=== PATIENT | female | born 1975 | race Caucasian/White ===

== ENCOUNTER → 2016-05-18 | Outpatient (CLI) | payer MEDICARE ==
--- NOTE | 2016-06-04 01:22 | ECWPNPC ---
PATIENT NAME: SAEED MCLEOD : 1975 GENDER: FEMALE VISIT DATE: 05/18/2016 DISCHARGE DATE: 05/18/16 1510 VISIT LOCKED DATE TIME: PHYSICIAN: SAWYER CASE RESOURCE: SAWYER CASE REASON FOR APPOINTMENT 1. BACK HISTORY OF PRESENT ILLNESS HISTORY OF PRESENT ILLNESS: PAIN THE PATIENT DESCRIBES THE PAIN... FALL RISK SCREENING: SCREENING :NO FALLS IN THE PAST YEAR NEW PATIENT CONSULT: WHEN DID YOUR PAIN FIRST START? . BRIEFLY DESCRIBE HOW YOUR PAIN STARTED? . HOW DOES YOUR PAIN CHANGE WITH TIME? . DOES YOUR PAIN AWAKEN YOU FROM SLEEP? . HOW MANY HOURS OF SLEEP DO YOU NORMALLY GET? . ANY DIAGNOSTIC TESTING? . FACILITY WHERE TESTS WERE DONE? ____. PAIN TREATMENT TREATMENT YES CANCER HAVE YOU EVER HAD ANY TYPE OF CANCER?NO NO. 41 Y/O FEMALE WITH LONG HX OF LOW BACK PAIN WITH INTERMITTENT BILATERAL LEG PAIN AND PARATHESIA.PAIN BEGAN AFTER FULL TERM VAGINAL DELIVERY IN 1995,HISTORY OF TWO LUMBAR SURGERIES AT AGE 21 AND 24.REPORTS NO IMPROVEMENT POST SURGERY.DENIES ANY INJURIES OR MVA IN PAST.STRONG FAMILY HX OF BACK PROBLEMS.HAS A 34 Y/O SISTER W HX OF 7 BACK SURGERIES AND FUSION.HAS A 35 Y/O BROTHER WITH HX OF TWO BACK SURGERIES AT A YOUNG AGE.CURRENTLY USING MSCONTIN 30MG BID AND MSIR 15MG 1/2 TAB UP TO 2 TAB PER DAY FOR SEVERE BTP.ALSO USES INVERSION TABLE PRN WHICH IS HELPFUL.OVER THE PAST 6MOS PAIN HAS GOTTEN WORSE AND SHE BEGAN TO EXPERIENCE NECK AND THORACIC BACK PAIN.PATIENT IS VERY WORRIED THAT HER ENTIRE BACK IS GIVING OUT.SHE SPENDS ALOT OF TIME IN BED PAST 6MOS BTP MEDICATION AND INVERSION TABLE HAVE NOT BEEN HELPFUL.HAS TRIALED LESI IN PAST APROXIMATLEY 5 YEARS AGO.SHE HAS BEEN OFFERED LUMBAR FUSION BUT STATES SHE WILL NEVER HAVE ANOTHER BACK SURGERY.PAIN IS AGGRVATED BY PROLONGED STANDING IE >10MIN.MOST PAIN IS LOCATED ACROSS LOW BACK WITH INTERMITTENT EPISODES OF BILATERAL RADICULAR SYMPTOMS.DENIES BOWEL OR BLADDER INCONTINENCE.DENIES RECENT FEVER ,ILLNESS OR WEIGHT LOSS.TODAY 05-18-16 PATIENT DOES REPORT IMPROVEMENT IN HER ABILITY TO TOLERATE PAIN BETTER WITH USE OF MS CONTIN 30MG AND MSIR 15MG PRN ORDERED AT INITIAL VISIT ONE MOS. AGO.DENIES SIDE EFFECTS.RATING PAIN VAS 6/10. CURRENT MEDICATIONS TAKING OMEPRAZOLE 40 MG CAPSULE DELAYED RELEASE 1 CAPSULE ORALLY ONCE A DAY TAKING NAPROXEN 500 MG TABLET 1 TABLET NEEDED ORALLY EVERY 12 HRS TAKING MULTI VITAMIN DAILY - TABLET 1 TABLET ORALLY ONCE A DAY TAKING MORPHINE SULFATE ER 30 MG TABLET EXTENDED RELEASE 1 TABLET ORALLY EVERY 12 HRS TAKING MORPHINE SULFATE 15 MG TABLET 1/2 TABLET ORALLY BID PRN BREAKTHROUGH PAIN NOT-TAKING LYRICA 50 MG CAPSULE 1 CAPSULE ORALLY BID NOT-TAKING BACTRIM 400-80 MG TABLET 2 TABLETS ORALLY ONCE A DAY MEDICATION LIST REVIEWED AND RECONCILED WITH THE PATIENT PAST MEDICAL HISTORY CHRONIC BACK PAIN EMG SHOWS MILD, CHRONIC L S1 AND POSSIBLY L5 RADICULOPATHY; MILD CHRONIC R L5 RADICULOPATHY (08/2015) ALLERGIES ASPIRIN: SWELLING : ALLERGY GABAPENTIN: "FELT YUCKY": SIDE EFFECTS SOCIAL HISTORY GENERAL: TOBACCO USE ARE YOU A:NONSMOKER LEARNING BARRIERS / SPECIAL NEEDS ORIENTED TO PLAN OF CARE: PATIENT, PAIN MANAGEMENT PATIENT, ORIENTED TO PLAN OF CARE: PATIENT, PAIN MANAGEMENT PATIENT. NEW PATIENT PAIN DIARY TODAY'S VISITNOTES FROM 0-10, WHAT LEVEL IS YOUR PAIN TODAY?0 PAIN CLINIC PFS, CLERGY, PUBLIC HEALTH REFERRALS PFS REFERRAL NEEDED?NO CLERGY REFERRAL NEEDED?NO PUBLIC HEALTH REFERRAL NEEDED?NO WAS THE PROVIDER NOTIFIED OF ANY PERTINENT INFO?NO PFS REFERRAL NEEDED?NO CLERGY REFERRAL NEEDED?NO PUBLIC HEALTH REFERRAL NEEDED?NO WAS THE PROVIDER NOTIFIED OF ANY PERTINENT INFO?NO REVIEW OF SYSTEMS CONSTITUTIONAL: ANY CHANGE IN YOUR MEDICAL CONDITION? NO . CHILLS NO . FEVER NO . INFECTION: DO YOU HAVE NEW INFECTIONS? NO . DO YOU HAVE HISTORY OF MRSA? NO . MUSCULOSKELETAL: ANY NEW PATTERNS OF PAIN OR NUMBNESS? NO . GASTROENTEROLOGY: ANY NEW CHANGE IN BOWEL CONTROL? NO . GENITOURINARY: ANY NEW CHANGE IN BLADDER CONTROL? NO . IS THERE A CHANCE YOU COULD BE ? NO . HEMATOLOGY/LYMPH: DO YOU TAKE ANY BLOOD THINNERS? (FOR EXAMPLE- COUMADIN, PLAVIX, AGGRENOX, PLATEL, PRADAXA, OR XARELTO) NO . WHEN WAS YOUR LAST DOSE? DATE: TIME: . NEUROLOGY: HAVE YOU FALLEN IN THE PAST 6 MONTHS? NO . ANY NEW EXTREMITY NUMBNESS OR WEAKNESS? NO . CARDIOLOGY: DO YOU HAVE A PACEMAKER OR DEFIBRILLATOR? NO . RESPIRATORY: HAVE YOU BEEN SICK IN THE PAST WEEK? NO . FEVER NO . FLU LIKE SYMPTOMS? NO . COUGH NO . INTEGUMENTARY: DO YOU HAVE ANY RASHES OR OPEN SORES? NO . ALLERGIC/IMMUNO: ARE YOU ALLERGIC TO SHELLFISH OR IV DYE? NO . ANY NEW ALLERGIES? NO . PSYCHIATRIC: DO YOU HAVE THOUGHTS OF HURTING YOURSELF OR SOMEONE ELSE? NO . ARE YOU ABUSED, NEGLECTED, OR IN AN UNSAFE ENVIRONMENT? NO . ENDOCRINOLOGY: ARE YOU DIABETIC? NO . OTHER: DO YOU NEED ANY PRESCRIPTIONS? YES-05/22/16 . IF YES, PLEASE LIST: MORPHINE SULFATE ER 30MG AND MORPHINE SULFATE IR 15 MG TABS . ANY NEW PROBLEMS WITH YOUR MEDICATIONS? NO . WHEN DID YOU LAST EAT? ____ . WHEN DID YOU LAST DRINK? ____ . WHAT DID YOU LAST DRINK? ____ . NAME OF PERSON DRIVING YOU HOME? ____ . DO YOU HAVE ANY OTHER QUESTIONS OR CONCERNS NO . REVIEWED BY: PROVIDER: SAWYER BARAJAS . VITAL SIGNS WT 107 LBS, HT 64 IN, BMI 18.36 INDEX, BP 144/75 MM HG, HR 86 /MIN, RR 16 /MIN, TEMP 98.8 F, OXYGEN SAT % 99, NA INITIALS TL 1426, REVIEWED BY: AM. EXAMINATION GENERAL EXAMINATION: HEENT:HEAD:, NORMOCEPHALIC, EYES:, EYES NORMAL, NOSE:, NOSE CLEAR, THROAT: NORMAL. LUNGS:LUNG SOUNDS ARE CLEAR. HEART:HEART RATE REGULAR. ABDOMEN:SOFT AND NOT TENDER, NON-DISTENDED. MUSCULOSKELETAL:*. LUMBAR SACRAL SPINEMUSCLE STRENGTH TESTING 5/5 BILATERAL, PALPATION: NEGATIVE FOR PAIN OVER L/S SPINE. TENDERNESS NOTED OVER LEFT LUMBAR PARASPINAL.. THORACIC SPINENEGATIVE FOR PAIN WITH PALPATION OF THORACIC SPINE. NEGATIVE FOR PAIN WITH PALPATION OF THORACIC PARASPINAL. CERVICALNEGATIVE FOR PAIN WITH PALPATION OF CERVICAL SPINE. NEGATIVE FOR PAIN WITH PALPATION OF CERVICAL PARASPINALS. NEGATIVE FOR PAIN WITH PALPATION OF TRAPEZIUS BILAT. SKIN:PINKISH RED LACE LIKE DISCOLORATION OVER LOW BACK.PATIENT STATES IT IS FROM HEATING PAD.. NEUROLOGIC EXAM:ALERT AND ORIENTED X 3, DTRS 1-2+ IN ALL 4 EXTREMITIES, DENIES UPPER EXTREMETIES SENSORY LOSS, DENIES LOWER EXTREMETIES SENSORY LOSS. DIAGNOSTIC:MRI L/S [id number]-DIFFUSE DISC BULGE L4-5 AND DIFFUSE DISC BULGE AND RETROLITHESIS AT THE L5-S1 LEVEL.THE DISC BULGE AT L5-S1 ABUTS THE S1 NERVES.NO SIGNIFICANT CHANGE FROM 02-06-08 MRI. NCS LOWER [id number]-MILD,CHRONIC OR OLD LEFT S1 AND POSSIBLY L5 RADICULOPATHY.MILD ,CHRONICOR OLD RIGHT L5 RADICULOPATHY.. ASSESSMENTS LUMBAR POST-LAMINECTOMY SYNDROME - M96.1 (PRIMARY) CERVICALGIA - M54.2 PAIN IN THORACIC SPINE - M54.6 CHRONIC PRESCRIPTION OPIATE USE - Z79.891 TREATMENT LUMBAR POST-LAMINECTOMY SYNDROME REFILL MORPHINE SULFATE ER TABLET EXTENDED RELEASE, 30 MG, 1 TABLET, ORALLY, EVERY 12 HRS, 30 DAY(S), 60, REFILLS 0 REFILL MORPHINE SULFATE TABLET, 15 MG, 1/2 TABLET, ORALLY, BID PRN BREAKTHROUGH PAIN, 30 DAY(S), 30, REFILLS 0 PROCEDURE CODES FA211 ESTABILISHED PATIENT [facility] CHARGE G8730 PAIN ASSESS POS TOOL F/U PLAN DOC G8427 DOC MEDS VERIFIED W/PT OR RE FOLLOW UP [address] LONGO TO DISCUSS DCS ELECTRONICALLY SIGNED BY KARL MONCADA ON 06/03/2016 AT 05:11 PM EST DISCLAIMER : THIS IS A VISIT SUMMARY EXTRACTED FROM THE [employer] CHART. IT IS NOT A COPY OF THE [employer] PROGRESS NOTE. TIMOTHY
== END ==
LOC: M PAIN 14:20
PROVIDERS: ATTEND Nurse Practitioner Family
DX: Z09 Encounter for follow-up examination after completed treatment for conditions other than malignant neoplasm (principal); G89.29 Other chronic pain; M96.1 Postlaminectomy syndrome, not elsewhere classified; M54.2 Cervicalgia; M54.6 Pain in thoracic spine; Z88.8 Allergy status to other drugs, medicaments and biological substances; Z79.891 Long term (current) use of opiate analgesic; Z79.899 Other long term (current) drug therapy
CPT/HCPCS: G0463 ×2

== ENCOUNTER → 2016-07-08 | Outpatient (CLI) | payer MEDICARE ==
--- NOTE | 2016-07-17 23:51 | ECWPNPC ---
PATIENT NAME: SAEED MCLEOD : 1975 GENDER: FEMALE VISIT DATE: 07/08/2016 DISCHARGE DATE: 07/08/16 1444 VISIT LOCKED DATE TIME: PHYSICIAN: TYLER LONGO RESOURCE: TYLER LONGO REASON FOR APPOINTMENT 1. DISCUSS POSSIBLE DCS HISTORY OF PRESENT ILLNESS HISTORY OF PRESENT ILLNESS: PAIN THE PATIENT DESCRIBES THE PAIN... 41 YEAR OLD FEMALE PATIENT WITH HISTORY OF CHRONIC THORACIC AND LUMBAR PAIN. PATIENT DESCRIBES THE PAIN . TENDER WITH A PAIN SCORE OF 3/10 ON TODAY'S VISIT. PATIENT REPORTS THAT WHEN SHE SITS FOR A LONG PERIOD OF TIME THE PAIN WORSENS AND BEGINS TO SPREAD. PATIENT STATES THAT SINCE SHE HAS ARRIVED THE PAIN IS RADIATING DOWN HER LEGS WITH THE LEG HURTING MORE THAN THE RIGHT. ALSO NOW HER PAIN IS GOING PASS HER NECK AREA AND RADIATING TO HER SHOULDERS ESPECIALLY HER RIGHT SHOULDER. PATIENT REPORTS THAT SHE HAS DIFFICULTIES SLEEPING AT NIGHT, BUT USUALLY ONCE SHE TAKES HER MEDICATION SHE CAN STAY ASLEEP. PATIENT STATES THAT SHE HAS HAD THIS PAIN SINCE SHE WAS 20 YEARS OLD. PATIENT REPORTS THAT SHE HAS HAD TWO SURGERIES IN HER BACK ONE WHEN SHE WAS 23 AND THE SECOND WHEN SHE WAS 24. PATIENT STATES THAT SHE HAS BEEN TAKING MORPHINE SINCE SEPTEMBER. PATIENT REPORTS THAT SINCE SHE HAS STARTED ON MORPHINE SHE HAS SEEN AN INCREASED IN HER QUALITY OF LIFE, BUT IT DOES NOT TAKE ALL THE PAIN AWAY, BUT IT HAS ALLOWED HER TO BE MORE MOBILE. PATIENT REPORTS THAT SHE IS SEEING ME TODAY TO DISCUSS THE POSSIBILITY OF A DCS. PATIENT REPORTS THAT SHE HAS TRIED INJECTIONS IN THE PAST AND THEY DID NOT WORK. PATIENT REPORTS THAT HER THORACIC AND LUMBAR BACK HURTS THE MOST. PATIENT DENIES UNEXPLAINABLE WEIGHT LOSS, FEVER, CHILLS, NEW CHANGES ON HIS/HER URINARY OR BOWEL CONTROL. FALL RISK SCREENING: SCREENING :NO FALLS IN THE PAST YEAR CURRENT MEDICATIONS TAKING OMEPRAZOLE 40 MG CAPSULE DELAYED RELEASE 1 CAPSULE ORALLY ONCE A DAY TAKING MULTI VITAMIN DAILY - TABLET 1 TABLET ORALLY ONCE A DAY TAKING MORPHINE SULFATE ER 30 MG TABLET EXTENDED RELEASE 1 TABLET ORALLY EVERY 12 HRS TAKING MORPHINE SULFATE 15 MG TABLET 1/2 TABLET ORALLY BID PRN BREAKTHROUGH PAIN TAKING NAPROXEN 500 MG TABLET 1 TABLET NEEDED ORALLY EVERY 12 HRS NOT-TAKING LYRICA 50 MG CAPSULE 1 CAPSULE ORALLY BID NOT-TAKING BACTRIM 400-80 MG TABLET 2 TABLETS ORALLY ONCE A DAY MEDICATION LIST REVIEWED AND RECONCILED WITH THE PATIENT PAST MEDICAL HISTORY CHRONIC BACK PAIN EMG SHOWS MILD, CHRONIC L S1 AND POSSIBLY L5 RADICULOPATHY; MILD CHRONIC R L5 RADICULOPATHY (08/2015) ALLERGIES ASPIRIN: SWELLING : ALLERGY GABAPENTIN: "FELT YUCKY": SIDE EFFECTS SURGICAL HISTORY LAMINECTOMY 1997 ACK SURGERY AGAIN 1998 FAMILY HISTORY NO FAMILY HISTORY DOCUMENTED. SOCIAL HISTORY GENERAL: TOBACCO USE ARE YOU A:NONSMOKER LEARNING BARRIERS / SPECIAL NEEDS ORIENTED TO PLAN OF CARE: PATIENT, PAIN MANAGEMENT PATIENT, ORIENTED TO PLAN OF CARE: PATIENT, PAIN MANAGEMENT PATIENT. NEW PATIENT PAIN DIARY TODAY'S VISITNOTES FROM 0-10, WHAT LEVEL IS YOUR PAIN TODAY?0 PAIN CLINIC PFS, CLERGY, PUBLIC HEALTH REFERRALS PFS REFERRAL NEEDED?NO CLERGY REFERRAL NEEDED?NO PUBLIC HEALTH REFERRAL NEEDED?NO WAS THE PROVIDER NOTIFIED OF ANY PERTINENT INFO?NO PFS REFERRAL NEEDED?NO CLERGY REFERRAL NEEDED?NO PUBLIC HEALTH REFERRAL NEEDED?NO WAS THE PROVIDER NOTIFIED OF ANY PERTINENT INFO?NO HOSPITALIZATION/MAJOR DIAGNOSTIC PROCEDURE NO HOSPITALIZATION HISTORY. REVIEW OF SYSTEMS CONSTITUTIONAL: ANY CHANGE IN YOUR MEDICAL CONDITION? NO . CHILLS NO . FEVER NO . INFECTION: DO YOU HAVE NEW INFECTIONS? NO . DO YOU HAVE HISTORY OF MRSA? NO . MUSCULOSKELETAL: ANY NEW PATTERNS OF PAIN OR NUMBNESS? NO . GASTROENTEROLOGY: ANY NEW CHANGE IN BOWEL CONTROL? NO . GENITOURINARY: ANY NEW CHANGE IN BLADDER CONTROL? NO . IS THERE A CHANCE YOU COULD BE ? NO . HEMATOLOGY/LYMPH: DO YOU TAKE ANY BLOOD THINNERS? (FOR EXAMPLE- COUMADIN, PLAVIX, AGGRENOX, PLATEL, PRADAXA, OR XARELTO) NO . WHEN WAS YOUR LAST DOSE? DATE: TIME: . NEUROLOGY: HAVE YOU FALLEN IN THE PAST 6 MONTHS? NO . ANY NEW EXTREMITY NUMBNESS OR WEAKNESS? NO . CARDIOLOGY: DO YOU HAVE A PACEMAKER OR DEFIBRILLATOR? NO . RESPIRATORY: HAVE YOU BEEN SICK IN THE PAST WEEK? NO . FEVER NO . FLU LIKE SYMPTOMS? NO . COUGH NO . INTEGUMENTARY: DO YOU HAVE ANY RASHES OR OPEN SORES? NO . ALLERGIC/IMMUNO: ARE YOU ALLERGIC TO SHELLFISH OR IV DYE? NO . ANY NEW ALLERGIES? NO . PSYCHIATRIC: DO YOU HAVE THOUGHTS OF HURTING YOURSELF OR SOMEONE ELSE? NO . ARE YOU ABUSED, NEGLECTED, OR IN AN UNSAFE ENVIRONMENT? NO . ENDOCRINOLOGY: ARE YOU DIABETIC? NO . OTHER: DO YOU NEED ANY PRESCRIPTIONS? NO . IF YES, PLEASE LIST: ____ . ANY NEW PROBLEMS WITH YOUR MEDICATIONS? NO . WHEN DID YOU LAST EAT? ____ . WHEN DID YOU LAST DRINK? ____ . WHAT DID YOU LAST DRINK? ____ . NAME OF PERSON DRIVING YOU HOME? ____ . DO YOU HAVE ANY OTHER QUESTIONS OR CONCERNS NO . REVIEWED BY: PROVIDER: TYLER LONGO MD . VITAL SIGNS WT 107 LBS, HT 64 IN, BMI 18.36 INDEX, BP 128/79 MM HG, HR 67 /MIN, RR 16 /MIN, TEMP 98.5 F, OXYGEN SAT % 98, SAFE IN ENV? (Y/N) YES, NA INITIALS TL 1325, REVIEWED BY: MOHINDER. EXAMINATION : PATIENT IS ALERT O X 3 AND COOPERATIVE. PATIENT HAS DIFFICULTIES STANDING UP FOR THE EXAMINATION. PATIENT AMBULATES WITH A LIMP ON THE LEFT LEG. PATIENT IS ABLE TO FLEX HER BACK TO 90 DEGREES AND EXTEND HER BACK TO 5 DEGREES. PATIENT HAS TENSION IN THE BACK AND LEFT LEG. PATIENT IS ABLE TO ABDUCT HER UPPER EXTREMITIES. THERE IS A LEFT SACROILIAC JOINT DYSFUNCTION. BOTH LEGS ARE RATHER WEAK. MRI OF THE LUMBAR SPINE DONE ON 09-03-2015 SHOWS DISC BULGES AND POST LAMINECTOMY CHANGES. MRI OF THE THORACIC SPINE DONE ON 04-19-2016 SHOWS DISC PROTRUSIONS AND DISC EXTRUSIONS. 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 MCLEOD'S PAIN MANAGEMENT CASE. I DISCUSSED IN DETAIL WITH THE PATIENT, THAT I BELIEVE SHE IS NOT NECESSARILY THE BEST CANDIDATE FOR A DCS DUE TO THE PAIN SHE IS EXPERIENCING IS MAINLY AXIAL PAIN IN HER THORACIC AND LUMBAR SPINE. I AM ALWAYS WILLING TO DO ATRIAL BUT ADVICE TO TRY OTHER PROCEDURES FIRST. I DISCUSSED WITH THE PATIENT THAT I AM CONCERN ABOUT HER MORPHINE INTAKE. PATIENT ACKNOWLEDGES MY CONCERNS AND STATES THAT SHE WOULD LIKE TO COME OFF MORPHINE IF THERE WAS AN ALTERNATIVE THAT WOULD HELP TO TAKE HER PAIN AWAY. I DISCUSSED WITH THE PATIENT AT THIS TIME IT WOULD BE BEST TO PROCEED WITH INJECTIONS TO SEE HOW THE INTERVENTIONS WILL AFFECT HER PAIN. PATIENT TO FOLLOW UP WITH SAWYER CASE IN 2 WEEKS. , INSTRUCTIONS WERE GIVEN, QUESTIONS WERE ANSWERED, PATIENT REPORTS UNDERSTANDING AND AGREES WITH THE PLAN. I, TIFFANY CLAYTON, DOCUMENTED THE ABOVE INFORMATION ACTING A SCRIBE FOR DR. LONGO. I HAVE REVIEWED THE ABOVE DOCUMENT, WRITTEN BY TIFFANY CLAYTON SCRIBE AND I VERIFY THAT IT IS ACCURATE. PROCEDURE CODES FA211 ESTABILISHED PATIENT [facility]AC[facility] CHARGE G8730 PAIN ASSESS POS TOOL F/U PLAN DOC G8427 DOC MEDS VERIFIED W/PT OR RE DISPOSITION & COMMUNICATION FOLLOW UP 2 WEEKS ELECTRONICALLY SIGNED BY TYLER LONGO MD ON 07/17/2016 AT 08:34 PM EDT DISCLAIMER : THIS IS A VISIT SUMMARY EXTRACTED FROM THE [employer] CHART. IT IS NOT A COPY OF THE [employer] PROGRESS NOTE. TIMOTHY
== END ==
LOC: M PAIN 13:20
PROVIDERS: ATTEND Anesthesiology
DX: M96.1 Postlaminectomy syndrome, not elsewhere classified (principal); M46.1 Sacroiliitis, not elsewhere classified; M51.17 Intervertebral disc disorders with radiculopathy, lumbosacral region; M51.16 Intervertebral disc disorders with radiculopathy, lumbar region; G89.29 Other chronic pain; Z79.899 Other long term (current) drug therapy; F17.200 Nicotine dependence, unspecified, uncomplicated; Z88.6 Allergy status to analgesic agent

== ENCOUNTER → 2016-07-22 | Outpatient (CLI) | payer MEDICARE ==
--- NOTE | 2016-07-28 00:02 | ECWPNPC ---
PATIENT NAME: SAEED MCLEOD : 1975 GENDER: FEMALE VISIT DATE: 07/22/2016 DISCHARGE DATE: 07/22/16 1553 VISIT LOCKED DATE TIME: PHYSICIAN: SAWYER CASE RESOURCE: SAWYER CASE REASON FOR APPOINTMENT 1. MEDS HISTORY OF PRESENT ILLNESS HISTORY OF PRESENT ILLNESS: HERE FOR F/U AFTER F/U APT. WITH DR. LONGO TO DISCUSS POSSIBILITY OF DCS .DR. LONGO IS ENCOURAGING HER TO CONSIDER INTERVENTIONAL TREATMENT PRIOR TO CONSIDERATION OF DCS.CONTINUES WITH CHRONIC LOW BACK AND THORACIC PAIN.RATING PAIN VAS 4/10.DESCRIBES PAIN CONSTANT AND TENDER.HISTORY OF POST LAMINECTOMY PAIN SYNDROME.DISCUSSED INTERVENTIONAL TREATMENT OPTIONS.POTENTIAL RISKS AND BENEFITS REVIEWED.PATIENT IS RELUCTAN BUT WANTS ALTERNATIVES TO MEDICATION.CURRENTLY ON CHRONIC OPIOD THERAPY THAT SHE FINDS MARGINALLY EFFECTIVE.DENIES SIDE EFFECTS. FALL RISK SCREENING: SCREENING :NO FALLS IN THE PAST YEAR CURRENT MEDICATIONS TAKING OMEPRAZOLE 40 MG CAPSULE DELAYED RELEASE 1 CAPSULE ORALLY ONCE A DAY TAKING MULTI VITAMIN DAILY - TABLET 1 TABLET ORALLY ONCE A DAY TAKING NAPROXEN 500 MG TABLET 1 TABLET NEEDED ORALLY EVERY 12 HRS TAKING MORPHINE SULFATE ER 30 MG TABLET EXTENDED RELEASE 1 TABLET ORALLY EVERY 12 HRS TAKING MORPHINE SULFATE 15 MG TABLET 1/2 TABLET ORALLY BID PRN BREAKTHROUGH PAIN NOT-TAKING LYRICA 50 MG CAPSULE 1 CAPSULE ORALLY BID NOT-TAKING BACTRIM 400-80 MG TABLET 2 TABLETS ORALLY ONCE A DAY MEDICATION LIST REVIEWED AND RECONCILED WITH THE PATIENT PAST MEDICAL HISTORY CHRONIC BACK PAIN EMG SHOWS MILD, CHRONIC L S1 AND POSSIBLY L5 RADICULOPATHY; MILD CHRONIC R L5 RADICULOPATHY (08/2015) ALLERGIES ASPIRIN: SWELLING : ALLERGY GABAPENTIN: "FELT YUCKY": SIDE EFFECTS LYRICA: FELT YUCKY": SIDE EFFECTS SOCIAL HISTORY GENERAL: TOBACCO USE ARE YOU A:CURRENT SMOKER HOW MANY CIGARETTES A DAY DO YOU SMOKE?5 OR LESS HOW SOON AFTER YOU WAKE UP DO YOU SMOKE YOUR FIRST CIGARETTE?AFTER 60 MIN HOW OFTEN DO YOU SMOKE CIGARETTES?EVERY DAY PATIENT COUNSELED ON THE DANGERS OF TOBACCO USE AND URGED TO QUIT:07/22/2016 ARE YOU INTERESTED IN QUITTING?THINKING ABOUT QUITTING PREVIOUS QUIT ATTEMPTS?YES, MORE THAN 6 MONTHS AGO. COUNSELED THE PATIENT ON SMOKING CESSATION, EDUCATION [id number] LEARNING BARRIERS / SPECIAL NEEDS ORIENTED TO PLAN OF CARE: PATIENT, PAIN MANAGEMENT PATIENT, ORIENTED TO PLAN OF CARE: PATIENT, PAIN MANAGEMENT PATIENT. NEW PATIENT PAIN DIARY TODAY'S VISITNOTES FROM 0-10, WHAT LEVEL IS YOUR PAIN TODAY?0 PAIN CLINIC PFS, CLERGY, PUBLIC HEALTH REFERRALS PFS REFERRAL NEEDED?NO CLERGY REFERRAL NEEDED?NO PUBLIC HEALTH REFERRAL NEEDED?NO WAS THE PROVIDER NOTIFIED OF ANY PERTINENT INFO?NO PFS REFERRAL NEEDED?NO CLERGY REFERRAL NEEDED?NO PUBLIC HEALTH REFERRAL NEEDED?NO WAS THE PROVIDER NOTIFIED OF ANY PERTINENT INFO?NO REVIEW OF SYSTEMS CONSTITUTIONAL: ANY CHANGE IN YOUR MEDICAL CONDITION? NO . CHILLS NO . FEVER NO . INFECTION: DO YOU HAVE NEW INFECTIONS? NO . DO YOU HAVE HISTORY OF MRSA? NO . MUSCULOSKELETAL: ANY NEW PATTERNS OF PAIN OR NUMBNESS? NO . GASTROENTEROLOGY: ANY NEW CHANGE IN BOWEL CONTROL? NO . GENITOURINARY: ANY NEW CHANGE IN BLADDER CONTROL? NO . IS THERE A CHANCE YOU COULD BE ? NO . HEMATOLOGY/LYMPH: DO YOU TAKE ANY BLOOD THINNERS? (FOR EXAMPLE- COUMADIN, PLAVIX, AGGRENOX, PLATEL, PRADAXA, OR XARELTO) NO . WHEN WAS YOUR LAST DOSE? DATE: TIME: . NEUROLOGY: HAVE YOU FALLEN IN THE PAST 6 MONTHS? NO . ANY NEW EXTREMITY NUMBNESS OR WEAKNESS? NO . CARDIOLOGY: DO YOU HAVE A PACEMAKER OR DEFIBRILLATOR? NO . RESPIRATORY: HAVE YOU BEEN SICK IN THE PAST WEEK? NO . FEVER NO . FLU LIKE SYMPTOMS? NO . COUGH NO . INTEGUMENTARY: DO YOU HAVE ANY RASHES OR OPEN SORES? NO . ALLERGIC/IMMUNO: ARE YOU ALLERGIC TO SHELLFISH OR IV DYE? NO . ANY NEW ALLERGIES? NO . PSYCHIATRIC: DO YOU HAVE THOUGHTS OF HURTING YOURSELF OR SOMEONE ELSE? NO . ARE YOU ABUSED, NEGLECTED, OR IN AN UNSAFE ENVIRONMENT? NO . ENDOCRINOLOGY: ARE YOU DIABETIC? NO . OTHER: DO YOU NEED ANY PRESCRIPTIONS? NO . IF YES, PLEASE LIST: ____ . ANY NEW PROBLEMS WITH YOUR MEDICATIONS? NO . WHEN DID YOU LAST EAT? ____ . WHEN DID YOU LAST DRINK? ____ . WHAT DID YOU LAST DRINK? ____ . NAME OF PERSON DRIVING YOU HOME? ____ . DO YOU HAVE ANY OTHER QUESTIONS OR CONCERNS NO . REVIEWED BY: PROVIDER: SAWYER BARAJAS . VITAL SIGNS WT 106.6 LBS, HT 64 IN, BMI 18.30 INDEX, BP 142/77 MM HG, HR 73 /MIN, RR 16 /MIN, TEMP 99.4 F, OXYGEN SAT % 96%, NA INITIALS SC14:40, REVIEWED BY: ABEL. EXAMINATION GENERAL EXAMINATION: HEENT:HEAD:, NORMOCEPHALIC, EYES:, EYES NORMAL, NOSE:, NOSE CLEAR, THROAT: NORMAL. LUNGS:LUNG SOUNDS ARE CLEAR. HEART:HEART RATE REGULAR. ABDOMEN:SOFT AND NOT TENDER, NON-DISTENDED. MUSCULOSKELETAL:*. LUMBAR SACRAL SPINEMUSCLE STRENGTH TESTING 5/5 BILATERAL, PALPATION: NEGATIVE FOR PAIN OVER L/S SPINE. TENDERNESS NOTED OVER LEFT LUMBAR PARASPINAL.. THORACIC SPINENEGATIVE FOR PAIN WITH PALPATION OF THORACIC SPINE. NEGATIVE FOR PAIN WITH PALPATION OF THORACIC PARASPINAL. CERVICALNEGATIVE FOR PAIN WITH PALPATION OF CERVICAL SPINE. NEGATIVE FOR PAIN WITH PALPATION OF CERVICAL PARASPINALS. NEGATIVE FOR PAIN WITH PALPATION OF TRAPEZIUS BILAT. SKIN:PINKISH RED LACE LIKE DISCOLORATION OVER LOW BACK.PATIENT STATES IT IS FROM HEATING PAD.. NEUROLOGIC EXAM:ALERT AND ORIENTED X 3, DTRS 1-2+ IN ALL 4 EXTREMITIES, DENIES UPPER EXTREMETIES SENSORY LOSS, DENIES LOWER EXTREMETIES SENSORY LOSS. DIAGNOSTIC:MRI L/S [id number]-DIFFUSE DISC BULGE L4-5 AND DIFFUSE DISC BULGE AND RETROLITHESIS AT THE L5-S1 LEVEL.THE DISC BULGE AT L5-S1 ABUTS THE S1 NERVES.NO SIGNIFICANT CHANGE FROM 02-06-08 MRI. NCS LOWER [id number],CHRONIC OR OLD LEFT S1 AND POSSIBLY L5 RADICULOPATHY.MILD ,CHRONICOR OLD RIGHT L5 RADICULOPATHY.. ASSESSMENTS LUMBAR POST-LAMINECTOMY SYNDROME - M96.1 (PRIMARY) CHRONIC LOW BACK PAIN WITH LEFT-SIDED SCIATICA - M54.42 CHRONIC PRESCRIPTION OPIATE USE - Z79.891 TREATMENT LUMBAR POST-LAMINECTOMY SYNDROME CONTINUE MORPHINE SULFATE ER TABLET EXTENDED RELEASE, 30 MG, 1 TABLET, ORALLY, EVERY 12 HRS CONTINUE MORPHINE SULFATE TABLET, 15 MG, 1/2 TABLET, ORALLY, BID PRN BREAKTHROUGH PAIN CAUDAL/LUMBAR EPIDURALSAWYER CASE 07/22/2016 3:33:58 PM > CAUDAL EPIDURAL NOTES: ISTOP REGISTRY REVIEWED AND DEMNOSTRATES COMPLLIANCE. BRINGS IN MEDICATIONS WHICH IS APPROPRIATE FOR WHAT WAS DISPENSED. RECENT URINE TOXICOLOGY REVIEWED. NO UNAUTHORIZED MEDICATIONS. NO ILLICIT SUBSTANCES AND PRESCRIBED MEDICATIONS WERE PRESENT. , RISKS AND BENEFITS OF NARCOTIC/OPIOD MEDICATIONS WERE REVIEWED WITH PATIENT - THIS INCLUDES BUT IS NOT LIMITED TO RISK OF DEPENDANCE/DEVELOPMENT OF ADDICTION, MOOD DISTURBANCE AND DEPRESSION, OSTEOPOROSIS, HORMONAL AND LABIDAL CHANGES, RESPIRATORY DEPRESSION AND . PATIENT IS ADVISED NOT TO DRIVE WHILE ON THESE MEDICATIONS. URINE TOX TODAY,LUMBAR EPIDURAL INJECTION: RECOVERY AT HOME MATERIAL WAS PRINTED,WHAT IS LUMBAR EPIDURAL INJECTION? MATERIAL WAS PRINTED,LUMBAR EPIDURAL INJECTION: YOUR PROCEDURE MATERIAL WAS PRINTED. CHRONIC LOW BACK PAIN WITH LEFT-SIDED SCIATICA CAUDAL/LUMBAR EPIDURALSAWYER CASE 07/22/2016 3:33:58 PM > CAUDAL EPIDURAL CHRONIC PRESCRIPTION OPIATE USE CAUDAL/LUMBAR EPIDURALSAWYER CASE 07/22/2016 3:33:58 PM > CAUDAL EPIDURAL PREVENTIVE MEDICINE PAIN CLINIC TEACHING: PROCEDURE TEACHING PRINTED INFORMATION ON LUMBAR EPIDURAL GIVEN TO AND EXPLAINED TO PATIENT AND SHE VERBALIZED UNDERSTANDING. PRE-PROCEDURE INSTRUCTIONS REVIEWED WITH PATIENT AND SHE VERBALIZED UNDERSTANDING.. PROCEDURE CODES FA211 ESTABILISHED PATIENT [facility] CHARGE G8730 PAIN ASSESS POS TOOL F/U PLAN DOC G8427 DOC MEDS VERIFIED W/PT OR RE DISPOSITION & COMMUNICATION FOLLOW UP 2WK POST (REASON: CAUDAL EPIDURAL) ELECTRONICALLY SIGNED BY KARL MONCADA ON 07/27/2016 AT 09:08 AM EDT DISCLAIMER : THIS IS A VISIT SUMMARY EXTRACTED FROM THE [employer] CHART. IT IS NOT A COPY OF THE [employer] PROGRESS NOTE. TIMOTHY
== END ==
LOC: M PAIN 14:00
PROVIDERS: ATTEND Nurse Practitioner Family
DX: Z09 Encounter for follow-up examination after completed treatment for conditions other than malignant neoplasm (principal); G89.29 Other chronic pain; M96.1 Postlaminectomy syndrome, not elsewhere classified; M54.42 Lumbago with sciatica, left side; F17.200 Nicotine dependence, unspecified, uncomplicated; Z88.6 Allergy status to analgesic agent; Z88.8 Allergy status to other drugs, medicaments and biological substances; Z79.891 Long term (current) use of opiate analgesic; Z79.899 Other long term (current) drug therapy

== ENCOUNTER → 2016-08-26 | Outpatient (CLI) | payer MEDICARE ==
[~2016-08-26] MED LIST: ISOVUE-M 300 61% 15ML VIAL (Q9967) As Ordered ONE; LIDOCAINE 1% SDV INJ 30 ML VIAL As Ordered ONE; methylPREDNISolone SUSP 40 MG/ML (DEPO-medrol) VIAL (J1030) As Ordered ONE
--- NOTE | 2016-08-26 17:52 | REP ---
FLUOROSCOPIC GUIDED SPINAL INJECTION: The films were reviewed with Dr. Branch. The patient has a history of low back pain. The portable C-Arm is provided in the OR for Dr. Talbot for fluoroscopic guidance. Two intraoperative fluoroscopic spot films were obtained for needle placement verification for caudal epidural injection. The films are on the PACs system and are available for review. 4 seconds of fluoroscopy time was utilized for this procedure. Reviewed by BALJIT Brown 08/29/2016 08:18 AEdited and Signed by Nate Branch MD 08/29/2016 05:37 P
--- NOTE | 2016-09-05 00:18 | ECWPNPC ---
PATIENT NAME: SAEED MCLEOD : 1975 GENDER: FEMALE VISIT DATE: 08/26/2016 DISCHARGE DATE: 08/26/16 1344 VISIT LOCKED DATE TIME: PHYSICIAN: TYLER LONGO RESOURCE: TYLER LONGO REASON FOR APPOINTMENT 1. CAUDAL HISTORY OF PRESENT ILLNESS HISTORY OF PRESENT ILLNESS: PAIN THE PATIENT DESCRIBES THE PAIN... FALL RISK SCREENING: SCREENING :NO FALLS IN THE PAST YEAR CURRENT MEDICATIONS TAKING OMEPRAZOLE 40 MG CAPSULE DELAYED RELEASE 1 CAPSULE ORALLY ONCE A DAY, NOTES: 2 DAYS TAKING MULTI VITAMIN DAILY - TABLET 1 TABLET ORALLY ONCE A DAY, NOTES: 0700 TODAY TAKING MORPHINE SULFATE ER 30 MG TABLET EXTENDED RELEASE 1 TABLET ORALLY EVERY 12 HRS MDD2, NOTES: 0700 TODAY 08/26/16 TAKING MORPHINE SULFATE 15 MG TABLET 1/2 TABLET ORALLY BID PRN MDD2, NOTES: YESTERDAY 4PM TAKING NAPROXEN 500 MG TABLET 1 TABLET NEEDED ORALLY EVERY 12 HRS, NOTES: LAST NIGHT NOT-TAKING LYRICA 50 MG CAPSULE 1 CAPSULE ORALLY BID NOT-TAKING BACTRIM 400-80 MG TABLET 2 TABLETS ORALLY ONCE A DAY MEDICATION LIST REVIEWED AND RECONCILED WITH THE PATIENT PAST MEDICAL HISTORY CHRONIC BACK PAIN EMG SHOWS MILD, CHRONIC L S1 AND POSSIBLY L5 RADICULOPATHY; MILD CHRONIC R L5 RADICULOPATHY (08/2015) ALLERGIES ASPIRIN: SWELLING : ALLERGY GABAPENTIN: "FELT YUCKY": SIDE EFFECTS LYRICA: FELT YUCKY": SIDE EFFECTS SURGICAL HISTORY LAMINECTOMY 1997 [facility] SURGERY AGAIN 1998 REVIEW OF SYSTEMS CONSTITUTIONAL: ANY CHANGE IN YOUR MEDICAL CONDITION? NO . CHILLS NO . FEVER NO . INFECTION: DO YOU HAVE NEW INFECTIONS? NO . DO YOU HAVE HISTORY OF MRSA? NO . MUSCULOSKELETAL: ANY NEW PATTERNS OF PAIN OR NUMBNESS? NO . GASTROENTEROLOGY: ANY NEW CHANGE IN BOWEL CONTROL? NO . GENITOURINARY: ANY NEW CHANGE IN BLADDER CONTROL? NO . IS THERE A CHANCE YOU COULD BE ? NO . HEMATOLOGY/LYMPH: DO YOU TAKE ANY BLOOD THINNERS? (FOR EXAMPLE- COUMADIN, PLAVIX, AGGRENOX, PLATEL, PRADAXA, OR XARELTO) NO . WHEN WAS YOUR LAST DOSE? DATE: TIME: . NEUROLOGY: HAVE YOU FALLEN IN THE PAST 6 MONTHS? NO . ANY NEW EXTREMITY NUMBNESS OR WEAKNESS? NO . CARDIOLOGY: DO YOU HAVE A PACEMAKER OR DEFIBRILLATOR? NO . RESPIRATORY: HAVE YOU BEEN SICK IN THE PAST WEEK? NO . FEVER NO . FLU LIKE SYMPTOMS? NO . COUGH NO . INTEGUMENTARY: DO YOU HAVE ANY RASHES OR OPEN SORES? NO . ALLERGIC/IMMUNO: ARE YOU ALLERGIC TO SHELLFISH OR IV DYE? NO . ANY NEW ALLERGIES? NO . PSYCHIATRIC: DO YOU HAVE THOUGHTS OF HURTING YOURSELF OR SOMEONE ELSE? NO . ARE YOU ABUSED, NEGLECTED, OR IN AN UNSAFE ENVIRONMENT? NO . ENDOCRINOLOGY: ARE YOU DIABETIC? NO . OTHER: DO YOU NEED ANY PRESCRIPTIONS? NO . IF YES, PLEASE LIST: ____ . ANY NEW PROBLEMS WITH YOUR MEDICATIONS? NO . WHEN DID YOU LAST EAT? LAST NIGHT . WHEN DID YOU LAST DRINK? 1030 TODAY . WHAT DID YOU LAST DRINK? DANIELLE HARRISON . NAME OF PERSON DRIVING YOU HOME? DANIELITO . DO YOU HAVE ANY OTHER QUESTIONS OR CONCERNS NO . REVIEWED BY: PROVIDER: . VITAL SIGNS WT 107.0 LBS, HT 64 IN, BMI 18.36 INDEX, BP 124/59 MM HG, HR 66 /MIN, RR 16 /MIN, TEMP 98.9 F, OXYGEN SAT % 100%, NA INITIALS TL 1104, REVIEWED BY: NL. ASSESSMENTS INTERVERTEBRAL DISC DISORDERS WITH RADICULOPATHY, LUMBOSACRAL REGION - M51.17 (PRIMARY) PROCEDURES PN CAUDAL EPIDURALS PRE PROCEDURE DIAGNOSIS LUMBAR POST LAMINECTOMY PAIN SYNDROME POST PROCEDURE DIAGNOSIS LUMBAR POST LAMINECTOMY PAIN SYNDROME PROCEDURE CAUDAL EPIDURAL STEROID INJECTION UNDER FLUOROSCOPIC GUIDANCE SURGEON DR. TYLER LONGO WEBMASTER NONE ANESTHESIA LOCAL PRE PROCEDURE NOTE THE PATIENT HAS HISTORY OF CHRONIC LOW BACK PAIN. I EVALUATE THE PATIENT AND REVIEWED THE CHART. I WENT OVER THE RISKS, ALTERNATIVES, AND BENEFITS ASSOCIATED WITH THIS PROCEDURE. THE PATIENT WOULD LIKE TO PROCEED AND GIVE CONSENT TO PERFORMED THE PROCEDURE. THE PATIENT DENIES UNEXPLAINABLE WEIGHT LOSS, FEVER, CHILLS, OR NEW CHANGES IN URINARY OR BOWEL CONTROL DESCRIPTION OF PROCEDURE THE PATIENT WAS BROUGHT TO THE PROCEDURE ROOM AND PLACED IN THE PRONE POSITION. THE LUMBOSACRAL AREA WAS CLEANED WITH BETADINE SOLUTION AND DRAPED ASEPTICALLY. THE PROCEDURE WAS DONE UNDER STERILE CONDITIONS. I CHECKED LATERALITY AND THE LEVEL WHERE THE PROCEDURE WAS GOING TO BE PERFORMED WITH THE PATIENT AND THE SUPPORTING STAFF AT THE MOMENT OF THE TIME OUT IN THE PROCEDURE ROOM. UNDER FLUOROSCOPIC GUIDANCE, THE TARGET POINT WAS SELECTED AT THE EPIDURAL SPACE BELOW THE SACROCOCCYGEAL LIGAMENT. LIDOCAINE 0.5% WAS USE TO NUMB THE SKIN AND THE SUBCUTANEOUS TISSUE BELOW IT. AN EPIDURAL TUOHY NEEDLE, 17-GAUGE, WAS ADVANCED UNDER FLUOROSCOPIC GUIDANCE AND FOLLOWING PATIENT FEEDBACK UNTIL THE EPIDURAL SPACE WAS REACHED 6 CM DEEP INTO THE SKIN BY THE LOSS OF RESISTANCE TECHNIQUE. ISOVUE M DYE 30%, 0.25 ML, WAS INJECTED SHOWING ADEQUATE SPREAD OF THE DYE. THEN, A SOLUTION OF 6 ML OF NORMAL SALINE WITH DEPO-MEDROL 60 MG WAS INJECTED SLOWLY FOLLOWING THE PATIENT FEEDBACK. THERE WAS NO EVIDENCE OF BLOOD, PARESTHESIA OR CEREBROSPINAL FLUID DURING THE PROCEDURE. THE PATIENT WAS SENT TO THE RECOVERY ROOM. THE PATIENT WAS MOVING THE EXTREMITIES AND DOING WELL. THERE WAS NO COMPLICATION DURING THE PROCEDURE. FLUOROSCOPY TIME WAS 4 SECONDS POST PROCEDURE NOTE THE PATIENT WILL BE SEEN IN A FOLLOW UP IN THE NEXT FEW WEEKS. INSTRUCTIONS WERE GIVEN, QUESTIONS WERE ANSWERED, AND THE PATIENT EXPRESSED UNDERSTANDING AND AGREES WITH THE PLAN. I, EVELIA HERNANDEZ, DOCUMENTED THE ABOVE INFORMATION ACTING A SCRIBE FOR DR. LONGO. I HAVE REVIEWED THE ABOVE DOCUMENT, WRITTEN BY EVELIA YOU AND I VERIFY THAT IT IS ACCURATE DIAGNOSTIC IMAGING [facility] FLUORO GUIDE SPINE INJECTION (PAIN)[id number] PROCEDURE CODES 07675 LUMBAR/SACRAL W/ IMAGING 6045F RADXPS IN END [id number] PXD DISPOSITION & COMMUNICATION FOLLOW UP 3 WEEKS ELECTRONICALLY SIGNED BY TYLER LONGO MD ON 09/04/2016 AT 05:49 PM EDT DISCLAIMER : THIS IS A VISIT SUMMARY EXTRACTED FROM THE [employer] CHART. IT IS NOT A COPY OF THE [employer] PROGRESS NOTE. MTDD
== END ==
LOC: M PAIN 11:00
PROVIDERS: ATTEND Anesthesiology
DX: G89.29 Other chronic pain (principal); M51.17 Intervertebral disc disorders with radiculopathy, lumbosacral region; F17.200 Nicotine dependence, unspecified, uncomplicated; Z88.6 Allergy status to analgesic agent; Z88.1 Allergy status to other antibiotic agents; Z88.8 Allergy status to other drugs, medicaments and biological substances; Z79.891 Long term (current) use of opiate analgesic; Z79.899 Other long term (current) drug therapy
CPT/HCPCS: 62323; J1030; Q9967

== ENCOUNTER → 2016-09-14 | Outpatient (CLI) | payer MEDICARE, MEDICAID ==
--- NOTE | 2016-09-29 00:19 | ECWPNPC ---
PATIENT NAME: SAEED MCLEOD : 1975 GENDER: FEMALE VISIT DATE: 09/14/2016 DISCHARGE DATE: 09/14/16 1202 VISIT LOCKED DATE TIME: PHYSICIAN: SAWYER CASE RESOURCE: SAWYER CASE REASON FOR APPOINTMENT 1. POST PROCEDURE HISTORY OF PRESENT ILLNESS HISTORY OF PRESENT ILLNESS: HERE FOR POST PROCEDURE F/U.HAD CAUDAL EPIDURAL ON 08-26-16.REPORTS >50 % IMPROVEMENT IN PAIN X5 DAYS THEN PAIN HAS RETURNED.ALSO COMPLAINING OF CRUSHING PAIN IN MID SPINE.DISCUSSED MEDICATION AND TREATMENT OPTIONS.RATING PAIN VAS 5/10.PAIN IS AGGREVATED BY PROLONGED SITTING OR WALKING.RELIEVED SOMEWHAT WITH HER CURRENT CHONIC PAIN MEDICATION. PAIN THE PATIENT DESCRIBES THE PAIN... FALL RISK SCREENING: SCREENING :NO FALLS IN THE PAST YEAR CURRENT MEDICATIONS TAKING OMEPRAZOLE 40 MG CAPSULE DELAYED RELEASE 1 CAPSULE ORALLY ONCE A DAY TAKING MULTI VITAMIN DAILY - TABLET 1 TABLET ORALLY ONCE A DAY TAKING MORPHINE SULFATE ER 30 MG TABLET EXTENDED RELEASE 1 TABLET ORALLY EVERY 12 HRS MDD2, NOTES: 0 TAKING MORPHINE SULFATE 15 MG TABLET 1/2 TABLET ORALLY BID PRN MDD2 TAKING NAPROXEN 500 MG TABLET 1 TABLET NEEDED ORALLY EVERY 12 HRS NOT-TAKING LYRICA 50 MG CAPSULE 1 CAPSULE ORALLY BID NOT-TAKING BACTRIM 400-80 MG TABLET 2 TABLETS ORALLY ONCE A DAY MEDICATION LIST REVIEWED AND RECONCILED WITH THE PATIENT PAST MEDICAL HISTORY CHRONIC BACK PAIN EMG SHOWS MILD, CHRONIC L S1 AND POSSIBLY L5 RADICULOPATHY; MILD CHRONIC R L5 RADICULOPATHY (08/2015) ALLERGIES ASPIRIN: SWELLING : ALLERGY GABAPENTIN: "FELT YUCKY": SIDE EFFECTS LYRICA: FELT YUCKY": SIDE EFFECTS REVIEW OF SYSTEMS CONSTITUTIONAL: ANY CHANGE IN YOUR MEDICAL CONDITION? NO . CHILLS NO . FEVER NO . INFECTION: DO YOU HAVE NEW INFECTIONS? NO . DO YOU HAVE HISTORY OF MRSA? NO . MUSCULOSKELETAL: ANY NEW PATTERNS OF PAIN OR NUMBNESS? NO . GASTROENTEROLOGY: ANY NEW CHANGE IN BOWEL CONTROL? NO . GENITOURINARY: ANY NEW CHANGE IN BLADDER CONTROL? NO . IS THERE A CHANCE YOU COULD BE ? NO . HEMATOLOGY/LYMPH: DO YOU TAKE ANY BLOOD THINNERS? (FOR EXAMPLE- COUMADIN, PLAVIX, AGGRENOX, PLATEL, PRADAXA, OR XARELTO) NO . WHEN WAS YOUR LAST DOSE? DATE: TIME: . NEUROLOGY: HAVE YOU FALLEN IN THE PAST 6 MONTHS? NO . ANY NEW EXTREMITY NUMBNESS OR WEAKNESS? NO . CARDIOLOGY: DO YOU HAVE A PACEMAKER OR DEFIBRILLATOR? NO . RESPIRATORY: HAVE YOU BEEN SICK IN THE PAST WEEK? NO . FEVER NO . FLU LIKE SYMPTOMS? NO . COUGH NO . INTEGUMENTARY: DO YOU HAVE ANY RASHES OR OPEN SORES? NO . ALLERGIC/IMMUNO: ARE YOU ALLERGIC TO SHELLFISH OR IV DYE? NO . ANY NEW ALLERGIES? NO . PSYCHIATRIC: DO YOU HAVE THOUGHTS OF HURTING YOURSELF OR SOMEONE ELSE? NO . ARE YOU ABUSED, NEGLECTED, OR IN AN UNSAFE ENVIRONMENT? NO . ENDOCRINOLOGY: ARE YOU DIABETIC? NO . OTHER: DO YOU NEED ANY PRESCRIPTIONS? NO . IF YES, PLEASE LIST: ____ . ANY NEW PROBLEMS WITH YOUR MEDICATIONS? NO . WHEN DID YOU LAST EAT? ____ . WHEN DID YOU LAST DRINK? ____ . WHAT DID YOU LAST DRINK? ____ . NAME OF PERSON DRIVING YOU HOME? ____ . DO YOU HAVE ANY OTHER QUESTIONS OR CONCERNS NO . REVIEWED BY: PROVIDER: SAWYER BARAJAS . VITAL SIGNS WT 105.0 LBS, HT 64 IN, BMI 18.02 INDEX, BP 117/72 MM HG, HR 82 /MIN, RR 16 /MIN, TEMP 98.8 F, OXYGEN SAT % 99%, NA INITIALS TL 1057, REVIEWED BY: NL. EXAMINATION GENERAL EXAMINATION: HEENT:HEAD:, NORMOCEPHALIC, EYES:, EYES NORMAL, NOSE:, NOSE CLEAR, THROAT: NORMAL. LUNGS:LUNG SOUNDS ARE CLEAR. HEART:HEART RATE REGULAR. ABDOMEN:SOFT AND NOT TENDER, NON-DISTENDED. MUSCULOSKELETAL:*. LUMBAR SACRAL SPINEMUSCLE STRENGTH TESTING 5/5 BILATERAL, PALPATION: NEGATIVE FOR PAIN OVER L/S SPINE. TENDERNESS NOTED OVER LEFT LUMBAR PARASPINAL.. THORACIC SPINENEGATIVE FOR PAIN WITH PALPATION OF THORACIC SPINE. NEGATIVE FOR PAIN WITH PALPATION OF THORACIC PARASPINAL. CERVICALNEGATIVE FOR PAIN WITH PALPATION OF CERVICAL SPINE. NEGATIVE FOR PAIN WITH PALPATION OF CERVICAL PARASPINALS. NEGATIVE FOR PAIN WITH PALPATION OF TRAPEZIUS BILAT. SKIN:PINKISH RED LACE LIKE DISCOLORATION OVER LOW BACK.PATIENT STATES IT IS FROM HEATING PAD.. NEUROLOGIC EXAM:ALERT AND ORIENTED X 3, DTRS 1-2+ IN ALL 4 EXTREMITIES, DENIES UPPER EXTREMETIES SENSORY LOSS, DENIES LOWER EXTREMETIES SENSORY LOSS. DIAGNOSTIC:MRI L/S [id number] DISC BULGE L4-5 AND DIFFUSE DISC BULGE AND RETROLITHESIS AT THE L5-S1 LEVEL.THE DISC BULGE AT L5-S1 ABUTS THE S1 NERVES.NO SIGNIFICANT CHANGE FROM 02-06-08 MRI. NCS LOWER [id number]-[id number],CHRONIC OR OLD LEFT S1 AND POSSIBLY L5 RADICULOPATHY.MILD ,CHRONICOR OLD RIGHT L5 RADICULOPATHY.. 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 PROCEDURE CODES FA211 ESTABILISHED PATIENT [facility] CHARGE G8730 PAIN ASSESS POS TOOL F/U PLAN DOC G8427 DOC MEDS VERIFIED W/PT OR RE DISPOSITION & COMMUNICATION FOLLOW UP 2 WEEKS POST (REASON: I AM GOING TO REQUESTST A CAUDAL EPIDURAL STEROID INJECTION UNDER FLUOROSCOPIC GUIDANCE) ELECTRONICALLY SIGNED BY KARL MONCADA ON 09/28/2016 AT 02:41 PM EDT DISCLAIMER : THIS IS A VISIT SUMMARY EXTRACTED FROM THE [employer] CHART. IT IS NOT A COPY OF THE [employer] PROGRESS NOTE. TIMOTHY
== END ==
LOC: M PAIN 11:00
PROVIDERS: ATTEND Nurse Practitioner Family
DX: G89.29 Other chronic pain (principal); M51.17 Intervertebral disc disorders with radiculopathy, lumbosacral region; M51.24 Other intervertebral disc displacement, thoracic region; F17.200 Nicotine dependence, unspecified, uncomplicated; Z88.6 Allergy status to analgesic agent; Z88.8 Allergy status to other drugs, medicaments and biological substances; Z79.891 Long term (current) use of opiate analgesic; Z79.899 Other long term (current) drug therapy

== ENCOUNTER → 2016-09-28 | Outpatient (CLI) | payer MEDICARE, MEDICAID ==
--- NOTE | 2016-09-28 17:54 | REP ---
FLUOROSCOPIC GUIDED SPINAL INJECTION: The films were reviewed with Dr. Branch. The patient has a history of low back pain. The portable C-ARM was provided in the OR by Dr. Talbot for fluoroscopic guidance. 3 intraoperative fluoroscopic spot films were obtained for needle placement verification for caudal epidural injection. The films are on the PACS system and are available for review. 9 seconds of fluoroscopic time was utilized for this procedure. Reviewed by BALJIT Brown 09/29/2016 12:38 PEdited and Signed by Nate Branch MD 09/29/2016 07:22 P
--- NOTE | 2016-10-02 23:34 | ECWPNPC ---
PATIENT NAME: SAEED MCLEOD : 1975 GENDER: FEMALE VISIT DATE: 09/28/2016 DISCHARGE DATE: 09/28/16 1534 VISIT LOCKED DATE TIME: PHYSICIAN: TYLER LONGO RESOURCE: TYLER LONGO REASON FOR APPOINTMENT 1. CESB HISTORY OF PRESENT ILLNESS HISTORY OF PRESENT ILLNESS: PAIN THE PATIENT DESCRIBES THE PAIN... FALL RISK SCREENING: SCREENING :NO FALLS IN THE PAST YEAR CURRENT MEDICATIONS TAKING OMEPRAZOLE 40 MG CAPSULE DELAYED RELEASE 1 CAPSULE ORALLY ONCE A DAY, NOTES: NONE RECENT TAKING MULTI VITAMIN DAILY - TABLET 1 TABLET ORALLY ONCE A DAY, NOTES: 09-28-16 0700 TAKING MORPHINE SULFATE ER 30 MG TABLET EXTENDED RELEASE 1 TABLET ORALLY EVERY 12 HRS MDD2, NOTES: 09-28-16 0800 TAKING MORPHINE SULFATE 15 MG TABLET 1/2 TABLET ORALLY BID PRN MDD2, NOTES: 09-27-16 2100 TAKING NAPROXEN 500 MG TABLET 1 TABLET NEEDED ORALLY EVERY 12 HRS, NOTES: 09-28-16 0800 DISCONTINUED LYRICA 50 MG CAPSULE 1 CAPSULE ORALLY BID DISCONTINUED BACTRIM 400-80 MG TABLET 2 TABLETS ORALLY ONCE A DAY MEDICATION LIST REVIEWED AND RECONCILED WITH THE PATIENT PAST MEDICAL HISTORY CHRONIC BACK PAIN EMG SHOWS MILD, CHRONIC L S1 AND POSSIBLY L5 RADICULOPATHY; MILD CHRONIC R L5 RADICULOPATHY (08/2015) ALLERGIES ASPIRIN: SWELLING : ALLERGY GABAPENTIN: "FELT YUCKY": SIDE EFFECTS LYRICA: FELT YUCKY": SIDE EFFECTS REVIEW OF SYSTEMS CONSTITUTIONAL: ANY CHANGE IN YOUR MEDICAL CONDITION? NO . CHILLS NO . FEVER NO . INFECTION: DO YOU HAVE NEW INFECTIONS? NO . DO YOU HAVE HISTORY OF MRSA? NO . MUSCULOSKELETAL: ANY NEW PATTERNS OF PAIN OR NUMBNESS? NO . GASTROENTEROLOGY: ANY NEW CHANGE IN BOWEL CONTROL? NO . GENITOURINARY: ANY NEW CHANGE IN BLADDER CONTROL? NO . IS THERE A CHANCE YOU COULD BE ? NO . HEMATOLOGY/LYMPH: DO YOU TAKE ANY BLOOD THINNERS? (FOR EXAMPLE- COUMADIN, PLAVIX, AGGRENOX, PLATEL, PRADAXA, OR XARELTO) NO . WHEN WAS YOUR LAST DOSE? DATE: TIME: . NEUROLOGY: HAVE YOU FALLEN IN THE PAST 6 MONTHS? NO . ANY NEW EXTREMITY NUMBNESS OR WEAKNESS? NO . CARDIOLOGY: DO YOU HAVE A PACEMAKER OR DEFIBRILLATOR? NO . RESPIRATORY: HAVE YOU BEEN SICK IN THE PAST WEEK? NO . FEVER NO . FLU LIKE SYMPTOMS? NO . COUGH NO . INTEGUMENTARY: DO YOU HAVE ANY RASHES OR OPEN SORES? NO . ALLERGIC/IMMUNO: ARE YOU ALLERGIC TO SHELLFISH OR IV DYE? NO . ANY NEW ALLERGIES? NO . PSYCHIATRIC: DO YOU HAVE THOUGHTS OF HURTING YOURSELF OR SOMEONE ELSE? NO . ARE YOU ABUSED, NEGLECTED, OR IN AN UNSAFE ENVIRONMENT? NO . ENDOCRINOLOGY: ARE YOU DIABETIC? NO . OTHER: DO YOU NEED ANY PRESCRIPTIONS? NO . IF YES, PLEASE LIST: ____ . ANY NEW PROBLEMS WITH YOUR MEDICATIONS? NO . WHEN DID YOU LAST EAT? 09-27-16 PM . WHEN DID YOU LAST DRINK? 09-28-16 0800 . WHAT DID YOU LAST DRINK? WATER . NAME OF PERSON DRIVING YOU HOME? DANIELITO JONESCHRISTIANSEN . DO YOU HAVE ANY OTHER QUESTIONS OR CONCERNS NO . REVIEWED BY: PROVIDER: . VITAL SIGNS WT 108.0 LBS, HT 64 IN, BMI 18.54 INDEX, BP 102/64 MM HG, HR 85 /MIN, RR 16 /MIN, TEMP 99.7 F, OXYGEN SAT % 97%, NA INITIALS TL 1101, REVIEWED BY: CM. ASSESSMENTS INTERVERTEBRAL DISC DISORDERS WITH RADICULOPATHY, LUMBOSACRAL REGION - M51.17 (PRIMARY) PROCEDURES PN CAUDAL EPIDURALS PRE PROCEDURE DIAGNOSIS LUMBAR POST LAMINECTOMY PAIN SYNDROME POST PROCEDURE DIAGNOSIS LUMBAR POST LAMINECTOMY PAIN SYNDROME PROCEDURE CAUDAL EPIDURAL STEROID INJECTION UNDER FLUOROSCOPIC GUIDANCE SURGEON DR. TYLER LOGNO DIRECTOR DATA ANALYTICS NONE ANESTHESIA LOCAL PRE PROCEDURE NOTE THE PATIENT HAS HISTORY OF CHRONIC LOW BACK PAIN. I EVALUATE THE PATIENT AND REVIEWED THE CHART. I WENT OVER THE RISKS, ALTERNATIVES, AND BENEFITS ASSOCIATED WITH THIS PROCEDURE. THE PATIENT WOULD LIKE TO PROCEED AND GIVE CONSENT TO PERFORMED THE PROCEDURE. THE PATIENT DENIES UNEXPLAINABLE WEIGHT LOSS, FEVER, CHILLS, OR NEW CHANGES IN URINARY OR BOWEL CONTROL DESCRIPTION OF PROCEDURE THE PATIENT WAS BROUGHT TO THE PROCEDURE ROOM AND PLACED IN THE PRONE POSITION. THE LUMBOSACRAL AREA WAS CLEANED WITH BETADINE SOLUTION AND DRAPED ASEPTICALLY. THE PROCEDURE WAS DONE UNDER STERILE CONDITIONS. I CHECKED LATERALITY AND THE LEVEL WHERE THE PROCEDURE WAS GOING TO BE PERFORMED WITH THE PATIENT AND THE SUPPORTING STAFF AT THE MOMENT OF THE TIME OUT IN THE PROCEDURE ROOM. UNDER FLUOROSCOPIC GUIDANCE, THE TARGET POINT WAS SELECTED AT THE EPIDURAL SPACE BELOW THE SACROCOCCYGEAL LIGAMENT. LIDOCAINE 0.5% WAS USE TO NUMB THE SKIN AND THE SUBCUTANEOUS TISSUE BELOW IT. AN EPIDURAL TUOHY NEEDLE, 17-GAUGE, WAS ADVANCED UNDER FLUOROSCOPIC GUIDANCE AND FOLLOWING PATIENT FEEDBACK UNTIL THE EPIDURAL SPACE WAS REACHED 6 CM DEEP INTO THE SKIN BY THE LOSS OF RESISTANCE TECHNIQUE. ISOVUE M DYE 30%, 0.25 ML, WAS INJECTED SHOWING ADEQUATE SPREAD OF THE DYE. THEN, A SOLUTION OF 6 ML OF NORMAL SALINE WITH DEPO-MEDROL 60 MG WAS INJECTED SLOWLY FOLLOWING THE PATIENT FEEDBACK. THERE WAS NO EVIDENCE OF BLOOD, PARESTHESIA OR CEREBROSPINAL FLUID DURING THE PROCEDURE. THE PATIENT WAS SENT TO THE RECOVERY ROOM. THE PATIENT WAS MOVING THE EXTREMITIES AND DOING WELL. THERE WAS NO COMPLICATION DURING THE PROCEDURE. FLUOROSCOPY TIME WAS 9 SECONDS POST PROCEDURE NOTE THE PATIENT WILL BE SEEN IN A FOLLOW UP IN THE NEXT FEW WEEKS. INSTRUCTIONS WERE GIVEN, QUESTIONS WERE ANSWERED, AND THE PATIENT EXPRESSED UNDERSTANDING AND AGREES WITH THE PLAN. I, EVELIA HERNANDEZ, DOCUMENTED THE ABOVE INFORMATION ACTING A SCRIBE FOR DR. LONGO. I HAVE REVIEWED THE ABOVE DOCUMENT, WRITTEN BY EVELIA YOU AND I VERIFY THAT IT IS ACCURATE DIAGNOSTIC IMAGING [facility] FLUORO GUIDE SPINE INJECTION (PAIN)[id number] PROCEDURE CODES 24034 LUMBAR/SACRAL W/ IMAGING 6045F RADXPS IN END [id number] PXD DISPOSITION & COMMUNICATION FOLLOW UP 3 WEEKS ELECTRONICALLY SIGNED BY TYLER LONGO MD ON 10/02/2016 AT 05:28 PM EDT DISCLAIMER : THIS IS A VISIT SUMMARY EXTRACTED FROM THE [employer] CHART. IT IS NOT A COPY OF THE [employer] PROGRESS NOTE. MTDD
== END ==
LOC: M PAIN 11:00
PROVIDERS: ATTEND Anesthesiology
DX: G89.29 Other chronic pain (principal); M51.17 Intervertebral disc disorders with radiculopathy, lumbosacral region; F17.200 Nicotine dependence, unspecified, uncomplicated; Z88.6 Allergy status to analgesic agent; Z88.8 Allergy status to other drugs, medicaments and biological substances; Z79.891 Long term (current) use of opiate analgesic; Z79.899 Other long term (current) drug therapy
CPT/HCPCS: 62323; J1030; Q9967

== ENCOUNTER → 2016-10-10 | Outpatient (CLI) | payer MEDICARE, MEDICAID ==
--- NOTE | 2016-10-11 01:20 | ECWPNPC ---
PATIENT NAME: SAEED MCLEOD : 1975 GENDER: FEMALE VISIT DATE: 10/10/2016 DISCHARGE DATE: 10/10/16 1141 VISIT LOCKED DATE TIME: PHYSICIAN: SAWYER CASE RESOURCE: SAWYER CASE REASON FOR APPOINTMENT 1. POST CAUDAL EPIDURAL HISTORY OF PRESENT ILLNESS GENERAL: HERE FOR POST PROCEDURE F/U.HAD CAUDAL EPIDURAL STEROID INJECTION ON 09-28-16.REPORTS TWO DAYS OF >50% IMPROVEMENT ON DAY 5 AND 9.INITIAL AGREVATION IN PAIN.HAVING A BAD TIME TODAY.RATING PAIN VAS 7/10.APPEARS UNCOMFORTABLE.DESCRIBES PAIN BURNING AND SHARP.PAIN IS MOST INTENSE OVER LEFT SIJ REGION.DISCUSSED TREATMENT OPTIONS.CONTINUES ON MS 30MG BID AND MSIR 15MG 1/2 OR 1 TSBLET PRN FOR SEVERE PAIN.VOICES A DESIRE TO REDUCE NARCOTICS BUT TODAY IS IN SEVERE PAIN.WE ARE IN PROCESS OF HAVING EVALUATION FOR DCS.DISCUSSED TREATMENT OPTIONS TO INCLUDE RIGHT TRANSFORAMINAL AND RIGHT SIJ. CURRENT MEDICATIONS TAKING OMEPRAZOLE 40 MG CAPSULE DELAYED RELEASE 1 CAPSULE ORALLY ONCE A DAY TAKING MULTI VITAMIN DAILY - TABLET 1 TABLET ORALLY ONCE A DAY TAKING MORPHINE SULFATE ER 30 MG TABLET EXTENDED RELEASE 1 TABLET ORALLY EVERY 12 HRS MDD2 TAKING MORPHINE SULFATE 15 MG TABLET 1/2 TABLET ORALLY BID PRN MDD2 TAKING NAPROXEN 500 MG TABLET 1 TABLET NEEDED ORALLY EVERY 12 HRS MEDICATION LIST REVIEWED AND RECONCILED WITH THE PATIENT PAST MEDICAL HISTORY CHRONIC BACK PAIN EMG SHOWS MILD, CHRONIC L S1 AND POSSIBLY L5 RADICULOPATHY; MILD CHRONIC R L5 RADICULOPATHY (08/2015) ALLERGIES ASPIRIN: SWELLING : ALLERGY GABAPENTIN: "FELT YUCKY": SIDE EFFECTS LYRICA: FELT YUCKY": SIDE EFFECTS SOCIAL HISTORY GENERAL: TOBACCO USE ARE YOU A:CURRENT SMOKER HOW MANY CIGARETTES A DAY DO YOU SMOKE?5 OR LESS HOW SOON AFTER YOU WAKE UP DO YOU SMOKE YOUR FIRST CIGARETTE?AFTER 60 MIN HOW OFTEN DO YOU SMOKE CIGARETTES?EVERY DAY PATIENT COUNSELED ON THE DANGERS OF TOBACCO USE AND URGED TO QUIT:10/10/2016 ARE YOU INTERESTED IN QUITTING?THINKING ABOUT QUITTING PREVIOUS QUIT ATTEMPTS?YES, MORE THAN 6 MONTHS AGO. COUNSELED THE PATIENT ON SMOKING CESSATION, EDUCATION [id number] LEARNING BARRIERS / SPECIAL NEEDS ORIENTED TO PLAN OF CARE: PATIENT, PAIN MANAGEMENT PATIENT, ORIENTED TO PLAN OF CARE: PATIENT, PAIN MANAGEMENT PATIENT. NEW PATIENT PAIN DIARY TODAY'S VISITNOTES FROM 0-10, WHAT LEVEL IS YOUR PAIN TODAY?0 PAIN CLINIC PFS, CLERGY, PUBLIC HEALTH REFERRALS PFS REFERRAL NEEDED?NO CLERGY REFERRAL NEEDED?NO PUBLIC HEALTH REFERRAL NEEDED?NO WAS THE PROVIDER NOTIFIED OF ANY PERTINENT INFO?NO PFS REFERRAL NEEDED?NO CLERGY REFERRAL NEEDED?NO PUBLIC HEALTH REFERRAL NEEDED?NO WAS THE PROVIDER NOTIFIED OF ANY PERTINENT INFO?NO VITAL SIGNS WT 106.4 LBS, HT 64 IN, BMI 18.26 INDEX, BP 116/71 MM HG, HR 79 /MIN, RR 16 /MIN, TEMP 99.5 F, OXYGEN SAT % 100%, NA INITIALS SC 11:00, REVIEWED BY: AD. EXAMINATION GENERAL EXAMINATION: GENERAL APPEARANCE:UNCOMFORTABLE. PSYCHAFFECT NORMAL, ALERT . LUNGS:LUNG KAMARA ARE CLEAR TO AUSCULTATION BILATERALLY. GOOD MOVEMENT OF AIR. HEART:S1, S2 IN A REGULAR RATE AND RHYTHM. NO SIGNIFICANT MURMURS, RUBS OR GALLOPS NOTED. BACK:WELL HEALED SURGICAL SCAR L/S AXIS.SPECIFIC POINT TENDERNESS OVER LEFT SIJ., PERILUMBAR TENDERNESS. 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 BRINGS IN MEDICATIONS WHICH IS APPROPRIATE FOR WHAT WAS DISPENSED. RECENT URINE TOXICOLOGY REVIEWED. NO UNAUTHORIZED MEDICATIONS. NO ILLICIT SUBSTANCES AND PRESCRIBED MEDICATIONS WERE PRESENT. PROCEDURE CODES [id number] ESTABILISHED PATIENT [facility] FACILITY CHARGE [id number] PAIN ASSESS POS TOOL F/U PLAN DOC G8427 DOC MEDS VERIFIED W/PT OR RE DISPOSITION & COMMUNICATION FOLLOW UP 2WK POST (REASON: LEFT SIJ) ELECTRONICALLY SIGNED BY KARL MONCADA ON 10/10/2016 AT 02:19 PM EDT DISCLAIMER : THIS IS A VISIT SUMMARY EXTRACTED FROM THE [employer] CHART. IT IS NOT A COPY OF THE [employer] PROGRESS NOTE. TIMOTHY
== END ==
LOC: M PAIN 11:00
PROVIDERS: ATTEND Nurse Practitioner Family
DX: G89.29 Other chronic pain (principal); M51.17 Intervertebral disc disorders with radiculopathy, lumbosacral region; M51.24 Other intervertebral disc displacement, thoracic region; F17.210 Nicotine dependence, cigarettes, uncomplicated; Z88.6 Allergy status to analgesic agent; Z88.8 Allergy status to other drugs, medicaments and biological substances; Z79.891 Long term (current) use of opiate analgesic; Z79.899 Other long term (current) drug therapy

== ENCOUNTER → 2016-11-02 | Outpatient (CLI) | payer MEDICARE, MEDICAID ==
[~2016-11-02] MED LIST changes: +BUPIVACAINE HCL 0.25% 30 ML VIAL As Ordered ONE; +CLOT10TR; +MORP-38 PO; +MORP15TA2 PO; +NAPR500T3 PO; +TRIAMCINOLONE ACETONIDE SUSP 40 MG/ML VIAL (J3301) As Ordered ONE; -methylPREDNISolone SUSP 40 MG/ML (DEPO-medrol) VIAL (J1030) As Ordered ONE
--- NOTE | 2016-11-02 15:59 | REP ---
Partial SI joint series: Four views: History: Left-sided SI joint injection for pain. 13 seconds of fluoroscopy time is reported. Findings: A sequence of four fluoroscopically obtained last image hold spot radiographs of the left SI joint document the various needle positions and contrast injection associated with injection procedure. Signed by Tang Norwood MD 11/02/2016 05:04 P
--- NOTE | 2016-11-13 23:54 | ECWPNPC ---
PATIENT NAME: SAEED MCLEOD : 1975 GENDER: FEMALE VISIT DATE: 11/02/2016 DISCHARGE DATE: 11/02/16 1205 VISIT LOCKED DATE TIME: PHYSICIAN: TYLER LONGO RESOURCE: TYLER LONGO REASON FOR APPOINTMENT 1. L SIJ HISTORY OF PRESENT ILLNESS HISTORY OF PRESENT ILLNESS: PAIN THE PATIENT DESCRIBES THE PAIN... FALL RISK SCREENING: SCREENING :NO FALLS IN THE PAST YEAR CURRENT MEDICATIONS TAKING OMEPRAZOLE 40 MG CAPSULE DELAYED RELEASE 1 CAPSULE ORALLY ONCE A DAY, NOTES: 10-14-16 TAKING MULTI VITAMIN DAILY - TABLET 1 TABLET ORALLY ONCE A DAY, NOTES: 11-01-16 0900 TAKING NAPROXEN 500 MG TABLET 1 TABLET NEEDED ORALLY EVERY 12 HRS, NOTES: 11-02-16 0600 TAKING MORPHINE SULFATE ER 30 MG TABLET EXTENDED RELEASE 1 TABLET ORALLY EVERY 12 HRS MDD2, NOTES: 11-02-16 0600 TAKING MORPHINE SULFATE 15 MG TABLET 1/2 TABLET ORALLY BID PRN MDD2, NOTES: 11-01-16 1400 MEDICATION LIST REVIEWED AND RECONCILED WITH THE PATIENT PAST MEDICAL HISTORY CHRONIC BACK PAIN EMG SHOWS MILD, CHRONIC L S1 AND POSSIBLY L5 RADICULOPATHY; MILD CHRONIC R L5 RADICULOPATHY (08/2015) ALLERGIES ASPIRIN: SWELLING : ALLERGY GABAPENTIN: "FELT YUCKY": SIDE EFFECTS LYRICA: FELT YUCKY": SIDE EFFECTS SOCIAL HISTORY GENERAL: TOBACCO USE ARE YOU A:CURRENT SMOKER HOW MANY CIGARETTES A DAY DO YOU SMOKE?5 OR LESS HOW SOON AFTER YOU WAKE UP DO YOU SMOKE YOUR FIRST CIGARETTE?AFTER 60 MIN HOW OFTEN DO YOU SMOKE CIGARETTES?EVERY DAY PATIENT COUNSELED ON THE DANGERS OF TOBACCO USE AND URGED TO QUIT:10/10/2016 ARE YOU INTERESTED IN QUITTING?THINKING ABOUT QUITTING PREVIOUS QUIT ATTEMPTS?YES, MORE THAN 6 MONTHS AGO. COUNSELED THE PATIENT ON SMOKING CESSATION, EDUCATION [id number]/12/2017 SMOKING CESSATION INFORMATION GIVEN11/02/2016 LEARNING BARRIERS / SPECIAL NEEDS BARRIERS TO LEARNING?NO HEARING IMPAIRED?NO VISION IMPAIRED?NO COGNITIVELY IMPAIRED?NO READINESS TO LEARN?YES LEARNING PREFERENCES?NO LEARNING CAPABILITIES PRESENT?YES EMOTIONAL BARRIERS?NO SPECIAL DEVICES?NO OPTICAL FABRICATION TECHNICIAN NEEDED?NO NEW PATIENT PAIN DIARY TODAY'S VISIT NOTES, FROM 0-10, WHAT LEVEL IS YOUR PAIN TODAY? 0. PAIN CLINIC PFS, CLERGY, PUBLIC HEALTH REFERRALS PFS REFERRAL NEEDED? NO, CLERGY REFERRAL NEEDED? NO, PUBLIC HEALTH REFERRAL NEEDED? NO, WAS THE PROVIDER NOTIFIED OF ANY PERTINENT INFO? NO, PFS REFERRAL NEEDED? NO, CLERGY REFERRAL NEEDED? NO, PUBLIC HEALTH REFERRAL NEEDED? NO, WAS THE PROVIDER NOTIFIED OF ANY PERTINENT INFO? NO. REVIEW OF SYSTEMS REVIEWED BY: PROVIDER: . CONSTITUTIONAL: ANY CHANGE IN YOUR MEDICAL CONDITION? NO . CHILLS NO . FEVER NO . INFECTION: DO YOU HAVE NEW INFECTIONS? NO . DO YOU HAVE HISTORY OF MRSA? NO . MUSCULOSKELETAL: ANY NEW PATTERNS OF PAIN OR NUMBNESS? NO . GASTROENTEROLOGY: ANY NEW CHANGE IN BOWEL CONTROL? NO . GENITOURINARY: ANY NEW CHANGE IN BLADDER CONTROL? NO . IS THERE A CHANCE YOU COULD BE ? NO . HEMATOLOGY/LYMPH: DO YOU TAKE ANY BLOOD THINNERS? (FOR EXAMPLE- COUMADIN, PLAVIX, AGGRENOX, PLATEL, PRADAXA, OR XARELTO) NO . WHEN WAS YOUR LAST DOSE? DATE: TIME: . NEUROLOGY: HAVE YOU FALLEN IN THE PAST 6 MONTHS? NO . ANY NEW EXTREMITY NUMBNESS OR WEAKNESS? NO . CARDIOLOGY: DO YOU HAVE A PACEMAKER OR DEFIBRILLATOR? NO . RESPIRATORY: HAVE YOU BEEN SICK IN THE PAST WEEK? NO . FEVER NO . FLU LIKE SYMPTOMS? NO . COUGH NO . INTEGUMENTARY: DO YOU HAVE ANY RASHES OR OPEN SORES? NO . ALLERGIC/IMMUNO: ARE YOU ALLERGIC TO SHELLFISH OR IV DYE? NO . ANY NEW ALLERGIES? NO . PSYCHIATRIC: DO YOU HAVE THOUGHTS OF HURTING YOURSELF OR SOMEONE ELSE? NO . ARE YOU ABUSED, NEGLECTED, OR IN AN UNSAFE ENVIRONMENT? NO . ENDOCRINOLOGY: ARE YOU DIABETIC? NO . OTHER: DO YOU NEED ANY PRESCRIPTIONS? NO . IF YES, PLEASE LIST: ____ . ANY NEW PROBLEMS WITH YOUR MEDICATIONS? NO . WHEN DID YOU LAST EAT? ____LOAST NIGHT . WHEN DID YOU LAST DRINK? ____THIS MORNING 0600 . WHAT DID YOU LAST DRINK? ____WATER . NAME OF PERSON DRIVING YOU HOME? ____LIZA - FRIEND . DO YOU HAVE ANY OTHER QUESTIONS OR CONCERNS NO . VITAL SIGNS WT 105 LBS, HT 64 IN, BMI 18.02 INDEX, BP 138/52 MM HG, HR 62 /MIN, RR 16 /MIN, TEMP 99.5 F, OXYGEN SAT % 98, SAFE IN ENV? (Y/N) YES, REVIEWED BY: KG. ASSESSMENTS SACROILIITIS, NOT ELSEWHERE CLASSIFIED - M46.1 (PRIMARY) PROCEDURES PN SI PRE PROCEDURE DIAGNOSIS SACROILIITIS, SACROILIAC JOINT DYSFUNCTION POST PROCEDURE DIAGNOSIS SACROILIITIS, SACROILIAC JOINT DYSFUNCTION PROCEDURE LEFT SACROILIAC JOINT BLOCK SURGEON DR. TYLER LONGO GREASE MAN NONE ANESTHESIA LOCAL PRE PROCEDURE NOTE PATIENT WITH HISTORY OF CHRONIC LOW BACK PAIN. I EVALUATED THE PATIENT AND REVIEWED THE CHART. I WENT OVER THE RISKS, ALTERNATIVES, AND BENEFITS ASSOCIATED WITH THIS PROCEDURE. THE PATIENT WOULD LIKE TO PROCEED AND GAVE CONSENT TO PERFORM THE PROCEDURE. THE PATIENT DENIES UNEXPLAINABLE WEIGHT LOSS, FEVER, CHILLS, OR NEW CHANGES IN URINARY OR BOWEL CONTROL DESCRIPTION OF PROCEDURE THE PATIENT WAS BROUGHT TO THE PROCEDURE ROOM AND PLACED IN THE PRONE POSITION. THE LUMBOSACRAL AREA WAS CLEANED WITH CHLORAPREP SOLUTION AND DRAPED ASEPTICALLY. THE PROCEDURE WAS DONE UNDER STERILE CONDITIONS. I CHECKED LATERALITY AND THE LEVEL WHERE THE PROCEDURE WAS GOING TO BE PERFORMED WITH THE PATIENT AND THE SUPPORTING STAFF AT THE MOMENT OF THE TIME OUT IN THE PROCEDURE ROOM. UNDER FLUOROSCOPIC GUIDANCE, TARGET POINT WAS SELECTED AT THE LOWER BORDER OF THE LEFT SACROILIAC JOINT. TARGET POINT WAS SELECTED AFTER MEDIAL ROTATION AND TILT OF THE MAGNIFIER OF THE C-ARM. LIDOCAINE WAS USED TO NUMB THE SKIN AND SUBCUTANEOUS TISSUE BELOW IT. A SPINAL NEEDLE, 22-GAUGE, WAS ADVANCED UNDER FLUOROSCOPIC GUIDANCE AND FOLLOWING PATIENT FEEDBACK UNTIL THE TARGET AREA WAS TOUCHED. THE POSITION OF THE NEEDLE WAS VERIFIED WITH AP AND LATERAL VIEWS. AFTER PROPER POSITION OF THE NEEDLE WAS ACHIEVED, ISOVUE M DYE 30%, 0.25 ML, WAS INJECTED SHOWING SPREAD OF THE DYE. THEN, A SOLUTION OF 20 MG OF KENALOG WAS INJECTED IN RIGHT JOINT WITH 3 ML OF BUPIVACAINE 0.125%. THERE WAS NO EVIDENCE OF BLOOD, PARESTHESIA OR CEREBROSPINAL FLUID DURING THE PROCEDURE. THE PATIENT WAS SENT TO THE RECOVERY ROOM. THE PATIENT WAS MOVING THE EXTREMITIES AND DOING WELL. THERE WAS NO COMPLICATION DURING THE PROCEDURE. FLUOROSCOPY TIME WAS 13 SECONDS POST PROCEDURE NOTE THE PATIENT WILL BE SEEN IN A FOLLOW UP IN THE NEXT FEW WEEKS. INSTRUCTIONS WERE GIVEN, QUESTIONS WERE ANSWERED, AND THE PATIENT EXPRESSED UNDERSTANDING AND AGREED WITH THE PLAN. IEVELIA, DOCUMENTED THE ABOVE INFORMATION ACTING A SCRIBE FOR DR. LONGO. IDR. LONGO, HAVE REVIEWED THE ABOVE DOCUMENT, SCRIBED BY EVELIA HERNANDEZ, AND I VERIFY THAT IT IS ACCURATE DIAGNOSTIC IMAGING [facility] FLUORO GUIDANCE (PAIN)[id number] PROCEDURE CODES 29750 INJECT SACROILIAC JOINT 6045F RADXPS IN END [id number] PXD DISPOSITION & COMMUNICATION FOLLOW UP 3 WEEKS ELECTRONICALLY SIGNED BY TYLER LONGO MD ON 11/13/2016 AT 10:19 PM EDT DISCLAIMER : THIS IS A VISIT SUMMARY EXTRACTED FROM THE [employer] CHART. IT IS NOT A COPY OF THE [employer] PROGRESS NOTE. MTDD
== END ==
LOC: M PAIN 11:00
PROVIDERS: ATTEND Anesthesiology
DX: G89.29 Other chronic pain (principal); M46.1 Sacroiliitis, not elsewhere classified; M53.88 Other specified dorsopathies, sacral and sacrococcygeal region; F17.210 Nicotine dependence, cigarettes, uncomplicated; Z88.6 Allergy status to analgesic agent; Z88.8 Allergy status to other drugs, medicaments and biological substances; Z79.891 Long term (current) use of opiate analgesic; Z79.899 Other long term (current) drug therapy
CPT/HCPCS: G0260; J3301; Q9967

== ENCOUNTER → 2016-11-06 | Outpatient (REF) | payer MEDICARE, MEDICAID ==
[~2016-11-06] MED LIST changes: -BUPIVACAINE HCL 0.25% 30 ML VIAL As Ordered ONE; -ISOVUE-M 300 61% 15ML VIAL (Q9967) As Ordered ONE; -LIDOCAINE 1% SDV INJ 30 ML VIAL As Ordered ONE; -TRIAMCINOLONE ACETONIDE SUSP 40 MG/ML VIAL (J3301) As Ordered ONE
== END ==
LOC: M LAB REF 09:51
PROVIDERS: ATTEND Physician Assistant
DX: R30.0 Dysuria (principal)

== ENCOUNTER → 2016-11-14 | Outpatient (REF) | payer MEDICARE, MEDICAID | LOC: M LAB REF 17:04 | PROVIDERS: ATTEND Physician Assistant | DX: R30.0 Dysuria (principal) ==

== ENCOUNTER → 2016-11-24 | Outpatient (CLI) | payer MEDICARE, MEDICAID ==
--- NOTE | 2016-12-13 00:41 | ECWPNPC ---
PATIENT NAME: SAEED MCLEOD : 1975 GENDER: FEMALE VISIT DATE: 11/24/2016 DISCHARGE DATE: 11/24/16 1219 VISIT LOCKED DATE TIME: PHYSICIAN: SAWYER CASE RESOURCE: SAWYER CASE REASON FOR APPOINTMENT 1. POST SIJ HISTORY OF PRESENT ILLNESS HISTORY OF PRESENT ILLNESS: PAIN THE PATIENT DESCRIBES THE PAIN... FALL RISK SCREENING: SCREENING :NO FALLS IN THE PAST YEAR GENERAL: HERE FOR POST PROCEDURE F/U.HAD LEFT SIJ INJECTION ON 11-02--.REPORTS TWO WEEKS OF >50% IMPROVEMENT ON DAY 5 AND 9.IRATING PAIN VAS 4/10.APPEARS UNCOMFORTABLE.DESCRIBES PAIN TENDERNESS.OVERALL IS DOING BETTER SINCE COMING HERE AFTER INJECTIONS.DISCUSSED TREATMENT OPTIONS.CONTINUES ON MS 30MG BID AND MSIR 15MG 1/2 OR 1 TSBLET PRN FOR SEVERE PAIN.VOICES A DESIRE TO REDUCE NARCOTICS .WE ARE IN PROCESS OF HAVING EVALUATION FOR DCS.DISCUSSED TREATMENT OPTIONS TO INCLUDE RIGHT TRANSFORAMINAL AND RIGHT SIJ. CURRENT MEDICATIONS TAKING OMEPRAZOLE 40 MG CAPSULE DELAYED RELEASE 1 CAPSULE ORALLY ONCE A DAY TAKING MULTI VITAMIN DAILY - TABLET 1 TABLET ORALLY ONCE A DAY TAKING MORPHINE SULFATE 15 MG TABLET 1/2 TABLET ORALLY BID PRN MDD2 TAKING MORPHINE SULFATE ER 30 MG TABLET EXTENDED RELEASE 1 TABLET ORALLY EVERY 12 HRS MDD2 TAKING NAPROXEN 500 MG TABLET 1 TABLET NEEDED ORALLY EVERY 12 HRS MEDICATION LIST REVIEWED AND RECONCILED WITH THE PATIENT PAST MEDICAL HISTORY CHRONIC BACK PAIN EMG SHOWS MILD, CHRONIC L S1 AND POSSIBLY L5 RADICULOPATHY; MILD CHRONIC R L5 RADICULOPATHY (08/2015) ALLERGIES ASPIRIN: SWELLING : ALLERGY GABAPENTIN: "FELT YUCKY": SIDE EFFECTS LYRICA: FELT YUCKY": SIDE EFFECTS SURGICAL HISTORY LAMINECTOMY 1997 [facility] SURGERY AGAIN 1998 REVIEW OF SYSTEMS REVIEWED BY: PROVIDER: SAWYER CASE PATIENT ACCOUNT SPECIALIST . CONSTITUTIONAL: ANY CHANGE IN YOUR MEDICAL CONDITION? NO . CHILLS NO . FEVER NO . INFECTION: DO YOU HAVE NEW INFECTIONS? NO . DO YOU HAVE HISTORY OF MRSA? NO . MUSCULOSKELETAL: ANY NEW PATTERNS OF PAIN OR NUMBNESS? YES, PT STATES SHE HAD LEFT SIJ DONE 11/02/16. PRE PROCEDURE PAIN WAS 4/10, POST PROCEDURE PAIN WAS 8/10, GRADUALLY DROPPING TO 2/10. TODAY PT REPORTS PAIN IS 4-6/10 . GASTROENTEROLOGY: ANY NEW CHANGE IN BOWEL CONTROL? NO . GENITOURINARY: ANY NEW CHANGE IN BLADDER CONTROL? NO . IS THERE A CHANCE YOU COULD BE ? NO . HEMATOLOGY/LYMPH: DO YOU TAKE ANY BLOOD THINNERS? (FOR EXAMPLE- COUMADIN, PLAVIX, AGGRENOX, PLATEL, PRADAXA, OR XARELTO) NO . WHEN WAS YOUR LAST DOSE? DATE: TIME: . NEUROLOGY: HAVE YOU FALLEN IN THE PAST 6 MONTHS? NO . ANY NEW EXTREMITY NUMBNESS OR WEAKNESS? NO . CARDIOLOGY: DO YOU HAVE A PACEMAKER OR DEFIBRILLATOR? NO . RESPIRATORY: HAVE YOU BEEN SICK IN THE PAST WEEK? NO . FEVER NO . FLU LIKE SYMPTOMS? NO . COUGH NO . INTEGUMENTARY: DO YOU HAVE ANY RASHES OR OPEN SORES? NO . ALLERGIC/IMMUNO: ARE YOU ALLERGIC TO SHELLFISH OR IV DYE? NO . ANY NEW ALLERGIES? NO . PSYCHIATRIC: DO YOU HAVE THOUGHTS OF HURTING YOURSELF OR SOMEONE ELSE? NO . ARE YOU ABUSED, NEGLECTED, OR IN AN UNSAFE ENVIRONMENT? NO . ENDOCRINOLOGY: ARE YOU DIABETIC? NO . OTHER: DO YOU NEED ANY PRESCRIPTIONS? NO . IF YES, PLEASE LIST: ____ . ANY NEW PROBLEMS WITH YOUR MEDICATIONS? NO . WHEN DID YOU LAST EAT? ____ . WHEN DID YOU LAST DRINK? ____ . WHAT DID YOU LAST DRINK? ____ . NAME OF PERSON DRIVING YOU HOME? ____ . DO YOU HAVE ANY OTHER QUESTIONS OR CONCERNS NO . VITAL SIGNS WT 108.6 LBS, HT 64 IN, BMI 18.64 INDEX, BP 125/75 MM HG, HR 64 /MIN, RR 16 /MIN, TEMP 98.7 F, OXYGEN SAT % 97%, SAFE IN ENV? (Y/N) Y, NA INITIALS CA 11:31, REVIEWED BY: EM. EXAMINATION GENERAL EXAMINATION: GENERAL APPEARANCE:UNCOMFORTABLE. PSYCHAFFECT NORMAL, ALERT . LUNGS:LUNG KAMARA ARE CLEAR TO AUSCULTATION BILATERALLY. GOOD MOVEMENT OF AIR. HEART:S1, S2 IN A REGULAR RATE AND RHYTHM. NO SIGNIFICANT MURMURS, RUBS OR GALLOPS NOTED. BACK:WELL HEALED SURGICAL SCAR L/S AXIS.POSITIVE L/S AXIAL PAIN, PERILUMBAR TENDERNESS. ASSESSMENTS INTERVERTEBRAL DISC DISORDERS WITH RADICULOPATHY, LUMBOSACRAL REGION - M51.17 (PRIMARY) CHRONIC PRESCRIPTION OPIATE USE - Z79.891 TREATMENT INTERVERTEBRAL DISC DISORDERS WITH RADICULOPATHY, LUMBOSACRAL REGION NOTES: CAUDAL EPIDURAL STEROID INJ. PROCEDURE CODES FA211 ESTABILISHED PATIENT MERGED WITH [facility] CHARGE G8730 PAIN ASSESS POS TOOL F/U PLAN DOC G8427 DOC MEDS VERIFIED W/PT OR RE DISPOSITION & COMMUNICATION FOLLOW UP POST PROC. F/U W M/DCS DISCUSSION (REASON: CAUDAL EPIDURAL STEROID INJ) ELECTRONICALLY SIGNED BY KARL MONCADA ON 12/12/2016 AT 07:49 PM EDT DISCLAIMER : THIS IS A VISIT SUMMARY EXTRACTED FROM THE [employer] CHART. IT IS NOT A COPY OF THE [employer] PROGRESS NOTE. TIMOTHY
== END ==
LOC: M PAIN 14:20
PROVIDERS: ATTEND Nurse Practitioner Family
DX: G89.29 Other chronic pain (principal); M51.17 Intervertebral disc disorders with radiculopathy, lumbosacral region; Z88.6 Allergy status to analgesic agent; Z88.8 Allergy status to other drugs, medicaments and biological substances; Z79.891 Long term (current) use of opiate analgesic; Z79.899 Other long term (current) drug therapy

== ENCOUNTER → 2016-12-07 | Outpatient (CLI) | payer MEDICARE, MEDICAID ==
[~2016-12-07] MED LIST changes: +ISOVUE-M 300 61% 15ML VIAL (Q9967) As Ordered ONE; +LIDOCAINE 1% SDV INJ 30 ML VIAL As Ordered ONE; +methylPREDNISolone SUSP 40 MG/ML (DEPO-medrol) VIAL (J1030) As Ordered ONE
--- NOTE | 2016-12-07 17:24 | REP ---
FLUOROSCOPIC GUIDED SPINAL INJECTION: The films were reviewed with Dr. Branch. The patient has a history of low back pain. The portable C-Arm is provided in the OR for Dr. Talbot for fluoroscopic guidance. Four intraoperative spot films were obtained using last image hold technology for needle placement verification for caudal epidural injection. The films are on the PACs system and are available for review. 8 seconds of fluoroscopy time was utilized for this procedure. Reviewed by BALJIT Brown 12/08/2016 05:31 PEdited and Signed by Nate Branch MD 12/09/2016 04:57 P
--- NOTE | 2016-12-27 01:23 | ECWPNPC ---
PATIENT NAME: SAEED MCLEOD : 1975 GENDER: FEMALE VISIT DATE: 12/07/2016 DISCHARGE DATE: 12/07/16 1440 VISIT LOCKED DATE TIME: PHYSICIAN: TYLER LONGO RESOURCE: TYLER LONGO REASON FOR APPOINTMENT 1. CAUDAL EPIDURAL STEROID INJ HISTORY OF PRESENT ILLNESS HISTORY OF PRESENT ILLNESS: PAIN THE PATIENT DESCRIBES THE PAIN... FALL RISK SCREENING: SCREENING :NO FALLS IN THE PAST YEAR CURRENT MEDICATIONS TAKING OMEPRAZOLE 40 MG CAPSULE DELAYED RELEASE 1 CAPSULE ORALLY ONCE A DAY, NOTES: NONE LATELY TAKING MULTI VITAMIN DAILY - TABLET 1 TABLET ORALLY ONCE A DAY, NOTES: LAST MONTH TAKING MORPHINE SULFATE 15 MG TABLET 1/2 TABLET ORALLY BID PRN MDD2, NOTES: 12/05/16 TAKING MORPHINE SULFATE ER 30 MG TABLET EXTENDED RELEASE 1 TABLET ORALLY EVERY 12 HRS MDD2, NOTES: 12/07/16 0600 TAKING NAPROXEN 500 MG TABLET 1 TABLET NEEDED ORALLY EVERY 12 HRS, NOTES: 12/06/16 1800 MEDICATION LIST REVIEWED AND RECONCILED WITH THE PATIENT PAST MEDICAL HISTORY CHRONIC BACK PAIN EMG SHOWS MILD, CHRONIC L S1 AND POSSIBLY L5 RADICULOPATHY; MILD CHRONIC R L5 RADICULOPATHY (08/2015) ALLERGIES ASPIRIN: SWELLING : ALLERGY GABAPENTIN: "FELT YUCKY": SIDE EFFECTS LYRICA: FELT YUCKY": SIDE EFFECTS SURGICAL HISTORY LAMINECTOMY 1998 BACK SURGERY AGAIN 1998 HOSPITALIZATION/MAJOR DIAGNOSTIC PROCEDURE NO HOSPITALIZATION HISTORY. REVIEW OF SYSTEMS REVIEWED BY: PROVIDER: . CONSTITUTIONAL: ANY CHANGE IN YOUR MEDICAL CONDITION? NO . CHILLS NO . FEVER NO . INFECTION: DO YOU HAVE NEW INFECTIONS? NO . DO YOU HAVE HISTORY OF MRSA? NO . MUSCULOSKELETAL: ANY NEW PATTERNS OF PAIN OR NUMBNESS? NO . GASTROENTEROLOGY: ANY NEW CHANGE IN BOWEL CONTROL? NO . GENITOURINARY: ANY NEW CHANGE IN BLADDER CONTROL? NO . IS THERE A CHANCE YOU COULD BE ? NO . HEMATOLOGY/LYMPH: DO YOU TAKE ANY BLOOD THINNERS? (FOR EXAMPLE- COUMADIN, PLAVIX, AGGRENOX, PLATEL, PRADAXA, OR XARELTO) NO . WHEN WAS YOUR LAST DOSE? DATE: TIME: . NEUROLOGY: HAVE YOU FALLEN IN THE PAST 6 MONTHS? NO . ANY NEW EXTREMITY NUMBNESS OR WEAKNESS? NO . CARDIOLOGY: DO YOU HAVE A PACEMAKER OR DEFIBRILLATOR? NO . RESPIRATORY: HAVE YOU BEEN SICK IN THE PAST WEEK? NO . FEVER NO . FLU LIKE SYMPTOMS? NO . COUGH NO . INTEGUMENTARY: DO YOU HAVE ANY RASHES OR OPEN SORES? NO . ALLERGIC/IMMUNO: ARE YOU ALLERGIC TO SHELLFISH OR IV DYE? NO . ANY NEW ALLERGIES? NO . PSYCHIATRIC: DO YOU HAVE THOUGHTS OF HURTING YOURSELF OR SOMEONE ELSE? NO . ARE YOU ABUSED, NEGLECTED, OR IN AN UNSAFE ENVIRONMENT? NO . ENDOCRINOLOGY: ARE YOU DIABETIC? NO . OTHER: DO YOU NEED ANY PRESCRIPTIONS? NO . IF YES, PLEASE LIST: ____ . ANY NEW PROBLEMS WITH YOUR MEDICATIONS? NO . WHEN DID YOU LAST EAT? 12/06/16 1800 . WHEN DID YOU LAST DRINK? 12/07/16 0800 . WHAT DID YOU LAST DRINK? WATER . NAME OF PERSON DRIVING YOU HOME? DANIELITO CHRISTIANSEN . DO YOU HAVE ANY OTHER QUESTIONS OR CONCERNS NO . VITAL SIGNS WT 108.6 LBS, HT 64 IN, BMI 18.64 INDEX, BP 126/75 MM HG, HR 62 /MIN, RR 16 /MIN, TEMP 99.3 F, OXYGEN SAT % 100%. ASSESSMENTS INTERVERTEBRAL DISC DISORDERS WITH RADICULOPATHY, LUMBAR REGION - M51.16 (PRIMARY) PROCEDURES PN CAUDAL EPIDURALS PRE PROCEDURE DIAGNOSIS LUMBAR POST LAMINECTOMY PAIN SYNDROME POST PROCEDURE DIAGNOSIS LUMBAR POST LAMINECTOMY PAIN SYNDROME PROCEDURE CAUDAL EPIDURAL STEROID INJECTION UNDER FLUOROSCOPIC GUIDANCE SURGEON DR. TYLER LONGO FRUIT GRADER NONE ANESTHESIA LOCAL PRE PROCEDURE NOTE THE PATIENT HAS HISTORY OF CHRONIC LOW BACK PAIN. I EVALUATE THE PATIENT AND REVIEWED THE CHART. I WENT OVER THE RISKS, ALTERNATIVES, AND BENEFITS ASSOCIATED WITH THIS PROCEDURE. THE PATIENT WOULD LIKE TO PROCEED AND GIVE CONSENT TO PERFORMED THE PROCEDURE. THE PATIENT DENIES UNEXPLAINABLE WEIGHT LOSS, FEVER, CHILLS, OR NEW CHANGES IN URINARY OR BOWEL CONTROL. DESCRIPTION OF PROCEDURE THE PATIENT WAS BROUGHT TO THE PROCEDURE ROOM AND PLACED IN THE PRONE POSITION. THE LUMBOSACRAL AREA WAS CLEANED WITH BETADINE SOLUTION AND DRAPED ASEPTICALLY. THE PROCEDURE WAS DONE UNDER STERILE CONDITIONS. I CHECKED LATERALITY AND THE LEVEL WHERE THE PROCEDURE WAS GOING TO BE PERFORMED WITH THE PATIENT AND THE SUPPORTING STAFF AT THE MOMENT OF THE TIME OUT IN THE PROCEDURE ROOM. UNDER FLUOROSCOPIC GUIDANCE, THE TARGET POINT WAS SELECTED AT THE EPIDURAL SPACE BELOW THE SACROCOCCYGEAL LIGAMENT. LIDOCAINE 0.5% WAS USE TO NUMB THE SKIN AND THE SUBCUTANEOUS TISSUE BELOW IT. AN EPIDURAL TUOHY NEEDLE, 17-GAUGE, WAS ADVANCED UNDER FLUOROSCOPIC GUIDANCE AND FOLLOWING PATIENT FEEDBACK UNTIL THE EPIDURAL SPACE WAS REACHED 6 CM DEEP INTO THE SKIN BY THE LOSS OF RESISTANCE TECHNIQUE. ISOVUE M DYE 30%, 0.25 ML, WAS INJECTED SHOWING ADEQUATE SPREAD OF THE DYE. THEN, A SOLUTION OF 6 ML OF NORMAL SALINE WITH DEPO-MEDROL 60 MG WAS INJECTED SLOWLY FOLLOWING THE PATIENT FEEDBACK. THERE WAS NO EVIDENCE OF BLOOD, PARESTHESIA OR CEREBROSPINAL FLUID DURING THE PROCEDURE. THE PATIENT WAS SENT TO THE RECOVERY ROOM. THE PATIENT WAS MOVING THE EXTREMITIES AND DOING WELL. THERE WAS NO COMPLICATION DURING THE PROCEDURE. FLUOROSCOPY TIME WAS 8 SECONDS POST PROCEDURE NOTE THE PATIENT WILL BE SEEN IN A FOLLOW UP IN THE NEXT FEW WEEKS. INSTRUCTIONS WERE GIVEN, QUESTIONS WERE ANSWERED, AND THE PATIENT EXPRESSED UNDERSTANDING AND AGREES WITH THE PLAN. I, EVELIA HERNANDEZ, DOCUMENTED THE ABOVE INFORMATION ACTING A SCRIBE FOR DR. LONGO. I HAVE REVIEWED THE ABOVE DOCUMENT, WRITTEN BY EVELIA TORRESIBNini AND I VERIFY THAT IT IS ACCURATE DIAGNOSTIC IMAGING [facility] FLUORO GUIDE SPINE INJECTION (PAIN)[id number] PROCEDURE CODES 34275 LUMBAR/SACRAL W/ IMAGING 6045F RADXPS IN END [id number] PXD DISPOSITION & COMMUNICATION FOLLOW UP 3 WEEKS ELECTRONICALLY SIGNED BY TYLER LONGO MD ON 12/26/2016 AT 11:42 AM EDT DISCLAIMER : THIS IS A VISIT SUMMARY EXTRACTED FROM THE [employer] CHART. IT IS NOT A COPY OF THE [employer] PROGRESS NOTE. MTDD
== END ==
LOC: M PAIN 11:40
PROVIDERS: ATTEND Anesthesiology
DX: G89.29 Other chronic pain (principal); M51.16 Intervertebral disc disorders with radiculopathy, lumbar region; Z88.6 Allergy status to analgesic agent; Z88.8 Allergy status to other drugs, medicaments and biological substances; F17.200 Nicotine dependence, unspecified, uncomplicated; Z79.891 Long term (current) use of opiate analgesic; Z79.899 Other long term (current) drug therapy
CPT/HCPCS: 62323; J1030; Q9967

== ENCOUNTER 2016-12-24 16:23 | Emergency (ER) | payer MEDICARE, MEDICAID ==
[~2016-12-24] VITALS: Ht 162.6 cm; Wt 50.9 kg
[2016-12-24] MEDS ORDERED: MORP15TA2 PO (16:42)
[2016-12-24] MEDS ORDERED: MORP-38 PO (16:42)
[2016-12-24] MEDS ORDERED: CLOT10TR (16:42)
[2016-12-24] MEDS ORDERED: NAPR500T3 PO (16:42)
[2016-12-24] MEDS ORDERED: NS 1,000 ML IV ONE (17:15)
[2016-12-24 17:56] LABS: BASO # 0.1 K/mm3 (0.0-0.2); BASO % 0.7 % (0.0-1.0); EOS # 0.1 K/mm3 (0.0-0.50); EOS % 0.8 % (0.0-3.0); LARGE UNSTAINED CELL # 0.2 K/mm3 (0.0-0.4); LARGE UNSTAINED CELL % 1.9 % (0.0-4.0); LYMPH # 1.9 K/mm3 (1.5-4.5); LYMPH % 23.4 % (24.0-44.0); MEAN CORPUSCULAR HEMOGLOBIN 34.4 pg (27.0-33.0); MEAN CORPUSCULAR HGB CONC 35.1 g/dl (32.0-36.5); MONO # 0.4 K/mm3 (0.0-0.8); NEUTROPHILS # 5.6 K/mm3 (1.8-7.7); NEUTROPHILS % 68.3 % (36.0-66.0); PLATELET COUNT, AUTOMATED 281 k/mm3 (150-450); RED CELL DISTRIBUTION WIDTH 12.1 % (11.5-14.5); WHITE BLOOD COUNT 8.2 K/mm3 (4.0-10.0)
[2016-12-24 18:12] LABS: METHADONE URINE NEGATIVE (NEGATIVE)
[2016-12-24 18:23] LABS: ALBUMIN/GLOBULIN RATIO 1.11 (1.00-1.93); ALKALINE PHOSPHATASE 77 U/L (45-117); ALT/SGPT 26 U/L (12-78); ANION GAP 6 MEQ/L (8-16); AST/SGOT 16 U/L (15-37); BILIRUBIN,DIRECT 0.1 MG/DL (0.0-0.2); BILIRUBIN,TOTAL 0.3 MG/DL (0.2-1.0); BLOOD UREA NITROGEN 13 MG/DL (7-18); CALCIUM LEVEL 8.3 MG/DL (8.5-10.1); CARBON DIOXIDE LEVEL 31 MEQ/L (21-32); CHLORIDE LEVEL 105 MEQ/L (98-107); CREATININE FOR GFR 0.64 MG/DL (0.55-1.02); GLOMERULAR FILTRATION RATE > 60.0 (>58); GLUCOSE, FASTING 79 MG/DL (70-105); SODIUM LEVEL 142 MEQ/L (136-145); T UPTAKE 37 % (30-39); THYROXINE (T4) 11.2 UG/DL (4.5-12.0); TOTAL PROTEIN 7.6 GM/DL (6.4-8.2)
[2016-12-24 18:38] LABS: ERYTHROCYTE SEDIMENTATION RATE 6 mm/hr (0-20)
[2016-12-24 19:07] VITALS: BP 118/68
== END 2016-12-24 19:09 | disposition home or self-care (01) ==
LOC: M ED 16:23
DX: R53.83 Other fatigue (principal); G89.29 Other chronic pain; M54.9 Dorsalgia, unspecified; F17.200 Nicotine dependence, unspecified, uncomplicated; Z79.899 Other long term (current) drug therapy; Z88.8 Allergy status to other drugs, medicaments and biological substances

== ENCOUNTER → 2016-12-26 | Outpatient (CLI) | payer MEDICARE, MEDICAID ==
[~2016-12-26] MED LIST changes: -ISOVUE-M 300 61% 15ML VIAL (Q9967) As Ordered ONE; -LIDOCAINE 1% SDV INJ 30 ML VIAL As Ordered ONE; -methylPREDNISolone SUSP 40 MG/ML (DEPO-medrol) VIAL (J1030) As Ordered ONE
--- NOTE | 2016-12-26 15:09 | REP ---
PELVIC SONOGRAPHY: HISTORY: Abnormal uterine bleeding since December 07, 2016. FINDINGS: Transabdominal and transvaginal scanning demonstrate retroverted retroflexed uterus with dimensions of 9.5 x 4.7 x 5.9 cm. Endometrial echo 0.5 cm thick and centrally placed. No free fluid is seen. There is a 4.4 x 2.7 x 3.4 cm simple cyst affecting the right ovary. Right ovary dimensions are 5.1 x 2.9 x 3.9 cm. The left ovary measures 2.2 x 1.5 x 1.8 cm. It is unremarkable. IMPRESSION: 4.4 cm simple cyst right ovary. Retroverted retroflexed uterus. Otherwise negative.
== END ==
LOC: M WHC 11:24
PROVIDERS: ATTEND Family Medicine
DX: N93.9 Abnormal uterine and vaginal bleeding, unspecified (principal); N83.291 Other ovarian cyst, right side; N85.4 Malposition of uterus

== ENCOUNTER → 2017-01-12 | Outpatient (REF) | payer MEDICARE, MEDICAID ==
[2017-01-12 21:47] LABS: CALCIUM OXALATE CRYSTALS MODERATE
== END ==
LOC: M LAB REF 20:00
PROVIDERS: ATTEND Physician Assistant Medical
DX: N39.0 Urinary tract infection, site not specified (principal)

== ENCOUNTER → 2017-01-13 | Outpatient (CLI) | payer MEDICARE, MEDICAID | LOC: M PAIN 15:00 | PROVIDERS: ATTEND Anesthesiology | DX: Z53.29 Procedure and treatment not carried out because of patient's decision for other reasons (principal) ==

== ENCOUNTER → 2017-01-13 | Outpatient (CLI) | payer MEDICARE, MEDICAID ==
--- NOTE | 2017-01-27 00:19 | ECWPNPC ---
PATIENT NAME: SAEED MCLEOD : 1975 GENDER: FEMALE VISIT DATE: 01/13/2017 DISCHARGE DATE: 01/13/17 1524 VISIT LOCKED DATE TIME: PHYSICIAN: SAWYER CASE RESOURCE: SAWYER CASE REASON FOR APPOINTMENT 1. POST PROCEDURE HISTORY OF PRESENT ILLNESS HISTORY OF PRESENT ILLNESS: HERE FOR POST PROCEDURE F/U.HAD CAUDAL EPIDURAL ON 12-07-16.IS VERY DISTRAUGHT TODAY AND CRYING DURING VISIT.REPORTING HEAVY VAGINAL BLEEDING SINCE PROCEDURE.REPORTS GOING THROUGH 5 PADS PER DAY.SHE IS DISCOURAGED BECAUSE SHE GETS IMPROVEMENT IN HER PAIN DESPITE THESE SIDE EFFECTS.DR. LONGO CAME IN AND EVALUATED SITUATION.VERY ODD TO HAVE BLEEDING VAGINALLY A SIDE EFFECT OF STEROID INJECTION BUT WOULD LIKE ENDOCRINOLOGY OPINION.HE IS RECONSIDERING HER POTENTIAL FOR DCS.RATING PAIN VAS 5/10.FEELS SHE CONTINUES TO BENEFIT FROM CAUDAL LESI BUT IS DISTRAUGHT WITH BLEEDING. PAIN THE PATIENT DESCRIBES THE PAIN... FALL RISK SCREENING: SCREENING :NO FALLS IN THE PAST YEAR CURRENT MEDICATIONS TAKING MORPHINE SULFATE 15 MG TABLET 1/2 TABLET ORALLY BID PRN MDD2 TAKING NAPROXEN 500 MG TABLET 1 TABLET NEEDED ORALLY EVERY 12 HRS TAKING MORPHINE SULFATE ER 30 MG TABLET EXTENDED RELEASE 1 TABLET ORALLY EVERY 12 HRS MDD2 TAKING OMEPRAZOLE 40 MG CAPSULE DELAYED RELEASE 1 CAPSULE ORALLY ONCE A DAY, NOTES: NONE LATELY TAKING MULTI VITAMIN DAILY - TABLET 1 TABLET ORALLY ONCE A DAY, NOTES: LAST MONTH NOT-TAKING CLOTRIMAZOLE 10 MG SHER 1 SHER MOUTH/THROAT EVERY 4 HOURS NEEDED MEDICATION LIST REVIEWED AND RECONCILED WITH THE PATIENT PAST MEDICAL HISTORY CHRONIC BACK PAIN EMG SHOWS MILD, CHRONIC L S1 AND POSSIBLY L5 RADICULOPATHY; MILD CHRONIC R L5 RADICULOPATHY (08/2015) ALLERGIES ASPIRIN: SWELLING : ALLERGY GABAPENTIN: "FELT YUCKY": SIDE EFFECTS LYRICA: FELT YUCKY": SIDE EFFECTS SURGICAL HISTORY LAMINECTOMY 1998 BACK SURGERY AGAIN 1998 DIAGNOSTIC LAPARASCOPY WITH ENDOMETRIOSIS ABLATION (NANDA) 2003 (?) REVIEW OF SYSTEMS REVIEWED BY: PROVIDER: SAWYER BARAJAS . CONSTITUTIONAL: ANY CHANGE IN YOUR MEDICAL CONDITION? YES, PT C/O VAGINAL BLEEDING CONSTANT S/P CAUDAL EPIDURAL 12/07/16. PT STATES SHE HAS BEEN AT [facility] ER FOR THIS, HAS CALLED THE PAIN CENTER SEVERAL TIMES, SPOKEN TO NURSES WHO HAVE REFERRED HER TO PCP. PT STATES THIS VAGINAL BLEEDING HAPPENS S/P EVERY INJECTION DONE HERE AT PAIN CENTER. PREVIOUS INJECTIONS PT STATES THE VAGINAL BLEEDING LASTED X 1 WEEK, BUT THIS TIME, BLEEDING HAS NOT STOPPED AND VERY HEAVY, PT STATES SHE GOES THROUGH 6-7 FEMININE PADS/DAY. PT STATES VAGINAL U/S DONE SHOWING WNL. . CHILLS NO . FEVER NO . INFECTION: DO YOU HAVE NEW INFECTIONS? NO . DO YOU HAVE HISTORY OF MRSA? NO . MUSCULOSKELETAL: ANY NEW PATTERNS OF PAIN OR NUMBNESS? NO . GASTROENTEROLOGY: ANY NEW CHANGE IN BOWEL CONTROL? NO . GENITOURINARY: ANY NEW CHANGE IN BLADDER CONTROL? NO . IS THERE A CHANCE YOU COULD BE ? NO . HEMATOLOGY/LYMPH: DO YOU TAKE ANY BLOOD THINNERS? (FOR EXAMPLE- COUMADIN, PLAVIX, AGGRENOX, PLATEL, PRADAXA, OR XARELTO) NO . WHEN WAS YOUR LAST DOSE? DATE: TIME: . NEUROLOGY: HAVE YOU FALLEN IN THE PAST 6 MONTHS? NO . ANY NEW EXTREMITY NUMBNESS OR WEAKNESS? NO . CARDIOLOGY: DO YOU HAVE A PACEMAKER OR DEFIBRILLATOR? NO . RESPIRATORY: HAVE YOU BEEN SICK IN THE PAST WEEK? NO . FEVER NO . FLU LIKE SYMPTOMS? NO . COUGH NO . INTEGUMENTARY: DO YOU HAVE ANY RASHES OR OPEN SORES? NO . ALLERGIC/IMMUNO: ARE YOU ALLERGIC TO SHELLFISH OR IV DYE? NO . ANY NEW ALLERGIES? NO . PSYCHIATRIC: DO YOU HAVE THOUGHTS OF HURTING YOURSELF OR SOMEONE ELSE? NO . ARE YOU ABUSED, NEGLECTED, OR IN AN UNSAFE ENVIRONMENT? NO . ENDOCRINOLOGY: ARE YOU DIABETIC? NO . OTHER: DO YOU NEED ANY PRESCRIPTIONS? NO . IF YES, PLEASE LIST: ____ . ANY NEW PROBLEMS WITH YOUR MEDICATIONS? NO . WHEN DID YOU LAST EAT? ____ . WHEN DID YOU LAST DRINK? ____ . WHAT DID YOU LAST DRINK? ____ . NAME OF PERSON DRIVING YOU HOME? ____ . DO YOU HAVE ANY OTHER QUESTIONS OR CONCERNS NO . VITAL SIGNS WT 107 LBS, HT 64 IN, BMI 18.36 INDEX, BP 125/80 MM HG, HR 76 /MIN, RR 16 /MIN, TEMP 98.0 F, OXYGEN SAT % 98, REVIEWED BY: EM1. EXAMINATION GENERAL EXAMINATION: GENERAL APPEARANCE:UNCOMFORTABLE. PSYCHDEPRESSED,WEEPY. LUNGS:LUNG KAMARA ARE CLEAR TO AUSCULTATION BILATERALLY. GOOD MOVEMENT OF AIR. HEART:S1, S2 IN A REGULAR RATE AND RHYTHM. NO SIGNIFICANT MURMURS, RUBS OR GALLOPS NOTED. BACK:WELL HEALED SURGICAL SCAR L/S AXIS.POSITIVE L/S AXIAL PAIN, PERILUMBAR TENDERNESS. ASSESSMENTS INTERVERTEBRAL DISC DISORDERS WITH RADICULOPATHY, LUMBOSACRAL REGION - M51.17 (PRIMARY) CHRONIC PRESCRIPTION OPIATE USE - Z79.891 TREATMENT INTERVERTEBRAL DISC DISORDERS WITH RADICULOPATHY, LUMBOSACRAL REGION REFILL MORPHINE SULFATE TABLET, 15 MG, 1/2 TABLET, ORALLY, BID PRN MDD2, 30 DAY(S), 30, REFILLS 0 REFILL MORPHINE SULFATE ER TABLET EXTENDED RELEASE, 30 MG, 1 TABLET, ORALLY, EVERY 12 HRS MDD2, 30 DAY(S), 60, REFILLS 0 STOP NAPROXEN TABLET, 500 MG, 1 TABLET NEEDED, ORALLY, EVERY 12 HRS [facility] MRI SPINE, L.S. WITH [id number] [facility] MRI SPINE, THORACIC W/O & WITH [id number] NOTES: ISTOP REGISTRY REVIEWED [id number] DEMNOSTRATES COMPLLIANCE. BRINGS IN MEDICATIONS WHICH IS APPROPRIATE FOR WHAT WAS DISPENSED. RECENT URINE TOXICOLOGY REVIEWED. NO UNAUTHORIZED MEDICATIONS. NO ILLICIT SUBSTANCES AND PRESCRIBED MEDICATIONS WERE PRESENT. REFERRAL TO:[facility] REASON:VAGINAL BLEEDING AFTER EPIDURAL MSTEROID INJECTIONS PROCEDURE CODES FA211 ESTABILISHED PATIENT [facility] FACILITY CHARGE G4293 PAIN ASSESS POS TOOL F/U PLAN DOC G8427 DOC MEDS VERIFIED W/PT OR RE DISPOSITION & COMMUNICATION FOLLOW UP 2 WEEKS (REASON: PSYCH EVAL FOR DCS TRIAL REQUEST FROM INSURANCE) ELECTRONICALLY SIGNED BY KARL MONCADA ON 01/26/2017 AT 09:03 PM EDT DISCLAIMER : THIS IS A VISIT SUMMARY EXTRACTED FROM THE [employer] CHART. IT IS NOT A COPY OF THE [employer] PROGRESS NOTE. MTDD
== END ==
LOC: M PAIN 14:00
PROVIDERS: ATTEND Nurse Practitioner Family
DX: G89.29 Other chronic pain (principal); M51.17 Intervertebral disc disorders with radiculopathy, lumbosacral region; N93.9 Abnormal uterine and vaginal bleeding, unspecified; F17.200 Nicotine dependence, unspecified, uncomplicated; Z79.891 Long term (current) use of opiate analgesic; Z79.899 Other long term (current) drug therapy

== ENCOUNTER → 2017-01-27 | Outpatient (REF) | payer MEDICARE, MEDICAID | LOC: M SFHCPLAZ 13:20 | PROVIDERS: ATTEND Obstetrics & Gynecology | DX: Z01.419 Encounter for gynecological examination (general) (routine) without abnormal findings (principal); R87.622 Low grade squamous intraepithelial lesion on cytologic smear of vagina (LGSIL); N93.9 Abnormal uterine and vaginal bleeding, unspecified; Z11.3 Encounter for screening for infections with a predominantly sexual mode of transmission | CPT/HCPCS: 87491; 87591; G0101; G0123 ==

== ENCOUNTER → 2017-02-08 | Outpatient (CLI) | payer MEDICARE, MEDICAID ==
--- NOTE | 2017-02-22 00:54 | ECWPNPC ---
PATIENT NAME: SAEED MCLEOD : 1975 GENDER: FEMALE VISIT DATE: 02/08/2017 DISCHARGE DATE: 02/08/17 1545 VISIT LOCKED DATE TIME: PHYSICIAN: SAWYER CASE RESOURCE: SAWYER CASE REASON FOR APPOINTMENT 1. BACK HISTORY OF PRESENT ILLNESS HISTORY OF PRESENT ILLNESS: HERE FOR F/U.HAD CAUDAL EPIDURAL ON 12-07-16..REPORTED HEAVY VAGINAL BLEEDING POST PROCEDURE.THIS HAS STOPPED AND IS HAVING NORMAL PERIODS AGAIN.HE IS RECONSIDERING HER POTENTIAL FOR DCS.RATING PAIN VAS 8/10.FEELS SHE CONTINUES TO BENEFIT FROM CAUDAL LESI BUT IS DISTRAUGHT WITH BLEEDING THAT OCCURED AFTER.HAD DCS PSYCHOLOGICAL EXAM.DIDNT HAVE MRI DONE PLANNED. PAIN THE PATIENT DESCRIBES THE PAIN... THE PATIENT DESCRIBES THE PAIN... FALL RISK SCREENING: SCREENING :NO FALLS IN THE PAST YEAR CURRENT MEDICATIONS TAKING MORPHINE SULFATE 15 MG TABLET 1/2 TABLET ORALLY BID PRN MDD2 TAKING NAPROXEN 500 MG TABLET 1 TABLET NEEDED ORALLY EVERY 12 HRS TAKING MORPHINE SULFATE ER 30 MG TABLET EXTENDED RELEASE 1 TABLET ORALLY EVERY 12 HRS MDD2 TAKING MULTI VITAMIN DAILY - TABLET 1 TABLET ORALLY ONCE A DAY, NOTES: LAST MONTH DISCONTINUED OMEPRAZOLE 40 MG CAPSULE DELAYED RELEASE 1 CAPSULE ORALLY ONCE A DAY, NOTES: NONE LATELY DISCONTINUED CLOTRIMAZOLE 10 MG SHER 1 SHER MOUTH/THROAT EVERY 4 HOURS NEEDED MEDICATION LIST REVIEWED AND RECONCILED WITH THE PATIENT PAST MEDICAL HISTORY CHRONIC BACK PAIN EMG SHOWS MILD, CHRONIC L S1 AND POSSIBLY L5 RADICULOPATHY; MILD CHRONIC R L5 RADICULOPATHY (08/2015) ALLERGIES ASPIRIN: SWELLING : ALLERGY GABAPENTIN: "FELT YUCKY": SIDE EFFECTS LYRICA: FELT YUCKY": SIDE EFFECTS SOCIAL HISTORY GENERAL: TOBACCO USE ARE YOU A:CURRENT SMOKER ARE YOU INTERESTED IN QUITTING?THINKING ABOUT QUITTING PREVIOUS QUIT ATTEMPTS?YES, MORE THAN 6 MONTHS AGO. COUNSELED THE PATIENT ON SMOKING CESSATION, EDUCATION [id number]/11/2017 HOW MANY CIGARETTES A DAY DO YOU SMOKE?5 OR LESS HOW SOON AFTER YOU WAKE UP DO YOU SMOKE YOUR FIRST CIGARETTE?AFTER 60 MIN HOW OFTEN DO YOU SMOKE CIGARETTES?EVERY DAY PATIENT COUNSELED ON THE DANGERS OF TOBACCO USE AND URGED TO QUIT:02/08/2017 SMOKING CESSATION INFORMATION GIVEN11/02/2016 ALCOHOL SCREENING DID YOU HAVE A DRINK CONTAINING ALCOHOL IN THE PAST YEAR?NO POINTS0 INTERPRETATIONNEGATIVE RECREATIONAL DRUG USE DRUG USE?NO CAFFEINE CAFFEINE USE?YES SEXUAL HX HAD SEX IN THE LAST 12 MONTHS (VAGINAL, ORAL, OR ANAL)?YES HIV / HEP-C SCREENING HIV TEST OFFERED TO PATIENT:YES DATE OFFERED:12/20/2016 TEST ACCEPTED:YES OCCUPATION: UNEMPLOYED. DIET: REGULAR. EXERCISE: NO REGULAR EXERCISE. MARITAL STATUS: SINGLE. OTHERS AT HOME: CHILDREN. PETS: NONE. ADVENTISM ADVENTISM NO NONDENOMINATIONAL BELIEFS THAT WOULD IMPACT HEALTH CARE. 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 0. PAIN CLINIC PFS, CLERGY, PUBLIC HEALTH REFERRALS HAS THE PATIENT BEEN EDUCATED REGARDING HIS/HER PLAN OF CARE?YES HAS THE PATIENT BEEN EDUCATED REGARDING PAIN, THE RISK FOR PAIN, THE IMPORTANCE OF EFFECTIVE PAIN MANAGEMENT, AND THE PAIN ASSESSMENT PROCESS?YES REVIEW OF SYSTEMS REVIEWED BY: PROVIDER: SAWYER BARAJAS . CONSTITUTIONAL: ANY CHANGE IN YOUR MEDICAL CONDITION? NO . CHILLS NO . FEVER NO . INFECTION: DO YOU HAVE NEW INFECTIONS? NO . DO YOU HAVE HISTORY OF MRSA? NO . MUSCULOSKELETAL: ANY NEW PATTERNS OF PAIN OR NUMBNESS? NO . GASTROENTEROLOGY: ANY NEW CHANGE IN BOWEL CONTROL? NO . GENITOURINARY: ANY NEW CHANGE IN BLADDER CONTROL? NO . IS THERE A CHANCE YOU COULD BE ? NO . HEMATOLOGY/LYMPH: DO YOU TAKE ANY BLOOD THINNERS? (FOR EXAMPLE- COUMADIN, PLAVIX, AGGRENOX, PLATEL, PRADAXA, OR XARELTO) NO . WHEN WAS YOUR LAST DOSE? DATE: TIME: . NEUROLOGY: HAVE YOU FALLEN IN THE PAST 6 MONTHS? NO . ANY NEW EXTREMITY NUMBNESS OR WEAKNESS? NO . CARDIOLOGY: DO YOU HAVE A PACEMAKER OR DEFIBRILLATOR? NO . RESPIRATORY: HAVE YOU BEEN SICK IN THE PAST WEEK? NO . FEVER NO . FLU LIKE SYMPTOMS? NO . COUGH NO . INTEGUMENTARY: DO YOU HAVE ANY RASHES OR OPEN SORES? NO . ALLERGIC/IMMUNO: ARE YOU ALLERGIC TO SHELLFISH OR IV DYE? NO . ANY NEW ALLERGIES? NO . PSYCHIATRIC: DO YOU HAVE THOUGHTS OF HURTING YOURSELF OR SOMEONE ELSE? NO . ARE YOU ABUSED, NEGLECTED, OR IN AN UNSAFE ENVIRONMENT? NO . ENDOCRINOLOGY: ARE YOU DIABETIC? NO . OTHER: DO YOU NEED ANY PRESCRIPTIONS? NO . IF YES, PLEASE LIST: ____ . ANY NEW PROBLEMS WITH YOUR MEDICATIONS? NO . WHEN DID YOU LAST EAT? ____ . WHEN DID YOU LAST DRINK? ____ . WHAT DID YOU LAST DRINK? ____ . NAME OF PERSON DRIVING YOU HOME? ____ . DO YOU HAVE ANY OTHER QUESTIONS OR CONCERNS NO . VITAL SIGNS WT 107 LBS, HT 64 IN, BMI 18.36 INDEX, BP 122/74 MM HG, HR 61 /MIN, RR 16 /MIN, TEMP 98.0 F, OXYGEN SAT % 99%, SAFE IN ENV? (Y/N) YES, NA INITIALS SC 14:48, REVIEWED BY: MARTHA. EXAMINATION GENERAL EXAMINATION: GENERAL APPEARANCE:UNCOMFORTABLE. PSYCHDEPRESSED,WEEPY. LUNGS:LUNG KAMARA ARE CLEAR TO AUSCULTATION BILATERALLY. GOOD MOVEMENT OF AIR. HEART:S1, S2 IN A REGULAR RATE AND RHYTHM. NO SIGNIFICANT MURMURS, RUBS OR GALLOPS NOTED. BACK:WELL HEALED SURGICAL SCAR L/S AXIS.POSITIVE L/S AXIAL PAIN, PERILUMBAR TENDERNESS. ASSESSMENTS INTERVERTEBRAL DISC DISORDERS WITH RADICULOPATHY, LUMBOSACRAL REGION - M51.17 (PRIMARY) CHRONIC PRESCRIPTION OPIATE USE - Z79.891 TREATMENT INTERVERTEBRAL DISC DISORDERS WITH RADICULOPATHY, LUMBOSACRAL REGION NOTES: ISTOP REGISTRY [id number] AND DEMNOSTRATES COMPLIANCE. BRINGS IN MEDICATIONS WHICH IS APPROPRIATE FOR WHAT WAS DISPENSED. RECENT URINE TOXICOLOGY REVIEWED. NO UNAUTHORIZED MEDICATIONS. NO ILLICIT SUBSTANCES AND PRESCRIBED MEDICATIONS WERE PRESENT. DO MRI THORACIC AND L/S SPINE-PRE DCS TRIAL. PROCEDURE CODES FA211 ESTABILISHED PATIENT [facility] FACILITY CHARGE G8730 PAIN ASSESS POS TOOL F/U PLAN DOC G8427 DOC MEDS VERIFIED W/PT OR RE DISPOSITION & COMMUNICATION FOLLOW UP 4 WEEKS ELECTRONICALLY SIGNED BY KARL MONCADA ON 02/21/2017 AT 10:39 AM EDT DISCLAIMER : THIS IS A VISIT SUMMARY EXTRACTED FROM THE [employer] CHART. IT IS NOT A COPY OF THE [employer] PROGRESS NOTE. MTDD
== END ==
LOC: M PAIN 14:15
PROVIDERS: ATTEND Nurse Practitioner Family
DX: G89.29 Other chronic pain (principal); M51.17 Intervertebral disc disorders with radiculopathy, lumbosacral region; F17.210 Nicotine dependence, cigarettes, uncomplicated; Z88.6 Allergy status to analgesic agent; Z88.8 Allergy status to other drugs, medicaments and biological substances; Z79.891 Long term (current) use of opiate analgesic; Z79.899 Other long term (current) drug therapy

== ENCOUNTER → 2017-03-08 | Outpatient (CLI) | payer MEDICARE, MEDICAID ==
--- NOTE | 2017-03-30 01:40 | ECWPNPC ---
PATIENT NAME: SAEED MCLEOD : 1975 GENDER: FEMALE VISIT DATE: 03/08/2017 DISCHARGE DATE: 03/08/17 1349 VISIT LOCKED DATE TIME: PHYSICIAN: SAWYER CASE RESOURCE: SAWYER CASE REASON FOR APPOINTMENT 1. FOLLOWUP HISTORY OF PRESENT ILLNESS HISTORY OF PRESENT ILLNESS: HERE FOR F/U.HAD CAUDAL EPIDURAL ON 12-07-16..REPORTED HEAVY VAGINAL BLEEDING POST PROCEDURE. IS CONSIDERING HER FOR DCS TRIAL.RATING PAIN VAS 7/10.REVIEWED DR. YEBOAH PSYCHIATRIC EVALUATION WHICH WAS WITHIN NORMAL LIMITS.MRI OF L/S SPINE AND THORACIC SPINE REVIEWED AND WITHIN NORMAL LIMITS.HISTORY OF TWO LUMBAR SURGERIES AT AGE 23 AND 24.USING MS CONTIN 30MG BID AND MSIR 15 1/2 TAB UP TO ONE TABLET PER DAY.FINDS MEDICATION HELPFUL AT REDUCING PAIN AND KEEPING HER COMFORTABLE.DENIES SIDE EFFECTS. PAIN THE PATIENT DESCRIBES THE PAIN... THE PATIENT DESCRIBES THE PAIN... THE PATIENT DESCRIBES THE PAIN... FALL RISK SCREENING: SCREENING :NO FALLS IN THE PAST YEAR CURRENT MEDICATIONS TAKING MULTI VITAMIN DAILY - TABLET 1 TABLET ORALLY ONCE A DAY TAKING MORPHINE SULFATE 15 MG TABLET 1/2 TABLET ORALLY BID PRN MDD2 TAKING NAPROXEN 500 MG TABLET 1 TABLET NEEDED ORALLY EVERY 12 HRS TAKING MORPHINE SULFATE ER 30 MG TABLET EXTENDED RELEASE 1 TABLET ORALLY EVERY 12 HRS MDD2 TAKING ENERGY FOCUS 1 GUMMIE ORALLY TAKES 1 GUMMIE VITAMIN B12 DAILY MEDICATION LIST REVIEWED AND RECONCILED WITH THE PATIENT PAST MEDICAL HISTORY CHRONIC BACK PAIN EMG SHOWS MILD, CHRONIC L S1 AND POSSIBLY L5 RADICULOPATHY; MILD CHRONIC R L5 RADICULOPATHY (08/2015) ALLERGIES ASPIRIN: SWELLING : ALLERGY GABAPENTIN: "FELT YUCKY": SIDE EFFECTS LYRICA: FELT YUCKY": SIDE EFFECTS SOCIAL HISTORY GENERAL: TOBACCO USE ARE YOU A:CURRENT SMOKER HOW OFTEN DO YOU SMOKE CIGARETTES?EVERY DAY HOW SOON AFTER YOU WAKE UP DO YOU SMOKE YOUR FIRST CIGARETTE?AFTER 60 MIN HOW MANY CIGARETTES A DAY DO YOU SMOKE?5 OR LESS ARE YOU INTERESTED IN QUITTING?THINKING ABOUT QUITTING PATIENT COUNSELED ON THE DANGERS OF TOBACCO USE AND URGED TO QUIT:02/08/2017 COUNSELED THE PATIENT ON SMOKING CESSATION, EDUCATION [id number]/11/2017 SMOKING CESSATION INFORMATION GIVEN11/02/2016 PREVIOUS QUIT ATTEMPTS?YES, MORE THAN 6 MONTHS AGO. ALCOHOL SCREENING DID YOU HAVE A DRINK CONTAINING ALCOHOL IN THE PAST YEAR?NO POINTS0 INTERPRETATIONNEGATIVE RECREATIONAL DRUG USE DRUG USE?NO CAFFEINE CAFFEINE USE?YES SEXUAL HX HAD SEX IN THE LAST 12 MONTHS (VAGINAL, ORAL, OR ANAL)?YES HIV / HEP-C SCREENING HIV TEST OFFERED TO PATIENT:YES DATE OFFERED:12/20/2016 TEST ACCEPTED:YES OCCUPATION: UNEMPLOYED. DIET: REGULAR. EXERCISE: NO REGULAR EXERCISE. MARITAL STATUS: SINGLE. OTHERS AT HOME: CHILDREN. PETS: NONE. SIKHISM SIKHISM NO ORTHODOXY BELIEFS THAT WOULD IMPACT HEALTH CARE. LANGUAGE LANGUAGES SPOKEN:ZIMBABWEAN EDUCATION LEVEL OF EDUCATION:HIGH SCHOOL LEARNING BARRIERS / SPECIAL NEEDS CHANGE FROM LAST VISIT?YES BARRIERS TO LEARNING?NO HEARING IMPAIRED?NO VISION IMPAIRED?NO COGNITIVELY IMPAIRED?NO READINESS TO LEARN?YES LEARNING PREFERENCES?NO LEARNING CAPABILITIES PRESENT?YES EMOTIONAL BARRIERS?NO SPECIAL DEVICES?NO PRINTING MACHINIST NEEDED?NO NEW PATIENT PAIN DIARY TODAY'S VISIT NOTES, FROM 0-10, WHAT LEVEL IS YOUR PAIN TODAY? 0. PAIN CLINIC PFS, CLERGY, PUBLIC HEALTH REFERRALS PFS REFERRAL NEEDED?NO CLERGY REFERRAL NEEDED?NO PUBLIC HEALTH REFERRAL NEEDED?NO HAS THE PATIENT BEEN EDUCATED REGARDING HIS/HER PLAN OF CARE?YES HAS THE PATIENT BEEN EDUCATED REGARDING PAIN, THE RISK FOR PAIN, THE IMPORTANCE OF EFFECTIVE PAIN MANAGEMENT, AND THE PAIN ASSESSMENT PROCESS?YES ADVANCE DIRECTIVES HEALTH CARE PROXY?NO WOULD YOU LIKE MORE INFORMATION?NO DO YOU HAVE A DNR?NO WOULD YOU LIKE MORE INFORMATION?NO LIVING WILL?NO POWER OF CONSULTING SERVICES MANAGER?NO WOULD YOU LIKE MORE INFORMATION?NO REVIEW OF SYSTEMS REVIEWED BY: PROVIDER: SAWYER BARAJAS . CONSTITUTIONAL: ANY CHANGE IN YOUR MEDICAL CONDITION? NO . CHILLS NO . FEVER NO . INFECTION: DO YOU HAVE NEW INFECTIONS? NO . DO YOU HAVE HISTORY OF MRSA? NO . MUSCULOSKELETAL: ANY NEW PATTERNS OF PAIN OR NUMBNESS? YES, NUMBNESS IN LEFT FOOT UPON GETTING UP AND HAPPENING MORE FREQUENTLY . GASTROENTEROLOGY: ANY NEW CHANGE IN BOWEL CONTROL? NO . GENITOURINARY: ANY NEW CHANGE IN BLADDER CONTROL? NO . IS THERE A CHANCE YOU COULD BE ? NO . HEMATOLOGY/LYMPH: DO YOU TAKE ANY BLOOD THINNERS? (FOR EXAMPLE- COUMADIN, PLAVIX, AGGRENOX, PLATEL, PRADAXA, OR XARELTO) NO . WHEN WAS YOUR LAST DOSE? DATE: TIME: . NEUROLOGY: HAVE YOU FALLEN IN THE PAST 6 MONTHS? NO . ANY NEW EXTREMITY NUMBNESS OR WEAKNESS? NO . CARDIOLOGY: DO YOU HAVE A PACEMAKER OR DEFIBRILLATOR? NO . RESPIRATORY: HAVE YOU BEEN SICK IN THE PAST WEEK? NO . FEVER NO . FLU LIKE SYMPTOMS? NO . COUGH NO . INTEGUMENTARY: DO YOU HAVE ANY RASHES OR OPEN SORES? NO . ALLERGIC/IMMUNO: ARE YOU ALLERGIC TO SHELLFISH OR IV DYE? NO . ANY NEW ALLERGIES? NO . PSYCHIATRIC: DO YOU HAVE THOUGHTS OF HURTING YOURSELF OR SOMEONE ELSE? NO . ARE YOU ABUSED, NEGLECTED, OR IN AN UNSAFE ENVIRONMENT? NO . ENDOCRINOLOGY: ARE YOU DIABETIC? NO . OTHER: DO YOU NEED ANY PRESCRIPTIONS? NO . IF YES, PLEASE LIST: ____ . ANY NEW PROBLEMS WITH YOUR MEDICATIONS? NO . WHEN DID YOU LAST EAT? ____ . WHEN DID YOU LAST DRINK? ____ . WHAT DID YOU LAST DRINK? ____ . NAME OF PERSON DRIVING YOU HOME? ____ . DO YOU HAVE ANY OTHER QUESTIONS OR CONCERNS NO . VITAL SIGNS WT 107 LBS, HT 64 IN, BMI 18.36 INDEX, BP 127/72 MM HG, HR 78 /MIN, RR 16 /MIN, TEMP 99.3 F, SAFE IN ENV? (Y/N) YES, NA INITIALS GA 12:51, REVIEWED BY: JESUSITA. EXAMINATION GENERAL EXAMINATION: GENERAL APPEARANCE:UNCOMFORTABLE . PSYCHDEPRESSED,WEEPY . LUNGS:LUNG KAMARA ARE CLEAR TO AUSCULTATION BILATERALLY. GOOD MOVEMENT OF AIR . HEART:S1, S2 IN A REGULAR RATE AND RHYTHM. NO SIGNIFICANT MURMURS, RUBS OR GALLOPS NOTED . BACK:WELL HEALED SURGICAL SCAR L/S AXIS.POSITIVE L/S AXIAL PAIN, PERILUMBAR TENDERNESS . DIAGNOSTIC:MRI L/S SPINE AND THORACIC -03-08-06-REVIEWED. ASSESSMENTS INTERVERTEBRAL DISC DISORDERS WITH RADICULOPATHY, LUMBOSACRAL REGION - M51.17 (PRIMARY) CHRONIC PRESCRIPTION OPIATE USE - Z79.891 TREATMENT INTERVERTEBRAL DISC DISORDERS WITH RADICULOPATHY, LUMBOSACRAL REGION REFILL MORPHINE SULFATE TABLET, 15 MG, 1/2 TABLET, ORALLY, BID PRN MDD2, 30 DAY(S), 30, REFILLS 0 CONTINUE NAPROXEN TABLET, 500 MG, 1 TABLET NEEDED, ORALLY, EVERY 12 HRS REFILL MORPHINE SULFATE ER TABLET EXTENDED RELEASE, 30 MG, 1 TABLET, ORALLY, EVERY 12 HRS MDD2, 30 DAY(S), 60, REFILLS 0 NOTES: ISTOP REGISTRY REVIEWED [id number] AND DEMNOSTRATES COMPLLIANCE. BRINGS IN MEDICATIONS WHICH IS APPROPRIATE FOR WHAT WAS DISPENSED. RECENT URINE TOXICOLOGY REVIEWED. NO UNAUTHORIZED MEDICATIONS. NO ILLICIT SUBSTANCES AND PRESCRIBED MEDICATIONS WERE PRESENT. URINE TOX TODAY., RISKS AND BENEFITS OF NARCOTIC/OPIOD MEDICATIONS WERE REVIEWED WITH PATIENT - THIS INCLUDES BUT IS NOT LIMITED TO RISK OF DEPENDANCE/DEVELOPMENT OF ADDICTION, MOOD DISTURBANCE AND DEPRESSION, OSTEOPOROSIS, HORMONAL AND LABIDAL CHANGES, RESPIRATORY DEPRESSION AND . PATIENT IS ADVISED NOT TO DRIVE WHILE ON THESE MEDICATIONS. PROCEDURE CODES FA211 ESTABILISHED PATIENT [facility] CHARGE G8730 PAIN ASSESS POS TOOL F/U PLAN DOC G8427 DOC MEDS VERIFIED W/PT OR RE DISPOSITION & COMMUNICATION FOLLOW UP F/U DR. Lovell DISCUSS DCS TRIAL ELECTRONICALLY SIGNED BY KARL MONCADA ON 03/27/2017 AT 06:54 PM EST DISCLAIMER : THIS IS A VISIT SUMMARY EXTRACTED FROM THE [employer] CHART. IT IS NOT A COPY OF THE [employer] PROGRESS NOTE. MTDD
== END ==
LOC: M PAIN 13:00
PROVIDERS: ATTEND Nurse Practitioner Family
DX: M51.17 Intervertebral disc disorders with radiculopathy, lumbosacral region (principal); Z79.891 Long term (current) use of opiate analgesic; Z79.899 Other long term (current) drug therapy; F17.210 Nicotine dependence, cigarettes, uncomplicated; Z88.8 Allergy status to other drugs, medicaments and biological substances

== ENCOUNTER → 2017-03-28 | Outpatient (CLI) | payer MEDICARE, MEDICAID ==
--- NOTE | 2017-04-12 01:18 | ECWPNPC ---
PATIENT NAME: SAEED MCLEOD : 1975 GENDER: FEMALE VISIT DATE: 03/28/2017 DISCHARGE DATE: 03/28/17 1247 VISIT LOCKED DATE TIME: PHYSICIAN: TYLER LONGO RESOURCE: TYLER LONGO REASON FOR APPOINTMENT 1. BACK PAIN HISTORY OF PRESENT ILLNESS HISTORY OF PRESENT ILLNESS: PAIN THE PATIENT DESCRIBES THE PAIN... 42 YEAR OLD FEMALE PATIENT WITH HISTORY OF CHRONIC THORACIC AND LUMBAR PAIN. PATIENT DESCRIBES THE PAIN . TENDER, SHARP, STABBING, THROBBING AND HAVING IT ALL THE TIME WITH A PAIN SCORE OF 7/10 ON TODAY'S VISIT. PATIENT REPORTS THAT WHEN SHE SITS FOR A LONG PERIOD OF TIME THE PAIN WORSENS AND BEGINS TO SPREAD. PATIENT REPORTS THAT SHE HAS DIFFICULTIES SLEEPING AT NIGHT, BUT USUALLY ONCE SHE TAKES HER MEDICATION SHE CAN STAY ASLEEP. PATIENT STATES THAT SHE HAS HAD THIS PAIN SINCE SHE WAS 20 YEARS OLD. PATIENT REPORTS THAT SHE HAS HAD TWO SURGERIES IN HER BACK ONE WHEN SHE WAS 23 AND THE SECOND WHEN SHE WAS 24. PATIENT STATES THAT SHE HAS BEEN TAKING MORPHINE SINCE SEPTEMBER. PATIENT REPORTS THAT SINCE SHE HAS STARTED ON MORPHINE SHE HAS SEEN AN INCREASED IN HER QUALITY OF LIFE, BUT IT DOES NOT TAKE ALL THE PAIN AWAY, BUT IT HAS ALLOWED HER TO BE MORE MOBILE. PATIENT REPORTS THAT SHE IS SEEING ME TODAY TO DISCUSS THE POSSIBILITY OF A DCS. PATIENT REPORTS THAT SHE HAS TRIED INJECTIONS IN THE PAST AND THEY DID WORK FOR A FEW WEEKS. PATIENT REPORTS THAT HER THORACIC AND LUMBAR BACK HURTS THE MOST. PATIENT DENIES UNEXPLAINABLE WEIGHT LOSS, FEVER, CHILLS, NEW CHANGES ON HIS/HER URINARY OR BOWEL CONTROL. FALL RISK SCREENING: SCREENING :NO FALLS IN THE PAST YEAR CURRENT MEDICATIONS TAKING MULTI VITAMIN DAILY - TABLET 1 TABLET ORALLY ONCE A DAY TAKING ENERGY FOCUS 1 GUMMIE ORALLY TAKES 1 GUMMIE VITAMIN B12 DAILY TAKING MORPHINE SULFATE 15 MG TABLET 1/2 TABLET ORALLY BID PRN MDD2 TAKING NAPROXEN 500 MG TABLET 1 TABLET NEEDED ORALLY EVERY 12 HRS TAKING MORPHINE SULFATE ER 30 MG TABLET EXTENDED RELEASE 1 TABLET ORALLY EVERY 12 HRS MDD2 MEDICATION LIST REVIEWED AND RECONCILED WITH THE PATIENT PAST MEDICAL HISTORY CHRONIC BACK PAIN EMG SHOWS MILD, CHRONIC L S1 AND POSSIBLY L5 RADICULOPATHY; MILD CHRONIC R L5 RADICULOPATHY (08/2015) ALLERGIES ASPIRIN: SWELLING : ALLERGY GABAPENTIN: "FELT YUCKY": SIDE EFFECTS LYRICA: FELT YUCKY": SIDE EFFECTS SOCIAL HISTORY GENERAL: TOBACCO USE ARE YOU A:CURRENT SMOKER ARE YOU INTERESTED IN QUITTING?THINKING ABOUT QUITTING PREVIOUS QUIT ATTEMPTS?YES, MORE THAN 6 MONTHS AGO. COUNSELED THE PATIENT ON SMOKING CESSATION, EDUCATION [id number]/28/2017 HOW MANY CIGARETTES A DAY DO YOU SMOKE?5 OR LESS HOW SOON AFTER YOU WAKE UP DO YOU SMOKE YOUR FIRST CIGARETTE?AFTER 60 MIN HOW OFTEN DO YOU SMOKE CIGARETTES?EVERY DAY PATIENT COUNSELED ON THE DANGERS OF TOBACCO USE AND URGED TO QUIT:03/28/2017 SMOKING CESSATION INFORMATION GIVEN11/02/2016 ALCOHOL SCREENING DID YOU HAVE A DRINK CONTAINING ALCOHOL IN THE PAST YEAR?NO POINTS0 INTERPRETATIONNEGATIVE RECREATIONAL DRUG USE DRUG USE?NO CAFFEINE CAFFEINE USE?YES SEXUAL HX HAD SEX IN THE LAST 12 MONTHS (VAGINAL, ORAL, OR ANAL)?YES HIV / HEP-C SCREENING HIV TEST OFFERED TO PATIENT:YES DATE OFFERED:12/20/2016 TEST ACCEPTED:YES OCCUPATION: UNEMPLOYED. DIET: REGULAR. EXERCISE: NO REGULAR EXERCISE. MARITAL STATUS: SINGLE. OTHERS AT HOME: CHILDREN. PETS: NONE. CHRISTIAN CHRISTIAN NO ADVENT BELIEFS THAT WOULD IMPACT HEALTH CARE. LANGUAGE LANGUAGES SPOKEN:BHUTANESE EDUCATION LEVEL OF EDUCATION:HIGH SCHOOL LEARNING BARRIERS / SPECIAL NEEDS CHANGE FROM LAST VISIT?YES BARRIERS TO LEARNING?NO HEARING IMPAIRED?NO VISION IMPAIRED?NO COGNITIVELY IMPAIRED?NO READINESS TO LEARN?YES LEARNING PREFERENCES?NO LEARNING CAPABILITIES PRESENT?YES EMOTIONAL BARRIERS?NO SPECIAL DEVICES?NO CORONER FORENSIC TECHNICIAN NEEDED?NO NEW PATIENT PAIN DIARY TODAY'S VISIT NOTES, FROM 0-10, WHAT LEVEL IS YOUR PAIN TODAY? 0. PAIN CLINIC PFS, CLERGY, PUBLIC HEALTH REFERRALS PFS REFERRAL NEEDED?NO CLERGY REFERRAL NEEDED?NO PUBLIC HEALTH REFERRAL NEEDED?NO HAS THE PATIENT BEEN EDUCATED REGARDING HIS/HER PLAN OF CARE?YES HAS THE PATIENT BEEN EDUCATED REGARDING PAIN, THE RISK FOR PAIN, THE IMPORTANCE OF EFFECTIVE PAIN MANAGEMENT, AND THE PAIN ASSESSMENT PROCESS?YES ADVANCE DIRECTIVES HEALTH CARE PROXY?NO WOULD YOU LIKE MORE INFORMATION?NO DO YOU HAVE A DNR?NO WOULD YOU LIKE MORE INFORMATION?NO LIVING WILL?NO POWER OF CLOUD ARCHITECT?NO WOULD YOU LIKE MORE INFORMATION?NO DOMESTIC VIOLENCE DO YOU FEEL SAFE IN YOUR ENVIRONMENT?YES REVIEW OF SYSTEMS REVIEWED BY: PROVIDER: , TYLER LONGO MD . CONSTITUTIONAL: ANY CHANGE IN YOUR MEDICAL CONDITION? NO . CHILLS NO . FEVER NO . INFECTION: DO YOU HAVE NEW INFECTIONS? NO . DO YOU HAVE HISTORY OF MRSA? NO . MUSCULOSKELETAL: ANY NEW PATTERNS OF PAIN OR NUMBNESS? NO . GASTROENTEROLOGY: ANY NEW CHANGE IN BOWEL CONTROL? NO . GENITOURINARY: ANY NEW CHANGE IN BLADDER CONTROL? NO . IS THERE A CHANCE YOU COULD BE ? NO . HEMATOLOGY/LYMPH: DO YOU TAKE ANY BLOOD THINNERS? (FOR EXAMPLE- COUMADIN, PLAVIX, AGGRENOX, PLATEL, PRADAXA, OR XARELTO) NO . WHEN WAS YOUR LAST DOSE? DATE: TIME: . NEUROLOGY: HAVE YOU FALLEN IN THE PAST 6 MONTHS? NO . ANY NEW EXTREMITY NUMBNESS OR WEAKNESS? NO . CARDIOLOGY: DO YOU HAVE A PACEMAKER OR DEFIBRILLATOR? NO . RESPIRATORY: HAVE YOU BEEN SICK IN THE PAST WEEK? NO . FEVER NO . FLU LIKE SYMPTOMS? NO . COUGH NO . INTEGUMENTARY: DO YOU HAVE ANY RASHES OR OPEN SORES? NO . ALLERGIC/IMMUNO: ARE YOU ALLERGIC TO SHELLFISH OR IV DYE? NO . ANY NEW ALLERGIES? NO . PSYCHIATRIC: DO YOU HAVE THOUGHTS OF HURTING YOURSELF OR SOMEONE ELSE? NO . ARE YOU ABUSED, NEGLECTED, OR IN AN UNSAFE ENVIRONMENT? NO . ENDOCRINOLOGY: ARE YOU DIABETIC? NO . OTHER: DO YOU NEED ANY PRESCRIPTIONS? NO . IF YES, PLEASE LIST: ____ . ANY NEW PROBLEMS WITH YOUR MEDICATIONS? NO . WHEN DID YOU LAST EAT? ____ . WHEN DID YOU LAST DRINK? ____ . WHAT DID YOU LAST DRINK? ____ . NAME OF PERSON DRIVING YOU HOME? ____ . DO YOU HAVE ANY OTHER QUESTIONS OR CONCERNS NO . VITAL SIGNS WT 105.0 LBS, HT 64 IN, BMI 18.02 INDEX, BP 111/68 MM HG, HR 66 /MIN, RR 16 /MIN, TEMP 98.5 F, OXYGEN SAT % 97%, SAFE IN ENV? (Y/N) Y, NA INITIALS TL 1539, REVIEWED BY: ASSESSMENTS INTERVERTEBRAL DISC DISORDER WITH RADICULOPATHY OF LUMBOSACRAL REGION - M51.17 (PRIMARY) SKILLED NURSING CURRENT USE OF OPIATE ANALGESIC - Z79.891 TREATMENT OTHERS CLINICAL NOTES: WE DISCUSSED SEVERAL ISSUES WITH MS. MCLEOD'S PAIN MANAGEMENT CASE. I DISCUSSED IN DETAIL WITH THE PATIENT PAIN MANAGEMENT OPTIONS. THE PATIENT HAS HAD INJECTIONS IN THE PAST AND TODAY WE DISCUSSED A DCS TIRAL. I DISCUSSED WITH THE PATIENT MY CONCERNS ABOUT HER MORPHINE USE AND STATES THAT SHE WOULD LIKE TO COME OFF MORPHINE IF THERE WAS AN ALTERNATIVE THAT WOULD HELP TO TAKE HER PAIN AWAY. I DISCUSSED WITH THE PATIENT AT THIS TIME IT WOULD BE BEST TO PROCEED WITH THE DCS TRIAL AND SEE HOW IT AFFECTS HER PAIN. PATIENT WILL HAVE A CAUDAL EPIDURAL TO HELP EASE HER PAIN BEFORE THE DCS TRIAL. INSTRUCTIONS WERE GIVEN, QUESTIONS WERE ANSWERED, PATIENT REPORTS UNDERSTANDING AND AGREES WITH THE PLAN. I, FILOMENA PACHECO, DOCUMENTED THE ABOVE INFORMATION ACTING A SCRIBE FOR DR. LONGO. I HAVE REVIEWED THE ABOVE DOCUMENT, WRITTEN BY FILOMENA TORRESIBNini AND I VERIFY THAT IT IS ACCURATE. PROCEDURE CODES FA211 ESTABILISHED PATIENT [facility] CHARGE G8730 PAIN ASSESS POS TOOL F/U PLAN DOC G8427 DOC MEDS VERIFIED W/PT OR RE DISPOSITION & COMMUNICATION FOLLOW UP 6 WEEKS ELECTRONICALLY SIGNED BY TYLER LONGO MD ON 04/11/2017 AT 09:12 PM EST DISCLAIMER : THIS IS A VISIT SUMMARY EXTRACTED FROM THE [employer] CHART. IT IS NOT A COPY OF THE [employer] PROGRESS NOTE. TIMOTHY
== END ==
LOC: M PAIN 15:15
PROVIDERS: ATTEND Anesthesiology
DX: G89.29 Other chronic pain (principal); M51.17 Intervertebral disc disorders with radiculopathy, lumbosacral region; F17.210 Nicotine dependence, cigarettes, uncomplicated; Z79.891 Long term (current) use of opiate analgesic; Z79.899 Other long term (current) drug therapy; Z88.6 Allergy status to analgesic agent; Z88.8 Allergy status to other drugs, medicaments and biological substances

== ENCOUNTER → 2017-04-12 | Outpatient (CLI) | payer MEDICARE, MEDICAID ==
[~2017-04-12] MED LIST changes: -CLOT10TR; +ISOVUE-M 300 61% 15ML VIAL (Q9967) As Ordered; +LIDOCAINE 1% SDV INJ 30 ML VIAL As Ordered; -MORP-38 PO; -MORP15TA2 PO; -NAPR500T3 PO; +methylPREDNISolone SUSP 40 MG/ML (DEPO-medrol) VIAL (J1030) As Ordered
== END ==
LOC: M PAIN 10:00
DX: G89.29 Other chronic pain (principal); M51.17 Intervertebral disc disorders with radiculopathy, lumbosacral region; F17.210 Nicotine dependence, cigarettes, uncomplicated; Z88.6 Allergy status to analgesic agent; Z88.8 Allergy status to other drugs, medicaments and biological substances; Z79.891 Long term (current) use of opiate analgesic
CPT/HCPCS: J1030

== ENCOUNTER → 2017-04-20 | Outpatient (CLI) | payer MEDICARE, MEDICAID | LOC: M PAIN 13:45 | DX: G89.29 Other chronic pain (principal); M51.17 Intervertebral disc disorders with radiculopathy, lumbosacral region; Z88.6 Allergy status to analgesic agent; Z88.8 Allergy status to other drugs, medicaments and biological substances; Z79.891 Long term (current) use of opiate analgesic; Z79.899 Other long term (current) drug therapy | CPT/HCPCS: G0463 ==

== ENCOUNTER → 2017-05-05 | Outpatient (CLI) | payer MEDICARE, MEDICAID | LOC: M PAIN 13:00 | DX: M51.17 Intervertebral disc disorders with radiculopathy, lumbosacral region (principal); G89.29 Other chronic pain; F17.210 Nicotine dependence, cigarettes, uncomplicated; Z79.891 Long term (current) use of opiate analgesic | CPT/HCPCS: G0463 ==

== ENCOUNTER → 2017-05-11 | Outpatient (REF) | payer MEDICARE, MEDICAID ==
[2017-05-11 15:35] LABS: BASO % 0.7 % (0.0-1.0); EOS # 0.1 10^3/uL (0.0-0.50); EOS % 1.2 % (0.0-3.0); HEMATOCRIT 42.9 % (36.0-47.0); HEMOGLOBIN 14.6 g/dl (12.0-16.0); IMMATURE GRANULOCYTE % 0.2 % (0-0); LYMPH # 1.8 10^3/uL (1.5-4.5); LYMPH % 30.3 % (24.0-44.0); MEAN CORPUSCULAR HEMOGLOBIN 33.1 pg (27.0-33.0); MEAN CORPUSCULAR VOLUME 97.3 fl (80.0-96.0); MONO # 0.4 10^3/uL (0.0-0.8); MONO % 6.3 % (0.0-5.0); NEUTROPHILS # 3.6 10^3/uL (1.8-7.7); NEUTROPHILS % 61.3 % (36.0-66.0); PLATELET COUNT, AUTOMATED 257 10^3/uL (150-450); RED BLOOD COUNT 4.41 10^6/uL (4.00-5.40); RED CELL DISTRIBUTION WIDTH 11.8 % (11.5-14.5); WHITE BLOOD COUNT 5.9 10^3/uL (4.0-10.0)
[2017-05-11 15:48] LABS: INR 0.92; PROTHROMBIN TIME 12.4 SECONDS (12.4-14.5)
[2017-05-11 15:49] LABS: PARTIAL THROMBOPLASTIN TIME 31.9 SECONDS (26.8-37.9)
[2017-05-11 16:05] LABS: ALBUMIN/GLOBULIN RATIO 1.29 (1.00-1.93); ALKALINE PHOSPHATASE 65 U/L (45-117); ALT/SGPT 19 U/L (12-78); ANION GAP 5 MEQ/L (8-16); AST/SGOT 9 U/L (7-37); BILIRUBIN,TOTAL 0.4 MG/DL (0.2-1.0); BLOOD UREA NITROGEN 16 MG/DL (7-18); CALCIUM LEVEL 8.6 MG/DL (8.5-10.1); CARBON DIOXIDE LEVEL 30 MEQ/L (21-32); CHLORIDE LEVEL 106 MEQ/L (98-107); CREATININE FOR GFR 0.75 MG/DL (0.55-1.02); GLOMERULAR FILTRATION RATE > 60.0 (>58); GLUCOSE, FASTING 92 MG/DL (70-105); POTASSIUM SERUM 3.9 MEQ/L (3.5-5.1); SODIUM LEVEL 141 MEQ/L (136-145); TOTAL PROTEIN 7.1 GM/DL (6.4-8.2)
== END ==
LOC: M LABDRAW1 15:23
DX: Z01.818 Encounter for other preprocedural examination (principal); Z79.01 Long term (current) use of anticoagulants
CPT/HCPCS: 80053

== ENCOUNTER → 2017-05-12 | Outpatient (CLI) | payer MEDICARE, MEDICAID | LOC: M PAIN 13:15 | DX: G89.29 Other chronic pain (principal); M51.17 Intervertebral disc disorders with radiculopathy, lumbosacral region; M96.1 Postlaminectomy syndrome, not elsewhere classified; F17.210 Nicotine dependence, cigarettes, uncomplicated; Z88.0 Allergy status to penicillin; Z88.1 Allergy status to other antibiotic agents; Z88.6 Allergy status to analgesic agent; Z88.8 Allergy status to other drugs, medicaments and biological substances; Z79.891 Long term (current) use of opiate analgesic; Z79.899 Other long term (current) drug therapy | CPT/HCPCS: G0463 ==

== ENCOUNTER 2017-05-29 10:00 | Day surgery (SDC) | payer MEDICARE, MEDICAID ==
[~2017-05-29 10:00] MED LIST changes: -ISOVUE-M 300 61% 15ML VIAL (Q9967) As Ordered; +LIDOCAINE 1% MDV 20ML VIAL SQ; -LIDOCAINE 1% SDV INJ 30 ML VIAL As Ordered; -methylPREDNISolone SUSP 40 MG/ML (DEPO-medrol) VIAL (J1030) As Ordered
[2017-05-29] MEDS: LR 1,000 ML IV ×6 (10:00→17:30)
[2017-05-29] MEDS ORDERED: LIDOCAINE 2% INJ 100 MG/5 ML SDV (FOR ANES.) As Ordered ×3 (10:18)
[2017-05-29] MEDS ORDERED: PROPOFOL 200 MG/20 ML VIAL As Ordered ×3 (10:18)
[2017-05-29] MEDS ORDERED: fentaNYL 250 MCG/5 ML INJECTION (J3010) As Ordered ×3 (10:18)
[2017-05-29] MEDS ORDERED: MIDAZOLAM INJ 5 MG/ML VIAL (J2250) As Ordered ×3 (10:19)
[2017-05-29] MEDS ORDERED: LABETALOL HCL 100 MG/20 ML VIAL As Ordered ×3 (10:38)
[2017-05-29 10:43] LABS: CONTROL LINE UCG INT CTR LINE PRESENT; URINE PREG TEST NEGATIVE (NEGATIVE)
[2017-05-29] MEDS: BUPIVACAINE HCL 0.25% 30 ML VIAL As Ordered ×3 (13:46)
[2017-05-29] MEDS: ISOVUE-300 61% 50ML VIAL (Q9967) As Ordered ×3 (13:46)
[2017-05-29] MEDS: CLINDAMYCIN 600 MG in APPROPRIATE DILUENT 1 EA IV ×6 (14:15→23:55)
[2017-05-29] MEDS: LIDOCAINE W/EPINEPHRINE 1% 20ML VIAL As Ordered ×3 (16:09)
[2017-05-29] MEDS ORDERED: MORPHINE 10 MG/ML 1ML VIAL (J2270) As Ordered ×3 (16:42)
[2017-05-29] MEDS: MORPHINE 10 MG/ML 1ML VIAL (J2270) IV ×12 (16:50→17:10)
[2017-05-29] MEDS ORDERED: ONDANSETRON 4MG/2ML VIAL (J2405) IV ×6 (17:00→18:15)
[2017-05-29] MEDS ORDERED: PERCOCET 5MG/325MG TAB PO ×3 (17:00)
[2017-05-29] MEDS ORDERED: MORPHINE 30 MG TAB **MSIR PO ×9 (17:15→19:15)
[2017-05-29] MEDS ORDERED: BISACODYL 5 MG TAB PO ×3 (18:15)
[2017-05-29] MEDS: MORPHINE 30 MG TAB **MSIR PO ×3 (18:42)
[2017-05-29 18:51] LABS: BASO % 0.4 % (0.0-1.0); EOS # 0.1 10^3/uL (0.0-0.50); EOS % 0.9 % (0.0-3.0); HEMOGLOBIN 14.1 g/dl (12.0-16.0); IMMATURE GRANULOCYTE % 0.3 % (0-0); LYMPH # 2.3 10^3/uL (1.5-4.5); LYMPH % 34.4 % (24.0-44.0); MEAN CORPUSCULAR HEMOGLOBIN 32.6 pg (27.0-33.0); MEAN CORPUSCULAR HGB CONC 34.4 g/dl (32.0-36.5); MEAN CORPUSCULAR VOLUME 94.9 fl (80.0-96.0); MONO # 0.5 10^3/uL (0.0-0.8); MONO % 6.9 % (0.0-5.0); NEUTROPHILS # 3.9 10^3/uL (1.8-7.7); NEUTROPHILS % 57.1 % (36.0-66.0); PLATELET COUNT, AUTOMATED 234 10^3/uL (150-450); RED BLOOD COUNT 4.32 10^6/uL (4.00-5.40); RED CELL DISTRIBUTION WIDTH 11.9 % (11.5-14.5); WHITE BLOOD COUNT 6.8 10^3/uL (4.0-10.0)
[2017-05-29] MEDS: NS 1,000 ML IV ×3 (19:00)
[2017-05-29 19:17] LABS: ANION GAP 5 MEQ/L (8-16); BLOOD UREA NITROGEN 12 MG/DL (7-18); CALCIUM LEVEL 8.4 MG/DL (8.5-10.1); CARBON DIOXIDE LEVEL 29 MEQ/L (21-32); CHLORIDE LEVEL 105 MEQ/L (98-107); CREATININE FOR GFR 0.72 MG/DL (0.55-1.30); GLOMERULAR FILTRATION RATE > 60.0 (>58); GLUCOSE, FASTING 82 MG/DL (70-100); POTASSIUM SERUM 3.8 MEQ/L (3.5-5.1); SODIUM LEVEL 139 MEQ/L (136-145)
[2017-05-29] MEDS: SENOKOT S TAB PO ×3 (20:34)
[2017-05-30] MEDS: MORPHINE 30 MG TAB **MSIR PO ×6 (00:06→06:21)
[2017-05-30] MEDS: CLINDAMYCIN 600 MG in APPROPRIATE DILUENT 1 EA IV ×3 (06:12)
[2017-05-30 07:31] LABS: BASO % 0.4 % (0.0-1.0); EOS # 0.1 10^3/uL (0.0-0.50); EOS % 1.2 % (0.0-3.0); HEMATOCRIT 40.9 % (36.0-47.0); HEMOGLOBIN 14.2 g/dl (12.0-16.0); IMMATURE GRANULOCYTE % 0.2 % (0-0); LYMPH # 1.9 10^3/uL (1.5-4.5); LYMPH % 23.3 % (24.0-44.0); MEAN CORPUSCULAR HEMOGLOBIN 33.3 pg (27.0-33.0); MEAN CORPUSCULAR HGB CONC 34.7 g/dl (32.0-36.5); MONO # 0.7 10^3/uL (0.0-0.8); MONO % 8.7 % (0.0-5.0); NEUTROPHILS # 5.4 10^3/uL (1.8-7.7); NEUTROPHILS % 66.2 % (36.0-66.0); PLATELET COUNT, AUTOMATED 222 10^3/uL (150-450); RED BLOOD COUNT 4.26 10^6/uL (4.00-5.40); WHITE BLOOD COUNT 8.1 10^3/uL (4.0-10.0)
[2017-05-30 07:43] LABS: ANION GAP 5 MEQ/L (8-16); BLOOD UREA NITROGEN 12 MG/DL (7-18); CALCIUM LEVEL 8.5 MG/DL (8.5-10.1); CARBON DIOXIDE LEVEL 31 MEQ/L (21-32); CHLORIDE LEVEL 103 MEQ/L (98-107); CREATININE FOR GFR 0.76 MG/DL (0.55-1.30); GLOMERULAR FILTRATION RATE > 60.0 (>58); GLUCOSE, FASTING 104 MG/DL (70-100); POTASSIUM SERUM 4.1 MEQ/L (3.5-5.1); SODIUM LEVEL 139 MEQ/L (136-145)
[2017-05-30] MEDS: SENOKOT S TAB PO ×3 (08:45)
== END 2017-05-30 10:00 | disposition home or self-care (01) ==
LOC: M SDC 10:00 → M PED 17:30
DX: M96.1 Postlaminectomy syndrome, not elsewhere classified (principal); M54.16 Radiculopathy, lumbar region; K21.9 Gastro-esophageal reflux disease without esophagitis; F17.210 Nicotine dependence, cigarettes, uncomplicated; Z79.899 Other long term (current) drug therapy; Z88.8 Allergy status to other drugs, medicaments and biological substances; Z88.6 Allergy status to analgesic agent
CPT/HCPCS: 63650

== ENCOUNTER → 2017-05-30 | Outpatient (CLI) | payer MEDICARE, MEDICAID | LOC: M PAIN 10:15 | DX: M96.1 Postlaminectomy syndrome, not elsewhere classified (principal); Z79.891 Long term (current) use of opiate analgesic; Z79.899 Other long term (current) drug therapy; Z88.0 Allergy status to penicillin; Z88.1 Allergy status to other antibiotic agents; Z88.6 Allergy status to analgesic agent; Z88.8 Allergy status to other drugs, medicaments and biological substances | CPT/HCPCS: G0463 ==

== ENCOUNTER → 2017-06-02 | Outpatient (CLI) | payer MEDICARE, MEDICAID | LOC: M PAIN 10:30 | DX: M96.1 Postlaminectomy syndrome, not elsewhere classified (principal); M51.17 Intervertebral disc disorders with radiculopathy, lumbosacral region; F17.210 Nicotine dependence, cigarettes, uncomplicated; Z79.899 Other long term (current) drug therapy; Z88.0 Allergy status to penicillin; Z88.1 Allergy status to other antibiotic agents; Z88.5 Allergy status to narcotic agent; Z88.8 Allergy status to other drugs, medicaments and biological substances | CPT/HCPCS: G0463 ==

== ENCOUNTER → 2017-06-20 | Outpatient (CLI) | payer MEDICARE, MEDICAID | LOC: M PAIN 15:45 | DX: M96.1 Postlaminectomy syndrome, not elsewhere classified (principal); M51.17 Intervertebral disc disorders with radiculopathy, lumbosacral region; G89.29 Other chronic pain; F17.210 Nicotine dependence, cigarettes, uncomplicated; Z79.899 Other long term (current) drug therapy; Z88.0 Allergy status to penicillin; Z88.8 Allergy status to other drugs, medicaments and biological substances | CPT/HCPCS: G0463 ==

== ENCOUNTER 2017-06-26 06:11 | Day surgery (SDC) | payer MEDICARE, MEDICAID ==
[2017-06-26] MEDS ORDERED: LIDOCAINE 1% MDV 20ML VIAL SQ (06:30)
[2017-06-26] MEDS: LR 1,000 ML IV ×2 (07:00→12:44)
[2017-06-26] MEDS: THROMBIN SOLN 20,000 UNITS KIT As Ordered ×2 (07:05→10:16)
[2017-06-26] MEDS ORDERED: PROPOFOL 200 MG/20 ML VIAL As Ordered ×2 (07:14→07:46)
[2017-06-26] MEDS ORDERED: ROCURONIUM BROMIDE 50 MG/5 ML VIAL As Ordered (07:14)
[2017-06-26] MEDS ORDERED: LIDOCAINE 2% INJ 100 MG/5 ML SDV (FOR ANES.) As Ordered (07:14)
[2017-06-26] MEDS ORDERED: fentaNYL 100 MCG/2 ML INJECTION (J3010) As Ordered (07:15)
[2017-06-26] MEDS ORDERED: MIDAZOLAM INJ 2 MG/2 ML VIAL (J2250) As Ordered ×3 (07:15→09:10)
[2017-06-26] MEDS: CLINDAMYCIN 600 MG in APPROPRIATE DILUENT 1 EA IV ×3 (07:35→23:40)
[2017-06-26 08:15] LABS: CONTROL LINE UCG INT CTR LINE PRESENT; URINE PREG TEST NEGATIVE (NEGATIVE)
[2017-06-26] MEDS: BACITRACIN PWD 50,000 UNITS VIAL As Ordered (08:34)
[2017-06-26] MEDS: LIDOCAINE W/EPINEPHRINE 1% 20ML VIAL As Ordered ×2 (08:35→10:35)
[2017-06-26] MEDS: CLINDAMYCIN INJ 900MG/6ML VIAL As Ordered (09:10)
[2017-06-26] MEDS ORDERED: KETAMINE HCL 200 MG/20 ML VIAL As Ordered (10:27)
[2017-06-26] MEDS ORDERED: MORPHINE 10 MG/ML 1ML VIAL (J2270) As Ordered (13:05)
[2017-06-26] MEDS: MORPHINE 10 MG/ML 1ML VIAL (J2270) IV ×4 (13:15→13:40)
[2017-06-26] MEDS ORDERED: ONDANSETRON 4MG/2ML VIAL (J2405) IV (13:15)
[2017-06-26] MEDS: MORPHINE 30 MG TAB **MSIR PO ×2 (16:34→21:33)
[2017-06-27] MEDS: MORPHINE 30 MG TAB **MSIR PO (05:19)
[2017-06-27] MEDS: ONDANSETRON 4MG/2ML VIAL (J2405) IV (05:57)
== END 2017-06-27 09:14 | disposition home or self-care (01) ==
LOC: M SDC 06:11 → M MSPAV 14:15
DX: M96.1 Postlaminectomy syndrome, not elsewhere classified (principal); M51.16 Intervertebral disc disorders with radiculopathy, lumbar region; K21.9 Gastro-esophageal reflux disease without esophagitis; Z88.0 Allergy status to penicillin; Z88.6 Allergy status to analgesic agent; Z88.8 Allergy status to other drugs, medicaments and biological substances; Z79.891 Long term (current) use of opiate analgesic; Z72.0 Tobacco use
CPT/HCPCS: 63685

== ENCOUNTER → 2017-07-04 | Outpatient (CLI) | payer MEDICARE, MEDICAID | LOC: M PAIN 15:00 | DX: M96.1 Postlaminectomy syndrome, not elsewhere classified (principal); M51.17 Intervertebral disc disorders with radiculopathy, lumbosacral region; F17.210 Nicotine dependence, cigarettes, uncomplicated; Z79.891 Long term (current) use of opiate analgesic; Z79.899 Other long term (current) drug therapy; Z88.0 Allergy status to penicillin; Z88.1 Allergy status to other antibiotic agents; Z88.6 Allergy status to analgesic agent; Z88.8 Allergy status to other drugs, medicaments and biological substances | CPT/HCPCS: G0463 ==

== ENCOUNTER → 2017-07-07 | Outpatient (CLI) | payer MEDICARE, MEDICAID | LOC: M PAIN 15:00 | DX: M96.1 Postlaminectomy syndrome, not elsewhere classified (principal); M51.17 Intervertebral disc disorders with radiculopathy, lumbosacral region; G89.29 Other chronic pain; F17.210 Nicotine dependence, cigarettes, uncomplicated; Z79.891 Long term (current) use of opiate analgesic; Z79.899 Other long term (current) drug therapy; Z88.0 Allergy status to penicillin; Z88.1 Allergy status to other antibiotic agents; Z88.8 Allergy status to other drugs, medicaments and biological substances; Z88.6 Allergy status to analgesic agent | CPT/HCPCS: G0463 ==

== ENCOUNTER → 2017-07-19 | Outpatient (CLI) | payer MEDICARE, MEDICAID | LOC: M PAIN 15:15 | DX: M96.1 Postlaminectomy syndrome, not elsewhere classified (principal); M51.17 Intervertebral disc disorders with radiculopathy, lumbosacral region; G89.29 Other chronic pain; Z79.891 Long term (current) use of opiate analgesic; Z79.899 Other long term (current) drug therapy; Z88.0 Allergy status to penicillin; Z88.1 Allergy status to other antibiotic agents; Z88.6 Allergy status to analgesic agent; Z88.8 Allergy status to other drugs, medicaments and biological substances | CPT/HCPCS: G0463 ==

== ENCOUNTER → 2017-07-31 | Outpatient (CLI) | payer MEDICARE, MEDICAID | LOC: M PAIN 15:45 | DX: M96.1 Postlaminectomy syndrome, not elsewhere classified (principal); M51.17 Intervertebral disc disorders with radiculopathy, lumbosacral region; F17.210 Nicotine dependence, cigarettes, uncomplicated; Z79.891 Long term (current) use of opiate analgesic; Z79.899 Other long term (current) drug therapy; Z88.0 Allergy status to penicillin; Z88.1 Allergy status to other antibiotic agents; Z88.6 Allergy status to analgesic agent; Z88.8 Allergy status to other drugs, medicaments and biological substances | CPT/HCPCS: G0463 ==

== ENCOUNTER → 2017-08-07 | Outpatient (CLI) | payer MEDICARE, MEDICAID | END | disposition home or self-care (01) | LOC: M PAIN 15:00 | DX: G89.29 Other chronic pain (principal); M51.17 Intervertebral disc disorders with radiculopathy, lumbosacral region; Z96.89 Presence of other specified functional implants; Z88.0 Allergy status to penicillin; Z88.2 Allergy status to sulfonamides; Z88.8 Allergy status to other drugs, medicaments and biological substances; F17.210 Nicotine dependence, cigarettes, uncomplicated | CPT/HCPCS: G0463 ==

== ENCOUNTER → 2017-09-05 | Outpatient (CLI) | payer MEDICARE | LOC: M PAIN 14:00 | DX: M51.17 Intervertebral disc disorders with radiculopathy, lumbosacral region (principal); G89.29 Other chronic pain; F17.210 Nicotine dependence, cigarettes, uncomplicated; Z79.891 Long term (current) use of opiate analgesic; Z79.899 Other long term (current) drug therapy; Z88.0 Allergy status to penicillin; Z88.6 Allergy status to analgesic agent; Z88.8 Allergy status to other drugs, medicaments and biological substances | CPT/HCPCS: G0463 ==

== ENCOUNTER → 2017-11-17 | Outpatient (CLI) | payer MEDICARE | LOC: M PAIN 13:00 | DX: M51.17 Intervertebral disc disorders with radiculopathy, lumbosacral region (principal); G89.29 Other chronic pain; F17.210 Nicotine dependence, cigarettes, uncomplicated; Z79.899 Other long term (current) drug therapy; Z88.0 Allergy status to penicillin; Z88.1 Allergy status to other antibiotic agents; Z88.6 Allergy status to analgesic agent; Z88.8 Allergy status to other drugs, medicaments and biological substances | CPT/HCPCS: G0463 ==

== ENCOUNTER → 2018-01-11 | Outpatient (CLI) | payer MEDICARE | LOC: M PAIN 09:15 | DX: M51.17 Intervertebral disc disorders with radiculopathy, lumbosacral region (principal); M96.1 Postlaminectomy syndrome, not elsewhere classified; F17.210 Nicotine dependence, cigarettes, uncomplicated; Z79.899 Other long term (current) drug therapy; Z88.0 Allergy status to penicillin; Z88.1 Allergy status to other antibiotic agents; Z88.6 Allergy status to analgesic agent; Z88.8 Allergy status to other drugs, medicaments and biological substances | CPT/HCPCS: G0463 ==

== ENCOUNTER → 2018-02-13 | Outpatient (REF) | payer MEDICARE, MEDICAID ==
[2018-02-13 14:13] LABS: APPEARANCE, URINE HAZY (CLEAR); BACTERIA, URINE AUTO 2+ (NEGATIVE); BILIRUBIN, URINE AUTO NEGATIVE (NEGATIVE); BLOOD, URINE BLOOD 1+ (NEGATIVE); COLOR, URINE YELLOW (YELLOW); GLUCOSE, URINE (UA) AUTO NEGATIVE (NEGATIVE); KETONE, URINE AUTO NEGATIVE (NEGATIVE); LEUKOCYTE ESTERASE, URINE AUTO NEGATIVE (NEGATIVE); MUCUS, URINE SMALL (NEGATIVE); NITRITE, URINE AUTO NEGATIVE (NEGATIVE); PROTEIN, URINE AUTO NEGATIVE (NEGATIVE); RBC, URINE AUTO 2 /HPF (0-3); SPECIFIC GRAVITY URINE AUTO 1.019 (1.002-1.035); SQUAMOUS EPITHELIAL CELL UR AU 2 /HPF (0-6); UROBILINOGEN, URINE AUTO 0.2 mg/dL (0.0-2.0); WBC, URINE AUTO 19 /HPF (0-3)
== END ==
LOC: M LAB REF 13:44
DX: N39.0 Urinary tract infection, site not specified (principal)
CPT/HCPCS: 81001

== ENCOUNTER → 2018-03-13 | Outpatient (REF) | payer MEDICARE, MEDICAID ==
[2018-03-13 15:43] LABS: APPEARANCE, URINE CLEAR (CLEAR); BACTERIA, URINE AUTO NEGATIVE (NEGATIVE); BILIRUBIN, URINE AUTO NEGATIVE (NEGATIVE); BLOOD, URINE BLOOD NEGATIVE (NEGATIVE); COLOR, URINE COLORLESS (YELLOW); GLUCOSE, URINE (UA) AUTO NEGATIVE (NEGATIVE); KETONE, URINE AUTO NEGATIVE (NEGATIVE); LEUKOCYTE ESTERASE, URINE AUTO NEGATIVE (NEGATIVE); NITRITE, URINE AUTO NEGATIVE (NEGATIVE); PROTEIN, URINE AUTO NEGATIVE (NEGATIVE); RBC, URINE AUTO 0 /HPF (0-3); SPECIFIC GRAVITY URINE AUTO 1.002 (1.002-1.035); SQUAMOUS EPITHELIAL CELL UR AU 1 /HPF (0-6); UROBILINOGEN, URINE AUTO 0.2 mg/dL (0.0-2.0); WBC, URINE AUTO 1 /HPF (0-3)
== END ==
LOC: M LAB REF 15:30
DX: N39.0 Urinary tract infection, site not specified (principal)
CPT/HCPCS: 81001

== ENCOUNTER → 2018-03-29 | Outpatient (REF) | payer MEDICARE, MEDICAID ==
[2018-03-29 18:00] LABS: APPEARANCE, URINE CLEAR (CLEAR); BACTERIA, URINE AUTO NEGATIVE (NEGATIVE); BILIRUBIN, URINE AUTO NEGATIVE (NEGATIVE); BLOOD, URINE BLOOD 1+ (NEGATIVE); COLOR, URINE YELLOW (YELLOW); GLUCOSE, URINE (UA) AUTO NEGATIVE (NEGATIVE); KETONE, URINE AUTO TRACE mg/dL (NEGATIVE); LEUKOCYTE ESTERASE, URINE AUTO NEGATIVE (NEGATIVE); MUCUS, URINE SMALL (NEGATIVE); NITRITE, URINE AUTO NEGATIVE (NEGATIVE); PROTEIN, URINE AUTO NEGATIVE (NEGATIVE); RBC, URINE AUTO 2 /HPF (0-3); SPECIFIC GRAVITY URINE AUTO 1.017 (1.002-1.035); SQUAMOUS EPITHELIAL CELL UR AU 1 /HPF (0-6); UROBILINOGEN, URINE AUTO 0.2 mg/dL (0.0-2.0); WBC, URINE AUTO 1 /HPF (0-3)
== END ==
LOC: M LAB REF 16:22
DX: N39.0 Urinary tract infection, site not specified (principal)
CPT/HCPCS: 81001

== ENCOUNTER → 2018-05-09 | Outpatient (REF) | payer MEDICARE, MEDICAID ==
[~2018-05-09] MED LIST changes: +ADULCHW2 PO; +CLOT10TR; +DRAM50CH4 PO; -LIDOCAINE 1% MDV 20ML VIAL SQ; +MORP-38 PO; +MORP15TA2 PO; +NAPR-885 PO
[2018-05-09 16:34] LABS: INFLUENZA A AMPLIFICATION NEGATIVE (NEGATIVE); INFLUENZA B AMPLIFICATION NEGATIVE (NEGATIVE)
== END ==
LOC: M LAB REF 15:10
PROVIDERS: ATTEND Physician Assistant
DX: J11.1 Influenza due to unidentified influenza virus with other respiratory manifestations (principal)

== ENCOUNTER → 2018-05-14 | Outpatient (CLI) | payer MEDICARE ==
--- NOTE | 2018-05-30 01:20 | ECWPNPC ---
PATIENT NAME: SAEED MCLEOD : 1975 GENDER: FEMALE VISIT DATE: 05/14/2018 DISCHARGE DATE: 05/14/18 1352 VISIT LOCKED DATE TIME: PHYSICIAN: SAWYER CASE RESOURCE: SAWYER CASE HISTORY OF PRESENT ILLNESS HISTORY OF PRESENT ILLNESS: HERE FOR F/U OF CHRONIC LOW BACK PAIN AND BILATERAL LEG PAIN .HAS DCS THAT SHE FEELS WORKS WELL FOR LOW BACK PAIN.SHE IS HAVING TERRIBLE NIGHTTIME PAIN FROM KNEES TO AND INCLUDING FEET BILATERALLY.DESCRIBES PAIN TRAVELING AND BURNING.PAIN IS DISRUPTING HER SLEEP.SHE DOESNT FEEL ITS NERVE PAIN.SHE WOULD LIKE TO DISCUSS WITH DR. LONGO. PAIN THE PATIENT DESCRIBES THE PAIN... FALL RISK SCREENING: SCREENING :NO FALLS IN THE PAST YEAR CURRENT MEDICATIONS TAKING ENERGY FOCUS 1 GUMMIE ORALLY TAKES 1 GUMMIE VITAMIN B12 DAILY TAKING DRAMAMINE 50 MG TABLET 1 TABLET NEEDED ORALLY EVERY 6 HRS NOT-TAKING NAPROXEN 500 MG TABLET 1 TABLET NEEDED ORALLY EVERY 12 HRS NOT-TAKING MORPHINE SULFATE 15 MG TABLET 1 ORALLY BID MDD2, NOTES: TAKES 1/2 TAB PRN NOT-TAKING CLONIDINE HCL 0.1 MG TABLET 1 TABLET ORALLY Q8H NOT-TAKING CLONIDINE HCL 0.1 MG TABLET 1 TAB ORALLY AM AND PM NOT-TAKING TYLENOL 325 MG TABLET 1 TABLET NEEDED ORALLY EVERY 4 HRS NEEDED MEDICATION LIST REVIEWED AND RECONCILED WITH THE PATIENT PAST MEDICAL HISTORY CHRONIC BACK PAIN EMG SHOWS MILD, CHRONIC L S1 AND POSSIBLY L5 RADICULOPATHY; MILD CHRONIC R L5 RADICULOPATHY (08/2015) DCS ALLERGIES ASPIRIN: SWELLING : ALLERGY GABAPENTIN: "FELT YUCKY": SIDE EFFECTS LYRICA: FELT YUCKY": SIDE EFFECTS PENICILLIN (FOR ALLERGIES USE ONLY): SEVERE YEAST INFECTION: ALLERGY AMOXICILLIN: SEVERE YEAST INFECTION: ALLERGY SURGICAL HISTORY LAMINECTOMY 1998 BACK SURGERY AGAIN 1998 DIAGNOSTIC LAPARASCOPY WITH ENDOMETRIOSIS ABLATION (NANDA) 2003 (?) DCS 06/26/17 PERMANENT DCS PLACEMENT 07/2017 FAMILY HISTORY FATHER: , [place] MOTHER: ALIVE SIBLINGS: ALIVE SON(S): ALIVE 2 BROTHER(S) , 1 SISTER(S) - HEALTHY. 2 SON(S) - HEALTHY. SOCIAL HISTORY GENERAL: TOBACCO USE ARE YOU A:CURRENT SMOKER ARE YOU INTERESTED IN QUITTING?NOT READY TO QUIT COUNSELED THE PATIENT ON SMOKING EFFECTS, EDUCATION [id number]/13/2018 HOW MANY CIGARETTES A DAY DO YOU SMOKE?6-10 HOW SOON AFTER YOU WAKE UP DO YOU SMOKE YOUR FIRST CIGARETTE?AFTER 60 MIN HOW OFTEN DO YOU SMOKE CIGARETTES?EVERY DAY PATIENT COUNSELED ON THE DANGERS OF TOBACCO USE AND URGED TO QUIT:01/11/2018 SMOKING CESSATION INFORMATION GIVEN05/14/2018 ALCOHOL SCREENING DID YOU HAVE A DRINK CONTAINING ALCOHOL IN THE PAST YEAR?NO POINTS0 INTERPRETATIONNEGATIVE RECREATIONAL DRUG USE DRUG USE?NO CAFFEINE CAFFEINE USE?YES SEXUAL HX HAD SEX IN THE LAST 12 MONTHS (VAGINAL, ORAL, OR ANAL)?YES HIV / HEP-C SCREENING HIV TEST OFFERED TO PATIENT:YES DATE OFFERED:12/20/2016 TEST ACCEPTED:YES CATHOLIC CATHOLIC NO CONGREGATIONAL BELIEFS THAT WOULD IMPACT HEALTH CARE. LANGUAGE LANGUAGES SPOKEN:SINHALA EDUCATION LEVEL OF EDUCATION:HIGH SCHOOL LEARNING BARRIERS / SPECIAL NEEDS CHANGE FROM LAST VISIT?YES BARRIERS TO LEARNING?NO HEARING IMPAIRED?NO VISION IMPAIRED?NO COGNITIVELY IMPAIRED?NO READINESS TO LEARN?YES LEARNING PREFERENCES?NO LEARNING CAPABILITIES PRESENT?YES EMOTIONAL BARRIERS?NO SPECIAL DEVICES?NO FILM READER NEEDED?NO DOMESTIC VIOLENCE DO YOU FEEL SAFE IN YOUR ENVIRONMENT?YES OCCUPATION: UNEMPLOYED. DIET: REGULAR. EXERCISE: NO REGULAR EXERCISE. MARITAL STATUS: SINGLE. OTHERS AT HOME: CHILDREN. NEW PATIENT PAIN DIARY FROM 0-10, WHAT LEVEL IS YOUR PAIN TODAY?7 PAIN CLINIC PFS, CLERGY, PUBLIC HEALTH REFERRALS PFS REFERRAL NEEDED?NO CLERGY REFERRAL NEEDED?NO PUBLIC HEALTH REFERRAL NEEDED?NO WAS THE PROVIDER NOTIFIED OF ANY PERTINENT INFO?YES HAS THE PATIENT BEEN EDUCATED REGARDING HIS/HER PLAN OF CARE?YES HAS THE PATIENT BEEN EDUCATED REGARDING PAIN, THE RISK FOR PAIN, THE IMPORTANCE OF EFFECTIVE PAIN MANAGEMENT, AND THE PAIN ASSESSMENT PROCESS?YES ADVANCE DIRECTIVE ADVANCE DIRECTIVE DISCUSSED WITH PATIENT:YES NO ADVANCED DIRECTIVES, DECLINES INFORMATION AT THIS TIME GAVE QUIT SMOKING INFO 11/17/17REVIEWED WITH PT, 01/11/18 0956 LAS. HOSPITALIZATION/MAJOR DIAGNOSTIC PROCEDURE NO HOSPITALIZATION HISTORY. REVIEW OF SYSTEMS REVIEWED BY: PROVIDER: SAWYER BARAJAS . CONSTITUTIONAL: ANY CHANGE IN YOUR MEDICAL CONDITION? NO . CHILLS NO . FEVER NO . INFECTION: DO YOU HAVE NEW INFECTIONS? NO . DO YOU HAVE HISTORY OF MRSA? NO . MUSCULOSKELETAL: ANY NEW PATTERNS OF PAIN OR NUMBNESS? YES . GASTROENTEROLOGY: ANY NEW CHANGE IN BOWEL CONTROL? NO . GENITOURINARY: ANY NEW CHANGE IN BLADDER CONTROL? NO . IS THERE A CHANCE YOU COULD BE ? NO . HEMATOLOGY/LYMPH: DO YOU TAKE ANY BLOOD THINNERS? (FOR EXAMPLE- COUMADIN, PLAVIX, AGGRENOX, PLATEL, PRADAXA, OR XARELTO) NO . WHEN WAS YOUR LAST DOSE? DATE: TIME: . NEUROLOGY: HAVE YOU FALLEN IN THE PAST 6 MONTHS? NO . ANY NEW EXTREMITY NUMBNESS OR WEAKNESS? NO . CARDIOLOGY: DO YOU HAVE A PACEMAKER OR DEFIBRILLATOR? NO . RESPIRATORY: HAVE YOU BEEN SICK IN THE PAST WEEK? YES, . FEVER NO . FLU LIKE SYMPTOMS? NO . COUGH NO . INTEGUMENTARY: DO YOU HAVE ANY RASHES OR OPEN SORES? NO . ALLERGIC/IMMUNO: ARE YOU ALLERGIC TO SHELLFISH OR IV DYE? NO . ANY NEW ALLERGIES? NO . PSYCHIATRIC: DO YOU HAVE THOUGHTS OF HURTING YOURSELF OR SOMEONE ELSE? NO . ARE YOU ABUSED, NEGLECTED, OR IN AN UNSAFE ENVIRONMENT? NO . ENDOCRINOLOGY: ARE YOU DIABETIC? NO . OTHER: DO YOU NEED ANY PRESCRIPTIONS? NO . IF YES, PLEASE LIST: ____ . ANY NEW PROBLEMS WITH YOUR MEDICATIONS? NO . WHEN DID YOU LAST EAT? ____ . WHEN DID YOU LAST DRINK? ____ . WHAT DID YOU LAST DRINK? ____ . NAME OF PERSON DRIVING YOU HOME? ____ . DO YOU HAVE ANY OTHER QUESTIONS OR CONCERNS PT IS A CURRENT SMOKER, REFUSING SMOKING CESSATION COUSELING . VITAL SIGNS WT 111.4 LBS, HT 64 IN, BMI 19.12 INDEX, BP 142/78 MM HG, HR 72 /MIN, RR 16 /MIN, TEMP 98.4 F, OXYGEN SAT % 99%, SAFE IN ENV? (Y/N) Y, NA INITIALS MA 12:41, REVIEWED BY: GILMA. EXAMINATION GENERAL EXAMINATION: GENERAL APPEARANCE:NO ACUTE DISTRESS. PSYCHAFFECT NORMAL. LUNGS:LUNG KAMARA ARE CLEAR TO AUSCULTATION BILATERALLY. GOOD MOVEMENT OF AIR . HEART:S1, S2 IN A REGULAR RATE AND RHYTHM. NO SIGNIFICANT MURMURS, RUBS OR GALLOPS NOTED . 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 PROCEDURE CODES FA211 ESTABILISHED PATIENT [facility] CHARGE DISPOSITION & COMMUNICATION FOLLOW UP F/U DR LONGO PAIN LOWER EXTREMITIES AT NIGHT ELECTRONICALLY SIGNED BY KARL BARRETT ON 05/28/2018 AT 11:20 AM EST DISCLAIMER : THIS IS A VISIT SUMMARY EXTRACTED FROM THE [employer] CHART. IT IS NOT A COPY OF THE [employer] PROGRESS NOTE. RONALDOD
== END ==
LOC: M PAIN 13:00
PROVIDERS: ATTEND Nurse Practitioner Family
DX: M51.17 Intervertebral disc disorders with radiculopathy, lumbosacral region (principal); M96.1 Postlaminectomy syndrome, not elsewhere classified; F17.210 Nicotine dependence, cigarettes, uncomplicated; Z79.899 Other long term (current) drug therapy; Z88.6 Allergy status to analgesic agent; Z88.0 Allergy status to penicillin; Z88.8 Allergy status to other drugs, medicaments and biological substances

== ENCOUNTER → 2018-05-28 | Outpatient (CLI) | payer MEDICARE ==
--- NOTE | 2018-06-11 | ECWPNPC ---
PATIENT NAME: SAEED MCLEOD : 1975 GENDER: FEMALE VISIT DATE: 05/28/2018 DISCHARGE DATE: 05/28/181827 VISIT LOCKED DATE TIME: PHYSICIAN: TYLER LONGO MD RESOURCE: TYLER LONGO MD REASON FOR APPOINTMENT 1. LOW BACK HISTORY OF PRESENT ILLNESS HISTORY OF PRESENT ILLNESS: PAIN THE PATIENT DESCRIBES THE PAIN... 43 YEAR OLD FEMALE PATIENT WITH A HISTORY OF CHRONIC LOW BACK AND LEG PAIN. THE PATIENT DESCRIBES THE PAIN BURNING AND MOSTLY AT NIGHT WITH A PAIN SCORE OF 5-9/10 DEPENDING ON THE TIME OF DAY. THE PATIENT SAYS THAT STARTING IN THE MIDDLE OF SEPTEMBER SHE STARTED EXPERIENCING A BURNING SENSATION FROM HER KNEES DOWN TO HER FEET THAT MAINLY HAPPENS AT NIGHT. THE PATIENT SAYS SHE HAS DIFFICULTY SLEEPING DUE THIS BURNING PAIN. THE PATIENT RECEIVED A DCS IMPLANT IN AUGUST AND STATES THAT SHE HAS NOT BEEN ON MORPHINE SINCE AND IS NOT CURRENTLY USING ANY PAIN MEDICATIONS. THE PATIENT WAS PREVIOUSLY USING LYRICA AND GABAPENTIN, BUT SAYS THAT SHE STOPPED IT DUE TO ADVERSE SIDE EFFECTS THAT INCLUDED DIZZINESS. PATIENT DENIES UNEXPLAINABLE WEIGHT LOSS, FEVER, CHILLS, NEW CHANGES ON HER URINARY OR BOWEL CONTROL. FALL RISK SCREENING: SCREENING :NO FALLS IN THE PAST YEAR CURRENT MEDICATIONS TAKING ENERGY FOCUS 1 GUMMIE ORALLY TAKES 1 GUMMIE VITAMIN B12 DAILY TAKING DRAMAMINE 50 MG TABLET 1 TABLET NEEDED ORALLY EVERY 6 HRS NOT-TAKING ROPINIROLE HCL 0.25 MG TABLET 1 TO 2 ORALLY BEFORE BEDTIME, NOTES: HASN'T STARTED AND NOT SURE IF SHE IS GOING TO NOT-TAKING NAPROXEN 500 MG TABLET 1 TABLET NEEDED ORALLY EVERY 12 HRS NOT-TAKING MORPHINE SULFATE 15 MG TABLET 1 ORALLY BID MDD2, NOTES: TAKES 1/2 TAB PRN NOT-TAKING CLONIDINE HCL 0.1 MG TABLET 1 TABLET ORALLY Q8H NOT-TAKING CLONIDINE HCL 0.1 MG TABLET 1 TAB ORALLY AM AND PM NOT-TAKING TYLENOL 325 MG TABLET 1 TABLET NEEDED ORALLY EVERY 4 HRS NEEDED MEDICATION LIST REVIEWED AND RECONCILED WITH THE PATIENT PAST MEDICAL HISTORY CHRONIC BACK PAIN EMG SHOWS MILD, CHRONIC L S1 AND POSSIBLY L5 RADICULOPATHY; MILD CHRONIC R L5 RADICULOPATHY (08/2015) DCS ALLERGIES ASPIRIN: SWELLING : ALLERGY GABAPENTIN: "FELT YUCKY": SIDE EFFECTS LYRICA: FELT YUCKY": SIDE EFFECTS PENICILLIN (FOR ALLERGIES USE ONLY): SEVERE YEAST INFECTION: SIDE EFFECTS AMOXICILLIN: SEVERE YEAST INFECTION: SIDE EFFECTS SURGICAL HISTORY LAMINECTOMY 1998 BACK SURGERY AGAIN 1998 DIAGNOSTIC LAPARASCOPY WITH ENDOMETRIOSIS ABLATION (NANDA) 2003 (?) DCS 06/26/17 PERMANENT DCS PLACEMENT 07/2017 PNEUMOTHORAX X 4 FAMILY HISTORY FATHER: , OR MOTHER: ALIVE, SKIN CANCER, DIAGNOSED WITH HYPERTENSION, CANCER SIBLINGS: ALIVE SON(S): ALIVE 2 BROTHER(S) , 1 SISTER(S) - HEALTHY. 2 SON(S) - HEALTHY. SOCIAL HISTORY GENERAL: TOBACCO USE ARE YOU A:CURRENT SMOKER ARE YOU INTERESTED IN QUITTING?NOT READY TO QUIT COUNSELED THE PATIENT ON SMOKING EFFECTS, EDUCATION [id number]/28/2019 HOW MANY CIGARETTES A DAY DO YOU SMOKE?6-10 HOW SOON AFTER YOU WAKE UP DO YOU SMOKE YOUR FIRST CIGARETTE?AFTER 60 MIN HOW OFTEN DO YOU SMOKE CIGARETTES?EVERY DAY PATIENT COUNSELED ON THE DANGERS OF TOBACCO USE AND URGED TO QUIT:05/28/2018 SMOKING CESSATION INFORMATION GIVEN05/14/2018 ALCOHOL SCREENING DID YOU HAVE A DRINK CONTAINING ALCOHOL IN THE PAST YEAR?NO POINTS0 INTERPRETATIONNEGATIVE RECREATIONAL DRUG USE DRUG USE?NO CAFFEINE CAFFEINE USE?YES SEXUAL HX HAD SEX IN THE LAST 12 MONTHS (VAGINAL, ORAL, OR ANAL)?YES HIV / HEP-C SCREENING HIV TEST OFFERED TO PATIENT:YES DATE OFFERED:12/20/2016 TEST ACCEPTED:YES HOLINESS [id number] NONE NO AMISH BELIEFS THAT WOULD IMPACT HEALTH CARE. LANGUAGE LANGUAGES SPOKEN:JORDANIAN EDUCATION LEVEL OF EDUCATION:HIGH SCHOOL LEARNING BARRIERS / SPECIAL NEEDS CHANGE FROM LAST VISIT?YES BARRIERS TO LEARNING?NO HEARING IMPAIRED?NO VISION IMPAIRED?NO COGNITIVELY IMPAIRED?NO READINESS TO LEARN?YES LEARNING PREFERENCES?NO LEARNING CAPABILITIES PRESENT?YES EMOTIONAL BARRIERS?NO SPECIAL DEVICES?NO ETL CONSULTANT NEEDED?NO DOMESTIC VIOLENCE DO YOU FEEL SAFE IN YOUR ENVIRONMENT?YES OCCUPATION: UNEMPLOYED. DIET: REGULAR. EXERCISE: NO REGULAR EXERCISE. MARITAL STATUS: SINGLE. OTHERS AT HOME: CHILDREN. PAIN CLINIC PFS, CLERGY, PUBLIC HEALTH REFERRALS PFS REFERRAL NEEDED?NO CLERGY REFERRAL NEEDED?NO PUBLIC HEALTH REFERRAL NEEDED?NO WAS THE PROVIDER NOTIFIED OF ANY PERTINENT INFO? N/A HAS THE PATIENT BEEN EDUCATED REGARDING HIS/HER PLAN OF CARE?YES HAS THE PATIENT BEEN EDUCATED REGARDING PAIN, THE RISK FOR PAIN, THE IMPORTANCE OF EFFECTIVE PAIN MANAGEMENT, AND THE PAIN ASSESSMENT PROCESS?YES ADVANCE DIRECTIVE ADVANCE DIRECTIVE DISCUSSED WITH PATIENT:YES 05/28/18 PT DOES NOT HAVE ANY ADVANCED DIRECTIVES, AND SHE DECLINES INFORMATION ON HCP AT THIS TIME. AD GAVE QUIT SMOKING INFO 11/17/17REVIEWED WITH PT, 01/11/18 0956 LA05/28/18 REVIEWED WITH PT. AD. HOSPITALIZATION/MAJOR DIAGNOSTIC PROCEDURE SURGERIES PNEUMOTHORAX REVIEW OF SYSTEMS REVIEWED BY: PROVIDER: TYLER LONGO MD . CONSTITUTIONAL: ANY CHANGE IN YOUR MEDICAL CONDITION? NO . CHILLS NO . FEVER NO . INFECTION: DO YOU HAVE NEW INFECTIONS? NO . DO YOU HAVE HISTORY OF MRSA? NO . MUSCULOSKELETAL: ANY NEW PATTERNS OF PAIN OR NUMBNESS? NO . GASTROENTEROLOGY: ANY NEW CHANGE IN BOWEL CONTROL? NO . GENITOURINARY: ANY NEW CHANGE IN BLADDER CONTROL? NO . IS THERE A CHANCE YOU COULD BE ? NO . HEMATOLOGY/LYMPH: DO YOU TAKE ANY BLOOD THINNERS? (FOR EXAMPLE- COUMADIN, PLAVIX, AGGRENOX, PLATEL, PRADAXA, OR XARELTO) NO . WHEN WAS YOUR LAST DOSE? DATE: TIME: . NEUROLOGY: HAVE YOU FALLEN IN THE PAST 12 MONTHS? NO . ANY NEW EXTREMITY NUMBNESS OR WEAKNESS? NO . CARDIOLOGY: DO YOU HAVE A PACEMAKER OR DEFIBRILLATOR? NO HAS DCS . RESPIRATORY: HAVE YOU BEEN SICK IN THE PAST WEEK? NO . FEVER NO . FLU LIKE SYMPTOMS? NO . COUGH NO . INTEGUMENTARY: DO YOU HAVE ANY RASHES OR OPEN SORES? NO . ALLERGIC/IMMUNO: ARE YOU ALLERGIC TO IV DYE? NO . ANY NEW ALLERGIES? NO . PSYCHIATRIC: DO YOU HAVE THOUGHTS OF HURTING YOURSELF OR SOMEONE ELSE? NO . ARE YOU ABUSED, NEGLECTED, OR IN AN UNSAFE ENVIRONMENT? NO . ENDOCRINOLOGY: ARE YOU DIABETIC? NO . OTHER: DO YOU NEED ANY PRESCRIPTIONS? NO . IF YES, PLEASE LIST: ____ . ANY NEW PROBLEMS WITH YOUR MEDICATIONS? NO . WHEN DID YOU LAST EAT? ____ . WHEN DID YOU LAST DRINK? ____ . WHAT DID YOU LAST DRINK? ____ . NAME OF PERSON DRIVING YOU HOME? ____ . DO YOU HAVE ANY OTHER QUESTIONS OR CONCERNS IN THE END OF SEPTEMBER SHE STARTED EXPERIENCING SEVERE BURNING IN HER LEGS FROM HER KNEES DOWN TO HER FEET. AT TIMES SHE HAS IT IN HER THIGHS. SHE HAS MET ON SEVERAL OCCASSIONS WITH SAM TO TRY TO ADJUST THE DCS BUT SO FAR NO RELIEF. NOW AT THE THE BURNING IS SO INTENSE THAT SHE CAN'T TOLERATE IT. SHE HAS HAD THE STIMULATOR OFF NOW FOR 3 DAYS AND THE BURNING STILL CONTINUES, SHE HAS TURNED TO STIMULATOR OFF FOR LONG 6 DAYS AND THE BURNING CONTINUED. AT TIMES SHE ALSO HAS A "BUZZING" FEELING IN HER NECK TO THE BASE OF HER HEAD. CLONIDINE DID NOT TOUCH THE BURNING SENSATION AT ALL. . VITAL SIGNS WT 113 LBS, HT 64 IN, BMI 19.39 INDEX, BP 143/78 MM HG, HR 70 /MIN, RR 16 /MIN, TEMP 99.9 F, OXYGEN SAT % 100%, SAFE IN ENV? (Y/N) Y, NA INITIALS SC 14:48, REVIEWED BY: AD. EXAMINATION GENERAL EXAMINATION: PATIENT IS ALERT O X 3 AND COOPERATIVE. 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 MCLEOD'S PAIN MANAGEMENT CASE. I WILL ORDER A LUMBAR AND THORACIC MRI TO BE SURE THERE HAVE NOT BEEN ANY SIGNIFICANT CHANGES THAT WOULD CAUSE THE PAIN DOWN THE PATIENT'S LEGS. I WOULD LIKE THE PATIENT TO START TIZANIDINE AT NIGHT TO HELP WITH THE SPASMS. THE PATIENT WILL FOLLOW UP IN 2 WEEKS. I HAVE A LONG CONVERSATION WITH THE PATIENT IN POSSIBLE REASONS FOR HER LEG SYMPTOMS. THEY INCLUDE PARESTHESIAS ASSOCIATED WITH THE SCS, PERIPHERAL NEUROPATHIES SUCH DPN, NEUROPATHIES ASSOCIATED WITH LOW LEVELS OF MINERALS AND VITAMINS, NUTRITIONAL ISSUES, QUALIFICATION ENGINEER CONDITIONS, PERIPHERAL NERVE CONDITIONS. WE WILL START LOOKING AT THE SPINE TROUGH THE MRI. REFERRAL TO NEUROLOGY WILL BE CONSIDER. INSTRUCTIONS WERE GIVEN, QUESTIONS WERE ANSWERED, PATIENT REPORTS UNDERSTANDING AND AGREES WITH THE PLAN. I, CHRISTY MARKS, DOCUMENTED THE ABOVE INFORMATION ACTING A SCRIBE FOR DR. LONGO. I HAVE REVIEWED THE ABOVE DOCUMENT, WRITTEN BY CHRISTY TORRESIBNini AND I VERIFY THAT IT IS ACCURATE. OTHERS START TIZANIDINE HCL TABLET, 2 MG, 1 TABLET NEEDED, ORALLY, BEFORE BEDTIME MAY REPEAT IN 4 HRS MDD2, 30 DAY(S), 50, REFILLS 1 PREVENTIVE MEDICINE PAIN CLINIC TEACHING: MEDICATIONS NEW MEDICATION TIZANIDINE WRITTEN INSTRUCTIONS PROVIDED AND DISCUSSED WITH PT. VERBALIZE UNDERSTANDING.. PROCEDURE CODES FA211 ESTABILISHED PATIENT [facility] FACILITY CHARGE [id number] CURRENT MEDS W/DOSAGES DOCUMENTED G8730 PAIN ASSESS POS TOOL F/U PLAN DOC DISPOSITION & COMMUNICATION FOLLOW UP 2 WEEKS ELECTRONICALLY SIGNED BY TYLER LONGO MD, MD ON 06/10/2018 AT 03:05 PM EST DISCLAIMER : THIS IS A VISIT SUMMARY EXTRACTED FROM THE [employer] CHART. IT IS NOT A COPY OF THE [employer] PROGRESS NOTE. MTDD
== END ==
LOC: M PAIN 15:00
PROVIDERS: ATTEND Anesthesiology
DX: M51.17 Intervertebral disc disorders with radiculopathy, lumbosacral region (principal); M96.1 Postlaminectomy syndrome, not elsewhere classified; F17.210 Nicotine dependence, cigarettes, uncomplicated; Z79.899 Other long term (current) drug therapy; Z88.0 Allergy status to penicillin; Z88.1 Allergy status to other antibiotic agents; Z88.6 Allergy status to analgesic agent; Z88.8 Allergy status to other drugs, medicaments and biological substances; Z96.9 Presence of functional implant, unspecified

== ENCOUNTER → 2018-07-16 | Outpatient (CLI) | payer MEDICARE | LOC: M PAIN 14:15 | PROVIDERS: ATTEND Anesthesiology | DX: M79.669 Pain in unspecified lower leg (principal); Z53.8 Procedure and treatment not carried out for other reasons ==

== ENCOUNTER → 2018-09-18 | Outpatient (CLI) | payer MEDICARE ==
--- NOTE | 2018-09-18 15:27 | REP ---
C-ARM VIEWS THORACOLUMBAR SPINE: Multiple C-arm views of the thoracolumbar spine performed during followup of dorsal column stimulator. Leads are seen in the thoracic region. 20 seconds of fluoroscopy time utilized. Electronically Signed by Nate Branch MD 09/19/2018 09:27 A
--- NOTE | 2018-09-28 00:56 | ECWPNPC ---
PATIENT NAME: SAEED MCLEOD : 1975 GENDER: FEMALE VISIT DATE: 09/18/2018 DISCHARGE DATE: 09/18/18 1538 VISIT LOCKED DATE TIME: PHYSICIAN: TYLER LONGO MD RESOURCE: TYLER LONGO MD REASON FOR APPOINTMENT 1. DCS BATTERY CHECK HISTORY OF PRESENT ILLNESS HISTORY OF PRESENT ILLNESS: PAIN THE PATIENT DESCRIBES THE PAIN... 43 YEAR OLD FEMALE PATIENT WITH A HISTORY OF CHRONIC LOW BACK AND LEG PAIN. THE PATIENT DESCRIBES THE PAIN BURNING, THROBBING, TENDER, AND NIGHTLY WITH A PAIN SCORE OF 0-1/10 DEPENDING ON PHYSICAL ACTIVITY. THE PATIENT IS STATUS POST DCS IMPLANT AND SHE REPORTS TENDERNESS NEAR THE IMPLANTED BATTERY. THE PATIENT STATES THE PAIN IS MAINLY DURING THE NIGHT AND IS AFFECTING HER SLEEP. THE PATIENT SAYS SHE IS NOT TAKING ANY MEDICATION AT NIGHT FOR THE PAIN. THE PATIENT SAYS SHE IS VERY HAPPY WITH THE LOW BACK PAIN COVERAGE FROM THE DCS DEVICE. PATIENT DENIES UNEXPLAINABLE WEIGHT LOSS, FEVER, CHILLS, NEW CHANGES ON HER URINARY OR BOWEL CONTROL. FALL RISK SCREENING: SCREENING :NO FALLS REPORTED IN THE LAST YEAR CURRENT MEDICATIONS TAKING DRAMAMINE 50 MG TABLET 1 TABLET NEEDED ORALLY EVERY 6 HRS NOT-TAKING TIZANIDINE HCL 2 MG TABLET 1 TABLET NEEDED ORALLY BEFORE BEDTIME MAY REPEAT IN 4 HRS MDD2 NOT-TAKING ENERGY FOCUS 1 GUMMIE ORALLY TAKES 1 GUMMIE VITAMIN B12 DAILY NOT-TAKING ROPINIROLE HCL 0.25 MG TABLET 1 TO 2 ORALLY BEFORE BEDTIME, NOTES: HASN'T STARTED AND NOT SURE IF SHE IS GOING TO NOT-TAKING NAPROXEN 500 MG TABLET 1 TABLET NEEDED ORALLY EVERY 12 HRS NOT-TAKING MORPHINE SULFATE 15 MG TABLET 1 ORALLY BID MDD2, NOTES: TAKES 1/2 TAB PRN NOT-TAKING CLONIDINE HCL 0.1 MG TABLET 1 TABLET ORALLY Q8H NOT-TAKING CLONIDINE HCL 0.1 MG TABLET 1 TAB ORALLY AM AND PM NOT-TAKING TYLENOL 325 MG TABLET 1 TABLET NEEDED ORALLY EVERY 4 HRS NEEDED MEDICATION LIST REVIEWED AND RECONCILED WITH THE PATIENT PAST MEDICAL HISTORY CHRONIC BACK PAIN EMG SHOWS MILD, CHRONIC L S1 AND POSSIBLY L5 RADICULOPATHY; MILD CHRONIC R L5 RADICULOPATHY (08/2015) DCS ALLERGIES ASPIRIN: SWELLING - ALLERGY GABAPENTIN: "FELT YUCKY" - SIDE EFFECTS LYRICA: FELT YUCKY" - SIDE EFFECTS PENICILLIN (FOR ALLERGIES USE ONLY): SEVERE YEAST INFECTION - SIDE EFFECTS AMOXICILLIN: SEVERE YEAST INFECTION - SIDE EFFECTS SURGICAL HISTORY LAMINECTOMY 1997 BACK SURGERY AGAIN 1998 DIAGNOSTIC LAPARASCOPY WITH ENDOMETRIOSIS ABLATION (NANDA) 2003 (?) DCS 06/26/17 PERMANENT DCS PLACEMENT 07/2017 PNEUMOTHORAX X 4 FAMILY HISTORY FATHER: , [place] MOTHER: ALIVE, SKIN CANCER, DIAGNOSED WITH HYPERTENSION, CANCER SIBLINGS: ALIVE SON(S): ALIVE 2 BROTHER(S) , 1 SISTER(S) - HEALTHY. 2 SON(S) - HEALTHY. SOCIAL HISTORY GENERAL: TOBACCO USE ARE YOU A:CURRENT SMOKER ARE YOU INTERESTED IN QUITTING?NOT READY TO QUIT COUNSELED THE PATIENT ON SMOKING EFFECTS, EDUCATION [id number]/21/2019 HOW MANY CIGARETTES A DAY DO YOU SMOKE?6-10 HOW SOON AFTER YOU WAKE UP DO YOU SMOKE YOUR FIRST CIGARETTE?AFTER 60 MIN HOW OFTEN DO YOU SMOKE CIGARETTES?EVERY DAY PATIENT COUNSELED ON THE DANGERS OF TOBACCO USE AND URGED TO QUIT:09/18/2018 SMOKING CESSATION INFORMATION GIVEN05/14/2018 HIV / HEP-C SCREENING HIV TEST OFFERED TO PATIENT:YES DATE OFFERED:12/20/2016 TEST ACCEPTED:YES OTHERS AT HOME: CHILDREN. EDUCATION LEVEL OF EDUCATION:HIGH SCHOOL DIET: REGULAR. LANGUAGE LANGUAGES SPOKEN:BURUNDIAN DOMESTIC VIOLENCE DO YOU FEEL SAFE IN YOUR ENVIRONMENT?YES RECREATIONAL DRUG USE DRUG USE?NO EXERCISE: NO REGULAR EXERCISE. LEARNING BARRIERS / SPECIAL NEEDS CHANGE FROM LAST VISIT?YES BARRIERS TO LEARNING?NO HEARING IMPAIRED?NO VISION IMPAIRED?NO COGNITIVELY IMPAIRED?NO READINESS TO LEARN?YES LEARNING PREFERENCES?NO LEARNING CAPABILITIES PRESENT?YES EMOTIONAL BARRIERS?NO SPECIAL DEVICES?NO CARPET BINDER NEEDED?NO PAIN CLINIC PFS, CLERGY, PUBLIC HEALTH REFERRALS PFS REFERRAL NEEDED?NO CLERGY REFERRAL NEEDED?NO PUBLIC HEALTH REFERRAL NEEDED?NO WAS THE PROVIDER NOTIFIED OF ANY PERTINENT INFO? N/A HAS THE PATIENT BEEN EDUCATED REGARDING HIS/HER PLAN OF CARE?YES HAS THE PATIENT BEEN EDUCATED REGARDING PAIN, THE RISK FOR PAIN, THE IMPORTANCE OF EFFECTIVE PAIN MANAGEMENT, AND THE PAIN ASSESSMENT PROCESS?YES LATEX QUESTIONNAIRE LATEX ALLERGY : HAVE YOU EVER DEVELOPED ANY TYPE OF REACTION AFTER HANDLING LATEX PRODUCTS SUCH RUBBER GLOVES, CONDOMS, DIAPHRAGMS, BALLOONS, SOCKS, OR UNDERWEAR?NO LATEX ALLERGY : HAVE YOU EVER DEVELOPED ANY TYPE OF REACTION DURING OR AFTER DENTAL APPOINTMENT, VAGINAL/RECTAL EXAMINATION, SURGICAL PROCEDURE, OR ANY OTHER EXPOSURE?YES - PLEASE INDICATE :VAGINAL EXAM LATEX RISK : HAVE YOU EVER HAD ANY DIFFICULTY BREATHING OR HIVES AFTER EATING OR HANDLING ANY FRUITS, OR VEGETABLES; SUCH KIWI, BANANAS, STONE FRUITS, OR CHESTNUTSNO LATEX RISK : DO YOU HAVE A PREVIOUS PERSONAL HISTORY OF MORE THAN NINE SURGERIES, SPINA BIFIDA, OR REPEATED CATHERTIZATIONS? YES - PLEASE INDICATE : > 9 SURGERIES LATEX RISK : ARE YOU FREQUENTLY EXPOSED TO LATEX PRODUCTS IN YOUR OCCUPATION?NO DATE ASKED : 09/18/2018 CAFFEINE CAFFEINE USE?YES ADVANCE DIRECTIVE ADVANCE DIRECTIVE DISCUSSED WITH PATIENT:YES PT DOES NOT HAVE ANY ADVANCED DIRECTIVES, AND SHE DECLINES INFORMATION ON HCP AT THIS TIME. ANABAPTIST [id number] NONE NO MORMON BELIEFS THAT WOULD IMPACT HEALTH CARE. MARITAL STATUS: SINGLE. ALCOHOL SCREENING DID YOU HAVE A DRINK CONTAINING ALCOHOL IN THE PAST YEAR?NO POINTS0 INTERPRETATIONNEGATIVE OCCUPATION: UNEMPLOYED. SEXUAL HX HAD SEX IN THE LAST 12 MONTHS (VAGINAL, ORAL, OR ANAL)?YES GAVE QUIT SMOKING INFO 11/17/17REVIEWED WITH PT, 01/11/18 0922 LA05/28/18 REVIEWED WITH PT. ADREVIEWED WITH PATIENT 09/18/18 1306 JS. HOSPITALIZATION/MAJOR DIAGNOSTIC PROCEDURE SURGERIES PNEUMOTHORAX REVIEW OF SYSTEMS REVIEWED BY: PROVIDER: TYLER LONGO MD . CONSTITUTIONAL: ANY CHANGE IN YOUR MEDICAL CONDITION? NO . CHILLS NO . FEVER NO . INFECTION: DO YOU HAVE NEW INFECTIONS? NO . DO YOU HAVE HISTORY OF MRSA? NO . MUSCULOSKELETAL: ANY NEW PATTERNS OF PAIN OR NUMBNESS? YES, STATES HER BATTERY FROM HER DCS HAS BEEN CAUSING DISCOMFORT FOR THE PAST COUPLE OF DAYS. STATES IT FEELS HIGHER UP, HITS THE BOTTOM OF HER RIB CAGE, DIFFICULT TO LAY DOWN AND SLEEP AT NIGHT DUE TO THE DISCOMFORT . GASTROENTEROLOGY: ANY NEW CHANGE IN BOWEL CONTROL? NO . GENITOURINARY: ANY NEW CHANGE IN BLADDER CONTROL? NO . IS THERE A CHANCE YOU COULD BE ? NO . HEMATOLOGY/LYMPH: DO YOU TAKE ANY BLOOD THINNERS? (FOR EXAMPLE- COUMADIN, PLAVIX, AGGRENOX, PLATEL, PRADAXA, OR XARELTO) NO . WHEN WAS YOUR LAST DOSE? DATE: TIME: . NEUROLOGY: HAVE YOU FALLEN IN THE PAST 12 MONTHS? NO . ANY NEW EXTREMITY NUMBNESS OR WEAKNESS? NO . CARDIOLOGY: DO YOU HAVE A PACEMAKER OR DEFIBRILLATOR? DCS . RESPIRATORY: HAVE YOU BEEN SICK IN THE PAST WEEK? NO . FEVER NO . FLU LIKE SYMPTOMS? NO . COUGH NO . INTEGUMENTARY: DO YOU HAVE ANY RASHES OR OPEN SORES? NO . ALLERGIC/IMMUNO: ARE YOU ALLERGIC TO IV DYE? NO . ANY NEW ALLERGIES? NO . PSYCHIATRIC: DO YOU HAVE THOUGHTS OF HURTING YOURSELF OR SOMEONE ELSE? NO . ARE YOU ABUSED, NEGLECTED, OR IN AN UNSAFE ENVIRONMENT? NO . ENDOCRINOLOGY: ARE YOU DIABETIC? NO . OTHER: DO YOU NEED ANY PRESCRIPTIONS? NO . IF YES, PLEASE LIST: ____ . ANY NEW PROBLEMS WITH YOUR MEDICATIONS? NO . WHEN DID YOU LAST EAT? ____ . WHEN DID YOU LAST DRINK? ____ . WHAT DID YOU LAST DRINK? ____ . NAME OF PERSON DRIVING YOU HOME? ____ . DO YOU HAVE ANY OTHER QUESTIONS OR CONCERNS NO . VITAL SIGNS WT 115.2 LBS, HT 64 IN, BMI 19.77 INDEX, BP 115/65 MM HG, HR 74 /MIN, RR 16 /MIN, TEMP 99.3 F, OXYGEN SAT % 98%, SAFE IN ENV? (Y/N) YES, NA INITIALS AW 1259, REVIEWED BY: TEO. EXAMINATION GENERAL EXAMINATION: PATIENT IS ALERT O X 3 AND COOPERATIVE. ASSESSMENTS LUMBAR POST-LAMINECTOMY SYNDROME - M96.1 (PRIMARY) STATUS POST DCS. TREATMENT LUMBAR POST-LAMINECTOMY SYNDROME [facility] FLUORO GUIDANCE (PAIN)[id number] CLINICAL NOTES: WE DISCUSSED SEVERAL ISSUES WITH MS. MCLEOD'S PAIN MANAGEMENT CASE. THE PATIENT IS REPORTING GOOD PAIN RELIEF FROM HER DCS, HOWEVER IS EXPERIENCING PAIN NEAR THE BATTERY LOCATION. I AM PERFORMING AN X-RAY TODAY FOR EVALUATION OF THE BATTERY LOCATION AND THEN REFER HER TO NEUROSURGERY WITH ALEX FELTON AND DR. RECINOS IN [place] TO DISCUSS THE CASE AND CONSIDER REPOSITIONING THE BATTERY PLACEMENT. I AM REFILLING THE TIZANIDINE 2 MG 1-2 TABLETS TO BE TAKEN NIGHTLY TO HELP WITH SLEEP. INSTRUCTIONS WERE GIVEN, QUESTIONS WERE ANSWERED, PATIENT REPORTS UNDERSTANDING AND AGREES WITH THE PLAN. I, CULLEN BORRERO, DOCUMENTED THE ABOVE INFORMATION ACTING A SCRIBE FOR DR. LONGO. I HAVE REVIEWED THE ABOVE DOCUMENT, WRITTEN BY CULLEN BORRERO SCRIBNini AND I VERIFY THAT IT IS ACCURATE. . OTHERS REFILL TIZANIDINE HCL TABLET, 2 MG, 1 TABLET NEEDED, ORALLY, BEFORE BEDTIME MAY REPEAT IN 4 HRS MDD2, 30 DAY(S), 50, REFILLS 1 PREVENTIVE MEDICINE PAIN CLINIC TEACHING: MEDICATIONS PRINTED INFORMATION ON TIZANIDINE GIVEN TO AND REVIEWED WITH PT. AND SHE VERBALIZED UNDERSTANDING. AD. PROCEDURE CODES FA211 ESTABILISHED PATIENT [facility]AC[facility] CHARGE G8427 CURRENT MEDS W/DOSAGES DOCUMENTED G8730 PAIN ASSESS POS TOOL F/U PLAN DOC DISPOSITION & COMMUNICATION ELECTRONICALLY SIGNED BY TYLER LONGO MD, MD ON 09/26/2018 AT 04:37 PM EDT DISCLAIMER : THIS IS A VISIT SUMMARY EXTRACTED FROM THE [employer] CHART. IT IS NOT A COPY OF THE [employer] PROGRESS NOTE. MTDD
== END ==
LOC: M PAIN 13:00
PROVIDERS: ATTEND Anesthesiology
DX: M96.1 Postlaminectomy syndrome, not elsewhere classified (principal); Z96.89 Presence of other specified functional implants; F17.210 Nicotine dependence, cigarettes, uncomplicated; Z79.899 Other long term (current) drug therapy; Z88.0 Allergy status to penicillin; Z88.1 Allergy status to other antibiotic agents; Z88.6 Allergy status to analgesic agent; Z88.8 Allergy status to other drugs, medicaments and biological substances
CPT/HCPCS: 76000; G0463

== ENCOUNTER 2018-11-20 13:12 | Emergency (ER) | payer MEDICARE, MEDICAID ==
[~2018-11-20] VITALS: Ht 162.6 cm; Wt 51.8 kg
[~2018-11-20 13:12] MED LIST changes: -MORP-38 PO; +MORP-69 PO
[2018-11-20] MEDS ORDERED: pamprin (13:19)
[2018-11-20 14:17] LABS: BASO # 0.1 10^3/uL (0.0-0.2); BASO % 0.8 % (0.0-1.0); EOS # 0.1 10^3/uL (0.0-0.50); EOS % 1.2 % (0.0-3.0); HEMATOCRIT 43.5 % (36.0-47.0); HEMOGLOBIN 14.8 g/dl (12.0-15.5); LYMPH # 2.2 10^3/uL (1.5-4.5); LYMPH % 29.8 % (24.0-44.0); MEAN CORPUSCULAR HEMOGLOBIN 33.9 pg (27.0-33.0); MEAN CORPUSCULAR VOLUME 99.8 fl (80.0-96.0); MONO # 0.6 10^3/uL (0.0-0.8); MONO % 7.6 % (0.0-5.0); NEUTROPHILS # 4.5 10^3/uL (1.8-7.7); NEUTROPHILS % 60.5 % (36.0-66.0); PLATELET COUNT, AUTOMATED 330 10^3/uL (150-450); RED BLOOD COUNT 4.36 10^6/uL (4.00-5.40); WHITE BLOOD COUNT 7.4 10^3/uL (4.0-10.0)
[2018-11-20 14:40] LABS: BLOOD UREA NITROGEN 13 MG/DL (7-18); CALCIUM LEVEL 9.1 MG/DL (8.5-10.1); CARBON DIOXIDE LEVEL 33 MEQ/L (21-32); CHLORIDE LEVEL 107 MEQ/L (98-107); CREATININE FOR GFR 0.81 MG/DL (0.55-1.30); GLOMERULAR FILTRATION RATE > 60.0 (>58); GLUCOSE, FASTING 80 MG/DL (70-100); POTASSIUM SERUM 4.1 MEQ/L (3.5-5.1); SODIUM LEVEL 141 MEQ/L (136-145)
[2018-11-20] MEDS ORDERED: IBUPROFEN 600 MG TAB PO ONE (16:45)
[2018-11-20] MEDS ORDERED: BACTRIM 160MG/800MG DS TAB PO ONE (16:45)
--- NOTE | 2018-11-20 17:11 | REP ---
PELVIC ULTRASOUND: Real-time sonographic evaluation of the pelvis performed. Transabdominal and endovaginal technique is utilized. Bladder measures 4.6 x 3.0 x 8.9 cm. Uterus measures 7.4 x 4.4 x 5.7 cm. Endometrial thickness is 6 mm. There is no endometrial fluid collection. Junctional zone is not well defined. There are areas of shadowing peripherally in the region of the fundus. These findings may represent underlying adenomyosis or ill-defined fibroid changes. Right ovary measures 2.5 x 1.7 x 1.9 cm and left ovary 2.6 x 1.7 x 2.0 cm. A complex dominant follicle in the right ovary measures 1.3 cm in diameter. There is no torsion of either ovary, RI right ovary 0.58 and left ovary 0.46. There is no other evidence of adnexal mass or free fluid. IMPRESSION: Findings in the uterus suggesting possible adenomyosis, or possible ill-defined fibroid changes. Endometrial thickness is 6 mm. No endometrial fluid collection. Complex dominant follicle right ovary 1.3 cm in diameter. Electronically Signed by Nate Branch MD 11/21/2018 10:09 A
[2018-11-20] MEDS ORDERED: IBUP-1022 PO (17:33)
[2018-11-20] MEDS ORDERED: BACT800T5 PO (17:33)
[2018-11-20 17:35] VITALS: BP 130/69
--- NOTE | 2018-11-22 12:46 | ED PDOC ---
Post-Departure Follow-Up Dr Kelley faxed formal report of pelvic us for fu Tenzin Goldberg MD Nov 22, 2018 12:46
== END 2018-11-20 17:44 | disposition home or self-care (01) ==
LOC: M ED 13:12
DX: D25.9 Leiomyoma of uterus, unspecified (principal); N39.0 Urinary tract infection, site not specified; N93.8 Other specified abnormal uterine and vaginal bleeding; F17.200 Nicotine dependence, unspecified, uncomplicated; Z88.0 Allergy status to penicillin; Z88.6 Allergy status to analgesic agent; Z88.8 Allergy status to other drugs, medicaments and biological substances

== ENCOUNTER → 2019-02-11 | Outpatient (CLI) | payer MEDICARE ==
[~2019-02-11] MED LIST changes: +BACT800T5 PO; +IBUP-1022 PO; +pamprin
--- NOTE | 2019-02-27 01:56 | ECWPNPC ---
PATIENT NAME: SAEED MCLEOD : 1975 GENDER: FEMALE VISIT DATE: 02/11/2019 DISCHARGE DATE: 02/11/19 1435 VISIT LOCKED DATE TIME: PHYSICIAN: SAWYER CASE RESOURCE: SAWYER CASE REASON FOR APPOINTMENT 1. BACK HISTORY OF PRESENT ILLNESS HISTORY OF PRESENT ILLNESS: HERE FOR EALUATION OF CHRONIC MID THORACIC AND UPPER BACK PAIN.STATES DCS IS WORKING WELL TO TREAT LBP.REPORTS BEING MUCH MORE ACTIVE SINCE DCS.DOES OCCCASIONALLY HAVE EPISODES OF MID THORACIC PAIN THAT LEAVES HER BEDRIDDEN.HAS HAD ISSUES WITH VAGINAL BLEEDING AFTER STEROID INJECTIONS.REVIEWED THORACIC MRI AND DISCUSSED TREATMENT OPTIONS. PAIN THE PATIENT DESCRIBES THE PAIN... FALL RISK SCREENING: SCREENING :NO FALLS REPORTED IN THE LAST YEAR CURRENT MEDICATIONS TAKING TIZANIDINE HCL 2 MG TABLET 1 TABLET NEEDED ORALLY BEFORE BEDTIME MAY REPEAT IN 4 HRS MDD2 TAKING DRAMAMINE 50 MG TABLET 1 TABLET NEEDED ORALLY EVERY 6 HRS NOT-TAKING ENERGY FOCUS 1 GUMMIE ORALLY TAKES 1 GUMMIE VITAMIN B12 DAILY NOT-TAKING ROPINIROLE HCL 0.25 MG TABLET 1 TO 2 ORALLY BEFORE BEDTIME, NOTES: HASN'T STARTED AND NOT SURE IF SHE IS GOING TO NOT-TAKING NAPROXEN 500 MG TABLET 1 TABLET NEEDED ORALLY EVERY 12 HRS NOT-TAKING MORPHINE SULFATE 15 MG TABLET 1 ORALLY BID MDD2, NOTES: TAKES 1/2 TAB PRN NOT-TAKING CLONIDINE HCL 0.1 MG TABLET 1 TABLET ORALLY Q8H NOT-TAKING CLONIDINE HCL 0.1 MG TABLET 1 TAB ORALLY AM AND PM NOT-TAKING TYLENOL 325 MG TABLET 1 TABLET NEEDED ORALLY EVERY 4 HRS NEEDED MEDICATION LIST REVIEWED AND RECONCILED WITH THE PATIENT PAST MEDICAL HISTORY CHRONIC BACK PAIN EMG SHOWS MILD, CHRONIC L S1 AND POSSIBLY L5 RADICULOPATHY; MILD CHRONIC R L5 RADICULOPATHY (08/2015) DCS ALLERGIES ASPIRIN: SWELLING - ALLERGY GABAPENTIN: "FELT YUCKY" - SIDE EFFECTS LYRICA: FELT YUCKY" - SIDE EFFECTS PENICILLIN (FOR ALLERGIES USE ONLY): SEVERE YEAST INFECTION - SIDE EFFECTS AMOXICILLIN: SEVERE YEAST INFECTION - SIDE EFFECTS SURGICAL HISTORY LAMINECTOMY 1998 BACK SURGERY AGAIN 1998 DIAGNOSTIC LAPARASCOPY WITH ENDOMETRIOSIS ABLATION (NANDA) 2003 (?) DCS 06/26/17 PERMANENT DCS PLACEMENT 07/2017 PNEUMOTHORAX X 4 FAMILY HISTORY FATHER: , [place] MOTHER: ALIVE, SKIN CANCER, DIAGNOSED WITH HYPERTENSION, OTHER MALIGNANT NEOPLASM OF UNSPECIFIED SITE SIBLINGS: ALIVE SON(S): ALIVE 2 BROTHER(S) , 1 SISTER(S) - HEALTHY. 2 SON(S) - HEALTHY. SOCIAL HISTORY GENERAL: TOBACCO USE ARE YOU A:CURRENT SMOKER ARE YOU INTERESTED IN QUITTING?NOT READY TO QUIT COUNSELED THE PATIENT ON SMOKING EFFECTS, EDUCATION [id number]/14/2019 HOW MANY CIGARETTES A DAY DO YOU SMOKE?6-10 HOW SOON AFTER YOU WAKE UP DO YOU SMOKE YOUR FIRST CIGARETTE?AFTER 60 MIN HOW OFTEN DO YOU SMOKE CIGARETTES?EVERY DAY PATIENT COUNSELED ON THE DANGERS OF TOBACCO USE AND URGED TO QUIT:09/18/2018 SMOKING CESSATION INFORMATION GIVEN05/14/2018 HIV / HEP-C SCREENING HIV TEST OFFERED TO PATIENT:YES DATE OFFERED:12/20/2016 TEST ACCEPTED:YES OTHERS AT HOME: CHILDREN. EDUCATION LEVEL OF EDUCATION:HIGH SCHOOL DIET: REGULAR. LANGUAGE LANGUAGES SPOKEN:BULGARIAN DOMESTIC VIOLENCE DO YOU FEEL SAFE IN YOUR ENVIRONMENT?YES RECREATIONAL DRUG USE DRUG USE?NO EXERCISE: NO REGULAR EXERCISE. LEARNING BARRIERS / SPECIAL NEEDS CHANGE FROM LAST VISIT?YES BARRIERS TO LEARNING?NO HEARING IMPAIRED?NO VISION IMPAIRED?NO COGNITIVELY IMPAIRED?NO READINESS TO LEARN?YES LEARNING PREFERENCES?NO LEARNING CAPABILITIES PRESENT?YES EMOTIONAL BARRIERS?NO SPECIAL DEVICES?NO COMMUNICATION ANALYST NEEDED?NO PAIN CLINIC PFS, CLERGY, PUBLIC HEALTH REFERRALS PFS REFERRAL NEEDED?NO CLERGY REFERRAL NEEDED?NO PUBLIC HEALTH REFERRAL NEEDED?NO WAS THE PROVIDER NOTIFIED OF ANY PERTINENT INFO? N/A HAS THE PATIENT BEEN EDUCATED REGARDING HIS/HER PLAN OF CARE?YES HAS THE PATIENT BEEN EDUCATED REGARDING PAIN, THE RISK FOR PAIN, THE IMPORTANCE OF EFFECTIVE PAIN MANAGEMENT, AND THE PAIN ASSESSMENT PROCESS?YES LATEX QUESTIONNAIRE LATEX ALLERGY : HAVE YOU EVER DEVELOPED ANY TYPE OF REACTION AFTER HANDLING LATEX PRODUCTS SUCH RUBBER GLOVES, CONDOMS, DIAPHRAGMS, BALLOONS, SOCKS, OR UNDERWEAR?NO LATEX ALLERGY : HAVE YOU EVER DEVELOPED ANY TYPE OF REACTION DURING OR AFTER DENTAL APPOINTMENT, VAGINAL/RECTAL EXAMINATION, SURGICAL PROCEDURE, OR ANY OTHER EXPOSURE?YES - PLEASE INDICATE :VAGINAL EXAM DATE ASKED : 09/18/2018 LATEX RISK : HAVE YOU EVER HAD ANY DIFFICULTY BREATHING OR HIVES AFTER EATING OR HANDLING ANY FRUITS, OR VEGETABLES; SUCH KIWI, BANANAS, STONE FRUITS, OR CHESTNUTSNO LATEX RISK : DO YOU HAVE A PREVIOUS PERSONAL HISTORY OF MORE THAN NINE SURGERIES, SPINA BIFIDA, OR REPEATED CATHERIZATIONS? YES - PLEASE INDICATE : > 9 SURGERIES LATEX RISK : ARE YOU FREQUENTLY EXPOSED TO LATEX PRODUCTS IN YOUR OCCUPATION?NO CAFFEINE CAFFEINE USE?YES ADVANCE DIRECTIVE ADVANCE DIRECTIVE DISCUSSED WITH PATIENT:YES PT DOES NOT HAVE ANY ADVANCED DIRECTIVES, AND SHE DECLINES INFORMATION ON HCP AT THIS TIME. [employer] [id number] NONE NO ZOROASTRIAN BELIEFS THAT WOULD IMPACT HEALTH CARE. MARITAL STATUS: SINGLE. ALCOHOL SCREENING DID YOU HAVE A DRINK CONTAINING ALCOHOL IN THE PAST YEAR?NO POINTS0 INTERPRETATIONNEGATIVE OCCUPATION: UNEMPLOYED. SEXUAL HX HAD SEX IN THE LAST 12 MONTHS (VAGINAL, ORAL, OR ANAL)?YES GAVE QUIT SMOKING INFO 11/17/17REVIEWED WITH PT, 01/11/18 0956 LA05/28/18 REVIEWED WITH PT. ADREVIEWED WITH PATIENT 09/18/18 1306 JS. HOSPITALIZATION/MAJOR DIAGNOSTIC PROCEDURE SURGERIES PNEUMOTHORAX REVIEW OF SYSTEMS REVIEWED BY: PROVIDER: SAWYER BARAJAS . CONSTITUTIONAL: ANY CHANGE IN YOUR MEDICAL CONDITION? NO . CHILLS NO . FEVER NO . INFECTION: DO YOU HAVE NEW INFECTIONS? NO . DO YOU HAVE HISTORY OF MRSA? NO . MUSCULOSKELETAL: ANY NEW PATTERNS OF PAIN OR NUMBNESS? YES, UPPER BACK PAIN MORE OFTEN . GASTROENTEROLOGY: ANY NEW CHANGE IN BOWEL CONTROL? NO . GENITOURINARY: ANY NEW CHANGE IN BLADDER CONTROL? NO . IS THERE A CHANCE YOU COULD BE ? NO . HEMATOLOGY/LYMPH: DO YOU TAKE ANY BLOOD THINNERS? (FOR EXAMPLE- COUMADIN, PLAVIX, AGGRENOX, PLATEL, PRADAXA, OR XARELTO) NO . WHEN WAS YOUR LAST DOSE? DATE: TIME: . NEUROLOGY: HAVE YOU FALLEN IN THE PAST 12 MONTHS? NO . ANY NEW EXTREMITY NUMBNESS OR WEAKNESS? NO . CARDIOLOGY: DO YOU HAVE A PACEMAKER OR DEFIBRILLATOR? YES, DCS . RESPIRATORY: HAVE YOU BEEN SICK IN THE PAST WEEK? NO . FEVER NO . FLU LIKE SYMPTOMS? NO . COUGH NO . INTEGUMENTARY: DO YOU HAVE ANY RASHES OR OPEN SORES? NO . ALLERGIC/IMMUNO: ARE YOU ALLERGIC TO IV DYE? NO . ANY NEW ALLERGIES? NO . PSYCHIATRIC: DO YOU HAVE THOUGHTS OF HURTING YOURSELF OR SOMEONE ELSE? NO . ARE YOU ABUSED, NEGLECTED, OR IN AN UNSAFE ENVIRONMENT? NO . ENDOCRINOLOGY: ARE YOU DIABETIC? NO . OTHER: DO YOU NEED ANY PRESCRIPTIONS? NO . IF YES, PLEASE LIST: ____ . ANY NEW PROBLEMS WITH YOUR MEDICATIONS? NO . WHEN DID YOU LAST EAT? ____ . WHEN DID YOU LAST DRINK? ____ . WHAT DID YOU LAST DRINK? ____ . NAME OF PERSON DRIVING YOU HOME? ____ . DO YOU HAVE ANY OTHER QUESTIONS OR CONCERNS NO . VITAL SIGNS WT 120.6 LBS, HT 64 IN, BMI 20.70 INDEX, BP 116/75 MM HG, HR 83 /MIN, RR 16 /MIN, TEMP 99.0 F, OXYGEN SAT % 99%, NA INITIALS SC 13:17, REVIEWED BY: EM. EXAMINATION GENERAL EXAMINATION: GENERAL AWAKE,ALERT ,PLEASANT . PSYCH AFFECT NORMAL . LUNGS: LUNG KAMARA ARE CLEAR TO AUSCULTATION BILATERALLY. GOOD MOVEMENT OF AIR . HEART: S1, S2 IN A REGULAR RATE AND RHYTHM. NO SIGNIFICANT MURMURS, RUBS OR GALLOPS NOTED . MUSCULOSKELETAL: MUSCLE STRENGTH TESTING 4/5 BILATERAL LOWER EXTREMITIES. THORACIC SPINE TRIGGER POINTS ELICITED WITH PALPATION OVER RIGHT MID THORACIC AND RHOMBOID REGION. DIAGNOSTIC TESTS REVIEWED MRI THORACIC SPINE-2017. ASSESSMENTS MYALGIA, OTHER SITE - M79.18 (PRIMARY) TREATMENT MYALGIA, OTHER SITE NOTES: NO STEROIDS TPI RIGHT MID THORACIC/RHOMBOID REGION. PROCEDURE CODES FA211 ESTABILISHED PATIENT [facility] FACILITY CHARGE DISPOSITION & COMMUNICATION FOLLOW UP POST (REASON: NO STEROIDS TPI RIGHT MID THORACIC/RHOMBOID REGION) ELECTRONICALLY SIGNED BY KARL BARRETT ON 02/26/2019 AT 10:12 AM EDT DISCLAIMER : THIS IS A VISIT SUMMARY EXTRACTED FROM THE [employer] CHART. IT IS NOT A COPY OF THE [employer] PROGRESS NOTE. TIMOTHY
== END ==
LOC: M PAIN 13:00
PROVIDERS: ATTEND Nurse Practitioner Family
DX: M79.18 Myalgia, other site (principal); F17.210 Nicotine dependence, cigarettes, uncomplicated; Z88.0 Allergy status to penicillin; Z88.1 Allergy status to other antibiotic agents; Z88.6 Allergy status to analgesic agent; Z88.8 Allergy status to other drugs, medicaments and biological substances; Z79.899 Other long term (current) drug therapy

== ENCOUNTER → 2019-02-22 | Outpatient (REF) | payer MEDICARE, MEDICAID ==
[2019-02-22 15:51] LABS: ESTRADIOL < 19.0 PG/ML; FOLLICLE STIMULATING HORMONE 20.6 mIU/mL; FREE T4 1.03 NG/DL (0.76-1.46); LUTEINIZING HORMONE 7.3 mIU/mL; PROLACTIN 4.4 NG/ML; THYROID STIMULATING HORMONE 0.814 uIU/ML (0.358-3.740)
== END ==
LOC: M LABDRAW1 15:16
PROVIDERS: ATTEND Obstetrics & Gynecology
DX: N92.0 Excessive and frequent menstruation with regular cycle (principal)

== ENCOUNTER → 2019-03-12 | Outpatient (REF) | payer MEDICARE, MEDICAID | LOC: M LABDRAW1 15:43 | PROVIDERS: ATTEND Obstetrics & Gynecology | DX: N92.0 Excessive and frequent menstruation with regular cycle (principal) ==

== ENCOUNTER → 2019-03-21 | Outpatient (CLI) | payer MEDICARE ==
--- NOTE | 2019-03-27 03:11 | ECWPNPC ---
PATIENT NAME: SAEED MCLEOD : 1975 GENDER: FEMALE VISIT DATE: 03/21/2019 DISCHARGE DATE: 03/21/19 1412 VISIT LOCKED DATE TIME: PHYSICIAN: SAWYER CASE RESOURCE: SAWYER CASE REASON FOR APPOINTMENT 1. DISCUSS ISSUES HISTORY OF PRESENT ILLNESS HISTORY OF PRESENT ILLNESS: PATIENT IS BEING SEEN ON AN URGENT BASIS TODAY DUE TO UNCONTROLLED PAIN.PAIN IS LOCATED IN THORACIC AND UPPER BACK.REPORTING POOR SLEEP DUE TO PAIN.STATES DCS IS WORKING FINE FOR LOW BACK AND LEGS.SHE IS ASKING IF DCS CAN BE ADDED FOR THORACIC AND UPPER BACK PAIN.RATING PAIN VAS 9/10. PAIN THE PATIENT DESCRIBES THE PAIN... FALL RISK SCREENING: SCREENING :NO FALLS REPORTED IN THE LAST YEAR CURRENT MEDICATIONS TAKING DRAMAMINE 50 MG TABLET 1 TABLET NEEDED ORALLY EVERY 6 HRS NOT-TAKING TIZANIDINE HCL 2 MG TABLET 1 TABLET NEEDED ORALLY BEFORE BEDTIME MAY REPEAT IN 4 HRS MDD2 NOT-TAKING ENERGY FOCUS 1 GUMMIE ORALLY TAKES 1 GUMMIE VITAMIN B12 DAILY NOT-TAKING ROPINIROLE HCL 0.25 MG TABLET 1 TO 2 ORALLY BEFORE BEDTIME, NOTES: HASN'T STARTED AND NOT SURE IF SHE IS GOING TO NOT-TAKING NAPROXEN 500 MG TABLET 1 TABLET NEEDED ORALLY EVERY 12 HRS NOT-TAKING MORPHINE SULFATE 15 MG TABLET 1 ORALLY BID MDD2, NOTES: TAKES 1/2 TAB PRN NOT-TAKING CLONIDINE HCL 0.1 MG TABLET 1 TABLET ORALLY Q8H NOT-TAKING CLONIDINE HCL 0.1 MG TABLET 1 TAB ORALLY AM AND PM NOT-TAKING TYLENOL 325 MG TABLET 1 TABLET NEEDED ORALLY EVERY 4 HRS NEEDED MEDICATION LIST REVIEWED AND RECONCILED WITH THE PATIENT PAST MEDICAL HISTORY CHRONIC BACK PAIN EMG SHOWS MILD, CHRONIC L S1 AND POSSIBLY L5 RADICULOPATHY; MILD CHRONIC R L5 RADICULOPATHY (08/2015) DCS ALLERGIES ASPIRIN: SWELLING - ALLERGY GABAPENTIN: "FELT YUCKY" - SIDE EFFECTS LYRICA: FELT YUCKY" - SIDE EFFECTS PENICILLIN (FOR ALLERGIES USE ONLY): SEVERE YEAST INFECTION - SIDE EFFECTS AMOXICILLIN: SEVERE YEAST INFECTION - SIDE EFFECTS SURGICAL HISTORY LAMINECTOMY 1997 BACK SURGERY AGAIN 1998 DIAGNOSTIC LAPARASCOPY WITH ENDOMETRIOSIS ABLATION (NANDA) 2003 (?) DCS 06/26/17 PERMANENT DCS PLACEMENT 07/2017 PNEUMOTHORAX X 4 FAMILY HISTORY FATHER: , [place] MOTHER: ALIVE, SKIN CANCER, DIAGNOSED WITH HYPERTENSION, OTHER MALIGNANT NEOPLASM OF UNSPECIFIED SITE SIBLINGS: ALIVE SON(S): ALIVE 2 BROTHER(S) , 1 SISTER(S) - HEALTHY. 2 SON(S) - HEALTHY. SOCIAL HISTORY GENERAL: TOBACCO USE ARE YOU A:CURRENT SMOKER ARE YOU INTERESTED IN QUITTING?NOT READY TO QUIT COUNSELED THE PATIENT ON SMOKING EFFECTS, EDUCATION [id number]/21/2019 HOW MANY CIGARETTES A DAY DO YOU SMOKE?6-10 HOW SOON AFTER YOU WAKE UP DO YOU SMOKE YOUR FIRST CIGARETTE?AFTER 60 MIN HOW OFTEN DO YOU SMOKE CIGARETTES?EVERY DAY PATIENT COUNSELED ON THE DANGERS OF TOBACCO USE AND URGED TO QUIT:09/18/2018 SMOKING CESSATION INFORMATION GIVEN05/14/2018 HIV / HEP-C SCREENING HIV TEST OFFERED TO PATIENT:YES DATE OFFERED:12/20/2016 TEST ACCEPTED:YES OTHERS AT HOME: CHILDREN. EDUCATION LEVEL OF EDUCATION:HIGH SCHOOL DIET: REGULAR. LANGUAGE LANGUAGES SPOKEN:TURKISH DOMESTIC VIOLENCE DO YOU FEEL SAFE IN YOUR ENVIRONMENT?YES RECREATIONAL DRUG USE DRUG USE?NO EXERCISE: NO REGULAR EXERCISE. LEARNING BARRIERS / SPECIAL NEEDS CHANGE FROM LAST VISIT?YES BARRIERS TO LEARNING?NO HEARING IMPAIRED?NO VISION IMPAIRED?NO COGNITIVELY IMPAIRED?NO READINESS TO LEARN?YES LEARNING PREFERENCES?NO LEARNING CAPABILITIES PRESENT?YES EMOTIONAL BARRIERS?NO SPECIAL DEVICES?NO CENTRAL SUPPLY CLERK NEEDED?NO PAIN CLINIC PFS, CLERGY, PUBLIC HEALTH REFERRALS PFS REFERRAL NEEDED?NO CLERGY REFERRAL NEEDED?NO PUBLIC HEALTH REFERRAL NEEDED?NO WAS THE PROVIDER NOTIFIED OF ANY PERTINENT INFO? N/A HAS THE PATIENT BEEN EDUCATED REGARDING HIS/HER PLAN OF CARE?YES HAS THE PATIENT BEEN EDUCATED REGARDING PAIN, THE RISK FOR PAIN, THE IMPORTANCE OF EFFECTIVE PAIN MANAGEMENT, AND THE PAIN ASSESSMENT PROCESS?YES LATEX QUESTIONNAIRE LATEX ALLERGY : HAVE YOU EVER DEVELOPED ANY TYPE OF REACTION AFTER HANDLING LATEX PRODUCTS SUCH RUBBER GLOVES, CONDOMS, DIAPHRAGMS, BALLOONS, SOCKS, OR UNDERWEAR?NO LATEX ALLERGY : HAVE YOU EVER DEVELOPED ANY TYPE OF REACTION DURING OR AFTER DENTAL APPOINTMENT, VAGINAL/RECTAL EXAMINATION, SURGICAL PROCEDURE, OR ANY OTHER EXPOSURE?YES - PLEASE INDICATE :VAGINAL EXAM DATE ASKED : 09/18/2018 LATEX RISK : HAVE YOU EVER HAD ANY DIFFICULTY BREATHING OR HIVES AFTER EATING OR HANDLING ANY FRUITS, OR VEGETABLES; SUCH KIWI, BANANAS, STONE FRUITS, OR CHESTNUTSNO LATEX RISK : DO YOU HAVE A PREVIOUS PERSONAL HISTORY OF MORE THAN NINE SURGERIES, SPINA BIFIDA, OR REPEATED CATHERIZATIONS? YES - PLEASE INDICATE : > 9 SURGERIES LATEX RISK : ARE YOU FREQUENTLY EXPOSED TO LATEX PRODUCTS IN YOUR OCCUPATION?NO CAFFEINE CAFFEINE USE?YES ADVANCE DIRECTIVE ADVANCE DIRECTIVE DISCUSSED WITH PATIENT:YES PT DOES NOT HAVE ANY ADVANCED DIRECTIVES, AND SHE DECLINES INFORMATION ON HCP AT THIS TIME. JEW [id number] NONE NO CONGREGATION BELIEFS THAT WOULD IMPACT HEALTH CARE. MARITAL STATUS: SINGLE. ALCOHOL SCREENING DID YOU HAVE A DRINK CONTAINING ALCOHOL IN THE PAST YEAR?NO POINTS0 INTERPRETATIONNEGATIVE OCCUPATION: UNEMPLOYED. SEXUAL HX HAD SEX IN THE LAST 12 MONTHS (VAGINAL, ORAL, OR ANAL)?YES GAVE QUIT SMOKING INFO 11/17/17REVIEWED WITH PT, 01/11/18 0956 LA05/28/18 REVIEWED WITH PT. ADREVIEWED WITH PATIENT 09/18/18 1306 JS. HOSPITALIZATION/MAJOR DIAGNOSTIC PROCEDURE SURGERIES PNEUMOTHORAX REVIEW OF SYSTEMS REVIEWED BY: PROVIDER: SAWYER BARAJAS . CONSTITUTIONAL: ANY CHANGE IN YOUR MEDICAL CONDITION? NO . CHILLS NO . FEVER NO . INFECTION: DO YOU HAVE NEW INFECTIONS? NO . DO YOU HAVE HISTORY OF MRSA? NO . MUSCULOSKELETAL: ANY NEW PATTERNS OF PAIN OR NUMBNESS? YES, PAIN IS WORSE AND MORE CONSISTANT . GASTROENTEROLOGY: ANY NEW CHANGE IN BOWEL CONTROL? NO . GENITOURINARY: ANY NEW CHANGE IN BLADDER CONTROL? NO . IS THERE A CHANCE YOU COULD BE ? NO . HEMATOLOGY/LYMPH: DO YOU TAKE ANY BLOOD THINNERS? (FOR EXAMPLE- COUMADIN, PLAVIX, AGGRENOX, PLATEL, PRADAXA, OR XARELTO) NO . WHEN WAS YOUR LAST DOSE? DATE: TIME: . NEUROLOGY: HAVE YOU FALLEN IN THE PAST 12 MONTHS? NO . ANY NEW EXTREMITY NUMBNESS OR WEAKNESS? NO . CARDIOLOGY: DO YOU HAVE A PACEMAKER OR DEFIBRILLATOR? YES, DCS . RESPIRATORY: HAVE YOU BEEN SICK IN THE PAST WEEK? NO . FEVER NO . FLU LIKE SYMPTOMS? NO . COUGH NO . INTEGUMENTARY: DO YOU HAVE ANY RASHES OR OPEN SORES? NO . ALLERGIC/IMMUNO: ARE YOU ALLERGIC TO IV DYE? NO . ANY NEW ALLERGIES? NO . PSYCHIATRIC: DO YOU HAVE THOUGHTS OF HURTING YOURSELF OR SOMEONE ELSE? NO . ARE YOU ABUSED, NEGLECTED, OR IN AN UNSAFE ENVIRONMENT? NO . ENDOCRINOLOGY: ARE YOU DIABETIC? NO . OTHER: DO YOU NEED ANY PRESCRIPTIONS? NO . IF YES, PLEASE LIST: ____ . ANY NEW PROBLEMS WITH YOUR MEDICATIONS? NO . WHEN DID YOU LAST EAT? ____ . WHEN DID YOU LAST DRINK? ____ . WHAT DID YOU LAST DRINK? ____ . NAME OF PERSON DRIVING YOU HOME? ____ . DO YOU HAVE ANY OTHER QUESTIONS OR CONCERNS NO . VITAL SIGNS WT 120.2 LBS, HT 64 IN, BMI 20.63 INDEX, BP 157/85 MM HG, HR 75 /MIN, RR 16 /MIN, TEMP 98.8 F, OXYGEN SAT % 98%, NA INITIALS SC 13:30, REVIEWED BY: AMARI. EXAMINATION GENERAL EXAMINATION: GENERAL AWAKE,ALERT ,PLEAASANT . PSYCH AFFECT NORMAL . LUNGS: LUNG KAMARA ARE CLEAR TO AUSCULTATION BILATERALLY. GOOD MOVEMENT OF AIR . HEART: S1, S2 IN A REGULAR RATE AND RHYTHM. NO SIGNIFICANT MURMURS, RUBS OR GALLOPS NOTED . CERVICAL TRIGGER POINTS: CERVICAL AND TRAPEZIUS BILAT..PAIN IS AGGREVATED WITH ROJM NECK .MID SCAPULAR TRIGGER POINTS ELICITED. ASSESSMENTS MYALGIA, OTHER SITE - M79.18 (PRIMARY) TREATMENT MYALGIA, OTHER SITE NOTES: TPI MID SCAPULAR/NECK NO STEROIDSDUE TO UNCONTROLLED PAIN AFFECTING NECK AND MID SCAPULAR REGION AND LACK OF SLEEP DUE TO UNCONTROLLED PAIN IM RECOMMENDING USING HYDROCODONE 5/325 UP TO 3 TAB PER DAY FOR SEVERE EPISODES OF CHRONIC PAIN #45 SHOULD LAST 30 DAYS. PROCEDURE CODES FA211 ESTABILISHED PATIENT [facility] CHARGE DISPOSITION & COMMUNICATION FOLLOW UP POST (REASON: TPI MID SCAPULAR/NECK NO STEROIDS) ELECTRONICALLY SIGNED BY KARL BARRETT ON 03/26/2019 AT 01:09 PM EST DISCLAIMER : THIS IS A VISIT SUMMARY EXTRACTED FROM THE [employer] CHART. IT IS NOT A COPY OF THE [employer] PROGRESS NOTE. TIMOTHY
== END ==
LOC: M PAIN 13:00
PROVIDERS: ATTEND Nurse Practitioner Family
DX: M79.18 Myalgia, other site (principal)

== ENCOUNTER → 2019-05-07 | Outpatient (CLI) | payer MEDICARE, MEDICAID ==
[~2019-05-07] MED LIST changes: +BUPIVACAINE HCL 0.25% 10 ML VIAL As Ordered ONE; +BUPIVACAINE HCL 0.25% 30 ML VIAL As Ordered ONE; +TRIAMCINOLONE ACETONIDE SUSP 40 MG/ML VIAL (J3301) As Ordered ONE
--- NOTE | 2019-05-15 03:44 | ECWPNPC ---
PATIENT NAME: SAEED MCLEOD : 1975 GENDER: FEMALE VISIT DATE: 05/07/2019 DISCHARGE DATE: 05/07/19 1302 VISIT LOCKED DATE TIME: PHYSICIAN: TYLER LONGO MD RESOURCE: TYLER LONGO MD REASON FOR APPOINTMENT 1. TPI BILATERAL NECK, BILATERAL SHOULDER, BILATERAL THORACIC NO STEROIDS HISTORY OF PRESENT ILLNESS HISTORY OF PRESENT ILLNESS: PAIN THE PATIENT DESCRIBES THE PAIN... FALL RISK SCREENING: SCREENING :NO FALLS REPORTED IN THE LAST YEAR CURRENT MEDICATIONS TAKING DRAMAMINE 50 MG TABLET 1 TABLET NEEDED ORALLY EVERY 6 HRS, NOTES: MOTION SICKNESS 05/07/19 0900 TAKING NORCO 5-325 MG TABLET 1 TABLET NEEDED ORALLY Q8H PRN PAIN MDD3 #45 WILL LAST 30 DAYS, NOTES: 05/06/191999 NOT-TAKING TIZANIDINE HCL 2 MG TABLET 1 TABLET NEEDED ORALLY BEFORE BEDTIME MAY REPEAT IN 4 HRS MDD2 NOT-TAKING ENERGY FOCUS 1 GUMMIE ORALLY TAKES 1 GUMMIE VITAMIN B12 DAILY NOT-TAKING ROPINIROLE HCL 0.25 MG TABLET 1 TO 2 ORALLY BEFORE BEDTIME, NOTES: HASN'T STARTED AND NOT SURE IF SHE IS GOING TO NOT-TAKING NAPROXEN 500 MG TABLET 1 TABLET NEEDED ORALLY EVERY 12 HRS NOT-TAKING MORPHINE SULFATE 15 MG TABLET 1 ORALLY BID MDD2, NOTES: TAKES 1/2 TAB PRN NOT-TAKING CLONIDINE HCL 0.1 MG TABLET 1 TABLET ORALLY Q8H NOT-TAKING CLONIDINE HCL 0.1 MG TABLET 1 TAB ORALLY AM AND PM NOT-TAKING TYLENOL 325 MG TABLET 1 TABLET NEEDED ORALLY EVERY 4 HRS NEEDED MEDICATION LIST REVIEWED AND RECONCILED WITH THE PATIENT PAST MEDICAL HISTORY CHRONIC BACK PAIN EMG SHOWS MILD, CHRONIC L S1 AND POSSIBLY L5 RADICULOPATHY; MILD CHRONIC R L5 RADICULOPATHY (08/2015) DCS ALLERGIES ASPIRIN: SWELLING - ALLERGY GABAPENTIN: "FELT YUCKY" - SIDE EFFECTS LYRICA: FELT YUCKY" - SIDE EFFECTS PENICILLIN (FOR ALLERGIES USE ONLY): SEVERE YEAST INFECTION - SIDE EFFECTS AMOXICILLIN: SEVERE YEAST INFECTION - SIDE EFFECTS SURGICAL HISTORY LAMINECTOMY 1998 BACK SURGERY AGAIN 1998 DIAGNOSTIC LAPARASCOPY WITH ENDOMETRIOSIS ABLATION (NANDA) 2003 (?) DCS 06/26/17 PERMANENT DCS PLACEMENT 07/2017 PNEUMOTHORAX X 4 FAMILY HISTORY FATHER: , [place] MOTHER: ALIVE, SKIN CANCER, DIAGNOSED WITH HYPERTENSION, OTHER MALIGNANT NEOPLASM OF UNSPECIFIED SITE SIBLINGS: ALIVE SON(S): ALIVE 2 BROTHER(S) , 1 SISTER(S) - HEALTHY. 2 SON(S) - HEALTHY. SOCIAL HISTORY GENERAL: TOBACCO USE ARE YOU A:CURRENT SMOKER ARE YOU INTERESTED IN QUITTING?READY TO QUIT CUTTING DOWN CURRENTLY, 6 A DAY RIGHT NOW COUNSELED THE PATIENT ON TOBACCO USE, CESSATION [id number]/02/2020 HOW MANY CIGARETTES A DAY DO YOU SMOKE?6-10 HOW SOON AFTER YOU WAKE UP DO YOU SMOKE YOUR FIRST CIGARETTE?AFTER 60 MIN HOW OFTEN DO YOU SMOKE CIGARETTES?EVERY DAY PATIENT COUNSELED ON THE DANGERS OF TOBACCO USE AND URGED TO QUIT:05/02/2019 SMOKING CESSATION INFORMATION GIVEN05/14/2018 HIV / HEP-C SCREENING HIV TEST OFFERED TO PATIENT:YES DATE OFFERED:12/20/2016 TEST ACCEPTED:YES OTHERS AT HOME: CHILDREN. EDUCATION LEVEL OF EDUCATION:HIGH SCHOOL DIET: REGULAR. LANGUAGE LANGUAGES SPOKEN:MARTIN[place]QUAIS DOMESTIC VIOLENCE DO YOU FEEL SAFE IN YOUR ENVIRONMENT?YES RECREATIONAL DRUG USE DRUG USE?NO EXERCISE: NO REGULAR EXERCISE. LEARNING BARRIERS / SPECIAL NEEDS CHANGE FROM LAST VISIT?NO BARRIERS TO LEARNING?NO HEARING IMPAIRED?NO VISION IMPAIRED?NO COGNITIVELY IMPAIRED?NO READINESS TO LEARN?YES LEARNING PREFERENCES?NO LEARNING CAPABILITIES PRESENT?YES EMOTIONAL BARRIERS?NO SPECIAL DEVICES?NO INFORMATION SPECIALIST NEEDED?NO PAIN CLINIC PFS, CLERGY, PUBLIC HEALTH REFERRALS PFS REFERRAL NEEDED?NO CLERGY REFERRAL NEEDED?NO PUBLIC HEALTH REFERRAL NEEDED?NO WAS THE PROVIDER NOTIFIED OF ANY PERTINENT INFO? N/A HAS THE PATIENT BEEN EDUCATED REGARDING HIS/HER PLAN OF CARE?YES HAS THE PATIENT BEEN EDUCATED REGARDING PAIN, THE RISK FOR PAIN, THE IMPORTANCE OF EFFECTIVE PAIN MANAGEMENT, AND THE PAIN ASSESSMENT PROCESS?YES LATEX QUESTIONNAIRE LATEX ALLERGY : HAVE YOU EVER DEVELOPED ANY TYPE OF REACTION AFTER HANDLING LATEX PRODUCTS SUCH RUBBER GLOVES, CONDOMS, DIAPHRAGMS, BALLOONS, SOCKS, OR UNDERWEAR?NO LATEX ALLERGY : HAVE YOU EVER DEVELOPED ANY TYPE OF REACTION DURING OR AFTER DENTAL APPOINTMENT, VAGINAL/RECTAL EXAMINATION, SURGICAL PROCEDURE, OR ANY OTHER EXPOSURE?YES - PLEASE INDICATE :VAGINAL EXAM LATEX RISK : HAVE YOU EVER HAD ANY DIFFICULTY BREATHING OR HIVES AFTER EATING OR HANDLING ANY FRUITS, OR VEGETABLES; SUCH KIWI, BANANAS, STONE FRUITS, OR CHESTNUTSNO LATEX RISK : DO YOU HAVE A PREVIOUS PERSONAL HISTORY OF MORE THAN NINE SURGERIES, SPINA BIFIDA, OR REPEATED CATHERIZATIONS? YES - PLEASE INDICATE : > 9 SURGERIES LATEX RISK : ARE YOU FREQUENTLY EXPOSED TO LATEX PRODUCTS IN YOUR OCCUPATION?NO DATE ASKED : 09/18/2018 CAFFEINE CAFFEINE USE?YES ADVANCE DIRECTIVE ADVANCE DIRECTIVE DISCUSSED WITH PATIENT:YES 05/07/2019 PT DOES NOT HAVE ANY ADVANCED DIRECTIVES, AND SHE DECLINES INFORMATION ON HCP AT THIS TIME. BV CATHOLIC [id number] NONE NO CAODAISM BELIEFS THAT WOULD IMPACT HEALTH CARE. MARITAL STATUS: SINGLE. ALCOHOL SCREENING DID YOU HAVE A DRINK CONTAINING ALCOHOL IN THE PAST YEAR?NO POINTS0 INTERPRETATIONNEGATIVE OCCUPATION: UNEMPLOYED. SEXUAL HX HAD SEX IN THE LAST 12 MONTHS (VAGINAL, ORAL, OR ANAL)?YES GAVE QUIT SMOKING INFO 11/17/17REVIEWED WITH PT, 01/11/18 0956 LA05/28/18 REVIEWED WITH PT. ADREVIEWED WITH PATIENT 09/18/18 1306 JSPRE-SCREENING COMPLETED 05/02/2019 1600 JSREVIEWED WITH PATIENT 05/07/19 1149 BV. HOSPITALIZATION/MAJOR DIAGNOSTIC PROCEDURE SURGERIES PNEUMOTHORAX REVIEW OF SYSTEMS REVIEWED BY: PROVIDER: . CONSTITUTIONAL: ANY CHANGE IN YOUR MEDICAL CONDITION? NO . CHILLS NO . FEVER NO . INFECTION: DO YOU HAVE NEW INFECTIONS? NO . DO YOU HAVE HISTORY OF MRSA? NO . MUSCULOSKELETAL: ANY NEW PATTERNS OF PAIN OR NUMBNESS? YES, INCREASING PAIN IN NECK AND UPPER BACK OVER THE PAST COUPLE MONTHS . GASTROENTEROLOGY: ANY NEW CHANGE IN BOWEL CONTROL? NO . GENITOURINARY: ANY NEW CHANGE IN BLADDER CONTROL? NO . IS THERE A CHANCE YOU COULD BE ? NO . HEMATOLOGY/LYMPH: DO YOU TAKE ANY BLOOD THINNERS? (FOR EXAMPLE- COUMADIN, PLAVIX, AGGRENOX, PLATEL, PRADAXA, OR XARELTO) NO . WHEN WAS YOUR LAST DOSE? DATE: TIME: . NEUROLOGY: HAVE YOU FALLEN IN THE PAST 12 MONTHS? NO . ANY NEW EXTREMITY NUMBNESS OR WEAKNESS? YES, INCREASING NUMBNESS IN RIGHT ARM AND HAND . CARDIOLOGY: DO YOU HAVE A PACEMAKER OR DEFIBRILLATOR? DORSAL COLUMN STIMULATOR . RESPIRATORY: HAVE YOU BEEN SICK IN THE PAST WEEK? NO . FEVER NO . FLU LIKE SYMPTOMS? NO . COUGH NO . INTEGUMENTARY: DO YOU HAVE ANY RASHES OR OPEN SORES? NO . ALLERGIC/IMMUNO: ARE YOU ALLERGIC TO IV DYE? NO . ANY NEW ALLERGIES? NO . PSYCHIATRIC: DO YOU HAVE THOUGHTS OF HURTING YOURSELF OR SOMEONE ELSE? NO . ARE YOU ABUSED, NEGLECTED, OR IN AN UNSAFE ENVIRONMENT? NO . ENDOCRINOLOGY: ARE YOU DIABETIC? NO . OTHER: DO YOU NEED ANY PRESCRIPTIONS? NO . IF YES, PLEASE LIST: ____ . ANY NEW PROBLEMS WITH YOUR MEDICATIONS? NO . WHEN DID YOU LAST EAT? 05/06/2019 2000 . WHEN DID YOU LAST DRINK? 05/07/19 0900 . WHAT DID YOU LAST DRINK? WATER . NAME OF PERSON DRIVING YOU HOME? DANIELITO . DO YOU HAVE ANY OTHER QUESTIONS OR CONCERNS NO . VITAL SIGNS WT 121.2 LBS, HT 64 IN, BMI 20.80 INDEX, BP 139/70 MM HG, HR 68 /MIN, RR 16 /MIN, TEMP 98.5 F, OXYGEN SAT % 100%, NA INITIALS SC 10:38, REVIEWED BY: EJRMAN. ASSESSMENTS MYALGIA, OTHER SITE - M79.18 (PRIMARY) PROCEDURES PN TRIGGER POINT INJECTION NO STEROIDS DATE OF PROCEDURE : PRE PROCEDURE DIAGNOSIS 1. MYALGIA 2. PAIN AT BILATERAL NECK AREA, BILATERAL SHOULDER AREA, BILATERAL THORACIC AREA POST PROCEDURE DIAGNOSIS 1. MYALGIA 2. PAIN AT BILATERAL NECK AREA, BILATERAL SHOULDER AREA, BILATERAL THORACIC AREA PROCEDURE TRIGGER POINT INJECTION AT LEFT AND RIGHT NECK AREA, LEFT AND RIGHT SHOULDER AREA, AND LEFT AND RIGHT THORACIC AREA SURGEON DR. TYLER LONGO STATISTICAL FINANCIAL ANALYST NONE ANESTHESIA LOCAL PRE PROCEDURE NOTE 44-YEAR-OLD PATIENT WITH HISTORY OF CHRONIC PAIN AT LEFT AND RIGHT NECK AREA; LEFT AND RIGHT SHOULDER AREA; AND LEFT AND RIGHT THORACIC AREA. I EVALUATED THE PATIENT AND REVIEWED THE CHART. THERE IS EVIDENCE OF BANDS OF TISSUE WITH RESTRICTION OF MOVEMENT AND PRESENCE OF TRIGGER POINT AT THE AFFECTED AREAS. I WENT OVER THE RISKS, ALTERNATIVES, AND BENEFITS ASSOCIATED WITH THIS PROCEDURE. THE PATIENT WOULD LIKE TO PROCEED AND GAVE CONSENT TO PERFORM THE PROCEDURE. THE PATIENT DENIES UNEXPLAINABLE WEIGHT LOSS, FEVER, CHILLS, OR NEW CHANGES IN URINARY OR BOWEL CONTROL DESCRIPTION OF PROCEDURE THE PATIENT WAS BROUGHT TO THE PROCEDURE ROOM AND PLACED IN THE SITTING POSITION. THE AREA WAS CLEANED WITH ALCOHOL. THE PROCEDURE WAS DONE USING ASEPTIC STERILE TECHNIQUES. I CHECKED LATERALITY AND THE LEVEL WHERE THE PROCEDURE WAS GOING TO BE PERFORMED WITH THE PATIENT AND THE SUPPORTING STAFF AT THE MOMENT OF THE TIME OUT IN THE PROCEDURE ROOM. USING A 25-GAUGE NEEDLE, TRIGGER POINTS WERE INJECTED AT RIGHT AND LEFT NECK AREA, RIGHT AND LEFT SHOULDER AREA, AND RIGHT AND LEFT THORACIC AREA WITH A TOTAL OF 40 ML OF BUPIVACAINE 0.25%. AGREED WITH THE PATIENT THE PROCEDURE WAS DONE WITHOUT STEROIDS. THERE WAS NO EVIDENCE OF BLOOD, PARESTHESIA OR CEREBROSPINAL FLUID DURING THE PROCEDURE. THE PATIENT WAS SENT TO THE RECOVERY ROOM. THE PATIENT WAS MOVING THE EXTREMITIES AND DOING WELL. THERE WAS NO COMPLICATION DURING THE PROCEDURE POST PROCEDURE NOTE THE PATIENT WILL BE SEEN IN A FOLLOWUP IN THE NEXT FEW WEEKS. I AM LOOKING FOR LONG-LASTING PAIN RELIEF WITH THIS PROCEDURE. INSTRUCTIONS WERE GIVEN, QUESTIONS WERE ANSWERED, AND THE PATIENT EXPRESSED UNDERSTANDING AND AGREED WITH THE PLAN. I, SUZY GARRIDO, DOCUMENTED THE ABOVE INFORMATION ACTING A SCRIBE FOR DR. LONGO. I HAVE REVIEWED THE ABOVE DOCUMENT, WRITTEN BY AVELINO OLIVERA, AND I VERIFY THAT IT IS ACCURATE PROCEDURE CODES 68679 INJECT TRIGGER POINTS 3/> DISPOSITION & COMMUNICATION FOLLOW UP 3 WEEKS ELECTRONICALLY SIGNED BY TYLER LONGO MD, MD ON 05/14/2019 AT 10:19 AM EST DISCLAIMER : THIS IS A VISIT SUMMARY EXTRACTED FROM THE [employer] CHART. IT IS NOT A COPY OF THE [employer] PROGRESS NOTE. TIMOTHY
== END ==
LOC: M PAIN 10:15
PROVIDERS: ATTEND Anesthesiology
DX: M79.18 Myalgia, other site (principal); F17.210 Nicotine dependence, cigarettes, uncomplicated; Z88.0 Allergy status to penicillin; Z88.1 Allergy status to other antibiotic agents; Z88.6 Allergy status to analgesic agent; Z88.8 Allergy status to other drugs, medicaments and biological substances; Z79.899 Other long term (current) drug therapy

== ENCOUNTER 2019-05-25 11:51 | Emergency (ER) | payer MEDICARE, MEDICAID ==
[~2019-05-25] VITALS: Ht 162.6 cm; Wt 55.5 kg
[~2019-05-25 11:51] MED LIST changes: -BUPIVACAINE HCL 0.25% 10 ML VIAL As Ordered ONE; -BUPIVACAINE HCL 0.25% 30 ML VIAL As Ordered ONE; -TRIAMCINOLONE ACETONIDE SUSP 40 MG/ML VIAL (J3301) As Ordered ONE
[2019-05-25 11:52] VITALS: BP 123/74
[2019-05-25] MEDS ORDERED: NAPR220C14 PO (12:03)
[2019-05-25] MEDS ORDERED: HYDR-3713 (12:03)
[2019-05-25 12:36] LABS: BASO # 0.1 10^3/uL (0.0-0.2); BASO % 0.8 % (0.0-1.0); EOS # 0.1 10^3/uL (0.0-0.5); EOS % 1.7 % (0.0-3.0); HEMATOCRIT 42.4 % (36.0-47.0); HEMOGLOBIN 14.6 g/dl (12.0-15.5); LYMPH # 1.7 10^3/uL (1.5-5.0); LYMPH % 25.7 % (24.0-44.0); MEAN CORPUSCULAR HEMOGLOBIN 34.2 pg (27.0-33.0); MEAN CORPUSCULAR HGB CONC 34.4 g/dl (32.0-36.5); MEAN CORPUSCULAR VOLUME 99.3 fl (80.0-96.0); MONO # 0.4 10^3/uL (0.0-0.8); MONO % 5.7 % (0.0-5.0); NEUTROPHILS # 4.3 10^3/uL (1.5-8.5); NEUTROPHILS % 65.9 % (36.0-66.0); PLATELET COUNT, AUTOMATED 303 10^3/uL (150-450); RED BLOOD COUNT 4.27 10^6/uL (4.00-5.40); WHITE BLOOD COUNT 6.5 10^3/uL (4.0-10.0)
--- NOTE | 2019-05-25 12:47 | REP ---
CHEST, PA AND LATERAL: 05/25/2019. Comparison: 04/18/2005. Clinical history: Central chest and back pain. Findings: Lungs are well inflated and without infiltrate. There is some blunting of the left CP angle on the frontal view, unchanged and representing small scar. Other areas of small curvilinear scar in the left base and apical pleuroparenchymal scarring bilaterally, also stable. No evidence of an acute infiltrate, pneumothorax, pneumomediastinum or any significant parenchymal lung finding. The heart is not enlarged. Dorsal column stimulator leads are seen extending to the level of the T8 vertebral body. No compression deformity or focal lesion. No free air. Impression: 1. Scarring at the left CP angle and apical pleuroparenchymal scarring unchanged since 2004. No evidence of pneumothorax, pneumomediastinum, infiltrate, effusion or other acute cardiopulmonary change. 2. Heart, mediastinal and hilar contours grossly intact. Dorsal column stimulator leads at the T8 level. Electronically Signed by Jaun F Galloway MD 05/25/2019 07:59 P
[2019-05-25 12:58] LABS: BLOOD UREA NITROGEN 13 MG/DL (7-18); CALCIUM LEVEL 9.1 MG/DL (8.5-10.1); CARBON DIOXIDE LEVEL 30 MEQ/L (21-32); CHLORIDE LEVEL 105 MEQ/L (98-107); CK-MB VALUE MASS < 1.0 NG/ML (<3.6); CPK CREATINE PHOSPHOKINASE 61 U/L (26-192); GLOMERULAR FILTRATION RATE > 60.0 (>58); GLUCOSE, FASTING 87 MG/DL (70-100); MB/CK RELATIVE INDEX 1.64 (< OR =4); POTASSIUM SERUM 3.7 MEQ/L (3.5-5.1); SODIUM LEVEL 137 MEQ/L (136-145); TROPONIN I < 0.02 NG/ML (< 0.10)
--- NOTE | 2019-05-25 16:43 | ECGEPIP ---
[facility] - ED Test Date: 2019-05-25 Pat Name: SAEED MCLEOD Department: Room: - Gender: Female Supervisor Insecticide: CT : 1975 Requested By: Tenzin Chris Order Number: [id number] Reading MD: Tenzin Chris Measurements Intervals [place] Rate: 67 P: 64 TX: 140 QRS: 50 QRSD: 83 T: 66 QT: 362 QTc: 383 Interpretive Statements SINUS RHYTHM NONSPECIFIC ST T WAVE CHANGES DELAYED R WAVE PROGRESSION NO PRIOR ECG FOR COMPARISON Electronically Signed on 05-25-2019 16:43:28 EST by Tenzin Chris
== END 2019-05-25 13:31 | disposition home or self-care (01) ==
LOC: M ED 11:51
DX: S29.011A Strain of muscle and tendon of front wall of thorax, initial encounter (principal); M62.830 Muscle spasm of back; M54.12 Radiculopathy, cervical region; X58.XXXA Exposure to other specified factors, initial encounter; Y92.9 Unspecified place or not applicable; Y93.9 Activity, unspecified; Y99.9 Unspecified external cause status; Z96.9 Presence of functional implant, unspecified; K92.9 Disease of digestive system, unspecified; N94.9 Unspecified condition associated with female genital organs and menstrual cycle; M54.9 Dorsalgia, unspecified; F17.200 Nicotine dependence, unspecified, uncomplicated; Z88.0 Allergy status to penicillin; Z88.8 Allergy status to other drugs, medicaments and biological substances

== ENCOUNTER → 2019-05-27 | Outpatient (CLI) | payer MEDICARE, MEDICAID ==
[~2019-05-27] MED LIST changes: +HYDR-3713; +NAPR220C14 PO
--- NOTE | 2019-06-12 02:18 | ECWPNPC ---
PATIENT NAME: SAEED MCLEOD : 1975 GENDER: FEMALE VISIT DATE: 05/27/2019 DISCHARGE DATE: 05/27/19 1420 VISIT LOCKED DATE TIME: PHYSICIAN: SAWYER CASE RESOURCE: SAWYER CASE REASON FOR APPOINTMENT 1. POST TPI HISTORY OF PRESENT ILLNESS HISTORY OF PRESENT ILLNESS: HERE FOR POST PROCEDURE FOLLOW-UP. HAD TRIGGER POINTS BILATERAL NECK, SHOULDER AND THORACIC REGION ON 05/07/2019. REPORTS SIGNIFICANT IMPROVEMENT IN HER PAIN FOR 3-5 DAYS POSTPROCEDURE AND THEN PAIN ABRUPTLY RETURNED. DESCRIBES DEEP MIDTHORACIC PAIN THAT RADIATES INTO THE NECK AREA. SHE FEELS MAINLY IN THE SPINE. SHE'S HAD ONE EMERGENCY ROOM VISIT RELATED TO INCREASE IN PAIN IN THIS REGION. STATES THAT AT ONE POINT SHE FELT THAT SHE WAS HAVING A HEART ATTACK. SHE STILL HAS HER GALLBLADDER. MENTIONED TO HER THAT IT WOULD BE ALDANA TO HAVE THAT CHECKED BY PRIMARY CARE SOMETIMES MID SCAPULAR PAIN RADIATING INTO THE CHEST AREA ANTERIORLY CAN BE SIGNIFICANT FOR ACUTE CHOLECYSTITIS. RATING PAIN INTENSITY AN 8/10 VAS. REVIEWED MRI OF THE THORACIC SPINE WHICH DOES SHOW PATHOLOGY AT T7-8 FOR DISC EXTRUSION FLATTENING THE VENTRAL SAC. DISCUSSED INJECTION TREATMENT OPTIONS. CURRENTLY USING HYDROCODONE 5/325. SHE IS TAKING 1-1/2 TABLETS AT NIGHTTIME, SO THAT SHE CAN GET SLEEP. SHE IS GIVEN #45 TABLETS FOR 30 DAY SUPPLY. I DID INFORM HER THAT WE WOULD NOT WANT TO INCREASE THAT AND OFFERED HER MUSCLE RELAXANTS TO TRY IN THE MIDDLE OF THE NIGHT. PAIN THE PATIENT DESCRIBES THE PAIN... FALL RISK SCREENING: SCREENING :NO FALLS REPORTED IN THE LAST YEAR CURRENT MEDICATIONS TAKING DRAMAMINE 50 MG TABLET 1 TABLET NEEDED ORALLY EVERY 6 HRS, NOTES: MOTION SICKNESS TAKING NORCO 5-325 MG TABLET 1 TABLET NEEDED ORALLY Q8H PRN PAIN MDD3 #45 WILL LAST 30 DAYS NOT-TAKING TIZANIDINE HCL 2 MG TABLET 1 TABLET NEEDED ORALLY BEFORE BEDTIME MAY REPEAT IN 4 HRS MDD2 NOT-TAKING ENERGY FOCUS 1 GUMMIE ORALLY TAKES 1 GUMMIE VITAMIN B12 DAILY NOT-TAKING ROPINIROLE HCL 0.25 MG TABLET 1 TO 2 ORALLY BEFORE BEDTIME, NOTES: HASN'T STARTED AND NOT SURE IF SHE IS GOING TO NOT-TAKING NAPROXEN 500 MG TABLET 1 TABLET NEEDED ORALLY EVERY 12 HRS NOT-TAKING MORPHINE SULFATE 15 MG TABLET 1 ORALLY BID MDD2, NOTES: TAKES 1/2 TAB PRN NOT-TAKING CLONIDINE HCL 0.1 MG TABLET 1 TABLET ORALLY Q8H NOT-TAKING CLONIDINE HCL 0.1 MG TABLET 1 TAB ORALLY AM AND PM NOT-TAKING TYLENOL 325 MG TABLET 1 TABLET NEEDED ORALLY EVERY 4 HRS NEEDED MEDICATION LIST REVIEWED AND RECONCILED WITH THE PATIENT PAST MEDICAL HISTORY CHRONIC BACK PAIN EMG SHOWS MILD, CHRONIC L S1 AND POSSIBLY L5 RADICULOPATHY; MILD CHRONIC R L5 RADICULOPATHY (08/2015) DCS ALLERGIES ASPIRIN: SWELLING - ALLERGY GABAPENTIN: "FELT YUCKY" - SIDE EFFECTS LYRICA: FELT YUCKY" - SIDE EFFECTS PENICILLIN (FOR ALLERGIES USE ONLY): SEVERE YEAST INFECTION - SIDE EFFECTS AMOXICILLIN: SEVERE YEAST INFECTION - SIDE EFFECTS SURGICAL HISTORY LAMINECTOMY 1997 BACK SURGERY AGAIN 1998 DIAGNOSTIC LAPARASCOPY WITH ENDOMETRIOSIS ABLATION (NANDA) 2003 (?) DCS 06/26/17 PERMANENT DCS PLACEMENT 07/2017 PNEUMOTHORAX X 4 FAMILY HISTORY FATHER: , [place] MOTHER: ALIVE, SKIN CANCER, DIAGNOSED WITH HYPERTENSION, OTHER MALIGNANT NEOPLASM OF UNSPECIFIED SITE SIBLINGS: ALIVE SON(S): ALIVE 2 BROTHER(S) , 1 SISTER(S) - HEALTHY. 2 SON(S) - HEALTHY. SOCIAL HISTORY GENERAL: TOBACCO USE ARE YOU A:CURRENT SMOKER ARE YOU INTERESTED IN QUITTING?READY TO QUIT CUTTING DOWN CURRENTLY, 3 A DAY RIGHT NOW COUNSELED THE PATIENT ON TOBACCO USE, CESSATION VIMCZEAU21/27/2020 HOW MANY CIGARETTES A DAY DO YOU SMOKE?5 OR LESS HOW SOON AFTER YOU WAKE UP DO YOU SMOKE YOUR FIRST CIGARETTE?AFTER 60 MIN HOW OFTEN DO YOU SMOKE CIGARETTES?EVERY DAY PATIENT COUNSELED ON THE DANGERS OF TOBACCO USE AND URGED TO QUIT:05/27/2019 SMOKING CESSATION INFORMATION GIVEN05/14/2018 HIV / HEP-C SCREENING HIV TEST OFFERED TO PATIENT:YES DATE OFFERED:12/20/2016 TEST ACCEPTED:YES OTHERS AT HOME: CHILDREN. EDUCATION LEVEL OF EDUCATION:HIGH SCHOOL DIET: REGULAR. LANGUAGE LANGUAGES SPOKEN:SAMI DOMESTIC VIOLENCE DO YOU FEEL SAFE IN YOUR ENVIRONMENT?YES RECREATIONAL DRUG USE DRUG USE?NO EXERCISE: NO REGULAR EXERCISE. LEARNING BARRIERS / SPECIAL NEEDS CHANGE FROM LAST VISIT?NO BARRIERS TO LEARNING?NO HEARING IMPAIRED?NO VISION IMPAIRED?NO COGNITIVELY IMPAIRED?NO READINESS TO LEARN?YES LEARNING PREFERENCES?NO LEARNING CAPABILITIES PRESENT?YES EMOTIONAL BARRIERS?NO SPECIAL DEVICES?NO COLOR PRINTER OPERATOR NEEDED?NO PAIN CLINIC PFS, CLERGY, PUBLIC HEALTH REFERRALS PFS REFERRAL NEEDED?NO CLERGY REFERRAL NEEDED?NO PUBLIC HEALTH REFERRAL NEEDED?NO WAS THE PROVIDER NOTIFIED OF ANY PERTINENT INFO? N/A HAS THE PATIENT BEEN EDUCATED REGARDING HIS/HER PLAN OF CARE?YES HAS THE PATIENT BEEN EDUCATED REGARDING PAIN, THE RISK FOR PAIN, THE IMPORTANCE OF EFFECTIVE PAIN MANAGEMENT, AND THE PAIN ASSESSMENT PROCESS?YES LATEX QUESTIONNAIRE LATEX ALLERGY : HAVE YOU EVER DEVELOPED ANY TYPE OF REACTION AFTER HANDLING LATEX PRODUCTS SUCH RUBBER GLOVES, CONDOMS, DIAPHRAGMS, BALLOONS, SOCKS, OR UNDERWEAR?NO LATEX ALLERGY : HAVE YOU EVER DEVELOPED ANY TYPE OF REACTION DURING OR AFTER DENTAL APPOINTMENT, VAGINAL/RECTAL EXAMINATION, SURGICAL PROCEDURE, OR ANY OTHER EXPOSURE?YES - PLEASE INDICATE :VAGINAL EXAM LATEX RISK : HAVE YOU EVER HAD ANY DIFFICULTY BREATHING OR HIVES AFTER EATING OR HANDLING ANY FRUITS, OR VEGETABLES; SUCH KIWI, BANANAS, STONE FRUITS, OR CHESTNUTSNO LATEX RISK : DO YOU HAVE A PREVIOUS PERSONAL HISTORY OF MORE THAN NINE SURGERIES, SPINA BIFIDA, OR REPEATED CATHERIZATIONS? YES - PLEASE INDICATE : > 9 SURGERIES LATEX RISK : ARE YOU FREQUENTLY EXPOSED TO LATEX PRODUCTS IN YOUR OCCUPATION?NO DATE ASKED : 09/18/2018 CAFFEINE CAFFEINE USE?YES ADVANCE DIRECTIVE ADVANCE DIRECTIVE DISCUSSED WITH PATIENT:YES 05/27/2019 PT DOES NOT HAVE ANY ADVANCED DIRECTIVES, AND SHE DECLINES INFORMATION ON HCP AT THIS TIME. JS CONGREGATIONAL POSJOODW35 NONE NO YARSANI BELIEFS THAT WOULD IMPACT HEALTH CARE. MARITAL STATUS: SINGLE. ALCOHOL SCREENING DID YOU HAVE A DRINK CONTAINING ALCOHOL IN THE PAST YEAR?NO POINTS0 INTERPRETATIONNEGATIVE OCCUPATION: UNEMPLOYED. SEXUAL HX HAD SEX IN THE LAST 12 MONTHS (VAGINAL, ORAL, OR ANAL)?YES GAVE QUIT SMOKING INFO 11/17/17REVIEWED WITH PT, 01/11/18 0956 LA05/28/18 REVIEWED WITH PT. ADREVIEWED WITH PATIENT 09/18/18 1306 JSPRE-SCREENING COMPLETED 05/02/2019 1600 JSREVIEWED WITH PATIENT 05/07/19 1149 BVREVIEWED WITH PATIENT 05/27/2019 1328 JS. HOSPITALIZATION/MAJOR DIAGNOSTIC PROCEDURE SURGERIES PNEUMOTHORAX REVIEW OF SYSTEMS REVIEWED BY: PROVIDER: SAWYER BARAJAS . CONSTITUTIONAL: ANY CHANGE IN YOUR MEDICAL CONDITION? NO . CHILLS NO . FEVER NO . INFECTION: DO YOU HAVE NEW INFECTIONS? NO . DO YOU HAVE HISTORY OF MRSA? NO . MUSCULOSKELETAL: ANY NEW PATTERNS OF PAIN OR NUMBNESS? YES, PAIN WAS SO SEVERE AND CAME BACK SO SUDDENLY AND EXTENDED DOWN FROM NECK AND SHOULDERS TO CHEST AREA THAT SHE WENT TO THE ER TO BE SEEN - FELT LIKE SHE MIGHT BE HAVING A HEART ATTACK OR HAVING PNEUMONIA - ALL TESTS CAME BACK NEGATIVE . GASTROENTEROLOGY: ANY NEW CHANGE IN BOWEL CONTROL? NO . GENITOURINARY: ANY NEW CHANGE IN BLADDER CONTROL? NO . IS THERE A CHANCE YOU COULD BE ? NO . HEMATOLOGY/LYMPH: DO YOU TAKE ANY BLOOD THINNERS? (FOR EXAMPLE- COUMADIN, PLAVIX, AGGRENOX, PLATEL, PRADAXA, OR XARELTO) NO . WHEN WAS YOUR LAST DOSE? DATE: TIME: . NEUROLOGY: HAVE YOU FALLEN IN THE PAST 12 MONTHS? NO . ANY NEW EXTREMITY NUMBNESS OR WEAKNESS? NO . CARDIOLOGY: DO YOU HAVE A PACEMAKER OR DEFIBRILLATOR? NO, DORSAL COLUMN STIMULATOR . RESPIRATORY: HAVE YOU BEEN SICK IN THE PAST WEEK? NO . FEVER NO . FLU LIKE SYMPTOMS? NO . COUGH NO . INTEGUMENTARY: DO YOU HAVE ANY RASHES OR OPEN SORES? NO . ALLERGIC/IMMUNO: ARE YOU ALLERGIC TO IV DYE? NO . ANY NEW ALLERGIES? NO . PSYCHIATRIC: DO YOU HAVE THOUGHTS OF HURTING YOURSELF OR SOMEONE ELSE? NO . ARE YOU ABUSED, NEGLECTED, OR IN AN UNSAFE ENVIRONMENT? NO . ENDOCRINOLOGY: ARE YOU DIABETIC? NO . OTHER: DO YOU NEED ANY PRESCRIPTIONS? YES . IF YES, PLEASE LIST: ____NORCO . ANY NEW PROBLEMS WITH YOUR MEDICATIONS? NO . WHEN DID YOU LAST EAT? ____ . WHEN DID YOU LAST DRINK? ____ . WHAT DID YOU LAST DRINK? ____ . NAME OF PERSON DRIVING YOU HOME? ____ . DO YOU HAVE ANY OTHER QUESTIONS OR CONCERNS NO . VITAL SIGNS WT 124.8 LBS, HT 64 IN, BMI 21.42 INDEX, BP 137/74 MM HG, HR 74 /MIN, RR 18 /MIN, TEMP 98.6 F, OXYGEN SAT % 99%, SAFE IN ENV? (Y/N) YES, REVIEWED BY: TEO. EXAMINATION GENERAL EXAMINATION: GENERALAWAKE, ALERT, PLEASANT . PSYCH AFFECT NORMAL . LUNGS: LUNG KAMARA ARE CLEAR TO AUSCULTATION BILATERALLY. GOOD MOVEMENT OF AIR . HEART: S1, S2 IN A REGULAR RATE AND RHYTHM. NO SIGNIFICANT MURMURS, RUBS OR GALLOPS NOTED . THORACIC SPINE:SPECIFIC POINT TENDERNESS NOTED OVER MID THORACIC TO CERVICAL SPINE SPECIFIC POINT TENDERNESS NOTED OVER T6-7, T7-8 FACET REGION BILATERALLY. PAIN IS AGGRAVATED IN THIS REGION WITH EXTENSION OF SPINE.. DIAGNOSTIC TESTS REVIEWEDMRI OF THE THORACIC SPINE 02/23/2017 . 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 () BRINGS IN MEDICATIONS WHICH IS APPROPRIATE FOR WHAT WAS DISPENSED. RECENT URINE TOXICOLOGY REVIEWED. NO UNAUTHORIZED MEDICATIONS. NO ILLICIT SUBSTANCES AND PRESCRIBED MEDICATIONS WERE PRESENT. URINE TOXICOLOGY TODAY, RISKS OF NARCOTIC/OPIOD MEDICATIONS INCLUDES BUT IS NOT LIMITED TO RISK OF DEPENDANCE/DEVELOPMENT OF ADDICTION, MOOD DISTURBANCE AND DEPRESSION, OSTEOPOROSIS, HORMONAL AND LABIDAL CHANGES, RESPIRATORY DEPRESSION AND . PATIENT IS ADVISED NOT TO DRIVE OR DRINK ALCOHOL WHILE ON THESE. PROCEDURE CODES FA211 ESTABILISHED PATIENT [facility] FAC[facility] CHARGE DISPOSITION & COMMUNICATION FOLLOW UP POST (REASON: T6/7-T7/8 THORACIC FACET BLOCK THERAPEUTIC BILAT) ELECTRONICALLY SIGNED BY KARL BARRETT ON 06/11/2019 AT 03:24 PM EST DISCLAIMER : THIS IS A VISIT SUMMARY EXTRACTED FROM THE [facility] [facility] CHART. IT IS NOT A COPY OF THE [employer] PROGRESS NOTE. TIMOTHY
== END ==
LOC: M PAIN 13:15
PROVIDERS: ATTEND Nurse Practitioner Family
DX: M51.24 Other intervertebral disc displacement, thoracic region (principal); F17.210 Nicotine dependence, cigarettes, uncomplicated; Z88.0 Allergy status to penicillin; Z88.1 Allergy status to other antibiotic agents; Z88.6 Allergy status to analgesic agent; Z88.8 Allergy status to other drugs, medicaments and biological substances; Z79.899 Other long term (current) drug therapy

== ENCOUNTER → 2019-07-01 | Outpatient (CLI) | payer MEDICARE, MEDICAID ==
[~2019-07-01] MED LIST changes: +BUPIVACAINE HCL 0.25% 30 ML VIAL As Ordered ONE; +ISOVUE-M 300 61% 15ML VIAL (Q9967) As Ordered ONE; +LIDOCAINE 1% SDV INJ 30 ML VIAL As Ordered ONE; +NORCO, ANEXSIA 5/325MG TABLET (HYDROcodone/ACETAMINOPHEN) As Ordered ONE; +TRIAMCINOLONE ACETONIDE SUSP 40 MG/ML VIAL (J3301) As Ordered ONE
--- NOTE | 2019-07-01 17:12 | REP ---
C-ARM VIEWS, THORACIC SPINE: Two C-Arm views thoracic spine are performed during placement of two leads which are seen with their superior tips in the mid thoracic region. 22 seconds fluoroscopy time utilized. Electronically Signed by Nate Branch MD 07/02/2019 07:48 P
--- NOTE | 2019-07-03 08:45 | REP ---
CHEST, TWO VIEWS WITH INSPIRATION AND EXPIRATION: PA and lateral views of the chest are performed. PA views are performed with both inspiration and expiration. There is no pneumothorax. There is mild biapical pleural thickening which is stable compared to 05/25/2019. No acute infiltrate is seen. Heart is normal in size. Mediastinal silhouette is unremarkable and unchanged. Dorsal column stimulator is seen with the leads at the T8 level. There are degenerative changes of the spine. IMPRESSION: No acute findings. Electronically Signed by Nate Branch MD 07/02/2019 07:49 P
--- NOTE | 2019-07-09 03:13 | ECWPNPC ---
PATIENT NAME: SAEED MCLEOD : 1975 GENDER: FEMALE VISIT DATE: 07/01/2019 DISCHARGE DATE: 07/01/19 1636 VISIT LOCKED DATE TIME: PHYSICIAN: TYLER LONGO MD RESOURCE: TYLER LONGO MD REASON FOR APPOINTMENT 1. T7/8-T8/9 THORACIC FACET BLOCK THERAPEUTIC BILAT HISTORY OF PRESENT ILLNESS HISTORY OF PRESENT ILLNESS: PAIN THE PATIENT DESCRIBES THE PAIN... FALL RISK SCREENING: SCREENING :NO FALLS REPORTED IN THE LAST YEAR CURRENT MEDICATIONS TAKING PRILOSEC , NOTES: 07-01-19 0900 TAKING ENERGY FOCUS 1 GUMMIE ORALLY TAKES 1 GUMMIE VITAMIN B12 DAILY, NOTES: 07-01-19 0800 TAKING NAPROXEN 500 MG TABLET 1 TABLET NEEDED ORALLY EVERY 12 HRS, NOTES: 06-30-192099 TAKING DRAMAMINE 50 MG TABLET 1 TABLET NEEDED ORALLY EVERY 6 HRS, NOTES: 07-01-19 1200 TAKING NORCO 5-325 MG TABLET 1 TABLET NEEDED ORALLY Q8H PRN PAIN MDD3 #45 WILL LAST 30 DAYS, NOTES: 06-30-192099 NOT-TAKING TIZANIDINE HCL 2 MG TABLET 1 TABLET NEEDED ORALLY BEFORE BEDTIME MAY REPEAT IN 4 HRS MDD2 NOT-TAKING ROPINIROLE HCL 0.25 MG TABLET 1 TO 2 ORALLY BEFORE BEDTIME, NOTES: HASN'T STARTED AND NOT SURE IF SHE IS GOING TO NOT-TAKING MORPHINE SULFATE 15 MG TABLET 1 ORALLY BID MDD2, NOTES: TAKES 1/2 TAB PRN NOT-TAKING CLONIDINE HCL 0.1 MG TABLET 1 TABLET ORALLY Q8H NOT-TAKING CLONIDINE HCL 0.1 MG TABLET 1 TAB ORALLY AM AND PM NOT-TAKING TYLENOL 325 MG TABLET 1 TABLET NEEDED ORALLY EVERY 4 HRS NEEDED MEDICATION LIST REVIEWED AND RECONCILED WITH THE PATIENT PAST MEDICAL HISTORY CHRONIC BACK PAIN EMG SHOWS MILD, CHRONIC L S1 AND POSSIBLY L5 RADICULOPATHY; MILD CHRONIC R L5 RADICULOPATHY (08/2015) DCS ALLERGIES ASPIRIN: SWELLING - ALLERGY GABAPENTIN: "FELT YUCKY" - SIDE EFFECTS LYRICA: FELT YUCKY" - SIDE EFFECTS PENICILLIN (FOR ALLERGIES USE ONLY): SEVERE YEAST INFECTION - SIDE EFFECTS AMOXICILLIN: SEVERE YEAST INFECTION - SIDE EFFECTS SURGICAL HISTORY LAMINECTOMY 1998 BACK SURGERY AGAIN 1998 DIAGNOSTIC LAPARASCOPY WITH ENDOMETRIOSIS ABLATION (NANDA) 2003 (?) DCS 06/26/17 PERMANENT DCS PLACEMENT 07/2017 PNEUMOTHORAX X 4 FAMILY HISTORY FATHER: , [place] MOTHER: ALIVE, SKIN CANCER, DIAGNOSED WITH HYPERTENSION, OTHER MALIGNANT NEOPLASM OF UNSPECIFIED SITE SIBLINGS: ALIVE SON(S): ALIVE 2 BROTHER(S) , 1 SISTER(S) - HEALTHY. 2 SON(S) - HEALTHY. SOCIAL HISTORY GENERAL: TOBACCO USE ARE YOU A:CURRENT SMOKER ARE YOU INTERESTED IN QUITTING?READY TO QUIT CUTTING DOWN CURRENTLY, 3 A DAY RIGHT NOW COUNSELED THE PATIENT ON TOBACCO USE, CESSATION [id number]/27/2020 HOW MANY CIGARETTES A DAY DO YOU SMOKE?5 OR LESS HOW SOON AFTER YOU WAKE UP DO YOU SMOKE YOUR FIRST CIGARETTE?AFTER 60 MIN HOW OFTEN DO YOU SMOKE CIGARETTES?EVERY DAY PATIENT COUNSELED ON THE DANGERS OF TOBACCO USE AND URGED TO QUIT:06/14/2019 SMOKING CESSATION INFORMATION GIVEN05/14/2018 HIV / HEP-C SCREENING HIV TEST OFFERED TO PATIENT:YES DATE OFFERED:12/20/2016 TEST ACCEPTED:YES OTHERS AT HOME: CHILDREN. EDUCATION LEVEL OF EDUCATION:HIGH SCHOOL DIET: REGULAR. LANGUAGE LANGUAGES SPOKEN:KOREAN DOMESTIC VIOLENCE DO YOU FEEL SAFE IN YOUR ENVIRONMENT?YES RECREATIONAL DRUG USE DRUG USE?NO EXERCISE: NO REGULAR EXERCISE. LEARNING BARRIERS / SPECIAL NEEDS CHANGE FROM LAST VISIT?NO BARRIERS TO LEARNING?NO HEARING IMPAIRED?NO VISION IMPAIRED?NO COGNITIVELY IMPAIRED?NO READINESS TO LEARN?YES LEARNING PREFERENCES?NO LEARNING CAPABILITIES PRESENT?YES EMOTIONAL BARRIERS?NO SPECIAL DEVICES?NO BEHAVIORAL SERVICES TECH NEEDED?NO PAIN CLINIC PFS, CLERGY, PUBLIC HEALTH REFERRALS PFS REFERRAL NEEDED?NO CLERGY REFERRAL NEEDED?NO PUBLIC HEALTH REFERRAL NEEDED?NO WAS THE PROVIDER NOTIFIED OF ANY PERTINENT INFO? N/A HAS THE PATIENT BEEN EDUCATED REGARDING HIS/HER PLAN OF CARE?YES HAS THE PATIENT BEEN EDUCATED REGARDING PAIN, THE RISK FOR PAIN, THE IMPORTANCE OF EFFECTIVE PAIN MANAGEMENT, AND THE PAIN ASSESSMENT PROCESS?YES LATEX QUESTIONNAIRE LATEX ALLERGY : HAVE YOU EVER DEVELOPED ANY TYPE OF REACTION AFTER HANDLING LATEX PRODUCTS SUCH RUBBER GLOVES, CONDOMS, DIAPHRAGMS, BALLOONS, SOCKS, OR UNDERWEAR?NO LATEX ALLERGY : HAVE YOU EVER DEVELOPED ANY TYPE OF REACTION DURING OR AFTER DENTAL APPOINTMENT, VAGINAL/RECTAL EXAMINATION, SURGICAL PROCEDURE, OR ANY OTHER EXPOSURE?YES - PLEASE INDICATE :VAGINAL EXAM DATE ASKED : 09/18/2018 LATEX RISK : HAVE YOU EVER HAD ANY DIFFICULTY BREATHING OR HIVES AFTER EATING OR HANDLING ANY FRUITS, OR VEGETABLES; SUCH KIWI, BANANAS, STONE FRUITS, OR CHESTNUTSNO LATEX RISK : DO YOU HAVE A PREVIOUS PERSONAL HISTORY OF MORE THAN NINE SURGERIES, SPINA BIFIDA, OR REPEATED CATHERIZATIONS? YES - PLEASE INDICATE : > 9 SURGERIES LATEX RISK : ARE YOU FREQUENTLY EXPOSED TO LATEX PRODUCTS IN YOUR OCCUPATION?NO CAFFEINE CAFFEINE USE?YES ADVANCE DIRECTIVE ADVANCE DIRECTIVE DISCUSSED WITH PATIENT:YES 05/27/2019 PT DOES NOT HAVE ANY ADVANCED DIRECTIVES, AND SHE DECLINES INFORMATION ON HCP AT THIS TIME. YARSANISM [id number] NONE NO HOAHAOISM BELIEFS THAT WOULD IMPACT HEALTH CARE. MARITAL STATUS: SINGLE. ALCOHOL SCREENING DID YOU HAVE A DRINK CONTAINING ALCOHOL IN THE PAST YEAR?NO POINTS0 INTERPRETATIONNEGATIVE OCCUPATION: UNEMPLOYED. SEXUAL HX HAD SEX IN THE LAST 12 MONTHS (VAGINAL, ORAL, OR ANAL)?YES GAVE QUIT SMOKING INFO 11/17/17REVIEWED WITH PT, 01/11/18 0956 LA05/28/18 REVIEWED WITH PT. ADREVIEWED WITH PATIENT 09/18/18 1306 JSPRE-SCREENING COMPLETED 05/02/2019 1600 JSREVIEWED WITH PATIENT 05/07/19 1149 BVREVIEWED WITH PATIENT 05/27/2019 1328 JSPRE PROCEDURE PHONE CALL COMPLETED 06/14/2019 1122 NLJ. HOSPITALIZATION/MAJOR DIAGNOSTIC PROCEDURE SURGERIES PNEUMOTHORAX REVIEW OF SYSTEMS REVIEWED BY: PROVIDER: . CONSTITUTIONAL: ANY CHANGE IN YOUR MEDICAL CONDITION? NO . CHILLS NO . FEVER NO . INFECTION: DO YOU HAVE NEW INFECTIONS? NO . DO YOU HAVE HISTORY OF MRSA? NO . MUSCULOSKELETAL: ANY NEW PATTERNS OF PAIN OR NUMBNESS? NO . GASTROENTEROLOGY: ANY NEW CHANGE IN BOWEL CONTROL? NO . GENITOURINARY: ANY NEW CHANGE IN BLADDER CONTROL? NO . IS THERE A CHANCE YOU COULD BE ? NO . HEMATOLOGY/LYMPH: DO YOU TAKE ANY BLOOD THINNERS? (FOR EXAMPLE- COUMADIN, PLAVIX, AGGRENOX, PLATEL, PRADAXA, OR XARELTO) NO . WHEN WAS YOUR LAST DOSE? DATE: TIME: . NEUROLOGY: HAVE YOU FALLEN IN THE PAST 12 MONTHS? NO . ANY NEW EXTREMITY NUMBNESS OR WEAKNESS? NO . CARDIOLOGY: DO YOU HAVE A PACEMAKER OR DEFIBRILLATOR? DORSAL COLUMN STIMULATOR . RESPIRATORY: HAVE YOU BEEN SICK IN THE PAST WEEK? NO . FEVER NO . FLU LIKE SYMPTOMS? NO . COUGH NO . INTEGUMENTARY: DO YOU HAVE ANY RASHES OR OPEN SORES? NO . ALLERGIC/IMMUNO: ARE YOU ALLERGIC TO IV DYE? NO . ANY NEW ALLERGIES? NO . PSYCHIATRIC: DO YOU HAVE THOUGHTS OF HURTING YOURSELF OR SOMEONE ELSE? NO . ARE YOU ABUSED, NEGLECTED, OR IN AN UNSAFE ENVIRONMENT? NO . ENDOCRINOLOGY: ARE YOU DIABETIC? NO . OTHER: DO YOU NEED ANY PRESCRIPTIONS? NO . IF YES, PLEASE LIST: ____ . ANY NEW PROBLEMS WITH YOUR MEDICATIONS? NO . WHEN DID YOU LAST EAT? ____06-30-19 7 PM . WHEN DID YOU LAST DRINK? ____07-01-19 6 AM . WHAT DID YOU LAST DRINK? ___NUTRABLAST . NAME OF PERSON DRIVING YOU HOME? ____FRIEND. DANIELITO . DO YOU HAVE ANY OTHER QUESTIONS OR CONCERNS NO . VITAL SIGNS WT 124 LBS, HT 64 IN, BMI 21.28 INDEX, BP 123/68 MM HG, HR 74 /MIN, RR 18 /MIN, TEMP 98.4 F, OXYGEN SAT % 100%, NA INITIALS AW 1348. 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 TYLER LONGO TRAFFIC SIGN SUPERVISOR NONE ANESTHESIA LOCAL PRE PROCEDURE NOTE THE PATIENT WITH HISTORY OF CHRONIC THORACIC PAIN. I EVALUATED THE PATIENT AND REVIEWED THE CHART. I WENT OVER THE RISKS, ALTERNATIVES, AND BENEFITS ASSOCIATED WITH THIS PROCEDURE. THE PATIENT WOULD LIKE TO PROCEED AND GAVE CONSENT TO PERFORM THE PROCEDURE. THE PATIENT DENIES UNEXPLAINABLE WEIGHT LOSS, FEVER, CHILLS, OR NEW CHANGES IN URINARY OR BOWEL CONTROL. DESCRIPTION OF PROCEDURE THE PATIENT WAS BROUGHT TO THE PROCEDURE ROOM AND PLACED IN THE PRONE POSITION. THE THORACIC AREA WAS CLEANED WITH CHLORAPREP SOLUTION AND DRAPED ASEPTICALLY. THE PROCEDURE WAS DONE UNDER STERILE CONDITIONS. I CHECKED LATERALITY AND THE LEVEL WHERE THE PROCEDURE WAS GOING TO BE PERFORMED WITH THE PATIENT AND THE SUPPORTING STAFF AT THE MOMENT OF THE TIME OUT IN THE PROCEDURE ROOM. UNDER FLUOROSCOPIC GUIDANCE, THE TARGET POINT WAS SELECTED AT THE RIGHT AND LEFT T7-T8 AND RIGHT AND LEFT T8-T9 THORACIC FACETS. TARGET POINT WAS SELECTED AFTER LATERAL ROTATION AND TILT OF THE MAGNIFIER OF THE C-ARM. LIDOCAINE 0.5% WAS USED TO NUMB THE SKIN AND THE SUBCUTANEOUS TISSUE BELOW IT. SPINAL NEEDLES, 22-GAUGE, WERE ADVANCED UNDER FLUOROSCOPIC GUIDANCE AND FOLLOWING PATIENT FEEDBACK UNTIL THE TARGETS WERE TOUCHED. THE POSITION OF THE NEEDLES WAS VERIFIED WITH MULTIPLE X-RAY VIEWS. AFTER PROPER POSITION OF THE NEEDLES WAS ACHIEVED, ISOVUE-M DYE 30% 0.1 ML WAS INJECTED SHOWING ADEQUATE SPREAD OF THE DYE. THEN A SOLUTION OF 0.9 ML OF BUPIVACAINE 0.125% OF KENALOG 10 MG WAS INJECTED AT EACH SITE. THERE WAS NO EVIDENCE OF BLOOD, PARESTHESIA OR CEREBROSPINAL FLUID DURING THE PROCEDURE. THE PATIENT WAS SENT TO THE RECOVERY ROOM. THE PATIENT WAS MOVING THE EXTREMITIES AND DOING WELL. THERE WAS NO COMPLICATION DURING THE PROCEDURE. FLUOROSCOPY TIME WAS 22 SECONDS POST PROCEDURE NOTE THE PATIENT WILL BE SEEN IN A FOLLOW UP IN THE NEXT FEW WEEKS. INSTRUCTIONS WERE GIVEN, QUESTIONS WERE ANSWERED, AND THE PATIENT EXPRESSED UNDERSTANDING AND AGREED WITH THE PLAN. I AM LOOKING FOR LONG LASTING PAIN RELIEF FOR THE PATIENT WITH THIS PROCEDURE. I, CULLEN BORRERO, DOCUMENTED THE ABOVE INFORMATION ACTING A SCRIBE FOR DR. LONGO. I HAVE REVIEWED THE ABOVE DOCUMENT, WRITTEN BY CULLEN BORRERO SCRIBNini AND I VERIFY THAT IT IS ACCURATE. DIAGNOSTIC IMAGING [facility] FACET BLOCK (PAIN)[id number] PROCEDURE CODES 76884 INJ PARAVERT F JNT C/T 1 LEV, MODIFIERS: 50 [id number] INJ PARAVERT F JNT C/T 2 LEV, MODIFIERS: 50 [id number] RADXPS IN END [id number] PXD DISPOSITION & COMMUNICATION FOLLOW UP 3 WEEKS ELECTRONICALLY SIGNED BY TYLER LONGO MD, MD ON 07/08/2019 AT 03:32 PM EDT DISCLAIMER : THIS IS A VISIT SUMMARY EXTRACTED FROM THE [employer] [facility] CHART. IT IS NOT A COPY OF THE [employer] [facility] PROGRESS NOTE. MTDD
== END ==
LOC: M PAIN 13:45
PROVIDERS: ATTEND Anesthesiology
DX: M47.814 Spondylosis without myelopathy or radiculopathy, thoracic region (principal); F17.210 Nicotine dependence, cigarettes, uncomplicated; Z88.0 Allergy status to penicillin; Z88.6 Allergy status to analgesic agent; Z88.8 Allergy status to other drugs, medicaments and biological substances; Z79.891 Long term (current) use of opiate analgesic; Z79.899 Other long term (current) drug therapy
CPT/HCPCS: 64490; 64491; 71046; J3301; Q9967

== ENCOUNTER 2019-07-22 14:03 | Emergency (ER) | payer MEDICARE, MEDICAID ==
[~2019-07-22] VITALS: Ht 162.6 cm; Wt 56.9 kg
[~2019-07-22 14:03] MED LIST changes: -BUPIVACAINE HCL 0.25% 30 ML VIAL As Ordered ONE; -ISOVUE-M 300 61% 15ML VIAL (Q9967) As Ordered ONE; -LIDOCAINE 1% SDV INJ 30 ML VIAL As Ordered ONE; -NORCO, ANEXSIA 5/325MG TABLET (HYDROcodone/ACETAMINOPHEN) As Ordered ONE; -TRIAMCINOLONE ACETONIDE SUSP 40 MG/ML VIAL (J3301) As Ordered ONE
[2019-07-22] MEDS ORDERED: PAMPRIN (14:13)
[2019-07-22] MEDS ORDERED: IBUP-1114 PO (14:20)
[2019-07-22] MEDS ORDERED: HYDR-3713 PO (14:20)
[2019-07-22] MEDS ORDERED: NAPR220C14 PO (14:20)
[2019-07-22] MEDS ORDERED: KETOROLAC TROMETHAMINE 10 MG TAB PO ONE (15:00)
[2019-07-22 15:07] LABS: APPEARANCE, URINE CLEAR (CLEAR); BACTERIA, URINE AUTO 1+ (NEGATIVE); BILIRUBIN, URINE AUTO NEGATIVE (NEGATIVE); BLOOD, URINE BLOOD 3+ (NEGATIVE); COLOR, URINE STRAW (YELLOW); GLUCOSE, URINE (UA) AUTO NEGATIVE (NEGATIVE); KETONE, URINE AUTO NEGATIVE (NEGATIVE); LEUKOCYTE ESTERASE, URINE AUTO NEGATIVE (NEGATIVE); NITRITE, URINE AUTO NEGATIVE (NEGATIVE); PROTEIN, URINE AUTO NEGATIVE (NEGATIVE); RBC, URINE AUTO 1 /HPF (0-3); SPECIFIC GRAVITY URINE AUTO 1.001 (1.002-1.035); SQUAMOUS EPITHELIAL CELL UR AU 0 /HPF (0-6); UROBILINOGEN, URINE AUTO 0.2 mg/dL (0.0-2.0); WBC, URINE AUTO 0 /HPF (0-3)
[2019-07-22 15:13] LABS: BASO % 0.4 % (0.0-1.0); EOS % 0.4 % (0.0-3.0); HEMATOCRIT 42.1 % (36.0-47.0); HEMOGLOBIN 14.4 g/dl (12.0-15.5); LYMPH # 1.7 10^3/uL (1.5-5.0); LYMPH % 14.9 % (24.0-44.0); MEAN CORPUSCULAR HGB CONC 34.2 g/dl (32.0-36.5); MEAN CORPUSCULAR VOLUME 99.5 fl (80.0-96.0); MONO # 0.7 10^3/uL (0.0-0.8); MONO % 6.1 % (0.0-5.0); NEUTROPHILS # 8.7 10^3/uL (1.5-8.5); NEUTROPHILS % 77.9 % (36.0-66.0); PLATELET COUNT, AUTOMATED 252 10^3/uL (150-450); RED BLOOD COUNT 4.23 10^6/uL (4.00-5.40); WHITE BLOOD COUNT 11.2 10^3/uL (4.0-10.0)
[2019-07-22] MEDS ORDERED: NORCO, ANEXSIA 5/325MG TABLET (HYDROcodone/ACETAMINOPHEN) PO ONE (15:15)
--- NOTE | 2019-07-22 15:58 | REP ---
PELVIC ULTRASOUND: Real-time sonographic evaluation of the pelvis performed utilizing transabdominal and endovaginal technique. Uterus is retroverted and measures 10.0 x 4.9 x 6.7 cm. Endometrial thickness is 8 mm. There is no gestational sac seen in the endometrial canal. Right ovary measures 2.1 x 1.5 x 1.2 cm. Left ovary measures 3.0 x 2.4 x 2.9 cm. There is a small cystic structure in the left ovary 2.0 x 2.2 x 2.6 cm which may represent a dominant follicle or corpus luteum. There is no evidence of ovarian torsion with duplex Doppler evaluation. There is no other evidence of adnexal mass or free fluid. The above findings may indicate very early intrauterine or missed AB. Ectopic cannot be excluded. Recommend correlation with serial quantitative beta hCG values. Electronically Signed by Nate Branch MD 07/22/2019 04:09 P
[2019-07-22 17:10] VITALS: BP 100/58
== END 2019-07-22 17:23 | disposition home or self-care (01) ==
LOC: M ED 14:03
DX: N93.8 Other specified abnormal uterine and vaginal bleeding (principal); R10.2 Pelvic and perineal pain; N80.9 Endometriosis, unspecified; M54.9 Dorsalgia, unspecified; Z87.448 Personal history of other diseases of urinary system; F17.200 Nicotine dependence, unspecified, uncomplicated; Z88.0 Allergy status to penicillin; Z88.8 Allergy status to other drugs, medicaments and biological substances

== ENCOUNTER → 2019-08-06 | Outpatient (CLI) | payer MEDICARE, MEDICAID ==
[~2019-08-06] MED LIST changes: +HYDR-3713 PO; +IBUP-1114 PO; +PAMPRIN
--- NOTE | 2019-08-12 10:25 | ECWPNPC ---
PATIENT NAME: SAEED MCLEOD : 1975 GENDER: FEMALE VISIT DATE: 08/06/2019 DISCHARGE DATE: 08/06/19 1225 VISIT LOCKED DATE TIME: PHYSICIAN: SAWYER CASE RESOURCE: SAWYER CASE HISTORY OF PRESENT ILLNESS HISTORY OF PRESENT ILLNESS: PHONE CALL TO PATIENT AND PERMISSION TO DO TELEMED VISIT WAS GIVEN. HAD BILATERAL T7-8, T8-9, THERAPEUTIC FACET BLOCK ON 07/01/2019. REPORTING PAINFUL PROCEDURE AND 1 WEEK OF SIGNIFICANT INCREASE IN PAIN POST PROCEDURE. REPORTING MARKED REDUCTION IN PAIN INCLUDING NECK AREA AND SHOULDER FOR APPROXIMATELY 2 WEEKS AFTER INITIAL AGGRAVATION. REPORTING INCREASE IN VAGINAL BLEEDING AND PAINFUL MENSES POST PROCEDURE. PATIENT HAS MENTIONED ANY STEROID INJECTIONS IN THE PAST HAVE CAUSED VAGINAL BLEEDING. SHE REALLY WANTS TO HAVE ANOTHER THERAPEUTIC FACET BLOCK PAIN IS RETURNING TO BASELINE. RATING THORACIC AND NECK, SHOULDER PAIN A 7/10 VAS. USING HYDROCODONE 5/325 ONE TABLET AT BEDTIME, WHICH PATIENT STATES IS HELPFUL FOR SLEEP. PAIN THE PATIENT DESCRIBES THE PAIN... FALL RISK SCREENING: SCREENING :NO FALLS REPORTED IN THE LAST YEAR CURRENT MEDICATIONS TAKING PRILOSEC TAKING ENERGY FOCUS 1 GUMMIE ORALLY TAKES 1 GUMMIE VITAMIN B12 DAILY TAKING NAPROXEN 500 MG TABLET 1 TABLET NEEDED ORALLY EVERY 12 HRS TAKING DRAMAMINE 50 MG TABLET 1 TABLET NEEDED ORALLY EVERY 6 HRS TAKING NORCO 5-325 MG TABLET 1 TABLET NEEDED ORALLY Q8H PRN PAIN MDD3 #45 WILL LAST 30 DAYS NOT-TAKING TIZANIDINE HCL 2 MG TABLET 1 TABLET NEEDED ORALLY BEFORE BEDTIME MAY REPEAT IN 4 HRS MDD2 NOT-TAKING ROPINIROLE HCL 0.25 MG TABLET 1 TO 2 ORALLY BEFORE BEDTIME, NOTES: HASN'T STARTED AND NOT SURE IF SHE IS GOING TO NOT-TAKING MORPHINE SULFATE 15 MG TABLET 1 ORALLY BID MDD2, NOTES: TAKES 1/2 TAB PRN NOT-TAKING CLONIDINE HCL 0.1 MG TABLET 1 TABLET ORALLY Q8H NOT-TAKING CLONIDINE HCL 0.1 MG TABLET 1 TAB ORALLY AM AND PM NOT-TAKING TYLENOL 325 MG TABLET 1 TABLET NEEDED ORALLY EVERY 4 HRS NEEDED MEDICATION LIST REVIEWED AND RECONCILED WITH THE PATIENT PAST MEDICAL HISTORY CHRONIC BACK PAIN EMG SHOWS MILD, CHRONIC L S1 AND POSSIBLY L5 RADICULOPATHY; MILD CHRONIC R L5 RADICULOPATHY (08/2015) DCS ALLERGIES ASPIRIN: SWELLING - ALLERGY GABAPENTIN: "FELT YUCKY" - SIDE EFFECTS LYRICA: FELT YUCKY" - SIDE EFFECTS PENICILLIN (FOR ALLERGIES USE ONLY): SEVERE YEAST INFECTION - SIDE EFFECTS AMOXICILLIN: SEVERE YEAST INFECTION - SIDE EFFECTS SURGICAL HISTORY LAMINECTOMY 1997 BACK SURGERY AGAIN 1998 DIAGNOSTIC LAPARASCOPY WITH ENDOMETRIOSIS ABLATION (NANDA) 2003 (?) DCS 06/26/17 PERMANENT DCS PLACEMENT 07/2017 PNEUMOTHORAX X 4 FAMILY HISTORY FATHER: , [place] MOTHER: ALIVE, SKIN CANCER, DIAGNOSED WITH HYPERTENSION, OTHER MALIGNANT NEOPLASM OF UNSPECIFIED SITE SIBLINGS: ALIVE SON(S): ALIVE 2 BROTHER(S) , 1 SISTER(S) - HEALTHY. 2 SON(S) - HEALTHY. SOCIAL HISTORY GENERAL: TOBACCO USE ARE YOU A:CURRENT SMOKER ARE YOU INTERESTED IN QUITTING?READY TO QUIT CUTTING DOWN CURRENTLY, 3 A DAY RIGHT NOW COUNSELED THE PATIENT ON TOBACCO USE, CESSATION [id number]/07/2020 HOW MANY CIGARETTES A DAY DO YOU SMOKE?5 OR LESS HOW SOON AFTER YOU WAKE UP DO YOU SMOKE YOUR FIRST CIGARETTE?AFTER 60 MIN HOW OFTEN DO YOU SMOKE CIGARETTES?EVERY DAY PATIENT COUNSELED ON THE DANGERS OF TOBACCO USE AND URGED TO QUIT:06/14/2019 SMOKING CESSATION INFORMATION GIVEN05/14/2018 HIV / HEP-C SCREENING HIV TEST OFFERED TO PATIENT:YES DATE OFFERED:12/20/2016 TEST ACCEPTED:YES OTHERS AT HOME: CHILDREN. EDUCATION LEVEL OF EDUCATION:HIGH SCHOOL DIET: REGULAR. LANGUAGE LANGUAGES SPOKEN:[place] DOMESTIC VIOLENCE DO YOU FEEL SAFE IN YOUR ENVIRONMENT?YES NEW PATIENT PAIN DIARY PATIENT DESCRIBES PAIN :HAVE IT ALL THE TIME, SHARP FROM 0-10, WHAT LEVEL IS YOUR PAIN TODAY?7 PRECIPITATING FACTORS ACTIVITY, ANYTHING ALLEVIATING FACTORS LAYING DOWN IMPACT ON FUNCTION YES RECREATIONAL DRUG USE DRUG USE?NO EXERCISE: NO REGULAR EXERCISE. LEARNING BARRIERS / SPECIAL NEEDS CHANGE FROM LAST VISIT?NO BARRIERS TO LEARNING?NO HEARING IMPAIRED?NO VISION IMPAIRED?NO COGNITIVELY IMPAIRED?NO READINESS TO LEARN?YES LEARNING PREFERENCES?NO LEARNING CAPABILITIES PRESENT?YES EMOTIONAL BARRIERS?NO SPECIAL DEVICES?NO AMMONIUM HYDROXIDE OPERATOR NEEDED?NO PAIN CLINIC PFS, CLERGY, PUBLIC HEALTH REFERRALS PFS REFERRAL NEEDED?NO CLERGY REFERRAL NEEDED?NO PUBLIC HEALTH REFERRAL NEEDED?NO WAS THE PROVIDER NOTIFIED OF ANY PERTINENT INFO? N/A HAS THE PATIENT BEEN EDUCATED REGARDING HIS/HER PLAN OF CARE?YES HAS THE PATIENT BEEN EDUCATED REGARDING PAIN, THE RISK FOR PAIN, THE IMPORTANCE OF EFFECTIVE PAIN MANAGEMENT, AND THE PAIN ASSESSMENT PROCESS?YES LATEX QUESTIONNAIRE LATEX ALLERGY : HAVE YOU EVER DEVELOPED ANY TYPE OF REACTION AFTER HANDLING LATEX PRODUCTS SUCH RUBBER GLOVES, CONDOMS, DIAPHRAGMS, BALLOONS, SOCKS, OR UNDERWEAR?NO LATEX ALLERGY : HAVE YOU EVER DEVELOPED ANY TYPE OF REACTION DURING OR AFTER DENTAL APPOINTMENT, VAGINAL/RECTAL EXAMINATION, SURGICAL PROCEDURE, OR ANY OTHER EXPOSURE?YES - PLEASE INDICATE :VAGINAL EXAM DATE ASKED : 09/18/2018 LATEX RISK : HAVE YOU EVER HAD ANY DIFFICULTY BREATHING OR HIVES AFTER EATING OR HANDLING ANY FRUITS, OR VEGETABLES; SUCH KIWI, BANANAS, STONE FRUITS, OR CHESTNUTSNO LATEX RISK : DO YOU HAVE A PREVIOUS PERSONAL HISTORY OF MORE THAN NINE SURGERIES, SPINA BIFIDA, OR REPEATED CATHERIZATIONS? YES - PLEASE INDICATE : > 9 SURGERIES LATEX RISK : ARE YOU FREQUENTLY EXPOSED TO LATEX PRODUCTS IN YOUR OCCUPATION?NO CAFFEINE CAFFEINE USE?YES ADVANCE DIRECTIVE ADVANCE DIRECTIVE DISCUSSED WITH PATIENT:YES PT DOES NOT HAVE ANY ADVANCED DIRECTIVES, AND SHE DECLINES INFORMATION ON HCP AT THIS TIME. SHINTO [id number] NONE NO ORIENTAL ORTHODOX BELIEFS THAT WOULD IMPACT HEALTH CARE. MARITAL STATUS: SINGLE. ALCOHOL SCREENING DID YOU HAVE A DRINK CONTAINING ALCOHOL IN THE PAST YEAR?NO POINTS0 INTERPRETATIONNEGATIVE OCCUPATION: UNEMPLOYED. SEXUAL HX HAD SEX IN THE LAST 12 MONTHS (VAGINAL, ORAL, OR ANAL)?YES GAVE QUIT SMOKING INFO 11/17/17REVIEWED WITH PT, 01/11/18 0956 LA05/28/18 REVIEWED WITH PT. ADREVIEWED WITH PATIENT 09/18/18 1306 JSPRE-SCREENING COMPLETED 05/02/2019 1600 JSREVIEWED WITH PATIENT 05/07/19 1149 BVREVIEWED WITH PATIENT 05/27/2019 1328 JSPRE PROCEDURE PHONE CALL COMPLETED 06/14/2019 1122 NLJ. HOSPITALIZATION/MAJOR DIAGNOSTIC PROCEDURE SURGERIES PNEUMOTHORAX REVIEW OF SYSTEMS REVIEWED BY: PROVIDER: SAWYER BARAJAS . CONSTITUTIONAL: ANY CHANGE IN YOUR MEDICAL CONDITION? NO . CHILLS NO . FEVER NO . INFECTION: DO YOU HAVE NEW INFECTIONS? NO . DO YOU HAVE HISTORY OF MRSA? NO . MUSCULOSKELETAL: ANY NEW PATTERNS OF PAIN OR NUMBNESS? NO . GASTROENTEROLOGY: ANY NEW CHANGE IN BOWEL CONTROL? NO . GENITOURINARY: ANY NEW CHANGE IN BLADDER CONTROL? NO . IS THERE A CHANCE YOU COULD BE ? NO . HEMATOLOGY/LYMPH: DO YOU TAKE ANY BLOOD THINNERS? (FOR EXAMPLE- COUMADIN, PLAVIX, AGGRENOX, PLATEL, PRADAXA, OR XARELTO) NO . WHEN WAS YOUR LAST DOSE? DATE: TIME: . NEUROLOGY: HAVE YOU FALLEN IN THE PAST 12 MONTHS? NO . ANY NEW EXTREMITY NUMBNESS OR WEAKNESS? NO . CARDIOLOGY: DO YOU HAVE A PACEMAKER OR DEFIBRILLATOR? NO . RESPIRATORY: HAVE YOU BEEN SICK IN THE PAST WEEK? NO . FEVER NO . FLU LIKE SYMPTOMS? NO . COUGH NO . INTEGUMENTARY: DO YOU HAVE ANY RASHES OR OPEN SORES? NO . ALLERGIC/IMMUNO: ARE YOU ALLERGIC TO IV DYE? NO . ANY NEW ALLERGIES? NO . PSYCHIATRIC: DO YOU HAVE THOUGHTS OF HURTING YOURSELF OR SOMEONE ELSE? NO . ARE YOU ABUSED, NEGLECTED, OR IN AN UNSAFE ENVIRONMENT? NO . ENDOCRINOLOGY: ARE YOU DIABETIC? NO . OTHER: DO YOU NEED ANY PRESCRIPTIONS? NO . IF YES, PLEASE LIST: ____ . ANY NEW PROBLEMS WITH YOUR MEDICATIONS? NO . WHEN DID YOU LAST EAT? ____ . WHEN DID YOU LAST DRINK? ____ . WHAT DID YOU LAST DRINK? ____ . NAME OF PERSON DRIVING YOU HOME? ____ . DO YOU HAVE ANY OTHER QUESTIONS OR CONCERNS NO . 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 LONGO IN REGARDS TO INCREASED VAGINAL BLEEDING POST PROCEDURES WITH STEROID. CONTINUE HYDROCODONE 5/325 AT BEDTIME NEEDED FOR SEVERE PAIN EPISODES AND FOR IMPROVED SLEEP. FOLLOW-UP WILL BE SCHEDULED IN 4-6 WEEKS TO DISCUSS TREATMENT OPTIONS., ISTOP REGISTRY REVIEWED AND DEMONSTRATES COMPLLIANCE. (REF # ) RECENT URINE TOXICOLOGY REVIEWED. NO UNAUTHORIZED MEDICATIONS. NO ILLICIT SUBSTANCES AND PRESCRIBED MEDICATIONS WERE PRESENT. APPROXIMATELY 11 MINUTES WAS SPENT IN TELEMED VISIT IN REGARDS TO MANAGEMENT OF CHRONIC PAIN. OTHERS CLINICAL NOTES: PT AGREES TO TELEPHONE VISIT. 08/06/19 EM. DISPOSITION & COMMUNICATION FOLLOW UP 4-6WKS PRE TREATMENT (REASON: THORACI/NECK PAIN) ELECTRONICALLY SIGNED BY KARL BARRETT ON 08/06/2019 AT 12:06 PM EDT DISCLAIMER : THIS IS A VISIT SUMMARY EXTRACTED FROM THE [employer] CHART. IT IS NOT A COPY OF THE [employer] PROGRESS NOTE. TIMOTHY
== END ==
LOC: M PAIN 11:15
PROVIDERS: ATTEND Nurse Practitioner Family
DX: M47.814 Spondylosis without myelopathy or radiculopathy, thoracic region (principal); M51.24 Other intervertebral disc displacement, thoracic region; F17.210 Nicotine dependence, cigarettes, uncomplicated; Z79.891 Long term (current) use of opiate analgesic; Z79.899 Other long term (current) drug therapy

== ENCOUNTER → 2019-09-10 | Outpatient (CLI) | payer MEDICARE, MEDICAID ==
--- NOTE | 2019-09-12 03:03 | ECWPNPC ---
PATIENT NAME: SAEED MCLEOD : 1975 GENDER: FEMALE VISIT DATE: 09/10/2019 DISCHARGE DATE: 09/10/19 0843 VISIT LOCKED DATE TIME: PHYSICIAN: SAWYER CASE RESOURCE: SAWYER CASE REASON FOR APPOINTMENT 1. THORACIC/NECK PAIN [email or web address] PAT COMPLETED HISTORY OF PRESENT ILLNESS HISTORY OF PRESENT ILLNESS: PATIENT IS AGREEABLE TO TELEPHONE VISIT TODAY. REPORTING INCREASE IN THORACIC BACK PAIN OVER THE PAST MONTH. RESPONDED WELL TO BILATERAL T7-8, T8-9, THERAPEUTIC FACET BLOCK IN THE PAST. SHE IS REQUESTING THAT THIS PROCEDURE BE REPEATED. PAIN IS AGGRAVATED WITH INCREASED ACTIVITY. PAIN IS RELIEVED SOMEWHAT WITH HEAT AND MEDICATIONS. FINDS CURRENT CHRONIC PAIN MEDICATION SOMEWHAT HELPFUL AT REDUCING PAIN AND KEEPING HER COMFORTABLE. DENIES ADVERSE SIDE EFFECTS. PAIN THE PATIENT DESCRIBES THE PAIN... FALL RISK SCREENING: SCREENING :NO FALLS REPORTED IN THE LAST YEAR CURRENT MEDICATIONS TAKING PRILOSEC DIRECTED ORALLY IF NEEDED FOR HEARTBURN TAKING ENERGY FOCUS 1 GUMMIE ORALLY TAKES 1 GUMMIE VITAMIN B12 DAILY TAKING NAPROXEN 500 MG TABLET 1 TABLET NEEDED ORALLY EVERY 12 HRS TAKING DRAMAMINE 50 MG TABLET 1 TABLET NEEDED ORALLY EVERY 6 HRS TAKING NORCO 5-325 MG TABLET 1 TABLET NEEDED ORALLY Q8H PRN PAIN MDD3 #45 WILL LAST 30 DAYS NOT-TAKING TIZANIDINE HCL 2 MG TABLET 1 TABLET NEEDED ORALLY BEFORE BEDTIME MAY REPEAT IN 4 HRS MDD2 NOT-TAKING ROPINIROLE HCL 0.25 MG TABLET 1 TO 2 ORALLY BEFORE BEDTIME, NOTES: HASN'T STARTED AND NOT SURE IF SHE IS GOING TO NOT-TAKING MORPHINE SULFATE 15 MG TABLET 1 ORALLY BID MDD2, NOTES: TAKES 1/2 TAB PRN NOT-TAKING CLONIDINE HCL 0.1 MG TABLET 1 TABLET ORALLY Q8H NOT-TAKING CLONIDINE HCL 0.1 MG TABLET 1 TAB ORALLY AM AND PM NOT-TAKING TYLENOL 325 MG TABLET 1 TABLET NEEDED ORALLY EVERY 4 HRS NEEDED MEDICATION LIST REVIEWED AND RECONCILED WITH THE PATIENT PAST MEDICAL HISTORY CHRONIC BACK PAIN EMG SHOWS MILD, CHRONIC L S1 AND POSSIBLY L5 RADICULOPATHY; MILD CHRONIC R L5 RADICULOPATHY (08/2015) DCS ALLERGIES ASPIRIN: SWELLING - ALLERGY GABAPENTIN: "FELT YUCKY" - SIDE EFFECTS LYRICA: FELT YUCKY" - SIDE EFFECTS PENICILLIN (FOR ALLERGIES USE ONLY): SEVERE YEAST INFECTION - SIDE EFFECTS AMOXICILLIN: SEVERE YEAST INFECTION - SIDE EFFECTS SURGICAL HISTORY LAMINECTOMY 1998 BACK SURGERY AGAIN 1998 DIAGNOSTIC LAPARASCOPY WITH ENDOMETRIOSIS ABLATION (NANDA) 2003 (?) DCS 06/26/17 PERMANENT DCS PLACEMENT 07/2017 PNEUMOTHORAX X 4 FAMILY HISTORY FATHER: , [place] MOTHER: ALIVE, SKIN CANCER, DIAGNOSED WITH HYPERTENSION, OTHER MALIGNANT NEOPLASM OF UNSPECIFIED SITE SIBLINGS: ALIVE SON(S): ALIVE 2 BROTHER(S) , 1 SISTER(S) - HEALTHY. 2 SON(S) - HEALTHY. SOCIAL HISTORY GENERAL: TOBACCO USE ARE YOU A:CURRENT SMOKER HOW OFTEN DO YOU SMOKE CIGARETTES?EVERY DAY HOW SOON AFTER YOU WAKE UP DO YOU SMOKE YOUR FIRST CIGARETTE?AFTER 60 MIN HOW MANY CIGARETTES A DAY DO YOU SMOKE?5 OR LESS ARE YOU INTERESTED IN QUITTING?READY TO QUIT CUTTING DOWN CURRENTLY, 3 A DAY RIGHT NOW PATIENT COUNSELED ON THE DANGERS OF TOBACCO USE AND URGED TO QUIT:06/14/2019 COUNSELED THE PATIENT ON TOBACCO USE, CESSATION [id number]/07/2020 SMOKING CESSATION INFORMATION GIVEN05/14/2018 LATEX QUESTIONNAIRE LATEX ALLERGY : HAVE YOU EVER DEVELOPED ANY TYPE OF REACTION AFTER HANDLING LATEX PRODUCTS SUCH RUBBER GLOVES, CONDOMS, DIAPHRAGMS, BALLOONS, SOCKS, OR UNDERWEAR?NO LATEX ALLERGY : HAVE YOU EVER DEVELOPED ANY TYPE OF REACTION DURING OR AFTER DENTAL APPOINTMENT, VAGINAL/RECTAL EXAMINATION, SURGICAL PROCEDURE, OR ANY OTHER EXPOSURE?YES - PLEASE INDICATE :VAGINAL EXAM DATE ASKED : 09/18/2018 LATEX RISK : HAVE YOU EVER HAD ANY DIFFICULTY BREATHING OR HIVES AFTER EATING OR HANDLING ANY FRUITS, OR VEGETABLES; SUCH KIWI, BANANAS, STONE FRUITS, OR CHESTNUTSNO LATEX RISK : DO YOU HAVE A PREVIOUS PERSONAL HISTORY OF MORE THAN NINE SURGERIES, SPINA BIFIDA, OR REPEATED CATHERIZATIONS? YES - PLEASE INDICATE : > 9 SURGERIES LATEX RISK : ARE YOU FREQUENTLY EXPOSED TO LATEX PRODUCTS IN YOUR OCCUPATION?NO ALCOHOL SCREENING DID YOU HAVE A DRINK CONTAINING ALCOHOL IN THE PAST YEAR?NO POINTS0 INTERPRETATIONNEGATIVE RECREATIONAL DRUG USE DRUG USE?NO DENIES 09/10/19 CAFFEINE CAFFEINE USE?YES SEXUAL HX HAD SEX IN THE LAST 12 MONTHS (VAGINAL, ORAL, OR ANAL)?YES HIV / HEP-C SCREENING HIV TEST OFFERED TO PATIENT:YES DATE OFFERED:12/20/2016 TEST ACCEPTED:YES SCIENTOLOGY [id number] NONE NO TENRIISM BELIEFS THAT WOULD IMPACT HEALTH CARE. LANGUAGE LANGUAGES SPOKEN:ETHIOPIAN EDUCATION LEVEL OF EDUCATION:HIGH SCHOOL LEARNING BARRIERS / SPECIAL NEEDS CHANGE FROM LAST VISIT?NO BARRIERS TO LEARNING?NO HEARING IMPAIRED?NO VISION IMPAIRED?NO COGNITIVELY IMPAIRED?NO READINESS TO LEARN?YES LEARNING PREFERENCES?NO LEARNING CAPABILITIES PRESENT?YES EMOTIONAL BARRIERS?NO SPECIAL DEVICES?NO ORE TRIMMER NEEDED?NO DOMESTIC VIOLENCE DO YOU FEEL SAFE IN YOUR ENVIRONMENT?YES OCCUPATION: UNEMPLOYED. DIET: REGULAR. EXERCISE: NO REGULAR EXERCISE. MARITAL STATUS: SINGLE. OTHERS AT HOME: CHILDREN. NEW PATIENT PAIN DIARY TODAY'S VISIT 09/10/19 PATIENT DESCRIBES PAIN :IT COMES AND GOES, SHARP FROM 0-10, WHAT LEVEL IS YOUR PAIN TODAY?6 PRECIPITATING FACTORS ACTIVITY, ANYTHING ALLEVIATING FACTORS LAYING DOWN, HEAT, MEDICATIONS IMPACT ON FUNCTION YES PAIN CLINIC PFS, CLERGY, PUBLIC HEALTH REFERRALS PFS REFERRAL NEEDED?NO CLERGY REFERRAL NEEDED?NO PUBLIC HEALTH REFERRAL NEEDED?NO WAS THE PROVIDER NOTIFIED OF ANY PERTINENT INFO? N/A HAS THE PATIENT BEEN EDUCATED REGARDING HIS/HER PLAN OF CARE?YES HAS THE PATIENT BEEN EDUCATED REGARDING PAIN, THE RISK FOR PAIN, THE IMPORTANCE OF EFFECTIVE PAIN MANAGEMENT, AND THE PAIN ASSESSMENT PROCESS?YES ADVANCE DIRECTIVE ADVANCE DIRECTIVE DISCUSSED WITH PATIENT:YES PT DOES NOT HAVE ANY ADVANCED DIRECTIVES, AND SHE DECLINES INFORMATION ON HCP AT THIS TIME. GAVE QUIT SMOKING INFO 11/17/17REVIEWED WITH PT, 01/11/18 0956 LA05/28/18 REVIEWED WITH PT. ADREVIEWED WITH PATIENT 09/18/18 1306 JSPRE-SCREENING COMPLETED 05/02/2019 1600 JSREVIEWED WITH PATIENT 05/07/19 1149 BVREVIEWED WITH PATIENT 05/27/2019 1328 JSPRE PROCEDURE PHONE CALL COMPLETED 06/14/2019 1122 NLJ. HOSPITALIZATION/MAJOR DIAGNOSTIC PROCEDURE SURGERIES PNEUMOTHORAX REVIEW OF SYSTEMS REVIEWED BY: PROVIDER: SAWYER BARAJAS . CONSTITUTIONAL: ANY CHANGE IN YOUR MEDICAL CONDITION? NO . CHILLS NO . FEVER NO . INFECTION: DO YOU HAVE NEW INFECTIONS? NO . DO YOU HAVE HISTORY OF MRSA? NO . MUSCULOSKELETAL: ANY NEW PATTERNS OF PAIN OR NUMBNESS? NO . GASTROENTEROLOGY: ANY NEW CHANGE IN BOWEL CONTROL? NO . GENITOURINARY: ANY NEW CHANGE IN BLADDER CONTROL? NO . IS THERE A CHANCE YOU COULD BE ? NO . HEMATOLOGY/LYMPH: DO YOU TAKE ANY BLOOD THINNERS? (FOR EXAMPLE- COUMADIN, PLAVIX, AGGRENOX, PLATEL, PRADAXA, OR XARELTO) NO . WHEN WAS YOUR LAST DOSE? DATE: TIME: . NEUROLOGY: HAVE YOU FALLEN IN THE PAST 12 MONTHS? NO . ANY NEW EXTREMITY NUMBNESS OR WEAKNESS? NO . CARDIOLOGY: DO YOU HAVE A PACEMAKER OR DEFIBRILLATOR? NO; DOES HAVE DORSAL COLUMN STIMULATOR . RESPIRATORY: HAVE YOU BEEN SICK IN THE PAST WEEK? NO . FEVER NO . FLU LIKE SYMPTOMS? NO . COUGH NO . INTEGUMENTARY: DO YOU HAVE ANY RASHES OR OPEN SORES? NO . ALLERGIC/IMMUNO: ARE YOU ALLERGIC TO IV DYE? NO . ANY NEW ALLERGIES? NO . PSYCHIATRIC: DO YOU HAVE THOUGHTS OF HURTING YOURSELF OR SOMEONE ELSE? NO . ARE YOU ABUSED, NEGLECTED, OR IN AN UNSAFE ENVIRONMENT? NO . ENDOCRINOLOGY: ARE YOU DIABETIC? NO . OTHER: DO YOU NEED ANY PRESCRIPTIONS? NO . IF YES, PLEASE LIST: ____ . ANY NEW PROBLEMS WITH YOUR MEDICATIONS? NO . WHEN DID YOU LAST EAT? ____ . WHEN DID YOU LAST DRINK? ____ . WHAT DID YOU LAST DRINK? ____ . NAME OF PERSON DRIVING YOU HOME? ____ . DO YOU HAVE ANY OTHER QUESTIONS OR CONCERNS NO . 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 PREVENTIVE MEDICINE PAIN CLINIC TEACHING: PROCEDURE TEACHING PRE THORACIC FACET BLOCK INSTRUCTIONS REVIEWED WITH PT. VERBALIZED UNDERSTANDING.. DISPOSITION & COMMUNICATION FOLLOW UP POST (REASON: BILAT.T7/8-T8/9 THERAPEUTIC FACET BLOCK) ELECTRONICALLY SIGNED BY KARL BARRETT ON 09/11/2019 AT 03:55 PM EDT DISCLAIMER : THIS IS A VISIT SUMMARY EXTRACTED FROM THE [employer] CHART. IT IS NOT A COPY OF THE [employer] PROGRESS NOTE. TIMOTHY
== END ==
LOC: M PAIN 13:15
PROVIDERS: ATTEND Nurse Practitioner Family
DX: M47.814 Spondylosis without myelopathy or radiculopathy, thoracic region (principal); F17.210 Nicotine dependence, cigarettes, uncomplicated; Z88.0 Allergy status to penicillin; Z88.1 Allergy status to other antibiotic agents; Z88.6 Allergy status to analgesic agent; Z88.8 Allergy status to other drugs, medicaments and biological substances; Z79.899 Other long term (current) drug therapy

== ENCOUNTER → 2019-10-20 | Outpatient (CLI) | payer MEDICARE, MEDICAID | LOC: M LABSMTC 11:00 | PROVIDERS: ATTEND Anesthesiology | DX: Z11.59 Encounter for screening for other viral diseases (principal); Z03.818 Encounter for observation for suspected exposure to other biological agents ruled out | CPT/HCPCS: C9803; U0003 ==

== ENCOUNTER → 2019-10-23 | Outpatient (CLI) | payer MEDICARE, MEDICAID ==
[~2019-10-23] MED LIST changes: +BUPIVACAINE HCL 0.25% 30ML VIAL As Ordered ONE; +ISOVUE-M 300 61% 15ML VIAL As Ordered ONE; +LIDOCAINE 1% SDV 30ML VIAL As Ordered ONE; +NORCO, ANEXSIA 5/325MG TABLET (HYDROcodone/ACETAMINOPHEN) As Ordered ONE; +TRIAMCINOLONE ACETONIDE SUSP 40 MG/ML VIAL (J3301) As Ordered ONE
--- NOTE | 2019-10-23 15:01 | REP ---
C-ARM VIEW THORACIC SPINE: CLINICAL HISTORY: Pain. A C-arm view of the mid thoracic spine region performed during thoracic facet injection by Dr. Talbot. Oscar are seen along the lateral margins of the mid thoracic spine bilaterally. 34 seconds of fluoroscopy time utilized. Electronically Signed by Nate Branch MD 10/23/2019 07:37 P
--- NOTE | 2019-10-23 15:26 | REP ---
CHEST, TWO VIEWS: Two views of the chest performed and compared to a prior study of 07/01/2019. There is no evidence of pneumothorax. There is mild stable biapical pleural thickening. There is mild pleural thickening in the left costophrenic angle. There is no acute infiltrate. The heart and mediastinum are within normal limits and unchanged. Dorsal column stimulator is again noted. There are mild degenerative changes of the spine. IMPRESSION: No evidence of pneumothorax or acute pulmonary disease. Electronically Signed by Nate Branch MD 10/23/2019 07:39 P
--- NOTE | 2019-10-24 00:31 | ECWPNPC ---
PATIENT NAME: SAEED MCLEOD : 1975 GENDER: FEMALE VISIT DATE: 10/23/2019 DISCHARGE DATE: 10/23/19 1427 VISIT LOCKED DATE TIME: PHYSICIAN: TYLER LONGO MD RESOURCE: TYLER LONGO MD REASON FOR APPOINTMENT 1. BILAT.T7/8-T8/9 THERAPEUTIC FACET BLOCK- PAT COMPLETED HISTORY OF PRESENT ILLNESS GENERAL: -. FALL RISK SCREENING: SCREENING :NO FALLS REPORTED IN THE LAST YEAR PAIN SCREENING: PATIENT HAS A COMPLAINT OF ACUTE OR CHRONIC PAIN :YES LOCATION OF PAIN:NECK, UPPER BACK, MID BACK INTENSITY OF PAIN (SCALE OF 1 TO 10):7 WHAT DOES YOUR PAIN FEEL LIKE:ACHING, BURNING, CONTINOUS, SHARP, STABBING DURATION:CONSTANT PAIN IS INCREASED BY:ACTIVITIES PAIN IS DECREASED BY:USE OF PAIN MEDICATIONS, OTHERS HEAT NURSING NOTE: -. PAIN CENTER INTAKE QUESTIONS: DO YOU HAVE A HISTORY OF MRSA? :NO DO YOU TAKE A BLOOD THINNERS? :NO DO YOU HAVE ANY BLEEDING DISORDERS? :NO ANY NEW NUMBNESS OR WEAKNESS IN YOUR LEGS OR ARMS? :YES RIGHT ARM AND HAND GO NUMB AT TIMES ANY PACEMAKER,DEFIBRILLATOR, OR DORSAL COLUMN STIMULATOR? :YES DCS DO YOU HAVE ANY RASHES OR OPEN SORES? :NO ARE YOU ALLERGIC TO IV DYE? :NO ARE YOU DIABETIC? :NO ANY NEW PROBLEMS WITH YOUR MEDICATIONS? :NO HAVE YOU RECEIVED A VACCINE IN THE PAST 30 DAYS? :NO DO YOU PLAN TO RECEIVE A VACCINE IN THE NEXT 21 DAYS? :NO DO YOU TAKE ANY IMMUNOSUPPRESSIVE MEDICATIONS? :NO ANY HISTORY OF SEIZURES? :NO ANY HISTORY OF CARDIAC ISSUES OR EVENTS? :NO DO YOU HAVE SLEEP APNEA? :NO ANY RECENT HEAD INJURY? :NO DO YOU HAVE ANY NEW INFECTIONS? :NO IS THERE A CHANCE YOU COULD BE ? :NO ARE YOU BREAST FEEDING? :NO WHEN DID YOU LAST EAT? : -LAST NIGHT WHEN DID YOU LAST DRINK? : -EARLY THIS MORNING WHAT DID YOU LAST DRINK? : -WATER NAME OF PERSON DRIVING YOU HOME? : KAREN DO YOU HAVE ANY OTHER QUESTIONS OR CONCERNS? : -NO CONCERNS EXPLAINED TO PT THAT POST PROCEDURE NEEDS CHEST XRAY CURRENT MEDICATIONS TAKING PRILOSEC DIRECTED ORALLY IF NEEDED FOR HEARTBURN, NOTES: THIS MORNING TAKING ENERGY FOCUS 1 GUMMIE ORALLY TAKES 1 GUMMIE VITAMIN B12 DAILY, NOTES: THIS MORNING TAKING NAPROXEN 500 MG TABLET 1 TABLET NEEDED ORALLY EVERY 12 HRS, NOTES: YESTERDAY TAKING DRAMAMINE 50 MG TABLET 1 TABLET NEEDED ORALLY EVERY 6 HRS, NOTES: TODAY TAKING NORCO 5-325 MG TABLET 1 TABLET NEEDED ORALLY Q8H PRN PAIN MDD3 #45 WILL LAST 30 DAYS, NOTES: YESTERDAY NOT-TAKING TIZANIDINE HCL 2 MG TABLET 1 TABLET NEEDED ORALLY BEFORE BEDTIME MAY REPEAT IN 4 HRS MDD2 NOT-TAKING ROPINIROLE HCL 0.25 MG TABLET 1 TO 2 ORALLY BEFORE BEDTIME, NOTES: HASN'T STARTED AND NOT SURE IF SHE IS GOING TO NOT-TAKING MORPHINE SULFATE 15 MG TABLET 1 ORALLY BID MDD2, NOTES: TAKES 1/2 TAB PRN NOT-TAKING CLONIDINE HCL 0.1 MG TABLET 1 TABLET ORALLY Q8H NOT-TAKING CLONIDINE HCL 0.1 MG TABLET 1 TAB ORALLY AM AND PM NOT-TAKING TYLENOL 325 MG TABLET 1 TABLET NEEDED ORALLY EVERY 4 HRS NEEDED MEDICATION LIST REVIEWED AND RECONCILED WITH THE PATIENT PAST MEDICAL HISTORY CHRONIC BACK PAIN EMG SHOWS MILD, CHRONIC L S1 AND POSSIBLY L5 RADICULOPATHY; MILD CHRONIC R L5 RADICULOPATHY (08/2015) DCS ALLERGIES ASPIRIN: SWELLING - ALLERGY GABAPENTIN: "FELT YUCKY" - SIDE EFFECTS LYRICA: FELT YUCKY" - SIDE EFFECTS PENICILLIN (FOR ALLERGIES USE ONLY): SEVERE YEAST INFECTION - SIDE EFFECTS AMOXICILLIN: SEVERE YEAST INFECTION - SIDE EFFECTS SURGICAL HISTORY LAMINECTOMY 1997 BACK SURGERY AGAIN 1998 DIAGNOSTIC LAPARASCOPY WITH ENDOMETRIOSIS ABLATION (NANDA) 2003 (?) DCS 06/26/17 PERMANENT DCS PLACEMENT 07/2017 PNEUMOTHORAX X 4 FAMILY HISTORY FATHER: , DC MOTHER: ALIVE, SKIN CANCER, DIAGNOSED WITH HYPERTENSION, OTHER MALIGNANT NEOPLASM OF UNSPECIFIED SITE SIBLINGS: ALIVE SON(S): ALIVE 2 BROTHER(S) , 1 SISTER(S) - HEALTHY. 2 SON(S) - HEALTHY. SOCIAL HISTORY GENERAL: TOBACCO USE ARE YOU A:CURRENT SMOKER ARE YOU INTERESTED IN QUITTING?READY TO QUIT CUTTING DOWN CURRENTLY, 3 A DAY RIGHT NOW COUNSELED THE PATIENT ON TOBACCO USE, CESSATION [id number]/07/2020 HOW MANY CIGARETTES A DAY DO YOU SMOKE?5 OR LESS HOW SOON AFTER YOU WAKE UP DO YOU SMOKE YOUR FIRST CIGARETTE?AFTER 60 MIN HOW OFTEN DO YOU SMOKE CIGARETTES?EVERY DAY PATIENT COUNSELED ON THE DANGERS OF TOBACCO USE AND URGED TO QUIT:10/22/2019 SMOKING CESSATION INFORMATION GIVEN05/14/2018 LATEX QUESTIONNAIRE LATEX ALLERGY : HAVE YOU EVER DEVELOPED ANY TYPE OF REACTION AFTER HANDLING LATEX PRODUCTS SUCH RUBBER GLOVES, CONDOMS, DIAPHRAGMS, BALLOONS, SOCKS, OR UNDERWEAR?NO LATEX ALLERGY : HAVE YOU EVER DEVELOPED ANY TYPE OF REACTION DURING OR AFTER DENTAL APPOINTMENT, VAGINAL/RECTAL EXAMINATION, SURGICAL PROCEDURE, OR ANY OTHER EXPOSURE?YES - PLEASE INDICATE :VAGINAL EXAM LATEX RISK : HAVE YOU EVER HAD ANY DIFFICULTY BREATHING OR HIVES AFTER EATING OR HANDLING ANY FRUITS, OR VEGETABLES; SUCH KIWI, BANANAS, STONE FRUITS, OR CHESTNUTSNO LATEX RISK : DO YOU HAVE A PREVIOUS PERSONAL HISTORY OF MORE THAN NINE SURGERIES, SPINA BIFIDA, OR REPEATED CATHERIZATIONS? YES - PLEASE INDICATE : > 9 SURGERIES LATEX RISK : ARE YOU FREQUENTLY EXPOSED TO LATEX PRODUCTS IN YOUR OCCUPATION?NO DATE ASKED : 10/22/2019 ALCOHOL SCREENING DID YOU HAVE A DRINK CONTAINING ALCOHOL IN THE PAST YEAR?NO POINTS0 INTERPRETATIONNEGATIVE RECREATIONAL DRUG USE DRUG USE?NO DENIES 09/10/19 CAFFEINE CAFFEINE USE?YES SEXUAL HX HAD SEX IN THE LAST 12 MONTHS (VAGINAL, ORAL, OR ANAL)?YES HIV / HEP-C SCREENING HIV TEST OFFERED TO PATIENT:YES DATE OFFERED:12/20/2016 TEST ACCEPTED:YES PENTECOSTALISM [id number] NONE NO BAHAI BELIEFS THAT WOULD IMPACT HEALTH CARE. LANGUAGE LANGUAGES SPOKEN:MONGOLIAN EDUCATION LEVEL OF EDUCATION:HIGH SCHOOL LEARNING BARRIERS / SPECIAL NEEDS CHANGE FROM LAST VISIT?NO BARRIERS TO LEARNING?NO HEARING IMPAIRED?NO VISION IMPAIRED?NO COGNITIVELY IMPAIRED?NO READINESS TO LEARN?YES LEARNING PREFERENCES?NO LEARNING CAPABILITIES PRESENT?YES EMOTIONAL BARRIERS?NO SPECIAL DEVICES?NO MANAGEMENT LECTURER NEEDED?NO DOMESTIC VIOLENCE DO YOU FEEL SAFE IN YOUR ENVIRONMENT?YES OCCUPATION: UNEMPLOYED. DIET: REGULAR. EXERCISE: NO REGULAR EXERCISE. MARITAL STATUS: SINGLE. OTHERS AT HOME: CHILDREN. PAIN CLINIC PFS, CLERGY, PUBLIC HEALTH REFERRALS PFS REFERRAL NEEDED?NO CLERGY REFERRAL NEEDED?NO PUBLIC HEALTH REFERRAL NEEDED?NO WAS THE PROVIDER NOTIFIED OF ANY PERTINENT INFO? N/A HAS THE PATIENT BEEN EDUCATED REGARDING HIS/HER PLAN OF CARE?YES HAS THE PATIENT BEEN EDUCATED REGARDING PAIN, THE RISK FOR PAIN, THE IMPORTANCE OF EFFECTIVE PAIN MANAGEMENT, AND THE PAIN ASSESSMENT PROCESS?YES ADVANCE DIRECTIVE ADVANCE DIRECTIVE DISCUSSED WITH PATIENT:YES PT DOES NOT HAVE ANY ADVANCED DIRECTIVES, AND SHE DECLINES INFORMATION ON HCP AT THIS TIME. GAVE QUIT SMOKING INFO 11/17/17REVIEWED WITH PT, 01/11/18 0956 LA05/28/18 REVIEWED WITH PT. ADREVIEWED WITH PATIENT 09/18/18 1306 JSPRE-SCREENING COMPLETED 05/02/2019 1600 JSREVIEWED WITH PATIENT 05/07/19 1149 BVREVIEWED WITH PATIENT 05/27/2019 1328 JSPRE PROCEDURE PHONE CALL COMPLETED 06/14/2019 1122 NLJ. HOSPITALIZATION/MAJOR DIAGNOSTIC PROCEDURE SURGERIES PNEUMOTHORAX VITAL SIGNS WT 119.0 LBS, HT 64 IN, BMI 20.42 INDEX, BP 127/60 MM HG, HR 60 /MIN, RR 18 /MIN, TEMP 98.0 F, OXYGEN SAT % 100%, SAFE IN ENV? (Y/N) YES, NA INITIALS AW 1151, REVIEWED BY: KG. EXAMINATION GENERAL EXAMINATION: THE PATIENT IS ALERT, ORIENTED TIMES THREE AND COOPERATIVE. HEART SHOWS REGULAR RHYTHM, NO MURMURS AND NO GALLOPS. LUNGS ARE CLEAR TO AUSCULTATION. 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) TREATMENT SPONDYLOSIS WITHOUT MYELOPATHY OR RADICULOPATHY, THORACIC REGION [facility] CHEST, 2 VIEW (PA\\LAT)[id number],KRISTAL 10/23/2019 01:14:21 PM - ON INSPIRATION AND EXPIRATION [facility] FACET BLOCK (PAIN)[id number] MEDICATION: NORCO TABLET 5MG/325MG ORALLY (HYDROCODONE/ACETAMINOPHEN)DEZ DHILLON 10/23/2019 12:00:26 PM - GIVE 2 TABS REINA HILL 10/23/2019 12:15:23 PM > LOT # [id number] EXP GIVEN LISA AGRAWAL RN 10/23/2019 12:22:14 PM > VERIFIED BY REINA JARRELL 10/23/2019 12:29:19 PM > DONE PER ORDER LEFT AC 1ST ATTEMPT OTHERS NOTES: 10/22/2019 1115- PRE PROCEDURE PHONE CALL COMPLETED. NLJ. PROCEDURES PAIN NURSING RECORD PRE-PROCEDURE IV SITE 22 G LEFT AC, IV STARTED # 22, IV STARTED BY: Gisselle HILL RN, IV ATTEMPTS 1, PRE-PROCEDURE ORAL MEDICATIONS SEE DOCUMENTATION PROCEDURE IN ROOM 1300, PHYSICIAN IN ROOM 1310, START 1317, FINISH 1320, PHYSICIAN OUT OF ROOM 1324, OUT OF ROOM 1329, STEROID KENALOG, O2 ROOM AIR, ECG NORMAL SINUS, PATIENT SHIELDED YES, SAFETY STRAP YES, PREP Dayana DURAN RN, IV INFUSED NO FLUIDS, DRESSING PPLIED BILATERAL BY DR LONGO LOC: 1. ALERT, ORIENTED RESP: 1. REGULAR, NO DYSPNEA COLOR: 1. PINK SKIN: 1. WARM, DRY POSITION: 1. PRONE VITALS: 1300 140/91 75 100% 18 1315 136/62 70 100% 18 1330 PT TAKEN BY WC DOWN TO XRAY ORDER PLACED IN ICW...SOME MIX UP AND THEN PUT IN TO [employer] XRAY COMPLETED PT BROUGHT BACK TO UNIT BY WC IV REMOVED SITE IS CLEAR AND CATHETER IS IN TACT. WAITING FOR RESULTS FROM STAT XRAY DR LONGO APPROVES FOR PT TO BE CALLED WITH RESULTS. REVIEWED S/S OF PNEUMO THORAX WITH PT WHO VERBALIZES UNDERSTANDING AND WHO HAS HAD THEM IN THE PAST 1415 136/66 100 ON RA AND RESPIRATIONS 18 DISCHARGE: POST PAIN 2, DRESSING SITE DRY AND INTACT INSTRUCTIONS GIVEN, IV IV REMOVED SITE CLEAR AND 2 BY 2 APPLIED TO SITE, GAIT UNSTEADY AND PT TAKEN BY , TEACHING COMPLETED, PATIENT ACKNOWLEDGES UNDERSTANDING REVIEWED ENTIRE DC INCLUDING S/S OF A PNEUMO THORAX, PATIENT DISCHARGED AT 1445 : PT CALLED AT 15OO TO STATES SHE IS "FEELING NUMBNESS IN HER CHEST, NECK AND HER ENTIRE FACE" AND IS ASKING IF THIS IS NORMAL? I DID ASK IF PT IS EXPERIENCING ANY SHORTNESS OF BREATH WHICH SHE STATES NEGATIVE. I DID CALL TO OBTAIN THE STAT READING OF CHEST XRAY WHICH DR RASMUSSEN HAS WRITTEN IT IS NEGATIVE FOR A PNEUMO THORAX. I INFORMED DR LONGO OF PTS CALL PN THORACIC FACET BLOCK THERAPEUTIC PRE PROCEDURE DIAGNOSIS THORACIC SPONDYLOSIS, THORACIC FACET ARTHROPATHY POST PROCEDURE DIAGNOSIS THORACIC SPONDYLOSIS, THORACIC FACET ARTHROPATHY PROCEDURE BILATERAL T7-T8 AND BILATERAL T8-T9 THERAPEUTIC FACET BLOCK SURGEON DR. TYLER LONGO CRIME VICTIM SPECIALIST NONE ANESTHESIA LOCAL PRE PROCEDURE NOTE THE PATIENT WITH HISTORY OF CHRONIC THORACIC PAIN. I EVALUATED THE PATIENT AND REVIEWED THE CHART. I WENT OVER THE RISKS, ALTERNATIVES, AND BENEFITS ASSOCIATED WITH THIS PROCEDURE. I DISCUSSED THAT THE USE OF STEROIDS MAY CONTRIBUTE TO IMMUNOSUPPRESSION OF THE PATIENT'S BODY AGAINST INFECTIONS SUCH COVID-19. THE PATIENT IS AWARE OF THE POTENTIAL COMPLICATIONS ASSOCIATED WITH THIS VIRUS, INCLUDING, BUT NOT LIMITED TO, . I DISCUSSED THE USE OF DEXAMETHASONE INSTEAD OF KENALOG; HOWEVER, THE PATIENT WOULD LIKE TO MOVE FORWARD WITH KENALOG. THE PATIENT WOULD LIKE TO PROCEED AND GAVE CONSENT TO PERFORM THE PROCEDURE. THE PATIENT DENIES UNEXPLAINABLE WEIGHT LOSS, FEVER, CHILLS, OR NEW CHANGES IN URINARY OR BOWEL CONTROL. THE PATIENT IS COVID-19 NEGATIVE DESCRIPTION OF PROCEDURE THE PATIENT WAS BROUGHT TO THE PROCEDURE ROOM AND PLACED IN THE PRONE POSITION. THE THORACIC AREA WAS CLEANED WITH CHLORAPREP SOLUTION AND DRAPED ASEPTICALLY. THE PROCEDURE WAS DONE UNDER STERILE CONDITIONS. I CHECKED LATERALITY AND THE LEVEL WHERE THE PROCEDURE WAS GOING TO BE PERFORMED WITH THE PATIENT AND THE SUPPORTING STAFF AT THE MOMENT OF THE TIME OUT IN THE PROCEDURE ROOM. UNDER FLUOROSCOPIC GUIDANCE, THE TARGET POINT WAS SELECTED AT THE RIGHT AND LEFT T7-T8 AND RIGHT AND LEFT T8-T9 THORACIC FACET. TARGET POINT WAS SELECTED AFTER LATERAL ROTATION AND TILT OF THE MAGNIFIER OF THE C-ARM. LIDOCAINE 0.5% WAS USED TO NUMB THE SKIN AND THE SUBCUTANEOUS TISSUE BELOW IT. SPINAL NEEDLES, 22-GAUGE, WERE ADVANCED UNDER FLUOROSCOPIC GUIDANCE AND FOLLOWING PATIENT FEEDBACK UNTIL THE TARGETS WERE TOUCHED. THE POSITION OF THE NEEDLES WAS VERIFIED WITH MULTIPLE X-RAY VIEWS. AFTER PROPER POSITION OF THE NEEDLES WAS ACHIEVED, ISOVUE-M DYE 30%, 0.1 ML, WAS INJECTED SHOWING ADEQUATE SPREAD OF THE DYE. THEN A SOLUTION OF 0.9 ML OF BUPIVACAINE 0.125% OF KENALOG 10 MG WAS INJECTED AT EACH SITE. THERE WAS NO EVIDENCE OF BLOOD, PARESTHESIA OR CEREBROSPINAL FLUID DURING THE PROCEDURE. THE PATIENT WAS SENT TO THE RECOVERY ROOM. THE PATIENT WAS MOVING THE EXTREMITIES AND DOING WELL. THERE WAS NO COMPLICATION DURING THE PROCEDURE. EBL LESS THAN 5 ML. FLUOROSCOPY TIME WAS 34 SECONDS POST PROCEDURE NOTE CONSIDER USING IV SEDATION IN THE FUTURE. THE PATIENT WILL BE SENT TO GET PA AND LATERAL CHEST X-RAY ON INSPIRATION AND EXPIRATION TO RULE OUT PNEUMOTHORAX. THE PROCEDURE DONE WAS DISCUSSED WITH THE PATIENT. THE PATIENT WILL BE SEEN IN A FOLLOW UP IN THE NEXT FEW WEEKS. I AM LOOKING FOR LONG LASTING PAIN RELIEF FOR THE PATIENT WITH THIS INTERVENTION. INSTRUCTIONS WERE GIVEN, QUESTIONS WERE ANSWERED, AND THE PATIENT EXPRESSED UNDERSTANDING AND AGREES WITH THE PLAN. THE PATIENT IS AWARE TO STAY HOME FOR THE NEXT WEEK, IF POSSIBLE, DUE TO COVID-19. I, DEZ DHILLON, DOCUMENTED THE ABOVE INFORMATION ACTING A SCRIBE FOR DR. LONGO. I HAVE REVIEWED THE ABOVE DOCUMENT, WRITTEN BY DEZ DHILLON, EBD SPECIAL EDUCATION TEACHER, AND I VERIFY THAT IT IS ACCURATE PROCEDURE CODES 37891 INJ PARAVERT F JNT C/T 1 LEV, MODIFIERS: 50 [id number] INJ PARAVERT F JNT C/T 2 LEV, MODIFIERS: 50 DISPOSITION & COMMUNICATION FOLLOW UP F/UP WITH [employer] STATISTICAL PROGRAMMER (REASON: POST THORACIC FB THERAPEUTIC TIMBO T7-T8, T8-T9) ELECTRONICALLY SIGNED BY TYLER LONGO MD, MD ON 10/23/2019 AT 04:22 PM EDT DISCLAIMER : THIS IS A VISIT SUMMARY EXTRACTED FROM THE [employer] CHART. IT IS NOT A COPY OF THE [employer] PROGRESS NOTE. MTDD
== END ==
LOC: M PAIN 11:30
PROVIDERS: ATTEND Anesthesiology
DX: M47.814 Spondylosis without myelopathy or radiculopathy, thoracic region (principal)
CPT/HCPCS: 64490; 64491; 71046; J3301; Q9967

== ENCOUNTER → 2019-11-29 | Outpatient (POV) | payer MEDICARE, MEDICAID ==
[~2019-11-29] MED LIST changes: -BUPIVACAINE HCL 0.25% 30ML VIAL As Ordered ONE; -ISOVUE-M 300 61% 15ML VIAL As Ordered ONE; -LIDOCAINE 1% SDV 30ML VIAL As Ordered ONE; -NORCO, ANEXSIA 5/325MG TABLET (HYDROcodone/ACETAMINOPHEN) As Ordered ONE; -TRIAMCINOLONE ACETONIDE SUSP 40 MG/ML VIAL (J3301) As Ordered ONE
== END ==
LOC: M PAIN 10:15
PROVIDERS: ATTEND Nurse Practitioner Family
DX: M47.814 Spondylosis without myelopathy or radiculopathy, thoracic region (principal)

== ENCOUNTER → 2020-01-15 | Outpatient (CLI) | payer MEDICARE, MEDICAID | LOC: M PAIN 11:01 | PROVIDERS: ATTEND Nurse Practitioner Family | DX: M96.1 Postlaminectomy syndrome, not elsewhere classified (principal); Z79.891 Long term (current) use of opiate analgesic ==

== ENCOUNTER → 2020-01-30 | Outpatient (CLI) | payer MEDICARE, MEDICAID | LOC: M RAD 10:38 | PROVIDERS: ATTEND Nurse Practitioner Family | DX: M54.13 Radiculopathy, cervicothoracic region (principal) ==

== ENCOUNTER → 2020-02-21 | Outpatient (CLI) | payer MEDICARE, MEDICAID ==
--- NOTE | 2020-02-27 04:55 | ECWPNPC ---
PATIENT NAME: SAEED MCLEOD : 1975 GENDER: FEMALE VISIT DATE: 02/21/2020 DISCHARGE DATE: 02/21/20 1139 VISIT LOCKED DATE TIME: PHYSICIAN: SAWYER CASE PHYSICIAN PAGER NO: ACTIVE RESOURCE: SAWYER CASE REASON FOR APPOINTMENT 1. BACK PAIN-2 MONTH FU HISTORY OF PRESENT ILLNESS DEPRESSION SCREENING: PHQ-2 (2015 EDITION) LITTLE INTEREST OR PLEASURE IN DOING THINGS?NOT AT ALL FEELING DOWN, DEPRESSED, OR HOPELESS?NOT AT ALL TOTAL SCORE0 GENERAL: KYE IS BEING SEEN FOR A FOLLOW-UP OF THORACIC AND LOW BACK PAIN AND TO REVIEW MRI IMAGING DONE RECENTLY. SHE HAD A BAD EXPERIENCE WITH MRI AT [facility] LAST WEEK. STATES DURING PROCEDURE DCS UNIT HEATED UP AND SHE WAS BURNING. HAS NOT USED DCS UNIT SINCE. SHE WAS TOLD BY DR. LONGO AND [employer] THAT DORSAL COLUMN STIMULATOR IS MRI COMPATIBLE. STATES SHE COULDN'T HAVE IT DONE AT [facility] IT WAS TOO HIGH OR INTENSE SO SHE WENT TO A LOWER INTENSITY MRI UNIT AT [facility]. SINCE MRI SHE'S BEEN HAVING PARESTHESIAS THAT RADIATE FROM HER THORACIC SPINE INTO HER ARMS BILATERALLY. THERE IS NO OBVIOUS RED KHAN OR SWELLING ON HER BACK. SHE WILL NOT TURN DORSAL COLUMN STIMULATOR ON SHE IS FEARFUL.-MRI OF THE THORACIC SPINE IS REVIEWED. SHOWING MULTILEVEL DEGENERATIVE DISC PROTRUSIONS. FALL RISK SCREENING: SCREENING :NO FALLS REPORTED IN THE LAST YEAR NONE PAIN SCREENING: PATIENT HAS A COMPLAINT OF ACUTE OR CHRONIC PAIN :YES LOCATION OF PAIN:MID BACK PAIN STARTS AT MID BACK MOVES UP TO THE TIP OF HER NECK INTENSITY OF PAIN (SCALE OF 1 TO 10):7 WHAT DOES YOUR PAIN FEEL LIKE:ACHING, BURNING, THROBBING, SHOOTING DURATION:CONTINOUS, ALL DAY PAIN IS INCREASED BY:ACTIVITIES PAIN IS DECREASED BY:USE OF PAIN MEDICATIONS NURSING NOTE: -. PAIN CENTER INTAKE QUESTIONS: DO YOU HAVE A HISTORY OF MRSA? :NO DO YOU TAKE A BLOOD THINNERS? :NO DO YOU HAVE ANY BLEEDING DISORDERS? :NO ANY NEW NUMBNESS OR WEAKNESS IN YOUR LEGS OR ARMS? :NO ANY PACEMAKER,DEFIBRILLATOR, OR DORSAL COLUMN STIMULATOR? :YES DORSAL COLUM STIMULATOR, PUT IN 2017 DO YOU HAVE ANY RASHES OR OPEN SORES? :NO ARE YOU ALLERGIC TO IV DYE? :NO ARE YOU DIABETIC? :NO ANY NEW PROBLEMS WITH YOUR MEDICATIONS? :NO HAVE YOU RECEIVED A VACCINE IN THE PAST 30 DAYS? :NO DO YOU PLAN TO RECEIVE A VACCINE IN THE NEXT 21 DAYS? :NO DO YOU NEED ANY PRESCRIPTION? :YES HYDROCODONE 5/325 MG- K[place]NE[place] ON [address] DO YOU TAKE ANY IMMUNOSUPPRESSIVE MEDICATIONS? :NO IS THERE A CHANCE YOU COULD BE ? :NO ARE YOU BREAST FEEDING? :NO CURRENT MEDICATIONS TAKING PRILOSEC DIRECTED ORALLY IF NEEDED FOR HEARTBURN, NOTES: THIS MORNING TAKING ENERGY FOCUS 1 GUMMIE ORALLY TAKES 1 GUMMIE VITAMIN B12 DAILY, NOTES: THIS MORNING TAKING NAPROXEN 500 MG TABLET 1 TABLET NEEDED ORALLY EVERY 12 HRS, NOTES: YESTERDAY TAKING DRAMAMINE 50 MG TABLET 1 TABLET NEEDED ORALLY EVERY 6 HRS, NOTES: TODAY TAKING NORCO 5-325 MG TABLET 1 TABLET NEEDED ORALLY Q8H PRN PAIN MDD3 #45 WILL LAST 30 DAYS, NOTES: YESTERDAY NOT-TAKING TIZANIDINE HCL 2 MG TABLET 1 TABLET NEEDED ORALLY BEFORE BEDTIME MAY REPEAT IN 4 HRS MDD2 NOT-TAKING ROPINIROLE HCL 0.25 MG TABLET 1 TO 2 ORALLY BEFORE BEDTIME, NOTES: HASN'T STARTED AND NOT SURE IF SHE IS GOING TO NOT-TAKING MORPHINE SULFATE 15 MG TABLET 1 ORALLY BID MDD2, NOTES: TAKES 1/2 TAB PRN NOT-TAKING CLONIDINE HCL 0.1 MG TABLET 1 TABLET ORALLY Q8H NOT-TAKING CLONIDINE HCL 0.1 MG TABLET 1 TAB ORALLY AM AND PM NOT-TAKING TYLENOL 325 MG TABLET 1 TABLET NEEDED ORALLY EVERY 4 HRS NEEDED MEDICATION LIST REVIEWED AND RECONCILED WITH THE PATIENT PAST MEDICAL HISTORY CHRONIC BACK PAIN EMG SHOWS MILD, CHRONIC L S1 AND POSSIBLY L5 RADICULOPATHY; MILD CHRONIC R L5 RADICULOPATHY (08/2015) DCS ALLERGIES ASPIRIN: SWELLING - ALLERGY GABAPENTIN: "FELT YUCKY" - SIDE EFFECTS LYRICA: FELT YUCKY" - SIDE EFFECTS PENICILLIN (FOR ALLERGIES USE ONLY): SEVERE YEAST INFECTION - SIDE EFFECTS AMOXICILLIN: SEVERE YEAST INFECTION - SIDE EFFECTS SURGICAL HISTORY LAMINECTOMY 1998 BACK SURGERY AGAIN 1998 DIAGNOSTIC LAPARASCOPY WITH ENDOMETRIOSIS ABLATION (NANDA) 2003 (?) DCS 06/26/17 PERMANENT DCS PLACEMENT 07/2017 PNEUMOTHORAX X 4 FAMILY HISTORY FATHER: , [place] MOTHER: ALIVE, SKIN CANCER, DIAGNOSED WITH HYPERTENSION, OTHER MALIGNANT NEOPLASM OF UNSPECIFIED SITE SIBLINGS: ALIVE SON(S): ALIVE 2 BROTHER(S) , 1 SISTER(S) - HEALTHY. 2 SON(S) - HEALTHY. SOCIAL HISTORY GENERAL: TOBACCO USE ARE YOU A:CURRENT SMOKER HOW OFTEN DO YOU SMOKE CIGARETTES?EVERY DAY HOW SOON AFTER YOU WAKE UP DO YOU SMOKE YOUR FIRST CIGARETTE?AFTER 60 MIN HOW MANY CIGARETTES A DAY DO YOU SMOKE?5 OR LESS ARE YOU INTERESTED IN QUITTING?READY TO QUIT CUTTING DOWN CURRENTLY, 3 A DAY RIGHT NOW PATIENT COUNSELED ON THE DANGERS OF TOBACCO USE AND URGED TO QUIT:10/22/2019 COUNSELED THE PATIENT ON TOBACCO USE, CESSATION [id number]/07/2020 SMOKING CESSATION INFORMATION GIVEN05/14/2018 LATEX QUESTIONNAIRE LATEX ALLERGY : HAVE YOU EVER DEVELOPED ANY TYPE OF REACTION AFTER HANDLING LATEX PRODUCTS SUCH RUBBER GLOVES, CONDOMS, DIAPHRAGMS, BALLOONS, SOCKS, OR UNDERWEAR?NO LATEX ALLERGY : HAVE YOU EVER DEVELOPED ANY TYPE OF REACTION DURING OR AFTER DENTAL APPOINTMENT, VAGINAL/RECTAL EXAMINATION, SURGICAL PROCEDURE, OR ANY OTHER EXPOSURE?YES - PLEASE INDICATE :VAGINAL EXAM LATEX RISK : HAVE YOU EVER HAD ANY DIFFICULTY BREATHING OR HIVES AFTER EATING OR HANDLING ANY FRUITS, OR VEGETABLES; SUCH KIWI, BANANAS, STONE FRUITS, OR CHESTNUTSNO LATEX RISK : DO YOU HAVE A PREVIOUS PERSONAL HISTORY OF MORE THAN NINE SURGERIES, SPINA BIFIDA, OR REPEATED CATHERIZATIONS? YES - PLEASE INDICATE : > 9 SURGERIES LATEX RISK : ARE YOU FREQUENTLY EXPOSED TO LATEX PRODUCTS IN YOUR OCCUPATION?NO DATE ASKED : 02/21/2020 ALCOHOL SCREENING DID YOU HAVE A DRINK CONTAINING ALCOHOL IN THE PAST YEAR?NO POINTS0 INTERPRETATIONNEGATIVE RECREATIONAL DRUG USE DRUG USE?NO DENIES 09/10/19 CAFFEINE CAFFEINE USE?YES SEXUAL HX HAD SEX IN THE LAST 12 MONTHS (VAGINAL, ORAL, OR ANAL)?YES HIV / HEP-C SCREENING HIV TEST OFFERED TO PATIENT:YES DATE OFFERED:12/20/2016 TEST ACCEPTED:YES SYNAGOGUE [id number] NONE NO MU-ISM BELIEFS THAT WOULD IMPACT HEALTH CARE. 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 DIET: REGULAR. EXERCISE: NO REGULAR EXERCISE. MARITAL STATUS: SINGLE. OTHERS AT HOME: CHILDREN. PAIN CLINIC PFS, CLERGY, PUBLIC HEALTH REFERRALS PFS REFERRAL NEEDED?NO CLERGY REFERRAL NEEDED?NO PUBLIC HEALTH REFERRAL NEEDED?NO WAS THE PROVIDER NOTIFIED OF ANY PERTINENT INFO? N/A HAS THE PATIENT BEEN EDUCATED REGARDING HIS/HER PLAN OF CARE?YES HAS THE PATIENT BEEN EDUCATED REGARDING PAIN, THE RISK FOR PAIN, THE IMPORTANCE OF EFFECTIVE PAIN MANAGEMENT, AND THE PAIN ASSESSMENT PROCESS?YES ADVANCE DIRECTIVE ADVANCE DIRECTIVE DISCUSSED WITH PATIENT:YES PT DOES NOT HAVE ANY ADVANCED DIRECTIVES, AND SHE DECLINES INFORMATION ON HCP AT THIS TIME. GAVE QUIT SMOKING INFO 11/17/17REVIEWED WITH PT, 01/11/18 0956 LA05/28/18 REVIEWED WITH PT. ADREVIEWED WITH PATIENT 09/18/18 1306 JSPRE-SCREENING COMPLETED 05/02/2019 1600 JSREVIEWED WITH PATIENT 05/07/19 1149 BVREVIEWED WITH PATIENT 05/27/2019 1328 JSPRE PROCEDURE PHONE CALL COMPLETED 06/14/2019 1122 NLJ. HOSPITALIZATION/MAJOR DIAGNOSTIC PROCEDURE SURGERIES PNEUMOTHORAX MRI- WENT TO ER HAD A ISSUE WITH HER DORSAL COLUM STIMULATOR [employer] HEATED UP AND BURNED HER MUSCLES FROM THE INSIDE SHE WAS SENT TO THE ER AFTERWORDS, 1ST MRI WITH THE DORSAL COLUM STIMULATOR 02/13/2020 REVIEW OF SYSTEMS REVIEWED BY: PROVIDER: SAWYER BARAJAS . CONSTITUTIONAL: ANY CHANGE IN YOUR MEDICAL CONDITION? NO . CHILLS NO . FEVER NO . INFECTION: DO YOU HAVE NEW INFECTIONS? NO . DO YOU HAVE HISTORY OF MRSA? NO . MUSCULOSKELETAL: ANY UNUSUAL JOINT PAIN OR SWELLING NOT MENTIONED NO . GASTROENTEROLOGY: ANY NEW CHANGE IN BOWEL CONTROL? NO . GENITOURINARY: ANY NEW CHANGE IN BLADDER CONTROL? NO . IS THERE A CHANCE YOU COULD BE ? NO . HEMATOLOGY/LYMPH: DO YOU TAKE ANY BLOOD THINNERS? (FOR EXAMPLE- COUMADIN, PLAVIX, AGGRENOX, PLATEL, PRADAXA, OR XARELTO) NO . WHEN WAS YOUR LAST DOSE? DATE: TIME: . NEUROLOGY: HAVE YOU FALLEN IN THE PAST 12 MONTHS? NO . OTHER NEW NUMBNESS OR PAIN PATTERNS NOT MENTIONED NO . CARDIOLOGY: DO YOU HAVE A PACEMAKER OR DEFIBRILLATOR? NO; DOES HAVE DORSAL COLUMN STIMULATOR . RESPIRATORY: HAVE YOU BEEN SICK IN THE PAST WEEK? NO . FEVER NO . FLU LIKE SYMPTOMS? NO . COUGH NO . INTEGUMENTARY: DO YOU HAVE ANY RASHES OR OPEN SORES? NO . ALLERGIC/IMMUNO: ARE YOU ALLERGIC TO IV DYE? NO . ANY NEW ALLERGIES? NO . PSYCHIATRIC: DO YOU HAVE THOUGHTS OF HURTING YOURSELF OR SOMEONE ELSE? NO . ARE YOU ABUSED, NEGLECTED, OR IN AN UNSAFE ENVIRONMENT? NO . ENDOCRINOLOGY: ARE YOU DIABETIC? NO . OTHER: DO YOU NEED ANY PRESCRIPTIONS? NO . IF YES, PLEASE LIST: ____ . ANY NEW PROBLEMS WITH YOUR MEDICATIONS? NO . WHEN DID YOU LAST EAT? ____ . WHEN DID YOU LAST DRINK? ____ . WHAT DID YOU LAST DRINK? ____ . NAME OF PERSON DRIVING YOU HOME? ____ . DO YOU HAVE ANY OTHER QUESTIONS OR CONCERNS NO . VITAL SIGNS WT 120.6 LBS, HT 64 IN, BMI 20.70 INDEX, BP 133/70 MM HG, HR 78 /MIN, RR 18 /MIN, TEMP 98.0 F, OXYGEN SAT % 99%, SAFE IN ENV? (Y/N) YES, NA INITIALS AW 1017, REVIEWED BY: TEO. EXAMINATION GENERAL EXAMINATION: GENERALNO ACUTE DISTRESS, WELL NOURISHED AND HYDRATED. PSYCHAPPROPRIATE MOOD AND AFFECT . NECK:NO LYMPHADENOPATHY, SUPPLE. LUNGS:CLEAR TO AUSCULTATION BILATERALLY, NO WHEEZES, RHONCHI, RALES. HEART:NO MURMURS, REGULAR RATE AND RHYTHM. BACK:NO REDNESS OR SWELLING . INCISIONAL AREAS WELL-HEALED. REPORTING TENDERNESS IN THE THORACIC PARASPINAL REGION. . ASSESSMENTS SPONDYLOSIS WITHOUT MYELOPATHY OR RADICULOPATHY, THORACIC REGION - M47.814 TREATMENT SPONDYLOSIS WITHOUT MYELOPATHY OR RADICULOPATHY, THORACIC REGION STOP NORCO TABLET, 5-325 MG, 1 TABLET NEEDED, ORALLY, Q8H PRN PAIN MDD3 #45 WILL LAST 30 DAYS, NOTES: YESTERDAY OTHERS START HYDROCODONE-ACETAMINOPHEN TABLET, 10-325 MG, 1 TABLET NEEDED, ORALLY, Q8H PRN MDD2 #60 TAB SHOULD LAST 30 DAYS, 30 DAYS, 60, REFILLS 0 NOTES: PATIENT WAS GIVEN A REFILL OF HYDROCODONE 5/325 LAST WEEK. SHE IS SUPPOSED TO BE ON 10/325 TWICE A DAY. SHE HAS BEEN USING HYDROCODONE 5/325 2 TABLETS MORNING AND NIGHT WHICH IS SOMEWHAT HELPFUL TO RELIEVE HER PAIN. TODAY I PUT IN A PRESCRIPTION FOR HYDROCODONE 10/325 MAX 2 TABLETS A DAY #60 FOR 30 DAY SUPPLY. SHE WILL USE UP 5/325 TAKING 2 TABLETS TWICE A DAY UNTIL THEY'RE GONE AND THEN SHE CAN PERFORMING ARTIST THAT PRESCRIPTION. PROCEDURE CODES FA211 ESTABILISHED PATIENT [facility] CHARGE DISPOSITION & COMMUNICATION FOLLOW UP NEXT WEEK WITH DR. LONGO/DORSAL COLUMN STIMULATOR ISSUES (REASON: DORSAL COLUMN STIMULATOR PROBLEMS AFTER MRI LAST WEEK) ELECTRONICALLY SIGNED BY KARL BARRETT ON 02/26/2020 AT 02:37 PM EDT DISCLAIMER : THIS IS A VISIT SUMMARY EXTRACTED FROM THE [employer] CHART. IT IS NOT A COPY OF THE [employer] PROGRESS NOTE. TIMOTHY
== END ==
LOC: M PAIN 10:00
PROVIDERS: ATTEND Nurse Practitioner Family
DX: M47.814 Spondylosis without myelopathy or radiculopathy, thoracic region (principal); F17.210 Nicotine dependence, cigarettes, uncomplicated; Z96.89 Presence of other specified functional implants; Z88.0 Allergy status to penicillin; Z88.1 Allergy status to other antibiotic agents; Z88.6 Allergy status to analgesic agent; Z88.8 Allergy status to other drugs, medicaments and biological substances; Z79.899 Other long term (current) drug therapy

== ENCOUNTER → 2020-02-26 | Outpatient (CLI) | payer MEDICARE, MEDICAID ==
--- NOTE | 2020-03-07 00:24 | ECWPNPC ---
PATIENT NAME: SAEED MCLEOD : 1975 GENDER: FEMALE VISIT DATE: 02/26/2020 DISCHARGE DATE: 02/26/20 1440 VISIT LOCKED DATE TIME: PHYSICIAN: TYLER LONGO MD PHYSICIAN PAGER NO: ACTIVE RESOURCE: TYLER LONGO MD REASON FOR APPOINTMENT 1. DORSAL COLUMN STIMULATOR PROBLEMS AFTER MRI LAST WEEK HISTORY OF PRESENT ILLNESS GENERAL: 45-YEAR-OLD FEMALE PATIENT WITH A HISTORY OF CHRONIC LOW BACK, NECK AND THORACIC PAIN. THE PATIENT HAD AN MRI OF THE THORACIC AND CERVICAL REGION 2 WEEKS AGO AND STATES THAT AT THE LAST 15 MINUTES, SHE STARTED TO FEEL LIKE HER BACK, ARMS AND CHEST WERE GETTING HOT. SHE STATES THAT AFTER THE MRI SHE HAD A SHORT INSTANCE OF NOT BEING ABLE TO MOVE OR TALK. AFTER THE MRI, SHE STATED THAT SHE WASN'T FEELING RIGHT SO SHE WENT TO THE ER WHERE THEY TOLD HER THAT THEY BELIEVE HER COILS HEATED UP. THEY OBSERVED HER FOR A WHILE AND THEN SENT HER HOME. THE PATIENT STATES A "LIGHTENING FEELING" IN HER MUSCLES THAT SHOOTS FROM HER BACK DOWN HER ARMS AND SHE STATES THAT SHE FEELS "COMPLETELY WIPED OUT" AFTER THESE EPISODES. THE PATIENT STATES THAT THE LANCING IS MORE ON THE RIGHT SIDE, A LITTLE LOWER THAN THE BRA LINE AND TRAVELS EITHER UP TO HER CLAVICLE OR GOES TO THE LATERAL THORACIC AREA. SHE STATES THAT SHE IS UNSURE HOW MANY TIMES THIS HAPPENS. THE PATIENT STATES THAT SHE IS TOO AFRAID TO TURN BACK ON HER DCS. PATIENT DENIES UNEXPLAINABLE WEIGHT LOSS, FEVER, CHILLS, NEW CHANGES ON HER URINARY OR BOWEL CONTROL. FALL RISK SCREENING: SCREENING :NO FALLS REPORTED IN THE LAST YEAR PAIN SCREENING: PATIENT HAS A COMPLAINT OF ACUTE OR CHRONIC PAIN :YES LOCATION OF PAIN: CERVICAL AND THORACIC INTENSITY OF PAIN (SCALE OF 1 TO 10):5 WHAT DOES YOUR PAIN FEEL LIKE:CONTINOUS CHRONIC PAIN DURATION:CONTINOUS PAIN IS INCREASED BY:ACTIVITIES PAIN IS DECREASED BY:USE OF PAIN MEDICATIONS NOTHING REALLY HELPS RIGHT NOW NURSING NOTE: -. PAIN CENTER INTAKE QUESTIONS: DO YOU HAVE A HISTORY OF MRSA? :NO DO YOU TAKE A BLOOD THINNERS? :NO DO YOU HAVE ANY BLEEDING DISORDERS? :NO ANY NEW NUMBNESS OR WEAKNESS IN YOUR LEGS OR ARMS? :NO ANY PACEMAKER,DEFIBRILLATOR, OR DORSAL COLUMN STIMULATOR? :YES DCS IN LOWER BACK DO YOU HAVE ANY RASHES OR OPEN SORES? :NO ARE YOU ALLERGIC TO IV DYE? :NO ARE YOU DIABETIC? :NO ANY NEW PROBLEMS WITH YOUR MEDICATIONS? :NO HAVE YOU RECEIVED A VACCINE IN THE PAST 30 DAYS? :NO DO YOU PLAN TO RECEIVE A VACCINE IN THE NEXT 21 DAYS? :NO DO YOU NEED ANY PRESCRIPTION? :NO DO YOU TAKE ANY IMMUNOSUPPRESSIVE MEDICATIONS? :NO ANY HISTORY OF SEIZURES? :NO ANY HISTORY OF CARDIAC ISSUES OR EVENTS? :NO DO YOU HAVE SLEEP APNEA? :NO ANY RECENT HEAD INJURY? :NO IS THERE A CHANCE YOU COULD BE ? :NO ARE YOU BREAST FEEDING? :NO CURRENT MEDICATIONS TAKING PRILOSEC DIRECTED ORALLY IF NEEDED FOR HEARTBURN TAKING ENERGY FOCUS 1 GUMMIE ORALLY TAKES 1 GUMMIE VITAMIN B12 DAILY TAKING NAPROXEN 500 MG TABLET 1 TABLET NEEDED ORALLY EVERY 12 HRS TAKING DRAMAMINE 50 MG TABLET 1 TABLET NEEDED ORALLY EVERY 6 HRS TAKING HYDROCODONE-ACETAMINOPHEN 10-325 MG TABLET 1 TABLET NEEDED ORALLY Q8H PRN MDD2 #60 TAB SHOULD LAST 30 DAYS NOT-TAKING TIZANIDINE HCL 2 MG TABLET 1 TABLET NEEDED ORALLY BEFORE BEDTIME MAY REPEAT IN 4 HRS MDD2 NOT-TAKING ROPINIROLE HCL 0.25 MG TABLET 1 TO 2 ORALLY BEFORE BEDTIME, NOTES: HASN'T STARTED AND NOT SURE IF SHE IS GOING TO NOT-TAKING MORPHINE SULFATE 15 MG TABLET 1 ORALLY BID MDD2, NOTES: TAKES 1/2 TAB PRN NOT-TAKING CLONIDINE HCL 0.1 MG TABLET 1 TABLET ORALLY Q8H NOT-TAKING CLONIDINE HCL 0.1 MG TABLET 1 TAB ORALLY AM AND PM NOT-TAKING TYLENOL 325 MG TABLET 1 TABLET NEEDED ORALLY EVERY 4 HRS NEEDED MEDICATION LIST REVIEWED AND RECONCILED WITH THE PATIENT PAST MEDICAL HISTORY CHRONIC BACK PAIN EMG SHOWS MILD, CHRONIC L S1 AND POSSIBLY L5 RADICULOPATHY; MILD CHRONIC R L5 RADICULOPATHY (08/2015) DCS ALLERGIES ASPIRIN: SWELLING - ALLERGY GABAPENTIN: "FELT YUCKY" - SIDE EFFECTS LYRICA: FELT YUCKY" - SIDE EFFECTS PENICILLIN (FOR ALLERGIES USE ONLY): SEVERE YEAST INFECTION - SIDE EFFECTS AMOXICILLIN: SEVERE YEAST INFECTION - SIDE EFFECTS SURGICAL HISTORY LAMINECTOMY 1997 BACK SURGERY AGAIN 1998 DIAGNOSTIC LAPARASCOPY WITH ENDOMETRIOSIS ABLATION (NANDA) 2003 (?) DCS 06/26/17 PERMANENT DCS PLACEMENT 07/2017 PNEUMOTHORAX X 4 FAMILY HISTORY FATHER: , [place] MOTHER: ALIVE, SKIN CANCER, DIAGNOSED WITH HYPERTENSION, OTHER MALIGNANT NEOPLASM OF UNSPECIFIED SITE SIBLINGS: ALIVE SON(S): ALIVE 2 BROTHER(S) , 1 SISTER(S) - HEALTHY. 2 SON(S) - HEALTHY. SOCIAL HISTORY GENERAL: TOBACCO USE ARE YOU A:CURRENT SMOKER ARE YOU INTERESTED IN QUITTING?READY TO QUIT CUTTING DOWN CURRENTLY, 3 A DAY RIGHT NOW COUNSELED THE PATIENT ON TOBACCO USE, CESSATION [id number]/07/2020 HOW MANY CIGARETTES A DAY DO YOU SMOKE?5 OR LESS HOW SOON AFTER YOU WAKE UP DO YOU SMOKE YOUR FIRST CIGARETTE?AFTER 60 MIN HOW OFTEN DO YOU SMOKE CIGARETTES?EVERY DAY PATIENT COUNSELED ON THE DANGERS OF TOBACCO USE AND URGED TO QUIT:02/26/2020 SMOKING CESSATION INFORMATION GIVEN05/14/2018 LATEX QUESTIONNAIRE LATEX ALLERGY : HAVE YOU EVER DEVELOPED ANY TYPE OF REACTION AFTER HANDLING LATEX PRODUCTS SUCH RUBBER GLOVES, CONDOMS, DIAPHRAGMS, BALLOONS, SOCKS, OR UNDERWEAR?NO LATEX ALLERGY : HAVE YOU EVER DEVELOPED ANY TYPE OF REACTION DURING OR AFTER DENTAL APPOINTMENT, VAGINAL/RECTAL EXAMINATION, SURGICAL PROCEDURE, OR ANY OTHER EXPOSURE?YES - PLEASE INDICATE :VAGINAL EXAM LATEX RISK : HAVE YOU EVER HAD ANY DIFFICULTY BREATHING OR HIVES AFTER EATING OR HANDLING ANY FRUITS, OR VEGETABLES; SUCH KIWI, BANANAS, STONE FRUITS, OR CHESTNUTSNO LATEX RISK : DO YOU HAVE A PREVIOUS PERSONAL HISTORY OF MORE THAN NINE SURGERIES, SPINA BIFIDA, OR REPEATED CATHERIZATIONS? YES - PLEASE INDICATE : > 9 SURGERIES LATEX RISK : ARE YOU FREQUENTLY EXPOSED TO LATEX PRODUCTS IN YOUR OCCUPATION?NO DATE ASKED : 02/26/2020 ALCOHOL SCREENING DID YOU HAVE A DRINK CONTAINING ALCOHOL IN THE PAST YEAR?NO POINTS0 INTERPRETATIONNEGATIVE RECREATIONAL DRUG USE DRUG USE?NO DENIES 09/10/19 CAFFEINE CAFFEINE USE?YES SEXUAL HX HAD SEX IN THE LAST 12 MONTHS (VAGINAL, ORAL, OR ANAL)?YES HIV / HEP-C SCREENING HIV TEST OFFERED TO PATIENT:YES DATE OFFERED:12/20/2016 TEST ACCEPTED:YES ORTHODOXY [id number] NONE NO YAZDANISM BELIEFS THAT WOULD IMPACT HEALTH CARE. 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 DIET: REGULAR. EXERCISE: NO REGULAR EXERCISE. MARITAL STATUS: SINGLE. OTHERS AT HOME: CHILDREN. PAIN CLINIC PFS, CLERGY, PUBLIC HEALTH REFERRALS PFS REFERRAL NEEDED?NO CLERGY REFERRAL NEEDED?NO PUBLIC HEALTH REFERRAL NEEDED?NO WAS THE PROVIDER NOTIFIED OF ANY PERTINENT INFO? N/A HAS THE PATIENT BEEN EDUCATED REGARDING HIS/HER PLAN OF CARE?YES HAS THE PATIENT BEEN EDUCATED REGARDING PAIN, THE RISK FOR PAIN, THE IMPORTANCE OF EFFECTIVE PAIN MANAGEMENT, AND THE PAIN ASSESSMENT PROCESS?YES ADVANCE DIRECTIVE ADVANCE DIRECTIVE DISCUSSED WITH PATIENT:YES PT DOES NOT HAVE ANY ADVANCED DIRECTIVES, AND SHE DECLINES INFORMATION ON HCP AT THIS TIME. GAVE QUIT SMOKING INFO 11/17/17REVIEWED WITH PT, 01/11/18 0956 LA05/28/18 REVIEWED WITH PT. ADREVIEWED WITH PATIENT 09/18/18 1306 JSPRE-SCREENING COMPLETED 05/02/2019 1600 JSREVIEWED WITH PATIENT 05/07/19 1149 BVREVIEWED WITH PATIENT 05/27/2019 1328 JSPRE PROCEDURE PHONE CALL COMPLETED 06/14/2019 1122 NLJ. HOSPITALIZATION/MAJOR DIAGNOSTIC PROCEDURE SURGERIES PNEUMOTHORAX MRI- WENT TO ER HAD A ISSUE WITH HER DORSAL COLUM STIMULATOR [employer] HEATED UP AND BURNED HER MUSCLES FROM THE INSIDE SHE WAS SENT TO THE ER AFTERWORDS, 1ST MRI WITH THE DORSAL COLUM STIMULATOR 02/13/2020 REVIEW OF SYSTEMS CONSTITUTIONAL: ANY RECENT FEVER NO . CHILLS NO . WEIGHT CHANGE OF UNKNOWN REASONS NO . GASTROENTEROLOGY: NEW UNEXPLAINABLE CHANGES IN BOWEL CONTROL NO . CONSTIPATION NO . GENITOURINARY: ANY NEW CHANGE IN BLADDER CONTROL? NO . NEUROLOGY: NEW ONSET DIZZINESS OR NEUROLOGICAL CHANGES NOT MENTIONED NO . NEW NUMBNESS OR PAIN PATTERNS NOT MENTIONED AND PERTINENT TO TODAY'S VISIT NO . CARDIOLOGY: NEW CHEST PRESSURE NO . NEW CHEST PAIN NO . RESPIRATORY: UNEXPLAINABLE COUGH NO . NEW SHORTNESS OF BREATH NO . VITAL SIGNS WT 119.2 LBS, HT 64 IN, BMI 20.46 INDEX, BP 144/76 MM HG, HR 75 /MIN, RR 18 /MIN, TEMP 98 F, OXYGEN SAT % 100%, SAFE IN ENV? (Y/N) YES, NA INITIALS AW 1521REVIEWED N WHIT BARRERA. EXAMINATION GENERAL EXAMINATION: THE PATIENT IS ALERT, ORIENTED TIMES THREE AND COOPERATIVE. HEART SHOWS REGULAR RHYTHM, NO MURMURS AND NO GALLOPS. LUNGS ARE CLEAR TO AUSCULTATION. THE ARMS ARE GENERALLY WEAK IN BOTH SIDES ON FLEXION AND EXTENSION. 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 LEFT LEG IS WEAKER THAN THE RIGHT LEG IN FLEXION AND EXTENSION. STRAIGHT LEG RAISE IN THE LEFT LEG IS POSITIVE FOR RADICULOPATHY AT 80 DEGREES. CERVICAL MRI DATED 02/13/2020 SHOWS SOME DISC PROTRUSION, SOME FORAMINAL NARROWING. THORACIC MRI DATED 02/13/2020 SHOWS DISC PROTRUSION AT MULTIPLE LEVELS. ASSESSMENTS LUMBAR POST-LAMINECTOMY SYNDROME - M96.1 (PRIMARY), STATUS POST DCS TRIAL THORACIC BACK PAIN - M54.6, STATUS POST THORACIC AND CERVICAL MRI TREATMENT LUMBAR POST-LAMINECTOMY SYNDROME START LIDODERM PATCH, 5 %, 2 PATCH REMOVE AFTER 12 HOURS, EXTERNALLY AT PAINFULL BACK AREA, ONCE A DAY, 30 DAYS, 60, REFILLS 0 CLINICAL NOTES: I DISCUSSED ALTERNATIVES WITH MS. MCLEOD. I WILL LOOK INTO THIS IN MORE DETAIL WITH [employer]. I WILL ORDER A LIDODERM PATCH TO BE USED AT THE BACK AREA WHERE THE LEADS ARE IF THE PAIN COMES BACK. TODAY, SAEED TURNED ON THE DEVICE WITH SAM ADAMS FROM [employer]. AFTER SHE USED IT FOR SEVERAL MINUTES, SHE STARTED TO EXPERIENCE SOME BURNING AND ACHING SO SHE DECIDED TO TURN IT OFF. I CAME BACK TO TALK WITH SAEED SEVERELY MINUTES AFTER SHE TURNED IT OFF AND SHE STARTED THAT SHE WAS FEELING SOME UNPLEASANT SENSATIONS OVER HER CHEST BUT THEY WERE WEANING DOWN. AT THE MOMENT, I FEEL THAT IT IS BETTER NOT TO USE TONIC STIMULATION. I WOULD LIKE TO AT SOME POINT TRY A NONTONIC STIMULATION TO SEE HOW SHE DOES. I WILL REFER HER TO NEUROLOGY FOR AN EVALUATION. IF IN THE FUTURE, THE PATIENT NEEDS ANY SORT OF IMAGING STUDIES, THE PATIENT SHOULD BE AWARE THAT IF SHE FEELS ANY SORT OF UNUSUAL REACTION SUCH HEATING IN HER BACK OR ANY SIMILAR EVENTS, SHE SHOULD STOP THE STUDY IMMMEDIATELY. I DISCUSSED WITH KYE THE POSSIBILITY OF TRYING SOME GABAPENTIN, LYRICA BUT SHE REPORTS SIDE EFFECTS WITH THESE MEDICATIONS SO SHE WOULD LIKE TO HOLD MEDICATIONS BY MOUTH AT THE MOMENT. THE PATIENT IS GOING TO COME BACK TO THE CLINIC IN 2 WEEKS AND AT THAT TIME, I SHOULD HAVE SOME MORE INFORMATION FROM [employer] AND I WOULD LIKE TO SEE HOW SHE DOES WITH THE LIDODERM PATCH. THE PATIENT UNDERSTANDS AND AGREES WITH THE PLAN. I, DEZ DHILLON, DOCUMENTED THE ABOVE INFORMATION ACTING A SCRIBE FOR DR. LONGO. I HAVE REVIEWED THE ABOVE DOCUMENT, WRITTEN BY DEZ DHILLON, FOOD INSPECTOR, AND I VERIFY THAT IT IS ACCURATE. PROCEDURE CODES FA211 ESTABILISHED PATIENT [facility] CHARGE [id number] OFFICE/OUTPATIENT VISIT EST DISPOSITION & COMMUNICATION FOLLOW UP FOLLOW UP WITH BOOK SHELVER IN 2 WEEKS (REASON: DCS COMPLICATIONS AFTER MRI) ELECTRONICALLY SIGNED BY TYLER LONGO MD, MD ON 03/06/2020 AT 10:45 AM EST DISCLAIMER : THIS IS A VISIT SUMMARY EXTRACTED FROM THE [employer] CHART. IT IS NOT A COPY OF THE [employer] PROGRESS NOTE. TIMOTHY
== END ==
LOC: M PAIN 15:15
PROVIDERS: ATTEND Anesthesiology
DX: M96.1 Postlaminectomy syndrome, not elsewhere classified (principal); M54.6 Pain in thoracic spine; F17.210 Nicotine dependence, cigarettes, uncomplicated; Z96.89 Presence of other specified functional implants; Z88.0 Allergy status to penicillin; Z88.1 Allergy status to other antibiotic agents; Z88.6 Allergy status to analgesic agent; Z88.8 Allergy status to other drugs, medicaments and biological substances; Z79.899 Other long term (current) drug therapy

== ENCOUNTER → 2020-03-13 | Outpatient (CLI) | payer MEDICARE, MEDICAID ==
--- NOTE | 2020-03-17 01:38 | ECWPNPC ---
PATIENT NAME: SAEED MCLEOD : 1975 GENDER: FEMALE VISIT DATE: 03/13/2020 DISCHARGE DATE: 03/13/20 1511 VISIT LOCKED DATE TIME: PHYSICIAN: TYLER LONGO MD PHYSICIAN PAGER NO: ACTIVE RESOURCE: TYLER LONGO MD REASON FOR APPOINTMENT 1. DCS COMPLICATION FOLLOW UP HISTORY OF PRESENT ILLNESS DEPRESSION SCREENING: PHQ-2 (2015 EDITION) LITTLE INTEREST OR PLEASURE IN DOING THINGS?NOT AT ALL FEELING DOWN, DEPRESSED, OR HOPELESS?NOT AT ALL TOTAL SCORE0 GENERAL: 45-YEAR-OLD FEMALE PATIENT WITH A HISTORY OF CHRONIC BACK PAIN. AFTER AN MRI WAS DONE IN JANUARY 2020, SHE STARTED TO DEVELOP SOME PAIN AND DISCOMFORT OVER THE CHEST AREA AND THE LOWER BACK. THE PATIENT HAS NOTICED THAT DURING THE LAST FEW DAYS SHE HAS BEEN FEELING BETTER. IT SEEMS TO BE THAT THE CONDITION IS IMPROVING. PRESENTLY, SHE DESCRIBES THE PAIN SHARP WITH A PAIN SCORE RANGING FROM 7-10/10 DEPENDING ON PHYSICAL ACTIVITY. THIS IS HER USUAL PAIN BUT SHE IS NO LONGER HAVING THE EVENTS SHE WAS HAVING AFTER THE MRI. THE PATIENT CONTINUES TO USE NAPROXEN AND THE HYDROCODONE. THE PATIENT HAS STOPPED USING THE LIDODERM PATCH BECAUSE SHE DOESN'T FEEL THAT SHE NEEDS IT AT THE MOMENT. DURING THE NIGHT, THE PATIENT IS HAVING SOME LEG DISCOMFORT SHE STILL HAS NOT TURN ON HER SPINAL CORD STIMULATOR. PATIENT DENIES UNEXPLAINABLE WEIGHT LOSS, FEVER, CHILLS, NEW CHANGES ON URINARY OR BOWEL CONTROL. FALL RISK SCREENING: SCREENING :NO FALLS REPORTED IN THE LAST YEAR PAIN SCREENING: PATIENT HAS A COMPLAINT OF ACUTE OR CHRONIC PAIN :YES LOCATION OF PAIN:MID BACK, UPPER BACK, LOW BACK INTENSITY OF PAIN (SCALE OF 1 TO 10):7 WHAT DOES YOUR PAIN FEEL LIKE:SHARP DURATION:CONSTANT PAIN IS INCREASED BY:ACTIVITIES, PROLONGED STANDING PAIN IS DECREASED BY:USE OF PAIN MEDICATIONS NURSING NOTE: -. PAIN CENTER INTAKE QUESTIONS: DO YOU HAVE A HISTORY OF MRSA? :NO DO YOU TAKE A BLOOD THINNERS? :NO DO YOU HAVE ANY BLEEDING DISORDERS? :NO ANY NEW NUMBNESS OR WEAKNESS IN YOUR LEGS OR ARMS? :NO ANY PACEMAKER,DEFIBRILLATOR, OR DORSAL COLUMN STIMULATOR? :YES DORSAL COLUMN STIMULATOR DO YOU HAVE ANY RASHES OR OPEN SORES? :NO ARE YOU ALLERGIC TO IV DYE? :NO ARE YOU DIABETIC? :NO ANY NEW PROBLEMS WITH YOUR MEDICATIONS? :NO HAVE YOU RECEIVED A VACCINE IN THE PAST 30 DAYS? :NO DO YOU PLAN TO RECEIVE A VACCINE IN THE NEXT 21 DAYS? :NO DO YOU NEED ANY PRESCRIPTION? :NO DO YOU TAKE ANY IMMUNOSUPPRESSIVE MEDICATIONS? :NO IS THERE A CHANCE YOU COULD BE ? :NO ARE YOU BREAST FEEDING? :NO CURRENT MEDICATIONS TAKING PRILOSEC DIRECTED ORALLY IF NEEDED FOR HEARTBURN TAKING ENERGY FOCUS 1 GUMMIE ORALLY TAKES 1 GUMMIE VITAMIN B12 DAILY TAKING NAPROXEN 500 MG TABLET 1 TABLET NEEDED ORALLY EVERY 12 HRS TAKING DRAMAMINE 50 MG TABLET 1 TABLET NEEDED ORALLY EVERY 6 HRS TAKING HYDROCODONE-ACETAMINOPHEN 10-325 MG TABLET 1 TABLET NEEDED ORALLY Q8H PRN MDD2 #60 TAB SHOULD LAST 30 DAYS TAKING LIDODERM 5 % PATCH 1 PATCH REMOVE AFTER 12 HOURS EXTERNALLY ONCE A DAY NOT-TAKING TIZANIDINE HCL 2 MG TABLET 1 TABLET NEEDED ORALLY BEFORE BEDTIME MAY REPEAT IN 4 HRS MDD2 NOT-TAKING ROPINIROLE HCL 0.25 MG TABLET 1 TO 2 ORALLY BEFORE BEDTIME, NOTES: HASN'T STARTED AND NOT SURE IF SHE IS GOING TO NOT-TAKING MORPHINE SULFATE 15 MG TABLET 1 ORALLY BID MDD2, NOTES: TAKES 1/2 TAB PRN NOT-TAKING CLONIDINE HCL 0.1 MG TABLET 1 TABLET ORALLY Q8H NOT-TAKING CLONIDINE HCL 0.1 MG TABLET 1 TAB ORALLY AM AND PM NOT-TAKING TYLENOL 325 MG TABLET 1 TABLET NEEDED ORALLY EVERY 4 HRS NEEDED MEDICATION LIST REVIEWED AND RECONCILED WITH THE PATIENT PAST MEDICAL HISTORY CHRONIC BACK PAIN EMG SHOWS MILD, CHRONIC L S1 AND POSSIBLY L5 RADICULOPATHY; MILD CHRONIC R L5 RADICULOPATHY (08/2015) DCS ALLERGIES ASPIRIN: SWELLING - ALLERGY GABAPENTIN: "FELT YUCKY" - SIDE EFFECTS LYRICA: FELT YUCKY" - SIDE EFFECTS PENICILLIN (FOR ALLERGIES USE ONLY): SEVERE YEAST INFECTION - SIDE EFFECTS AMOXICILLIN: SEVERE YEAST INFECTION - SIDE EFFECTS SURGICAL HISTORY LAMINECTOMY 1998 BACK SURGERY AGAIN 1998 DIAGNOSTIC LAPARASCOPY WITH ENDOMETRIOSIS ABLATION (NANDA) 2003 (?) DCS 06/26/17 PERMANENT DCS PLACEMENT 07/2017 PNEUMOTHORAX X 4 (MOST RECENT 1996) FAMILY HISTORY FATHER: , [place] MOTHER: ALIVE, SKIN CANCER, DIAGNOSED WITH HYPERTENSION, OTHER MALIGNANT NEOPLASM OF UNSPECIFIED SITE SIBLINGS: ALIVE SON(S): ALIVE 2 BROTHER(S) , 1 SISTER(S) - HEALTHY. 2 SON(S) - HEALTHY. SOCIAL HISTORY GENERAL: TOBACCO USE ARE YOU A:CURRENT SMOKER ARE YOU INTERESTED IN QUITTING?THINKING ABOUT QUITTING CUTTING DOWN CURRENTLY, 3 A DAY RIGHT NOW COUNSELED THE PATIENT ON SMOKING CESSATION, EDUCATION AOAABASV85/13/2020 HOW MANY CIGARETTES A DAY DO YOU SMOKE?5 OR LESS HOW SOON AFTER YOU WAKE UP DO YOU SMOKE YOUR FIRST CIGARETTE?AFTER 60 MIN HOW OFTEN DO YOU SMOKE CIGARETTES?EVERY DAY PATIENT COUNSELED ON THE DANGERS OF TOBACCO USE AND URGED TO QUIT:02/26/2020 SMOKING CESSATION INFORMATION GIVEN05/14/2018 LATEX QUESTIONNAIRE LATEX ALLERGY : HAVE YOU EVER DEVELOPED ANY TYPE OF REACTION AFTER HANDLING LATEX PRODUCTS SUCH RUBBER GLOVES, CONDOMS, DIAPHRAGMS, BALLOONS, SOCKS, OR UNDERWEAR?NO LATEX ALLERGY : HAVE YOU EVER DEVELOPED ANY TYPE OF REACTION DURING OR AFTER DENTAL APPOINTMENT, VAGINAL/RECTAL EXAMINATION, SURGICAL PROCEDURE, OR ANY OTHER EXPOSURE?YES - PLEASE INDICATE :VAGINAL EXAM DATE ASKED : 02/26/2020 LATEX RISK : HAVE YOU EVER HAD ANY DIFFICULTY BREATHING OR HIVES AFTER EATING OR HANDLING ANY FRUITS, OR VEGETABLES; SUCH KIWI, BANANAS, STONE FRUITS, OR CHESTNUTSNO LATEX RISK : DO YOU HAVE A PREVIOUS PERSONAL HISTORY OF MORE THAN NINE SURGERIES, SPINA BIFIDA, OR REPEATED CATHERIZATIONS? YES - PLEASE INDICATE : > 9 SURGERIES LATEX RISK : ARE YOU FREQUENTLY EXPOSED TO LATEX PRODUCTS IN YOUR OCCUPATION?NO ALCOHOL SCREENING DID YOU HAVE A DRINK CONTAINING ALCOHOL IN THE PAST YEAR?NO POINTS0 INTERPRETATIONNEGATIVE RECREATIONAL DRUG USE DRUG USE?NO DENIES 09/10/19 CAFFEINE CAFFEINE USE?YES SEXUAL HX HAD SEX IN THE LAST 12 MONTHS (VAGINAL, ORAL, OR ANAL)?YES HIV / HEP-C SCREENING HIV TEST OFFERED TO PATIENT:YES DATE OFFERED:12/20/2016 TEST ACCEPTED:YES ROMAN CATHOLIC [id number] NONE NO JEW BELIEFS THAT WOULD IMPACT HEALTH CARE. LANGUAGE LANGUAGES SPOKEN:SYRIAC EDUCATION LEVEL OF EDUCATION:HIGH SCHOOL LEARNING BARRIERS / SPECIAL NEEDS CHANGE FROM LAST VISIT?NO BARRIERS TO LEARNING?NO HEARING IMPAIRED?NO VISION IMPAIRED?NO COGNITIVELY IMPAIRED?NO READINESS TO LEARN?YES LEARNING PREFERENCES?NO LEARNING CAPABILITIES PRESENT?YES EMOTIONAL BARRIERS?NO SPECIAL DEVICES?NO SCALE INSTALLER NEEDED?NO DOMESTIC VIOLENCE DO YOU FEEL SAFE IN YOUR ENVIRONMENT?YES OCCUPATION: UNEMPLOYED. DIET: REGULAR. EXERCISE: NO REGULAR EXERCISE. MARITAL STATUS: SINGLE. OTHERS AT HOME: CHILDREN. PAIN CLINIC PFS, CLERGY, PUBLIC HEALTH REFERRALS PFS REFERRAL NEEDED?NO CLERGY REFERRAL NEEDED?NO PUBLIC HEALTH REFERRAL NEEDED?NO WAS THE PROVIDER NOTIFIED OF ANY PERTINENT INFO? N/A HAS THE PATIENT BEEN EDUCATED REGARDING HIS/HER PLAN OF CARE?YES HAS THE PATIENT BEEN EDUCATED REGARDING PAIN, THE RISK FOR PAIN, THE IMPORTANCE OF EFFECTIVE PAIN MANAGEMENT, AND THE PAIN ASSESSMENT PROCESS?YES ADVANCE DIRECTIVE ADVANCE DIRECTIVE DISCUSSED WITH PATIENT:YES PT DOES NOT HAVE ANY ADVANCED DIRECTIVES, AND SHE DECLINES INFORMATION ON HCP AT THIS TIME. GAVE QUIT SMOKING INFO 11/17/17REVIEWED WITH PT, 01/11/18 0956 LA05/28/18 REVIEWED WITH PT. ADREVIEWED WITH PATIENT 09/18/18 1306 JSPRE-SCREENING COMPLETED 05/02/2019 1600 JSREVIEWED WITH PATIENT 05/07/19 1149 BVREVIEWED WITH PATIENT 05/27/2019 1328 JSPRE PROCEDURE PHONE CALL COMPLETED 06/14/2019 1122 NLJ. HOSPITALIZATION/MAJOR DIAGNOSTIC PROCEDURE SURGERIES PNEUMOTHORAX MRI- WENT TO ER HAD A ISSUE WITH HER DORSAL COLUM STIMULATOR [employer] HEATED UP AND BURNED HER MUSCLES FROM THE INSIDE SHE WAS SENT TO THE ER AFTERWORDS, 1ST MRI WITH THE DORSAL COLUM STIMULATOR 02/13/2020 REVIEW OF SYSTEMS CONSTITUTIONAL: ANY RECENT FEVER NO . CHILLS NO . WEIGHT CHANGE OF UNKNOWN REASONS NO . GASTROENTEROLOGY: NEW UNEXPLAINABLE CHANGES IN BOWEL CONTROL NO . CONSTIPATION NO . GENITOURINARY: ANY NEW CHANGE IN BLADDER CONTROL? NO . NEUROLOGY: NEW ONSET DIZZINESS OR NEUROLOGICAL CHANGES NOT MENTIONED NO . NEW NUMBNESS OR PAIN PATTERNS NOT MENTIONED AND PERTINENT TO TODAY'S VISIT NO . CARDIOLOGY: NEW CHEST PRESSURE NO . NEW CHEST PAIN NO . RESPIRATORY: UNEXPLAINABLE COUGH NO . NEW SHORTNESS OF BREATH NO . VITAL SIGNS WT 119.8 LBS, HT 64 IN, BMI 20.56 INDEX, BP 128/68 MM HG, HR 68 /MIN, RR 18 /MIN, TEMP 98.0 F, OXYGEN SAT % 100%, SAFE IN ENV? (Y/N) YES, NA INITIALS AW 1400REVIEWED 03/13/20 1419 Yarelis GOMEZ RN. EXAMINATION GENERAL EXAMINATION: THE PATIENT IS ALERT, ORIENTED TIMES THREE AND COOPERATIVE. HEART SHOWS REGULAR RHYTHM, NO MURMURS AND NO GALLOPS. LUNGS ARE CLEAR TO AUSCULTATION. THERE IS TENDERNESS IN THE LOWER BACK AND IN THE PARASPINAL MUSCLE GROUP. ASSESSMENTS LUMBAR POST-LAMINECTOMY SYNDROME - M96.1 (PRIMARY), STATUS POST DCS TRIAL TREATMENT LUMBAR POST-LAMINECTOMY SYNDROME CLINICAL NOTES: I DISCUSSED THE ALTERNATIVES MS. MCLEOD. I SUGGESTED TO THE PATIENT NOT TO USE HER SPINAL CORD STIMULATOR FOR THE NEXT MONTH AND THEN START SLOW, AND START WITH 10 MINUTES OF THE NONTONIC SETTING. THEN THE NEXT DAY USE IT A LITTLE MORE AND CONTINUE INCREASING IT EVERY DAY SLOWLY. THE PATIENT CAN START USING IT SOONER IF SHE FEELS COMFORTABLE. ANY SIDE EFFECTS SHE WILL STOP THE SCS. THE PATIENT WILL FOLLOW UP WITH THE NURSE PRACTITIONER. THE PATIENT REPORTS UNDERSTANDING AND AGREES WITH THE PLAN. I, DEZ DHILLON, DOCUMENTED THE ABOVE INFORMATION ACTING A SCRIBE FOR DR. LONGO. I HAVE REVIEWED THE ABOVE DOCUMENT, WRITTEN BY DEZ DHILLON, SALES SUPPORT CONSULTANT, AND I VERIFY THAT IT IS ACCURATE. . PROCEDURE CODES FA211 ESTABILISHED PATIENT [facility] CHARGE [id number] OFFICE/OUTPATIENT VISIT EST DISPOSITION & COMMUNICATION FOLLOW UP FOLLOW UP WITH BOSS MINER (REASON: MED MANAGEMENT ) ELECTRONICALLY SIGNED BY TYLER LONGO MD, MD ON 03/16/2020 AT 02:55 PM EST DISCLAIMER : THIS IS A VISIT SUMMARY EXTRACTED FROM THE [employer] CHART. IT IS NOT A COPY OF THE [employer] PROGRESS NOTE. TIMOTHY
== END ==
LOC: M PAIN 13:45
PROVIDERS: ATTEND Anesthesiology
DX: M96.1 Postlaminectomy syndrome, not elsewhere classified (principal); F17.210 Nicotine dependence, cigarettes, uncomplicated; Z96.89 Presence of other specified functional implants; Z88.0 Allergy status to penicillin; Z88.1 Allergy status to other antibiotic agents; Z88.6 Allergy status to analgesic agent; Z88.8 Allergy status to other drugs, medicaments and biological substances; Z79.899 Other long term (current) drug therapy

== ENCOUNTER → 2020-03-31 | Outpatient (CLI) | payer MEDICARE, MEDICAID ==
--- NOTE | 2020-04-02 01:14 | ECWPNPC ---
PATIENT NAME: SAEED MCLEOD : 1975 GENDER: FEMALE VISIT DATE: 03/31/2020 DISCHARGE DATE: 03/31/20 1504 VISIT LOCKED DATE TIME: PHYSICIAN: SAWYER CASE PHYSICIAN PAGER NO: ACTIVE RESOURCE: ASWYER CASE REASON FOR APPOINTMENT 1. MED MANAGEMENT HISTORY OF PRESENT ILLNESS GENERAL: BEING SEEN TODAY FOR FOLLOW-UP ON DORSAL COLUMN STIMULATOR ISSUES. HAD MRI-OF THORACIC SPINE MID JANUARY AND HAS BEEN HAVING DIFFICULTIES WITH PAIN AND PARESTHESIAS IN HER THORACIC AND BILATERAL ARM REGION SINCE MRI. WAS LAST SEEN BY DR. LONGO A FEW WEEKS AGO. HE ADVISED HER TO TRY DORSAL COLUMN STIMULATOR FOR A SHORT TIME ON A NON-TONIC SETTING. STATES SHE TURNED IT ON THIS WAY 4 DAYS AGO AND CONTINUES TO HAVE SIGNIFICANT BURNING/ELECTRICAL PAIN INTERMITTENTLY NEAR BATTERY SITE LEFT LOW BACK AND BILATERAL ARMS. SHE IS VERY UNCOMFORTABLE TODAY. STATES THAT SHE HASN'T BEEN ABLE TO USE DORSAL COLUMN STIMULATOR SO LOW BACK PAIN AND LEG PAIN HAS BEEN CONSTANT AND SEVERE. SHE IS NOT ABLE TO TOLERATE GABAPENTIN, LYRICA OR AMITRIPTYLINE. GETTING SOME RELIEF FOR LOW BACK AND LEG PAIN WITH HYDROCODONE 10/325. WAS UNABLE TO GET LIDODERM PATCH THROUGH INSURANCE. DR. LONGO CAME IN TO SEE PATIENT AND DISCUSS TREATMENT PLAN. PATIENT SAW RADHA JOHNSON YESTERDAY AND HE DID NOT HAVE ANY SUGGESTIONS BUT TOLD HER THAT NECK AND LOW BACK AND DORSAL COLUMN LEADS LOOKED GOOD. FALL RISK SCREENING: SCREENING :NO FALLS REPORTED IN THE LAST YEAR PAIN SCREENING: PATIENT HAS A COMPLAINT OF ACUTE OR CHRONIC PAIN :YES LOCATION OF PAIN:LOW BACK, LEG(S) INTENSITY OF PAIN (SCALE OF 1 TO 10):8 WHAT DOES YOUR PAIN FEEL LIKE:SHARP DURATION:CONTINOUS, CONSTANT PAIN IS INCREASED BY:ACTIVITIES PAIN IS DECREASED BY:OTHERS DCS TREATMENT/MEDICATIONS USED TO MANAGE PAIN:OPIOIDS LEVEL OF RELIEF FROM PAIN TREATMENTS IN THE PAST:100% DCS PAIN HAS INTERFERED WITH THE FOLLOWING:BATHING/DRESSING, WALKING ABILITY, HOUSEWORK, SLEEP, TRANSPORTATION, TOILETING NURSING NOTE: -. PAIN CENTER INTAKE QUESTIONS: DO YOU HAVE A HISTORY OF MRSA? :NO DO YOU TAKE A BLOOD THINNERS? :NO DO YOU HAVE ANY BLEEDING DISORDERS? :NO ANY NEW NUMBNESS OR WEAKNESS IN YOUR LEGS OR ARMS? :YES ALL LIMBS ANY PACEMAKER,DEFIBRILLATOR, OR DORSAL COLUMN STIMULATOR? :YES DCS DO YOU HAVE ANY RASHES OR OPEN SORES? :NO ARE YOU ALLERGIC TO IV DYE? :NO ARE YOU DIABETIC? :NO ANY NEW PROBLEMS WITH YOUR MEDICATIONS? :NO HAVE YOU RECEIVED A VACCINE IN THE PAST 30 DAYS? :NO DO YOU PLAN TO RECEIVE A VACCINE IN THE NEXT 21 DAYS? :NO DO YOU NEED ANY PRESCRIPTION? :NO DO YOU TAKE ANY IMMUNOSUPPRESSIVE MEDICATIONS? :NO IS THERE A CHANCE YOU COULD BE ? :NO ARE YOU BREAST FEEDING? :NO CURRENT MEDICATIONS TAKING PRILOSEC DIRECTED ORALLY IF NEEDED FOR HEARTBURN TAKING ENERGY FOCUS 1 GUMMIE ORALLY TAKES 1 GUMMIE VITAMIN B12 DAILY TAKING NAPROXEN 500 MG TABLET 1 TABLET NEEDED ORALLY EVERY 12 HRS TAKING DRAMAMINE 50 MG TABLET 1 TABLET NEEDED ORALLY EVERY 6 HRS TAKING LIDODERM 5 % PATCH 1 PATCH REMOVE AFTER 12 HOURS EXTERNALLY ONCE A DAY TAKING HYDROCODONE-ACETAMINOPHEN 10-325 MG TABLET 1 TABLET NEEDED ORALLY Q8H PRN MDD2 #60 TAB SHOULD LAST 30 DAYS NOT-TAKING TIZANIDINE HCL 2 MG TABLET 1 TABLET NEEDED ORALLY BEFORE BEDTIME MAY REPEAT IN 4 HRS MDD2 NOT-TAKING ROPINIROLE HCL 0.25 MG TABLET 1 TO 2 ORALLY BEFORE BEDTIME, NOTES: HASN'T STARTED AND NOT SURE IF SHE IS GOING TO NOT-TAKING MORPHINE SULFATE 15 MG TABLET 1 ORALLY BID MDD2, NOTES: TAKES 1/2 TAB PRN NOT-TAKING CLONIDINE HCL 0.1 MG TABLET 1 TABLET ORALLY Q8H NOT-TAKING CLONIDINE HCL 0.1 MG TABLET 1 TAB ORALLY AM AND PM NOT-TAKING TYLENOL 325 MG TABLET 1 TABLET NEEDED ORALLY EVERY 4 HRS NEEDED MEDICATION LIST REVIEWED AND RECONCILED WITH THE PATIENT PAST MEDICAL HISTORY CHRONIC BACK PAIN EMG SHOWS MILD, CHRONIC L S1 AND POSSIBLY L5 RADICULOPATHY; MILD CHRONIC R L5 RADICULOPATHY (08/2015) DCS ALLERGIES ASPIRIN: SWELLING - ALLERGY GABAPENTIN: "FELT YUCKY" - SIDE EFFECTS LYRICA: FELT YUCKY" - SIDE EFFECTS PENICILLIN (FOR ALLERGIES USE ONLY): SEVERE YEAST INFECTION - SIDE EFFECTS AMOXICILLIN: SEVERE YEAST INFECTION - SIDE EFFECTS SURGICAL HISTORY LAMINECTOMY 1997 BACK SURGERY AGAIN 1998 DIAGNOSTIC LAPARASCOPY WITH ENDOMETRIOSIS ABLATION (NANDA) 2003 (?) DCS 06/26/17 PERMANENT DCS PLACEMENT 07/2017 PNEUMOTHORAX X 4 (MOST RECENT 1996) FAMILY HISTORY FATHER: , [place] MOTHER: ALIVE, SKIN CANCER, DIAGNOSED WITH OTHER MALIGNANT NEOPLASM OF UNSPECIFIED SITE, HYPERTENSION SIBLINGS: ALIVE SON(S): ALIVE 2 BROTHER(S) , 1 SISTER(S) - HEALTHY. 2 SON(S) - HEALTHY. SOCIAL HISTORY GENERAL: TOBACCO USE ARE YOU A:CURRENT SMOKER ARE YOU INTERESTED IN QUITTING?THINKING ABOUT QUITTING CUTTING DOWN CURRENTLY, 3 A DAY RIGHT NOW COUNSELED THE PATIENT ON SMOKING CESSATION, EDUCATION [id number]/01/2020 HOW MANY CIGARETTES A DAY DO YOU SMOKE?5 OR LESS HOW SOON AFTER YOU WAKE UP DO YOU SMOKE YOUR FIRST CIGARETTE?AFTER 60 MIN HOW OFTEN DO YOU SMOKE CIGARETTES?EVERY DAY PATIENT COUNSELED ON THE DANGERS OF TOBACCO USE AND URGED TO QUIT:02/26/2020 SMOKING CESSATION INFORMATION GIVEN05/14/2018 LATEX QUESTIONNAIRE LATEX ALLERGY : HAVE YOU EVER DEVELOPED ANY TYPE OF REACTION AFTER HANDLING LATEX PRODUCTS SUCH RUBBER GLOVES, CONDOMS, DIAPHRAGMS, BALLOONS, SOCKS, OR UNDERWEAR?NO LATEX ALLERGY : HAVE YOU EVER DEVELOPED ANY TYPE OF REACTION DURING OR AFTER DENTAL APPOINTMENT, VAGINAL/RECTAL EXAMINATION, SURGICAL PROCEDURE, OR ANY OTHER EXPOSURE?YES - PLEASE INDICATE :VAGINAL EXAM LATEX RISK : HAVE YOU EVER HAD ANY DIFFICULTY BREATHING OR HIVES AFTER EATING OR HANDLING ANY FRUITS, OR VEGETABLES; SUCH KIWI, BANANAS, STONE FRUITS, OR CHESTNUTSNO LATEX RISK : DO YOU HAVE A PREVIOUS PERSONAL HISTORY OF MORE THAN NINE SURGERIES, SPINA BIFIDA, OR REPEATED CATHERIZATIONS? YES - PLEASE INDICATE : > 9 SURGERIES LATEX RISK : ARE YOU FREQUENTLY EXPOSED TO LATEX PRODUCTS IN YOUR OCCUPATION?NO DATE ASKED : 02/26/2020 ALCOHOL SCREENING DID YOU HAVE A DRINK CONTAINING ALCOHOL IN THE PAST YEAR?NO POINTS0 INTERPRETATIONNEGATIVE RECREATIONAL DRUG USE DRUG USE?NO DENIES 09/10/19 CAFFEINE CAFFEINE USE?YES SEXUAL HX HAD SEX IN THE LAST 12 MONTHS (VAGINAL, ORAL, OR ANAL)?YES HIV / HEP-C SCREENING HIV TEST OFFERED TO PATIENT:YES DATE OFFERED:12/20/2016 TEST ACCEPTED:YES JEHOVAH'S WITNESS [id number] NONE NO LATTER-DAY BELIEFS THAT WOULD IMPACT HEALTH CARE. LANGUAGE LANGUAGES SPOKEN:FRISIAN EDUCATION LEVEL OF EDUCATION:HIGH SCHOOL LEARNING BARRIERS / SPECIAL NEEDS CHANGE FROM LAST VISIT?NO BARRIERS TO LEARNING?NO HEARING IMPAIRED?NO VISION IMPAIRED?NO COGNITIVELY IMPAIRED?NO READINESS TO LEARN?YES LEARNING PREFERENCES?NO LEARNING CAPABILITIES PRESENT?YES EMOTIONAL BARRIERS?NO SPECIAL DEVICES?NO TELEMETRY TECHNICIAN NEEDED?NO DOMESTIC VIOLENCE DO YOU FEEL SAFE IN YOUR ENVIRONMENT?YES OCCUPATION: UNEMPLOYED. DIET: REGULAR. EXERCISE: NO REGULAR EXERCISE. MARITAL STATUS: SINGLE. OTHERS AT HOME: CHILDREN. PAIN CLINIC PFS, CLERGY, PUBLIC HEALTH REFERRALS PFS REFERRAL NEEDED?NO CLERGY REFERRAL NEEDED?NO PUBLIC HEALTH REFERRAL NEEDED?NO WAS THE PROVIDER NOTIFIED OF ANY PERTINENT INFO? N/A HAS THE PATIENT BEEN EDUCATED REGARDING HIS/HER PLAN OF CARE?YES HAS THE PATIENT BEEN EDUCATED REGARDING PAIN, THE RISK FOR PAIN, THE IMPORTANCE OF EFFECTIVE PAIN MANAGEMENT, AND THE PAIN ASSESSMENT PROCESS?YES ADVANCE DIRECTIVE ADVANCE DIRECTIVE DISCUSSED WITH PATIENT:YES PT DOES NOT HAVE ANY ADVANCED DIRECTIVES, AND SHE DECLINES INFORMATION ON HCP AT THIS TIME. GAVE QUIT SMOKING INFO 11/17/17REVIEWED WITH PT, 01/11/18 0956 LA05/28/18 REVIEWED WITH PT. ADREVIEWED WITH PATIENT 09/18/18 1306 JSPRE-SCREENING COMPLETED 05/02/2019 1600 JSREVIEWED WITH PATIENT 05/07/19 1149 BVREVIEWED WITH PATIENT 05/27/2019 1328 JSPRE PROCEDURE PHONE CALL COMPLETED 06/14/2019 1122 NLJ. HOSPITALIZATION/MAJOR DIAGNOSTIC PROCEDURE SURGERIES PNEUMOTHORAX MRI- WENT TO ER HAD A ISSUE WITH HER DORSAL COLUM STIMULATOR [employer] HEATED UP AND BURNED HER MUSCLES FROM THE INSIDE SHE WAS SENT TO THE ER AFTERWORDS, 1ST MRI WITH THE DORSAL COLUM STIMULATOR 02/13/2020 REVIEW OF SYSTEMS CONSTITUTIONAL: ANY RECENT FEVER NO . CHILLS NO . WEIGHT CHANGE OF UNKNOWN REASONS NO . GASTROENTEROLOGY: NEW UNEXPLAINABLE CHANGES IN BOWEL CONTROL NO . CONSTIPATION NO . GENITOURINARY: ANY NEW CHANGE IN BLADDER CONTROL? NO . NEUROLOGY: NEW ONSET DIZZINESS OR NEUROLOGICAL CHANGES NOT MENTIONED NO . NEW NUMBNESS OR PAIN PATTERNS NOT MENTIONED AND PERTINENT TO TODAY'S VISIT NO . CARDIOLOGY: NEW CHEST PRESSURE NO . NEW CHEST PAIN NO . RESPIRATORY: UNEXPLAINABLE COUGH NO . NEW SHORTNESS OF BREATH NO . VITAL SIGNS WT 120.6 LBS, HT 64 IN, BMI 20.70 INDEX, BP 131/87 MM HG, HR 77 /MIN, RR 18 /MIN, TEMP 98.7 F, OXYGEN SAT % 99%, SAFE IN ENV? (Y/N) Y, NA INITIALS AW 1352, REVIEWED BY: EM. EXAMINATION GENERAL EXAMINATION: GENERALAWAKE,ALERT ,PLEASANT . PSYCHAFFECT NORMAL . LUNGS:LUNG KAMARA ARE CLEAR TO AUSCULTATION BILATERALLY. GOOD MOVEMENT OF AIR . HEART:S1, S2 IN A REGULAR RATE AND RHYTHM. NO SIGNIFICANT MURMURS, RUBS OR GALLOPS NOTED . ASSESSMENTS LUMBAR POST-LAMINECTOMY SYNDROME - M96.1 (PRIMARY), STATUS POST DCS TRIAL TREATMENT LUMBAR POST-LAMINECTOMY SYNDROME INCREASE HYDROCODONE-ACETAMINOPHEN TABLET, 10-325 MG, 1 TABLET NEEDED, ORALLY, Q8H PRN MDD3, 30 DAYS, 90, REFILLS 0 START LIDOCAINE GEL, 4 %, DIRECTED, EXTERNALLY, SMALL AMOUNT TO AFFECTED AREA EVERY 6 HOURS NEEDED, 30 DAYS, 1, REFILLS 2 NOTES: ADVISED PATIENT PER RECOMMENDATIONS OF DR. LONGO TO NOT USE DORSAL COLUMN STIMULATOR. APPLY TOPICAL LIDOCAINE CREAM TO PROBLEM AREA ROTATING SITES EVERY 6 HOURS NEEDED FOR BURNING PAIN. PER DR. LONGO'S RECOMMENDATIONS WE WILL INCREASE HYDROCODONE 10/325 TO MAXIMUM OF 3 A DAY NEEDED FOR SEVERE PAIN EPISODES. SHE WILL BE USING UP WHAT SHE HAS OF HYDROCODONE AT HOME AND MAY BE REQUESTING EARLY FILL OF HYDROCODONE DUE TO THIS INCREASE TODAY. DR. LONGO WILL BE TALKING TO SAM ADAMS FROM [employer] REGARDING DORSAL COLUMN STIMULATOR ISSUES. DR. LONGO WILL SEE HER IN FOLLOW-UP NEXT WEEK. DISPOSITION & COMMUNICATION FOLLOW UP NEXT WEEK WITH DR. LONGO PER DR. LONGO (REASON: DORSAL COLUMN STIMULATOR ISSUES) ELECTRONICALLY SIGNED BY KARL BARRETT ON 04/01/2020 AT 01:40 PM EST DISCLAIMER : THIS IS A VISIT SUMMARY EXTRACTED FROM THE [employer] CHART. IT IS NOT A COPY OF THE [employer] PROGRESS NOTE. TIMOTHY
== END ==
LOC: M PAIN 13:45
PROVIDERS: ATTEND Nurse Practitioner Family
DX: M96.1 Postlaminectomy syndrome, not elsewhere classified (principal); F17.210 Nicotine dependence, cigarettes, uncomplicated; Z96.89 Presence of other specified functional implants; Z88.0 Allergy status to penicillin; Z88.1 Allergy status to other antibiotic agents; Z88.6 Allergy status to analgesic agent; Z88.8 Allergy status to other drugs, medicaments and biological substances; Z79.899 Other long term (current) drug therapy

== ENCOUNTER → 2020-04-10 | Outpatient (CLI) | payer MEDICARE, MEDICAID ==
--- NOTE | 2020-04-11 00:51 | ECWPNPC ---
PATIENT NAME: SAEED MCLEOD : 1975 GENDER: FEMALE VISIT DATE: 04/10/2020 DISCHARGE DATE: 04/10/20 1547 VISIT LOCKED DATE TIME: PHYSICIAN: TYLER LONGO MD PHYSICIAN PAGER NO: ACTIVE RESOURCE: TYLER LONGO MD REASON FOR APPOINTMENT 1. DORSAL COLUMN STIMULATOR ISSUES HISTORY OF PRESENT ILLNESS GENERAL: 45-YEAR-OLD FEMALE PATIENT WITH A HISTORY OF CHRONIC BACK AND LEG PAIN. THE PATIENT HAS BEEN USING A SPINAL COLUMN STIMULATOR TO CONTROL HER PAIN UNTIL SHE HAD A MRI WHEN SHE EXPERIENCED A BURNING SENSATION. SINCE THE MRI, SHE FEELS A THORACIC PAIN WHEN SHE TURNS IT ON. PRESENTLY SHE DOES NOT HAVE THE THORACIC PAIN BUT SHE IS CONCERN OF USING THE DCS AND HAVING THE THORACIC PAIN AGAIN. SHE HAS BEEN TOO AFRAID TO TURN ON HER STIMULATOR WHICH HAS BEEN THE MAIN SOURCE OF PAIN CONTROL FOR HER BACK AND LEG PAIN. THE PATIENT DESCRIBES THE PAIN STABBING AND SHOOTING WITH A PAIN SCORE RANGING FROM 8-10/10 AT HER LOW BACK AND LEGS DEPENDING ON PHYSICAL ACTIVITY. SHE CANNOT SLEEP. SHE CANNOT PERFORM ACTIVITIES. THE MEDIATION THAT WE USED IN THE PAST FOR HER PAIN WAS MORPHINE WHICH WORKED FOR HER. PATIENT DENIES UNEXPLAINABLE WEIGHT LOSS, FEVER, CHILLS, NEW CHANGES ON URINARY OR BOWEL CONTROL. PAIN CENTER INTAKE QUESTIONS: DO YOU HAVE A HISTORY OF MRSA? :NO DO YOU TAKE A BLOOD THINNERS? :NO DO YOU HAVE ANY BLEEDING DISORDERS? :NO ANY NEW NUMBNESS OR WEAKNESS IN YOUR LEGS OR ARMS? :NO ANY PACEMAKER,DEFIBRILLATOR, OR DORSAL COLUMN STIMULATOR? :YES DCS DO YOU HAVE ANY RASHES OR OPEN SORES? :NO ARE YOU ALLERGIC TO IV DYE? :NO ARE YOU DIABETIC? :NO ANY NEW PROBLEMS WITH YOUR MEDICATIONS? :NO HAVE YOU RECEIVED A VACCINE IN THE PAST 30 DAYS? :NO DO YOU PLAN TO RECEIVE A VACCINE IN THE NEXT 21 DAYS? :NO DO YOU NEED ANY PRESCRIPTION? :NO DO YOU TAKE ANY IMMUNOSUPPRESSIVE MEDICATIONS? :NO IS THERE A CHANCE YOU COULD BE ? :NO ARE YOU BREAST FEEDING? :NO FALL RISK SCREENING: SCREENING :NO FALLS REPORTED IN THE LAST YEAR PAIN SCREENING: PATIENT HAS A COMPLAINT OF ACUTE OR CHRONIC PAIN :YES LOCATION OF PAIN:LOW BACK, LEFT HIP, RIGHT HIP, LEG(S) BUTTOCKS INTENSITY OF PAIN (SCALE OF 1 TO 10):9 WHAT DOES YOUR PAIN FEEL LIKE:STABBING, SHOOTING DURATION:CONTINOUS, CONSTANT, STEADY, ALL DAY, AWAKENS FROM SLEEP PAIN IS INCREASED BY:ACTIVITIES, PROLONGED STANDING, OTHERS WALKING, SLEEPING, LAYING DOWN PAIN IS DECREASED BY:USE OF PAIN MEDICATIONS NURSING NOTE: -. CURRENT MEDICATIONS TAKING PRILOSEC DIRECTED ORALLY IF NEEDED FOR HEARTBURN TAKING ENERGY FOCUS 1 GUMMIE ORALLY TAKES 1 GUMMIE VITAMIN B12 DAILY TAKING NAPROXEN 500 MG TABLET 1 TABLET NEEDED ORALLY EVERY 12 HRS TAKING DRAMAMINE 50 MG TABLET 1 TABLET NEEDED ORALLY EVERY 6 HRS TAKING HYDROCODONE-ACETAMINOPHEN 10-325 MG TABLET 1 TABLET NEEDED ORALLY Q8H PRN MDD3 NOT-TAKING LIDODERM 5 % PATCH 1 PATCH REMOVE AFTER 12 HOURS EXTERNALLY ONCE A DAY NOT-TAKING LIDOCAINE 4 % GEL DIRECTED EXTERNALLY SMALL AMOUNT TO AFFECTED AREA EVERY 6 HOURS NEEDED NOT-TAKING TIZANIDINE HCL 2 MG TABLET 1 TABLET NEEDED ORALLY BEFORE BEDTIME MAY REPEAT IN 4 HRS MDD2 NOT-TAKING ROPINIROLE HCL 0.25 MG TABLET 1 TO 2 ORALLY BEFORE BEDTIME, NOTES: HASN'T STARTED AND NOT SURE IF SHE IS GOING TO NOT-TAKING MORPHINE SULFATE 15 MG TABLET 1 ORALLY BID MDD2, NOTES: TAKES 1/2 TAB PRN NOT-TAKING CLONIDINE HCL 0.1 MG TABLET 1 TABLET ORALLY Q8H NOT-TAKING CLONIDINE HCL 0.1 MG TABLET 1 TAB ORALLY AM AND PM NOT-TAKING TYLENOL 325 MG TABLET 1 TABLET NEEDED ORALLY EVERY 4 HRS NEEDED MEDICATION LIST REVIEWED AND RECONCILED WITH THE PATIENT PAST MEDICAL HISTORY CHRONIC BACK PAIN EMG SHOWS MILD, CHRONIC L S1 AND POSSIBLY L5 RADICULOPATHY; MILD CHRONIC R L5 RADICULOPATHY (08/2015) DCS ALLERGIES ASPIRIN: SWELLING - ALLERGY GABAPENTIN: "FELT YUCKY" - SIDE EFFECTS LYRICA: FELT YUCKY" - SIDE EFFECTS PENICILLIN (FOR ALLERGIES USE ONLY): SEVERE YEAST INFECTION - SIDE EFFECTS AMOXICILLIN: SEVERE YEAST INFECTION - SIDE EFFECTS SURGICAL HISTORY LAMINECTOMY 1997 BACK SURGERY AGAIN 1998 DIAGNOSTIC LAPARASCOPY WITH ENDOMETRIOSIS ABLATION (NANDA) 2003 (?) DCS 06/26/17 PERMANENT DCS PLACEMENT 07/2017 PNEUMOTHORAX X 4 (MOST RECENT 1996) FAMILY HISTORY FATHER: , [place] MOTHER: ALIVE, SKIN CANCER, DIAGNOSED WITH HYPERTENSION, OTHER MALIGNANT NEOPLASM OF UNSPECIFIED SITE SIBLINGS: ALIVE SON(S): ALIVE 2 BROTHER(S) , 1 SISTER(S) - HEALTHY. 2 SON(S) - HEALTHY. SOCIAL HISTORY GENERAL: TOBACCO USE ARE YOU A:CURRENT SMOKER ARE YOU INTERESTED IN QUITTING?THINKING ABOUT QUITTING CUTTING DOWN CURRENTLY, 3 A DAY RIGHT NOW COUNSELED THE PATIENT ON SMOKING CESSATION, EDUCATION [id number]/11/2020 HOW MANY CIGARETTES A DAY DO YOU SMOKE?5 OR LESS HOW SOON AFTER YOU WAKE UP DO YOU SMOKE YOUR FIRST CIGARETTE?AFTER 60 MIN HOW OFTEN DO YOU SMOKE CIGARETTES?EVERY DAY PATIENT COUNSELED ON THE DANGERS OF TOBACCO USE AND URGED TO QUIT:04/10/2020 SMOKING CESSATION INFORMATION GIVEN05/14/2018 LATEX QUESTIONNAIRE LATEX ALLERGY : HAVE YOU EVER DEVELOPED ANY TYPE OF REACTION AFTER HANDLING LATEX PRODUCTS SUCH RUBBER GLOVES, CONDOMS, DIAPHRAGMS, BALLOONS, SOCKS, OR UNDERWEAR?NO LATEX ALLERGY : HAVE YOU EVER DEVELOPED ANY TYPE OF REACTION DURING OR AFTER DENTAL APPOINTMENT, VAGINAL/RECTAL EXAMINATION, SURGICAL PROCEDURE, OR ANY OTHER EXPOSURE?YES - PLEASE INDICATE :VAGINAL EXAM LATEX RISK : HAVE YOU EVER HAD ANY DIFFICULTY BREATHING OR HIVES AFTER EATING OR HANDLING ANY FRUITS, OR VEGETABLES; SUCH KIWI, BANANAS, STONE FRUITS, OR CHESTNUTSNO LATEX RISK : DO YOU HAVE A PREVIOUS PERSONAL HISTORY OF MORE THAN NINE SURGERIES, SPINA BIFIDA, OR REPEATED CATHERIZATIONS? YES - PLEASE INDICATE : > 9 SURGERIES LATEX RISK : ARE YOU FREQUENTLY EXPOSED TO LATEX PRODUCTS IN YOUR OCCUPATION?NO DATE ASKED : 02/26/2020 ALCOHOL SCREENING DID YOU HAVE A DRINK CONTAINING ALCOHOL IN THE PAST YEAR?NO POINTS0 INTERPRETATIONNEGATIVE RECREATIONAL DRUG USE DRUG USE?NO DENIES 09/10/19 CAFFEINE CAFFEINE USE?YES SEXUAL HX HAD SEX IN THE LAST 12 MONTHS (VAGINAL, ORAL, OR ANAL)?YES HIV / HEP-C SCREENING HIV TEST OFFERED TO PATIENT:YES DATE OFFERED:12/20/2016 TEST ACCEPTED:YES RESTORATIONIST [id number] NONE NO EPISCOPALIAN BELIEFS THAT WOULD IMPACT HEALTH CARE. LANGUAGE LANGUAGES SPOKEN:BULGARIAN EDUCATION LEVEL OF EDUCATION:HIGH SCHOOL LEARNING BARRIERS / SPECIAL NEEDS CHANGE FROM LAST VISIT?NO BARRIERS TO LEARNING?NO HEARING IMPAIRED?NO VISION IMPAIRED?NO COGNITIVELY IMPAIRED?NO READINESS TO LEARN?YES LEARNING PREFERENCES?NO LEARNING CAPABILITIES PRESENT?YES EMOTIONAL BARRIERS?NO SPECIAL DEVICES?NO PUMP SERVICER HELPER NEEDED?NO DOMESTIC VIOLENCE DO YOU FEEL SAFE IN YOUR ENVIRONMENT?YES OCCUPATION: UNEMPLOYED. DIET: REGULAR. EXERCISE: NO REGULAR EXERCISE. MARITAL STATUS: SINGLE. OTHERS AT HOME: CHILDREN. PAIN CLINIC PFS, CLERGY, PUBLIC HEALTH REFERRALS PFS REFERRAL NEEDED?NO CLERGY REFERRAL NEEDED?NO PUBLIC HEALTH REFERRAL NEEDED?NO WAS THE PROVIDER NOTIFIED OF ANY PERTINENT INFO? N/A HAS THE PATIENT BEEN EDUCATED REGARDING HIS/HER PLAN OF CARE?YES HAS THE PATIENT BEEN EDUCATED REGARDING PAIN, THE RISK FOR PAIN, THE IMPORTANCE OF EFFECTIVE PAIN MANAGEMENT, AND THE PAIN ASSESSMENT PROCESS?YES ADVANCE DIRECTIVE ADVANCE DIRECTIVE DISCUSSED WITH PATIENT:YES PT DOES NOT HAVE ANY ADVANCED DIRECTIVES, AND SHE DECLINES INFORMATION ON HCP AT THIS TIME. GAVE QUIT SMOKING INFO 11/17/17. HOSPITALIZATION/MAJOR DIAGNOSTIC PROCEDURE SURGERIES PNEUMOTHORAX MRI- WENT TO ER HAD A ISSUE WITH HER DORSAL COLUM STIMULATOR [employer] HEATED UP AND BURNED HER MUSCLES FROM THE INSIDE SHE WAS SENT TO THE ER AFTERWORDS, 1ST MRI WITH THE DORSAL COLUM STIMULATOR 02/13/2020 REVIEW OF SYSTEMS CONSTITUTIONAL: ANY RECENT FEVER NO . CHILLS NO . WEIGHT CHANGE OF UNKNOWN REASONS NO . GASTROENTEROLOGY: NEW UNEXPLAINABLE CHANGES IN BOWEL CONTROL NO . CONSTIPATION NO . GENITOURINARY: ANY NEW CHANGE IN BLADDER CONTROL? NO . NEUROLOGY: NEW ONSET DIZZINESS OR NEUROLOGICAL CHANGES NOT MENTIONED NO . NEW NUMBNESS OR PAIN PATTERNS NOT MENTIONED AND PERTINENT TO TODAY'S VISIT NO . CARDIOLOGY: NEW CHEST PRESSURE NO . NEW CHEST PAIN NO . RESPIRATORY: UNEXPLAINABLE COUGH NO . NEW SHORTNESS OF BREATH NO . VITAL SIGNS WT 121.0 LBS, HT 64 IN, BMI 20.77 INDEX, BP 128/74 MM HG, HR 70 /MIN, RR 18 /MIN, TEMP 98.2 F, OXYGEN SAT % 100%, SAFE IN ENV? (Y/N) Y, NA INITIALS AW 1354, REVIEWED BY: JSJ. RADHA RN. EXAMINATION GENERAL EXAMINATION: THE PATIENT IS ALERT, ORIENTED TIMES THREE AND COOPERATIVE. LUNGS ARE CLEAR TO AUSCULTATION. HEART SHOWS REGULAR RHYTHM, NO MURMURS AND NO GALLOPS. THE PATIENT WALKS WITH ANTALGIC GAIT. THE PATIENT HAD TENDERNESS IN THE LOWER BACK IN THE PARASPINAL MUSCLE GROUP. SHE HAS DIFFICULTY SITTING. THE PATIENT HAS WEAKNESS IN BOTH LOWER EXTREMITIES. STRAIGHT LEG RAISE IS POSITIVE FOR RADICULOPATHY AT 45 DEGREES IN BOTH LEGS. 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 PATIENT VERBALIZED AN UNDERSTADNING. Ilan GARCIA RN. CLINICAL NOTES: I DISCUSSED ALTERNATIVES WITH MS. MCLEOD. MORPHINE HAS HELPED THE PATIENT IN THE PAST. I WILL HAVE HER TRY THE MORPHINE AGAIN. MY ADVICE IS TO CONSIDER USING NONTONIC STIMULATION BUT I DO NOT WANT HER TO DO THAT YET UNTIL I HAVE A CONVERSATION WITH SOMEONE AT [employer]. I REVIEWED HER ISTOP, REFERENCE NUMBER [id number]. I WANT HER TO FOLLOW UP WITH THE NURSE PRACTITIONER NEXT WEEK. DEPENDING ON HOW SHE IS DOING WITH THE MORPHINE, THEY MAY WANT TO INCREASE IT. THE PATIENT REPORTS UNDERSTANDING AND AGREES WITH THE PLAN. I, DEZ DHILLON, DOCUMENTED THE ABOVE INFORMATION ACTING A SCRIBE FOR DR. LONGO. I HAVE REVIEWED THE ABOVE DOCUMENT, WRITTEN BY DEZ DHILLON, BODY TECHNICIAN, AND I VERIFY THAT IT IS ACCURATE. PROCEDURE CODES FA211 ESTABILISHED PATIENT [facility] CHARGE [id number] OFFICE/OUTPATIENT VISIT EST DISPOSITION & COMMUNICATION FOLLOW UP FOLLOW UP WITH SAWYER NEXT MONDAY (REASON: DORSAL COLUMN STIMULATOR ISSUES-MED MANAGEMENT) ELECTRONICALLY SIGNED BY TYLER LONGO MD, ON 04/10/2020 AT 05:05 PM EST DISCLAIMER : THIS IS A VISIT SUMMARY EXTRACTED FROM THE [employer] CHART. IT IS NOT A COPY OF THE [employer] PROGRESS NOTE. MTDD
== END ==
LOC: M PAIN 13:45
PROVIDERS: ATTEND Anesthesiology
DX: M51.16 Intervertebral disc disorders with radiculopathy, lumbar region (principal); G89.29 Other chronic pain; F17.210 Nicotine dependence, cigarettes, uncomplicated; Z96.89 Presence of other specified functional implants; Z88.0 Allergy status to penicillin; Z88.1 Allergy status to other antibiotic agents; Z88.6 Allergy status to analgesic agent; Z88.8 Allergy status to other drugs, medicaments and biological substances; Z79.899 Other long term (current) drug therapy

== ENCOUNTER → 2020-04-15 | Outpatient (CLI) | payer MEDICARE, MEDICAID ==
--- NOTE | 2020-04-16 23:51 | ECWPNPC ---
PATIENT NAME: SAEED MCLEOD : 1975 GENDER: FEMALE VISIT DATE: 04/15/2020 DISCHARGE DATE: 04/15/20 1124 VISIT LOCKED DATE TIME: PHYSICIAN: SAWYER CASE PHYSICIAN PAGER NO: ACTIVE RESOURCE: SAWYER CASE REASON FOR APPOINTMENT 1. DORSAL COLUMN STIMULATOR ISSUES-MED MANAGEMENT HISTORY OF PRESENT ILLNESS GENERAL: HERE FOR FOLLOW-UP O/MEDICATION MANAGEMENT AND DORSAL COLUMN STIM ISSUES AFTER MRI IN JANUARY. HAS BEEN KEEPING DORSAL COLUMN STIMULATOR OFF. HAVING HER POSTLAMINECTOMY PAIN THAT WAS WELL COVERED WITH DORSAL COLUMN STIMULATOR REOCCUR. DR. LONGO PUT HER ON MORPHINE 15 MG A HALF TO 1 WHOLE TABLET 3 TIMES A DAY INSTEAD OF HYDROCODONE HYDROCODONE WAS INEFFECTIVE. REPORTING IMPROVED PAIN CONTROL WITH USE OF MORPHINE 15 MG TABLET. DENIES ADVERSE EFFECTS WITH MORPHINE. REPORTING NORMAL BOWEL FUNCTION. -. FALL RISK SCREENING: SCREENING :NO FALLS REPORTED IN THE LAST YEAR PAIN SCREENING: PATIENT HAS A COMPLAINT OF ACUTE OR CHRONIC PAIN :YES LOCATION OF PAIN:LOW BACK INTENSITY OF PAIN (SCALE OF 1 TO 10):6 WHAT DOES YOUR PAIN FEEL LIKE:CONTINOUS, SHARP, SHOOTING DURATION:CONTINOUS, CONSTANT, AWAKENS FROM SLEEP PAIN IS INCREASED BY:ACTIVITIES, PROLONGED STANDING EVERYTHING PAIN IS DECREASED BY: PAIN MEDICATION PAIN HAS INTERFERED WITH THE FOLLOWING: EVERYTHING NURSING NOTE: -. PAIN CENTER INTAKE QUESTIONS: DO YOU HAVE A HISTORY OF MRSA? :NO DO YOU TAKE A BLOOD THINNERS? :NO DO YOU HAVE ANY BLEEDING DISORDERS? :NO ANY NEW NUMBNESS OR WEAKNESS IN YOUR LEGS OR ARMS? :NO ANY PACEMAKER,DEFIBRILLATOR, OR DORSAL COLUMN STIMULATOR? :YES DCS DO YOU HAVE ANY RASHES OR OPEN SORES? :NO ARE YOU ALLERGIC TO IV DYE? :NO ARE YOU DIABETIC? :NO ANY NEW PROBLEMS WITH YOUR MEDICATIONS? :NO HAVE YOU RECEIVED A VACCINE IN THE PAST 30 DAYS? :NO DO YOU PLAN TO RECEIVE A VACCINE IN THE NEXT 21 DAYS? :NO DO YOU NEED ANY PRESCRIPTION? :YES MORPHINE DO YOU TAKE ANY IMMUNOSUPPRESSIVE MEDICATIONS? :NO IS THERE A CHANCE YOU COULD BE ? :NO ARE YOU BREAST FEEDING? :NO CURRENT MEDICATIONS TAKING PRILOSEC DIRECTED ORALLY IF NEEDED FOR HEARTBURN TAKING ENERGY FOCUS 1 GUMMIE ORALLY TAKES 1 GUMMIE VITAMIN B12 DAILY TAKING NAPROXEN 500 MG TABLET 1 TABLET NEEDED ORALLY EVERY 12 HRS TAKING DRAMAMINE 50 MG TABLET 1 TABLET NEEDED ORALLY EVERY 6 HRS TAKING MORPHINE SULFATE 15 MG TABLET 1 ORALLY FOR PAIN EVERY 8 HOURS NEEDED MDD3 UNKNOWN HYDROCODONE-ACETAMINOPHEN 10-325 MG TABLET 1 TABLET NEEDED ORALLY Q8H PRN MDD3 UNKNOWN LIDODERM 5 % PATCH 1 PATCH REMOVE AFTER 12 HOURS EXTERNALLY ONCE A DAY UNKNOWN LIDOCAINE 4 % GEL DIRECTED EXTERNALLY SMALL AMOUNT TO AFFECTED AREA EVERY 6 HOURS NEEDED UNKNOWN TIZANIDINE HCL 2 MG TABLET 1 TABLET NEEDED ORALLY BEFORE BEDTIME MAY REPEAT IN 4 HRS MDD2 UNKNOWN ROPINIROLE HCL 0.25 MG TABLET 1 TO 2 ORALLY BEFORE BEDTIME, NOTES: HASN'T STARTED AND NOT SURE IF SHE IS GOING TO UNKNOWN CLONIDINE HCL 0.1 MG TABLET 1 TABLET ORALLY Q8H UNKNOWN CLONIDINE HCL 0.1 MG TABLET 1 TAB ORALLY AM AND PM UNKNOWN TYLENOL 325 MG TABLET 1 TABLET NEEDED ORALLY EVERY 4 HRS NEEDED MEDICATION LIST REVIEWED AND RECONCILED WITH THE PATIENT PAST MEDICAL HISTORY CHRONIC BACK PAIN EMG SHOWS MILD, CHRONIC L S1 AND POSSIBLY L5 RADICULOPATHY; MILD CHRONIC R L5 RADICULOPATHY (08/2015) DCS ALLERGIES ASPIRIN: SWELLING - ALLERGY GABAPENTIN: "FELT YUCKY" - SIDE EFFECTS LYRICA: FELT YUCKY" - SIDE EFFECTS PENICILLIN (FOR ALLERGIES USE ONLY): SEVERE YEAST INFECTION - SIDE EFFECTS AMOXICILLIN: SEVERE YEAST INFECTION - SIDE EFFECTS SURGICAL HISTORY LAMINECTOMY 1997 BACK SURGERY AGAIN 1998 DIAGNOSTIC LAPARASCOPY WITH ENDOMETRIOSIS ABLATION (NANDA) 2003 (?) DCS 06/26/17 PERMANENT DCS PLACEMENT 07/2017 PNEUMOTHORAX X 4 (MOST RECENT 1996) DORSAL COLUM STIMULATOR 2017 FAMILY HISTORY FATHER: , [place] MOTHER: ALIVE, SKIN CANCER, DIAGNOSED WITH HYPERTENSION, OTHER MALIGNANT NEOPLASM OF UNSPECIFIED SITE SIBLINGS: ALIVE SON(S): ALIVE 2 BROTHER(S) , 1 SISTER(S) - HEALTHY. 2 SON(S) - HEALTHY. SOCIAL HISTORY GENERAL: TOBACCO USE ARE YOU A:CURRENT SMOKER ARE YOU INTERESTED IN QUITTING?THINKING ABOUT QUITTING CUTTING DOWN CURRENTLY, 3 A DAY RIGHT NOW COUNSELED THE PATIENT ON SMOKING CESSATION, EDUCATION BIGIPRJO04/11/2020 HOW MANY CIGARETTES A DAY DO YOU SMOKE?5 OR LESS HOW SOON AFTER YOU WAKE UP DO YOU SMOKE YOUR FIRST CIGARETTE?AFTER 60 MIN HOW OFTEN DO YOU SMOKE CIGARETTES?EVERY DAY PATIENT COUNSELED ON THE DANGERS OF TOBACCO USE AND URGED TO QUIT:04/15/2020 SMOKING CESSATION INFORMATION GIVEN05/14/2018 LATEX QUESTIONNAIRE LATEX ALLERGY : HAVE YOU EVER DEVELOPED ANY TYPE OF REACTION AFTER HANDLING LATEX PRODUCTS SUCH RUBBER GLOVES, CONDOMS, DIAPHRAGMS, BALLOONS, SOCKS, OR UNDERWEAR?NO LATEX ALLERGY : HAVE YOU EVER DEVELOPED ANY TYPE OF REACTION DURING OR AFTER DENTAL APPOINTMENT, VAGINAL/RECTAL EXAMINATION, SURGICAL PROCEDURE, OR ANY OTHER EXPOSURE?YES - PLEASE INDICATE :VAGINAL EXAM YEAST INFECTION LATEX RISK : HAVE YOU EVER HAD ANY DIFFICULTY BREATHING OR HIVES AFTER EATING OR HANDLING ANY FRUITS, OR VEGETABLES; SUCH KIWI, BANANAS, STONE FRUITS, OR CHESTNUTSNO LATEX RISK : DO YOU HAVE A PREVIOUS PERSONAL HISTORY OF MORE THAN NINE SURGERIES, SPINA BIFIDA, OR REPEATED CATHERIZATIONS? YES - PLEASE INDICATE : > 9 SURGERIES LATEX RISK : ARE YOU FREQUENTLY EXPOSED TO LATEX PRODUCTS IN YOUR OCCUPATION?NO DATE ASKED : 04/15/2020 ALCOHOL SCREENING DID YOU HAVE A DRINK CONTAINING ALCOHOL IN THE PAST YEAR?NO POINTS0 INTERPRETATIONNEGATIVE RECREATIONAL DRUG USE DRUG USE?NO CAFFEINE CAFFEINE USE?YES HOW OFTEN AND HOW MUCH? 1 CUP COFFEE/DAY SEXUAL HX HAD SEX IN THE LAST 12 MONTHS (VAGINAL, ORAL, OR ANAL)?YES HIV / HEP-C SCREENING HIV TEST OFFERED TO PATIENT:YES DATE OFFERED:12/20/2016 TEST ACCEPTED:YES ORTHODOXY [id number] NONE NO LATTER DAY BELIEFS THAT WOULD IMPACT HEALTH CARE. LANGUAGE LANGUAGES SPOKEN:KINYARWANDA EDUCATION LEVEL OF EDUCATION:HIGH SCHOOL LEARNING BARRIERS / SPECIAL NEEDS CHANGE FROM LAST VISIT?NO BARRIERS TO LEARNING?NO HEARING IMPAIRED?NO VISION IMPAIRED?NO COGNITIVELY IMPAIRED?NO READINESS TO LEARN?YES LEARNING PREFERENCES?NO LEARNING CAPABILITIES PRESENT?YES EMOTIONAL BARRIERS?NO SPECIAL DEVICES?NO PAPER GUILLOTINE OPERATOR NEEDED?NO DOMESTIC VIOLENCE DO YOU FEEL SAFE IN YOUR ENVIRONMENT?YES OCCUPATION: UNEMPLOYED. DIET: REGULAR. EXERCISE: NO REGULAR EXERCISE. MARITAL STATUS: SINGLE. OTHERS AT HOME: CHILDREN. PAIN CLINIC PFS, CLERGY, PUBLIC HEALTH REFERRALS PFS REFERRAL NEEDED?NO CLERGY REFERRAL NEEDED?NO PUBLIC HEALTH REFERRAL NEEDED?NO HAS THE PATIENT BEEN EDUCATED REGARDING HIS/HER PLAN OF CARE?YES HAS THE PATIENT BEEN EDUCATED REGARDING PAIN, THE RISK FOR PAIN, THE IMPORTANCE OF EFFECTIVE PAIN MANAGEMENT, AND THE PAIN ASSESSMENT PROCESS?YES ADVANCE DIRECTIVE ADVANCE DIRECTIVE DISCUSSED WITH PATIENT:YES 04/15/2020 PT DOES NOT HAVE ANY ADVANCED DIRECTIVES, AND SHE DECLINES INFORMATION ON HCP AT THIS TIME. GAVE QUIT SMOKING INFO 11/17/17. HOSPITALIZATION/MAJOR DIAGNOSTIC PROCEDURE SURGERIES PNEUMOTHORAX MRI- WENT TO ER HAD A ISSUE WITH HER DORSAL COLUM STIMULATOR [employer] HEATED UP AND BURNED HER MUSCLES FROM THE INSIDE SHE WAS SENT TO THE ER AFTERWORDS, 1ST MRI WITH THE DORSAL COLUM STIMULATOR 02/13/2020 REVIEW OF SYSTEMS CONSTITUTIONAL: ANY RECENT FEVER NO . CHILLS NO . WEIGHT CHANGE OF UNKNOWN REASONS NO . GASTROENTEROLOGY: NEW UNEXPLAINABLE CHANGES IN BOWEL CONTROL NO . CONSTIPATION NO . GENITOURINARY: ANY NEW CHANGE IN BLADDER CONTROL? NO . NEUROLOGY: NEW ONSET DIZZINESS OR NEUROLOGICAL CHANGES NOT MENTIONED NO . NEW NUMBNESS OR PAIN PATTERNS NOT MENTIONED AND PERTINENT TO TODAY'S VISIT NO . CARDIOLOGY: NEW CHEST PRESSURE NO . NEW CHEST PAIN NO . RESPIRATORY: UNEXPLAINABLE COUGH NO . NEW SHORTNESS OF BREATH NO . VITAL SIGNS WT 120.6 LBS, HT 64 IN, BMI 20.70 INDEX, BP 131/64 MM HG, HR 87 /MIN, RR 18 /MIN, TEMP 98.6 F, OXYGEN SAT % 99%, SAFE IN ENV? (Y/N) Y, NA INITIALS AW 1037, REVIEWED BY: Cuca DURAN RN 1044. EXAMINATION GENERAL EXAMINATION: GENERALAWAKE,ALERT ,PLEASANT . PSYCHAFFECT NORMAL . LUNGS:LUNG KAMARA ARE CLEAR TO AUSCULTATION BILATERALLY. GOOD MOVEMENT OF AIR . HEART:S1, S2 IN A REGULAR RATE AND RHYTHM. NO SIGNIFICANT MURMURS, RUBS OR GALLOPS NOTED . ASSESSMENTS LUMBAR POST-LAMINECTOMY SYNDROME - M96.1 (PRIMARY), STATUS POST DCS TRIAL TREATMENT LUMBAR POST-LAMINECTOMY SYNDROME REFILL MORPHINE SULFATE TABLET, 15 MG, 1, ORALLY FOR PAIN, EVERY 8 HOURS NEEDED MDD3, 30 DAYS, 90, REFILLS 0 STOP HYDROCODONE-ACETAMINOPHEN TABLET, 10-325 MG, 1 TABLET NEEDED, ORALLY, Q8H PRN MDD3 NOTES: CONTINUE USE OF MORPHINE 15 MG TABLET UP TO 3 TIMES A DAY NEEDED FOR PAIN. CONTINUE WITH HOME EXERCISE FOR UPPER BODY/ARMS STRENGTHENING. FOLLOW-UP IN [address] W[address] ON A DAY DR. LONGO IS HERE. PROCEDURE CODES FA211 ESTABILISHED PATIENT [facility] FAC[facility] CHARGE DISPOSITION & COMMUNICATION FOLLOW UP [address] LONGO IS HERE (REASON: DORSAL COLUMN STIMULATOR ISSUES/MEDICATION MANAGEMENT) ELECTRONICALLY SIGNED BY KARL BARRETT ON 04/16/2020 AT 12:56 PM EST DISCLAIMER : THIS IS A VISIT SUMMARY EXTRACTED FROM THE [employer] CHART. IT IS NOT A COPY OF THE [employer] PROGRESS NOTE. TIMOTHY
== END ==
LOC: M PAIN 10:30
PROVIDERS: ATTEND Nurse Practitioner Family
DX: M96.1 Postlaminectomy syndrome, not elsewhere classified (principal); F17.210 Nicotine dependence, cigarettes, uncomplicated; Z96.89 Presence of other specified functional implants; Z88.0 Allergy status to penicillin; Z88.1 Allergy status to other antibiotic agents; Z88.6 Allergy status to analgesic agent; Z88.8 Allergy status to other drugs, medicaments and biological substances; Z79.899 Other long term (current) drug therapy

== ENCOUNTER → 2020-06-04 | Outpatient (CLI) | payer MEDICARE, MEDICAID ==
--- NOTE | 2020-06-11 02:04 | ECWPNPC ---
PATIENT NAME: SAEED MCLEOD : 1975 GENDER: FEMALE VISIT DATE: 06/04/2020 DISCHARGE DATE: 06/04/20 1442 VISIT LOCKED DATE TIME: PHYSICIAN: SAWYER CASE PHYSICIAN PAGER NO: ACTIVE RESOURCE: SAWYER CASE REASON FOR APPOINTMENT 1. DORSAL COLUMN STIMULATOR ISSUES/MEDICATION MANAGEMENT HISTORY OF PRESENT ILLNESS GENERAL: HERE FOR FOLLOW-UP /MEDICATION MANAGEMENT AND DORSAL COLUMN STIM ISSUES AFTER MRI IN JANUARY. HAS BEEN KEEPING DORSAL COLUMN STIMULATOR OFF. HAVING ONLY MINIMAL IMPROVEMENT FOR SHORT TIME WITH USE OF MORPHINE 15MG IR FOR ABOUT AN HOUR AFTERTAKING THEN PAIN RETURNS AT VERY HIGH INTENSITY.SHE IS IN CONTACT WITH SAM ADAMS FROM [employer] WHO IS COMMUNICATING WITH [employer] REGARDING ISSUES WITH DCS AFTER HAVING AN MRI .REPORTING POOR SLEEP DUE TO PAIN.SHE IS VERY UPSET THAT SHE IS UNABLE TO USE DCS SINCE MRI AND DOESNT WANT TO BE ON NARCOTIC PAIN MEDICATION .SHE WOULD LIKE TO HAVE A NEW DCS PLACED IT GAVE HER SO MUCH RELIEF WHEN IT WAS WORKING PROPERLY.SHE WAS OFF ALL NARCOTIC PAIN MEDICATION AND WAS ABLE TO TOLERATE ACTIVITIES. - -. FALL RISK SCREENING: SCREENING :NO FALLS REPORTED IN THE LAST YEAR PAIN SCREENING: PATIENT HAS A COMPLAINT OF ACUTE OR CHRONIC PAIN :YES LOCATION OF PAIN:LOW BACK INTENSITY OF PAIN (SCALE OF 1 TO 10):8 WHAT DOES YOUR PAIN FEEL LIKE:CONTINOUS, SHARP DURATION:CONSTANT, AWAKENS FROM SLEEP PAIN IS INCREASED BY:ACTIVITIES, PROLONGED STANDING PAIN IS DECREASED BY:OTHERS NOTHING DECREASES THE PAIN. PATIENT STATES THE "MORPHINE RELIEVES THE PAIN FOR ABOUT AN HOUR." NURSING NOTE: -. PAIN CENTER INTAKE QUESTIONS: DO YOU HAVE A HISTORY OF MRSA? :NO DO YOU TAKE A BLOOD THINNERS? :NO DO YOU HAVE ANY BLEEDING DISORDERS? :NO ANY NEW NUMBNESS OR WEAKNESS IN YOUR LEGS OR ARMS? :NO ANY PACEMAKER,DEFIBRILLATOR, OR DORSAL COLUMN STIMULATOR? :YES DCS DO YOU HAVE ANY RASHES OR OPEN SORES? :NO ARE YOU ALLERGIC TO IV DYE? :NO ARE YOU DIABETIC? :NO ANY NEW PROBLEMS WITH YOUR MEDICATIONS? :NO HAVE YOU RECEIVED A VACCINE IN THE PAST 30 DAYS? :NO DO YOU PLAN TO RECEIVE A VACCINE IN THE NEXT 21 DAYS? :NO DO YOU NEED ANY PRESCRIPTION? :YES MORPHINE DO YOU TAKE ANY IMMUNOSUPPRESSIVE MEDICATIONS? :NO IS THERE A CHANCE YOU COULD BE ? :NO ARE YOU BREAST FEEDING? :NO CURRENT MEDICATIONS TAKING PRILOSEC DIRECTED ORALLY IF NEEDED FOR HEARTBURN TAKING ENERGY FOCUS 1 GUMMIE ORALLY TAKES 1 GUMMIE VITAMIN B12 DAILY TAKING NAPROXEN 500 MG TABLET 1 TABLET NEEDED ORALLY EVERY 12 HRS TAKING DRAMAMINE 50 MG TABLET 1 TABLET NEEDED ORALLY EVERY 6 HRS TAKING MORPHINE SULFATE 15 MG TABLET 1 ORALLY FOR PAIN EVERY 8 HOURS NEEDED MDD3 UNKNOWN LIDODERM 5 % PATCH 1 PATCH REMOVE AFTER 12 HOURS EXTERNALLY ONCE A DAY UNKNOWN LIDOCAINE 4 % GEL DIRECTED EXTERNALLY SMALL AMOUNT TO AFFECTED AREA EVERY 6 HOURS NEEDED UNKNOWN TIZANIDINE HCL 2 MG TABLET 1 TABLET NEEDED ORALLY BEFORE BEDTIME MAY REPEAT IN 4 HRS MDD2 UNKNOWN ROPINIROLE HCL 0.25 MG TABLET 1 TO 2 ORALLY BEFORE BEDTIME, NOTES: HASN'T STARTED AND NOT SURE IF SHE IS GOING TO UNKNOWN CLONIDINE HCL 0.1 MG TABLET 1 TABLET ORALLY Q8H UNKNOWN CLONIDINE HCL 0.1 MG TABLET 1 TAB ORALLY AM AND PM UNKNOWN TYLENOL 325 MG TABLET 1 TABLET NEEDED ORALLY EVERY 4 HRS NEEDED MEDICATION LIST REVIEWED AND RECONCILED WITH THE PATIENT PAST MEDICAL HISTORY CHRONIC BACK PAIN EMG SHOWS MILD, CHRONIC L S1 AND POSSIBLY L5 RADICULOPATHY; MILD CHRONIC R L5 RADICULOPATHY (08/2015) DCS ALLERGIES ASPIRIN: SWELLING - ALLERGY GABAPENTIN: "FELT YUCKY" - SIDE EFFECTS LYRICA: FELT YUCKY" - SIDE EFFECTS PENICILLIN (FOR ALLERGIES USE ONLY): SEVERE YEAST INFECTION - SIDE EFFECTS AMOXICILLIN: SEVERE YEAST INFECTION - SIDE EFFECTS SOCIAL HISTORY GENERAL: TOBACCO USE ARE YOU A:CURRENT SMOKER HOW OFTEN DO YOU SMOKE CIGARETTES?EVERY DAY HOW SOON AFTER YOU WAKE UP DO YOU SMOKE YOUR FIRST CIGARETTE?AFTER 60 MIN HOW MANY CIGARETTES A DAY DO YOU SMOKE?5 OR LESS ARE YOU INTERESTED IN QUITTING?THINKING ABOUT QUITTING CUTTING DOWN CURRENTLY, 3 A DAY RIGHT NOW PATIENT COUNSELED ON THE DANGERS OF TOBACCO USE AND URGED TO QUIT:04/15/2020 COUNSELED THE PATIENT ON SMOKING CESSATION, EDUCATION [id number]/11/2020 SMOKING CESSATION INFORMATION GIVEN05/14/2018 LATEX QUESTIONNAIRE LATEX ALLERGY : HAVE YOU EVER DEVELOPED ANY TYPE OF REACTION AFTER HANDLING LATEX PRODUCTS SUCH RUBBER GLOVES, CONDOMS, DIAPHRAGMS, BALLOONS, SOCKS, OR UNDERWEAR?NO LATEX ALLERGY : HAVE YOU EVER DEVELOPED ANY TYPE OF REACTION DURING OR AFTER DENTAL APPOINTMENT, VAGINAL/RECTAL EXAMINATION, SURGICAL PROCEDURE, OR ANY OTHER EXPOSURE?YES - PLEASE INDICATE :VAGINAL EXAM YEAST INFECTION LATEX RISK : HAVE YOU EVER HAD ANY DIFFICULTY BREATHING OR HIVES AFTER EATING OR HANDLING ANY FRUITS, OR VEGETABLES; SUCH KIWI, BANANAS, STONE FRUITS, OR CHESTNUTSNO LATEX RISK : DO YOU HAVE A PREVIOUS PERSONAL HISTORY OF MORE THAN NINE SURGERIES, SPINA BIFIDA, OR REPEATED CATHERIZATIONS? YES - PLEASE INDICATE : > 9 SURGERIES LATEX RISK : ARE YOU FREQUENTLY EXPOSED TO LATEX PRODUCTS IN YOUR OCCUPATION?NO DATE ASKED : 06/04/2020 ALCOHOL SCREENING DID YOU HAVE A DRINK CONTAINING ALCOHOL IN THE PAST YEAR?NO POINTS0 INTERPRETATIONNEGATIVE RECREATIONAL DRUG USE DRUG USE?NO CAFFEINE CAFFEINE USE?YES HOW OFTEN AND HOW MUCH? 1 CUP COFFEE/DAY SEXUAL HX HAD SEX IN THE LAST 12 MONTHS (VAGINAL, ORAL, OR ANAL)?YES HIV / HEP-C SCREENING HIV TEST OFFERED TO PATIENT:YES DATE OFFERED:12/20/2016 TEST ACCEPTED:YES YAZDANISM [id number] NONE NO SIKHISM BELIEFS THAT WOULD IMPACT HEALTH CARE. LANGUAGE LANGUAGES SPOKEN:ROMANSH EDUCATION LEVEL OF EDUCATION:HIGH SCHOOL LEARNING BARRIERS / SPECIAL NEEDS CHANGE FROM LAST VISIT?NO BARRIERS TO LEARNING?NO HEARING IMPAIRED?NO VISION IMPAIRED?NO COGNITIVELY IMPAIRED?NO READINESS TO LEARN?YES LEARNING PREFERENCES?NO LEARNING CAPABILITIES PRESENT?YES EMOTIONAL BARRIERS?NO SPECIAL DEVICES?NO FISHING INSTRUCTOR NEEDED?NO DOMESTIC VIOLENCE DO YOU FEEL SAFE IN YOUR ENVIRONMENT?YES OCCUPATION: UNEMPLOYED. DIET: REGULAR. EXERCISE: NO REGULAR EXERCISE. MARITAL STATUS: SINGLE. OTHERS AT HOME: CHILDREN. - PFS REFERRAL NEEDED?NO CLERGY REFERRAL NEEDED?NO PUBLIC HEALTH REFERRAL NEEDED?NO HAS THE PATIENT BEEN EDUCATED REGARDING HIS/HER PLAN OF CARE?YES HAS THE PATIENT BEEN EDUCATED REGARDING PAIN, THE RISK FOR PAIN, THE IMPORTANCE OF EFFECTIVE PAIN MANAGEMENT, AND THE PAIN ASSESSMENT PROCESS?YES ADVANCE DIRECTIVE ADVANCE DIRECTIVE DISCUSSED WITH PATIENT:YES 04/15/2020 PT DOES NOT HAVE ANY ADVANCED DIRECTIVES, AND SHE DECLINES INFORMATION ON HCP AT THIS TIME. GAVE QUIT SMOKING INFO 11/17/17. REVIEW OF SYSTEMS CONSTITUTIONAL: ANY RECENT FEVER NO . CHILLS NO . WEIGHT CHANGE OF UNKNOWN REASONS NO . GASTROENTEROLOGY: NEW UNEXPLAINABLE CHANGES IN BOWEL CONTROL NO . CONSTIPATION NO . GENITOURINARY: ANY NEW CHANGE IN BLADDER CONTROL? NO . NEUROLOGY: NEW ONSET DIZZINESS OR NEUROLOGICAL CHANGES NOT MENTIONED NO . NEW NUMBNESS OR PAIN PATTERNS NOT MENTIONED AND PERTINENT TO TODAY'S VISIT NO . CARDIOLOGY: NEW CHEST PRESSURE NO . NEW CHEST PAIN NO . RESPIRATORY: UNEXPLAINABLE COUGH NO . NEW SHORTNESS OF BREATH NO . VITAL SIGNS WT 121.6 LBS, HT 64 IN, BMI 20.87 INDEX, BP 118/64 MM HG, HR 73 /MIN, RR 18 /MIN, TEMP 98.0 F, OXYGEN SAT % 94%, NA INITIALS AW 1357, REVIEWED BY: ASHLEY IBRAHIM MA. EXAMINATION GENERAL EXAMINATION: GENERAL WEEPY,DEPRESSED. LUNGS:CLEAR TO AUSCULTATION BILATERALLY, NO WHEEZES, RHONCHI, RALES. HEART:NO MURMURS, REGULAR RATE AND RHYTHM. ASSESSMENTS LUMBAR POST-LAMINECTOMY SYNDROME - M96.1 (PRIMARY) TREATMENT LUMBAR POST-LAMINECTOMY SYNDROME DECREASE MORPHINE SULFATE TABLET, 15 MG, 1, ORALLY FOR PAIN, TWICE A DAY IF NEEDED FOR SEVERE PAIN EPISODES MDD 2, 30 DAYS, 60, REFILLS 0 START MORPHINE SULFATE ER TABLET EXTENDED RELEASE, 15 MG, 1 TABLET, ORALLY, Q8H TID MDD3, 30 DAYS, 90, REFILLS 0 NOTES: ISTOP REGISTRY REVIEWED AND DEMONSTRATES COMPLLIANCE. BRINGS IN MEDICATIONS WHICH IS APPROPRIATE FOR WHAT WAS DISPENSED. RECENT URINE TOXICOLOGY REVIEWED. NO UNAUTHORIZED MEDICATIONS. NO ILLICIT SUBSTANCES AND PRESCRIBED MEDICATIONS WERE PRESENT. , RISKS OF NARCOTIC/OPIOD MEDICATIONS INCLUDES BUT IS NOT LIMITED TO RISK OF DEPENDANCE/DEVELOPMENT OF ADDICTION, MOOD DISTURBANCE AND DEPRESSION, OSTEOPOROSIS, HORMONAL AND LABIDAL CHANGES, RESPIRATORY DEPRESSION AND . PATIENT IS ADVISED NOT TO DRIVE OR DRINK ALCOHOL WHILE ON THESE MEDICATIONS. PROCEDURE CODES FA211 ESTABILISHED PATIENT [facility] CHARGE DISPOSITION & COMMUNICATION FOLLOW UP 2 MONTHS (REASON: MED MGMNT/UTOX/F/U AFTER START OF MS CONTIN) ELECTRONICALLY SIGNED BY KARL BARRETT ON 06/10/2020 AT 07:48 PM EST DISCLAIMER : THIS IS A VISIT SUMMARY EXTRACTED FROM THE [employer] CHART. IT IS NOT A COPY OF THE [employer] PROGRESS NOTE. TIMOTHY
== END ==
LOC: M PAIN 13:45
PROVIDERS: ATTEND Nurse Practitioner Family
DX: M96.1 Postlaminectomy syndrome, not elsewhere classified (principal); F17.210 Nicotine dependence, cigarettes, uncomplicated; Z96.89 Presence of other specified functional implants; Z88.0 Allergy status to penicillin; Z88.1 Allergy status to other antibiotic agents; Z88.6 Allergy status to analgesic agent; Z88.8 Allergy status to other drugs, medicaments and biological substances; Z79.899 Other long term (current) drug therapy

== ENCOUNTER → 2020-06-25 | Outpatient (CLI) | payer MEDICARE, MEDICAID ==
--- NOTE | 2020-06-26 00:45 | ECWPNPC ---
PATIENT NAME: SAEED MCLEOD : 1975 GENDER: FEMALE VISIT DATE: 06/25/2020 DISCHARGE DATE: 06/25/20 1438 VISIT LOCKED DATE TIME: PHYSICIAN: TYLER LONGO MD PHYSICIAN PAGER NO: ACTIVE RESOURCE: TYLER LONGO MD REASON FOR APPOINTMENT 1. JUAN M FRANK REFERRAL TO NEUROLOGIST HISTORY OF PRESENT ILLNESS GENERAL: 45-YEAR-OLD FEMALE PATIENT WITH A HISTORY OF CHRONIC LOW BACK AND LEG PAIN. THE PATIENT DID AN MRI OF THE CERVICAL AND THORACIC SPINE ON FEBRUARY 13, 2020 AND DURING THE THORACIC MRI, SHE STARTED TO DEVELOP A WARM AND HEATING SENSATION INSIDE OF HER WHICH CREATED IN EVENT THAT DAY WHICH CAUSED HER TO GO TO THE EMERGENCY ROOM. SINCE THEN, WHEN SHE WOULD USE THE SPINAL COLUMN STIMULATOR, SHE WOULD GET THE PAIN FOR A WEEK OR SO. WE SAW HER AND DECIDED FOR HER NOT TO TURN ON THE STIMULATOR. SHE HAS BEEN MANAGING HER LOW BACK AND LEG PAIN SINCE THEN WITH MEDICATION MANAGEMENT. BEFORE THE MRI, SHE WAS RECEIVING GOOD PAIN RELIEF FROM HER STIMULATOR. PRESENT, THE PATIENT DESCRIBES THE PAIN ACHING, BURNING AND SHARP WITH A PAIN SCORE RANGING FROM 6-9/10 IN THE BACK RADIATING TO THE LEGS. PRESENTLY, SHE IS USING MORPHINE ER 15 MG TABLETS MAXIMUM OF 3 TABLETS A DAY AND 2 TABLETS A DAY OF MORPHINE 15 MG. THE PATIENT IS NOT USING [employer] ANALGESICS BECAUSE THEY CAUSE HER SIDE EFFECTS. PRESENTLY, IN TERMS OF THE THORACIC AND UPPER EXTREMITIES, THE PATIENT IS HAVING MUSCLE WEAKNESS AND PAIN IN HER UPPER EXTREMITIES. SHE STATES THAT IF SHE TRIES TO CLIMB A FLIGHT OF STAIRS, HER LEGS FEEL WEAK AND FATIGUED. SHE REPORTS AN INCREASED PAIN IN THE UPPER EXTREMITIES WHEN SHE USES THE ARMS. THE THORACIC AREA IS NOT CURRENTLY GIVING HER ANY PROBLEMS. THE PATIENT STATES THAT SHE HAS NEVER HAD MUSCLE PROBLEMS AND THAT ALL OF HER PAIN HAS ALWAYS BEEN NERVES PAIN UNTIL THE MRI. FALL RISK SCREENING: SCREENING :NO FALLS REPORTED IN THE LAST YEAR PAIN SCREENING: PATIENT HAS A COMPLAINT OF ACUTE OR CHRONIC PAIN :YES LOCATION OF PAIN:LOW BACK, LEG(S) INTENSITY OF PAIN (SCALE OF 1 TO 10):6 WHAT DOES YOUR PAIN FEEL LIKE:ACHING, BURNING, SHARP, STABBING, THROBBING, SHOOTING DURATION:CONTINOUS, CONSTANT PAIN IS INCREASED BY:ACTIVITIES PAIN IS DECREASED BY:USE OF PAIN MEDICATIONS NURSING NOTE: -. PAIN CENTER INTAKE QUESTIONS: DO YOU HAVE A HISTORY OF MRSA? :NO DO YOU TAKE A BLOOD THINNERS? :NO DO YOU HAVE ANY BLEEDING DISORDERS? :NO ANY NEW NUMBNESS OR WEAKNESS IN YOUR LEGS OR ARMS? :NO ANY PACEMAKER,DEFIBRILLATOR, OR DORSAL COLUMN STIMULATOR? :YES DCS DO YOU HAVE ANY RASHES OR OPEN SORES? :NO ARE YOU ALLERGIC TO IV DYE? :NO ARE YOU DIABETIC? :NO ANY NEW PROBLEMS WITH YOUR MEDICATIONS? :NO HAVE YOU RECEIVED A VACCINE IN THE PAST 30 DAYS? :NO DO YOU PLAN TO RECEIVE A VACCINE IN THE NEXT 21 DAYS? :NO DO YOU NEED ANY PRESCRIPTION? :NO DO YOU TAKE ANY IMMUNOSUPPRESSIVE MEDICATIONS? :NO IS THERE A CHANCE YOU COULD BE ? :NO ARE YOU BREAST FEEDING? :NO CURRENT MEDICATIONS TAKING PRILOSEC DIRECTED ORALLY IF NEEDED FOR HEARTBURN TAKING ENERGY FOCUS 1 GUMMIE ORALLY TAKES 1 GUMMIE VITAMIN B12 DAILY TAKING NAPROXEN 500 MG TABLET 1 TABLET NEEDED ORALLY EVERY 12 HRS TAKING DRAMAMINE 50 MG TABLET 1 TABLET NEEDED ORALLY EVERY 6 HRS TAKING MORPHINE SULFATE ER 15 MG TABLET EXTENDED RELEASE 1 TABLET ORALLY Q8H TID MDD3 TAKING MORPHINE SULFATE 15 MG TABLET 1 ORALLY FOR PAIN TWICE A DAY IF NEEDED FOR SEVERE PAIN EPISODES MDD 2 UNKNOWN LIDODERM 5 % PATCH 1 PATCH REMOVE AFTER 12 HOURS EXTERNALLY ONCE A DAY UNKNOWN LIDOCAINE 4 % GEL DIRECTED EXTERNALLY SMALL AMOUNT TO AFFECTED AREA EVERY 6 HOURS NEEDED UNKNOWN TIZANIDINE HCL 2 MG TABLET 1 TABLET NEEDED ORALLY BEFORE BEDTIME MAY REPEAT IN 4 HRS MDD2 UNKNOWN ROPINIROLE HCL 0.25 MG TABLET 1 TO 2 ORALLY BEFORE BEDTIME, NOTES: HASN'T STARTED AND NOT SURE IF SHE IS GOING TO UNKNOWN CLONIDINE HCL 0.1 MG TABLET 1 TABLET ORALLY Q8H UNKNOWN CLONIDINE HCL 0.1 MG TABLET 1 TAB ORALLY AM AND PM UNKNOWN TYLENOL 325 MG TABLET 1 TABLET NEEDED ORALLY EVERY 4 HRS NEEDED MEDICATION LIST REVIEWED AND RECONCILED WITH THE PATIENT PAST MEDICAL HISTORY CHRONIC BACK PAIN EMG SHOWS MILD, CHRONIC L S1 AND POSSIBLY L5 RADICULOPATHY; MILD CHRONIC R L5 RADICULOPATHY (08/2015) DCS ALLERGIES ASPIRIN: SWELLING - ALLERGY GABAPENTIN: "FELT YUCKY" - SIDE EFFECTS LYRICA: FELT YUCKY" - SIDE EFFECTS PENICILLIN (FOR ALLERGIES USE ONLY): SEVERE YEAST INFECTION - SIDE EFFECTS AMOXICILLIN: SEVERE YEAST INFECTION - SIDE EFFECTS SOCIAL HISTORY GENERAL: TOBACCO USE ARE YOU A:CURRENT SMOKER HOW OFTEN DO YOU SMOKE CIGARETTES?EVERY DAY HOW SOON AFTER YOU WAKE UP DO YOU SMOKE YOUR FIRST CIGARETTE?AFTER 60 MIN HOW MANY CIGARETTES A DAY DO YOU SMOKE?5 OR LESS ARE YOU INTERESTED IN QUITTING?THINKING ABOUT QUITTING CUTTING DOWN CURRENTLY, 3 A DAY RIGHT NOW PATIENT COUNSELED ON THE DANGERS OF TOBACCO USE AND URGED TO QUIT:04/15/2020 COUNSELED THE PATIENT ON SMOKING CESSATION, EDUCATION [id number]/11/2020 SMOKING CESSATION INFORMATION GIVEN05/14/2018 LATEX QUESTIONNAIRE LATEX ALLERGY : HAVE YOU EVER DEVELOPED ANY TYPE OF REACTION AFTER HANDLING LATEX PRODUCTS SUCH RUBBER GLOVES, CONDOMS, DIAPHRAGMS, BALLOONS, SOCKS, OR UNDERWEAR?NO LATEX ALLERGY : HAVE YOU EVER DEVELOPED ANY TYPE OF REACTION DURING OR AFTER DENTAL APPOINTMENT, VAGINAL/RECTAL EXAMINATION, SURGICAL PROCEDURE, OR ANY OTHER EXPOSURE?YES - PLEASE INDICATE :VAGINAL EXAM YEAST INFECTION LATEX RISK : HAVE YOU EVER HAD ANY DIFFICULTY BREATHING OR HIVES AFTER EATING OR HANDLING ANY FRUITS, OR VEGETABLES; SUCH KIWI, BANANAS, STONE FRUITS, OR CHESTNUTSNO LATEX RISK : DO YOU HAVE A PREVIOUS PERSONAL HISTORY OF MORE THAN NINE SURGERIES, SPINA BIFIDA, OR REPEATED CATHERIZATIONS? YES - PLEASE INDICATE : > 9 SURGERIES LATEX RISK : ARE YOU FREQUENTLY EXPOSED TO LATEX PRODUCTS IN YOUR OCCUPATION?NO DATE ASKED : 06/04/2020 ALCOHOL SCREENING DID YOU HAVE A DRINK CONTAINING ALCOHOL IN THE PAST YEAR?NO POINTS0 INTERPRETATIONNEGATIVE RECREATIONAL DRUG USE DRUG USE?NO CAFFEINE CAFFEINE USE?YES HOW OFTEN AND HOW MUCH? 1 CUP COFFEE/DAY SEXUAL HX HAD SEX IN THE LAST 12 MONTHS (VAGINAL, ORAL, OR ANAL)?YES HIV / HEP-C SCREENING HIV TEST OFFERED TO PATIENT:YES DATE OFFERED:12/20/2016 TEST ACCEPTED:YES GNOSTICISM [id number] NONE NO PRESYBETERIAN BELIEFS THAT WOULD IMPACT HEALTH CARE. LANGUAGE LANGUAGES SPOKEN:YI EDUCATION LEVEL OF EDUCATION:HIGH SCHOOL LEARNING BARRIERS / SPECIAL NEEDS CHANGE FROM LAST VISIT?NO BARRIERS TO LEARNING?NO HEARING IMPAIRED?NO VISION IMPAIRED?NO COGNITIVELY IMPAIRED?NO READINESS TO LEARN?YES LEARNING PREFERENCES?NO LEARNING CAPABILITIES PRESENT?YES EMOTIONAL BARRIERS?NO SPECIAL DEVICES?NO EXTRACTOR PULLER NEEDED?NO DOMESTIC VIOLENCE DO YOU FEEL SAFE IN YOUR ENVIRONMENT?YES OCCUPATION: UNEMPLOYED. DIET: REGULAR. EXERCISE: NO REGULAR EXERCISE. MARITAL STATUS: SINGLE. OTHERS AT HOME: CHILDREN. - PFS REFERRAL NEEDED?NO CLERGY REFERRAL NEEDED?NO PUBLIC HEALTH REFERRAL NEEDED?NO HAS THE PATIENT BEEN EDUCATED REGARDING HIS/HER PLAN OF CARE?YES HAS THE PATIENT BEEN EDUCATED REGARDING PAIN, THE RISK FOR PAIN, THE IMPORTANCE OF EFFECTIVE PAIN MANAGEMENT, AND THE PAIN ASSESSMENT PROCESS?YES ADVANCE DIRECTIVE ADVANCE DIRECTIVE DISCUSSED WITH PATIENT:YES 04/15/2020 PT DOES NOT HAVE ANY ADVANCED DIRECTIVES, AND SHE DECLINES INFORMATION ON HCP AT THIS TIME. GAVE QUIT SMOKING INFO 11/17/17. REVIEW OF SYSTEMS CONSTITUTIONAL: ANY RECENT FEVER NO . CHILLS NO . WEIGHT CHANGE OF UNKNOWN REASONS NO . GASTROENTEROLOGY: NEW UNEXPLAINABLE CHANGES IN BOWEL CONTROL NO . CONSTIPATION NO . GENITOURINARY: ANY NEW CHANGE IN BLADDER CONTROL? NO . NEUROLOGY: NEW ONSET DIZZINESS OR NEUROLOGICAL CHANGES NOT MENTIONED NO . NEW NUMBNESS OR PAIN PATTERNS NOT MENTIONED AND PERTINENT TO TODAY'S VISIT NO . CARDIOLOGY: NEW CHEST PRESSURE NO . NEW CHEST PAIN NO . RESPIRATORY: UNEXPLAINABLE COUGH NO . NEW SHORTNESS OF BREATH NO . VITAL SIGNS WT 122.6 LBS, HT 64 IN, BMI 21.04 INDEX, BP 131/76 MM HG, HR 77 /MIN, RR 18 /MIN, TEMP 99.9 F, OXYGEN SAT % 98%, SAFE IN ENV? (Y/N) Y, NA INITIALS AW 1310, REVIEWED BY: EM. EXAMINATION GENERAL EXAMINATION: THE PATIENT IS ALERT, ORIENTED TIMES THREE AND COOPERATIVE. LUNGS ARE CLEAR TO AUSCULTATION. HEART SHOWS REGULAR RHYTHM, NO MURMURS AND NO GALLOPS. THERE IS TENDERNESS IS THE LOW BACK IN THE PARASPINAL MUSCLE GROUP. THE LEFT LEG IS WEAKER THAN THE RIGHT LEG ON FLEXION AND EXTENSION. STRAIGHT LEG RAISE IS POSITIVE FOR RADICULOPATHY ON THE LEFT AT 40 DEGREES. FLEXION IN THE LEFT ANKLE IS DECREASED COMPARED TO THE RIGHT. THE PATIENT CAN PUT HER BODY ON HER TOES. ASSESSMENTS LUMBAR POST-LAMINECTOMY SYNDROME - M96.1 (PRIMARY) LUMBAR RADICULOPATHY - M54.16 SPINAL CORD STIMULATOR STATUS - Z96.89, INCIDENT AFTER MRI TREATMENT LUMBAR POST-LAMINECTOMY SYNDROME CLINICAL NOTES: I DISCUSSED ALTERNATIVES WITH SAEED. I DISCUSSED ABOUT TURNING ON THE STIMULATOR WITH SAM ADAMS PRESENT SO WE CAN USE SPECIFIC NUMBERS TO CALCULATE DATA. HOPEFULLY THE PAIN DOES NOT COME BACK. THE PATIENT REPORTS THAT SHE AGREES WITH THAT PLAN SO WE WILL MOVE FORWARD WITH THAT. I DISCUSSED WITH SAEED ABOUT SENDING HER TO A NEUROLOGIST. SHE STATES THAT SHE WANTS TO SEE SOMEONE IN [place], SO I WILL REFER HER. I, DEZ DHILLON, DOCUMENTED THE ABOVE INFORMATION ACTING A SCRIBE FOR DR. LONGO. I HAVE REVIEWED THE ABOVE DOCUMENT, WRITTEN BY DEZ DHILLON, YAM CURER, AND I VERIFY THAT IT IS ACCURATE. [facility] RE[facility]ON:THORACIC PAIN WHEN SPINAL CORD STIMULATOR IS TURNED ON ,STATUS POST SPINAL CORD STIMULATOR ISSUES AFTER MRI,LEG AND BACK PAIN SPINAL CORD STIMULATOR STATUS REFERRAL TO:[facility] REASON:THORACIC PAIN WHEN SPINAL CORD STIMULATOR IS TURNED ON ,STATUS POST SPINAL CORD STIMULATOR ISSUES AFTER MRI,LEG AND BACK PAIN PROCEDURE CODES FA211 ESTABILISHED PATIENT [facility] CHARGE [id number] OFFICE/OUTPATIENT VISIT EST DISPOSITION & COMMUNICATION FOLLOW UP FOLLOW UP WITH SAWYER LIRA (REASON: PATIENT WILL COME IN NEXT WEEK WITH SAM ADAMS TO TRY TO TURN ON HER DEVICE. SHE WILL CALL US WITH THAT DATE AND TIME) ELECTRONICALLY SIGNED BY TYLER LONGO MD, MD ON 06/25/2020 AT 04:52 PM EST DISCLAIMER : THIS IS A VISIT SUMMARY EXTRACTED FROM THE [employer] CHART. IT IS NOT A COPY OF THE [employer] PROGRESS NOTE. TIMOTHY
== END ==
LOC: M PAIN 13:00
PROVIDERS: ATTEND Anesthesiology
DX: M96.1 Postlaminectomy syndrome, not elsewhere classified (principal); M54.16 Radiculopathy, lumbar region; Z96.89 Presence of other specified functional implants; F17.210 Nicotine dependence, cigarettes, uncomplicated; Z88.0 Allergy status to penicillin; Z88.1 Allergy status to other antibiotic agents; Z88.6 Allergy status to analgesic agent; Z88.8 Allergy status to other drugs, medicaments and biological substances; Z79.891 Long term (current) use of opiate analgesic; Z79.899 Other long term (current) drug therapy

== ENCOUNTER → 2020-07-02 | Outpatient (CLI) | payer MEDICARE, MEDICAID ==
--- NOTE | 2020-07-09 00:34 | ECWPNPC ---
PATIENT NAME: SAEED MCLEOD : 1975 GENDER: FEMALE VISIT DATE: 07/02/2020 DISCHARGE DATE: 07/02/20 1533 VISIT LOCKED DATE TIME: PHYSICIAN: TYLER LONGO MD PHYSICIAN PAGER NO: ACTIVE RESOURCE: TYLER LONGO MD REASON FOR APPOINTMENT 1. TALK WITH SAM ADAMS BEFOREHAND HISTORY OF PRESENT ILLNESS GENERAL: 45-YEAR-OLD FEMALE PATIENT WITH A HISTORY OF CHRONIC LOW BACK AND LEG PAIN. THE PATIENT DESCRIBES THE PAIN ACHING AND SEVERE WITH A PAIN SCORE RANGING FROM 6-9/10. THE PATIENT HAD AN MRI AND STARTED HAVING THORACIC PAIN AFTER THAT. SHE HAS NOT USED HER SPINAL CORD STIMULATOR SINCE THEN. THE PATIENT CHARGED HER DEVICE LAST NIGHT AT 11:00 P.M. AND THIS MORNING, AT 12.20 A.M., SHE STARTED TO GET A STINGING SENSATION AT WHERE HER BATTERY IS LOCATED. PAIN SHOT DOWN HER ARM AND HER FINGER AND LASTED A FEW HOURS. A LITTLE BIT LATER, SHE HAD A SEVERE PAIN IN HER LOW BACK THAT RADIATED TO HER SIDE. AFTER A WHILE, ALL OF THOSE SENSATIONS WENT AWAY AND SHE WAS DOING WELL. FALL RISK SCREENING: SCREENING : NO FALLS REPORTED IN THE LAST YEAR. PAIN SCREENING: PATIENT HAS A COMPLAINT OF ACUTE OR CHRONIC PAIN :YES LOCATION OF PAIN:LOW BACK, LEG(S) INTENSITY OF PAIN (SCALE OF 1 TO 10):6 WHAT DOES YOUR PAIN FEEL LIKE:ACHING, BURNING, SHARP, STABBING, THROBBING, SHOOTING DURATION:CONTINOUS, CONSTANT PAIN IS INCREASED BY:ACTIVITIES PAIN IS DECREASED BY:USE OF PAIN MEDICATIONS NURSING NOTE: -. PAIN CENTER INTAKE QUESTIONS: DO YOU HAVE A HISTORY OF MRSA? :NO DO YOU TAKE A BLOOD THINNERS? :NO DO YOU HAVE ANY BLEEDING DISORDERS? :NO ANY NEW NUMBNESS OR WEAKNESS IN YOUR LEGS OR ARMS? :YES ARMS AND LEGS ANY PACEMAKER,DEFIBRILLATOR, OR DORSAL COLUMN STIMULATOR? :YES DCS DO YOU HAVE ANY RASHES OR OPEN SORES? :NO ARE YOU ALLERGIC TO IV DYE? :NO ARE YOU DIABETIC? :NO ANY NEW PROBLEMS WITH YOUR MEDICATIONS? :NO HAVE YOU RECEIVED A VACCINE IN THE PAST 30 DAYS? :NO DO YOU PLAN TO RECEIVE A VACCINE IN THE NEXT 21 DAYS? :NO DO YOU NEED ANY PRESCRIPTION? :NO DO YOU TAKE ANY IMMUNOSUPPRESSIVE MEDICATIONS? :NO DO YOU HAVE ANY KIDNEY OR LIVER DISEASE? :NO IS THERE A CHANCE YOU COULD BE ? :NO ARE YOU BREAST FEEDING? :NO CURRENT MEDICATIONS TAKING PRILOSEC DIRECTED ORALLY IF NEEDED FOR HEARTBURN TAKING ENERGY FOCUS 1 GUMMIE ORALLY TAKES 1 GUMMIE VITAMIN B12 DAILY TAKING NAPROXEN 500 MG TABLET 1 TABLET NEEDED ORALLY EVERY 12 HRS TAKING DRAMAMINE 50 MG TABLET 1 TABLET NEEDED ORALLY EVERY 6 HRS TAKING MORPHINE SULFATE ER 15 MG TABLET EXTENDED RELEASE 1 TABLET ORALLY Q8H TID MDD3 TAKING MORPHINE SULFATE 15 MG TABLET 1 ORALLY FOR PAIN TWICE A DAY IF NEEDED FOR SEVERE PAIN EPISODES MDD 2 NOT-TAKING LIDODERM 5 % PATCH 1 PATCH REMOVE AFTER 12 HOURS EXTERNALLY ONCE A DAY NOT-TAKING LIDOCAINE 4 % GEL DIRECTED EXTERNALLY SMALL AMOUNT TO AFFECTED AREA EVERY 6 HOURS NEEDED NOT-TAKING TIZANIDINE HCL 2 MG TABLET 1 TABLET NEEDED ORALLY BEFORE BEDTIME MAY REPEAT IN 4 HRS MDD2 NOT-TAKING ROPINIROLE HCL 0.25 MG TABLET 1 TO 2 ORALLY BEFORE BEDTIME, NOTES: HASN'T STARTED AND NOT SURE IF SHE IS GOING TO NOT-TAKING CLONIDINE HCL 0.1 MG TABLET 1 TABLET ORALLY Q8H NOT-TAKING CLONIDINE HCL 0.1 MG TABLET 1 TAB ORALLY AM AND PM NOT-TAKING TYLENOL 325 MG TABLET 1 TABLET NEEDED ORALLY EVERY 4 HRS NEEDED MEDICATION LIST REVIEWED AND RECONCILED WITH THE PATIENT PAST MEDICAL HISTORY CHRONIC BACK PAIN EMG SHOWS MILD, CHRONIC L S1 AND POSSIBLY L5 RADICULOPATHY; MILD CHRONIC R L5 RADICULOPATHY (08/2015) DCS ALLERGIES ASPIRIN: SWELLING - ALLERGY GABAPENTIN: "FELT YUCKY" - SIDE EFFECTS LYRICA: FELT YUCKY" - SIDE EFFECTS PENICILLIN (FOR ALLERGIES USE ONLY): SEVERE YEAST INFECTION - SIDE EFFECTS AMOXICILLIN: SEVERE YEAST INFECTION - SIDE EFFECTS SOCIAL HISTORY GENERAL: TOBACCO USE ARE YOU A:CURRENT SMOKER HOW OFTEN DO YOU SMOKE CIGARETTES?EVERY DAY HOW SOON AFTER YOU WAKE UP DO YOU SMOKE YOUR FIRST CIGARETTE?AFTER 60 MIN HOW MANY CIGARETTES A DAY DO YOU SMOKE?5 OR LESS ARE YOU INTERESTED IN QUITTING?THINKING ABOUT QUITTING CUTTING DOWN CURRENTLY, 3 A DAY RIGHT NOW PATIENT COUNSELED ON THE DANGERS OF TOBACCO USE AND URGED TO QUIT:04/15/2020 COUNSELED THE PATIENT ON SMOKING CESSATION, EDUCATION [id number]/11/2020 SMOKING CESSATION INFORMATION GIVEN05/14/2018 LATEX QUESTIONNAIRE LATEX ALLERGY : HAVE YOU EVER DEVELOPED ANY TYPE OF REACTION AFTER HANDLING LATEX PRODUCTS SUCH RUBBER GLOVES, CONDOMS, DIAPHRAGMS, BALLOONS, SOCKS, OR UNDERWEAR?NO LATEX ALLERGY : HAVE YOU EVER DEVELOPED ANY TYPE OF REACTION DURING OR AFTER DENTAL APPOINTMENT, VAGINAL/RECTAL EXAMINATION, SURGICAL PROCEDURE, OR ANY OTHER EXPOSURE?YES - PLEASE INDICATE :VAGINAL EXAM YEAST INFECTION DATE ASKED : 06/04/2020 LATEX RISK : HAVE YOU EVER HAD ANY DIFFICULTY BREATHING OR HIVES AFTER EATING OR HANDLING ANY FRUITS, OR VEGETABLES; SUCH KIWI, BANANAS, STONE FRUITS, OR CHESTNUTSNO LATEX RISK : DO YOU HAVE A PREVIOUS PERSONAL HISTORY OF MORE THAN NINE SURGERIES, SPINA BIFIDA, OR REPEATED CATHERIZATIONS? YES - PLEASE INDICATE : > 9 SURGERIES LATEX RISK : ARE YOU FREQUENTLY EXPOSED TO LATEX PRODUCTS IN YOUR OCCUPATION?NO ALCOHOL SCREENING DID YOU HAVE A DRINK CONTAINING ALCOHOL IN THE PAST YEAR?NO POINTS0 INTERPRETATIONNEGATIVE RECREATIONAL DRUG USE DRUG USE?NO CAFFEINE CAFFEINE USE?YES HOW OFTEN AND HOW MUCH? 1 CUP COFFEE/DAY SEXUAL HX HAD SEX IN THE LAST 12 MONTHS (VAGINAL, ORAL, OR ANAL)?YES HIV / HEP-C SCREENING HIV TEST OFFERED TO PATIENT:YES DATE OFFERED:12/20/2016 TEST ACCEPTED:YES ROMAN CATHOLIC [id number] NONE NO TEMPLE BELIEFS THAT WOULD IMPACT HEALTH CARE. LANGUAGE LANGUAGES SPOKEN:[place] EDUCATION LEVEL OF EDUCATION:HIGH SCHOOL LEARNING BARRIERS / SPECIAL NEEDS CHANGE FROM LAST VISIT?NO BARRIERS TO LEARNING?NO HEARING IMPAIRED?NO VISION IMPAIRED?NO COGNITIVELY IMPAIRED?NO READINESS TO LEARN?YES LEARNING PREFERENCES?NO LEARNING CAPABILITIES PRESENT?YES EMOTIONAL BARRIERS?NO SPECIAL DEVICES?NO WREATH MACHINE TENDER NEEDED?NO DOMESTIC VIOLENCE DO YOU FEEL SAFE IN YOUR ENVIRONMENT?YES OCCUPATION: UNEMPLOYED. DIET: REGULAR. EXERCISE: NO REGULAR EXERCISE. MARITAL STATUS: SINGLE. OTHERS AT HOME: CHILDREN. - PFS REFERRAL NEEDED?NO CLERGY REFERRAL NEEDED?NO PUBLIC HEALTH REFERRAL NEEDED?NO HAS THE PATIENT BEEN EDUCATED REGARDING HIS/HER PLAN OF CARE?YES HAS THE PATIENT BEEN EDUCATED REGARDING PAIN, THE RISK FOR PAIN, THE IMPORTANCE OF EFFECTIVE PAIN MANAGEMENT, AND THE PAIN ASSESSMENT PROCESS?YES ADVANCE DIRECTIVE ADVANCE DIRECTIVE DISCUSSED WITH PATIENT:YES 04/15/2020 PT DOES NOT HAVE ANY ADVANCED DIRECTIVES, AND SHE DECLINES INFORMATION ON HCP AT THIS TIME. GAVE QUIT SMOKING INFO 11/17/17. REVIEW OF SYSTEMS CONSTITUTIONAL: ANY RECENT FEVER NO . CHILLS NO . WEIGHT CHANGE OF UNKNOWN REASONS NO . GASTROENTEROLOGY: NEW UNEXPLAINABLE CHANGES IN BOWEL CONTROL NO . CONSTIPATION NO . GENITOURINARY: ANY NEW CHANGE IN BLADDER CONTROL? NO . NEUROLOGY: NEW ONSET DIZZINESS OR NEUROLOGICAL CHANGES NOT MENTIONED NO . NEW NUMBNESS OR PAIN PATTERNS NOT MENTIONED AND PERTINENT TO TODAY'S VISIT SEE HISTORY OF PRESENT ILLNESS . CARDIOLOGY: NEW CHEST PRESSURE NO . PATIENT DENIES NO . RESPIRATORY: UNEXPLAINABLE COUGH NO . NEW SHORTNESS OF BREATH NO . VITAL SIGNS WT 122.6 LBS, HT 64 IN, BMI 21.04 INDEX, BP 123/64 MM HG, HR 87 /MIN, RR 18 /MIN, TEMP 98.4 F, OXYGEN SAT % 99%, SAFE IN ENV? (Y/N) Y, NA INITIALS AW 1417, REVIEWED BY: EM. EXAMINATION GENERAL EXAMINATION: THE PATIENT IS ALERT, ORIENTED TIMES THREE AND COOPERATIVE. ASSESSMENTS LUMBAR POST-LAMINECTOMY SYNDROME - M96.1 (PRIMARY), STATUS POST DCS TRIAL SPINAL CORD STIMULATOR STATUS - Z96.89, INCIDENT AFTER MRI TREATMENT LUMBAR POST-LAMINECTOMY SYNDROME CLINICAL NOTES: SAM ADAMS FROM [employer] IS HERE TODAY WITH MS. MCLEOD TO TEST HER DEVICE. I RAN A STIMULATION WITH THE UPPER CONTACTS WITH FOLLOWING PARAMETERS FOR 5 MINUTES: 3.5 MA (AMPLIUDE), 200 PULSE WIDTH, 200 HZ (RATE) WHICH IS A NO FEEL PROGRAM. WE WAITED 20 MINUTES AND THERE WAS NO PAIN. WE DECIDED TO RUN IT FOR 10 ADDITIONAL MINUTES TODAY. THE PATIENT STATES THAT AFTER THAT, HER MUSCLES IN HER ARMS AND LEGS WERE HEAVY AND WEAK. THE PATIENT WILL COME BACK NEXT WEEK FOR MORE TESTING. THE PATIENT REPORTS UNDERSTANDING AND AGREES WITH THE PLAN. I, DEZ DHILLON, DOCUMENTED THE ABOVE INFORMATION ACTING A SCRIBE FOR DR. LONGO. I HAVE REVIEWED THE ABOVE DOCUMENT, WRITTEN BY DEZ DHILLON, HOSPICE VOLUNTEER, AND I VERIFY THAT IT IS ACCURATE. PROCEDURE CODES FA211 ESTABILISHED PATIENT [facility] CHARGE [id number] OFFICE/OUTPATIENT VISIT EST DISPOSITION & COMMUNICATION FOLLOW UP PATIENT WILL FOLLOW UP NEXT WEEK AND WILL CALL ME (REASON: TEST SPINAL COLUMN STIMULATOR ) ELECTRONICALLY SIGNED BY TYLER LONGO MD, MD ON 07/08/2020 AT 12:15 PM EST DISCLAIMER : THIS IS A VISIT SUMMARY EXTRACTED FROM THE [employer] CHART. IT IS NOT A COPY OF THE [employer] PROGRESS NOTE. TIMOTHY
== END ==
LOC: M PAIN 14:00
PROVIDERS: ATTEND Anesthesiology
DX: M96.1 Postlaminectomy syndrome, not elsewhere classified (principal); Z96.89 Presence of other specified functional implants; F17.210 Nicotine dependence, cigarettes, uncomplicated; Z88.0 Allergy status to penicillin; Z88.1 Allergy status to other antibiotic agents; Z88.6 Allergy status to analgesic agent; Z88.8 Allergy status to other drugs, medicaments and biological substances; Z79.891 Long term (current) use of opiate analgesic; Z79.899 Other long term (current) drug therapy

== ENCOUNTER → 2020-07-28 | Outpatient (CLI) | payer MEDICARE, MEDICAID ==
--- NOTE | 2020-07-31 23:41 | ECWPNPC ---
PATIENT NAME: SAEED MCLEOD : 1975 GENDER: FEMALE VISIT DATE: 07/28/2020 DISCHARGE DATE: 07/28/20 1547 VISIT LOCKED DATE TIME: PHYSICIAN: TYLER LONGO MD PHYSICIAN PAGER NO: ACTIVE RESOURCE: TYLER LONGO MD REASON FOR APPOINTMENT 1. F/U HISTORY OF PRESENT ILLNESS GENERAL: 45-YEAR-OLD FEMALE PATIENT WITH A HISTORY OF CHRONIC LOW BACK PAIN. THE PATIENT DESCRIBES THE PAIN SEVERE, STABBING AND ACHING WITH A PAIN SCORE RANGING FROM 8-10/10. SHE IS USING MORHPINE TO CONTROL THE PAIN. SHE HAS NOT BEEN ABLE TO USE HER SPINAL CORD STIMULATOR SINCE THE MRI LAST YEAR. FALL RISK SCREENING: SCREENING : NO FALLS REPORTED IN THE LAST YEAR. PAIN SCREENING: PATIENT HAS A COMPLAINT OF ACUTE OR CHRONIC PAIN :YES WHAT DOES YOUR PAIN FEEL LIKE:BURNING, SHARP, TENDER DURATION:CONTINOUS NURSING NOTE: -. CURRENT MEDICATIONS TAKING PRILOSEC DIRECTED ORALLY IF NEEDED FOR HEARTBURN TAKING ENERGY FOCUS 1 GUMMIE ORALLY TAKES 1 GUMMIE VITAMIN B12 DAILY TAKING NAPROXEN 500 MG TABLET 1 TABLET NEEDED ORALLY EVERY 12 HRS TAKING DRAMAMINE 50 MG TABLET 1 TABLET NEEDED ORALLY EVERY 6 HRS TAKING MORPHINE SULFATE ER 15 MG TABLET EXTENDED RELEASE 1 TABLET ORALLY Q8H TID MDD3 TAKING MORPHINE SULFATE 15 MG TABLET 1 ORALLY FOR PAIN TWICE A DAY IF NEEDED FOR SEVERE PAIN EPISODES MDD 2 NOT-TAKING LIDODERM 5 % PATCH 1 PATCH REMOVE AFTER 12 HOURS EXTERNALLY ONCE A DAY NOT-TAKING LIDOCAINE 4 % GEL DIRECTED EXTERNALLY SMALL AMOUNT TO AFFECTED AREA EVERY 6 HOURS NEEDED NOT-TAKING TIZANIDINE HCL 2 MG TABLET 1 TABLET NEEDED ORALLY BEFORE BEDTIME MAY REPEAT IN 4 HRS MDD2 NOT-TAKING ROPINIROLE HCL 0.25 MG TABLET 1 TO 2 ORALLY BEFORE BEDTIME, NOTES: HASN'T STARTED AND NOT SURE IF SHE IS GOING TO NOT-TAKING CLONIDINE HCL 0.1 MG TABLET 1 TABLET ORALLY Q8H NOT-TAKING CLONIDINE HCL 0.1 MG TABLET 1 TAB ORALLY AM AND PM NOT-TAKING TYLENOL 325 MG TABLET 1 TABLET NEEDED ORALLY EVERY 4 HRS NEEDED PAST MEDICAL HISTORY CHRONIC BACK PAIN EMG SHOWS MILD, CHRONIC L S1 AND POSSIBLY L5 RADICULOPATHY; MILD CHRONIC R L5 RADICULOPATHY (08/2015) DCS ALLERGIES ASPIRIN: SWELLING - ALLERGY GABAPENTIN: "FELT YUCKY" - SIDE EFFECTS LYRICA: FELT YUCKY" - SIDE EFFECTS PENICILLIN (FOR ALLERGIES USE ONLY): SEVERE YEAST INFECTION - SIDE EFFECTS AMOXICILLIN: SEVERE YEAST INFECTION - SIDE EFFECTS REVIEW OF SYSTEMS CONSTITUTIONAL: ANY RECENT FEVER NO . CHILLS NO . WEIGHT CHANGE OF UNKNOWN REASONS NO . GASTROENTEROLOGY: NEW UNEXPLAINABLE CHANGES IN BOWEL CONTROL NO . CONSTIPATION NO . GENITOURINARY: ANY NEW CHANGE IN BLADDER CONTROL? NO . NEUROLOGY: NEW ONSET DIZZINESS OR NEUROLOGICAL CHANGES NOT MENTIONED NO . NEW NUMBNESS OR PAIN PATTERNS NOT MENTIONED AND PERTINENT TO TODAY'S VISIT NO . CARDIOLOGY: NEW CHEST PRESSURE NO . PATIENT DENIES NO . RESPIRATORY: UNEXPLAINABLE COUGH NO . NEW SHORTNESS OF BREATH NO . EXAMINATION GENERAL EXAMINATION: THE PATIENT IS ALERT, ORIENTED TIMES THREE AND COOPERATIVE. SHE IS VERY UPSET WITH THE PAIN THAT SHE IS HAVING IN THE BACK AREA. SHE TRIED TO CHANGE POSITIONS. ASSESSMENTS LUMBAR POST-LAMINECTOMY SYNDROME - M96.1 (PRIMARY) TREATMENT LUMBAR POST-LAMINECTOMY SYNDROME CLINICAL NOTES: TODAY, WE RAN THE STIMULATOR FOR 15 MINUTES IN THE FOLLOWING PARAMETERS; 3.5 MA (AMPLITUDE), 200 PULSE WIDTH, 200 HZ (RATE) WHICH IS A NO FEEL PROGRAM. THE PATIENT WAS NOT HAVING THE SENSATIONS WHILE USING THE NON TONIC, BUT SHE WAS HAVING HER NORMAL PAIN. WE ONLY RAN THE TEST FOR 15 MINUTES. THE PATIENT WOULD LIKE TO GO HOME DUE TO AN EXACERBATION OF HER USUAL PAIN, NOT DUE TO THE SCS STIMULATION. I TOLD THE PATIENT TO BRING IN HER PAIN MEDICATIONS NEXT TIME SO THAT SHE CAN BE MORE COMFORTABLE WHILE WE DO THE TESTING. THE PATIENT REPORTS UNDERSTANDING AND AGREES WITH THE PLAN. I, DEZ DHILLON, DOCUMENTED THE ABOVE INFORMATION ACTING A SCRIBE FOR DR. LONGO. I HAVE REVIEWED THE ABOVE DOCUMENT, WRITTEN BY DEZ DHILLON, BODY SHOP MANAGER, AND I VERIFY THAT IT IS ACCURATE. . PROCEDURE CODES FA211 ESTABILISHED PATIENT [facility] CHARGE [id number] OFFICE/OUTPATIENT VISIT EST DISPOSITION & COMMUNICATION FOLLOW UP PATIENT WILL COORDINATE WITH SAM (REASON: TURN ON STIMULATOR WITH SAM) ELECTRONICALLY SIGNED BY TYLER LONGO MD, MD ON 07/31/2020 AT 09:21 AM EDT DISCLAIMER : THIS IS A VISIT SUMMARY EXTRACTED FROM THE [employer] CHART. IT IS NOT A COPY OF THE [employer] PROGRESS NOTE. MTDD
== END ==
LOC: M PAIN 12:30
PROVIDERS: ATTEND Anesthesiology
DX: M96.1 Postlaminectomy syndrome, not elsewhere classified (principal); Z88.0 Allergy status to penicillin; Z88.1 Allergy status to other antibiotic agents; Z88.6 Allergy status to analgesic agent; Z88.8 Allergy status to other drugs, medicaments and biological substances; Z79.891 Long term (current) use of opiate analgesic; Z79.899 Other long term (current) drug therapy

== ENCOUNTER → 2020-08-03 | Outpatient (CLI) | payer MEDICARE, MEDICAID ==
--- NOTE | 2020-08-08 12:30 | ECWPNPC ---
PATIENT NAME: SAEED MCLEOD : 1975 GENDER: FEMALE VISIT DATE: 08/03/2020 DISCHARGE DATE: 08/03/20 1447 VISIT LOCKED DATE TIME: PHYSICIAN: SAWYER CASE PHYSICIAN PAGER NO: ACTIVE RESOURCE: SAWYER CASE REASON FOR APPOINTMENT 1. MED MGMNT/UTOX/F/U AFTER START OF MS CONTIN HISTORY OF PRESENT ILLNESS GENERAL: HERE FOR FOLLOW-UP AND MEDICATION MANAGEMENT FOR CHRONIC LOW BACK PAIN WITH A HISTORY OF POSTLAMINECTOMY PAIN SYNDROME. AT HER LAST VISIT WITH ME IN JUNE WE STARTED LONG-ACTING MORPHINE 15 MG 3 TIMES A DAY. SHE STATES THAT SINCE STARTING THIS SHE'S BEEN ABLE TO TOLERATE AND PARTICIPATE IN ACTIVITIES THAT SHE WASN'T ABLE TO PRIOR TO CHANGING MEDICATION. SHE IS STILL WORKING WITH SAM ADAMS, [employer] AND DR. LONGO IN REGARDS TO DORSAL COLUMN STIMULATOR ISSUES. TODAY SHE IS TELLING ME THAT SHE IS HAVING CONSTANT EVERY DAY MUSCLE PAIN BOTH IN HER UPPER AND LOWER EXTREMITIES. STATES THAT THIS OCCURRED AFTER MRI. SHE WOULD LIKE THIS INVESTIGATED. I WILL HAVE HER DISCUSS THIS WITH DR. LONGO. SHE DOES MENTION TO ME AFTER QUESTIONING THAT SHE WOULD LOVE TO HAVE THE DORSAL COLUMN STIMULATOR REMOVED AND REPLACED WITH A NEW STIMULATOR. STATES SHE IS SCARED OF STIMULATOR THAT'S IN RIGHT NOW. 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 -. FALL RISK SCREENING: SCREENING : NO FALLS REPORTED IN THE LAST YEAR. PAIN SCREENING: PATIENT HAS A COMPLAINT OF ACUTE OR CHRONIC PAIN :YES LOCATION OF PAIN:LOW BACK INTENSITY OF PAIN (SCALE OF 1 TO 10):8 WHAT DOES YOUR PAIN FEEL LIKE:ACHING, BURNING, TENDER, THROBBING DURATION:CONTINOUS, CONSTANT, ALL DAY PAIN IS INCREASED BY:ACTIVITIES PAIN IS DECREASED BY:USE OF PAIN MEDICATIONS NURSING NOTE: -. PAIN CENTER INTAKE QUESTIONS: DO YOU HAVE A HISTORY OF MRSA? :NO DO YOU TAKE A BLOOD THINNERS? :NO DO YOU HAVE ANY BLEEDING DISORDERS? :NO ANY NEW NUMBNESS OR WEAKNESS IN YOUR LEGS OR ARMS? :NO ANY PACEMAKER,DEFIBRILLATOR, OR DORSAL COLUMN STIMULATOR? :YES DCS DO YOU HAVE ANY RASHES OR OPEN SORES? :NO ARE YOU ALLERGIC TO IV DYE? :NO ARE YOU DIABETIC? :NO ANY NEW PROBLEMS WITH YOUR MEDICATIONS? :NO HAVE YOU RECEIVED A VACCINE IN THE PAST 30 DAYS? :NO DO YOU PLAN TO RECEIVE A VACCINE IN THE NEXT 21 DAYS? :NO DO YOU NEED ANY PRESCRIPTION? :NO DO YOU TAKE ANY IMMUNOSUPPRESSIVE MEDICATIONS? :NO IS THERE A CHANCE YOU COULD BE ? :NO ARE YOU BREAST FEEDING? :NO CURRENT MEDICATIONS TAKING PRILOSEC DIRECTED ORALLY IF NEEDED FOR HEARTBURN TAKING ENERGY FOCUS 1 GUMMIE ORALLY TAKES 1 GUMMIE VITAMIN B12 DAILY TAKING NAPROXEN 500 MG TABLET 1 TABLET NEEDED ORALLY EVERY 12 HRS TAKING DRAMAMINE 50 MG TABLET 1 TABLET NEEDED ORALLY EVERY 6 HRS TAKING MORPHINE SULFATE ER 15 MG TABLET EXTENDED RELEASE 1 TABLET ORALLY Q8H TID MDD3 TAKING MORPHINE SULFATE 15 MG TABLET 1 ORALLY FOR PAIN TWICE A DAY IF NEEDED FOR SEVERE PAIN EPISODES MDD 2 NOT-TAKING LIDODERM 5 % PATCH 1 PATCH REMOVE AFTER 12 HOURS EXTERNALLY ONCE A DAY NOT-TAKING LIDOCAINE 4 % GEL DIRECTED EXTERNALLY SMALL AMOUNT TO AFFECTED AREA EVERY 6 HOURS NEEDED NOT-TAKING TIZANIDINE HCL 2 MG TABLET 1 TABLET NEEDED ORALLY BEFORE BEDTIME MAY REPEAT IN 4 HRS MDD2 NOT-TAKING ROPINIROLE HCL 0.25 MG TABLET 1 TO 2 ORALLY BEFORE BEDTIME, NOTES: HASN'T STARTED AND NOT SURE IF SHE IS GOING TO NOT-TAKING CLONIDINE HCL 0.1 MG TABLET 1 TABLET ORALLY Q8H NOT-TAKING CLONIDINE HCL 0.1 MG TABLET 1 TAB ORALLY AM AND PM NOT-TAKING TYLENOL 325 MG TABLET 1 TABLET NEEDED ORALLY EVERY 4 HRS NEEDED MEDICATION LIST REVIEWED AND RECONCILED WITH THE PATIENT PAST MEDICAL HISTORY CHRONIC BACK PAIN EMG SHOWS MILD, CHRONIC L S1 AND POSSIBLY L5 RADICULOPATHY; MILD CHRONIC R L5 RADICULOPATHY (08/2015) DCS ALLERGIES ASPIRIN: SWELLING - ALLERGY GABAPENTIN: "FELT YUCKY" - SIDE EFFECTS LYRICA: FELT YUCKY" - SIDE EFFECTS PENICILLIN (FOR ALLERGIES USE ONLY): SEVERE YEAST INFECTION - SIDE EFFECTS AMOXICILLIN: SEVERE YEAST INFECTION - SIDE EFFECTS SOCIAL HISTORY GENERAL: TOBACCO USE ARE YOU A:CURRENT SMOKER ARE YOU INTERESTED IN QUITTING?THINKING ABOUT QUITTING CUTTING DOWN CURRENTLY, 3 A DAY RIGHT NOW COUNSELED THE PATIENT ON SMOKING CESSATION, EDUCATION [id number]/05/2021 HOW MANY CIGARETTES A DAY DO YOU SMOKE?5 OR LESS HOW SOON AFTER YOU WAKE UP DO YOU SMOKE YOUR FIRST CIGARETTE?AFTER 60 MIN HOW OFTEN DO YOU SMOKE CIGARETTES?EVERY DAY PATIENT COUNSELED ON THE DANGERS OF TOBACCO USE AND URGED TO QUIT:04/15/2020 SMOKING CESSATION INFORMATION GIVEN05/14/2018 LATEX QUESTIONNAIRE LATEX ALLERGY : HAVE YOU EVER DEVELOPED ANY TYPE OF REACTION AFTER HANDLING LATEX PRODUCTS SUCH RUBBER GLOVES, CONDOMS, DIAPHRAGMS, BALLOONS, SOCKS, OR UNDERWEAR?NO LATEX ALLERGY : HAVE YOU EVER DEVELOPED ANY TYPE OF REACTION DURING OR AFTER DENTAL APPOINTMENT, VAGINAL/RECTAL EXAMINATION, SURGICAL PROCEDURE, OR ANY OTHER EXPOSURE?YES - PLEASE INDICATE :VAGINAL EXAM YEAST INFECTION LATEX RISK : HAVE YOU EVER HAD ANY DIFFICULTY BREATHING OR HIVES AFTER EATING OR HANDLING ANY FRUITS, OR VEGETABLES; SUCH KIWI, BANANAS, STONE FRUITS, OR CHESTNUTSNO LATEX RISK : DO YOU HAVE A PREVIOUS PERSONAL HISTORY OF MORE THAN NINE SURGERIES, SPINA BIFIDA, OR REPEATED CATHERIZATIONS? YES - PLEASE INDICATE : > 9 SURGERIES LATEX RISK : ARE YOU FREQUENTLY EXPOSED TO LATEX PRODUCTS IN YOUR OCCUPATION?NO DATE ASKED : 08/03/2020 ALCOHOL USE: NO. ALCOHOL SCREENING DID YOU HAVE A DRINK CONTAINING ALCOHOL IN THE PAST YEAR?NO POINTS0 INTERPRETATIONNEGATIVE RECREATIONAL DRUG USE DRUG USE?NO CAFFEINE CAFFEINE USE?YES HOW OFTEN AND HOW MUCH? 1 CUP COFFEE/DAY SEXUAL HX HAD SEX IN THE LAST 12 MONTHS (VAGINAL, ORAL, OR ANAL)?YES HIV / HEP-C SCREENING HIV TEST OFFERED TO PATIENT:YES DATE OFFERED:12/20/2016 TEST ACCEPTED:YES CATHOLIC [id number] NONE NO EPISCOPAL BELIEFS THAT WOULD IMPACT HEALTH CARE. LANGUAGE LANGUAGES SPOKEN:[place] EDUCATION LEVEL OF EDUCATION:HIGH SCHOOL LEARNING BARRIERS / SPECIAL NEEDS CHANGE FROM LAST VISIT?YES BARRIERS TO LEARNING?NO HEARING IMPAIRED?NO VISION IMPAIRED?YES :CORRECTIVE LENSES COGNITIVELY IMPAIRED?NO READINESS TO LEARN?YES LEARNING PREFERENCES?NO LEARNING CAPABILITIES PRESENT?YES EMOTIONAL BARRIERS?NO SPECIAL DEVICES?NO BAND SEWER NEEDED?NO DOMESTIC VIOLENCE DO YOU FEEL SAFE IN YOUR ENVIRONMENT?YES OCCUPATION: UNEMPLOYED. DIET: REGULAR. EXERCISE: NO REGULAR EXERCISE. MARITAL STATUS: SINGLE. OTHERS AT HOME: CHILDREN. - PFS REFERRAL NEEDED?NO CLERGY REFERRAL NEEDED?NO PUBLIC HEALTH REFERRAL NEEDED?NO HAS THE PATIENT BEEN EDUCATED REGARDING HIS/HER PLAN OF CARE?YES HAS THE PATIENT BEEN EDUCATED REGARDING PAIN, THE RISK FOR PAIN, THE IMPORTANCE OF EFFECTIVE PAIN MANAGEMENT, AND THE PAIN ASSESSMENT PROCESS?YES ADVANCE DIRECTIVE ADVANCE DIRECTIVE DISCUSSED WITH PATIENT:YES 04/15/2020 PT DOES NOT HAVE ANY ADVANCED DIRECTIVES, AND SHE DECLINES INFORMATION ON HCP AT THIS TIME. GAVE QUIT SMOKING INFO 11/17/17. REVIEW OF SYSTEMS CONSTITUTIONAL: ANY RECENT FEVER NO . CHILLS NO . WEIGHT CHANGE OF UNKNOWN REASONS NO . GASTROENTEROLOGY: NEW UNEXPLAINABLE CHANGES IN BOWEL CONTROL NO . CONSTIPATION NO . GENITOURINARY: ANY NEW CHANGE IN BLADDER CONTROL? NO . NEUROLOGY: NEW ONSET DIZZINESS OR NEUROLOGICAL CHANGES NOT MENTIONED NO . NEW NUMBNESS OR PAIN PATTERNS NOT MENTIONED AND PERTINENT TO TODAY'S VISIT NO . CARDIOLOGY: NEW CHEST PRESSURE NO . PATIENT DENIES NO . RESPIRATORY: UNEXPLAINABLE COUGH NO . NEW SHORTNESS OF BREATH NO . VITAL SIGNS WT 122 LBS, HT 64 IN, BMI 20.94 INDEX, BP 121/67 MM HG, HR 75 /MIN, RR 18 /MIN, TEMP 97.6 F, OXYGEN SAT % 97%, SAFE IN ENV? (Y/N) YEST.STARLA PIMENTEL. EXAMINATION GENERAL EXAMINATION: GENERALNO ACUTE DISTRESS, WELL NOURISHED AND HYDRATED. PSYCHAPPROPRIATE MOOD AND AFFECT. LUNGS:CLEAR TO AUSCULTATION BILATERALLY, NO WHEEZES, RHONCHI, RALES. HEART:NO MURMURS, REGULAR RATE AND RHYTHM. MUSCULOSKELETAL: MUSCLE STRENGTH TESTING 5/5 BILATERAL UPPER/LOWER EXTREMITIES. NEUROLOGIC EXAM: NORMAL SENSATION TO LIGHT TOUCH UPPER/LOWER EXTREMITIES. ASSESSMENTS CHRONIC PRESCRIPTION OPIATE USE - Z79.891 (PRIMARY) LUMBAR POST-LAMINECTOMY SYNDROME - M96.1, STATUS POST DCS TRIAL TREATMENT CHRONIC PRESCRIPTION OPIATE USE REFILL MORPHINE SULFATE ER TABLET EXTENDED RELEASE, 15 MG, 1 TABLET, ORALLY, Q8H TID MDD3, 30 DAYS, 90, REFILLS 0 REFILL MORPHINE SULFATE TABLET, 15 MG, 1, ORALLY FOR PAIN, TWICE A DAY IF NEEDED FOR SEVERE PAIN EPISODES MDD 2, 30 DAYS, 60, REFILLS 0 LAB: URINE TEST GROUP 6-ACETYLMORPHINE SCREEN NEGATIVE (10 - NG/ML) BENZODIAZEPINES SCREEN NEGATIVE (200 - NG/ML) AMPHETAMINE SCREEN NEGATIVE (1000 - NG/ML) BARBITURATES SCREEN NEGATIVE (200 - NG/ML) BUPRENORPHINE SCREEN NEGATIVE (5 - NG/ML) COCAINE SCREEN NEGATIVE (300 - NG/ML) CARISOPRODOL SCREEN NEGATIVE (100 - NG/ML) FENTANYL SCREEN NEGATIVE (2 - NG/ML) GABAPENTIN SCREEN NEGATIVE (1000 - NG/ML) METHADONE SCREEN NEGATIVE (300 - NG/ML) OPIATES SCREEN POSITIVE (300 - NG/ML) OXYCODONE SCREEN NEGATIVE (100 - NG/ML) PHENCYCLIDINE SCREEN NEGATIVE (25 - NG/ML) CREATININE 45.3 (>= 20 MG/DL - MG/DL) PH 7 (4.5 - 8.9 - ) CREATININE/SPECIFIC GRAVITY NORMAL (>= 20 MG/DL - ) PH NORMAL (4.5 - 8.9 - ) TCA ANTIDEPRESSANTS SCREEN NEGATIVE (150 - NG/ML) CANNABINOIDS SCREEN NEGATIVE (20 - NG/ML) MDMA SCREEN NEGATIVE (500 - NG/ML) TRAMADOL SCREEN NEGATIVE (100 - NG/ML) MARGY CHA 08/03/2020 2:45:43 PM > LAST DOSE :MORPHINE 08/03/2020 @1PM THIS LAB WAS REVIEWED BY SAWYER BARAJAS ON 08/07/2020 AT 13:17 PM EDT NOTES: ISTOP REGISTRY REVIEWED AND DEMONSTRATES COMPLLIANCE. BRINGS IN MEDICATIONS WHICH IS APPROPRIATE FOR WHAT WAS DISPENSED. RECENT URINE TOXICOLOGY REVIEWED. NO UNAUTHORIZED MEDICATIONS. NO ILLICIT SUBSTANCES AND PRESCRIBED MEDICATIONS WERE PRESENT. , RISKS OF NARCOTIC/OPIOD MEDICATIONS INCLUDES BUT IS NOT LIMITED TO RISK OF DEPENDANCE/DEVELOPMENT OF ADDICTION, MOOD DISTURBANCE AND DEPRESSION, OSTEOPOROSIS, HORMONAL AND LABIDAL CHANGES, RESPIRATORY DEPRESSION AND . PATIENT IS ADVISED NOT TO DRIVE OR DRINK ALCOHOL WHILE ON THESE MEDICATIONS. LABS LAB: OPIATES REFLEX SHS, UR CODEINE NEGATIVE (25 - NG/ML) HYDROCODONE NEGATIVE (25 - NG/ML) HYDROMORPHONE 113 (25 - NG/ML) MORPHINE [id number] (25 - NG/ML) NORHYDROCODONE NEGATIVE (50 - NG/ML) [facility], SUPPORT 08/05/2020 06:05:02 : THIS ORDER WAS CREATED BY THE INTERFACE. THIS LAB WAS REVIEWED BY SAWYER BARAJAS ON 08/07/2020 AT 13:17 PM EDT PROCEDURE CODES FA211 ESTABILISHED PATIENT [facility] CHARGE DISPOSITION & COMMUNICATION FOLLOW UP 3 MONTHS (REASON: MED MGMNT/REVIEW UTOX) ELECTRONICALLY SIGNED BY KARL BARRETT ON 08/07/2020 AT 08:47 AM EDT DISCLAIMER : THIS IS A VISIT SUMMARY EXTRACTED FROM THE [facility] [place] CHART. IT IS NOT A COPY OF THE [facility] [place] PROGRESS NOTE. TIMOTHY
== END ==
LOC: M PAIN 14:00
PROVIDERS: ATTEND Nurse Practitioner Family
DX: M96.1 Postlaminectomy syndrome, not elsewhere classified (principal); F17.210 Nicotine dependence, cigarettes, uncomplicated; Z96.89 Presence of other specified functional implants; Z88.0 Allergy status to penicillin; Z88.1 Allergy status to other antibiotic agents; Z88.6 Allergy status to analgesic agent; Z88.8 Allergy status to other drugs, medicaments and biological substances; Z79.891 Long term (current) use of opiate analgesic; Z79.899 Other long term (current) drug therapy

== ENCOUNTER → 2020-08-19 | Outpatient (CLI) | payer MEDICARE, MEDICAID ==
--- NOTE | 2020-08-24 23:32 | ECWPNPC ---
PATIENT NAME: SAEED MCLEOD : 1975 GENDER: FEMALE VISIT DATE: 08/19/2020 DISCHARGE DATE: 08/19/20 1453 VISIT LOCKED DATE TIME: PHYSICIAN: TYLER LONGO MD PHYSICIAN PAGER NO: ACTIVE RESOURCE: TYLER LONGO MD REASON FOR APPOINTMENT 1. PER DR. LONGO HISTORY OF PRESENT ILLNESS GENERAL: 45-YEAR-OLD FEMALE PATIENT WITH A HISTORY OF CHRONIC BACK AND LEG PAIN. SHE HAS A SPINAL COLUMN STIMULATOR AND AFTER AN MRI, STARTED TO DEVELOP SENSATIONS OVER THE UPPER THORACIC AREA AND THE EXTREMITIES. SHE HAS STARTED TESTING THE USE OF THE STIMULATOR WITH A NONTONIC STIMULATION. SHE HAS A GOAL OF USING THE DEVICE SO THAT SHE DOES NOT HAVE TO RELY ON THE MEDICATIONS TO HELP WITH LOW BACK AND LEG PAIN RELIEF, WHICH AT THE MOMENT, UNFORTUNATELY, SHE CANNOT USE THE DEVICE. FALL RISK SCREENING: SCREENING : NO FALLS REPORTED IN THE LAST YEAR. PAIN SCREENING: PATIENT HAS A COMPLAINT OF ACUTE OR CHRONIC PAIN :YES LOCATION OF PAIN:NECK, LOW BACK, LEFT HIP, RIGHT HIP, LEG(S), OTHER: PELVIS INTENSITY OF PAIN (SCALE OF 1 TO 10):7 WHAT DOES YOUR PAIN FEEL LIKE:CONTINOUS, SHARP DURATION:CONTINOUS PAIN IS INCREASED BY:ACTIVITIES, PROLONGED STANDING, OTHERS SITTING, EVERYTHING MAKES PAIN WORSE PAIN IS DECREASED BY:USE OF PAIN MEDICATIONS PAIN MEDS HELP A LITTLE NURSING NOTE: -. PAIN CENTER INTAKE QUESTIONS: DO YOU HAVE A HISTORY OF MRSA? :NO DO YOU TAKE A BLOOD THINNERS? :NO DO YOU HAVE ANY BLEEDING DISORDERS? :NO ANY NEW NUMBNESS OR WEAKNESS IN YOUR LEGS OR ARMS? :YES ARMS AND LEGS FEEL WEAK, AND PAINFUL ANY PACEMAKER,DEFIBRILLATOR, OR DORSAL COLUMN STIMULATOR? :YES DCS DO YOU HAVE ANY RASHES OR OPEN SORES? :NO ARE YOU ALLERGIC TO IV DYE? :NO ARE YOU DIABETIC? :NO ANY NEW PROBLEMS WITH YOUR MEDICATIONS? :NO HAVE YOU RECEIVED A VACCINE IN THE PAST 30 DAYS? :NO DO YOU PLAN TO RECEIVE A VACCINE IN THE NEXT 21 DAYS? :NO DO YOU NEED ANY PRESCRIPTION? :NO DO YOU TAKE ANY IMMUNOSUPPRESSIVE MEDICATIONS? :NO DO YOU HAVE ANY KIDNEY OR LIVER DISEASE? :NO IS THERE A CHANCE YOU COULD BE ? :NO ARE YOU BREAST FEEDING? :NO CURRENT MEDICATIONS TAKING PRILOSEC DIRECTED ORALLY IF NEEDED FOR HEARTBURN TAKING ENERGY FOCUS 1 GUMMIE ORALLY TAKES 1 GUMMIE VITAMIN B12 DAILY TAKING NAPROXEN 500 MG TABLET 1 TABLET NEEDED ORALLY EVERY 12 HRS TAKING DRAMAMINE 50 MG TABLET 1 TABLET NEEDED ORALLY EVERY 6 HRS TAKING MORPHINE SULFATE ER 15 MG TABLET EXTENDED RELEASE 1 TABLET ORALLY Q8H TID MDD3 TAKING MORPHINE SULFATE 15 MG TABLET 1 ORALLY FOR PAIN TWICE A DAY IF NEEDED FOR SEVERE PAIN EPISODES MDD 2 NOT-TAKING LIDODERM 5 % PATCH 1 PATCH REMOVE AFTER 12 HOURS EXTERNALLY ONCE A DAY NOT-TAKING LIDOCAINE 4 % GEL DIRECTED EXTERNALLY SMALL AMOUNT TO AFFECTED AREA EVERY 6 HOURS NEEDED NOT-TAKING TIZANIDINE HCL 2 MG TABLET 1 TABLET NEEDED ORALLY BEFORE BEDTIME MAY REPEAT IN 4 HRS MDD2 NOT-TAKING ROPINIROLE HCL 0.25 MG TABLET 1 TO 2 ORALLY BEFORE BEDTIME, NOTES: HASN'T STARTED AND NOT SURE IF SHE IS GOING TO NOT-TAKING CLONIDINE HCL 0.1 MG TABLET 1 TABLET ORALLY Q8H NOT-TAKING CLONIDINE HCL 0.1 MG TABLET 1 TAB ORALLY AM AND PM NOT-TAKING TYLENOL 325 MG TABLET 1 TABLET NEEDED ORALLY EVERY 4 HRS NEEDED MEDICATION LIST REVIEWED AND RECONCILED WITH THE PATIENT PAST MEDICAL HISTORY CHRONIC BACK PAIN EMG SHOWS MILD, CHRONIC L S1 AND POSSIBLY L5 RADICULOPATHY; MILD CHRONIC R L5 RADICULOPATHY (08/2015) DCS ALLERGIES ASPIRIN: SWELLING - ALLERGY GABAPENTIN: "FELT YUCKY" - SIDE EFFECTS LYRICA: FELT YUCKY" - SIDE EFFECTS PENICILLIN (FOR ALLERGIES USE ONLY): SEVERE YEAST INFECTION - SIDE EFFECTS AMOXICILLIN: SEVERE YEAST INFECTION - SIDE EFFECTS SOCIAL HISTORY GENERAL: TOBACCO USE ARE YOU A:CURRENT SMOKER ARE YOU INTERESTED IN QUITTING?THINKING ABOUT QUITTING CUTTING DOWN CURRENTLY, 3 A DAY RIGHT NOW COUNSELED THE PATIENT ON SMOKING CESSATION, EDUCATION [id number]/05/2021 HOW MANY CIGARETTES A DAY DO YOU SMOKE?5 OR LESS HOW SOON AFTER YOU WAKE UP DO YOU SMOKE YOUR FIRST CIGARETTE?AFTER 60 MIN HOW OFTEN DO YOU SMOKE CIGARETTES?EVERY DAY PATIENT COUNSELED ON THE DANGERS OF TOBACCO USE AND URGED TO QUIT:08/19/2020 SMOKING CESSATION INFORMATION GIVEN05/14/2018 LATEX QUESTIONNAIRE LATEX ALLERGY : HAVE YOU EVER DEVELOPED ANY TYPE OF REACTION AFTER HANDLING LATEX PRODUCTS SUCH RUBBER GLOVES, CONDOMS, DIAPHRAGMS, BALLOONS, SOCKS, OR UNDERWEAR?NO LATEX ALLERGY : HAVE YOU EVER DEVELOPED ANY TYPE OF REACTION DURING OR AFTER DENTAL APPOINTMENT, VAGINAL/RECTAL EXAMINATION, SURGICAL PROCEDURE, OR ANY OTHER EXPOSURE?YES - PLEASE INDICATE :VAGINAL EXAM YEAST INFECTION LATEX RISK : HAVE YOU EVER HAD ANY DIFFICULTY BREATHING OR HIVES AFTER EATING OR HANDLING ANY FRUITS, OR VEGETABLES; SUCH KIWI, BANANAS, STONE FRUITS, OR CHESTNUTSNO LATEX RISK : DO YOU HAVE A PREVIOUS PERSONAL HISTORY OF MORE THAN NINE SURGERIES, SPINA BIFIDA, OR REPEATED CATHERIZATIONS? YES - PLEASE INDICATE : > 9 SURGERIES LATEX RISK : ARE YOU FREQUENTLY EXPOSED TO LATEX PRODUCTS IN YOUR OCCUPATION?NO DATE ASKED : 08/19/2020 ALCOHOL USE: NO. ALCOHOL SCREENING DID YOU HAVE A DRINK CONTAINING ALCOHOL IN THE PAST YEAR?NO POINTS0 INTERPRETATIONNEGATIVE RECREATIONAL DRUG USE DRUG USE?NO CAFFEINE CAFFEINE USE?YES HOW OFTEN AND HOW MUCH? 1 CUP COFFEE/DAY SEXUAL HX HAD SEX IN THE LAST 12 MONTHS (VAGINAL, ORAL, OR ANAL)?YES HIV / HEP-C SCREENING HIV TEST OFFERED TO PATIENT:YES DATE OFFERED:12/20/2016 TEST ACCEPTED:YES EVANGELICAL [id number] NONE NO ROMAN CATHOLIC BELIEFS THAT WOULD IMPACT HEALTH CARE. LANGUAGE LANGUAGES SPOKEN:CYMRAES EDUCATION LEVEL OF EDUCATION:HIGH SCHOOL LEARNING BARRIERS / SPECIAL NEEDS CHANGE FROM LAST VISIT?NO BARRIERS TO LEARNING?NO HEARING IMPAIRED?NO VISION IMPAIRED?YES :CORRECTIVE LENSES COGNITIVELY IMPAIRED?NO READINESS TO LEARN?YES LEARNING PREFERENCES?NO LEARNING CAPABILITIES PRESENT?YES EMOTIONAL BARRIERS?NO SPECIAL DEVICES?NO INDUSTRIAL YARD BRAKE COUPLER NEEDED?NO DOMESTIC VIOLENCE DO YOU FEEL SAFE IN YOUR ENVIRONMENT?YES OCCUPATION: UNEMPLOYED. DIET: REGULAR. EXERCISE: NO REGULAR EXERCISE. MARITAL STATUS: SINGLE. OTHERS AT HOME: CHILDREN. - PFS REFERRAL NEEDED?NO CLERGY REFERRAL NEEDED?NO PUBLIC HEALTH REFERRAL NEEDED?NO HAS THE PATIENT BEEN EDUCATED REGARDING HIS/HER PLAN OF CARE?YES HAS THE PATIENT BEEN EDUCATED REGARDING PAIN, THE RISK FOR PAIN, THE IMPORTANCE OF EFFECTIVE PAIN MANAGEMENT, AND THE PAIN ASSESSMENT PROCESS?YES ADVANCE DIRECTIVE ADVANCE DIRECTIVE DISCUSSED WITH PATIENT:YES 04/15/2020 PT DOES NOT HAVE ANY ADVANCED DIRECTIVES, AND SHE DECLINES INFORMATION ON HCP AT THIS TIME. GAVE QUIT SMOKING INFO 11/17/17. REVIEW OF SYSTEMS CONSTITUTIONAL: ANY RECENT FEVER NO . CHILLS NO . WEIGHT CHANGE OF UNKNOWN REASONS NO . GASTROENTEROLOGY: NEW UNEXPLAINABLE CHANGES IN BOWEL CONTROL NO . CONSTIPATION NO . GENITOURINARY: ANY NEW CHANGE IN BLADDER CONTROL? NO . NEUROLOGY: NEW ONSET DIZZINESS OR NEUROLOGICAL CHANGES NOT MENTIONED NO . NEW NUMBNESS OR PAIN PATTERNS NOT MENTIONED AND PERTINENT TO TODAY'S VISIT NO . CARDIOLOGY: NEW CHEST PRESSURE NO . PATIENT DENIES NO . RESPIRATORY: UNEXPLAINABLE COUGH NO . NEW SHORTNESS OF BREATH NO . VITAL SIGNS WT 121.6 LBS, HT 64 IN, BMI 20.87 INDEX, BP 129/62 MM HG, HR 78 /MIN, RR 18 /MIN, TEMP 99.6 F, OXYGEN SAT % 98%, SAFE IN ENV? (Y/N) YES, NA INITIALS AW 1357, REVIEWED BY: Anibal BARRERA RN. EXAMINATION GENERAL: THE PATIENT IS ALERT, ORIENTED TIMES THREE AND COOPERATIVE. LUNGS ARE CLEAR TO AUSCULTATION. HEART SHOWS REGULAR RHYTHM, NO MURMURS AND NO GALLOPS. ASSESSMENTS LUMBAR POST-LAMINECTOMY SYNDROME - M96.1 (PRIMARY), STATUS POST DCS TRIAL TREATMENT LUMBAR POST-LAMINECTOMY SYNDROME CLINICAL NOTES: TODAY, THE STIMULATION, WITH THE ASSISTANCE OF SAM ADAMS FROM [email or web address], WAS DONE FOR 20 MINUTES. THE PATIENT ALSO INDICATED THAT SHE RAN IT LAST NIGHT FOR AN UNCERTAIN AMOUNT OF TIME BECAUSE SHE FELL ASLEEP WITH THE TRAIL THAT SHE WAS DOING. THE PATIENT EXPERIENCED SOME PRICKLY SENSATION OVER THE UPPER EXTREMITY BUT IT IS TOLERABLE. WE HAVE AGREED WITH MS. MCLEOD TO CONTINUE TESTING IN A NON-TONIC STIMULATION. THE GOAL WILL BE TO SLOWLY CONTINUE INCREASING THE NON-TONIC STIMULATION. WE WILL NEED A FEW DAYS OF RUNNING AT THIS STAGE TO SEE IF THIS IS HELPING HER OR NOT. WE WILL MAKE FURTHER PLANS FROM THERE. THE PATIENT WILL BE IN CONTACT WITH SAM ADMAS FROM [email or web address]. THE PATIENT WILL FOLLOW UP WITH ME IN 1 MONTH. THE PATIENT REPORTS UNDERSTANDING AND AGREES WITH THE PLAN. I, DEZ DHILLON, DOCUMENTED THE ABOVE INFORMATION ACTING A SCRIBE FOR DR. LONGO. I HAVE REVIEWED THE ABOVE DOCUMENT, WRITTEN BY DEZ DHILLON, LIFT MANAGER, AND I VERIFY THAT IT IS ACCURATE. . PROCEDURE CODES FA211 ESTABILISHED PATIENT [facility] FACILITY CHARGE [id number] OFFICE/OUTPATIENT VISIT EST DISPOSITION & COMMUNICATION FOLLOW UP FOLLOW UP WITH DR. Lovell IN 1-2 MONTHS (REASON: CHECK STATUS OF DCS) ELECTRONICALLY SIGNED BY TYLER LONGO MD, MD ON 08/24/2020 AT 07:36 PM EDT DISCLAIMER : THIS IS A VISIT SUMMARY EXTRACTED FROM THE [employer] CHART. IT IS NOT A COPY OF THE [employer] PROGRESS NOTE. MTDD
== END ==
LOC: M PAIN 13:30
PROVIDERS: ATTEND Anesthesiology
DX: M96.1 Postlaminectomy syndrome, not elsewhere classified (principal); F17.210 Nicotine dependence, cigarettes, uncomplicated; Z96.89 Presence of other specified functional implants; Z88.0 Allergy status to penicillin; Z88.1 Allergy status to other antibiotic agents; Z88.6 Allergy status to analgesic agent; Z88.8 Allergy status to other drugs, medicaments and biological substances; Z79.891 Long term (current) use of opiate analgesic; Z79.899 Other long term (current) drug therapy

== ENCOUNTER → 2020-08-20 | Outpatient (REF) | payer MEDICARE, MEDICAID ==
[2020-08-20 12:29] LABS: APPEARANCE, URINE CLEAR (CLEAR); BACTERIA, URINE AUTO NEGATIVE (NEGATIVE); BILIRUBIN, URINE AUTO NEGATIVE (NEGATIVE); BLOOD, URINE BLOOD 1+ (NEGATIVE); COLOR, URINE AMBER (YELLOW); GLUCOSE, URINE (UA) AUTO NEGATIVE (NEGATIVE); KETONE, URINE AUTO NEGATIVE (NEGATIVE); LEUKOCYTE ESTERASE, URINE AUTO TRACE (NEGATIVE); MUCUS, URINE SMALL (NEGATIVE); NITRITE, URINE AUTO POSITIVE (NEGATIVE); PROTEIN, URINE AUTO NEGATIVE (NEGATIVE); RBC, URINE AUTO 0 /HPF (0-3); SPECIFIC GRAVITY URINE AUTO 1.003 (1.002-1.035); SQUAMOUS EPITHELIAL CELL UR AU 0 /HPF (0-6); UROBILINOGEN, URINE AUTO 0.2 mg/dL (0.0-2.0); WBC, URINE AUTO 6 /HPF (0-3)
== END ==
LOC: M LAB REF 11:44
PROVIDERS: ATTEND Physician Assistant
DX: N39.0 Urinary tract infection, site not specified (principal)

== ENCOUNTER → 2020-11-04 | Outpatient (CLI) | payer MEDICARE, MEDICAID ==
[~2020-11-04] MED LIST changes: +KETO10TAB PO
--- NOTE | 2020-11-06 04:52 | ECWPNPC ---
PATIENT NAME: SAEED MCLEOD : 1975 GENDER: FEMALE VISIT DATE: 11/04/2020 DISCHARGE DATE: 11/04/20 1533 VISIT LOCKED DATE TIME: PHYSICIAN: SAWYER CASE PHYSICIAN PAGER NO: ACTIVE RESOURCE: SAWYER CASE REASON FOR APPOINTMENT 1. MED MGMNT/REVIEW UTOX HISTORY OF PRESENT ILLNESS GENERAL: HERE FOR FOLLOW-UP OF CHRONIC LOW BACK PAIN AND HISTORY OF POSTLAMINECTOMY PAIN SYNDROME. HAS BEEN HAVING SIGNIFICANT PAIN AND PARESTHESIAS AFTER AN MRI SEVERAL MONTHS AGO OF THE LUMBAR AND THORACIC SPINE. CONTINUES TO EXPERIENCE ELECTRICAL SHOCK SENSATIONS IN BOTH ARMS AND LEGS AND FEET. PAIN MEDICATION HELPS SOMEWHAT AND HAS IMPROVED HER SLEEP. SHE IS UNABLE TO USE DORSAL COLUMN STIMULATOR. SHE IS IN TEARS TODAY. STATES SHE SAW A NEUROLOGIST PER OUR REFERRAL AND WAS VERY DISAPPOINTED. HE STATED THAT THERE WAS NO WAY THAT THE DORSAL COLUMN STIMULATOR/MRI COULD CAUSE HER PAIN AND PARATHESIAS SHE HAS BEEN COMPLAINING OF. SHE IS VERY DISCOURAGED BECAUSE SHE WAS OFF OF HER PAIN MEDICATIONS FOR SEVERAL YEARS AFTER DORSAL COLUMN STIMULATOR WAS PLACED AND "HAD HER LIFE BACK". HAS APPOINTMENT COMING UP TO DISCUSS TREATMENT PLAN WITH DR. LONGO. -. FALL RISK SCREENING: SCREENING : NO FALLS REPORTED IN THE LAST YEAR. PAIN SCREENING: PATIENT HAS A COMPLAINT OF ACUTE OR CHRONIC PAIN :YES LOCATION OF PAIN:LOW BACK, LEG(S) INTENSITY OF PAIN (SCALE OF 1 TO 10):8 WHAT DOES YOUR PAIN FEEL LIKE:OTHER FIND IN HARD TO EXPLAIN DURATION:CONTINOUS, CONSTANT, ALL DAY PAIN IS INCREASED BY:ACTIVITIES, PROLONGED STANDING PAIN IS DECREASED BY:USE OF PAIN MEDICATIONS, SITTING, OTHERS HEAT NURSING NOTE: -. PAIN CENTER INTAKE QUESTIONS: DO YOU HAVE A HISTORY OF MRSA? :NO DO YOU TAKE A BLOOD THINNERS? :NO DO YOU HAVE ANY BLEEDING DISORDERS? :NO ANY NEW NUMBNESS OR WEAKNESS IN YOUR LEGS OR ARMS? :NO ANY PACEMAKER,DEFIBRILLATOR, OR DORSAL COLUMN STIMULATOR? :YES DCS DO YOU HAVE ANY RASHES OR OPEN SORES? :NO ARE YOU ALLERGIC TO IV DYE? :NO ARE YOU DIABETIC? :NO ANY NEW PROBLEMS WITH YOUR MEDICATIONS? :NO HAVE YOU RECEIVED A VACCINE IN THE PAST 30 DAYS? :NO DO YOU PLAN TO RECEIVE A VACCINE IN THE NEXT 21 DAYS? :NO DO YOU NEED ANY PRESCRIPTION? :NO DO YOU TAKE ANY IMMUNOSUPPRESSIVE MEDICATIONS? :NO IS THERE A CHANCE YOU COULD BE ? :NO ARE YOU BREAST FEEDING? :NO CURRENT MEDICATIONS TAKING PRILOSEC DIRECTED ORALLY IF NEEDED FOR HEARTBURN TAKING ENERGY FOCUS 1 GUMMIE ORALLY TAKES 1 GUMMIE VITAMIN B12 DAILY TAKING NAPROXEN 500 MG TABLET 1 TABLET NEEDED ORALLY EVERY 12 HRS TAKING DRAMAMINE 50 MG TABLET 1 TABLET NEEDED ORALLY EVERY 6 HRS TAKING MORPHINE SULFATE ER 15 MG TABLET EXTENDED RELEASE 1 TABLET ORALLY Q8H TID MDD3 TAKING MORPHINE SULFATE 15 MG TABLET 1 ORALLY FOR PAIN TWICE A DAY IF NEEDED FOR SEVERE PAIN EPISODES MDD 2 NOT-TAKING LIDODERM 5 % PATCH 1 PATCH REMOVE AFTER 12 HOURS EXTERNALLY ONCE A DAY NOT-TAKING LIDOCAINE 4 % GEL DIRECTED EXTERNALLY SMALL AMOUNT TO AFFECTED AREA EVERY 6 HOURS NEEDED NOT-TAKING TIZANIDINE HCL 2 MG TABLET 1 TABLET NEEDED ORALLY BEFORE BEDTIME MAY REPEAT IN 4 HRS MDD2 NOT-TAKING ROPINIROLE HCL 0.25 MG TABLET 1 TO 2 ORALLY BEFORE BEDTIME, NOTES: HASN'T STARTED AND NOT SURE IF SHE IS GOING TO NOT-TAKING CLONIDINE HCL 0.1 MG TABLET 1 TABLET ORALLY Q8H NOT-TAKING CLONIDINE HCL 0.1 MG TABLET 1 TAB ORALLY AM AND PM NOT-TAKING TYLENOL 325 MG TABLET 1 TABLET NEEDED ORALLY EVERY 4 HRS NEEDED MEDICATION LIST REVIEWED AND RECONCILED WITH THE PATIENT PAST MEDICAL HISTORY CHRONIC BACK PAIN EMG SHOWS MILD, CHRONIC L S1 AND POSSIBLY L5 RADICULOPATHY; MILD CHRONIC R L5 RADICULOPATHY (08/2015) DCS LEGS PAIN ALLERGIES ASPIRIN: SWELLING - ALLERGY GABAPENTIN: "FELT YUCKY" - SIDE EFFECTS LYRICA: FELT YUCKY" - SIDE EFFECTS PENICILLIN (FOR ALLERGIES USE ONLY): SEVERE YEAST INFECTION - SIDE EFFECTS AMOXICILLIN: SEVERE YEAST INFECTION - SIDE EFFECTS SURGICAL HISTORY LAMINECTOMY 1998 BACK SURGERY AGAIN 1998 DIAGNOSTIC LAPARASCOPY WITH ENDOMETRIOSIS ABLATION (NANDA) 2003 (?) DCS 06/26/17 PERMANENT DCS PLACEMENT 07/2017 PNEUMOTHORAX X 4 (MOST RECENT 1996) DORSAL COLUM STIMULATOR 2017 SOCIAL HISTORY GENERAL: TOBACCO USE ARE YOU A:CURRENT SMOKER ARE YOU INTERESTED IN QUITTING?THINKING ABOUT QUITTING CUTTING DOWN CURRENTLY, 3 A DAY RIGHT NOW COUNSELED THE PATIENT ON SMOKING CESSATION, EDUCATION [id number]/07/2021 HOW MANY CIGARETTES A DAY DO YOU SMOKE?5 OR LESS HOW SOON AFTER YOU WAKE UP DO YOU SMOKE YOUR FIRST CIGARETTE?AFTER 60 MIN HOW OFTEN DO YOU SMOKE CIGARETTES?EVERY DAY PATIENT COUNSELED ON THE DANGERS OF TOBACCO USE AND URGED TO QUIT:08/19/2020 SMOKING CESSATION INFORMATION GIVEN05/14/2018 LATEX QUESTIONNAIRE LATEX ALLERGY : HAVE YOU EVER DEVELOPED ANY TYPE OF REACTION AFTER HANDLING LATEX PRODUCTS SUCH RUBBER GLOVES, CONDOMS, DIAPHRAGMS, BALLOONS, SOCKS, OR UNDERWEAR?NO LATEX ALLERGY : HAVE YOU EVER DEVELOPED ANY TYPE OF REACTION DURING OR AFTER DENTAL APPOINTMENT, VAGINAL/RECTAL EXAMINATION, SURGICAL PROCEDURE, OR ANY OTHER EXPOSURE?YES - PLEASE INDICATE :VAGINAL EXAM YEAST INFECTION LATEX RISK : HAVE YOU EVER HAD ANY DIFFICULTY BREATHING OR HIVES AFTER EATING OR HANDLING ANY FRUITS, OR VEGETABLES; SUCH KIWI, BANANAS, STONE FRUITS, OR CHESTNUTSNO LATEX RISK : DO YOU HAVE A PREVIOUS PERSONAL HISTORY OF MORE THAN NINE SURGERIES, SPINA BIFIDA, OR REPEATED CATHERIZATIONS? YES - PLEASE INDICATE : > 9 SURGERIES LATEX RISK : ARE YOU FREQUENTLY EXPOSED TO LATEX PRODUCTS IN YOUR OCCUPATION?NO DATE ASKED : 11/04/2020 ALCOHOL USE: NO. ALCOHOL SCREENING DID YOU HAVE A DRINK CONTAINING ALCOHOL IN THE PAST YEAR?NO POINTS0 INTERPRETATIONNEGATIVE RECREATIONAL DRUG USE DRUG USE?NO CAFFEINE CAFFEINE USE?YES HOW OFTEN AND HOW MUCH? 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 LANGUAGE LANGUAGES SPOKEN:IRISH EDUCATION LEVEL OF EDUCATION:HIGH SCHOOL LEARNING BARRIERS / SPECIAL NEEDS CHANGE FROM LAST VISIT?NO BARRIERS TO LEARNING?NO HEARING IMPAIRED?NO VISION IMPAIRED?YES :CORRECTIVE LENSES COGNITIVELY IMPAIRED?NO READINESS TO LEARN?YES LEARNING PREFERENCES?NO LEARNING CAPABILITIES PRESENT?YES EMOTIONAL BARRIERS?NO SPECIAL DEVICES?NO FOOD TASTER NEEDED?NO DOMESTIC VIOLENCE DO YOU FEEL SAFE IN YOUR ENVIRONMENT?YES OCCUPATION: UNEMPLOYED. DIET: REGULAR. EXERCISE: NO REGULAR EXERCISE. MARITAL STATUS: SINGLE. OTHERS AT HOME: CHILDREN. - PFS REFERRAL NEEDED?NO CLERGY REFERRAL NEEDED?NO PUBLIC HEALTH REFERRAL NEEDED?NO HAS THE PATIENT BEEN EDUCATED REGARDING HIS/HER PLAN OF CARE?YES HAS THE PATIENT BEEN EDUCATED REGARDING PAIN, THE RISK FOR PAIN, THE IMPORTANCE OF EFFECTIVE PAIN MANAGEMENT, AND THE PAIN ASSESSMENT PROCESS?YES ADVANCE DIRECTIVE ADVANCE DIRECTIVE DISCUSSED WITH PATIENT:YES 04/15/2020 PT DOES NOT HAVE ANY ADVANCED DIRECTIVES, AND SHE DECLINES INFORMATION ON HCP AT THIS TIME. GAVE QUIT SMOKING INFO 11/17/17. HOSPITALIZATION/MAJOR DIAGNOSTIC PROCEDURE SURGERIES PNEUMOTHORAX MRI- WENT TO ER HAD A ISSUE WITH HER DORSAL COLUM STIMULATOR [employer] HEATED UP AND BURNED HER MUSCLES FROM THE INSIDE SHE WAS SENT TO THE ER AFTERWORDS, 1ST MRI WITH THE DORSAL COLUM STIMULATOR 02/13/2020 REVIEW OF SYSTEMS CONSTITUTIONAL: ANY RECENT FEVER NO . CHILLS NO . WEIGHT CHANGE OF UNKNOWN REASONS NO . GASTROENTEROLOGY: NEW UNEXPLAINABLE CHANGES IN BOWEL CONTROL NO . CONSTIPATION NO . GENITOURINARY: ANY NEW CHANGE IN BLADDER CONTROL? NO . NEUROLOGY: NEW ONSET DIZZINESS OR NEUROLOGICAL CHANGES NOT MENTIONED NO . NEW NUMBNESS OR PAIN PATTERNS NOT MENTIONED AND PERTINENT TO TODAY'S VISIT NO . CARDIOLOGY: NEW CHEST PRESSURE NO . PATIENT DENIES NO . RESPIRATORY: UNEXPLAINABLE COUGH NO . NEW SHORTNESS OF BREATH NO . VITAL SIGNS WT 124 LBS, HT 64 IN, BMI 21.28 INDEX, BP 124/62 MM HG, HR 64 /MIN, RR 18 /MIN, OXYGEN SAT % 100%, SAFE IN ENV? (Y/N) YEST.STARLA PIMENTEL. EXAMINATION GENERAL EXAMINATION: GENERALAWAKE,ALERT ,PLEASANT . PSYCHAFFECT NORMAL . LUNGS:LUNG KAMARA ARE CLEAR TO AUSCULTATION BILATERALLY. GOOD MOVEMENT OF AIR . HEART:S1, S2 IN A REGULAR RATE AND RHYTHM. NO SIGNIFICANT MURMURS, RUBS OR GALLOPS NOTED . ASSESSMENTS POSTLAMINECTOMY SYNDROME, NOT ELSEWHERE CLASSIFIED - M96.1 (PRIMARY) TREATMENT POSTLAMINECTOMY SYNDROME, NOT ELSEWHERE CLASSIFIED REFILL MORPHINE SULFATE ER TABLET EXTENDED RELEASE, 15 MG, 1 TABLET, ORALLY, Q8H TID MDD3, 30 DAYS, 90, REFILLS 0 REFILL MORPHINE SULFATE TABLET, 15 MG, 1, ORALLY FOR PAIN, TWICE A DAY IF NEEDED FOR SEVERE PAIN EPISODES MDD 2, 30 DAYS, 60, REFILLS 0 NOTES: CONTINUE CURRENT CHRONIC PAIN MEDICATIONS. PATIENT WILL TALK TO DR. LONGO AT FOLLOW-UP IN 1 WEEK. SHE WOULD LIKE TO DISCUSS POSSIBILITY OF TALKING TO ANOTHER NEUROLOGIST VERSUS HAVING DORSAL COLUMN STIMULATOR REMOVED. PROCEDURE CODES FA211 ESTABILISHED PATIENT [facility] CHARGE DISPOSITION & COMMUNICATION FOLLOW UP 2 MONTHS W ANGELA HSU (REASON: MED MGMNT) ELECTRONICALLY SIGNED BY KARL BARRETT ON 11/05/2020 AT 01:13 PM EDT DISCLAIMER : THIS IS A VISIT SUMMARY EXTRACTED FROM THE [employer] CHART. IT IS NOT A COPY OF THE [employer] PROGRESS NOTE. TIMOTHY
== END ==
LOC: M PAIN 14:15
PROVIDERS: ATTEND Nurse Practitioner Family
DX: M96.1 Postlaminectomy syndrome, not elsewhere classified (principal); F17.210 Nicotine dependence, cigarettes, uncomplicated; Z96.89 Presence of other specified functional implants; Z88.0 Allergy status to penicillin; Z88.1 Allergy status to other antibiotic agents; Z88.6 Allergy status to analgesic agent; Z88.8 Allergy status to other drugs, medicaments and biological substances; Z79.891 Long term (current) use of opiate analgesic; Z79.899 Other long term (current) drug therapy

== ENCOUNTER 2020-11-06 16:41 | Emergency (ER) | payer MEDICARE, MEDICAID ==
[~2020-11-06] VITALS: Ht 162.6 cm; Wt 56.9 kg
[~2020-11-06 16:41] MED LIST changes: -KETO10TAB PO
[2020-11-06 16:42] VITALS: BP 123/67
[2020-11-06 17:16] LABS: BASO % 0.5 % (0.0-1.0); EOS # 0.1 10^3/uL (0.0-0.5); EOS % 1.1 % (0.0-3.0); HEMATOCRIT 42.7 % (36.0-47.0); HEMOGLOBIN 14.5 g/dl (12.0-15.5); LYMPH # 2.1 10^3/uL (1.5-5.0); LYMPH % 25.6 % (24.0-44.0); MEAN CORPUSCULAR HEMOGLOBIN 32.7 pg (27.0-33.0); MEAN CORPUSCULAR VOLUME 96.2 fl (80.0-96.0); MONO # 0.7 10^3/uL (0.0-0.8); MONO % 8.2 % (2.0-8.0); NEUTROPHILS # 5.4 10^3/uL (1.5-8.5); NEUTROPHILS % 64.4 % (36.0-66.0); PLATELET COUNT, AUTOMATED 291 10^3/uL (150-450); RED BLOOD COUNT 4.44 10^6/uL (4.00-5.40); WHITE BLOOD COUNT 8.3 10^3/uL (4.0-10.0)
--- NOTE | 2020-11-06 17:20 | ECGEPIP ---
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
--- NOTE | 2020-11-06 17:24 | REP ---
INDICATION: CHEST PAIN COMPARISON: 10/23/2019 TECHNIQUE: Portable AP view of the chest FINDINGS: The mediastinum and cardiac silhouette are stable and within normal limits for portable technique. The lung avelar are clear without acute consolidation, effusion, or pneumothorax. Skeletal structures are intact. Epidural stimulator at the midthoracic level. IMPRESSION: No acute cardiopulmonary process appreciated. <Electronically signed by Waylon Carey > 11/06/20 0045
[2020-11-06 17:49] LABS: ALBUMIN 3.6 GM/DL (3.2-5.2); ALT/SGPT 25 U/L (12-78); BILIRUBIN,DIRECT 0.1 MG/DL (0.0-0.2); BILIRUBIN,TOTAL 0.4 MG/DL (0.2-1.0); BLOOD UREA NITROGEN 9 MG/DL (7-18); CALCIUM LEVEL 8.7 MG/DL (8.5-10.1); CARBON DIOXIDE LEVEL 31 MEQ/L (21-32); CHLORIDE LEVEL 105 MEQ/L (98-107); CK-MB VALUE MASS < 1.0 NG/ML (<3.6); CPK CREATINE PHOSPHOKINASE 89 U/L (26-192); CREATININE FOR GFR 0.59 MG/DL (0.55-1.30); FREE T4 1.04 NG/DL (0.76-1.46); GLOMERULAR FILTRATION RATE > 60.0 (>58); GLUCOSE, FASTING 81 MG/DL (70-100); LIPASE 73 U/L (73-393); MB/CK RELATIVE INDEX 1.12 (< OR =4); NT-PRO BNP 174 PG/ML (<125); POTASSIUM SERUM 4.3 MEQ/L (3.5-5.1); SODIUM LEVEL 140 MEQ/L (136-145); TROPONIN I < 0.02 NG/ML (< 0.10)
[2020-11-06] MEDS ORDERED: MORP15TA2 PO (21:45)
[2020-11-06] MEDS ORDERED: MORP-69 PO (21:45)
[2020-11-07] MEDS ORDERED: KETO10TAB PO (00:16)
== END 2020-11-06 18:45 | disposition home or self-care (01) ==
LOC: M ED 16:41
DX: Z53.21 Procedure and treatment not carried out due to patient leaving prior to being seen by health care provider (principal)

== ENCOUNTER 2020-11-06 21:37 | Emergency (ER) | payer MEDICARE, MEDICAID ==
[~2020-11-06] VITALS: Ht 162.6 cm; Wt 56.6 kg
[2020-11-06] MEDS ORDERED: MORP-69 PO (21:45)
[2020-11-06] MEDS ORDERED: MORP15TA2 PO (21:45)
[2020-11-06] MEDS ORDERED: GI COCKTAIL 50ML BTL(HYOSCYAMINE/MAALOX/LIDOCAINE VISCOUS)(1:3:1) PO ONE (22:15)
[2020-11-06] MEDS ORDERED: KETOROLAC 30 MG/ML 1ML VIAL IV ONE (23:15)
[2020-11-07] MEDS ORDERED: KETO10TAB PO (00:16)
[2020-11-07 00:33] VITALS: BP 141/63
== END 2020-11-07 00:35 | disposition home or self-care (01) ==
LOC: M ED 21:37
DX: R07.89 Other chest pain (principal); Z88.0 Allergy status to penicillin; Z88.8 Allergy status to other drugs, medicaments and biological substances

== ENCOUNTER → 2020-12-04 | Outpatient (CLI) | payer MEDICARE, MEDICAID ==
[~2020-12-04] MED LIST changes: +KETO10TAB PO
--- NOTE | 2020-12-12 05:29 | ECWPNPC ---
PATIENT NAME: SAEED MCLEOD : 1975 GENDER: FEMALE VISIT DATE: 12/04/2020 DISCHARGE DATE: 12/04/20901 VISIT LOCKED DATE TIME: PHYSICIAN: TYLER LONGO MD PHYSICIAN PAGER NO: ACTIVE RESOURCE: TYLER LONGO MD REASON FOR APPOINTMENT 1. MED MGMT HISTORY OF PRESENT ILLNESS GENERAL: 45-YEAR-OLD FEMALE PATIENT WITH A HISTORY OF CHRONIC LOW BACK AND LEG PAIN. THE PATIENT DESCRIBES THE PAIN ACHING, BURNING AND CONTINUOUS WITH A PAIN SCORE RANGING FROM 7-10/10. SHE HAS A STIMULATOR AND AFTER AN MRI SHE STARTED TO DEVELOPED DYSESTHESIA OVER HER THORACIC AND UPPER EXTREMITIES. SHE STOPPED USING THE STIMULATOR. WE HAVE BEEN HAVING HER SLOWLY INCREASING THE USE OF THE STIMULATOR ON THE NON TONIC STIMULATION AND WE HAVE BEEN INCREASING IT. SHE HAS BEEN USING IT FOR 12 HOURS A DAY WHILE SHE SLEEPS WITH NO OTHER SYMPTOMS. THIS IS NOT HELPING HER BACK AND LEG PAIN. SHE IS USING MORPHINE TO HELP WITH THE PAIN BUT THE PAIN PERSISTS. FALL RISK SCREENING: SCREENING : NO FALLS REPORTED IN THE LAST YEAR. PAIN SCREENING: PATIENT HAS A COMPLAINT OF ACUTE OR CHRONIC PAIN :YES LOCATION OF PAIN:NECK, UPPER BACK, MID BACK, LOW BACK, HAND(S), LEG(S), FEET, OTHER: ARMS INTENSITY OF PAIN (SCALE OF 1 TO 10):7 WHAT DOES YOUR PAIN FEEL LIKE:ACHING, BURNING, CONTINOUS DURATION:CONTINOUS, CONSTANT PAIN IS INCREASED BY:ACTIVITIES PAIN IS DECREASED BY:USE OF PAIN MEDICATIONS JUST TAKES THE EDGE OFF, HEAT, HOT SHOWER NURSING NOTE: -. PAIN CENTER INTAKE QUESTIONS: DO YOU HAVE A HISTORY OF MRSA? :NO DO YOU TAKE A BLOOD THINNERS? :NO DO YOU HAVE ANY BLEEDING DISORDERS? :NO ANY NEW NUMBNESS OR WEAKNESS IN YOUR LEGS OR ARMS? :YES NEW AND INCREASED NUMBNESS AND WEAKNESS IN MUSCKES AND ARMS, LEGS AND FEET ANY PACEMAKER,DEFIBRILLATOR, OR DORSAL COLUMN STIMULATOR? :YES DCS DO YOU HAVE ANY RASHES OR OPEN SORES? :NO ARE YOU ALLERGIC TO IV DYE? :NO ARE YOU DIABETIC? :NO ANY NEW PROBLEMS WITH YOUR MEDICATIONS? :NO HAVE YOU RECEIVED A VACCINE IN THE PAST 30 DAYS? :NO DO YOU PLAN TO RECEIVE A VACCINE IN THE NEXT 21 DAYS? :NO DO YOU NEED ANY PRESCRIPTION? :YES MORPHINE ER AND MORPHINE IR DO YOU TAKE ANY IMMUNOSUPPRESSIVE MEDICATIONS? :NO DO YOU HAVE ANY KIDNEY OR LIVER DISEASE? :NO IS THERE A CHANCE YOU COULD BE ? :NO ARE YOU BREAST FEEDING? :NO CURRENT MEDICATIONS TAKING PRILOSEC DIRECTED ORALLY IF NEEDED FOR HEARTBURN TAKING ENERGY FOCUS 1 GUMMIE ORALLY TAKES 1 GUMMIE VITAMIN B12 DAILY TAKING NAPROXEN 500 MG TABLET 1 TABLET NEEDED ORALLY EVERY 12 HRS TAKING DRAMAMINE 50 MG TABLET 1 TABLET NEEDED ORALLY EVERY 6 HRS TAKING MORPHINE SULFATE ER 15 MG TABLET EXTENDED RELEASE 1 TABLET ORALLY Q8H TID MDD3 TAKING MORPHINE SULFATE 15 MG TABLET 1 ORALLY FOR PAIN TWICE A DAY IF NEEDED FOR SEVERE PAIN EPISODES MDD 2 NOT-TAKING LIDODERM 5 % PATCH 1 PATCH REMOVE AFTER 12 HOURS EXTERNALLY ONCE A DAY NOT-TAKING LIDOCAINE 4 % GEL DIRECTED EXTERNALLY SMALL AMOUNT TO AFFECTED AREA EVERY 6 HOURS NEEDED NOT-TAKING TIZANIDINE HCL 2 MG TABLET 1 TABLET NEEDED ORALLY BEFORE BEDTIME MAY REPEAT IN 4 HRS MDD2 NOT-TAKING ROPINIROLE HCL 0.25 MG TABLET 1 TO 2 ORALLY BEFORE BEDTIME, NOTES: HASN'T STARTED AND NOT SURE IF SHE IS GOING TO NOT-TAKING CLONIDINE HCL 0.1 MG TABLET 1 TABLET ORALLY Q8H NOT-TAKING CLONIDINE HCL 0.1 MG TABLET 1 TAB ORALLY AM AND PM NOT-TAKING TYLENOL 325 MG TABLET 1 TABLET NEEDED ORALLY EVERY 4 HRS NEEDED PAST MEDICAL HISTORY CHRONIC BACK PAIN EMG SHOWS MILD, CHRONIC L S1 AND POSSIBLY L5 RADICULOPATHY; MILD CHRONIC R L5 RADICULOPATHY (08/2015) DCS LEGS PAIN ALLERGIES ASPIRIN: SWELLING - ALLERGY GABAPENTIN: "FELT YUCKY" - SIDE EFFECTS LYRICA: FELT YUCKY" - SIDE EFFECTS PENICILLIN (FOR ALLERGIES USE ONLY): SEVERE YEAST INFECTION - SIDE EFFECTS AMOXICILLIN: SEVERE YEAST INFECTION - SIDE EFFECTS SOCIAL HISTORY GENERAL: TOBACCO USE ARE YOU A:CURRENT SMOKER ARE YOU INTERESTED IN QUITTING?THINKING ABOUT QUITTING CUTTING DOWN CURRENTLY, 3 A DAY RIGHT NOW COUNSELED THE PATIENT ON SMOKING CESSATION, EDUCATION [id number]/2021 HOW MANY CIGARETTES A DAY DO YOU SMOKE?5 OR LESS HOW SOON AFTER YOU WAKE UP DO YOU SMOKE YOUR FIRST CIGARETTE?AFTER 60 MIN HOW OFTEN DO YOU SMOKE CIGARETTES?EVERY DAY PATIENT COUNSELED ON THE DANGERS OF TOBACCO USE AND URGED TO QUIT:12/04/2020 SMOKING CESSATION INFORMATION GIVEN05/14/2018 LATEX QUESTIONNAIRE LATEX ALLERGY : HAVE YOU EVER DEVELOPED ANY TYPE OF REACTION AFTER HANDLING LATEX PRODUCTS SUCH RUBBER GLOVES, CONDOMS, DIAPHRAGMS, BALLOONS, SOCKS, OR UNDERWEAR?NO LATEX ALLERGY : HAVE YOU EVER DEVELOPED ANY TYPE OF REACTION DURING OR AFTER DENTAL APPOINTMENT, VAGINAL/RECTAL EXAMINATION, SURGICAL PROCEDURE, OR ANY OTHER EXPOSURE?YES - PLEASE INDICATE :VAGINAL EXAM YEAST INFECTION LATEX RISK : HAVE YOU EVER HAD ANY DIFFICULTY BREATHING OR HIVES AFTER EATING OR HANDLING ANY FRUITS, OR VEGETABLES; SUCH KIWI, BANANAS, STONE FRUITS, OR CHESTNUTSNO LATEX RISK : DO YOU HAVE A PREVIOUS PERSONAL HISTORY OF MORE THAN NINE SURGERIES, SPINA BIFIDA, OR REPEATED CATHERIZATIONS? YES - PLEASE INDICATE : > 9 SURGERIES LATEX RISK : ARE YOU FREQUENTLY EXPOSED TO LATEX PRODUCTS IN YOUR OCCUPATION?NO DATE ASKED : 12/04/2020 ALCOHOL USE: NO. ALCOHOL SCREENING DID YOU HAVE A DRINK CONTAINING ALCOHOL IN THE PAST YEAR?NO POINTS0 INTERPRETATIONNEGATIVE RECREATIONAL DRUG USE DRUG USE?NO CAFFEINE CAFFEINE USE?YES HOW OFTEN AND HOW MUCH? 1 CUP COFFEE/DAY SEXUAL HX HAD SEX IN THE LAST 12 MONTHS (VAGINAL, ORAL, OR ANAL)?YES HIV / HEP-C SCREENING HIV TEST OFFERED TO PATIENT:YES DATE OFFERED:12/20/2016 TEST ACCEPTED:YES WORSHIP [id number] NONE NO EPISCOPAL BELIEFS THAT WOULD IMPACT HEALTH CARE. LANGUAGE LANGUAGES SPOKEN:ALBANIAN EDUCATION LEVEL OF EDUCATION:HIGH SCHOOL LEARNING BARRIERS / SPECIAL NEEDS CHANGE FROM LAST VISIT?NO BARRIERS TO LEARNING?NO HEARING IMPAIRED?NO VISION IMPAIRED?YES :CORRECTIVE LENSES COGNITIVELY IMPAIRED?NO READINESS TO LEARN?YES LEARNING PREFERENCES?NO LEARNING CAPABILITIES PRESENT?YES EMOTIONAL BARRIERS?NO SPECIAL DEVICES?NO SENIOR INFRASTRUCTURE ARCHITECT NEEDED?NO DOMESTIC VIOLENCE DO YOU FEEL SAFE IN YOUR ENVIRONMENT?YES OCCUPATION: UNEMPLOYED. DIET: REGULAR. EXERCISE: NO REGULAR EXERCISE. MARITAL STATUS: SINGLE. OTHERS AT HOME: CHILDREN. - PFS REFERRAL NEEDED?NO CLERGY REFERRAL NEEDED?NO PUBLIC HEALTH REFERRAL NEEDED?NO HAS THE PATIENT BEEN EDUCATED REGARDING HIS/HER PLAN OF CARE?YES HAS THE PATIENT BEEN EDUCATED REGARDING PAIN, THE RISK FOR PAIN, THE IMPORTANCE OF EFFECTIVE PAIN MANAGEMENT, AND THE PAIN ASSESSMENT PROCESS?YES ADVANCE DIRECTIVE ADVANCE DIRECTIVE DISCUSSED WITH PATIENT:YES 04/15/2020 PT DOES NOT HAVE ANY ADVANCED DIRECTIVES, AND SHE DECLINES INFORMATION ON HCP AT THIS TIME. GAVE QUIT SMOKING INFO 11/17/17. REVIEW OF SYSTEMS CONSTITUTIONAL: ANY RECENT FEVER NO . CHILLS NO . WEIGHT CHANGE OF UNKNOWN REASONS NO . GASTROENTEROLOGY: NEW UNEXPLAINABLE CHANGES IN BOWEL CONTROL NO . CONSTIPATION NO . GENITOURINARY: ANY NEW CHANGE IN BLADDER CONTROL? NO . NEUROLOGY: NEW ONSET DIZZINESS OR NEUROLOGICAL CHANGES NOT MENTIONED NO . NEW NUMBNESS OR PAIN PATTERNS NOT MENTIONED AND PERTINENT TO TODAY'S VISIT NO . CARDIOLOGY: NEW CHEST PRESSURE NO . PATIENT DENIES NO . RESPIRATORY: UNEXPLAINABLE COUGH NO . NEW SHORTNESS OF BREATH NO . VITAL SIGNS WT 122.6 LBS, WT-KG 55.61 KG, HT 64 IN, BMI 21.04 INDEX, BP 139/79 MM HG, REPEAT BP 110/72 MANUAL, HR 83 /MIN, RR 18 /MIN, TEMP 98.1 F, OXYGEN SAT % 99%, SAFE IN ENV? (Y/N) YES, NA INITIALS MO 14:51, REVIEWED BY: Anibal BARRERA RN. EXAMINATION GENERAL EXAMINATION: THE PATIENT IS ALERT, ORIENTED TIMES THREE AND COOPERATIVE. LUNGS ARE CLEAR TO AUSCULTATION. HEART SHOWS REGULAR RHYTHM, NO MURMURS AND NO GALLOPS. I ASKED SAEED TO WALK AND SHE WALKS WITH NORMAL GAIT BUT THEN SHE ASKED ME TO SIT AND I ASKED HER WHY. SHE IS EXPLAINING THAT SHE HAS SHARP PAINS AT THE BOTTOM OF HER FEET. SHE STATES ITS 8-10/10 PAIN. SHE ALSO SAY THAT SHE HAS A SEVERE PAIN IN HER UPPER EXTREMITIES. ASSESSMENTS LUMBAR POST-LAMINECTOMY SYNDROME - M96.1 (PRIMARY) NEURALGIA OF UPPER EXTREMITY - M79.2, STATUS POST SPINAL COLUMN STIMULATOR, STATUS POST MRI NEURALGIA OF LOWER EXTREMITY - M79.2, STATUS POST SPINAL COLUMN STIMULATOR, STATUS POST MRI MULTIPLE BODY PAIN. TREATMENT LUMBAR POST-LAMINECTOMY SYNDROME CONTINUE MORPHINE SULFATE ER TABLET EXTENDED RELEASE, 15 MG, 1 TABLET, ORALLY, Q8H TID MDD3, 30 DAYS, 90, REFILLS 0 CONTINUE MORPHINE SULFATE TABLET, 15 MG, 1, ORALLY FOR PAIN, TWICE A DAY IF NEEDED FOR SEVERE PAIN EPISODES MDD 2, 30 DAYS, 60, REFILLS 0 CLINICAL NOTES: I DISCUSSED ALTERNATIVES WITH MS. MCLEOD. I WANT HER TO START USING THE NON TONIC STIMULATION CONSTANTLY. WE WILL CONTINUE WITH THE MEDICATION MANAGEMENT. I WILL RESEND HER TO DR. BLANCO'S OFFICE FOR A NEUROLOGICAL EVALUATION. I WILL FOLLOW UP WITH HER AGAIN IN 2 WEEKS TO SEE HOW SHE IS DOING. I WANT TO TALK TO SAM ABOUT WHAT PROGRAM SHE USES. THE PATIENT REPORTS UNDERSTANDING AND AGREES WITH THE PLAN. I, DEZ DHILLON, DOCUMENTED THE ABOVE INFORMATION ACTING A SCRIBE FOR DR. LONGO. I HAVE REVIEWED THE ABOVE DOCUMENT, WRITTEN BY DEZ DHILLON, TEXTILE BROKER, AND I VERIFY THAT IT IS ACCURATE. [facility]AL [facility] REASON:PATIENT HAVING NEW PAIN AND WEAKNESS STATUS POST MRI WITH SPINAL COLUMN STIMULATOR VISIT CODES PROCEDURE CODES FA211 ESTABILISHED PATIENT [facility] [id number] OFFICE/OUTPATIENT VISIT EST DISPOSITION & COMMUNICATION FOLLOW UP 2 WEEKS. (SCHEDULED) (REASON: REEVALUATE STIMULATOR STATUS) ELECTRONICALLY SIGNED BY TYLER LONGO MD, MD ON 12/11/2020 AT 01:41 PM EDT DISCLAIMER : THIS IS A VISIT SUMMARY EXTRACTED FROM THE [facility] CHART. IT IS NOT A COPY OF THE [facility] PROGRESS NOTE. TIMOTHY
== END ==
LOC: M PAIN 14:30
PROVIDERS: ATTEND Anesthesiology
DX: M96.1 Postlaminectomy syndrome, not elsewhere classified (principal); M79.2 Neuralgia and neuritis, unspecified; F17.210 Nicotine dependence, cigarettes, uncomplicated; Z96.89 Presence of other specified functional implants; Z88.0 Allergy status to penicillin; Z88.1 Allergy status to other antibiotic agents; Z88.6 Allergy status to analgesic agent; Z88.8 Allergy status to other drugs, medicaments and biological substances; Z79.891 Long term (current) use of opiate analgesic; Z79.899 Other long term (current) drug therapy

== ENCOUNTER → 2020-12-18 | Outpatient (CLI) | payer MEDICARE | LOC: M PAIN 12:45 | PROVIDERS: ATTEND Anesthesiology | DX: M96.1 Postlaminectomy syndrome, not elsewhere classified (principal); M79.2 Neuralgia and neuritis, unspecified; F17.210 Nicotine dependence, cigarettes, uncomplicated; Z96.89 Presence of other specified functional implants; Z88.0 Allergy status to penicillin; Z88.1 Allergy status to other antibiotic agents; Z88.6 Allergy status to analgesic agent; Z88.8 Allergy status to other drugs, medicaments and biological substances; Z79.891 Long term (current) use of opiate analgesic; Z79.899 Other long term (current) drug therapy ==

== ENCOUNTER → 2021-01-05 | Outpatient (CLI) | payer MEDICARE | LOC: M PAIN 15:15 | PROVIDERS: ATTEND Anesthesiology | DX: M96.1 Postlaminectomy syndrome, not elsewhere classified (principal); F17.210 Nicotine dependence, cigarettes, uncomplicated; Z79.891 Long term (current) use of opiate analgesic; Z79.899 Other long term (current) drug therapy; Z88.6 Allergy status to analgesic agent; Z88.8 Allergy status to other drugs, medicaments and biological substances; Z88.0 Allergy status to penicillin ==

== ENCOUNTER → 2021-02-25 | Outpatient (CLI) | payer MEDICARE ==
[~2021-02-25] MED LIST changes: +DRAM1CHW PO; +VITMTA PO
== END ==
LOC: M PAIN 14:45
PROVIDERS: ATTEND Anesthesiology
DX: M96.1 Postlaminectomy syndrome, not elsewhere classified (principal); T85.192D Other mechanical complication of implanted electronic neurostimulator of spinal cord electrode (lead), subsequent encounter; F17.210 Nicotine dependence, cigarettes, uncomplicated; Z96.89 Presence of other specified functional implants; Z88.0 Allergy status to penicillin; Z88.1 Allergy status to other antibiotic agents; Z88.6 Allergy status to analgesic agent; Z88.8 Allergy status to other drugs, medicaments and biological substances; Z79.891 Long term (current) use of opiate analgesic; Z79.899 Other long term (current) drug therapy

== ENCOUNTER → 2021-03-03 | Outpatient (CLI) | payer MEDICARE ==
[2021-03-03 13:46] LABS: BASO # 0.1 10^3/uL (0.0-0.2); BASO % 0.9 % (0.0-1.0); EOS # 0.1 10^3/uL (0.0-0.5); EOS % 1.1 % (0.0-3.0); HEMATOCRIT 44.3 % (36.0-47.0); HEMOGLOBIN 14.8 g/dl (12.0-15.5); LYMPH # 1.6 10^3/uL (1.5-5.0); LYMPH % 29.6 % (24.0-44.0); MEAN CORPUSCULAR HEMOGLOBIN 32.1 pg (27.0-33.0); MEAN CORPUSCULAR HGB CONC 33.4 g/dl (32.0-36.5); MEAN CORPUSCULAR VOLUME 96.1 fl (80.0-96.0); MONO # 0.4 10^3/uL (0.0-0.8); NEUTROPHILS # 3.3 10^3/uL (1.5-8.5); NEUTROPHILS % 60.4 % (36.0-66.0); PLATELET COUNT, AUTOMATED 299 10^3/uL (150-450); RED BLOOD COUNT 4.61 10^6/uL (4.00-5.40); WHITE BLOOD COUNT 5.4 10^3/uL (4.0-10.0)
[2021-03-03 14:22] LABS: ALBUMIN 3.8 GM/DL (3.2-5.2); ALT/SGPT 25 U/L (12-78); BILIRUBIN,TOTAL 0.4 MG/DL (0.2-1.0); BLOOD UREA NITROGEN 16 MG/DL (7-18); CALCIUM LEVEL 9.3 MG/DL (8.5-10.1); CARBON DIOXIDE LEVEL 30 MEQ/L (21-32); CHLORIDE LEVEL 104 MEQ/L (98-107); CREATININE FOR GFR 0.81 MG/DL (0.55-1.30); FOLATE > 24.0 NG/ML; GLOMERULAR FILTRATION RATE > 60.0 (>58); GLUCOSE, FASTING 81 MG/DL (70-100); POTASSIUM SERUM 3.6 MEQ/L (3.5-5.1); RHEUMATOID FACTOR QUANT < 10.0 IU/ML (<15.0); SODIUM LEVEL 138 MEQ/L (136-145); TOTAL PROTEIN 7.5 GM/DL (6.4-8.2); VITAMIN B12 LEVEL 686 PG/ML
[2021-03-03 14:27] LABS: HEMOGLOBIN A1c 5.1 %
[2021-03-03 14:50] LABS: ERYTHROCYTE SEDIMENTATION RATE 20 mm/hr (0-20)
[2021-03-04 13:43] LABS: ALBUMIN 4.38 GM/DL (3.29-5.55); ALBUMIN % 58.4 % (55.8-66.1); ALPHA-1-GLOBULIN % 4.3 % (2.9-4.9); ALPHA-1-GLOBULINS 0.32 GM/DL (0.17-0.41); ALPHA-2-GLOBULINS 0.77 GM/DL (0.42-0.99); ALPHA-2-GLOBULINS % 10.2 % (7.1-11.8); BETA-1-GLOBULINS 0.39 GM/DL (0.28-0.60); BETA-1-GLOBULINS % 5.2 % (4.7-7.2); BETA-2-GLOBULINS 0.38 GM/DL (0.19-0.55); GAMMA GLOBULIN % 16.9 % (11.1-18.8); GAMMA GLOBULINS 1.27 GM/DL (0.65-1.58)
== END ==
LOC: M PLALAB 10:23
PROVIDERS: ATTEND Physician Assistant Medical
DX: G62.9 Polyneuropathy, unspecified (principal); M79.18 Myalgia, other site

== ENCOUNTER → 2021-03-10 | Outpatient (CLI) | payer MEDICARE | LOC: M LABSMTC 10:21 | PROVIDERS: ATTEND Anesthesiology | DX: Z01.812 Encounter for preprocedural laboratory examination (principal); Z20.822 Contact with and (suspected) exposure to COVID-19 ==

== ENCOUNTER 2021-03-15 09:59 | Day surgery (SDC) | payer MEDICARE ==
[~2021-03-15] VITALS: Ht 162.6 cm; Wt 56.2 kg
[~2021-03-15 09:59] MED LIST changes: +CLINDAMYCIN 900 MG in IV 1 EA IV ONE; +LR 1,000 ML IV ONE
--- OUTSIDE RECORDS SUMMARY | 2021-03-15 10:07 | CCD | Continuity of Care Document ---
Author Author Charmaine EDWARDS P.A.-C. Organization Unknown Address [address] [place] [address] Phone [phone] Care Team Providers Care Physical Medicine Physician Name Role Phone Marvin Talbot M.D. [facility] [phone] Stephanie Gamboa DO [facility] [phone] Problems Active Problems Provider Date Hand pain Laura Cordoba M.D. Onset: 02/05/2021 Numbness of hand Laura Cordoba M.D. Onset: 02/05/2021 Carpal tunnel syndrome Lauar Cordoba M.D. Onset: 02/05/2021 Social History Type Date Description Comments Sex Unknown Allergies and adverse reactions Description No Information Available Medications Active Medications SIG Qnty Indications Ordering Provide r Date Tylenol 8 Hour 650mg Tablets ER Laura Cordoba M.D. 02/05/2021 Immunizations Description No Information Available Vital Signs Date Vital Result Comment 02/26/2021 6:41am BP Systolic 122 mmHg BP Diastolic 78 mmHg Heart Rate 84 /min Respiratory Rate 16 /min Results Test Acquired Date Facility Test Result H/L Range Note Hemoglobin A1c 03/03/2021 [facility] Hemoglobin A1c 5.1 % Normal 1 Estimated Average Glucose 100 mg/dL Normal 60-110 CBC With Differential 03/03/2021 [facility] White Blood Count 5.4 10 Normal 4.0-10.0 Red Blood Count 4.61 10 Normal 4.00-5.40 Hemoglobin 14.8 g/dL Normal 12.0-15.5 Hematocrit 44.3 % Normal 36.0-47.0 Mean Corpuscular Volume 96.1 fl High 80.0-96.0 Mean Corpuscular Hemoglobin 32.1 pg Normal 27.0-33.0 Mean Corpuscular HGB Conc 33.4 g/dL Normal 32.0-36.5 Red Cell Distribution Width 11.9 % Normal 11.5-14.5 Platelet Count, Automated 299 10 Normal 150-450 Neutrophils % 60.4 % Normal 36.0-66.0 Lymph % 29.6 % Normal 24.0-44.0 [place] % 8.0 % Normal 2.0-8.0 Eos % 1.1 % Normal 0.0-3.0 Baso % 0.9 % Normal 0.0-1.0 Immature Granulocyte % 0.0 % Normal 0-3.0 Nucleated Red Blood Cell % 0.0 % Normal 0-0 Neutrophils # 3.3 10 Normal 1.5-8.5 Lymph # 1.6 10 Normal 1.5-5.0 [place] # 0.4 10 Normal 0.0-0.8 Eos # 0.1 10 Normal 0.0-0.5 Baso # 0.1 10 Normal 0.0-0.2 Laboratory test finding 03/03/2021 [facility] Erythrocyte Sedimentation Rate 20 mm/hr Normal 0-20 Comprehensive Metabolic Profil 03/03/2021 [facility] Glucose, Fasting 81 mg/dL Normal 70-100 Blood Urea Nitrogen 16 mg/dL Normal 7-18 Creatinine For GFR 0.81 mg/dL Normal 0.55-1.30 Glomerular Filtration Rate > 60.0 Normal >58 2 Sodium Level 138 mEq/L Normal 136-145 Potassium Serum 3.6 mEq/L Normal 3.5-5.1 Chloride Level 104 mEq/L Normal 98-107 Carbon Dioxide Level 30 mEq/L Normal 21-32 Anion Gap 4 mEq/L Low 8-16 Calcium Level 9.3 mg/dL Normal 8.5-10.1 Ast/Sgot 17 U/L Normal 7-37 Alt/SGPT 25 U/L Normal 12-78 Alkaline Phosphatase 90 U/L Normal 45-117 Bilirubin,Total 0.4 mg/dL Normal 0.2-1.0 Total Protein 7.5 GM/DL Normal 6.4-8.2 Albumin 3.8 GM/DL Normal 3.2-5.2 Albumin/Globulin Ratio 1.0 Low 1.2-2.2 Serum Protein Electrophoresis 03/03/2021 [facility] Albumin % 58.4 % Normal 55.8-66.1 Dlimn-1-Avyismqt % 4.3 % Normal 2.9-4.9 Dyxlu-3-Nwvxkbzvf % 10.2 % Normal 7.1-11.8 Nvrz-0-Jucrqyvhb % 5.2 % Normal 4.7-7.2 Wlsa-5-Imixfwtvd % 5.0 % Normal 3.2-6.5 Gamma Globulin % 16.9 % Normal 11.1-18.8 Albumin 4.38 GM/DL Normal 3.29-5.55 Bwcbr-8-Jjkndqhjb 0.32 GM/DL Normal 0.17-0.41 Evfmy-8-Msarpsdhp 0.77 GM/DL Normal 0.42-0.99 Orzr-5-Hjkwmrovh 0.39 GM/DL Normal 0.28-0.60 Mzjg-6-Vhezejecg 0.38 GM/DL Normal 0.19-0.55 Gamma Globulins 1.27 GM/DL Normal 0.65-1.58 Total Protein 7.5 GM/DL Normal 6.4-8.2 Spep Interpretation SEE COMMENT Normal 3 [facility] Pathologist Review REV'D BY Jones PITTS Normal Vitamin B12 & Folate 03/03/2021 [facility] Vitamin B12 Level 686 pg/mL Normal 4 Folate > 24.0 NG/ML Normal 5 Laboratory test finding 03/03/2021 [facility] Syphilis NONREACTIVE Normal Nonreactive 6 Rheumatoid Factor Quant < 10.0 IU/mL Normal <15.0 7 1 REFERENCE RANGES: <=5.6% NORMAL 5.7-6.4% SUGGESTS IMPAIRED GLUCOSE META BOLISM/PREDIABETIC >= 6.5% ABNORMAL 2 Units are mL/min/1.73 m2 Chronic Kidney Disease Staging per NKF: Stage I & II GFR >=60 Normal to Mildly Decreased Stage III GFR 30-59 Moderately Decreased Stage IV GFR 15-29 Severely Decreased Stage V GFR <15 Very Little GFR Left ESRD GFR <15 on MANUFACTURING ADVISOR 3 NO M-SPIKE(S)NOTED. 4 VITAMIN B12 NORMAL RANGE NORMAL 247 - 911 PG/ML INDETERMINATE 211 - 246 PG/ML DEFICIENT LESS THAN 211 PG/ML 5 FOLATE NORMAL RANGE NORMAL GREATER THAN 5.4 NG/ML INDETERMINATE 3.4-5.4 NG/ML DEFICIENT LESS THAN 3.4 NG/ML 6 note:<nlbl:demographic_chang ed> 7 note:<nlbl:demographic_chang ed> Procedures Date Code Description Status 02/26/2021 03358 Office/Outpatient Established Mo d MDM 30-39 Min Completed 02/09/2021 23583 Nerve Conduction 13+ Studies Com pleted 02/09/2021 83650 Needle Electromyogra phy Non Extremity Done With Nerve Conduction Completed 02/09/2021 66681 Needle Electromyogra phy Non Extremity Done With Nerve Conduction Completed 02/09/2021 74665 Needle Electromyography Complete , Five Or More Muscles Studied Completed 02/09/2021 19731 Needle Electromyography Complete , Five Or More Muscles Studied Completed 02/04/2021 72030 Nerve Conduction 13+ Studies Com pleted 02/04/2021 91705 Needle Electromyography Complete , Five Or More Muscles Studied Completed 02/04/2021 15485 Needle Electromyography Complete , Five Or More Muscles Studied Completed 01/26/2021 93272 Office/Outpatient New Moderate M DM 45-59 Minutes Completed Medical Devices Description No Information Available Encounters Type Date Location Provider Dx Diagnosis Office Visit 02/26/2021 10:30a Main office - [place] Kaur salgado P.A.-C. M54.2 Cervicalgia M54.12 Radiculopathy, cervical rogelio on M54.50 Low back pain, unspecified R20.2 Paresthesia of skin Office Visit 01/26/2021 10:45a Main office - [place] Jessica Cordoba M.D. M79.609 Pain in unspecified limb M47.892 Other spondylosis, cervical region M62.9 Disorder of muscle, unspecif ied Assessments Date Code Description Provider 02/26/2021 M54.2 Cervicalgia Kaur Edwards P.A.-C. 02/26/2021 M54.12 Radiculopathy, cervical region L sb Edwards P.A.-C. 02/26/2021 M54.50 Low back pain, unspecified Kaur Edwards P.A.-C. 02/26/2021 R20.2 Paresthesia of skin Amado Randolph.A.-C. 02/09/2021 G56.00 Carpal tunnel syndrome, unspecif ied upper limb Laura Adalid, M.D. 02/09/2021 M54.12 Radiculopathy, cervical region A bdul Adalid, M.D. 02/09/2021 M54.2 Cervicalgia Laura Adalid, M.D . 02/09/2021 R20.2 Paresthesia of skin Laura Adalid, M.D. 02/09/2021 M25.519 Pain in unspecified shoulder Abd ul Adalid, M.D. 02/04/2021 M54.59 Other low back pain Laura Adalid, M.D. 02/04/2021 M54.16 Radiculopathy, lumbar region Abd ul Adalid, M.D. 02/04/2021 R20.2 Paresthesia of skin Laura Adalid, M.D. 02/04/2021 G43.901 Migraine, unspecifie d, not intractable, with status migrainosus Laura Adalid, M.D. 01/26/2021 M79.609 Pain in unspecified limb Jessica Adalid, M.D. 01/26/2021 M47.892 Other spondylosis, cervical rogelio on Jessica Adalid, M.D. 01/26/2021 M62.9 Disorder of muscle, unspecified Jessica Adalid, M.D. Plan of Treatment Future Appointment(s):* 04/28/2021 1:00 pm - Kaur Edwards P.A.-C. at [facility] 02/26/2021 - Kaur Edwards P.A.-C.* M54.2 Cervicalgia* Comments:* Follow up at the pain clinic. * M54.12 Radiculopathy, cervical region* Comments:* Left C6-7 radiculopathy on EMG. Follow up at the pain clinic. * M54.50 Low back pain, unspecified* Comments:* Follow up at the pain clinic. * R20.2 Paresthesia of skin* Comments:* EMG of the lower extremities was normal. She has had severe symptoms since having an MRI on February 13, 2020 related to her dorsal column stimulator. She will have it removed in March. Labs pending. * Follow up:* 2 months. Functional Status Description No Information Available Mental Status Description No Information Available Referrals Description No Information Available
--- OUTSIDE RECORDS SUMMARY | 2021-03-15 10:07 | CCD | Continuity of Care Document ---
Author Author Charmaine EDWARDS P.A.-C. Organization Unknown Address [address] [place] [address] Phone [phone] Care Team Providers Care Work Measurement Engineer Name Role Phone Marvin Talbot M.D. AUTM [phone] Stephanie Gamboa DO AUTM [phone] Problems Active Problems Provider Date Hand pain Laura Cordoba M.D. Onset: 02/05/2021 Numbness of hand Laura Cordoba M.D. Onset: 02/05/2021 Carpal tunnel syndrome Laura Cordoba M.D. Onset: 02/05/2021 Social History Type [...] Result H/L Range Note Hemoglobin A1c 03/03/2021 [facility] Hemoglobin A1c 5.1 % Normal 1 Estimated Average Glucose 100 mg/dL Normal 60-110 CBC With Differential 03/03/2021 [facility] White Blood Count 5.4 10 Normal 4.0-10.0 [...] 36.0-66.0 Lymph % 29.6 % Normal 24.0-44.0 [place] % 8.0 % Normal 2.0-8.0 Eos % 1.1 % Normal 0.0-3.0 Baso % 0.9 % Normal 0.0-1.0 Immature Granulocyte % 0.0 % Normal 0-3.0 Nucleated Red Blood Cell % 0.0 % Normal 0-0 Neutrophils # 3.3 10 Normal 1.5-8.5 Lymph # 1.6 10 Normal 1.5-5.0 [place] # 0.4 10 Normal 0.0-0.8 Eos # 0.1 10 Normal 0.0-0.5 Baso # 0.1 10 Normal 0.0-0.2 Laboratory test finding 03/03/2021 [facility] Erythrocyte Sedimentation Rate 20 mm/hr Normal 0-20 Comprehensive Metabolic Profil 03/03/2021 [facility] Glucose, Fasting 81 mg/dL Normal 70-100 Blood [...] 1.0 Low 1.2-2.2 Serum Protein Electrophoresis 03/03/2021 [facility] Albumin % 58.4 % Normal 55.8-66.1 Eqirp-3-Xyzhmgut % 4.3 % Normal 2.9-4.9 Yafvw-9-Bhiinleao % 10.2 % Normal 7.1-11.8 Yopa-7-Hryjizgqx % 5.2 % Normal 4.7-7.2 Vicg-2-Qcmcesyrt % 5.0 % Normal 3.2-6.5 Gamma Globulin % 16.9 % Normal 11.1-18.8 Albumin 4.38 GM/DL Normal 3.29-5.55 Ztskq-9-Itgqrsmau 0.32 GM/DL Normal 0.17-0.41 Apkeu-8-Wlmxlmjzq 0.77 GM/DL Normal 0.42-0.99 Mmjv-9-Ojashawpw 0.39 GM/DL Normal 0.28-0.60 Nlku-8-Mdlozrnya 0.38 GM/DL Normal 0.19-0.55 Gamma Globulins 1.27 GM/DL Normal 0.65-1.58 Total Protein 7.5 GM/DL Normal 6.4-8.2 Spep Interpretation SEE COMMENT Normal 3 Spep Pathologist Review REV'D BY [facility]TS Normal Vitamin B12 & Folate 03/03/2021 [facility] Vitamin B12 Level 686 pg/mL Normal 4 Folate > 24.0 NG/ML Normal 5 Laboratory test finding 03/03/2021 [facility] Syphilis NONREACTIVE Normal Nonreactive 6 Rheumatoid Factor Quant < 10.0 IU/mL Normal <15.0 7 Vitamin E Level 03/03/2021 [facility] Vitamin E(Alpha Tocopherol) 13.3 mg/L Normal 7.0-25.1 8 Vitamin E(Gamma Tocopherol) 0.7 mg/L Normal 0.5-5.5 9 Laboratory test finding 03/03/2021 [facility] Vitamin B1 Level Whole Blood 138.8 nmol/L Normal 66.5-200.0 10 Vitamin B6,Pyridoxal Phosphate 31.7 ug/L Normal 2.0-32.8 11 Antinuclear Antibodies 03/03/2021 [facility] Antinuclear Antibodies Direct Positive Abnormal Negative Anti Double Strand-Dna AB 2 IU/mL Normal 0-9 12 MYCOLOGY TEACHER Antibodies 1.7 AI High 0.0-0.9 Friedman Antibodies <0.2 AI Normal 0.0-0.9 Sjogren's Anti SS-A <0.2 AI Normal 0.0-0.9 Sjogren's Anti SS-B <0.2 AI Normal 0.0-0.9 Dominick Comment (SEE NOTE) Normal . 13 1 REFERENCE RANGES: <=5.6% NORMAL 5.7-6.4% SUGGESTS IMPAIRED GLUCOSE META BOLISM/PREDIABETIC >= 6.5% ABNORMAL 2 Units are mL/min/1.73 m2 Chronic Kidney Disease Staging per NKF: Stage I & II GFR >=60 Normal to Mildly Decreased Stage III GFR 30-59 Moderately Decreased Stage IV GFR 15-29 Severely Decreased Stage V GFR <15 Very Little GFR Left ESRD GFR <15 on BRICK UNLOADER TENDER 3 NO M-SPIKE(S)NOTED. 4 VITAMIN B12 NORMAL RANGE NORMAL 247 - 911 PG/ML INDETERMINATE 211 - 246 PG/ML DEFICIENT LESS THAN 211 PG/ML 5 FOLATE NORMAL RANGE NORMAL GREATER THAN 5.4 NG/ML INDETERMINATE 3.4-5.4 NG/ML DEFICIENT LESS THAN 3.4 NG/ML 6 note:<nlbl:demographic_chang ed> 7 note:<nlbl:demographic_chang ed> 8 This test was developed and its performance characteristics determined by [employer]. It has not been cleared or approved by the Food and Drug Administration. 9 This test was developed and its performance characteristics determined by [facility]. It has not been cleared or approved by the Food and Drug Administration. Reference intervals for alpha and gamma-tocopherol determined from National Health and Nutrition Examination Survey, 2618-0295. Individuals with alpha-tocopherol levels less than 5.0 mg/L are considered vitamin E deficient. 10 This test was developed and its performance characteristics determined by [employer]. It has not been cleared or approved by the Food and Drug Administration. 11 This test was developed and its performance characteristics determined by [facility]. It has not been cleared or approved by the Food and Drug Administration. 12 Negative <5 Equivocal 5 - 9 Positive >9 13 . Autoantibody Disease Association Condition Frequency -------- --------- Antinuclear Antibody, SLE, mixed connective Direct (DOMINICK-D) tissue diseases -------- --------- dsDNA SLE 40 - 60% -------- --------- Chromatin Drug induced SLE 90% SLE 48 - 97% -------- --------- SSA (Ro) SLE 25 - 35% Sjogren's Syndrome 40 - 70% Lupus 100% -------- --------- SSB (La) SLE 10% Sjogren's Syndrome 30% ------- --------- Sm (anti-Friedman) SLE 15 - 30% ------- --------- MYCOLOGY TEACHER Mixed Connective Tissue Disease 95% (U1 nRNP, SLE 30 - 50% anti-ribonucleoprotein) Polymyositis and/or Dermatomyositis 20% -------- --------- Scl-70 (antiDNA Scleroderma (diffuse) 20 - 35% topoisomerase) Crest 13% -------- --------- Lisa-1 Polymyositis and/or Dermatomyositis 20 - 40% -------- --------- Centromere B Scleroderma - Crest variant 80% Performed at: [facility] [employer] [id number] Senior Trial Attorney: Selina Ya MD, Phone: [phone] Performed at: [facility] [id number] Senior Trial Attorney: Araceli Jauregui MD, Phone: [phone] Procedures Date Code Description Status 02/26/2021 61388 Office/Outpatient Established Mo d MDM 30-39 Min Completed 02/09/2021 71064 Nerve Conduction 13+ Studies Com pleted 02/09/2021 58969 Needle Electromyogra phy Non Extremity Done With Nerve Conduction Completed 02/09/202118257 Needle Electromyogra phy Non Extremity Done With Nerve Conduction Completed 02/09/2021 92606 Needle Electromyography Complete , Five Or More Muscles Studied Completed 02/09/202118850 Needle Electromyography Complete , Five Or More Muscles Studied Completed 02/04/2021 33882 Nerve Conduction 13+ Studies Com pleted 02/04/202145910 Needle Electromyography Complete , Five Or More Muscles Studied Completed 02/04/2021 40822 Needle Electromyography Complete , Five Or More Muscles Studied Completed 01/26/2021 35759 Office/Outpatient New Moderate M DM 45-59 Minutes Completed Medical Devices Description No Information Available Encounters Type Date Location Provider Dx Diagnosis Office Visit 02/26/2021 10:30a [place] Graham[place].-[place]. M54.2 Cervicalgia M54.12 Radiculopathy, cervical rogelio on M54.50 Low back pain, unspecified R20.2 Paresthesia of skin Office Visit 01/26/2021 10:45a Main office - [place] Jessica Cordoba M.D. M79.609 Pain in unspecified limb M47.892 Other spondylosis, cervical region M62.9 Disorder of muscle, unspecif ied Assessments Date Code Description Provider 02/26/2021 M54.2 Cervicalgia Kaur Edwards P.A.-C. 02/26/2021 M54.12 Radiculopathy, cervical region L sb Ilan Edwards P.A.-C. 02/26/2021 M54.50 Low back pain, unspecified Kaur Edwards P.A.-C. 02/26/2021 R20.2 Paresthesia of skin Kaur salgado P.A.-C. 02/09/2021 G56.00 Carpal tunnel syndrome, unspecif ied [...] not intractable, with status migrainosus Laura Adalid, M.DElayne 01/26/2021 M79.609 Pain in unspecified limb Jessica Adalid, M.DElayne 01/26/2021 M47.892 Other spondylosis, cervical rogelio on Jessica Adalid, NavD. 01/26/2021 M62.9 Disorder of muscle, unspecified Jessica Cordoba M.D. Plan of Treatment Future Appointment(s):* 04/28/2021 1:00 pm - Kaur Edwards P.A.-C. at Main office [facility] 02/26/2021 - Kaur Edwards P.A.-C.* M54.2 Cervicalgia* [...]
--- OUTSIDE RECORDS SUMMARY | 2021-03-15 10:07 | CCD | Continuity of Care Document ---
Author Author Charmaine EDWARDS P.A.-C. Organization Unknown Address [address] [place] [address] Phone [phone] Care Team Providers Care Manager Gas Name Role Phone Marvin Talbot M.D. AUTM [phone] Stephanie Gamboa DO AUTM [phone] Problems Active Problems Provider Date Hand pain [...] Result H/L Range Note Hemoglobin A1c 03/03/2021 [facility] Hemoglobin A1c 5.1 % Normal 1 Estimated Average Glucose 100 mg/dL Normal 60-110 CBC With Differential 03/03/2021 [facility] White Blood Count 5.4 10 Normal 4.0-10.0 [...] 36.0-66.0 Lymph % 29.6 % Normal 24.0-44.0 [place] % 8.0 % Normal 2.0-8.0 Eos % 1.1 % Normal 0.0-3.0 Baso % 0.9 % Normal 0.0-1.0 Immature Granulocyte % 0.0 % Normal 0-3.0 Nucleated Red Blood Cell % 0.0 % Normal 0-0 Neutrophils # 3.3 10 Normal 1.5-8.5 Lymph # 1.6 10 Normal 1.5-5.0 [place] # 0.4 10 Normal 0.0-0.8 Eos # 0.1 10 Normal 0.0-0.5 Baso # 0.1 10 Normal 0.0-0.2 Laboratory test finding 03/03/2021 [facility] Erythrocyte Sedimentation Rate 20 mm/hr Normal 0-20 1 REFERENCE RANGES: <=5.6% NORMAL 5.7-6.4% SUGGESTS IMPAIRED GLUCOSE META BOLISM/PREDIABETIC >= 6.5% ABNORMAL Procedures Date Code Description Status 02/26/2021 85989 Office/Outpatient Established Mo d MDM 30-39 Min Completed 02/09/2021 08905 Nerve Conduction 13+ Studies Com pleted 02/09/2021 78810 Needle Electromyogra phy Non Extremity Done With Nerve Conduction Completed 02/09/2021 40225 Needle Electromyogra phy Non Extremity Done With Nerve Conduction Completed 02/09/2021 03740 Needle Electromyography Complete , Five Or More Muscles Studied Completed 02/09/2021 04998 Needle Electromyography Complete , Five Or More Muscles Studied Completed 02/04/2021 77328 Nerve Conduction 13+ Studies Com pleted 02/04/2021 73358 Needle Electromyography Complete , Five Or More Muscles Studied Completed 02/04/2021 29040 Needle Electromyography Complete , Five Or More Muscles Studied Completed 01/26/2021 36304 Office/Outpatient New Moderate M DM 45-59 Minutes Completed Medical Devices Description No Information Available Encounters Type Date Location Provider Dx Diagnosis Office Visit 02/26/2021 10:30a Main office [place] Randolph.A.-C. M54.2 Cervicalgia M54.12 Radiculopathy, cervical rogelio on M54.50 Low back pain, unspecified R20.2 Paresthesia of skin Office Visit 01/26/2021 10:45a Main office [place] Jessica Clarita Cordoba M79.609 Pain in unspecified limb M47.892 Other [...] 01/26/2021 M79.609 Pain in unspecified limb Jessica Cordoba M.D. 01/26/2021 M47.892 Other spondylosis, cervical rogelio on Jessica Cordoba M.D. 01/26/2021 M62.9 Disorder of muscle, unspecified Jessica Cordoba M.D. Plan of Treatment Future Appointment(s):* 04/28/2021 1:00 pm - Kaur Edwards P.A.-C. at Main office [facility] 02/26/2021 - Kaur Edwards P.A.-C.* M54.2 Cervicalgia* [...]
--- OUTSIDE RECORDS SUMMARY | 2021-03-15 10:08 | CCD ---
Author Author [facility] Organization [facility] Address Unknown Phone Unavailable Care Team Providers Care Animal Rescuer Name Role Phone Marvin Garcias Unavailable PROBLEMS Type Condition ICD9-CM Code [id number] Code Onset Dates Condition S tatus W/U Status Risk SNOMED Code Notes Problem Lumbar radiculopathy, chronic M54.16 Active confirm ed 504370749 Problem Postlaminectomy syndrome, not elsewhere classified M96.1 Active confirmed 39089093 Problem Dry eyes, bilateral H04.123 Active confirmed 903277301 Problem Tobacco dependence F17.200 Active confirmed 64835611 Problem Spondylosis of lumbar region without myelopathy or radiculopathy M47.816 Active confirmed 63491113 Problem Chronic low back pain with left-sided sciatica M54 .42 Active confirmed 52952470 Problem Chronic prescription opiate use Z79.891 Active confirmed 340816147 Problem Abnormal vaginal bleeding N93.9 Active confirmed 318780121 Problem Other fatigue R53.83 Active confirmed 686372 01 Problem Abnormal uterine bleeding N93.9 Active confirmed 09882377625752 Problem Thrush, oral B37.0 Active confirmed 3246117 0 Problem Spondylosis of lumbosacral region without myelop athy or radiculopathy M47.817 Active confirmed 07780783 Problem Intervertebral disc disorder with radiculopathy of lumbosacral region M51.17 Active confirmed 30815782 Problem Dry eyes H04.123 Active confirmed 947442251 Problem Lumbar post-laminectomy syndrome M96.1 Active conf irmed 829832945 Status post spinal column stimulator Problem Myalgia, other site M79.18 Active confirmed 44954166 Problem Screening mammography declined Z53.20 Active confir med 921751211 Problem Intervertebral disc disorders with radiculopathy , lumbar region M51.16 Active confirmed 531468444673543 Problem Intermittent palpitations R00.2 Active confirmed 144688008 Problem Radiculopathy, thoracic region M54.14 Active confir med 18667234 Problem Sacroiliitis, not elsewhere classified M46.1 A ctive confirmed 960775249 Problem Protrusion of thoracic intervertebral disc M51.24 Active confirmed 92225067 Problem Spondylosis without myelopathy or radiculopathy, 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 Active confirmed 405405585 Problem Disc displacement, thoracic M51.24 Active confirmed 97650913 Problem Spinal cord stimulator status Z96.89 Active confirm ed 351744084 Incident after MRI ALLERGIES Allergen (clinical drug ingredient) Drug/Non Drug Allergy do cumented on EMR Reaction Allergy Type Onset Date Status Penicillin (For Allergies Use Only) severe yeast infection Drug Allergy Active amoxicillin Amoxicillin(ND Code:[address]-41) severe yeast infection Drug Allergy Active aspirin Aspirin(ND Code:[address]-08) swelling Drug Allergy Active gabapentin Gabapentin(ND Code:[address]-13) "felt yucky" Drug Aller gy Active pregabalin Lyrica(ND Code:[address]-56) [place] yucky" Drug Allergy Active ENCOUNTERS from 1976 to 2021-01-01 Encounter Location Date Provider Diagnosis [facility] [address] [facility] 3rd Floor [phone] [place] [address] Dec, Marvin Garcias IMMUNIZATIONS Vaccine Route Administration Date Status Influenza 6mo & up Fluzone IM Intramuscular Mar 01, 2016 Admi nistered SOCIAL HISTORY Tobacco Use: Social History Observation Description Date Details (start date - stop date) Current Smoker Sex Assigned At : Social History Observation Description Sex Assigned At Unknown Education: Question Answer Notes Level of Education: High School Language: Question Answer Notes Languages spoken: Yemeni Scientology: Question Answer Notes Scientology 33 None No christianity beliefs that would impact health care. Sexual Hx: Question Answer Notes Had sex in the last 12 months (vaginal, oral, or anal)? Yes Alcohol Screening: Question Answer Notes Did you have a drink containing alcohol in the past year? No Points 0 Interpretation Negative Tobacco Use: Question Answer Notes Are you a: current smoker Smoking Cessation Information Given 05/14/2018 Patient counseled on the dangers of tobacco use and urged to quit: 12/04/2020 How many cigarettes a day do you smoke? 5 or less Are you interested in quitting? Thinking about quitting Cutt ing Down Currently, 3 a day right now Counseled the patient on smoking cessation, education provid ed 12/18/2020 REASON FOR REFERRAL No Information VITAL SIGNS No information MEDICATIONS Medication SIG (Take, Route, Frequency, Duration) Notes Start Da te End Date Status rOPINIRole HCl 0.25 MG 1 to 2 Orally before bedtime for 30 d ay(s) Hasn't started and not sure if she is going to May, Not-Taki ng cloNIDine HCl 0.1 MG 1 tab Orally Am and PM for 10 days August, Not-Taking PriLOSEC as directed Orally if needed for heartburn Active cloNIDine HCl 0.1 MG 1 tablet Orally q8h for 10 days 2017 Not-Taking Naproxen 500 MG 1 tablet as needed Orally every 12 hrs for 30 da y(s) Jul, Active Lidocaine 4 % as directed Externally Small amount to affected area every 6 hours as needed for 30 Days Mar, Not-Taking Lidoderm 5 % 1 patch remove after 12 hours Externally Once a day Jan, Not-Taking Morphine Sulfate ER 15 MG 1 tablet Orally q8h TID MDD3 for 30 da ys Nov, Active Tylenol 325 MG 1 tablet as needed Orally every 4 hrs as needed Not-Taking Morphine Sulfate 15 MG 1 Orally for pain Twice a da y if needed for severe pain episodes MDD 2 for 30 days Nov, Activ e Dramamine 50 MG 1 tablet as needed Orally every 6 hrs Active Energy Focus 1 gummie orally takes 1 gummie vitamin b12 daily Active tiZANidine HCl 2 MG 1 tablet as needed Orally be fore bedtime May repeat in 4 hrs MDD2 for 30 day(s) May, Not-Taking PROCEDURES No Information RESULTS No Results REASON FOR VISIT DCS ADDITIONAL PROBLEMS WITH UNIT MEDICAL (GENERAL) HISTORY Type Description Date Medical History chronic back pain Medical History EMG shows mild, chronic L S1 and possibly L5 radiculopathy; mild chronic R L5 radiculopathy (08/2015) Medical History DCS Medical History LEGS PAIN Surgical History laminectomy 1997 Surgical History back surgery again 1998 Surgical History diagnostic laparascopy with endometriosi s ablation (Martirdatim) 2003 (?) Surgical History DCS 06/26/17 Surgical History permanent DCS placement 07/2017 Surgical History Pneumothorax x 4 (most recent 1996) Surgical History dorsal colum stimulator 2017 Hospitalization History surgeries Hospitalization History Pneumothorax Hospitalization History MRI- WENT TO ER HAD A ISSUE WITH HER DORSAL COLUM STIMULATOR ELETRONICS HEATED UP AND BURNED HER MUSCLES FROM THE INSIDE SHE WAS SENT TO THE ER AFTERWORDS, 1ST MRI WITH THE DORSAL COLUM STIMULATOR 02/13/2020 Goals Section No Information Health Concerns No Information MEDICAL EQUIPMENT No Information MENTAL STATUS No Information FUNCTIONAL STATUS No Information ASSESSMENTS No Information PLAN OF TREATMENT Medication Medication Name Sig Start Date Stop Date Morphine Sulfate 15 MG 1 Orally for pain Twice a da y if needed for severe pain episodes MDD 2 for 30 days Nov, Morphine Sulfate ER 15 MG 1 tablet Orally q8h TID MDD3 for 30 da ys Nov, Next Appt Details Provider Name:Marvin Garcias, 2021-01-05 03:15:00 PM, [address] [place] [address], , [place], [address], Provider Name:Stephanie Gamboa, 2021-01-05 03 :30:00 PM, [address] [facility], , [place], [address], Provider Name:Marvin Garcias, 2021-02-25 02:45:00 PM, [address] [place] [address], , [place], [address], Provider Name:Marvin Garcias, 2021-03-31 02:45:00 PM, [address] [place] [address], , [place], [address], Insurance Providers Payer Name Payer Address Payer Phone Insured Name Patient Relati onship to Insured Coverage Start Date Coverage End Date [facility] [id number] [facility] [phone] [employer] [place]
--- OUTSIDE RECORDS SUMMARY | 2021-03-15 10:08 | CCD ---
Author Author [facility] Organization [facility] Address Unknown Phone Unavailable Care Team Providers Care Socket Welder Helper Name Role Phone Marvin Garcias Unavailable PROBLEMS Type Condition ICD9-CM Code [id number] Code Onset Dates Condition S tatus W/U Status Risk SNOMED Code Notes Problem Lumbar radiculopathy, chronic M54.16 Active confirm ed 429877391 Problem Postlaminectomy syndrome, not elsewhere classified M96.1 Active confirmed 86642817 Problem Dry eyes, bilateral H04.123 Active confirmed 861716352 Problem Tobacco dependence F17.200 Active confirmed 19145934 Problem Spondylosis of lumbar region without myelopathy or radiculopathy M47.816 Active confirmed 08803071 Problem Chronic low back pain with left-sided sciatica M54 .42 Active confirmed 85102189 Problem Chronic prescription opiate use Z79.891 Active confirmed 121001663 Problem Abnormal vaginal bleeding N93.9 Active confirmed 846416544 Problem Other fatigue R53.83 Active confirmed 238121 01 Problem Abnormal uterine bleeding N93.9 Active confirmed 36507464784575 Problem Thrush, oral B37.0 Active confirmed 8095645 0 Problem Spondylosis of lumbosacral region without myelop athy or radiculopathy M47.817 Active confirmed 37411796 Problem Intervertebral disc disorder with radiculopathy of lumbosacral region M51.17 Active confirmed 20845567 Problem Dry eyes H04.123 Active confirmed 839260173 Problem Lumbar post-laminectomy syndrome M96.1 Active conf irmed 054315281 Status post spinal column stimulator Problem Myalgia, other site M79.18 Active confirmed 57670406 Problem Screening mammography declined Z53.20 Active confir med 660109989 Problem Intervertebral disc disorders with radiculopathy , lumbar region M51.16 Active confirmed 901999227899921 Problem Intermittent palpitations R00.2 Active confirmed 209332296 Problem Radiculopathy, thoracic region M54.14 Active confir med 57424971 Problem Sacroiliitis, not elsewhere classified M46.1 A ctive confirmed 391924811 Problem Protrusion of thoracic intervertebral disc M51.24 Active confirmed 59406873 Problem Spondylosis without myelopathy or radiculopathy, 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 Active confirmed 112203738 Problem Disc displacement, thoracic M51.24 Active confirmed 92913948 Problem Spinal cord stimulator status Z96.89 Active confirm ed 877084752 Incident after MRI ALLERGIES Allergen (clinical drug ingredient) Drug/Non Drug Allergy do cumented on EMR Reaction Allergy Type Onset Date Status Penicillin (For Allergies Use Only) severe yeast infection Drug Allergy Active amoxicillin Amoxicillin(ND Code:[address]-71) severe yeast infection Drug Allergy Active aspirin Aspirin(ND Code:[address]-15) swelling Drug Allergy Active gabapentin Gabapentin(ND Code:[address]-66) "felt yucky" Drug Aller gy Active pregabalin Lyrica(ND Code:[address]-12) [place] yucky" Drug Allergy Active ENCOUNTERS from 1976 to 2020-12-30 Encounter Location Date Provider Diagnosis [facility] [address] [facility] 3rd Floor [phone] [place] [address] Nov, Marvin Garcias Lumbar post-laminect geovanni syndrome M96.1 and Neuralgia M79.2 IMMUNIZATIONS Vaccine Route Administration Date Status Influenza 6mo & up Fluzone IM Intramuscular Mar 01, 2016 Admi nistered SOCIAL HISTORY Tobacco Use: Social History Observation Description Date Details (start date - stop date) Current Smoker Sex Assigned At : Social History Observation Description Sex Assigned At Unknown Education: Question Answer Notes Level of Education: High School Language: Question Answer Notes Languages spoken: Faroese Buddhist: Question Answer Notes Buddhist 33 None No faith beliefs that would impact health care. Sexual [...] education provid ed 12/18/2020 REASON FOR REFERRAL from 1976 to 2020-12-30 Reason posssible dorsal column stim ulator removal|severe pain and weakness status post MRI Diagnosis 1 Lumbar post-laminectomy synd lottie (M96.1) Referral Organization [facility] Referring Provider First Name Marvin Referring Provider Last Name Katerine Referring Provider Specialty Pain Medicine Referred Provider Michael Combs Referred Provider Specialty Orthopedic Surgery Referral Priority Routine Referral Appointment Date 2021-01-01 General Notes Cindy Pappas 12/19/19 21 02:34:58 PM > The patient had an MRI a year ago and since then has been experiencing severe pain and weakness in all extremities. The patient cannot use her stimulator. She is interested in possibly having it removed. Please evaluate the patient.Cindy Pappas 12/29/2020 10:02:16 AM > 12/22/2020- ortho called patient, unable to leave message VITAL SIGNS Weight 122.8 lbs Nov, Weight-kg 55.7 kg Nov, Height 64 in Nov, BMI 21.08 kg/m2 Nov, Heart Rate 72 /min Nov, Respiratory Rate 18 /min Nov, Temperature 98.7 degrees Fahrenheit Nov, Oximetry 98% Nov, Blood pressure systolic 128 mm Hg Nov, Blood pressure diastolic 56 mm Hg Nov, MEDICATIONS Medication SIG (Take, Route, Frequency, Duration) [...] Information RESULTS No Results REASON FOR VISIT reevaluate dcs status MEDICAL (GENERAL) HISTORY Type Description Date Medical History chronic back pain Medical History EMG shows mild, chronic L S1 and possibly L5 radiculopathy; mild chronic R L5 radiculopathy (08/2015) Medical History DCS Medical History LEGS PAIN Surgical History laminectomy 1997 Surgical History back surgery again 1998 Surgical History diagnostic laparascopy with endometriosi s ablation () 2003 (?) Surgical History DCS 06/26/17 Surgical [...] No Information FUNCTIONAL STATUS No Information ASSESSMENTS Encounter Date Diagnosis Assessment Notes Treatment Notes Treatm ent Clinical Notes Nov, Lumbar post-laminectomy syndrome (ICD-10 - M96.1) Status post spinal column stimulator We agree with Ms. Chamberlain on continuing the medications. We also agree on removing the DCS with the purpose of doing MRIs. We will send Charmaine for a surgical consult with the new surgeon at [facility]. The plan will be for me to be in the room with him when the device is removed. I will communicate with him. Charmaine wants to think about whether she keeps the device or send it to [facility] for aanylosis. We are still waiting for the neurological consult which is 01/18/2021. The patient reports understanding and agrees with the plan. I, Cindy Pappas, documented the above information acting as a scribe for Dr. Garcias. I have reviewed the above document, written by vandana Cristina scribe, and I verify that it is accurate. Michael Lew Nov, Neuralgia (ICD-10 - M79.2) Upper and lower extre mities PLAN OF TREATMENT Medication Medication Name Sig Start Date Stop Date Morphine Sulfate 15 MG 1 Orally for pain Twice a da y if needed for severe pain episodes MDD 2 for 30 days Nov, Morphine Sulfate ER 15 MG 1 tablet Orally q8h TID MDD3 for 30 da ys Nov, Treatment Notes Assessment Notes Clinical Notes Lumbar post-laminectomy syndrome We agre e with Ms. Chamberlain on continuing the medications. We also agree on removing the DCS with the purpose of doing MRIs. We will send Charmaine for a surgical consult with the new surgeon at [facility]. The plan will be for me to be in the room with him when the device is removed. I will communicate with him. Charmaine wants to think about whether she keeps the device or send it to [facility] for aanylosis. We are still waiting for the neurological consult which is 01/18/2021. The patient reports understanding and agrees with the plan. ICindy, documented the above information acting as a scribe for Dr. Garcias. I have reviewed the above document, written by Cindy Pappas medical territory manager, and I verify that it is accurate.Michael Lew Referrals Referral Date Details 2021-01-01 2021-01-01, posssible dorsal column stimulator removal|severe pain and weakness status post MRI, Michael Paul-Pack Next Appt Details End of January or beginning mar Reasagustin n:Check status of DCS Provider Name:Stephanie Gamboa, 2021-01-05 03 :30:00 PM, [address] [facility], , [place], [address], Provider Name:Marvin Garcias, 2021-02-25 02:45:00 PM, [address], , [place], [address], Provider Name:Marvin Garcias, 2021-03-31 02:45:00 PM, [address], , [place], [address], Follow Up:End of January or status of DCS Insurance Providers Payer Name Payer Address Payer Phone Insured Name Patient Relati onship to Insured Coverage Start Date Coverage End Date [facility] [id number] [facility] [phone] CHARMAINE CHAMBERLAIN self
--- OUTSIDE RECORDS SUMMARY | 2021-03-15 10:08 | CCD | Continuity of Care Document ---
Author Author Charmaine WHALEN DO Organization Unknown Address [address] [place] [address], [facility] [place] [address] Phone [phone] Care Team Providers Care Cook Room Supervisor Name Role Phone AUTM Unavailable Marvin Talbot MD AUTM [phone] Stephanie Gamboa D.O. AUTM [phone] Problems Description No Information Available Social History Type Date Description Comments Sex Unknown ETOH Use Denies alcohol use Recreational Drug Use Denies Drug Use Tobacco Use Start: 05/01/99 Patient is a current smoker, smo kes every day 1 PPD Exercise Type/Frequency Does not exercise Allergies, Adverse Reactions, Alerts Active Allergies Criticality Reaction | Severity Comments Date Aspir-Low Unable to assess criticality 01/31/2019 Medications Active Medications SIG Qnty Indications Ordering Provide r Date Morphine Sulfate ER 15mg Tablets E R 1 tab by mouth every 8 hours 30tabs Unknown 0 Morphine Ir 15 MG 1 tab po bid Unknown Immunizations Description No Information Available Vital Signs Date Vital Result Comment 01/31/2019 1:07pm BP Systolic 102 mmHg BP Diastolic 62 mmHg Height 64 inches 5'4" Weight 119.00 lb BMI (Body Mass Index) 20.4 kg/m2 [place] Body Weight 120 lb Weight 53.978 kg BSA (Body Surface Area) 1.57 m2 Results Description No Information Available Procedures Description No Information Available Medical Devices Description No Information Available Encounters Description No Information Available Assessments Description No Information Available Plan of Treatment No Information Available Functional Status Description No Information Available Mental Status Description No Information Available Referrals Description No Information Available
--- OUTSIDE RECORDS SUMMARY | 2021-03-15 10:08 | CCD | Continuity of Care Document ---
Author Author Charmaine CORDOBA M.D. Organization Unknown Address [address] [place] [address] Phone [phone] Care Team Providers Care Power Technician Name Role Phone Marvin Talbot M.D. AUTM [phone] Stephanie Gamboa DO AUTM [phone] Problems Description No Information Available Social History Type Date Description Comments Sex Unknown Allergies, Adverse Reactions, Alerts Description No Information Available Medications Description No Information Available Immunizations Description No Information Available Vital Signs Description No Information Available Results Description No Information Available Procedures Date Code Description Status 01/26/2021 [address]379 Office/Outpatient New Moderate M DM 45-59 Minutes Completed Medical Devices Description No Information Available Encounters Type Date Location Provider Dx Diagnosis Office Visit 01/26/2021 10:45a [facility] Jessica Cordoba M.D. M79.609 Pain in unspecified limb M47.892 Other spondylosis, cervical region M62.9 Disorder of muscle, unspecif ied Assessments Date Code Description Provider 01/26/2021 M79.609 Pain in unspecified limb Jessica Cordoba M.D. 01/26/2021 M47.892 Other spondylosis, cervical rogelio on Jessica Cordoba M.D. 01/26/2021 M62.9 Disorder of muscle, unspecified Jessica Cordoba M.D. Plan of Treatment Future Appointment(s):* 02/09/2021 9:30 am - Laura Cordoba M.D. at [facility] * 02/26/2021 10:30 am - Kaur Edwards P.A.-C. at [facility] * 02/04/2021 11:00 am - Laura Cordoba M.D. at [facility] Functional Status Description No Information Available Mental Status Description No Information Available Referrals Description No Information Available
--- OUTSIDE RECORDS SUMMARY | 2021-03-15 10:08 | CCD ---
Author Author [facility] Organization [facility] Address Unknown Phone Unavailable Care Team Providers Care Software Test Technician Name Role Phone Marvin Garcias Unavailable PROBLEMS Type Condition ICD9-CM Code [id number] Code Onset Dates Condition S tatus W/U Status Risk SNOMED Code Notes Problem Lumbar radiculopathy, chronic M54.16 Active confirm ed 295347236 Problem Postlaminectomy syndrome, not elsewhere classified M96.1 Active confirmed 16493217 Problem Dry eyes, bilateral H04.123 Active confirmed 231220982 Problem Tobacco dependence F17.200 Active confirmed 18057063 Problem Spondylosis of lumbar region without myelopathy or radiculopathy M47.816 Active confirmed 19933281 Problem Chronic low back pain with left-sided sciatica M54 .42 Active confirmed 77875014 Problem Chronic prescription opiate use Z79.891 Active confirmed 223892519 Problem Abnormal vaginal bleeding N93.9 Active confirmed 775643383 Problem Other fatigue R53.83 Active confirmed 613224 01 Problem Abnormal uterine bleeding N93.9 Active confirmed 64245287195377 Problem Thrush, oral B37.0 Active confirmed 7988681 0 Problem Spondylosis of lumbosacral region without myelop athy or radiculopathy M47.817 Active confirmed 25306192 Problem Intervertebral disc disorder with radiculopathy of lumbosacral region M51.17 Active confirmed 79060924 Problem Dry eyes H04.123 Active confirmed 600030263 Problem Lumbar post-laminectomy syndrome M96.1 Active conf irmed 925358757 Status post spinal column stimulator, status post MRI with consequence upper extremity pain Problem Myalgia, other site M79.18 Active confirmed 15286985 Problem Screening mammography declined Z53.20 Active confir med 540030537 Problem Intervertebral disc disorders with radiculopathy , lumbar region M51.16 Active confirmed 797811652195277 Problem Intermittent palpitations R00.2 Active confirmed 616158600 Problem Radiculopathy, thoracic region M54.14 Active confir med 87134322 Problem Sacroiliitis, not elsewhere classified M46.1 A ctive confirmed 823111482 Problem Protrusion of thoracic intervertebral disc M51.24 Active confirmed 64753735 Problem Spondylosis without myelopathy or radiculopathy, 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 Active confirmed 735695578 Problem Disc displacement, thoracic M51.24 Active confirmed 53573877 Problem Spinal cord stimulator status Z96.89 Active confirm ed 725004508 Incident after MRI ALLERGIES Allergen (clinical drug ingredient) Drug/Non Drug Allergy do cumented on EMR Reaction Allergy Type Onset Date Status Penicillin (For Allergies Use Only) severe yeast infection Drug Allergy Active amoxicillin Amoxicillin(NDC Code:[address]-77) severe yeast infection Drug Allergy Active aspirin Aspirin(ND Code:[address]-10) swelling Drug Allergy Active gabapentin Gabapentin(ND Code:[address]-81) "felt yucky" Drug Aller gy Active pregabalin Lyrica(ND Code:[address]-97) [place] yucky" Drug Allergy Active ENCOUNTERS from 1976 to 2021-01-09 Encounter Location Date Provider Diagnosis [facility] [address] Floor [phone] [place] [address] Dec, Marvin Garcias IMMUNIZATIONS Vaccine Route Administration [...] School Language: Question Answer Notes Languages spoken: Tajik Yazidism: Question Answer Notes Yazidism 33 None No nondenominational beliefs that would impact health care. Sexual [...] of tobacco use and urged to quit: 01/05/2021 How many cigarettes a day do you smoke? 5 or less Are you interested in quitting? Thinking about quitting Cutt ing Down Currently, 3 a day right now Counseled the patient on smoking cessation, education provid ed 01/05/2021 REASON FOR REFERRAL No Information VITAL SIGNS No information MEDICATIONS Medication SIG (Take, Route, Frequency, Duration) Notes Start Da te End Date Status cloNIDine HCl 0.1 MG 1 tablet Orally q8h for 10 days 2017 Not-Taking Energy Focus 1 gummie orally takes 1 gummie vitamin b12 daily Active Lidocaine 4 % as directed Externally Small amount to affected area every 6 hours as needed for 30 Days Mar, Not-Taking Naproxen 500 MG 1 tablet as needed Orally every 12 hrs for 30 da y(s) Jul, Active tiZANidine HCl 2 MG 1 tablet as needed Orally be fore bedtime May repeat in 4 hrs MDD2 for 30 day(s) May, Not-Taking Morphine Sulfate ER 15 MG 1 tablet Orally q8h TID MDD3 for 30 da ys Nov, Active Lidoderm 5 % 1 patch remove after 12 hours Externally Once a day Jan, Not-Taking Tylenol 325 MG 1 tablet as needed Orally every 4 hrs as needed Not-Taking Dramamine 50 MG 1 tablet as needed Orally every 6 hrs Active cloNIDine HCl 0.1 MG 1 tab Orally Am and PM for 10 days August, Not-Taking Morphine Sulfate 15 MG 1 Orally for pain Twice a da y if needed for severe pain episodes MDD 2 for 30 days Nov, Activ e rOPINIRole HCl 0.25 MG 1 to 2 Orally before bedtime for 30 d ay(s) Hasn't started and not sure if she is going to May, Not-Taki ng PriLOSEC as directed Orally if needed for heartburn Active PROCEDURES No Information RESULTS No Results REASON FOR VISIT talk with surgeon MEDICAL (GENERAL) HISTORY Type Description Date Medical History chronic back pain Medical History EMG shows mild, chronic L S1 and possibly L5 radiculopathy; mild chronic R L5 radiculopathy (08/2015) Medical History DCS Medical History LEGS PAIN Surgical History laminectomy 1997 Surgical History back surgery again 1998 Surgical History diagnostic laparascopy with endometriosi s ablation ([place]) 2003 (?) Surgical History DCS 06/26/17 Surgical [...] Information ASSESSMENTS No Information PLAN OF TREATMENT Next Appt Details Provider Name:Marvin Garcias, 2021-02-25 02:45:00 PM, [address] [place] [address], , [place], [address], Provider Name:Marvin Garcias, 2021-03-31 02:45:00 PM, [address], , [place], [address], Insurance Providers Payer Name Payer Address Payer Phone Insured Name Patient Relati onship to Insured Coverage Start Date Coverage End Date [facility] [address] [facility] [id number] SAEED MCLEOD
--- OUTSIDE RECORDS SUMMARY | 2021-03-15 10:08 | CCD ---
Author Author [facility] Organization [facility] Address Unknown Phone Unavailable Care Team Providers Care Ecommerce Project Manager Name Role Phone Marvin Garcias Unavailable PROBLEMS Type Condition ICD9-CM Code [id number] Code Onset Dates Condition S tatus W/U Status Risk SNOMED Code Notes Problem Lumbar radiculopathy, chronic M54.16 Active confirm ed 466473439 Problem Postlaminectomy syndrome, not elsewhere classified M96.1 Active confirmed 36683962 Problem Dry eyes, bilateral H04.123 Active confirmed 436670447 Problem Tobacco dependence F17.200 Active confirmed 62173325 Problem Spondylosis of lumbar region without myelopathy or radiculopathy M47.816 Active confirmed 97681629 Problem Chronic low back pain with left-sided sciatica M54 .42 Active confirmed 64186104 Problem Chronic prescription opiate use Z79.891 Active confirmed 546826985 Problem Abnormal vaginal bleeding N93.9 Active confirmed 697724169 Problem Other fatigue R53.83 Active confirmed 581047 01 Problem Abnormal uterine bleeding N93.9 Active confirmed 67828278447055 Problem Thrush, oral B37.0 Active confirmed 5536366 0 Problem Spondylosis of lumbosacral region without myelop athy or radiculopathy M47.817 Active confirmed 75603077 Problem Intervertebral disc disorder with radiculopathy of lumbosacral region M51.17 Active confirmed 04324146 Problem Dry eyes H04.123 Active confirmed 837116422 Problem Lumbar post-laminectomy syndrome M96.1 Active conf irmed 298992129 Status post spinal column stimulator, status post MRI with consequence upper extremity pain Problem Myalgia, other site M79.18 Active confirmed 83953594 Problem Screening mammography declined Z53.20 Active confir med 648594759 Problem Intervertebral disc disorders with radiculopathy , lumbar region M51.16 Active confirmed 109410765758825 Problem Intermittent palpitations R00.2 Active confirmed 232038309 Problem Radiculopathy, thoracic region M54.14 Active confir med 72092477 Problem Sacroiliitis, not elsewhere classified M46.1 A ctive confirmed 246856907 Problem Protrusion of thoracic intervertebral disc M51.24 Active confirmed 69447585 Problem Spondylosis without myelopathy or radiculopathy, 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 Active confirmed 242255418 Problem Disc displacement, thoracic M51.24 Active confirmed 38265673 Problem Spinal cord stimulator status Z96.89 Active confirm ed 660175388 Incident after MRI ALLERGIES Allergen (clinical drug ingredient) Drug/Non Drug Allergy do cumented on EMR Reaction Allergy Type Onset Date Status Penicillin (For Allergies Use Only) severe yeast infection Drug Allergy Active amoxicillin Amoxicillin(NDC Code:[address]-45) severe yeast infection Drug Allergy Active aspirin Aspirin(ND Code:[address]-69) swelling Drug Allergy Active gabapentin Gabapentin(ND Code:[address]-47) "felt yucky" Drug Aller gy Active pregabalin Lyrica(ND Code:[address]-67) [place] yucky" Drug Allergy Active ENCOUNTERS from 1975 to 2021-01-12 Encounter Location Date Provider Diagnosis [facility] [address] Floor [phone] [place] [address] Dec, Marvin Garcias IMMUNIZATIONS Vaccine Route Administration [...] School Language: Question Answer Notes Languages spoken: Thai Restoration: Question Answer Notes Restoration 33 None No sabianism beliefs that would impact health care. Sexual [...] Information RESULTS No Results REASON FOR VISIT PHONE CALL FOR DOC TO DOC MEDICAL (GENERAL) HISTORY Type Description Date Medical [...] Details Provider Name:Marvin Garcias, 2021-02-25 02:45:00 PM, [address] [place] [address], , [place], [address], Provider Name:Marvin Garcias, 2021-03-31 02:45:00 PM, [address], , [place], [address], Insurance Providers Payer Name Payer Address Payer Phone Insured Name Patient Relati onship to Insured Coverage Start Date Coverage End Date [facility] [id number] [facility] [id number] SAEED MCLEOD
--- OUTSIDE RECORDS SUMMARY | 2021-03-15 10:08 | CCD ---
Author Author [facility] Organization [facility] Address Unknown Phone Unavailable Care Team Providers Care Ornamenter Name Role Phone Marvin Garcias Unavailable PROBLEMS Type Condition ICD9-CM Code [id number] Code Onset Dates Condition S tatus W/U Status Risk SNOMED Code Notes Problem Lumbar radiculopathy, chronic M54.16 Active confirm ed 810966668 Problem Postlaminectomy syndrome, not elsewhere classified M96.1 Active confirmed 28097498 Problem Dry eyes, bilateral H04.123 Active confirmed 279510201 Problem Tobacco dependence F17.200 Active confirmed 69790646 Problem Spondylosis of lumbar region without myelopathy or radiculopathy M47.816 Active confirmed 93805797 Problem Chronic low back pain with left-sided sciatica M54 .42 Active confirmed 83802027 Problem Chronic prescription opiate use Z79.891 Active confirmed 322089833 Problem Abnormal vaginal bleeding N93.9 Active confirmed 962648856 Problem Other fatigue R53.83 Active confirmed 793126 01 Problem Abnormal uterine bleeding N93.9 Active confirmed 54377175752535 Problem Thrush, oral B37.0 Active confirmed 0166760 0 Problem Spondylosis of lumbosacral region without myelop athy or radiculopathy M47.817 Active confirmed 78196723 Problem Intervertebral disc disorder with radiculopathy of lumbosacral region M51.17 Active confirmed 55510618 Problem Dry eyes H04.123 Active confirmed 190191723 Problem Lumbar post-laminectomy syndrome M96.1 Active conf irmed 530503802 Status post spinal column stimulator Problem Myalgia, other site M79.18 Active confirmed 29488427 Problem Screening mammography declined Z53.20 Active confir med 522009691 Problem Intervertebral disc disorders with radiculopathy , lumbar region M51.16 Active confirmed 743224220166195 Problem Intermittent palpitations R00.2 Active confirmed 591549557 Problem Radiculopathy, thoracic region M54.14 Active confir med 63433886 Problem Sacroiliitis, not elsewhere classified M46.1 A ctive confirmed 276824590 Problem Protrusion of thoracic intervertebral disc M51.24 Active confirmed 63028098 Problem Spondylosis without myelopathy or radiculopathy, 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 Active confirmed 715441405 Problem Disc displacement, thoracic M51.24 Active confirmed 75667846 Problem Spinal cord stimulator status Z96.89 Active confirm ed 642441122 Incident after MRI ALLERGIES Allergen (clinical drug ingredient) Drug/Non Drug Allergy do cumented on EMR Reaction Allergy Type Onset Date Status Penicillin (For Allergies Use Only) severe yeast infection Drug Allergy Active amoxicillin Amoxicillin(ND Code:[address]-63) severe yeast infection Drug Allergy Active aspirin Aspirin(ND Code:[address]-56) swelling Drug Allergy Active gabapentin Gabapentin(ND Code:[address]-55) "felt yucky" Drug Aller gy Active pregabalin Lyrica(ND Code:[address]-08) [place] yucky" Drug Allergy Active ENCOUNTERS from 1976 to 2020-12-23 Encounter Location Date Provider Diagnosis [facility] [address] [facility] 3rd Floor [phone] [place] [address] Nov, Marvin Garcias IMMUNIZATIONS Vaccine Route Administration Date [...] School Language: Question Answer Notes Languages spoken: Filipino Yazidism: Question Answer Notes Yazidism 33 None No bahai beliefs that would impact health care. Sexual [...] Information RESULTS No Results REASON FOR VISIT Call needed MEDICAL (GENERAL) HISTORY Type Description Date Medical History chronic back pain Medical History EMG shows mild, chronic L S1 and possibly L5 radiculopathy; mild chronic R L5 radiculopathy (08/2015) Medical History DCS Medical History LEGS PAIN Surgical History laminectomy 1997 Surgical History back surgery again 1998 Surgical History diagnostic laparascopy with endometriosi s ablation ([place]) 2003 (?) Surgical History DCS 06/26/17 Surgical [...] da ys Nov, Next Appt Details Provider Name:Stephanie Bee, 2021-01-05 03 :30:00 PM, [address] [facility], , [place], [address], Provider Name:Marvin Garcias, 2021-02-25 02:45:00 PM, [address] [place] [address], , [place], [address], Provider Name:Marvin Garcias, 2021-03-31 02:45:00 PM, [address], , [place], [address], Insurance Providers Payer Name Payer Address Payer Phone Insured Name Patient Relati onship to Insured Coverage Start Date Coverage End Date [facility] [address] [facility] [id number] SAEED MCLEOD self
--- OUTSIDE RECORDS SUMMARY | 2021-03-15 10:08 | CCD ---
Author Author [facility] Organization [facility] Address Unknown Phone Unavailable Care Team Providers Care Certified Rehabilitation Counselor Name Role Phone Marvin Garcias Unavailable PROBLEMS Type Condition ICD9-CM Code [id number] Code Onset Dates Condition S tatus W/U Status Risk SNOMED Code Notes Problem Lumbar radiculopathy, chronic M54.16 Active confirm ed 782254998 Problem Postlaminectomy syndrome, not elsewhere classified M96.1 Active confirmed 89205786 Problem Dry eyes, bilateral H04.123 Active confirmed 637069721 Problem Tobacco dependence F17.200 Active confirmed 71368548 Problem Spondylosis of lumbar region without myelopathy or radiculopathy M47.816 Active confirmed 09780846 Problem Chronic low back pain with left-sided sciatica M54 .42 Active confirmed 60693255 Problem Chronic prescription opiate use Z79.891 Active confirmed 865598029 Problem Abnormal vaginal bleeding N93.9 Active confirmed 991922251 Problem Other fatigue R53.83 Active confirmed 473859 01 Problem Abnormal uterine bleeding N93.9 Active confirmed 87326556703437 Problem Thrush, oral B37.0 Active confirmed 8103635 0 Problem Spondylosis of lumbosacral region without myelop athy or radiculopathy M47.817 Active confirmed 03593492 Problem Intervertebral disc disorder with radiculopathy of lumbosacral region M51.17 Active confirmed 75413615 Problem Dry eyes H04.123 Active confirmed 153661464 Problem Lumbar post-laminectomy syndrome M96.1 Active conf irmed 907315559 Status post spinal column stimulator, status post MRI with consequence upper extremity pain Problem Myalgia, other site M79.18 Active confirmed 25986630 Problem Screening mammography declined Z53.20 Active confir med 256604726 Problem Intervertebral disc disorders with radiculopathy , lumbar region M51.16 Active confirmed 421167467691247 Problem Intermittent palpitations R00.2 Active confirmed 779680640 Problem Radiculopathy, thoracic region M54.14 Active confir med 42052004 Problem Sacroiliitis, not elsewhere classified M46.1 A ctive confirmed 165802438 Problem Protrusion of thoracic intervertebral disc M51.24 Active confirmed 42582531 Problem Spondylosis without myelopathy or radiculopathy, 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 Active confirmed 662264246 Problem Disc displacement, thoracic M51.24 Active confirmed 40228223 Problem Spinal cord stimulator status Z96.89 Active confirm ed 539837493 Incident after MRI ALLERGIES Allergen (clinical drug ingredient) Drug/Non Drug Allergy do cumented on EMR Reaction Allergy Type Onset Date Status Penicillin (For Allergies Use Only) severe yeast infection Drug Allergy Active amoxicillin Amoxicillin(NDC Code:[address]-79) severe yeast infection Drug Allergy Active aspirin Aspirin(ND Code:[address]-10) swelling Drug Allergy Active gabapentin Gabapentin(ND Code:[address]-04) "felt yucky" Drug Aller gy Active pregabalin Lyrica(ND Code:[address]-12) [place] yucky" Drug Allergy Active ENCOUNTERS from 1976 to 2021-02-08 Encounter Location Date Provider Diagnosis [facility] [address] Floor [phone] [place] [address] Jan, Marvin Garcias Lumbar post-laminect geovanni syndrome M96.1 IMMUNIZATIONS Vaccine Route Administration Date Status Influenza 6mo & up Fluzone IM Intramuscular Mar 01, 2016 Admi nistered SOCIAL HISTORY Tobacco Use: Social History Observation Description Date Details (start date - stop date) Current Smoker Sex Assigned At : Social History Observation Description Sex Assigned At Unknown Education: Question Answer Notes Level of Education: High School Language: Question Answer Notes Languages spoken: Yi Sikh: Question Answer Notes Sikh 33 None No restorationist beliefs that would impact health care. Sexual [...] Notes Start Da te End Date Status PriLOSEC as directed Orally if needed for heartburn Active Morphine Sulfate 15 MG 1 Orally for pain Twice a da y if needed for severe pain episodes MDD 2 for 30 days Jan, Activ e Lidocaine 4 % as directed Externally Small amount to affected area every 6 hours as needed for 30 Days Mar, Not-Taking Morphine Sulfate ER 15 MG 1 tablet Orally q8h TID MDD3 for 30 da ys Jan, Active tiZANidine HCl 2 MG 1 tablet as needed Orally be fore bedtime May repeat in 4 hrs MDD2 for 30 day(s) May, Not-Taking cloNIDine HCl 0.1 MG 1 tablet Orally q8h for 10 days 2017 Not-Taking cloNIDine HCl 0.1 MG 1 tab Orally Am and PM for 10 days August, Not-Taking Naproxen 500 MG 1 tablet as needed Orally every 12 hrs for 30 da y(s) Jul, Active Dramamine 50 MG 1 tablet as needed Orally every 6 hrs Active Tylenol 325 MG 1 tablet as needed Orally every 4 hrs as needed Not-Taking Lidoderm 5 % 1 patch remove after 12 hours Externally Once a day Jan, Not-Taking rOPINIRole HCl 0.25 MG 1 to 2 Orally before bedtime for 30 d ay(s) Hasn't started and not sure if she is going to May, Not-Taki ng Energy Focus 1 gummie orally takes 1 gummie vitamin b12 daily Active PROCEDURES No Information RESULTS No Results REASON FOR VISIT MORPHINE ER, MORPHINE IR REFILL MEDICAL (GENERAL) HISTORY Type Description Date Medical [...] Notes Treatment Notes Treatm ent Clinical Notes Jan, Lumbar post-laminectomy syndrome (ICD-10 - M96.1) Status post spinal column stimulator, status post MRI with consequence upper extremity pain PLAN OF TREATMENT Medication Medication Name Sig Start Date Stop Date Morphine Sulfate 15 MG 1 Orally for pain Twice a da y if needed for severe pain episodes MDD 2 for 30 days Jan, Morphine Sulfate ER 15 MG 1 tablet Orally q8h TID MDD3 for 30 da ys Jan, Next Appt Details Provider Name:Marvin Garcias, 2021-02-25 02:45:00 PM, [address] [place] [address], [place], [address], Provider Name:Marvin Garcias, 2021-03-15 09:00:00 AM, [address] [place] [address], , [place], [address], Provider Name:Marvin Garcias, 2021-03-31 02:45:00 PM, [address] [place] [address], , [place], [address], Insurance Providers Payer Name Payer Address Payer Phone Insured Name Patient Relati onship to Insured Coverage Start Date Coverage End Date [facility] [address] [facility] [phone] SAEED MCLEOD
--- OUTSIDE RECORDS SUMMARY | 2021-03-15 10:08 | CCD ---
Author Author [facility] Organization [facility] Address Unknown Phone Unavailable Care Team Providers Care Home Energy Auditor Name Role Phone Marvin Garcias Unavailable PROBLEMS Type Condition ICD9-CM Code [id number] Code Onset Dates Condition S tatus W/U Status Risk SNOMED Code Notes Problem Lumbar radiculopathy, chronic M54.16 Active confirm ed 046096662 Problem Postlaminectomy syndrome, not elsewhere classified M96.1 Active confirmed 62273782 Problem Dry eyes, bilateral H04.123 Active confirmed 354625146 Problem Tobacco dependence F17.200 Active confirmed 35538164 Problem Spondylosis of lumbar region without myelopathy or radiculopathy M47.816 Active confirmed 11781068 Problem Chronic low back pain with left-sided sciatica M54 .42 Active confirmed 03056478 Problem Chronic prescription opiate use Z79.891 Active confirmed 951814772 Problem Abnormal vaginal bleeding N93.9 Active confirmed 498993569 Problem Other fatigue R53.83 Active confirmed 696832 01 Problem Abnormal uterine bleeding N93.9 Active confirmed 96528525752995 Problem Thrush, oral B37.0 Active confirmed 5465351 0 Problem Spondylosis of lumbosacral region without myelop athy or radiculopathy M47.817 Active confirmed 51142831 Problem Intervertebral disc disorder with radiculopathy of lumbosacral region M51.17 Active confirmed 56013207 Problem Dry eyes H04.123 Active confirmed 394757138 Problem Lumbar post-laminectomy syndrome M96.1 Active conf irmed 343594325 Status post spinal column stimulator, status post MRI with consequence upper extremity pain Problem Myalgia, other site M79.18 Active confirmed 75489880 Problem Screening mammography declined Z53.20 Active confir med 890346978 Problem Intervertebral disc disorders with radiculopathy , lumbar region M51.16 Active confirmed 032646389854499 Problem Intermittent palpitations R00.2 Active confirmed 826277151 Problem Radiculopathy, thoracic region M54.14 Active confir med 60926028 Problem Sacroiliitis, not elsewhere classified M46.1 A ctive confirmed 206052270 Problem Protrusion of thoracic intervertebral disc M51.24 Active confirmed 15719800 Problem Spondylosis without myelopathy or radiculopathy, 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 Active confirmed 537174822 Problem Disc displacement, thoracic M51.24 Active confirmed 44738026 Problem Spinal cord stimulator status Z96.89 Active confirm ed 399005814 Incident after MRI ALLERGIES Allergen (clinical drug ingredient) Drug/Non Drug Allergy do cumented on EMR Reaction Allergy Type Onset Date Status Penicillin (For Allergies Use Only) severe yeast infection Drug Allergy Active amoxicillin Amoxicillin(NDC Code:[address]-33) severe yeast infection Drug Allergy Active aspirin Aspirin(ND Code:[address]-85) swelling Drug Allergy Active gabapentin Gabapentin(ND Code:[address]-81) "felt yucky" Drug Aller gy Active pregabalin Lyrica(ND Code:[address]-96) [place] yucky" Drug Allergy Active ENCOUNTERS from 1976 to 2021-01-12 Encounter Location Date Provider Diagnosis [facility] [address] Floor [phone] [place] [address] Dec, Marvin Garcias Lumbar post-laminect geovanni syndrome M96.1 [...] School Language: Question Answer Notes Languages spoken: Syriac Evangelical: Question Answer Notes Evangelical 33 None No bahai beliefs that would [...] REASON FOR REFERRAL No Information VITAL SIGNS Weight 122.0 lbs Dec, Weight-kg 55.34 kg Dec, Height 64 in Dec, BMI 20.94 kg/m2 Dec, Heart Rate 70 /min Dec, Respiratory Rate 18 /min Dec, Temperature 99.0 degrees Fahrenheit Dec, Oximetry 98% Dec, Blood pressure systolic 132 mm Hg Dec, Blood pressure diastolic 71 mm Hg Dec, MEDICATIONS Medication SIG (Take, Route, Frequency, Duration) [...] sure if she is going to May, Not-[place] ng PriLOSEC as directed Orally if needed for heartburn Active PROCEDURES No Information RESULTS No Results REASON FOR VISIT INCREASED PAIN DCS MEDICAL (GENERAL) HISTORY Type Description Date Medical History chronic back pain Medical History EMG shows mild, chronic L S1 and possibly L5 radiculopathy; mild chronic R L5 radiculopathy (08/2015) Medical History DCS Medical History LEGS PAIN Surgical History laminectomy 1997 Surgical History back surgery again 1998 Surgical History diagnostic laparascopy with endometriosi s ablation ([place]) 2003 (?) Surgical History DCS 06/26/17 Surgical [...] Notes Treatment Notes Treatm ent Clinical Notes Dec, Lumbar post-laminectomy syndrome (ICD-10 - M96.1) Status post spinal column stimulator, status post MRI with consequence upper extremity pain I discussed alternatives with Ms. Chamberlain. I will discuss this case with the spine surgeon to consider removing the device. We can set up monitors for her extremities and we can do it with the patient awake. She is still waiting for her appointment with neurology. For now, we will continue with the medications. She will follow up with me in 6 weeks. She will call if she needs to be seen sooner. The total time for this visit was 20 minutes. The patient reports understanding and agrees with the plan. I, Cindy Pappas, documented the above information acting as a scribe for Dr. Garcias. I have reviewed the above document, written by Cindy Pappas, medical social worker, and I verify that it is accurate. PLAN OF TREATMENT Treatment Notes Assessment Notes Clinical Notes Lumbar post-laminectomy syndrome I discu ssed alternatives with Ms. Chamberlain. I will discuss this case with the spine surgeon to consider removing the device. We can set up monitors for her extremities and we can do it with the patient ewa fuller. She is still waiting for her appointment with neurology. For now, we will continue with the medications. She will follow up with me in 6 weeks. She will call if she needs to be seen sooner. The total time for this visit was 20 minutes. The patient reports understanding and agrees with the plan. I, Cindy Pappas, documented the above information acting as a scribe for Dr. Garcias. I have reviewed the above document, written by Cindy Pappas, medical social worker, and I verify that it is accurate. Next Appt Details Already booked Reason:Follow up with DCS Provider Name:Marvin Garcias, 2021-02-25 02:45:00 PM, [address] [place] [address], , [place], [address], Provider Name:Marvin Garcias, 2021-03-31 02:45:00 PM, [address], , [place], [address], Follow Up:Already bookedFollow up with DCS Insurance Providers Payer Name Payer Address Payer Phone Insured Name Patient Relati onship to Insured Coverage Start Date Coverage End Date [facility] [address] [facility] [phone] SAEED CHAMBERLAIN
--- OUTSIDE RECORDS SUMMARY | 2021-03-15 10:08 | CCD | Continuity of Care Document ---
Author Charmaine Michaels M.D. Organization Unknown Address [address] [place] [address] Phone [phone] Care Team Providers Care Carpenter Assistant Installer Name Role Phone Marvin Talbot M.D. AUTM [phone] Stephanie Gamboa DO AUTM [phone] Problems Active Problems Provider Date Hand pain [...] Information Available Procedures Date Code Description Status 02/09/2021 93692 Nerve Conduction 13+ Studies Com pleted 02/09/2021 96792 Needle Electromyogra phy Non Extremity Done With Nerve Conduction Completed 02/09/2021 14108 Needle Electromyogra phy Non Extremity Done With Nerve Conduction Completed 02/09/2021 61094 Needle Electromyography Complete , Five Or More Muscles Studied Completed 02/09/2021 26696 Needle Electromyography Complete , Five Or More Muscles Studied Completed 02/04/2021 14680 Nerve Conduction 13+ Studies Com pleted 02/04/2021 96718 Needle Electromyography Complete , Five Or More Muscles Studied Completed 02/04/2021 27653 Needle Electromyography Complete , Five Or More Muscles Studied Completed 01/26/2021 73074 Office/Outpatient New Moderate M DM 45-59 Minutes Completed Medical Devices Description No Information Available Encounters Type Date Location Provider Dx Diagnosis Office Visit 01/26/2021 10:45a [facility] office - [place] Jessica Adalid , M.DElayne M79.609 Pain in unspecified limb M47.892 Other spondylosis, cervical region M62.9 Disorder of muscle, unspecif ied Assessments Date Code Description Provider 02/09/2021 G56.00 Carpal tunnel syndrome, unspecif ied [...] M62.9 Disorder of muscle, unspecified Jessica Adalid, M.DElayne Plan of Treatment Future Appointment(s):* 02/26/2021 10:30 am - Kaur Edwards P.A.-C. at [facility] office - [place] Functional Status Description No Information Available Mental Status Description No Information Available Referrals Description No Information Available
--- OUTSIDE RECORDS SUMMARY | 2021-03-15 10:08 | CCD | Continuity of Care Document ---
Author Author Charmaine CORDOBA M.D. Organization Unknown Address [address] [place] [address] Phone [phone] Care Team Providers Care Event Executive Name Role Phone Marvin Talbot M.D. AUTM [phone] Stephanie Gamboa DO AUTM [phone] Problems Description No Information Available Social History Type Date Description Comments Sex Unknown Allergies, Adverse Reactions, Alerts Description No Information Available Medications Description No Information Available Immunizations Description No Information Available Vital Signs Description No Information Available Results Description No Information Available Procedures Description No Information Available Medical Devices Description No Information Available Encounters Description No Information Available Assessments Description No Information Available Plan of Treatment Future Appointment(s):* 02/26/2021 10:30 am - Kaur Edwards P.A.-C. at [facility] * 02/04/2021 11:00 am - Laura Cordoba M.D. at [facility] * 01/29/2021 11:00 am - Laura Cordoba M.D. at [facility] Functional Status Description No Information Available Mental Status Description No Information Available Referrals Description No Information Available
--- OUTSIDE RECORDS SUMMARY | 2021-03-15 10:08 | CCD | Continuity of Care Document ---
Author Author Charmaine CORDOBA M.D. Organization Unknown Address [address] [place] [address] Phone [phone] Care Team Providers Care Snowmaker Name Role Phone Marvin Talbot M.D. AUTM [phone] Stephanie Gamboa DO AUTM [phone] Problems Active Problems Provider Date Hand pain [...] Information Available Procedures Date Code Description Status 02/04/2021 77589 Nerve Conduction 13+ Studies Com pleted 02/04/2021 91147 Needle Electromyography Complete , Five Or More Muscles Studied Completed 02/04/2021 25103 Needle Electromyography Complete , Five Or More Muscles Studied Completed 01/26/2021 97841 Office/Outpatient New Moderate M DM 45-59 Minutes Completed Medical Devices Description No Information Available Encounters Type Date Location Provider Dx Diagnosis Office Visit 01/26/2021 10:[place]a [place] M79.609 Pain in unspecified limb M47.892 Other spondylosis, cervical region M62.9 Disorder of muscle, unspecif ied Assessments Date Code Description Provider 02/04/2021 M54.59 Other low back pain Laura Adalid, M.DElayne 02/04/2021 M54.16 Radiculopathy, lumbar region Abd ul Adalid, M.D. 02/04/2021 R20.2 Paresthesia of skin Laura Adalid, M.D. 02/04/2021 G43.901 Migraine, unspecifie d, not intractable, with status migrainosus Laura Adalid, M.D. 01/26/2021 M79.609 Pain in unspecified limb Jessica Adalid, M.DElayne 01/26/2021 M47.892 Other spondylosis, cervical rogelio on Jessica Adalid, M.DElayne 01/26/2021 M62.9 Disorder of muscle, unspecified Jessica Cordoba M.D. Plan of Treatment Future Appointment(s):* 02/26/2021 10:30 lizz - Kaur Edwards P.A.-C. at Main office - [place] Functional Status Description No Information Available Mental Status Description No Information Available Referrals Description No Information Available
--- OUTSIDE RECORDS SUMMARY | 2021-03-15 10:08 | CCD ---
Author Author [facility] Organization [facility] Address Unknown Phone Unavailable Care Team Providers Care Bioinformatics Research Technician Name Role Phone Stephanie Gamboa Unavailable PROBLEMS Type Condition ICD9-CM Code [id number] Code Onset Dates Condition S tatus W/U Status Risk SNOMED Code Notes Problem Lumbar radiculopathy, chronic M54.16 Active confirm ed 787347140 Problem Postlaminectomy syndrome, not elsewhere classified M96.1 Active confirmed 14215179 Problem Dry eyes, bilateral H04.123 Active confirmed 600181797 Problem Tobacco dependence F17.200 Active confirmed 59851919 Problem Spondylosis of lumbar region without myelopathy or radiculopathy M47.816 Active confirmed 51113729 Problem Chronic low back pain with left-sided sciatica M54 .42 Active confirmed 15538134 Problem Chronic prescription opiate use Z79.891 Active confirmed 634299968 Problem Abnormal vaginal bleeding N93.9 Active confirmed 363890418 Problem Other fatigue R53.83 Active confirmed 778067 01 Problem Abnormal uterine bleeding N93.9 Active confirmed 09714624058236 Problem Thrush, oral B37.0 Active confirmed 3046238 0 Problem Spondylosis of lumbosacral region without myelop athy or radiculopathy M47.817 Active confirmed 70228328 Problem Intervertebral disc disorder with radiculopathy of lumbosacral region M51.17 Active confirmed 43516235 Problem Dry eyes H04.123 Active confirmed 467522181 Problem Lumbar post-laminectomy syndrome M96.1 Active conf irmed 846024957 Status post spinal column stimulator Problem Myalgia, other site M79.18 Active confirmed 33163535 Problem Screening mammography declined Z53.20 Active confir med 148786736 Problem Intervertebral disc disorders with radiculopathy , lumbar region M51.16 Active confirmed 466001094814462 Problem Intermittent palpitations R00.2 Active confirmed 683028893 Problem Radiculopathy, thoracic region M54.14 Active confir med 21850607 Problem Sacroiliitis, not elsewhere classified M46.1 A ctive confirmed 711041621 Problem Protrusion of thoracic intervertebral disc M51.24 Active confirmed 10515034 Problem Spondylosis without myelopathy or radiculopathy, 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 Active confirmed 179225239 Problem Disc displacement, thoracic M51.24 Active confirmed 35554106 Problem Spinal cord stimulator status Z96.89 Active confirm ed 430307530 Incident after MRI ALLERGIES Allergen (clinical drug ingredient) Drug/Non Drug Allergy do cumented on EMR Reaction Allergy Type Onset Date Status Penicillin (For Allergies Use Only) severe yeast infection Drug Allergy Active amoxicillin Amoxicillin(NDC Code:[address]-14) severe yeast infection Drug Allergy Active aspirin Aspirin(ND Code:[address]-51) swelling Drug Allergy Active gabapentin Gabapentin(NDC Code:[address]-84) "felt yucky" Drug Aller gy Active pregabalin Lyrica(NDC Code:[address]-68) [place] yucky" Drug Allergy Active ENCOUNTERS from 1976 to 2021-01-07 Encounter Location Date Provider Diagnosis [facility] Resident [address] [facility] [phone] [place] [address] Dec, Stephanie Gamboa IMMUNIZATIONS Vaccine Route Administration Date Status Influenza 6mo & up Fluzone IM Intramuscular Mar 01, 2016 Admi nistered SOCIAL HISTORY Tobacco Use: Social History Observation Description Date Details (start date - stop date) Current Smoker Sex Assigned At : Social History Observation Description Sex Assigned At Unknown Education: Question Answer Notes Level of Education: High School Language: Question Answer Notes Languages spoken: Irish Yazdanism: Question Answer Notes Yazdanism 33 None No pentecostal beliefs that would impact health care. Sexual [...] Information RESULTS No Results REASON FOR VISIT no showed MEDICAL (GENERAL) HISTORY Type Description Date Medical [...] recent 1996) Surgical History dorsal colum stimulator 2018 Hospitalization History surgeries Hospitalization History Pneumothorax Hospitalization [...] Details Provider Name:Marvin Garcias, 2021-02-25 02:45:00 PM, [address] [place] [address], , [place], [address], Provider Name:Marvin Garcias, 2021-03-31 02:45:00 PM, [address], , [place], [address], Insurance Providers Payer Name Payer Address Payer Phone Insured Name Patient Relati onship to Insured Coverage Start Date Coverage End Date [facility] [address] [facility] [phone] SAEED MCLEOD
--- OUTSIDE RECORDS SUMMARY | 2021-03-15 10:08 | CCD | Continuity of Care Document ---
Author Author Charmaine EDWARDS P.A.-C. Organization Unknown Address [address] [place] [address] Phone [phone] Care Team Providers Care Debt Recovery Officer Name Role Phone Marvin Talbot M.D. AUTM [phone] Stephanie Gamboa DO AUTM [phone] Problems Active Problems Provider Date Hand pain Laura Cordoba M.D. Onset: 02/05/2021 Numbness of hand Luara Cordoba M.D. Onset: 02/05/2021 Carpal tunnel syndrome [...] Information Available Procedures Date Code Description Status 02/26/2021 74801 Office/Outpatient Established Mo d MDM 30-39 Min Completed 02/09/2021 61094 Nerve Conduction 13+ Studies Com pleted 02/09/2021 39964 Needle Electromyogra phy Non Extremity Done With Nerve Conduction Completed 02/09/2021 78754 Needle Electromyogra phy Non Extremity Done With Nerve Conduction Completed 02/09/2021 77593 Needle Electromyography Complete , Five Or More Muscles Studied Completed 02/09/2021 00850 Needle Electromyography Complete , Five Or More Muscles Studied Completed 02/04/2021 49918 Nerve Conduction 13+ Studies Com pleted 02/04/2021 19090 Needle Electromyography Complete , Five Or More Muscles Studied Completed 02/04/2021 64601 Needle Electromyography Complete , Five Or More Muscles Studied Completed 01/26/2021 15967 Office/Outpatient New Moderate M DM 45-59 Minutes Completed Medical Devices Description No Information Available Encounters Type Date Location Provider Dx Diagnosis Office Visit 02/26/2021 10:30a Main office - [place] Amado Randolph.A.-C. M54.2 Cervicalgia M54.12 Radiculopathy, cervical rogelio on M54.50 Low back pain, unspecified R20.2 Paresthesia of skin Office Visit 01/26/2021 10:45a Main office - [place] Jessica Clarita Cordoba M79.609 Pain in unspecified limb M47.892 Other spondylosis, cervical region M62.9 Disorder of muscle, unspecif ied Assessments Date Code Description Provider 02/26/2021 M54.2 Cervicalgia Amado Mcbride.A.-C. 02/26/2021 M54.12 Radiculopathy, cervical region L sb [...] d, not intractable, with status migrainosus Laura Cordoba M.D. 01/26/2021 M79.609 Pain in unspecified limb Jessica Cordoba, M.DElayne 01/26/2021 M47.892 Other spondylosis, cervical rogelio on Jessica Adalid, M.DElayne 01/26/2021 M62.9 Disorder of muscle, unspecified Jessica Cordoba M.D. Plan of Treatment Future Appointment(s):* 04/28/2021 1:00 pm - Kaur Edwards P.A.-C. at Main office [facility] 02/26/2021 - Kaur Edwards P.A.-C.* M54.2 Cervicalgia * M54.12 Radiculopathy, cervical region * M54.50 Low back pain, unspecified * R20.2 Paresthesia of skin Functional Status Description No Information Available Mental Status Description No Information Available Referrals Description No Information Available
--- OUTSIDE RECORDS SUMMARY | 2021-03-15 10:08 | CCD | Continuity of Care Document ---
Author Author Charmaine WHALEN DO Organization Unknown Address [address] [place] [address] [place] [address] Phone [phone] Care Team Providers Care Director Of Music Name Role Phone AUTM Unavailable Marvin Talbot MD AUTM [phone] Stephanie Gamboa D.O. AUTM [phone] Problems Description No Information Available Social History [...] lb BMI (Body Mass Index) 20.4 kg/m2 Sabael Body Weight 120 lb Weight 53.978 kg BSA (Body Surface Area) 1.57 m2 Results Description No Information Available Procedures Date Code Description Status 01/01/2021 18853 Office/Outpatient New Low MDM 30 -44 Minutes Completed Medical Devices Description No Information Available Encounters Type Date Location Provider Dx Diagnosis Office Visit 01/01/2021 2:00p [facility] Uli Whalen DO M54.5 Low back pain M96.1 Postlaminectomy syndrome, no t elsewhere classified Z96.82 Presence of neurostimulator Assessments Date Code Description Provider 01/01/2021 M54.5 Low back pain Paul Lew Opaljose hickman, DO 01/01/2021 M96.1 Postlaminectomy syndrome, not el sewhere classified Paul LewMichaelDO 01/01/2021 Z96.82 Presence of neurostimulator Michael Whalen DO Plan of Treatment 01/01/2021 - Michael Whalen, * M54.5 Low back pain * M96.1 Postlaminectomy syndrome, not elsewhere classified* Comments:* Patient here for surgical consultation removal of spinal cord stimulator.History as per patient. I have discussed the risk and benefits of any surgery.I need a clear indication for surgical removal of spinal cord stimulator given the inherent risk of any spinal surgery. At this point the history she gives does not give me a clear indication for spinal cord stimulator removal.I have asked her to follow-up with her pain management physician who implanted the device. Asked for clear communication about the indications for any surgery or MRI. * Z96.82 Presence of neurostimulator Functional Status Description No Information Available Mental Status Description No Information Available Referrals Description No Information Available
--- OUTSIDE RECORDS SUMMARY | 2021-03-15 10:08 | CCD ---
Author Author [facility] Organization [facility] Address Unknown Phone Unavailable Care Team Providers Care Technology Manager Name Role Phone Marvin Garcias Unavailable PROBLEMS Type Condition ICD9-CM Code [id number] Code Onset Dates Condition S tatus W/U Status Risk SNOMED Code Notes Problem Lumbar radiculopathy, chronic M54.16 Active confirm ed 036802669 Problem Postlaminectomy syndrome, not elsewhere classified M96.1 Active confirmed 05503172 Problem Dry eyes, bilateral H04.123 Active confirmed 056794287 Problem Tobacco dependence F17.200 Active confirmed 01453209 Problem Spondylosis of lumbar region without myelopathy or radiculopathy M47.816 Active confirmed 66356617 Problem Chronic low back pain with left-sided sciatica M54 .42 Active confirmed 26275979 Problem Chronic prescription opiate use Z79.891 Active confirmed 365644325 Problem Abnormal vaginal bleeding N93.9 Active confirmed 192832367 Problem Other fatigue R53.83 Active confirmed 811483 01 Problem Abnormal uterine bleeding N93.9 Active confirmed 79251120647910 Problem Thrush, oral B37.0 Active confirmed 5872964 0 Problem Spondylosis of lumbosacral region without myelop athy or radiculopathy M47.817 Active confirmed 83740906 Problem Intervertebral disc disorder with radiculopathy of lumbosacral region M51.17 Active confirmed 78353709 Problem Dry eyes H04.123 Active confirmed 534565970 Problem Lumbar post-laminectomy syndrome M96.1 Active conf irmed 199600149 Status post spinal column stimulator, status post MRI with consequence upper extremity pain Problem Myalgia, other site M79.18 Active confirmed 97785352 Problem Screening mammography declined Z53.20 Active confir med 398249812 Problem Intervertebral disc disorders with radiculopathy , lumbar region M51.16 Active confirmed 729494253739516 Problem Intermittent palpitations R00.2 Active confirmed 331622213 Problem Radiculopathy, thoracic region M54.14 Active confir med 22417769 Problem Sacroiliitis, not elsewhere classified M46.1 A ctive confirmed 605843220 Problem Protrusion of thoracic intervertebral disc M51.24 Active confirmed 95764616 Problem Spondylosis without myelopathy or radiculopathy, 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 Active confirmed 234278815 Problem Disc displacement, thoracic M51.24 Active confirmed 97882117 Problem Spinal cord stimulator status Z96.89 Active confirm ed 095512579 Incident after MRI ALLERGIES Allergen (clinical drug ingredient) Drug/Non Drug Allergy do cumented on EMR Reaction Allergy Type Onset Date Status Penicillin (For Allergies Use Only) severe yeast infection Drug Allergy Active amoxicillin Amoxicillin(NDC Code:[address]-43) severe yeast infection Drug Allergy Active aspirin Aspirin(ND Code:[address]-23) swelling Drug Allergy Active gabapentin Gabapentin(ND Code:[address]-41) "felt yucky" Drug Aller gy Active pregabalin Lyrica(ND Code:[address]-09) [place] yucky" Drug Allergy Active ENCOUNTERS from 1976 to 2021-01-28 Encounter Location Date Provider Diagnosis [facility] [address] Floor [phone] [place] [address] Dec, Marvin Garcias IMMUNIZATIONS Vaccine Route Administration [...] School Language: Question Answer Notes Languages spoken: Telugu Evangelical: Question Answer Notes Evangelical 33 None No gnosticism beliefs that would impact health care. Sexual [...] Information RESULTS No Results REASON FOR VISIT risk managment following case MEDICAL (GENERAL) HISTORY Type Description Date Medical [...] Details Provider Name:Marvin Garcias, 2021-02-25 02:45:00 PM, [address] [place] [address], , [place], [address], Provider Name:Marvin Garcias, 2021-03-15 09:00:00 AM, [address] [place] [address], , [place], [address], Provider Name:Marvin Garcias, 2021-03-31 02:45:00 PM, [address] [place] [address], , [place], [address], Insurance Providers Payer Name Payer Address Payer Phone Insured Name Patient Relati onship to Insured Coverage Start Date Coverage End Date [facility] [id number] [facility] [phone] SAEED MCLEOD
--- OUTSIDE RECORDS SUMMARY | 2021-03-15 10:08 | CCD | Continuity of Care Document ---
Author Author Charmaine CORDOBA M.D. Organization Unknown Address [address] [place] [address] Phone [phone] Care Team Providers Care Elementary School Registrar Name Role Phone Marvin Talbot M.D. AUTM [phone] Stephanie Gamboa DO AUTM [phone] Problems Description No Information Available Social History Type Date Description Comments Sex Unknown Allergies and adverse reactions Description No Information Available Medications Description No Information Available Immunizations Description No Information Available Vital Signs Description No Information Available Results Description No Information Available Procedures Date Code Description Status 02/04/2021 16340 Nerve Conduction 13+ Studies Com pleted 02/04/2021 21828 Needle Electromyography Complete , Five Or More Muscles Studied Completed 02/04/2021 81393 Needle Electromyography Complete , Five Or More Muscles Studied Completed 01/26/2021 10560 Office/Outpatient New Moderate M DM 45-59 Minutes Completed Medical Devices Description No Information Available Encounters Type Date Location Provider Dx Diagnosis Office Visit 01/26/2021 10:45a Main office - [place] Jessica Cordoba M.D. M79.609 Pain in unspecified limb M47.892 Other spondylosis, cervical region M62.9 Disorder of muscle, unspecif ied Assessments Date Code Description Provider 02/04/2021 M54.59 Other low back pain Laura Cordoba M.D. 02/04/2021 M54.16 Radiculopathy, lumbar region Jewel Cordoba M.D. 02/04/2021 R20.2 Paresthesia of skin Laura Cordoba M.D. 02/04/2021 G43.901 Migraine, unspecifie d, not intractable, with status migrainosus Laura Cordoba M.D. 01/26/2021 M79.609 Pain in unspecified limb Jessica Cordoba M.D. 01/26/2021 M47.892 Other spondylosis, cervical rogelio on Jessica Cordoba M.D. 01/26/2021 M62.9 Disorder of muscle, unspecified Jessica Cordoba M.D. Plan of Treatment Future Appointment(s):* 02/09/2021 9:30 am - Laura Cordoba M.D. at [facility] * 02/26/2021 10:30 am - Kaur Edwards P.A.-C. at [facility] Functional Status Description No Information Available Mental Status Description No Information Available Referrals Description No Information Available
--- OUTSIDE RECORDS SUMMARY | 2021-03-15 10:08 | CCD | Continuity of Care Document ---
Author Author Charmaine CORDOBA M.D. Organization Unknown Address [address] [place] [address] Phone [phone] Care Team Providers Care Group Rooms Coordinator Name Role Phone Marvin Talbot M.D. AUTM [phone] Stephanie Gamboa DO AUTM [phone] Problems Description No Information Available Social History Type Date Description Comments Sex Unknown Allergies and adverse reactions Description No Information Available Medications Description No Information Available Immunizations Description No Information Available Vital Signs Description No Information Available Results Description No Information Available Procedures Date Code Description Status 02/04/2021 85685 Nerve Conduction 13+ Studies Com pleted 02/04/2021 79119 Needle Electromyography Complete , Five Or More Muscles Studied Completed 02/04/2021 24589 Needle Electromyography Complete , Five Or More Muscles Studied Completed 01/26/2021 78982 Office/Outpatient New Moderate M DM 45-59 Minutes Completed Medical Devices Description No Information Available Encounters Type Date Location Provider Dx Diagnosis Office Visit 01/26/2021 10:45a Main office - [place] Jessica Cordoba M.D. M79.609 Pain in unspecified limb M47.892 Other spondylosis, cervical region M62.9 Disorder of muscle, unspecif ied Assessments Date Code Description Provider 02/04/2021 M54.59 Other low back pain Laura Cordoba M.D. 02/04/2021 M54.16 Radiculopathy, lumbar region Jewel Cordoba M.D. 02/04/2021 R20.2 Paresthesia of skin Larua Cordoba M.D. 02/04/2021 G43.901 Migraine, unspecifie d, not intractable, with status migrainosus Laura Cordoba M.D. 01/26/2021 M79.609 Pain in unspecified limb Jessica Cordoba M.D. 01/26/2021 M47.892 Other spondylosis, cervical rogelio on Jessica Cordoba M.D. 01/26/2021 M62.9 Disorder of muscle, unspecified Jessica Cordoba M.D. Plan of Treatment Future Appointment(s):* 02/09/2021 9:30 am - Laura Cordoba M.D. at [facility] * 02/26/2021 10:30 am - Kaur Edwards P.A.-C. at [facility] Functional Status Description No Information Available Mental Status Description No Information Available Referrals Description No Information Available
--- OUTSIDE RECORDS SUMMARY | 2021-03-15 10:08 | CCD | Continuity of Care Document ---
Author Author Charmaine EDWARDS P.A.-C. Organization Unknown Address [address] [place] [address] Phone [phone] Care Team Providers Care Animal Husbandry Manager Name Role Phone Marvin Talbot M.D. AUTM [phone] Stephanie Gamboa DO AUTM [phone] Problems Active Problems Provider Date Hand pain [...] 84 /min Respiratory Rate 16 /min Results Description No Information Available Procedures Date Code Description Status 02/26/2021 17087 Office/Outpatient Established Mo d MDM 30-39 Min Completed 02/09/2021 48864 Nerve Conduction 13+ Studies Com pleted 02/09/2021 42921 Needle Electromyogra phy Non Extremity Done With Nerve Conduction Completed 02/09/2021 68060 Needle Electromyogra phy Non Extremity Done With Nerve Conduction Completed 02/09/2021 72660 Needle Electromyography Complete , Five Or More Muscles Studied Completed 02/09/2021 06979 Needle Electromyography Complete , Five Or More Muscles Studied Completed 02/04/2021 47881 Nerve Conduction 13+ Studies Com pleted 02/04/2021 43446 Needle Electromyography Complete , Five Or More Muscles Studied Completed 02/04/2021 45406 Needle Electromyography Complete , Five Or More Muscles Studied Completed 01/26/2021 71265 Office/Outpatient New Moderate M DM 45-59 Minutes Completed Medical Devices Description No Information Available Encounters Type Date Location Provider Dx Diagnosis Office Visit 02/26/2021 10:30a Main office - [place] Amado Randolph.A.-C. M54.2 Cervicalgia M54.12 Radiculopathy, cervical rogelio on M54.50 Low back pain, unspecified R20.2 Paresthesia of skin Office Visit 01/26/2021 10:45a [place] - [place] Cord[place] M.[place]. M79.609 Pain in unspecified limb M47.892 Other spondylosis, cervical region M62.9 Disorder of muscle, unspecif ied Assessments Date Code Description Provider 02/26/2021 M54.2 Cervicalgia Amado Mcbride.A.-C. 02/26/2021 M54.12 Radiculopathy, cervical region L sb Amado Hendricks.A.-C. 02/26/2021 M54.50 Low back pain, unspecified Amado Mcbride.A.-C. 02/26/2021 R20.2 Paresthesia of skin Amado Randolph.A.-C. 02/09/2021 G56.00 Carpal tunnel syndrome, unspecif ied upper limb Laura Adalid, M.DElayne 02/09/2021 M54.12 Radiculopathy, cervical region A bdul Adalid, M.DElayne 02/09/2021 M54.2 Cervicalgia Laura Adalid, M.D Elayne 02/09/2021 R20.2 Paresthesia of skin Laura Adalid, M.DElayne 02/09/2021 M25.519 Pain in unspecified shoulder Abd ul Adalid, M.DElayne 02/04/2021 M54.59 Other low back pain Laura Adalid, M.DElayne 02/04/2021 M54.16 Radiculopathy, lumbar region Abd ul Adalid, M.D. 02/04/2021 R20.2 Paresthesia of skin Luara Adalid, M.D. 02/04/2021 G43.901 Migraine, unspecifie d, not intractable, with status migrainosus Laura Adalid, M.D. 01/26/2021 M79.609 Pain in unspecified limb Jessica Adalid, M.D. 01/26/2021 M47.892 Other spondylosis, cervical rogelio on Jessica Adalid, M.D. 01/26/2021 M62.9 Disorder of muscle, unspecified Jessica Adalid, M.D. Plan of Treatment Future Appointment(s):* 04/28/2021 1:00 pm - Kaur Edwards P.A.-C. at Main office [facility] [place] 02/26/2021 - Kaur Edwards P.A.-C.* M54.2 Cervicalgia* [...]
--- OUTSIDE RECORDS SUMMARY | 2021-03-15 10:08 | CCD | Continuity of Care Document ---
Author Author Charmaine EDWARDS P.A.-C. Organization Unknown Address [address] [place] [address] Phone [phone] Care Team Providers Care Box Car Checker Name Role Phone Marvin Talbot M.D. AUTM Stephanie Gamboa DO AUTM [phone] Problems Active Problems Provider Date Hand pain [...] Available Procedures Date Code Description Status 02/26/2021 69793 Office/Outpatient Established Mo d MDM 30-39 Min Completed 02/09/2021 96849 Nerve Conduction 13+ Studies Com pleted 02/09/2021 49689 Needle Electromyogra phy Non Extremity Done With Nerve Conduction Completed 02/09/2021 23096 Needle Electromyogra phy Non Extremity Done With Nerve Conduction Completed 02/09/2021 25107 Needle Electromyography Complete , Five Or More Muscles Studied Completed 02/09/2021 24095 Needle Electromyography Complete , Five Or More Muscles Studied Completed 02/04/2021 64124 Nerve Conduction 13+ Studies Com pleted 02/04/2021 96147 Needle Electromyography Complete , Five Or More Muscles Studied Completed 02/04/2021 57513 Needle Electromyography Complete , Five Or More Muscles Studied Completed 01/26/2021 18839 Office/Outpatient New Moderate M DM 45-59 Minutes Completed Medical Devices Description No Information Available Encounters Type Date Location Provider Dx Diagnosis Office Visit 02/26/2021 10:30a Main office - [place] Amado Randolph.A.-C. M54.2 Cervicalgia M54.12 Radiculopathy, cervical rogelio on M54.50 Low back pain, unspecified R20.2 Paresthesia of skin Office Visit 01/26/2021 10:45a Main office - [place] Jessica Clarita Cordoba M79.609 Pain in unspecified [...] [place] 02/26/2021 - Kaur Edwards P.A.-C.* M54.2 Cervicalgia * M54.12 Radiculopathy, cervical region * M54.50 Low back pain, unspecified * R20.2 Paresthesia of skin Functional Status Description No Information Available Mental Status Description No Information Available Referrals Description No Information Available
--- OUTSIDE RECORDS SUMMARY | 2021-03-15 10:08 | CCD | Continuity of Care Document ---
Author Author Charmaine CORDOBA M.D. Organization Unknown Address [address] [place] [id number] Phone [phone] Care Team Providers Care Business Office Specialist Name Role Phone Marvin Talbot M.D. AUTM [phone] Stephanie Gamboa DO AUTM [phone] Problems Active Problems Provider Date Hand pain [...] Available Procedures Date Code Description Status 02/04/2021 03160 Nerve Conduction 13+ Studies Com pleted 02/04/2021 42288 Needle Electromyography Complete , Five Or More Muscles Studied Completed 02/04/2021 57387 Needle Electromyography Complete , Five Or More Muscles Studied Completed 01/26/2021 09524 Office/Outpatient New Moderate M DM 45-59 Minutes Completed Medical Devices Description No Information Available Encounters Type Date Location Provider Dx Diagnosis Office Visit 01/26/2021 10:[place] M79.609 Pain in unspecified limb M47.892 Other spondylosis, cervical region M62.9 Disorder of muscle, unspecif ied Assessments Date Code Description Provider 02/04/2021 M54.59 Other low back pain Laura AdalidNavDElayne 02/04/2021 M54.16 Radiculopathy, lumbar region Abd ul Adalid, M.DElayne 02/04/2021 R20.2 Paresthesia of skin Laura Adalid, M.DElayne 02/04/2021 G43.901 Migraine, unspecifie d, not intractable, with status migrainosus Laurapreethi Cordoba, M.DElayne 01/26/2021 M79.609 Pain in unspecified limb Jessica Adalid, Liliya.DElayne 01/26/2021 M47.892 Other spondylosis, cervical rogelio on Jessica Adalid, M.DElayne 01/26/2021 M62.9 Disorder of muscle, unspecified Jessica Cordoba M.D. Plan of Treatment Future Appointment(s):* 02/09/2021 9:30 am - Laura Cordoba M.D. at [facility] * 02/26/2021 10:30 am - Kaur Edwards P.A.-C. at [facility] Functional Status Description No Information Available Mental Status Description No Information Available Referrals Description No Information Available
--- OUTSIDE RECORDS SUMMARY | 2021-03-15 10:10 | CCD ---
Author Author [facility] Organization [facility] Address Unknown Phone Unavailable Care Team Providers Care Navy Diver Name Role Phone Gamboa, S Stephanie DO Unavailable Unavailable Gamboa, S Stephanie DO Unavailable Unavailable Gamboa, S Stephanie DO Unavailable Unavailable Gamboa, S Stephanie DO Unavailable Unavailable Gamboa, S Stephanie DO Unavailable Unavailable Gamboa, S Stephanie DO Unavailable Unavailable Gamboa, S Stephanie DO Unavailable Unavailable Gamboa, S Stephanie DO Unavailable Unavailable Gamboa, S Stephanie DO Unavailable Unavailable Gamboa, S Stephanie DO Unavailable Unavailable Gamboa, S Stephanie DO Unavailable Unavailable Gamboa, S Stephanie DO Unavailable Unavailable Gamboa, S Stephanie DO Unavailable Unavailable Gamboa, S Stephanie DO Unavailable Unavailable ERIC BLANCO MD Unavailable Unavailable ERIC BLANCO MD Unavailable Unavailable ERIC BLANCO MD Unavailable Unavailable ERIC BLANCO MD Unavailable Unavailable ERIC BLANCO MD Unavailable Unavailable ERIC BLANCO MD Unavailable Unavailable ERIC BLANCO MD Unavailable Unavailable ERIC BLANCO MD Unavailable Unavailable FRANCIS, ERIC PERALTA Unavailable Unavailable FRANCIS, ERIC PERALTA Unavailable Unavailable FRANCIS, ERIC MD Unavailable Unavailable FRANCIS, ERIC MD Unavailable Unavailable FRANCIS, ERIC MD Unavailable Unavailable FRANCIS, ERIC MD Unavailable Unavailable FRANCIS, ERIC MD Unavailable Unavailable FRANCIS, ERIC MD Unavailable Unavailable FRANCIS, ERIC MD Unavailable Unavailable FRANCIS, ERIC MD Unavailable Unavailable FRANCIS, ERIC MD Unavailable Unavailable FRANCSI, ERIC MD Unavailable Unavailable FRANCIS, ERIC MD Unavailable Unavailable FRANCIS, ERIC MD Unavailable Unavailable FRANCIS, ERIC MD Unavailable Unavailable FRANCIS, ERIC MD Unavailable Unavailable FRANCIS, ERIC MD Unavailable Unavailable FRANCIS, ERIC MD Unavailable Unavailable FRANCIS, ERIC MD Unavailable Unavailable FRANCIS, ERIC MD Unavailable Unavailable FRANCIS, ERIC MD Unavailable Unavailable FRANCIS, ERIC MD Unavailable Unavailable FRANCIS, ERIC MD Unavailable Unavailable FRANCIS, ERIC MD Unavailable Unavailable FRANCIS, ERIC MD Unavailable Unavailable FRANCIS, ERIC MD Unavailable Unavailable FRANCIS, ERIC MD Unavailable Unavailable FRANCIS, ERIC MD Unavailable Unavailable FRANCIS, ERIC MD Unavailable Unavailable FRANCIS, ERIC MD Unavailable Unavailable FRANCIS, ERIC MD Unavailable Unavailable FRANCIS, ERIC MD Unavailable Unavailable FRANCIS, ERIC MD Unavailable Unavailable FRANCIS, ERIC MD Unavailable Unavailable FRANCIS, ERIC MD Unavailable Unavailable Trickey, J Kaur PA Unavailable Unavailable Trickey, J Kaur PA Unavailable Unavailable Trickey, J Kaur PA Unavailable Unavailable Trickey, J Kaur PA Unavailable Unavailable Trickey, J Kaur PA Unavailable Unavailable Trickey, J Kaur PA Unavailable Unavailable Trickey, J Kaur PA Unavailable Unavailable Trickey, J Kaur PA Unavailable Unavailable Trickey, J Kaur PA Unavailable Unavailable Trickey, J Kaur PA Unavailable Unavailable Trickey, J Kaur PA Unavailable Unavailable Trickey, J Kaur PA Unavailable Unavailable Trickey, J Kaur PA Unavailable Unavailable Trickey, J Kaur PA Unavailable Unavailable Trickey, J Kaur PA Unavailable Unavailable Trickey, J Kaur PA Unavailable Unavailable Trickey, J Kaur PA Unavailable Unavailable Trickey, J Kaur PA Unavailable Unavailable Trickey, J Kaur PA Unavailable Unavailable Trickey, J Kaur PA Unavailable Unavailable Trickey, J Kaur PA Unavailable Unavailable Trickey, J Kaur PA Unavailable Unavailable Trickey, J Kaur PA Unavailable Unavailable Trickey, J Kaur PA Unavailable Unavailable Trickey, J Kaur PA Unavailable Unavailable Trickey, J Kaur PA Unavailable Unavailable Trickey, J Kaur PA Unavailable Unavailable Trickey, J Kaur PA Unavailable Unavailable Trickey, J Kaur PA Unavailable Unavailable Trickey, J Kaur PA Unavailable Unavailable Trickey, J Kaur PA Unavailable Unavailable Trickey, J Kaur PA Unavailable Unavailable Trickey, J Kaur PA Unavailable Unavailable Trickey, J Kaur PA Unavailable Unavailable Trickey, J Kaur PA Unavailable Unavailable Trickey, J Kaur PA Unavailable Unavailable Trickey, J Kaur PA Unavailable Unavailable Trickey, J Kaur PA Unavailable Unavailable Trickey, J Kaur PA Unavailable Unavailable Trickey, J Kaur PA Unavailable Unavailable Trickey, J Kaur PA Unavailable Unavailable Trickey, J Kaur PA Unavailable Unavailable Trickey, J Kaur PA Unavailable Unavailable Trickey, J Kaur PA Unavailable Unavailable Trickey, J Kaur PA Unavailable Unavailable Trickey, J Kaur PA Unavailable Unavailable Trickey, J Kaur PA Unavailable Unavailable Trickey, J Kaur PA Unavailable Unavailable Trickey, J Kaur PA Unavailable Unavailable ELLIOTT GUERRA MD Unavailable Unavailable ELLIOTT GUERRA MD Unavailable Unavailable Friedman, M Tang PA Unavailable Unavailable Friedman, M Tang PA Unavailable Unavailable Friedman, M Tang PA Unavailable Unavailable Friedman, M Tang PA Unavailable Unavailable Friedman, M Tang PA Unavailable Unavailable Friedman, M Tang PA Unavailable Unavailable Friedman, M Tang PA Unavailable Unavailable Friedman, M Tang PA Unavailable Unavailable Friedman, M Tang PA Unavailable Unavailable Friedman, M Tang PA Unavailable Unavailable Friedman, M Tang PA Unavailable Unavailable Friedman, M Tang PA Unavailable Unavailable Friedman, M Tang PA Unavailable Unavailable Friedman, M Tang PA Unavailable Unavailable Friedman, M Tang PA Unavailable Unavailable Friedman, M Tang PA Unavailable Unavailable Friedman, M Tang PA Unavailable Unavailable Friedman, M Tang PA Unavailable Unavailable Friedman, M Tang PA Unavailable Unavailable Friedman, M Tang PA Unavailable Unavailable Friedman, M Tang PA Unavailable Unavailable Friedman, M Tang PA Unavailable Unavailable Friedman, M Tang PA Unavailable Unavailable Friedman, M Tang PA Unavailable Unavailable Friedman, M Tang PA Unavailable Unavailable Friedman, M Tang PA Unavailable Unavailable Friedman, M Tang PA Unavailable Unavailable Friedman, M Tang PA Unavailable Unavailable Friedman, M Tang PA Unavailable Unavailable Friedman, M Tang PA Unavailable Unavailable Friedman, M Tang PA Unavailable Unavailable Friedman, M Tang PA Unavailable Unavailable Friedman, M Tang PA Unavailable Unavailable Friedman, M Tang PA Unavailable Unavailable Friedman, M Tang PA Unavailable Unavailable Friedman, M Tang PA Unavailable Unavailable Friedman, M Tang PA Unavailable Unavailable Friedman, M Tang PA Unavailable Unavailable Friedman, M Tang PA Unavailable Unavailable Friedman, M Tang PA Unavailable Unavailable Friedman, M Tang PA Unavailable Unavailable Friedman, M Tang PA Unavailable Unavailable Friedman, M Tang PA Unavailable Unavailable Friedman, M Tang PA Unavailable Unavailable Friedman, M Tang PA Unavailable Unavailable Friedman, M Tang PA Unavailable Unavailable Friedman, M Tang PA Unavailable Unavailable Friedman, M Tang PA Unavailable Unavailable Friedman, M Tang PA Unavailable Unavailable TURRIN, ELSA Unavailable Unavailable TURRIN, ELSA Unavailable Unavailable TURRIN, ELSA Unavailable Unavailable TURRIN, ELSA Unavailable Unavailable CANUTE, W MAKAYLA MD Unavailable Unavailable CANUTE, W MAKAYLA MD Unavailable Unavailable CANUTE, W MAKAYLA MD Unavailable Unavailable CANUTE, W MAKAYLA MD Unavailable Unavailable CANUTE, W MAKAYLA MD Unavailable Unavailable CANUTE, W MAKAYLA MD Unavailable Unavailable CANUTE, W MAKAYLA MD Unavailable Unavailable CANUTE, W MAKAYLA MD Unavailable Unavailable CANUTE, W MAKAYLA MD Unavailable Unavailable CANUTE, W MAKAYLA MD Unavailable Unavailable CANUTE, W MAKAYLA MD Unavailable Unavailable CANUTE, W MAKAYLA MD Unavailable Unavailable CANUTE, W MAKAYLA MD Unavailable Unavailable CANUTE, W MAKAYLA MD Unavailable Unavailable CANUTE, W MAKAYLA MD Unavailable Unavailable CANUTE, W MAKAYLA MD Unavailable Unavailable CANUTE, W MAKAYLA MD Unavailable Unavailable CANUTE, W MAKAYLA MD Unavailable Unavailable CANUTE, W MAKAYLA MD Unavailable Unavailable CANUTE, W MAKAYLA MD Unavailable Unavailable CANUTE, W MAKAYLA MD Unavailable Unavailable CANUTE, W MAKAYLA MD Unavailable Unavailable CANUTE, W MAKAYLA MD Unavailable Unavailable CANUTE, W MAKAYLA MD Unavailable Unavailable CANUTE, W MAKAYLA MD Unavailable Unavailable CANUTE, W MAKAYLA MD Unavailable Unavailable CANUTE, W MAKAYLA MD Unavailable Unavailable CANUTE, W MAKAYLA MD Unavailable Unavailable CANUTE, W MAKAYLA MD Unavailable Unavailable CANUTE, W MAKAYLA MD Unavailable Unavailable CANUTE, W MAKAYLA MD Unavailable Unavailable CANUTE, W MAKAYLA MD Unavailable Unavailable CANUTE, W MAKAYLA MD Unavailable Unavailable CANUTE, W MAKAYLA MD Unavailable Unavailable CANUTE, W MAKAYLA MD Unavailable Unavailable CANUTE, W MAKAYLA MD Unavailable Unavailable CANUTE, W MAKAYLA MD Unavailable Unavailable CANUTE, W MAKAYLA MD Unavailable Unavailable CANUTE, W MAKAYLA MD Unavailable Unavailable CANUTE, W MAKAYLA MD Unavailable Unavailable CANUTE, W MAKAYLA MD Unavailable Unavailable CANUTE, W MAKAYLA MD Unavailable Unavailable CANUTE, W MAKAYLA MD Unavailable Unavailable CANUTE, W MAKAYLA MD Unavailable Unavailable CANUTE, W MAKAYLA MD Unavailable Unavailable CANUTE, W MAKAYLA MD Unavailable Unavailable CANUTE, W MAKAYLA MD Unavailable Unavailable CANUTE, W MAKAYLA MD Unavailable Unavailable CANUTE, W MAKAYLA MD Unavailable Unavailable CANUTE, W MAKAYLA MD Unavailable Unavailable CANUTE, W MAKAYLA MD Unavailable Unavailable CANUTE, W MAKAYLA MD Unavailable Unavailable CANUTE, W MAKAYLA MD Unavailable Unavailable CANUTE, W MAKAYLA MD Unavailable Unavailable CANUTE, W MAKAYLA MD Unavailable Unavailable CANUTE, W MAKAYLA MD Unavailable Unavailable CANUTE, W MAKAYLA MD Unavailable Unavailable CANUTE, W MAKAYLA MD Unavailable Unavailable CANUTE, W MAKAYLA MD Unavailable Unavailable CANUTE, W MAKAYLA MD Unavailable Unavailable CANUTE, W MAKAYLA MD Unavailable Unavailable CANUTE, W MAKAYLA MD Unavailable Unavailable CANUTE, W MAKAYLA MD Unavailable Unavailable CANUTE, W MAKAYLA MD Unavailable Unavailable CANUTE, W MAKAYLA MD Unavailable Unavailable CANUTE, W MAKAYLA MD Unavailable Unavailable CANUTE, W MAKAYLA MD Unavailable Unavailable CANUTE, W MAKAYLA MD Unavailable Unavailable CANUTE, W MAKAYLA MD Unavailable Unavailable CANUTE, W MAKAYLA MD Unavailable Unavailable CANUTE, W MAKAYLA MD Unavailable Unavailable CANUTE, W MAKAYLA MD Unavailable Unavailable CANUTE, W MAKAYLA MD Unavailable Unavailable CANUTE, W MAKAYLA MD Unavailable Unavailable CANUTE, W MAKAYLA MD Unavailable Unavailable CANUTE, W MAKAYLA MD Unavailable Unavailable CANUTE, W MAKAYLA MD Unavailable Unavailable CANUTE, W MAKAYLA MD Unavailable Unavailable CANUTE, W MAKAYLA MD Unavailable Unavailable CANUTE, W MAKAYLA MD Unavailable Unavailable CANUTE, W MAKAYLA MD Unavailable Unavailable CANUTE, W MAKAYLA MD Unavailable Unavailable CANUTE, W MAKAYLA MD Unavailable Unavailable CANUTE, W MAKAYLA MD Unavailable Unavailable CANUTE, W MAKAYLA MD Unavailable Unavailable CANUTE, W MAKAYLA MD Unavailable Unavailable CANUTE, W MAKAYLA MD Unavailable Unavailable CANUTE, W MAKAYLA MD Unavailable Unavailable CANUTE, W MAKAYLA MD Unavailable Unavailable CANUTE, W MAKAYLA MD Unavailable Unavailable CANUTE, W MAKAYLA MD Unavailable Unavailable CANUTE, W MAKAYLA MD Unavailable Unavailable CANUTE, W MAKAYLA Unavailable Unavailable Michelle RAYA MD Unavailable Unavailable Michelle RAYA MD Unavailable Unavailable Michelle RAYA MD Unavailable Unavailable Michelle RAYA MD Unavailable Unavailable CANMichelle MARCANO MD Unavailable Unavailable Michelle RAYA MD Unavailable Unavailable Michelle RAYA MD Unavailable Unavailable CANMichelle MARCANO MD Unavailable Unavailable Michelle RAYA MD Unavailable Unavailable CANUTEMichelle MD Unavailable Unavailable Lauren, M Nena INSURANCE CONSULTANT Unavailable Unavailable Lauren, M Nena INSURANCE CONSULTANT Unavailable Unavailable Lauren, M Nena INSURANCE CONSULTANT Unavailable Unavailable Lauren, M Nena INSURANCE CONSULTANT Unavailable Unavailable Lauren, M Nena INSURANCE CONSULTANT Unavailable Unavailable Lauren, M Nena INSURANCE CONSULTANT Unavailable Unavailable Lauren, M Nena INSURANCE CONSULTANT Unavailable Unavailable Lauren, M Nena INSURANCE CONSULTANT Unavailable Unavailable Lauren, M Nena INSURANCE CONSULTANT Unavailable Unavailable Lauren, M Nena INSURANCE CONSULTANT Unavailable Unavailable Lauren, M Nena INSURANCE CONSULTANT Unavailable Unavailable Lauren, M Nena INSURANCE CONSULTANT Unavailable Unavailable Lauren, M Nena INSURANCE CONSULTANT Unavailable Unavailable Lauren, M Nena INSURANCE CONSULTANT Unavailable Unavailable Lauren, M Nena INSURANCE CONSULTANT Unavailable Unavailable Lauren, M Nena INSURANCE CONSULTANT Unavailable Unavailable Lauren, M Nena INSURANCE CONSULTANT Unavailable Unavailable Lauren, M Nena INSURANCE CONSULTANT Unavailable Unavailable Lauren, M Nena INSURANCE CONSULTANT Unavailable Unavailable Lauren, M Nena INSURANCE CONSULTANT Unavailable Unavailable Lauren, M Nena INSURANCE CONSULTANT Unavailable Unavailable Lauren, M Nena INSURANCE CONSULTANT Unavailable Unavailable Lauren, M Nena INSURANCE CONSULTANT Unavailable Unavailable Lauren, M Nena INSURANCE CONSULTANT Unavailable Unavailable Lauren, M Nena INSURANCE CONSULTANT Unavailable Unavailable Lauren, M Nena INSURANCE CONSULTANT Unavailable Unavailable Lauren, M Nena INSURANCE CONSULTANT Unavailable Unavailable Lauren, M Nena INSURANCE CONSULTANT Unavailable Unavailable Lauren, M Nena INSURANCE CONSULTANT Unavailable Unavailable Lauren, M Nena INSURANCE CONSULTANT Unavailable Unavailable Lauren, M Nena INSURANCE CONSULTANT Unavailable Unavailable Lauren, M Nena INSURANCE CONSULTANT Unavailable Unavailable Riri Reardon MD Unavailable Unavailable Riri Reardon MD Unavailable Unavailable Riri Reardon MD Unavailable Unavailable Riri Reardon MD Unavailable Unavailable Riri Reardon MD Unavailable Unavailable Riri Reardon MD Unavailable Unavailable Riri Reardon MD Unavailable Unavailable Riri Reardon MD Unavailable Unavailable Riri Reardon MD Unavailable Unavailable Riri Reardon MD Unavailable Unavailable Riri Reardon MD Unavailable Unavailable Riri Reardon MD Unavailable Unavailable Riri Reardon MD Unavailable Unavailable Riri Reardon MD Unavailable Unavailable SleRiri menendez MD Unavailable Unavailable SleRiri menendez MD Unavailable Unavailable SleRiri menendez MD Unavailable Unavailable SleRiri menendez MD Unavailable Unavailable SleRiri menendez MD Unavailable Unavailable SleRiri menendez MD Unavailable Unavailable SleRiri menendez MD Unavailable Unavailable SleRiri menendez MD Unavailable Unavailable SleRiri menendez MD Unavailable Unavailable Riri Reardon MD Unavailable Unavailable Riri Reardon MD Unavailable Unavailable SleRiri menendez MD Unavailable Unavailable SleRiri menendez MD Unavailable Unavailable Riri Reardon MD Unavailable Unavailable Riri Reardon MD Unavailable Unavailable Riri Reardon MD Unavailable Unavailable Riri Reardon MD Unavailable Unavailable Riri Reardon MD Unavailable Unavailable Riri Reardon MD Unavailable Unavailable Riri Reardon MD Unavailable Unavailable Riri Reardon MD Unavailable Unavailable Riri Reardon MD Unavailable Unavailable Riri Reardon MD Unavailable Unavailable Riri Reardon MD Unavailable Unavailable Riri Reardon MD Unavailable Unavailable Riri Reardon MD Unavailable Unavailable Riri Reardon MD Unavailable Unavailable Riri Reardon MD Unavailable Unavailable Riri Reardon MD Unavailable Unavailable Riri Reardon MD Unavailable Unavailable Riri Reardon MD Unavailable Unavailable Riri Reardon MD Unavailable Unavailable Riri Reardon MD Unavailable Unavailable Riri Reardon MD Unavailable Unavailable Riri Reardon MD Unavailable Unavailable Riri Reardon MD Unavailable Unavailable Riri Reardon MD Unavailable Unavailable Riri Reardon MD Unavailable Unavailable Riri Reardon MD Unavailable Unavailable Riri Reardon MD Unavailable Unavailable Riri Reardon MD Unavailable Unavailable Riri Reardon MD Unavailable Unavailable Riri Reardon MD Unavailable Unavailable Riri Reardon MD Unavailable Unavailable Riri Reardon MD Unavailable Unavailable NON, PHYSICIAN STAFF Unavailable Unavailable Re-disclosure Warning The records that you are about to access may contain information from federally-assisted alcohol or drug abuse programs. If such information is present, then the following federally mandated warning applies: This information has been disclosed to you from records protected by federal confidentiality rules (42 CFR part 2). The federal rules prohibit you from making any further disclosure of this information unless further disclosure is expressly permitted by the written consent of the person to whom it pertains or as otherwise permitted by 42 CFR part 2. A general authorization for the release of medical or other information is NOT sufficient for this purpose. The Federal rules restrict any use of the information to criminally investigate or prosecute any alcohol or drug abuse patient.The records that you are about to access may contain highly sensitive health information, the redisclosure of which is protected by Article 27-F of the [facility] Public Health law. If you continue you may have access to information: Regarding HIV / AIDS; Provided by facilities licensed or operated by the [facility] Office of Mental Health; or Provided by the [facility] Office for People With Developmental Disabilities. If such information is present, then the following [facility] mandated warning applies: This information has been disclosed to you from confidential records which are protected by state law. State law prohibits you from making any further disclosure of this information without the specific written consent of the person to whom it pertains, or as otherwise permitted by law. Any unauthorized further disclosure in violation of state law may result in a fine or intermediate sentence or both. A general authorization for the release of medical or other information is NOT sufficient authorization for further disc losure. Family History Family Member Name Family Member Gender Family Member Status Date o f Status Description Data Source(s) Unknown Unknown Problem MEDENT ([facility]) Unknown Unknown Problem [facility] ([facility]) Unknown Unknown Problem [facility] ([facility]) Encounters Encounter Providers Location Date Indications Data Source(s ) Outpatient Attender: Kaur JOHNSON Main office [facility] 02/26/2021 10:30:00 AM EDT [facility] ([facility]) [place] [address] [facility] [facility] [address] 02/02/2021 12:00:00 AM EDT eCW1 ([facility]) [place] [address] [facility] [address] 01/27/2021 12:00:00 AM EDT eCW1 ([facility]) Outpatient Attender: ERIC BLANCO MD Main office - [facility] 01/26/2021 10:45:00 AM EDT MEDENT ([facility] [place]) [place] [address] [facility] [facility] [address] 01/08/2021 12:00:00 AM EDT eCW1 ([facility]) Unknown [address] [facility] [place] [address] 01/07/2021 12:00:00 AM EDT eCW1 ([facility]) TeleMedicine Phone E/M by Phys 11-[address] [place] [phone] 01/05/2021 12:00:00 AM EDT eCW1 ([facility]) Unknown [address] [facility] [place] [address] 01/05/2021 12:00:00 AM EDT eCW1 ([facility]) Outpatient Attender: ELLIOTT Shannon/Ines/Bello/ Reindl 01/01/2021 02:00:00 PM EDT MEDENT ([facility], [place]) Unknown [address] [facility] [place] [address] 01/01/2021 12:00:00 AM EDT eCW1 ([facility]) Outpatient [address] [facility] [place] [address] 12/18/2020 12:00:00 AM EDT eCW1 ([facility]) Unknown [address] [facility] [place] [address] 12/18/2020 12:00:00 AM EDT eCW1 ([facility]) Outpatient [address] [facility] [place] [address] 12/04/2020 12:00:00 AM EDT eCW1 ([facility]) Outpatient [address] [facility] [place] [address] 11/04/2020 12:00:00 AM EDT eCW1 ([facility]) [place] [address] [facility] [address] 11/03/2020 12:00:00 AM EDT eCW1 ([facility]) [place] [address] [facility] [address] 10/06/2020 12:00:00 AM EDT eCW1 ([facility]) [place] [address] [facility] [address] 09/11/2020 12:00:00 AM EDT eCW1 ([facility]) [place] [address] [facility] [address] 09/08/2020 12:00:00 AM EDT eCW1 ([facility]) [place] [address] [facility] [address] 09/07/2020 12:00:00 AM EDT eCW1 ([facility]) [place] [address] [facility] [address] 09/01/2020 12:00:00 AM EDT eCW1 ([facility]) Outpatient Attender: MAKAYLA RAYA MD [facility] [place] 08/31/2020 02:00:00 PM EDT [facility] ([facility]) [place] [address] [facility] [address] 08/13/2020 12:00:00 AM EDT eCW1 ([facility]) [place] [address] [facility] [address] 08/07/2020 12:00:00 AM EDT eCW1 ([facility]) [place] [address] [facility] [address] 08/03/2020 12:00:00 AM EDT eCW1 ([facility]) [place] [address] [facility] [place] [address] 07/28/2020 12:00:00 AM EDT eCW1 ([facility]) [place] [address] [facility] [address] 07/13/2020 12:00:00 AM EDT eCW1 ([facility]) [place] [address] [facility] [place] [address] 07/07/2020 12:00:00 AM EST eCW1 ([facility]) [place] [address] [facility] [place] [address] 07/02/2020 12:00:00 AM EST eCW1 ([facility]) [place] [address] [facility] [address] 06/25/2020 12:00:00 AM EST eCW1 ([facility]) [place] [address] [facility] [address] 06/15/2020 12:00:00 AM EST eCW1 ([facility]) [place] [address] [facility] [address] 06/12/2020 12:00:00 AM EST eCW1 ([facility]) Outpatient Attender: Riri Reardon MDReferrer: Stephanie [email or web address] 06/11/2020 12:00:00 AM EST [facility] [place] [address] [facility] [address] 06/09/2020 12:00:00 AM EST eCW1 ([facility]) [place] [address] [facility] [address] 05/12/2020 12:00:00 AM EST eCW1 ([facility]) [place] [address] [facility] [address] 05/12/2020 12:00:00 AM EST eCW1 ([facility]) [place] [address] [facility] [place] [address] 05/06/2020 12:00:00 AM EST eCW1 ([facility]) [place] [address] [facility] [place] [address] 04/15/2020 12:00:00 AM EST eCW1 ([facility]) [place] [address] [facility] [address] 04/13/2020 12:00:00 AM EST eCW1 ([facility]) [place] [address] [facility] [place] [address] 04/10/2020 12:00:00 AM EST eCW1 ([facility]) [place] [address] [facility] [address] 04/02/2020 12:00:00 AM EST eCW1 ([facility]) [place] [address] [facility] [place] [address] 04/02/2020 12:00:00 AM EST eCW1 ([facility]) [place] [address] [facility] [place] [address] 03/31/2020 12:00:00 AM EST eCW1 ([facility]) Outpatient Attender: Tang Friedman PAConsultant: STAFF NON 03/30/2020 11:49:00 AM EST - 03/30/2020 11:49:00 AM EST [facility] [place] [address] [facility] [address] 03/24/2020 12:00:00 AM EST eCW1 ([facility]) [place] [address] [facility] [address] 03/13/2020 12:00:00 AM EST [facility]CW1 ([facility] [facility] [place] [address] [facility] [address] 03/03/2020 12:00:00 AM EST eCW1 ([facility]) [place] [address] [facility] [facility] [address] 02/28/2020 12:00:00 AM EDT eCW1 ([facility]) [place] [address] [facility] [address] 02/28/2020 12:00:00 AM EDT eCW1 ([facility]) [place] [address] [facility] [address] 02/28/2020 12:00:00 AM EDT eCW1 ([facility]) [place] [address] [facility] [facility] [address] 02/26/2020 12:00:00 AM EDT eCW1 ([facility]) [place] [address] [facility] [address] 02/26/2020 12:00:00 AM EDT eCW1 ([facility]) [place] [address] [facility] [address] 02/21/2020 12:00:00 AM EDT eCW1 ([facility]) [place] [address] [facility] [address] 02/21/2020 12:00:00 AM EDT eCW1 ([facility]) [place] [address] [facility] [address] 02/21/2020 12:00:00 AM EDT eCW1 ([facility]) Emergency Attender: ELSA AGUILARConsultant: STAFF NON 02/13/2020 03:30:00 PM EDT - 02/13/2020 05:39:00 PM EDT [facility] Patient discharged. Outpatient Attender: Nena Lauren NPConsultant: STAFF NON 02/13/2020 01:22:00 PM EDT - 02/13/2020 02:22:00 PM EDT [facility] [place] [address] [facility] [address] 02/11/2020 12:00:00 AM EDT eCW1 ([facility]) Medications Medication Brand Name Start Date Product Form Dose Route Admi nistrative Instructions Pharmacy Instructions Status Indications Reaction Description Data Source(s) 15 mg 03/07/2021 12:00:00 AM EDT tablet extended release 90 TAKE ONE TABLET BY MOUTH EVERY 8 HOURS MAXIMUM DAILY DOSE = 3 TABLETS TAKE ONE TABLET BY MOUTH EVERY 8 HOURS MAXIMUM DAILY DOSE = 3 TABLETS SOLD: 03/09/2021 [facility] 15 mg 03/07/2021 12:00:00 AM EDT tablet 60 TAKE ONE TABLET BY MOUTH TWICE A DAY NEEDED FOR SEVERE PAIN MAXIMUM DAILY DOSE = 2 TABLETS TAKE ONE TABLET BY MOUTH TWICE A DAY NEEDED FOR SEVERE PAIN MAXIMUM DAILY DOSE = 2 TABLETS SOLD: 03/09/2021 [facility] 15 mg 02/06/2021 12:00:00 AM EDT tablet extended release 90 TAKE ONE TABLET BY MOUTH THREE TIMES A DAY EVERY 8 HOURS MAXIMUM DAILY DOSE = 3 TAKE ONE TABLET BY MOUTH THREE TIMES A DAY EVERY 8 HOURS MAXIMUM DAILY DOSE = 3 SOLD: 02/06/2021 [facility] 15 mg 02/06/2021 12:00:00 AM EDT tablet 60 TAKE ONE TABLET BY MOUTH TWICE A DAY NEEDED FOR SERVERE PAIN EPISODES MAXIMUM DAILY DOSE = 2 TAKE ONE TABLET BY MOUTH TWICE A DAY NEEDED FOR SERVERE PAIN EPISODES MAXIMUM DAILY DOSE = 2 SOLD: 02/06/2021 [facility] 8 HR Acetaminophen 650 MG Extended Release Oral Tablet [Tyle nol] Tylenol 8 Hour 02/05/2021 12:00:00 AM EDT active MEDENT ([facility], ) Morphine Sulfate 15 MG Oral Tablet Morphine Sulfate 15 MG 12:00:00 AM EDT active Morphine Sulfate 15 MG eCW1 ([facility]) Morphine Sulfate 15 MG Extended Release Oral Tablet Mo rphine Sulfate ER 15 MG Morphine Sulfate ER 15 MG 02/02/2021 12:00:00 AM EDT 1.0 {tablet} active Morphine Sulfate ER 15 MG eCW1 ( [facility]) 15 mg 01/07/2021 12:00:00 AM EDT tablet 60 TAKE ONE TABLET BY MOUTH TWICE A DAY FOR PAIN MAXIMUM DAILY DOSE = 2 TABLETS TAKE ONE TABLET BY MOUTH TWICE A DAY FOR PAIN MAXIMUM DAILY DOSE = 2 TABLETS SOLD: 01/08/2021 [facility] 15 mg 01/07/2021 12:00:00 AM EDT tablet extended release 90 TAKE ONE TABLET BY MOUTH EVERY 8 HOURS MAXIMUM DAILY DOSE = 3 TABLETS TAKE ONE TABLET BY MOUTH EVERY 8 HOURS MAXIMUM DAILY DOSE = 3 TABLETS SOLD: 01/08/2021 [facility] Morphine Sulfate 15 MG Extended Release Oral Tablet Mo rphine Sulfate ER 15 MG Morphine Sulfate ER 15 MG 12/18/2020 12:00:00 AM EDT 1.0 {tablet} active Morphine Sulfate ER 15 MG eCW1 ( [facility]) Morphine Sulfate 15 MG Oral Tablet Morphine Sulfate 15 MG 12:00:00 AM EDT active Morphine Sulfate 15 MG eCW1 ([facility]) Morphine Sulfate 15 MG Extended Release Oral Tablet Mo rphine Sulfate ER 15 MG Morphine Sulfate ER 15 MG 12/18/2020 12:00:00 AM EDT 1.0 {tablet} active Morphine Sulfate ER 15 MG eCW1 ( [facility]) Morphine Sulfate 15 MG Oral Tablet Morphine Sulfate 15 MG 12:00:00 AM EDT active Morphine Sulfate 15 MG eCW1 ([facility]) Morphine Sulfate 15 MG Oral Tablet Morphine Sulfate 15 MG 12:00:00 AM EDT active Morphine Sulfate 15 MG eCW1 ([facility]) Morphine Sulfate 15 MG Oral Tablet Morphine Sulfate 15 MG 12:00:00 AM EDT active Morphine Sulfate 15 MG eCW1 ([facility]) Morphine Sulfate 15 MG Extended Release Oral Tablet Mo rphine Sulfate ER 15 MG Morphine Sulfate ER 15 MG 12/18/2020 12:00:00 AM EDT 1.0 {tablet} active Morphine Sulfate ER 15 MG eCW1 ( [facility]) Morphine Sulfate 15 MG Oral Tablet Morphine Sulfate 15 MG 12:00:00 AM EDT active Morphine Sulfate 15 MG eCW1 ([facility]) Morphine Sulfate 15 MG Oral Tablet Morphine Sulfate 15 MG 12:00:00 AM EDT active Morphine Sulfate 15 MG eCW1 ([facility]) Morphine Sulfate 15 MG Extended Release Oral Tablet Mo rphine Sulfate ER 15 MG Morphine Sulfate ER 15 MG 12/18/2020 12:00:00 AM EDT 1.0 {tablet} active Morphine Sulfate ER 15 MG eCW1 ( [facility]) Morphine Sulfate 15 MG Extended Release Oral Tablet Mo rphine Sulfate ER 15 MG Morphine Sulfate ER 15 MG 12/18/2020 12:00:00 AM EDT 1.0 {tablet} active Morphine Sulfate ER 15 MG eCW1 ( [facility]) Morphine Sulfate 15 MG Extended Release Oral Tablet Mo rphine Sulfate ER 15 MG Morphine Sulfate ER 15 MG 12/18/2020 12:00:00 AM EDT 1.0 {tablet} active Morphine Sulfate ER 15 MG eCW1 ( [facility]) Morphine Sulfate 15 MG Extended Release Oral Tablet Mo rphine Sulfate ER 15 MG Morphine Sulfate ER 15 MG 12/18/2020 12:00:00 AM EDT 1.0 {tablet} active Morphine Sulfate ER 15 MG eCW1 ( [facility]) Morphine Sulfate 15 MG Extended Release Oral Tablet Mo rphine Sulfate ER 15 MG Morphine Sulfate ER 15 MG 12/18/2020 12:00:00 AM EDT 1.0 {tablet} active Morphine Sulfate ER 15 MG eCW1 ( [facility]) Morphine Sulfate 15 MG Oral Tablet Morphine Sulfate 15 MG 12:00:00 AM EDT active Morphine Sulfate 15 MG eCW1 ([facility]) Morphine Sulfate 15 MG Oral Tablet Morphine Sulfate 15 MG 12:00:00 AM EDT active Morphine Sulfate 15 MG eCW1 ([facility]) 15 mg 12/08/2020 12:00:00 AM EDT tablet extended release 90 TAKE ONE TABLET BY MOUTH EVERY 8 HOURS MAXIMUM DAILY DOSE = 3 TAKE ONE TABLET BY MOUTH EVERY 8 HOURS MAXIMUM DAILY DOSE = 3 SOLD: 12/09/2020 [facility] 15 mg 12/08/2020 12:00:00 AM EDT tablet 60 TAKE ONE TABLET BY MOUTH TWICE A DAY NEEDED FOR SEVERE PAIN MAXIMUM DAILY DOSE = 2 TAKE ONE TABLET BY MOUTH TWICE A DAY NEEDED FOR SEVERE PAIN MAXIMUM DAILY DOSE = 2 SOLD: 12/09/2020 [facility] Morphine Sulfate 15 MG Extended Release Oral Tablet Mo rphine Sulfate ER 15 MG Morphine Sulfate ER 15 MG 12/04/2020 12:00:00 AM EDT 1.0 {tablet} active Morphine Sulfate ER 15 MG eCW1 ( [facility]) Morphine Sulfate 15 MG Oral Tablet Morphine Sulfate 15 MG 12:00:00 AM EDT active Morphine Sulfate 15 MG eCW1 ([facility]) 15 mg 11/08/2020 12:00:00 AM EDT tablet extended release 90 TAKE ONE TABLET BY MOUTH EVERY 8 HOURS NEEDED MAXIMUM DAILY DOSE = 3 TABLETS TAKE ONE TABLET BY MOUTH EVERY 8 HOURS NEEDED MAXIMUM DAILY DOSE = 3 TABLETS SOLD: 11/09/2020 [facility] 15 mg 11/08/2020 12:00:00 AM EDT tablet 60 TAKE ONE TABLET BY MOUTH TWICE A DAY IF NEEDED FOR SEVERE PAIN EPISODES MAXIMUM DAILY DOSE = 2 TABLETS TAKE ONE TABLET BY MOUTH TWICE A DAY IF NEEDED FOR SEVERE PAIN EPISODES MAXIMUM DAILY DOSE = 2 TABLETS SOLD: 11/09/2020 [facility] 10 mg 11/07/2020 12:00:00 AM EDT tablet 12 TAKE ONE TABLET BY MOUTH EVERY 6 HOURS NEEDED FOR PAIN TAKE ONE TABLET BY MOUTH EVERY 6 HOURS A S NEEDED FOR PAIN SOLD: 11/07/2020 [facility] Morphine Sulfate 15 MG Oral Tablet Morphine Sulfate 15 MG 12:00:00 AM EDT active Morphine Sulfate 15 MG eCW1 ([facility]) Morphine Sulfate 15 MG Extended Release Oral Tablet Mo rphine Sulfate ER 15 MG Morphine Sulfate ER 15 MG 11/04/2020 12:00:00 AM EDT 1.0 {tablet} active Morphine Sulfate ER 15 MG eCW1 ( [facility]) 15 mg 10/09/2020 12:00:00 AM EDT tablet 60 TAKE ONE TABLET BY MOUTH TWICE A DAY IF NEEDED FOR SEVERE PAIN EPISODES MAXIMUM DAILY DOSE = 2 TABLETS TAKE ONE TABLET BY MOUTH TWICE A DAY IF NEEDED FOR SEVERE PAIN EPISODES MAXIMUM DAILY DOSE = 2 TABLETS SOLD: 10/10/2020 [facility] 15 mg 10/09/2020 12:00:00 AM EDT tablet extended release 90 TAKE ONE TABLET BY MOUTH EVERY 8 HOURS MAXIMUM DAILY DOSE = 3 TABLETS TAKE ONE TABLET BY MOUTH EVERY 8 HOURS MAXIMUM DAILY DOSE = 3 TABLETS SOLD: 10/10/2020 [facility] Morphine Sulfate 15 MG Oral Tablet Morphine Sulfate 15 MG 12:00:00 AM EDT active Morphine Sulfate 15 MG eCW1 ([facility]) Morphine Sulfate 15 MG Extended Release Oral Tablet Mo rphine Sulfate ER 15 MG Morphine Sulfate ER 15 MG 10/06/2020 12:00:00 AM EDT 1.0 {tablet} active Morphine Sulfate ER 15 MG eCW1 ( [facility]) Morphine Sulfate 15 MG Oral Tablet Morphine Sulfate 15 MG 12:00:00 AM EDT active Morphine Sulfate 15 MG eCW1 ([facility]) Morphine Sulfate 15 MG Extended Release Oral Tablet Mo rphine Sulfate ER 15 MG Morphine Sulfate ER 15 MG 10/06/2020 12:00:00 AM EDT 1.0 {tablet} active Morphine Sulfate ER 15 MG eCW1 ( [facility]) 15 mg 09/09/2020 12:00:00 AM EDT tablet extended release 90 TAKE ONE TABLET BY MOUTH EVERY 8 HOURS MAXIMUM DAILY DOSE = 3 TABLETS TAKE ONE TABLET BY MOUTH EVERY 8 HOURS MAXIMUM DAILY DOSE = 3 TABLETS SOLD: 09/10/2020 [facility] 15 mg 09/09/2020 12:00:00 AM EDT tablet 60 TAKE ONE TABLET BY MOUTH TWICE A DAY NEEDED FOR SEVERE PAIN EPISODES MAXIMUM DAILY DOSE = 2 TABLETS TAKE ONE TABLET BY MOUTH TWICE A DAY NEEDED FOR SEVERE PAIN EPISODES MAXIMUM DAILY DOSE = 2 TABLETS SOLD: 09/10/2020 [facility] Morphine Sulfate 15 MG Oral Tablet Morphine Sulfate 15 MG 12:00:00 AM EDT active Morphine Sulfate 15 MG eCW1 ([facility]) Morphine Sulfate 15 MG Extended Release Oral Tablet Mo rphine Sulfate ER 15 MG Morphine Sulfate ER 15 MG 09/07/2020 12:00:00 AM EDT 1.0 {tablet} active Morphine Sulfate ER 15 MG eCW1 ( [facility]) Morphine Sulfate 15 MG Oral Tablet Morphine Sulfate 15 MG 12:00:00 AM EDT active Morphine Sulfate 15 MG eCW1 ([facility]) Morphine Sulfate 15 MG Extended Release Oral Tablet Mo rphine Sulfate ER 15 MG Morphine Sulfate ER 15 MG 09/07/2020 12:00:00 AM EDT 1.0 {tablet} active Morphine Sulfate ER 15 MG eCW1 ( [facility]) Morphine Sulfate 15 MG Oral Tablet Morphine Sulfate 15 MG 12:00:00 AM EDT active Morphine Sulfate 15 MG eCW1 ([facility]) Morphine Sulfate 15 MG Extended Release Oral Tablet Mo rphine Sulfate ER 15 MG Morphine Sulfate ER 15 MG 09/07/2020 12:00:00 AM EDT 1.0 {tablet} active Morphine Sulfate ER 15 MG eCW1 ( [facility]) Morphine Sulfate 15 MG Extended Release Oral Tablet Mo rphine Sulfate ER 15 MG Morphine Sulfate ER 15 MG 09/07/2020 12:00:00 AM EDT 1.0 {tablet} active Morphine Sulfate ER 15 MG eCW1 ( [facility]) Morphine Sulfate 15 MG Oral Tablet Morphine Sulfate 15 MG 12:00:00 AM EDT active Morphine Sulfate 15 MG eCW1 ([facility]) 800-160 mg 08/20/2020 12:00:00 AM EDT tablet 14 TAKE ONE TABLET BY MOUTH TWICE A DAY FOR 7 DAYS TAKE ONE TABLET BY MOUTH TWICE A DAY FOR 7 DAYS SOLD: 08/20/2020 [facility] 15 mg 08/11/2020 12:00:00 AM EDT tablet 60 TAKE ONE TABLET BY MOUTH TWICE A DAY NEEDED FOR SEVERE PAIN EPISODES MAXIMUM DAILY DOSE = 2 TABLETS TAKE ONE TABLET BY MOUTH TWICE A DAY NEEDED FOR SEVERE PAIN EPISODES MAXIMUM DAILY DOSE = 2 TABLETS SOLD: 08/11/2020 [facility] 15 mg 08/10/2020 12:00:00 AM EDT tablet extended release 90 TAKE ONE TABLET BY MOUTH EVERY 8 HOURS MAXIMUM DAILY DOSE = 3 TABLETS TAKE ONE TABLET BY MOUTH EVERY 8 HOURS MAXIMUM DAILY DOSE = 3 TABLETS SOLD: 08/11/2020 [facility] Morphine Sulfate 15 MG Extended Release Oral Tablet Mo rphine Sulfate ER 15 MG Morphine Sulfate ER 15 MG 08/03/2020 12:00:00 AM EDT 1.0 {tablet} active Morphine Sulfate ER 15 MG eCW1 ( [facility]) Morphine Sulfate 15 MG Extended Release Oral Tablet Mo rphine Sulfate ER 15 MG Morphine Sulfate ER 15 MG 08/03/2020 12:00:00 AM EDT 1.0 {tablet} active Morphine Sulfate ER 15 MG eCW1 ( [facility]) Morphine Sulfate 15 MG Oral Tablet Morphine Sulfate 15 MG 12:00:00 AM EDT active Morphine Sulfate 15 MG eCW1 ([facility]) Morphine Sulfate 15 MG Extended Release Oral Tablet Mo rphine Sulfate ER 15 MG Morphine Sulfate ER 15 MG 08/03/2020 12:00:00 AM EDT 1.0 {tablet} active Morphine Sulfate ER 15 MG eCW1 ( [facility]) Morphine Sulfate 15 MG Oral Tablet Morphine Sulfate 15 MG 12:00:00 AM EDT active Morphine Sulfate 15 MG eCW1 ([facility]) Morphine Sulfate 15 MG Oral Tablet Morphine Sulfate 15 MG 12:00:00 AM EDT active Morphine Sulfate 15 MG eCW1 ([facility]) Morphine Sulfate 15 MG Oral Tablet Morphine Sulfate 15 MG 12:00:00 AM EDT active Morphine Sulfate 15 MG eCW1 ([facility]) 15 mg 07/13/2020 12:00:00 AM EDT tablet 60 TAKE ONE TABLET BY MOUTH TWICE A DAY IF NEEDED FOR SEVERE PAIN, MAXIMUM DAILY DOSE = 2 TAKE ONE TABLET BY MOUTH TWICE A DAY IF NEEDED FOR SEVERE PAIN, MAXIMUM DAILY DOSE = 2 SOLD: 07/24/2020 [facility] Morphine Sulfate 15 MG Oral Tablet Morphine Sulfate 15 MG 12:00:00 AM EDT active Morphine Sulfate 15 MG eCW1 ([facility]) Morphine Sulfate 15 MG Oral Tablet Morphine Sulfate 15 MG 12:00:00 AM EDT active Morphine Sulfate 15 MG eCW1 ([facility]) Morphine Sulfate 15 MG Extended Release Oral Tablet Mo rphine Sulfate ER 15 MG Morphine Sulfate ER 15 MG 07/08/2020 12:00:00 AM EST 1.0 {tablet} active Morphine Sulfate ER 15 MG eCW1 ( [facility]) Morphine Sulfate 15 MG Extended Release Oral Tablet Mo rphine Sulfate ER 15 MG Morphine Sulfate ER 15 MG 07/08/2020 12:00:00 AM EST 1.0 {tablet} active Morphine Sulfate ER 15 MG eCW1 ( [facility]) Morphine Sulfate 15 MG Extended Release Oral Tablet Mo rphine Sulfate ER 15 MG Morphine Sulfate ER 15 MG 07/08/2020 12:00:00 AM EST 1.0 {tablet} active Morphine Sulfate ER 15 MG eCW1 ( [facility]) Morphine Sulfate 15 MG Extended Release Oral Tablet Mo rphine Sulfate ER 15 MG Morphine Sulfate ER 15 MG 07/08/2020 12:00:00 AM EST 1.0 {tablet} active Morphine Sulfate ER 15 MG eCW1 ( [facility]) Morphine Sulfate 15 MG Extended Release Oral Tablet Mo rphine Sulfate ER 15 MG Morphine Sulfate ER 15 MG 07/08/2020 12:00:00 AM EST 1.0 {tablet} active Morphine Sulfate ER 15 MG eCW1 ( [facility]) 15 mg 07/08/2020 12:00:00 AM EST tablet extended release 90 TAKE ONE TABLET BY MOUTH THREE TIMES A DAY EVERY 8 HOURS MAXIMUM DAILY DOSE = 3 TAKE ONE TABLET BY MOUTH THREE TIMES A DAY EVERY 8 HOURS MAXIMUM DAILY DOSE = 3 SOLD: 07/12/2020 [facility] 15 mg 06/15/2020 12:00:00 AM EST tablet 60 TAKE ONE TABLET BY MOUTH TWICE A DAY IF NEEDED FOR SEVERE PAIN MAXIMUM DAILY DOSE = 2 TAKE ONE TABLET BY MOUTH TWICE A DAY IF NEEDED FOR SEVERE PAIN MAXIMUM DAILY DOSE = 2 SOLD: 06/16/2020 [facility] Morphine Sulfate 15 MG Oral Tablet Morphine Sulfate 15 MG 12:00:00 AM EST active Morphine Sulfate 15 MG eCW1 ([facility]) Morphine Sulfate 15 MG Oral Tablet Morphine Sulfate 15 MG 12:00:00 AM EST active Morphine Sulfate 15 MG eCW1 ([facility]) Morphine Sulfate 15 MG Oral Tablet Morphine Sulfate 15 MG 12:00:00 AM EST active Morphine Sulfate 15 MG eCW1 ([facility]) Morphine Sulfate 15 MG Oral Tablet Morphine Sulfate 15 MG 12:00:00 AM EST active Morphine Sulfate 15 MG eCW1 ([facility]) Morphine Sulfate 15 MG Oral Tablet Morphine Sulfate 15 MG 12:00:00 AM EST active Morphine Sulfate 15 MG eCW1 ([facility]) 15 mg 06/04/2020 12:00:00 AM EST tablet extended release 90 TAKE ONE TABLET BY MOUTH THREE TIMES A DAY EVERY 8 HOURS MAXIMUM DAILY DOSE = 3 TAKE ONE TABLET BY MOUTH THREE TIMES A DAY EVERY 8 HOURS MAXIMUM DAILY DOSE = 3 SOLD: 06/05/2020 [facility] Morphine Sulfate 15 MG Oral Tablet Morphine Sulfate 15 MG 12:00:00 AM EST active Morphine Sulfate 15 MG eCW1 ([facility]) Morphine Sulfate 15 MG Extended Release Oral Tablet Mo rphine Sulfate ER 15 MG Morphine Sulfate ER 15 MG 06/04/2020 12:00:00 AM EST 1.0 {tablet} active Morphine Sulfate ER 15 MG eCW1 ( [facility]) Morphine Sulfate 15 MG Extended Release Oral Tablet Mo rphine Sulfate ER 15 MG Morphine Sulfate ER 15 MG 06/04/2020 12:00:00 AM EST 1.0 {tablet} active Morphine Sulfate ER 15 MG eCW1 ( [facility]) Morphine Sulfate 15 MG Extended Release Oral Tablet Mo rphine Sulfate ER 15 MG Morphine Sulfate ER 15 MG 06/04/2020 12:00:00 AM EST 1.0 {tablet} active Morphine Sulfate ER 15 MG eCW1 ( [facility]) Morphine Sulfate 15 MG Extended Release Oral Tablet Mo rphine Sulfate ER 15 MG Morphine Sulfate ER 15 MG 06/04/2020 12:00:00 AM EST 1.0 {tablet} active Morphine Sulfate ER 15 MG eCW1 ( [facility]) Morphine Sulfate 15 MG Oral Tablet Morphine Sulfate 15 MG 12:00:00 AM EST active Morphine Sulfate 15 MG eCW1 ([facility]) Morphine Sulfate 15 MG Extended Release Oral Tablet Mo rphine Sulfate ER 15 MG Morphine Sulfate ER 15 MG 06/04/2020 12:00:00 AM EST 1.0 {tablet} active Morphine Sulfate ER 15 MG eCW1 ( [facility]) 15 mg 05/17/2020 12:00:00 AM EST tablet 90 TAKE ONE TABLET BY MOUTH EVERY 8 HOURS NEEDED FOR PAIN MAXIMUM DAILY DOSE = 3 TAKE ONE TABLET BY MOUTH EVERY 8 HOURS NEEDED FOR PAIN MAXIMUM DAILY DOSE = 3 SOLD: 05/18/2020 [facility] Morphine Sulfate 15 MG Oral Tablet Morphine Sulfate 15 MG 12:00:00 AM EST active Morphine Sulfate 15 MG eCW1 ([facility]) Morphine Sulfate 15 MG Oral Tablet Morphine Sulfate 15 MG 12:00:00 AM EST active Morphine Sulfate 15 MG eCW1 ([facility]) 15 mg 04/17/2020 12:00:00 AM EST tablet 90 TAKE ONE TABLET BY MOUTH EVERY 8 HOURS NEEDED FOR PAIN MAXIMUM DAILY DOSE = 3 TAKE ONE TABLET BY MOUTH EVERY 8 HOURS NEEDED FOR PAIN MAXIMUM DAILY DOSE = 3 SOLD: 04/18/2020 [facility] Morphine Sulfate 15 MG Oral Tablet Morphine Sulfate 15 MG 12:00:00 AM EST active Morphine Sulfate 15 MG eCW1 ([facility]) Morphine Sulfate 15 MG Oral Tablet Morphine Sulfate 15 MG 12:00:00 AM EST active Morphine Sulfate 15 MG eCW1 ([facility]) 15 mg 04/10/2020 12:00:00 AM EST tablet 21 TAKE ONE TABLET BY MOUTH EVERY 8 HOURS NEEDED MAXIMUM DAILY DOSE = 3 TABLETS TAKE ONE TABLET BY MOUTH EVERY 8 HOURS NEEDED MAXIMUM DAILY DOSE = 3 TABLETS SOLD: 04/10/2020 [facility] Lidocaine 4 % UNK 03/31/2020 12:00:00 AM EST acti ve Lidocaine 4 % eCW1 ([facility]) Lidocaine 4 % UNK 03/31/2020 12:00:00 AM EST suspended Lidocaine 4 % eCW1 ([facility]) Lidocaine 4 % UNK 03/31/2020 12:00:00 AM EST suspended Lidocaine 4 % eCW1 ([facility]) Lidocaine 4 % UNK 03/31/2020 12:00:00 AM EST suspended Lidocaine 4 % eCW1 ([facility]) Lidocaine 4 % UNK 03/31/2020 12:00:00 AM EST acti ve Lidocaine 4 % eCW1 ([facility]) Lidocaine 4 % UNK 03/31/2020 12:00:00 AM EST suspended Lidocaine 4 % eCW1 ([facility]) Lidocaine 4 % UNK 03/31/2020 12:00:00 AM EST acti ve Lidocaine 4 % eCW1 ([facility]) Lidocaine 4 % UNK 03/31/2020 12:00:00 AM EST suspended Lidocaine 4 % eCW1 ([facility]) Lidocaine 4 % UNK 03/31/2020 12:00:00 AM EST suspended Lidocaine 4 % eCW1 ([facility]) Lidocaine 4 % UNK 03/31/2020 12:00:00 AM EST suspended Lidocaine 4 % eCW1 ([facility]) Lidocaine 4 % UNK 03/31/2020 12:00:00 AM EST suspended Lidocaine 4 % eCW1 ([facility]) Lidocaine 4 % UNK 03/31/2020 12:00:00 AM EST suspended Lidocaine 4 % eCW1 ([facility]) Lidocaine 4 % UNK 03/31/2020 12:00:00 AM EST acti ve Lidocaine 4 % eCW1 ([facility]) Lidocaine 4 % UNK 03/31/2020 12:00:00 AM EST suspended Lidocaine 4 % eCW1 ([facility]) Lidocaine 4 % UNK 03/31/2020 12:00:00 AM EST suspended Lidocaine 4 % eCW1 ([facility]) Lidocaine 4 % UNK 03/31/2020 12:00:00 AM EST suspended Lidocaine 4 % eCW1 ([facility]) Lidocaine 4 % UNK 03/31/2020 12:00:00 AM EST acti ve Lidocaine 4 % eCW1 ([facility]) Lidocaine 4 % UNK 03/31/2020 12:00:00 AM EST suspended Lidocaine 4 % eCW1 ([facility]) Lidocaine 4 % UNK 03/31/2020 12:00:00 AM EST suspended Lidocaine 4 % eCW1 ([facility]) Lidocaine 4 % UNK 03/31/2020 12:00:00 AM EST suspended Lidocaine 4 % eCW1 ([facility]) Lidocaine 4 % UNK 03/31/2020 12:00:00 AM EST suspended Lidocaine 4 % eCW1 ([facility]) Lidocaine 4 % UNK 03/31/2020 12:00:00 AM EST acti ve Lidocaine 4 % eCW1 ([facility]) Lidocaine 4 % UNK 03/31/2020 12:00:00 AM EST suspended Lidocaine 4 % eCW1 ([facility]) Lidocaine 4 % UNK 03/31/2020 12:00:00 AM EST suspended Lidocaine 4 % eCW1 ([facility]) Lidocaine 4 % UNK 03/31/2020 12:00:00 AM EST suspended Lidocaine 4 % eCW1 ([facility]) Lidocaine 4 % UNK 03/31/2020 12:00:00 AM EST suspended Lidocaine 4 % eCW1 ([facility]) Lidocaine 4 % UNK 03/31/2020 12:00:00 AM EST suspended Lidocaine 4 % eCW1 ([facility]) Lidocaine 4 % UNK 03/31/2020 12:00:00 AM EST suspended Lidocaine 4 % eCW1 ([facility]) Lidocaine 4 % UNK 03/31/2020 12:00:00 AM EST acti ve Lidocaine 4 % eCW1 ([facility]) Lidocaine 4 % UNK 03/31/2020 12:00:00 AM EST suspended Lidocaine 4 % eCW1 ([facility]) Lidocaine 4 % UNK 03/31/2020 12:00:00 AM EST acti ve Lidocaine 4 % [facility]CW[facility] [place]) Lidocaine 4 % UNK 03/31/2020 12:00:00 AM EST suspended Lidocaine 4 % eCW1 ([facility]) Lidocaine 4 % UNK 03/31/2020 12:00:00 AM EST acti ve Lidocaine 4 % eCW1 ([facility]) Lidocaine 4 % UNK 03/31/2020 12:00:00 AM EST suspended Lidocaine 4 % eCW1 ([facility]) Lidocaine 4 % UNK 03/31/2020 12:00:00 AM EST suspended Lidocaine 4 % eCW1 ([facility]) Lidocaine 4 % UNK 03/31/2020 12:00:00 AM EST acti ve Lidocaine 4 % eCW1 ([facility]) Lidocaine 4 % UNK 03/31/2020 12:00:00 AM EST acti ve Lidocaine 4 % eCW1 ([facility]) 10-325 mg 03/27/2020 12:00:00 AM EST tablet 60 TAKE ONE TABLET BY MOUTH EVERY 8 HOURS NEEDED MAXIMUM DAILY DOSE = 2 (SHOULD LAST 30 DAYS) TAKE ONE TABLET BY MOUTH EVERY 8 HOURS NEEDED MAXIMUM DAILY DOSE = 2 (SHOULD LAST 30 DAYS) SOLD: 03/27/2020 [facility] 0.4 % 03/27/2020 12:00:00 AM EST cream 45 INSERT 1 APPLICATOR VAGINALLY ONCE DAILY FOR 7 DAYS INSERT 1 APPLICATOR VAGINALLY ONCE DAILY FOR 7 DAYS SO LD: 03/27/2020 [facility] Acetaminophen 325 MG / Hydrocodone Janes trate 10 MG Oral Tablet Hydrocodone- Acetaminophen 10-325 MG Hydrocodone-Acetaminophen 10-325 MG 03/24/2020 12:00:0 0 AM EST 1.0 {tablet_as_needed} active Hydrocodone-Acetaminophen 10- 325 MG eCW1 ([facility]) Acetaminophen 325 MG / Hydrocodone Janes trate 10 MG Oral Tablet Hydrocodone- Acetaminophen 10-325 MG Hydrocodone-Acetaminophen 10-325 MG 03/24/2020 12:00:0 0 AM EST 1.0 {tablet_as_needed} active Hydrocodone-Acetaminophen 10- 325 MG eCW1 ([facility]) Acetaminophen 325 MG / Hydrocodone Janes trate 10 MG Oral Tablet Hydrocodone- Acetaminophen 10-325 MG Hydrocodone-Acetaminophen 10-325 MG 03/24/2020 12:00:0 0 AM EST 1.0 {tablet_as_needed} active Hydrocodone-Acetaminophen 10- 325 MG eCW1 ([facility]) Acetaminophen 325 MG / Hydrocodone Janes trate 10 MG Oral Tablet Hydrocodone- Acetaminophen 10-325 MG Hydrocodone-Acetaminophen 10-325 MG 03/24/2020 12:00:0 0 AM EST 1.0 {tablet_as_needed} active Hydrocodone-Acetaminophen 10- 325 MG eCW1 ([facility]) Acetaminophen 325 MG / Hydrocodone Janes trate 10 MG Oral Tablet Hydrocodone- Acetaminophen 10-325 MG Hydrocodone-Acetaminophen 10-325 MG 03/24/2020 12:00:0 0 AM EST 1.0 {tablet_as_needed} active Hydrocodone-Acetaminophen 10- 325 MG eCW1 ([facility]) 150 mg 03/13/2020 12:00:00 AM EST tablet 2 TAKE 1 TABLET BY MOUTH ONCE AND REPEAT IN 48 HOURS TAKE 1 TABLET BY MOUTH ONCE AND REPEAT IN 48 HOURS [facility] 300 mg 03/13/2020 12:00:00 AM EST capsule 30 TAKE ONE CAPSULE BY MOUTH THREE TIMES A DAY FOR 10 DAYS TAKE ONE CAPSULE BY MOUTH THREE TIMES A DAY FOR 10 DAYS SOLD: 03/13/2020 [facility] Lidocaine Hydrochloride 0.05 MG/MG Transdermal Patch [ Lidoderm] Lidoderm 5 % Lidoderm 5 % 02/28/2020 12:00:00 AM EDT suspended Lidoderm 5 % eCW1 ([facility]) Lidocaine Hydrochloride 0.05 MG/MG Transdermal Patch [ Lidoderm] Lidoderm 5 % Lidoderm 5 % 02/28/2020 12:00:00 AM EDT active Lidoderm 5 % eCW1 ([facility]) Lidocaine Hydrochloride 0.05 MG/MG Transdermal Patch [ Lidoderm] Lidoderm 5 % Lidoderm 5 % 02/28/2020 12:00:00 AM EDT active Lidoderm 5 % eCW1 ([facility]) Lidocaine Hydrochloride 0.05 MG/MG Transdermal Patch [ Lidoderm] Lidoderm 5 % Lidoderm 5 % 02/28/2020 12:00:00 AM EDT suspended Lidoderm 5 % eCW1 ([facility]) Lidocaine Hydrochloride 0.05 MG/MG Transdermal Patch [ Lidoderm] Lidoderm 5 % Lidoderm 5 % 02/28/2020 12:00:00 AM EDT suspended Lidoderm 5 % eCW1 ([facility]) Lidocaine Hydrochloride 0.05 MG/MG Transdermal Patch [ Lidoderm] Lidoderm 5 % Lidoderm 5 % 02/28/2020 12:00:00 AM EDT suspended Lidoderm 5 % eCW1 ([facility]) Lidocaine Hydrochloride 0.05 MG/MG Transdermal Patch [ Lidoderm] Lidoderm 5 % Lidoderm 5 % 02/28/2020 12:00:00 AM EDT active Lidoderm 5 % eCW1 ([facility]) Lidocaine Hydrochloride 0.05 MG/MG Transdermal Patch [ Lidoderm] Lidoderm 5 % Lidoderm 5 % 02/28/2020 12:00:00 AM EDT suspended Lidoderm 5 % eCW1 ([facility]) Lidocaine Hydrochloride 0.05 MG/MG Transdermal Patch [ Lidoderm] Lidoderm 5 % Lidoderm 5 % 02/28/2020 12:00:00 AM EDT suspended Lidoderm 5 % eCW1 ([facility]) Lidocaine Hydrochloride 0.05 MG/MG Transdermal Patch [ Lidoderm] Lidoderm 5 % Lidoderm 5 % 02/28/2020 12:00:00 AM EDT suspended Lidoderm 5 % eCW1 ([facility]) Lidocaine Hydrochloride 0.05 MG/MG Transdermal Patch [ Lidoderm] Lidoderm 5 % Lidoderm 5 % 02/28/2020 12:00:00 AM EDT suspended Lidoderm 5 % eCW1 ([facility]) Lidocaine Hydrochloride 0.05 MG/MG Transdermal Patch [ Lidoderm] Lidoderm 5 % Lidoderm 5 % 02/28/2020 12:00:00 AM EDT active Lidoderm 5 % eCW1 ([facility]) Lidocaine Hydrochloride 0.05 MG/MG Transdermal Patch [ Lidoderm] Lidoderm 5 % Lidoderm 5 % 02/28/2020 12:00:00 AM EDT active Lidoderm 5 % eCW1 ([facility]) Lidocaine Hydrochloride 0.05 MG/MG Transdermal Patch [ Lidoderm] Lidoderm 5 % Lidoderm 5 % 02/28/2020 12:00:00 AM EDT active Lidoderm 5 % eCW1 ([facility]) Lidocaine Hydrochloride 0.05 MG/MG Transdermal Patch [ Lidoderm] Lidoderm 5 % Lidoderm 5 % 02/28/2020 12:00:00 AM EDT suspended Lidoderm 5 % eCW1 ([facility]) Lidocaine Hydrochloride 0.05 MG/MG Transdermal Patch [ Lidoderm] Lidoderm 5 % Lidoderm 5 % 02/28/2020 12:00:00 AM EDT suspended Lidoderm 5 % eCW1 ([facility]) Lidocaine Hydrochloride 0.05 MG/MG Transdermal Patch [ Lidoderm] Lidoderm 5 % Lidoderm 5 % 02/28/2020 12:00:00 AM EDT active Lidoderm 5 % eCW1 ([facility]) Lidocaine Hydrochloride 0.05 MG/MG Transdermal Patch [ Lidoderm] Lidoderm 5 % Lidoderm 5 % 02/28/2020 12:00:00 AM EDT suspended Lidoderm 5 % eCW1 ([facility]) Lidocaine Hydrochloride 0.05 MG/MG Transdermal Patch [ Lidoderm] Lidoderm 5 % Lidoderm 5 % 02/28/2020 12:00:00 AM EDT suspended Lidoderm 5 % eCW1 ([facility]) Lidocaine Hydrochloride 0.05 MG/MG Transdermal Patch [ Lidoderm] Lidoderm 5 % Lidoderm 5 % 02/28/2020 12:00:00 AM EDT suspended Lidoderm 5 % eCW1 ([facility]) Lidocaine Hydrochloride 0.05 MG/MG Transdermal Patch [ Lidoderm] Lidoderm 5 % Lidoderm 5 % 02/28/2020 12:00:00 AM EDT active Lidoderm 5 % eCW1 ([facility]) Lidocaine Hydrochloride 0.05 MG/MG Transdermal Patch [ Lidoderm] Lidoderm 5 % Lidoderm 5 % 02/28/2020 12:00:00 AM EDT suspended Lidoderm 5 % eCW1 ([facility]) Lidocaine Hydrochloride 0.05 MG/MG Transdermal Patch [ Lidoderm] Lidoderm 5 % Lidoderm 5 % 02/28/2020 12:00:00 AM EDT suspended Lidoderm 5 % eCW1 ([facility]) Lidocaine Hydrochloride 0.05 MG/MG Transdermal Patch [ Lidoderm] Lidoderm 5 % Lidoderm 5 % 02/28/2020 12:00:00 AM EDT suspended Lidoderm 5 % eCW1 ([facility]) Lidocaine Hydrochloride 0.05 MG/MG Transdermal Patch [ Lidoderm] Lidoderm 5 % Lidoderm 5 % 02/28/2020 12:00:00 AM EDT active Lidoderm 5 % eCW1 ([facility]) Lidocaine Hydrochloride 0.05 MG/MG Transdermal Patch [ Lidoderm] Lidoderm 5 % Lidoderm 5 % 02/28/2020 12:00:00 AM EDT active Lidoderm 5 % eCW1 ([facility]) Lidocaine Hydrochloride 0.05 MG/MG Transdermal Patch [ Lidoderm] Lidoderm 5 % Lidoderm 5 % 02/28/2020 12:00:00 AM EDT suspended Lidoderm 5 % eCW1 ([facility]) Lidocaine Hydrochloride 0.05 MG/MG Transdermal Patch [ Lidoderm] Lidoderm 5 % Lidoderm 5 % 02/28/2020 12:00:00 AM EDT active Lidoderm 5 % eCW1 ([facility]) Lidocaine Hydrochloride 0.05 MG/MG Transdermal Patch [ Lidoderm] Lidoderm 5 % Lidoderm 5 % 02/28/2020 12:00:00 AM EDT suspended Lidoderm 5 % eCW1 ([facility]) Lidocaine Hydrochloride 0.05 MG/MG Transdermal Patch [ Lidoderm] Lidoderm 5 % Lidoderm 5 % 02/28/2020 12:00:00 AM EDT active Lidoderm 5 % eCW1 ([facility]) Lidocaine Hydrochloride 0.05 MG/MG Transdermal Patch [ Lidoderm] Lidoderm 5 % Lidoderm 5 % 02/28/2020 12:00:00 AM EDT suspended Lidoderm 5 % eCW1 ([facility]) Lidocaine Hydrochloride 0.05 MG/MG Transdermal Patch [ Lidoderm] Lidoderm 5 % Lidoderm 5 % 02/28/2020 12:00:00 AM EDT active Lidoderm 5 % eCW1 ([facility]) Lidocaine Hydrochloride 0.05 MG/MG Transdermal Patch [ Lidoderm] Lidoderm 5 % Lidoderm 5 % 02/28/2020 12:00:00 AM EDT suspended Lidoderm 5 % eCW1 ([facility]) Lidocaine Hydrochloride 0.05 MG/MG Transdermal Patch [ Lidoderm] Lidoderm 5 % Lidoderm 5 % 02/28/2020 12:00:00 AM EDT suspended Lidoderm 5 % eCW1 ([facility]) Lidocaine Hydrochloride 0.05 MG/MG Transdermal Patch [ Lidoderm] Lidoderm 5 % Lidoderm 5 % 02/28/2020 12:00:00 AM EDT active Lidoderm 5 % eCW1 ([facility]) Lidocaine Hydrochloride 0.05 MG/MG Transdermal Patch [ Lidoderm] Lidoderm 5 % Lidoderm 5 % 02/28/2020 12:00:00 AM EDT active Lidoderm 5 % eCW1 ([facility]) Lidocaine Hydrochloride 0.05 MG/MG Transdermal Patch [ Lidoderm] Lidoderm 5 % Lidoderm 5 % 02/28/2020 12:00:00 AM EDT suspended Lidoderm 5 % eCW1 ([facility]) Lidocaine Hydrochloride 0.05 MG/MG Transdermal Patch [ Lidoderm] Lidoderm 5 % Lidoderm 5 % 02/28/2020 12:00:00 AM EDT active Lidoderm 5 % eCW1 ([facility]) Lidocaine Hydrochloride 0.05 MG/MG Transdermal Patch [ Lidoderm] Lidoderm 5 % Lidoderm 5 % 02/28/2020 12:00:00 AM EDT active Lidoderm 5 % eCW1 ([facility] [place]) Lidocaine Hydrochloride 0.05 MG/MG Transdermal Patch [ Lidoderm] Lidoderm 5 % Lidoderm 5 % 02/28/2020 12:00:00 AM EDT active Lidoderm 5 % eCW1 ([facility]) Lidocaine Hydrochloride 0.05 MG/MG Transdermal Patch [ Lidoderm] Lidoderm 5 % Lidoderm 5 % 02/28/2020 12:00:00 AM EDT suspended Lidoderm 5 % eCW1 ([facility] [place]) Lidocaine Hydrochloride 0.05 MG/MG Transdermal Patch [ Lidoderm] Lidoderm 5 % Lidoderm 5 % 02/28/2020 12:00:00 AM EDT suspended Lidoderm 5 % eCW1 ([facility]) Lidocaine Hydrochloride 0.05 MG/MG Transdermal Patch [ Lidoderm] Lidoderm 5 % Lidoderm 5 % 02/28/2020 12:00:00 AM EDT suspended Lidoderm 5 % eCW1 ([facility]) Lidocaine Hydrochloride 0.05 MG/MG Transdermal Patch [ Lidoderm] Lidoderm 5 % Lidoderm 5 % 02/28/2020 12:00:00 AM EDT active Lidoderm 5 % eCW1 ([facility]) Lidocaine Hydrochloride 0.05 MG/MG Transdermal Patch [ Lidoderm] Lidoderm 5 % Lidoderm 5 % 02/28/2020 12:00:00 AM EDT suspended Lidoderm 5 % eCW1 ([facility]) 10-325 mg 02/27/2020 12:00:00 AM EDT tablet 60 TAKE ONE TABLET BY MOUTH EVERY 8 HOURS NEEDED MAXIMUM DAILY DOSE = 2 TABLETS TAKE ONE TABLET BY MOUTH EVERY 8 HOURS NEEDED MAXIMUM DAILY DOSE = 2 TABLETS SOLD: 02/27/2020 [facility] Acetaminophen 325 MG / Hydrocodone Janes trate 10 MG Oral Tablet Hydrocodone- Acetaminophen 10-325 MG Hydrocodone-Acetaminophen 10-325 MG 02/21/2020 12:00:0 0 AM EDT 1.0 {tablet_as_needed} active Hydrocodone-Acetaminophen 10- 325 MG eCW1 ([facility]) Acetaminophen 325 MG / Hydrocodone Janes trate 10 MG Oral Tablet Hydrocodone- Acetaminophen 10-325 MG Hydrocodone-Acetaminophen 10-325 MG 02/21/2020 12:00:0 0 AM EDT 1.0 {tablet_as_needed} active Hydrocodone-Acetaminophen 10- 325 MG eCW1 ([facility] [place]) Acetaminophen 325 MG / Hydrocodone Janes trate 10 MG Oral Tablet Hydrocodone- Acetaminophen 10-325 MG Hydrocodone-Acetaminophen 10-325 MG 02/21/2020 12:00:0 0 AM EDT 1.0 {tablet_as_needed} active Hydrocodone-Acetaminophen 10- 325 MG eCW1 ([facility]) Acetaminophen 325 MG / Hydrocodone Janes trate 10 MG Oral Tablet Hydrocodone- Acetaminophen 10-325 MG Hydrocodone-Acetaminophen 10-325 MG 02/21/2020 12:00:0 0 AM EDT 1.0 {tablet_as_needed} active Hydrocodone-Acetaminophen 10- 325 MG eCW1 ([facility]) Acetaminophen 325 MG / Hydrocodone Janes trate 10 MG Oral Tablet Hydrocodone- Acetaminophen 10-325 MG Hydrocodone-Acetaminophen 10-325 MG 02/21/2020 12:00:0 0 AM EDT 1.0 {tablet_as_needed} active Hydrocodone-Acetaminophen 10- 325 MG eCW1 ([facility] [place]) Acetaminophen 325 MG / Hydrocodone Janes trate 10 MG Oral Tablet Hydrocodone- Acetaminophen 10-325 MG Hydrocodone-Acetaminophen 10-325 MG 02/21/2020 12:00:0 0 AM EDT 1.0 {tablet_as_needed} active Hydrocodone-Acetaminophen 10- 325 MG eCW1 ([facility]) Acetaminophen 325 MG / Hydrocodone Janes trate 10 MG Oral Tablet Hydrocodone- Acetaminophen 10-325 MG Hydrocodone-Acetaminophen 10-325 MG 02/21/2020 12:00:0 0 AM EDT 1.0 {tablet_as_needed} active Hydrocodone-Acetaminophen 10- 325 MG eCW1 ([facility] [place]) Acetaminophen 325 MG / Hydrocodone Janes trate 10 MG Oral Tablet Hydrocodone- Acetaminophen 10-325 MG Hydrocodone-Acetaminophen 10-325 MG 02/21/2020 12:00:0 0 AM EDT 1.0 {tablet_as_needed} active Hydrocodone-Acetaminophen 10- 325 MG eCW1 ([facility]) Acetaminophen 325 MG / Hydrocodone Janes trate 10 MG Oral Tablet Hydrocodone- Acetaminophen 10-325 MG Hydrocodone-Acetaminophen 10-325 MG 02/21/2020 12:00:0 0 AM EDT 1.0 {tablet_as_needed} active Hydrocodone-Acetaminophen 10- 325 MG eCW1 ([facility]) Acetaminophen 325 MG / Hydrocodone Janes trate 10 MG Oral Tablet Hydrocodone- Acetaminophen 10-325 MG Hydrocodone-Acetaminophen 10-325 MG 02/21/2020 12:00:0 0 AM EDT 1.0 {tablet_as_needed} active Hydrocodone-Acetaminophen 10- 325 MG eCW1 ([facility]) 5-325 mg 02/16/2020 12:00:00 AM EDT tablet 45 TAKE ONE TABLET BY MOUTH EVERY 8 HOURS NEEDED FOR PAIN MAXIMUM DAILY DOSE = 3 TABLETS (45 TABLETS WILL LAST 30 DAYS) TAKE ONE TABLET BY MOUTH EVERY 8 HOURS A S NEEDED FOR PAIN MAXIMUM DAILY DOSE = 3 TABLETS (45 TABLETS WILL LAST 30 DAYS) SOLD: 02/16/2020 [facility] Acetaminophen 325 MG / Hydrocodone Janes trate 5 MG Oral Tablet [[place]] [place] 5- 325 MG [place] 5-325 MG 02/12/2020 12:00:00 AM EDT 1.0 {tablet_as_needed} active [place] 5-325 MG eCW1 ([facility]) 10-325 mg 01/18/2020 12:00:00 AM EDT tablet 60 TAKE 1 TABLET BY MOUTH EVERY 8 HOURS NEEDED FOR PAIN MAXIMUM DAILY DOSE = 3 (SHOULD LAST 30 DAYS) TAKE 1 TABLET BY MOUTH EVERY 8 HOURS NEEDED FOR PAIN MAXIMUM DAILY DOSE = 3 (SHOULD LAST 30 DAYS) SOLD: 01/18/2020 [facility] Insurance Providers Payer name Policy type / Coverage type Policy ID Covered constitution party ID Covered constitution party's relationship to quezada Policy [place] Plan Information MEDICARE [id number] SP [id number] A MEDICAID [id number] SP [id number] [facility] [id number] Rafia [id number] UHC UNITED MEDICARE DUAL G [id number] Self [id number] EMEDNY [id number] SP [id number] [facility] COMMUN[facility] PLAN [facility] [id number] SP [id number] [facility] [id number] SP [id number] MEDICARE A [id number] Self [id number] MEDICARE PART A [facility] [id number] 18 [id number] UNHC MEDICARE COMPLETE - O/P [id number] 18 [id number] MEDICAID [id number] SP [id number] MEDICARE C [id number] S [id number] MEDICARE COMPLETE-[facility] O [id number] S [id number] MEDICAID M [id number] S [id number] [facility] O [id number] S [id number] MEDICARE COMPLETE [id number] SP [id number] MEDICARE [id number] SP [id number] ANSI-Medicaid [id number] ANSI-Medicare Part B [id number] ANSI-Medicare Part B [id number] ANSI-Medicare Part B [id number] ANSI-Medicare Part B [id number] ANSI-Medicaid [id number] ANSI-Medicare Part B [id number] ANSI-Medicaid [id number] ANSI-Medicare Part B [id number] ANSI-Medicaid [id number] ANSI-Medicare Part B [id number] ANSI-Medicare Part B [id number] ANSI-Medicaid [id number] ANSI-Medicare Part B [id number] ANSI-Medicare Part B [id number] ANSI-Medicaid [id number] ANSI-Medicare Part B [id number] ANSI-Medicare Part B [id number] MEDICARE [id number] A ANSI-Medicare Part B [id number] ANSI-Medicaid [id number] ANSI-Medicare Part B [id number] MEDICARE C [id number] S [id number] A MEDICAID UNAVAILABLE UNAVAILA BLE MEDICAID [id number] SP [id number] Medicaid [facility] Part B [id number] Self Medicare Natl Gov't Servi Medicare Primary [id number] [facility] [id number] SP [id number] SELF PAY UNAVAILABLE SP UNAVAILA BLE [facility] MEDICAID [id number] SP [id number] A MEDICARE [id number] SP [id number] MEDICARE COMPLETE [id number] SP [id number] Problems, Conditions, and Diagnoses Code Display Name Description Problem Type Effective Dates Data Source(s) R00.2 Palpitations Palpitations Diagnosis 06/11/2020 01:49:[address] 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, thoracic region Other intervertebral disc displacement, thoracic region Diagnosis 01/29 01:22:00 PM EDT [facility] M5414 Radiculopathy, thoracic region Radiculopathy, thoracic region Diagnosis 02/13/2020 01:22:00 PM EDT [facility] 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, unspec ified cervical region Other cervical disc displacement, unspecified cervical region Diagnosis 02/13/2020 01:22:00 PM EDT [facility] M5412 Radiculopathy, cervical region Radiculopathy, cervical region Diagnosis 02/13/2020 01:22:00 PM EDT [facility] [id number] Carpal tunnel syndrome Carpal tunnel syndrome Problem 02/05/2021 12:00:00 AM EDT LYRIC ([facility], ) [id number] Numbness of hand Numbness of hand Problem 02/05/2021 12 :00:00 AM EDT MEDENT ([facility], ) [id number] Hand pain Hand pain Problem 02/05/2021 12:00:00 AM ED T [facility] ([facility], ) R00.2 [id number] Intermittent palpitations Problem 04/13/2020 12:00:00 AM EST eCW1 ([facility]) Z53.20 [id number] Screening mammography declined Problem 04/13/2020 12:00:00 AM EST eCW1 ([facility]) Z96.89 [id number] Spinal cord stimulator status Problem 04/10/2020 12:00:00 AM EST eCW1 ([facility]) Surgeries/Procedures Procedure Description Date Indications Data Source(s) OFFICE OUTPATIENT VISIT 25 MINUTES 02/26/2021 12:00:00 AM EDT [facility] ([facility], ) Needle electromyography, each extremity, with related paraspinal areas, when performed, done with nerve conduction, amplitude and latency/velocity study; complete, five or more muscles studied, innervated by three or more nerves or four or more spinal levels (list separately in addition to the code for primary procedure). 02/09/2021 12:00:00 AM EDT MEDEN T ([facility], ) Needle electromyography, each extremity, with related paraspinal areas, when performed, done with nerve conduction, amplitude and latency/velocity study; complete, five or more muscles studied, innervated by three or more nerves or four or more spinal levels (list separately in addition to the code for primary procedure). 02/09/2021 12:00:00 AM EDT MEDEN T ([facility], ) Needle Electromyography Non Extremity Done With Nerve Conduc tion 02/09/2021 12:00:00 AM EDT [facility] ([facility], ) Needle Electromyography Non Extremity Done With Nerve Conduc tion 02/09/2021 12:00:00 AM EDT [facility] ([facility], ) 16136 Nerve conduction studies 13 or more studies NEW 201202/09/2021 12:00:00 AM EDT MEDENT ([facility], ) Needle electromyography, each extremity, with related paraspinal areas, when performed, done with nerve conduction, amplitude and latency/velocity study; complete, five or more muscles studied, innervated by three or more nerves or four or more spinal levels (list separately in addition to the code for primary procedure). 02/04/2021 12:00:00 AM EDT MEDEN T ([facility], ) Needle electromyography, each extremity, with related paraspinal areas, when performed, done with nerve conduction, amplitude and latency/velocity study; complete, five or more muscles studied, innervated by three or more nerves or four or more spinal levels (list separately in addition to the code for primary procedure). 02/04/2021 12:00:00 AM EDT [facility] T ([facility], ) [address] Nerve conduction studies 13 or more studies NEW 201202/04/2021 12:00:00 AM EDT [facility] ([facility], ) OFFICE OUTPATIENT NEW 45 MINUTES 01/26/2021 12:00:00 A M EDT [facility] ([facility], ) OFFICE OUTPATIENT NEW 30 MINUTES 01/01/2021 12:00:00 A M EDT [facility] ([facility], ) Results ID Date Data Source [id number] 03/03/2021 10:39:00 AM EDT [facility] ([facility], ) Name Value Range Interpretation Code Description Data Quyen rce(s) Supporting Document(s) Reagin Ab [Presence] in Serum by [facility] ([facility]) <content>note:<nlbl:demographic_changed> </content>
<content></content> Rheumatoid factor [Units/volume] in Serum or Plasma Laboratory test result MEDENT ([facility], ) <content>note:<nlbl:demographic_changed> </content>
<content></content> ID Date Data Source [id number] 03/03/2021 10:39:00 AM EDT MEDENT ([facility], ) Name Value Range Interpretation Code Description Data Quyen rce(s) Supporting Document(s) Vitamin B12 Level 686 pg/mL MEDENT ([facility], ) VITAMIN B12 NORMAL RANGE NORMAL 247 - 911 PG/ML INDETERMINATE 211 - 246 PG/ML DEFICIENT LESS THAN 211 PG/ML Folate Laboratory test result MEDENT ([facility]) FOLATE NORMAL RANGE NORMAL GREATER THAN 5.4 NG/ML INDETERMINATE 3.4-5.4 NG/ML DEFICIENT LESS THAN 3.4 NG/ML ID Date Data Source [id number] 03/03/2021 10:39:00 AM EDT MEDENT ([facility]) Name Value Range Interpretation Code Description Data Quyen rce(s) Supporting Document(s) Albumin % 58.4 % 55.8-66.1 MEDENT ([facility]) Vpzyz-4-Hegjzhxj % 4.3 % 2.9-4.9 MEDENT ([facility]) Ihtf-5-Pwzhtmyly % 5.2 % 4.7-7.2 MED[facility] ([facility]) Jbbjd-4-Rstsdyfea % 10.2 % 7.1-11.8 MED[facility] ([facility]) Gamma Globulin % 16.9 % 11.1-18.8 MED[facility] ([facility]) Albumin 4.38 GM/DL 3.29-5.55 MED[facility] ([facility]) Saqi-8-Zxtpvwwlp % 5.0 % 3.2-6.5 MED[facility] ([facility]) Ejat-0-Pvwtuscpr 0.39 GM/DL 0.28-0.60 MED[facility] ([facility]) Phrvq-7-Gfwwrguwp 0.77 GM/DL 0.42-0.99 [facility] Fvsms-6-Hpgviwafi 0.32 GM/DL 0.17-0.41 [facility] ([facility]) Gamma Globulins 1.27 GM/DL 0.65-1.58 MED[facility] ([facility]) Total Protein 7.5 GM/DL 6.4-8.2 MED[facility] ([facility]) Efmm-4-Ujredckyc 0.38 GM/DL 0.19-0.55 MED[facility] ([facility]) Laboratory test finding (navigational concept) Laboratory test result MEDENT ([facility]) Spep Interpretation Laboratory test result MED[facility] ([facility]) NO M-SPIKE(S)NOTED. ID Date Data Source [id number] 03/03/2021 10:39:00 AM EDT MED[facility] ([facility], ) Name Value Range Interpretation Code Description Data Quyen rce(s) Supporting Document(s) Blood Urea Nitrogen 16 mg/dL 7-18 MED[facility] ([facility]) Glucose, Fasting 81 mg/dL 70-100 MED[facility] ([facility]) Sodium Level 138 meq/L 136-145 MED[facility] ([facility]) Glomerular Filtration Rate Laboratory test result MEDENT ([facility]) <content>Units are mL/min/1.73 m2</content>
<content></content>
<content>Chronic Kidney Disease Staging per NKF:</content>
<content></content>
<content>Stage I & II GFR >=60 Normal to Mildly Decreased</content>
<content>Stage III GFR 30- 59 Moderately Decreased</content>
<content>Stage IV GFR 15-29 Severely Decreased</content>
<content>Stage V GFR <15 Very Little GFR Left</content>
<content>ESRD GFR <15 on [employer]ST [employer] SUPERVISOR</content>
<content></content> Creatinine For GFR 0.81 mg/dL 0.55-1.30 MED[facility] ([facility]) Potassium Serum 3.6 meq/L 3.5-5.1 MED[facility] ([facility]) Carbon Dioxide Level 30 meq/L 21-32 MED[facility] ([facility]) Chloride Level 104 meq/L 98-107 MED[facility] ([facility]) Alt/SGPT 25 U/L 12-78 MED[facility] ([facility]) Anion Gap 4 meq/L 8-16 MED[facility] ([facility]) Calcium Level 9.3 mg/dL 8.5-10.1 [facility] ([facility]) Ast/Sgot 17 U/L 7-37 MED[facility] ([facility]) Alkaline Phosphatase 90 U/L 45-117 MED[facility] ([facility]) Bilirubin,Total 0.4 mg/dL 0.2-1.0 MED[facility] ([facility]) Total Protein 7.5 GM/DL 6.4-8.2 MED[facility] ([facility], ) Albumin 3.8 GM/DL 3.2-5.2 [facility] Albumin/Globulin Ratio 1.0 1.2-2.2 [facility] ID Date Data Source [id number] 03/03/2021 10:39:00 AM EDT MED[facility] ([facility]) Name Value Range Interpretation Code Description Data Quyen rce(s) Supporting Document(s) Erythrocyte sedimentation rate by 2H Westergren method 20 mm/hr 0-2 0 [facility] ID Date Data Source [id number] 03/03/2021 10:39:00 AM EDT [facility] Name Value Range Interpretation Code Description Data Quyen rce(s) Supporting Document(s) White Blood Count 5.4 10 4.0-10.0 [facility] Red Blood Count 4.61 10 4.00-5.40 [facility] Mean Corpuscular Volume 96.1 fl 80.0-96.0 M EDENT ([facility]) Hematocrit 44.3 % 36.0-47.0 [facility] Hemoglobin 14.8 g/dL 12.0-15.5 [facility] ([facility] Mean Corpuscular HGB Conc 33.4 g/dL 32.0-36.5 MED[facility] ([facility]) Mean Corpuscular Hemoglobin 32.1 pg 27.0-33.0 MED[facility] ([facility]) Red Cell Distribution Width 11.9 % 11.5-14.5 [facility] Lymph % 29.6 % 24.0-44.0 MED[facility] ([facility], ) Neutrophils % 60.4 % 36.0-66.0 MED[facility] ([facility], ) Platelet Count, Automated 299 10 150-450 [facility] Eos % 1.1 % 0.0-3.0 [facility] Baso % 0.9 % 0.0-1.0 MED[facility] ([facility], ) Cotton % 8.0 % 2.0-8.0 MED[facility] ([facility]) Immature Granulocyte % 0.0 % 0-3.0 MED[facility] ([facility]) Neutrophils # 3.3 10 1.5-8.5 MED[facility] ([facility]) Nucleated Red Blood Cell % 0.0 % 0-0 MED ENT ([facility]) Lymph # 1.6 10 1.5-5.0 [facility] ([facility], ) Baso # 0.1 10 0.0-0.2 [facility] ([facility]) Cotton # 0.4 10 0.0-0.8 [facility] ([facility]) Eos # 0.1 10 0.0-0.5 [facility] ([facility]) ID Date Data Source [id number] 03/03/2021 10:39:00 AM EDT MED[facility] ([facility]) Name Value Range Interpretation Code Description Data Quyen rce(s) Supporting Document(s) Hemoglobin A1c 5.1 % MED[facility] ([facility]) <content>REFERENCE RANGES:</content><br/ ><content></content>
<content><=5.6% NORMAL</content>
<content>5.7-6.4% SUGGESTS IMPAIRED GLUCOSE METABOLISM/PREDIABETIC</content>
<content>>= 6.5% ABNORMAL</content>
<content></content> Estimated Average Glucose 100 mg/dL 60-110 MED[facility] ([facility]) ID Date Data Source Urine Test Group 08/03/2020 12:00:00 AM EDT eCW1 ([facility]) Name Value Range Interpretation Code Description Data Quyen rce(s) Supporting Document(s) NEGATIVE 10 6-Acetylmorphine Screen eCW1 ( [facility]) NEGATIVE 1000 Amphetamine Screen eCW1 ([facility]) NEGATIVE 5 Buprenorphine Screen eCW1 ([facility]) NEGATIVE 200 Barbiturates Screen eCW1 ([facility]) NEGATIVE 300 Cocaine Screen eCW1 ([facility]) NEGATIVE 200 Benzodiazepines Screen eCW1 ([facility] NEGATIVE 100 Carisoprodol Screen eCW1 ([facility]) NEGATIVE 2 Fentanyl Screen eCW1 ([facility]) NEGATIVE 1000 Gabapentin Screen eCW1 (Pending sale to [facility]) POSITIVE 300 Opiates Screen eCW1 ([facility]) NEGATIVE 300 Methadone Screen eCW1 ([facility]) NEGATIVE 100 Oxycodone Screen eCW1 ([facility]) NEGATIVE 25 Phencyclidine Screen eCW1 ([facility]) 7 4.5 - 8.9 pH eCW1 ([facility]) 45.3 >= 20 mg/dL Creatinine eCW1 ([facility]) NEGATIVE 150 TCA Antidepressants Scree n eCW1 ([facility]) NORMAL >= 20 mg/dL CREATININE/SPECIFIC GRAV ITY eCW1 ([facility]) NEGATIVE 20 Cannabinoids Screen eCW1 ([facility]) NEGATIVE 100 Tramadol Screen eCW1 ([facility]) NEGATIVE 500 MDMA Screen eCW1 ([facility]) ID Date Data Source Opiates Reflex SHS, UR 08/03/2020 12:00:00 AM EDT eCW1 ([facility]) Name Value Range Interpretation Code Description Data Quyen rce(s) Supporting Document(s) NEGATIVE 25 Codeine eCW1 ([facility]) NEGATIVE 25 Hydrocodone eCW1 ([facility]) NEGATIVE 50 Norhydrocodone eCW1 ([facility]) [address]56 25 Morphine eCW1 ([facility]) 113 25 Hydromorphone eCW1 ([facility]) ID Date Data Source [id number] 07/06/2020 12:00:00 AM EST [facility] Name Value Range Interpretation Code Description Data Quyen rce(s) Supporting Document(s) SARS-CoV2 Rapid Antigen Negative [facility] and reported by [facility]. ID Date Data Source [id number] 03/29/2020 12:00:00 AM EST [facility] Name Value Range Interpretation Code Description Data Quyen rce(s) Supporting Document(s) SARS-CoV2 Rapid Antigen [facility] This lab was ordered by [facility] and reported by [facility]. ID Date Data Source [id number] 02/17/2020 10:22:00 AM EDT [facility] [address] [place] [address] PHONE: [phone] FAX: [phone] Name .................. : SHANI Lovell Acct Number.................. : [id number] ROOM. ................. : MR Number ................... : [id number] Stay type ............. : O/P Discharge Date......... ... : 02/13/20 Admit Date ......... : 02/13/20 Admit Phys .................... : EVIE BAUER Date of ....... : 1975 Family Phys ................... : NON STAFF Phone .................. : [phone] Age ................................ : 45 Film# .................. .:[id number] Sex ................................. : F Unsigned transcriptions are preliminary reports and do not represent a medical or legal document MRI THORACIC SPINE W/O CONTRA [id number] COMPLETE:02/13/20 15:13 [facility] 99585 (SPINE PROC REASON: PAIN MRI OF THE THORACIC SPINE WITHOUT CONTRAST: FINDINGS: There is no acute fracture, subluxation or focal osseous lesion seen. Mild degenerative spondylosis is present. C7-T1, T1-2, T3-4 and T4-5 intervertebral disc spaces are unremarkable. At T5-6, a small central disc protrusion is seen with superior disc extrusion with maximal AP diameter of 3 mm. Mild lateral recess narrowings are noted without central canal stenosis or spinal cord contact. Disc protrusion or superior disc extrusion is at T4-5, T5-6, T6-7 and T7-8. Small central disc protrusions are noted measuring 2 mm in AP diameter with central canal stenosis or lateral recess narrowing. At T8-9, central disc protrusion is seen. The AP diameter is 3 mm, resulting in contour but not distortion of spinal cord contour. Mild lateral recess narrowing is present. At T9-10 and T11-12, tiny central disc protrusions are noted with AP diameter of 1 mm, not resulting in spinal cord contact, central canal stenosis or lateral recess narrowing. T10-11 and T12-L1 intervertebral disc spaces are unremarkable. Spinal cord signal abnormality is not seen. IMPRESSION: Multiple small disc protrusions noted, as described above. Disc protrusion is largest at T8-9. Disc protrusion at T4-5 is associated with a small superior disc extrusion. Electronically Reviewed and Signed By Evan Douglas MD , 02/17/20 10:22, KG [address] [place] [address] PHONE: [phone] FAX: [phone] Name .................. : SHANI Lovell Acct Number.................. : [id number] ROOM. ................. : MR Number ................... : [id number] Stay type ............. : O/P Discharge Date......... ... : 02/13/20 Admit Date ......... : 02/13/20 Admit Phys .................... : EVIE BAUER Date of ....... : 1975 Family Phys ................... : NON STAFF Phone .................. : [phone] Age ................................ : 45 Film# .................. .:[id number] Sex ................................. : F Unsigned transcriptions are preliminary reports and do not represent a medical or legal document MRI THORACIC SPINE W/O CONTRA [id number] COMPLETE:02/13/20 15:13 [facility] 42482 (SPINE PROC REASON: PAIN Transcribe Initials: DZ , Transcribe Date: 02/14/20 03:20, Dictation Date: Copy for: EVIE JACQUES via fax Copy for: [address] [place] [address] REC Page 2 of 2 Name Value Range Interpretation Code Description Data Quyen rce(s) Supporting Document(s) ID Date Data Source [id number] 02/17/2020 10:22:[place] [address] PHONE: [phone] FAX: [phone] Name .................. : SHANI Lovell Acct Number.................. : [id number] ROOM. ................. : Number ................... : [id number] Stay type ............. : O/P Discharge Date......... ... : 02/13/20 Admit Date ......... : 02/13/20 Admit Phys .................... : EVIE BAUER Date of ....... : 1975 Family Phys ................... : NON STAFF Phone .................. : [phone] Age ................................ : 45 Film# .................. .:[id number] Sex ................................. : F Unsigned transcriptions are preliminary reports and do not represent a medical or legal document MRI CERVICAL SPINE W/O CONTRA [id number] COMPLETE:02/13/20 15:13 [facility] 74580 (SPINE PROC REASON: PAIN MRI OF THE CERVICAL SPINE WITHOUT CONTRAST: FINDINGS: There is almost complete effusion of the vertebral bodies of C4 and C5. Acute fracture, destructive osseous lesion or dislocation is not seen. C2-3: Mild spondylosis is seen. C3- 4: Broad-based disc protrusion is seen with mild spondylosis that resulted in moderate lateral recess narrowing without central canal stenosis or spinal cord contact. C4-5: There is partial effusion of the vertebral body endplates without central canal stenosis or lateral recess narrowing. C5-6 and C6-7: Spondylosis and broad-based disc protrusions are noted that resulted in mild lateral recess narrowing and mild neuroforaminal narrowing. Central canal stenosis or spinal cord contact is not seen. C7-T1 intervertebral disc space is unremarkable. Spinal cord pathology is not seen. The visualized intracranial contents are unremarkable. The paraspinal soft tissues are unremarkable. IMPRESSION: Partial fusion C4 and C5 vertebral bodies. Broad-based disc protrusion at C3-4, C5-6 and C6-7, as described above. Page 1 of 2 [facility] [address] [place] [address] PHONE: [phone] FAX: [phone] Name .................. : SHANI Lovell Acct Number.................. : [id number] ROOM. ................. : MR Number ................... : [id number] Stay type ............. : O/P Discharge Date......... ... : 02/13/20 Admit Date ......... : 02/13/20 Admit Phys .................... : EVIE BAUER Date of ....... : 1975 Family Phys ................... : NON STAFF Phone .................. : [phone] Age ................................ : 45 Film# .................. .:[id number] Sex ................................. : F Unsigned transcriptions are preliminary reports and do not represent a medical or legal document MRI CERVICAL SPINE W/O CONTRA [id number] COMPLETE:02/13/20 15:13 [facility] 04347 (SPINE PROC REASON: PAIN Spinal cord pathology not seen. Electronically Reviewed and Signed By Evan Douglas MD , 02/17/20 10:22, K[facility] Transcribe Initials: BETTYE , Transcribe Date: 02/14/20 03:15, Dictation Date: Copy for: EVIE JACQUES via fax Copy for: [address] [place] [address] REC Page 2 of 2 Name Value Range Interpretation Code Description Data Quyen rce(s) Supporting Document(s) ID Date Data Source [id number] 02/14/2020 10:13:00 AM EDT [facility] [address] [place] [address] PHONE: [phone] FAX: [phone] Name .................. : SHANI Lovell Acct Number.................. : [id number] ROOM. ................. : TR-07 Number ................... : [id number] Stay type ............. : E/R Discharge Date......... ... : 02/13/20 Admit Date ......... : 02/13/20 Admit Phys .................... : JEFF MASON Date of ....... : 1975 Family Phys ................... : NON STAFF Phone .................. : [phone] Age ................................ : 45 Film# .................. .:[id number] Sex ................................. : F Unsigned transcriptions are preliminary reports and do not represent a medical or legal document CHEST 2 VIEWS 71870 COMPLETE:02/13/20 17:02 [facility] [address]81 Reason(s): Shortness of Breath CHEST X-RAY: PA AND LATERAL VIEWS HISTORY: Shortness of breath. COMPARISON: None. FINDINGS: Normal heart size and mediastinal contours. Normal pulmonary vessels. Clear lungs. Normal pleural effusion. Thoracic spinal cord stimulator and electrodes are present. IMPRESSION: Normal active disease is seen in the chest. Electronically Reviewed and Signed By Miguelito Garcia MD , 02/14/20 10:13, APM Transcribe Initials: BETTYE , Transcribe Date: 02/13/20 21:34, Dictation Date: Copy for: TEZ SNEED via fax Copy for: EMERGENCY DEPT via modem Copy for: 710 MED REC DISCHARGED Page 1 of 1 Name Value Range Interpretation Code Description Data Quyen rce(s) Supporting Document(s) ID Date Data Source [id number] 02/13/2020 03:30:00 PM EDT [facility] 1 OrderSheet [facility] Emergency Department [address] [place] [address] Phone #: ext- [phone] 02/13/2020 15:19 Patient: SAEED MCLEOD Sex: F : 1975 Age: 45yWEIGHT:54.4 kg (S) HEIGHT:64 inches (S) BMI:20.6ALLERGIES: ASACHIEF COMPLAINT: dizziness, weaknessDIAGNOSIS: DizzinessLAB ORDERSOrder Description Priority Entered Acknowledged InitialedCBC w Diff STAT 15:58 02/13/2020 16:08 Hamilton Sandoval RN PA;CMP STAT 15:58 02/13/2020 16:08 Hamilton Sandoval RN PA;TSH STAT 15:58 02/13/2020 16:08 Hamilton Sandoval RN PA;Urinalysis (Clean STAT 15:58 02/13/2020 15:59 Fredy Bullard) Vineet JOHNSON;PT/PTT STAT 15:58 02/13/2020 16:08 Hamilton Sandoval RN PA;DIAGNOSTIC STUDY ORDERSOrder Description Priority Entered Acknowledged InitialedChest 2 View STAT 15:58 02/13/2020 16:26 Hamilton(Oxygen?(No)) Vineet Sandoval RN PA; Reason for Study: Shortness of BreathMEDICATION/IV/DRIP/FLUID ORDERSOrder Description Priority Entered Acknowledged InitialedGENERAL ORDERSOrder Description Priority Entered Acknowledged InitialedCardiac Monitor 15:58 02/13/2020 15:58 Juan Miguel(continuous) Vineet JOHNSON; 2 OrderSheet [facility] Emergency Department [address] [place] [address] Phone #: ext- [phone] 02/13/2020 15:19 Patient: SAEED MCLEOD Sex: F : 1975 Age: 45yBlood Pressure 15:58 02/13/2020 15:58 Juan Miguel,Monitor Vineet JOHNSON;EKG 15:58 02/13/2020 15:58 Vineet Bullard R.N.;Pulse oximeter 15:58 02/13/2020 15:58 Juan Miguel(Continuous) Vineet JOHNSON;Vitals 15:58 02/13/2020 15:58 Vineet Bullard R.N.;Vitals - Orthostatic 15:58 02/13/2020 15:59 Vineet Bullard R.N.;[Electronically signed by Hamilton Sandoval RN (17:39 02/13/2020)][Electronically signed by Vineet Whitley (22:12 02/13/2020)][Electronically locked by Hamilton Sandoval RN (17:39 02/13/2020)] Name Value Range Interpretation Code Description Data Quyen rce(s) Supporting Document(s) ID Date Data Source [id number] 02/13/2020 03:30:00 PM EDT [facility] 1 Medication Reconciliation Report [facility] Emergency Department [address] [place] [address] Phone #: ext- [phone] 02/13/2020 15:19 Patient: SAEED MCLEOD Sex: F : 1975 Age: 45yWeight: 54.4 kgHeight/Length: 64 in.BMI: 20.6ALLERGIES: ASAThe patient's Home Medications are listed below:CONTINUE TAKING THE FOLLOWING MEDICATIONS: HYDROcodone-Acetaminophen Oral (10-325 mg), 2x a day, prn Naproxen Oral, dailyThe source(s) of the original Home Medication information:patientThe following Medications were given to the patient in the Emergency Department:None.The following Medications were prescribed to the patient:None. Name Value Range Interpretation Code Description Data Quyen rce(s) Supporting Document(s) ID Date Data Source [id number] 02/13/2020 03:30:00 PM EDT [facility] 1 Medication Administration Record [facility] Emergency Department [address] [place] [address] Phone #: ext- [phone] 02/13/2020 15:19 Patient: SAEED MCLEOD Sex: F : 1975 Age: 45yWeight: 54.4 kgHeight/Length: 64 inBMI: 20.6ALLERGIES: ASADate/Time Medication Administered Medication Ordered Name Value Range Interpretation Code Description Data Quyen rce(s) Supporting Document(s) ID Date Data Source [id number] 02/13/2020 03:30:00 PM EDT [facility] 1 General Instructions [facility] Emergency Department [address] [place] [address] Phone #: ext- [phone] 02/13/2020 15:19 [id number] Sex: F : 1975 Age: 45yAcute dizzinessINSTRUCTIONSWarnings: Further evaluation is necessary.Your Current Medications: Your current home medications have been reviewed.CONTINUE TAKING THE FOLLOWING MEDICATIONS:HYDROcodone-Acetaminophen Oral : Tablet 10-325 mg, 2x a day, prn.Naproxen Oral : daily.Follow-up:Follow up with your doctor. Reason for referral: evaluation, treatment and refer to Cardiology if symptomspersist. Summary of care provided to patient.Understanding of the discharge instructions verbalized by patient. ADDITIONAL INFORMATIONDizziness (Uncertain Cause)Dizziness is a common symptom. It may be described as lightheadedness, spinning, or feeling likeyou ar e going to faint. Dizziness can have many causes.Be sure to tell the healthcare provider about: All medicines you take, including prescription, obmd-oms-wqabdtx, herbs, and supplements Any other symptoms you have Any health problems you are being treated for Any past major health problems you've had, such as a heart attack, balance issues, hearing problems, or blood pressure problems Anything that causes the dizziness to get worse or betterToday's exam did not show an exact cause for your dizziness. Other tests may be needed. Follow upwith your healthcare provider. 2 General Instructions [facility] Emergency Department [address] [place] [address] Phone #: ext- [phone] 02/13/2020 15:19 Patient: SAEED MCLEOD Sex: F : 1975 Age: 45yHome care Dizziness that occurs with sudden standing may be a sign of mild dehydration. Drink extra fluids for the next few days. If you recently started a new medicine, stopped a medicine, or had the dose of a current medicine changed, talk with the prescribing healthcare provider. Your medicine plan may need adjustment. If dizziness lasts more than a few seconds, sit or lie down until it passes. This may help prevent injury in case you pass out. Get up slowly when you feel better. Don't drive or use power tools or dangerous equipment until you have had no dizziness for at least 48 hours.Follow-up careFollow up with your healthcare provider for further evaluation within the next 7 days or as advised.When to seek medical adviceCall your healthcare provider for any of the following: Worsening of symptoms or new symptoms Passing out or seizure Repeated vomiting Headache Palpitations (the sense th at your heart is fluttering or beating fast or hard) Shortness of breath Blood in vomit or stool (black or red color) Weakness of an arm or leg or 1 side of the face Vision or hearing changes Trouble walking or speaking Chest, arm, neck, back, or jaw pain [id number] [employer]. [address] [place] [address]. All rights reserved. This information is not intended as asubstitute for professional medical care. Always follow your healthcare professional's instructions. 3 General Instructions [facility] Emergency Department [address] [place] [address] Phone #: ext- [phone] 02/13/2020 15:19 Patient: SAEED MCLEOD Sex: F : 1975 Age: 45yYou have been given the following additional information:Dizziness, Uncertain Cause(Electronically signed by ALEX Holt 02/13/2020 22:12) Name Value Range Interpretation Code Description Data Quyen rce(s) Supporting Document(s) ID Date Data Source [id number] 02/13/2020 03:30:00 PM EDT [facility] 1 Clinical Report - Nurses [facility] Emergency Department [address] [place] [address] Phone #: [phone]- [phone] 02/13/2020 15:19 Patient: SAEED MCLEOD Sex: F : 1975 Age: 45yTRIAGEArrived by private vehicle. Historian: patient. ( Pt was here for an MRI without contrast of the neck andfeels "funny" now, states she feels warm, SOB, weakness).Triage time: 15:26 02/13/2020. Acuity: LEVEL 4.Chief Complaint: (Feels Funny).Alert. No acute distress.This started just prior to arrival. The patient has had weakness.Treatment [employer]:(Hydrocodone 10-325mg at 1130, Naproxen at 1130).SEPSIS SCREEN: SIRS Screen negative. Sepsis Screen negative. No suspected or confirmed signs ofinfection present. --15:34 02/13/20 Juliette Solis R.N.15:25 02/13/20. BP: 135/78. MAP: 97. HR: 67. RR: 16. O2 saturation: 99% on room air. Temp: 98 F(oral). Pain level now: 0/10. --15:34 02/13/20 Juliette Solis R.N.Weight: 54.4 kg stated. Height/Length: 64 inches Per Patient. BMI: 20.6. --15:24 02/13/20 Juliette Solis R.N.MedicationsHYDROcodone- Acetaminophen Oral (Tablet 10-325 mg), 2x a day as needed. --15:31 02/13/20Juliette Solis R.N. Naproxen Oral, daily. --15:32 02/13/20 Solis, Juliette, R.N.AllergiesASA. --15:31 02/13/20 Juliette Solis R.N.PROBLEMS:Endometriosis.Thoracic back pain.Neck Pain. --15:33 02/13/20 Juliette Solis R.N.Medication/allergy information source: the patient. --15:34 02/13/20 Juliette Solis R.N.ADDITIONAL SURGERIES:Back Surgery.Leap.Pnuemothorax. --15:33 02/13/20 Juliette Solis R.N. 2 Clinical Report - Nurses [facility] Emergency Department [address] [place] [address] Phone #: ext- [phone] 02/13/2020 15:19 Patient: SAEED MCLEOD Sex: F : 1975 Age: 45y Endorsal Column Stimulator. --15:34 02/13/20 Juliette Solis R.N. History PAST MEDICAL HX: Immunizations: up-to-date. Last normal menstrual period- 3rd week of Dec. No contraception. SOCIAL HX: Current every day light tobacco smoker- less than 1/2 a pack per day. Occasional alcohol use. No drug use. The patient was offered HIV testing but declined. Patient education was provided. The patient was offered hepatitis C testing but declined. Patient education was provided. ( COVID screen negative). The patient has not traveled outside the [place] Infectious disease exposure: No infectious disease exposure. Patient is not a known carrier of tuberculosis, hepatitis, HIV, MRSA or VRE. Patient is not a known carrier of CRE. SELF HARM ASSESSMENT: Self harm assessment was performed. The patient answered "no" to the question(s) "Do you have thoughts of harming or killing yourself?", "Do you have a plan for harming or killing yourself?" and "Have you recently had thoughts about harming or killing others?". ABUSE ASSESSMENT: Abuse assessment. The patient had positive responses to the question(s) "Do you feel safe in your home?" (Yes). Abuse denied. No suspicion of abuse. No report of abuse. NUTRITIONAL RISK ASSESSMENT: The nutritional risk assessment revealed no deficiencies. FUNCTIONAL ASSESSMENT: Functional assessment: no impairments noted. LEARNING NEEDS ASSESSMENT: The learning needs assessment revealed no barriers. FALL RISK ASSESSMENT: Fall risk assessment completed. No risk factors identified. SKIN INTEGRITY ASSESSMENT: Skin integrity risk assessment completed. No skin integrity risk identified. --1502/13/20 Juliette Solis R.N. Interventions Identification band on patient. --15:34 02/13/20 Juliette Solis R.N.PHYSICAL ASSESSMENTAmbulatory to room.GENERAL / NEURO / PSYCH: Alert. Oriented X 4. Appears in distress.HEENT: Pupils equal, round and reactive to light. No facial asymmetry noted. Mucous membranes arepink.RESPIRATORY: Respirations not labored. Chest nontender. Breath sounds within normal limits.CVS: Normal sinus rhythm noted. Capillary refill less than 2 seconds. Pulses within normal limits.GI / : Abdomen soft and nontender and normal bowel sounds.SKIN: Skin intact. Skin is warm and dry. Normal skin turgor. --15:41 02/13/20 Hamilton Sandoval RN.NURSING PROGRESS NOTES 3 Clinical Report - Nurses [facility] Emergency Department [address] [place] [address] Phone #: ext- [phone] 02/13/2020 15:19 Patient: SAEED MCLEOD Sex: F : 1975 Age: 45y Three patient identifiers checked. Call light placed in reach. Side rails up x 2. Bed placed in lowest position. Brakes of bed on. Patient ready for evaluation- ED physician and PA notified. --15:34 02/13/20 Juliette Solis R.N. Patient gowned. Head of bed elevated. Reassurance given. --15:41 02/13/20 Hamilton Sandoval RN 16:30 02/13/20. BP: 134/96. MAP: 108. HR: 80. RR: 16. O2 saturation: 96%. Pain level now: 06/10. --16:31 02/13/20 Hamilton Sandoval RN Charted on wrong patient. --16:31 02/13/20 Hamilton Sandoval RN ( Orthostatic vital signs: lying 111/65 sitting 108/75 standing 112/81). --16:45 02/13/20 Hollie Bullard, RFrancoiseDISPOSITION / DISCHARGE 17:38 02/13/20. BP: 116/69. HR: 66. RR: 18. O2 saturation: 100%. Temp: 98.3 F. Pain level now 0. --17:39 02/13/20 [facility] Tech, RubioDESIREE craft [facility] Condition at departure: improved and stable. Discharge instructions provided and reviewed with the patient. Patient verbalized understanding. Written instructions provided in Malaysian. The patient was discharged by the physician corporate administrative assistant. She was discharged home and accompanied by computer art instructor. She left ambulatory and via private vehicle. Knowledge Management Advisor driving. --17:39 02/13/20 Hamilton Sandoval RN.Locked/Released at 02/13/2020 17:39 by Hamilton Sandoval RN Name Value Range Interpretation Code Description Data Quyen rce(s) Supporting Document(s) ID Date Data Source [id number] 02/13/2020 03:30:00 PM EDT [facility] 1 Clinical Report - Physicians/Mid Levels [facility] Emergency Department [address] [place] [address] Phone #: ext- [phone] 02/13/2020 15:19 Patient: SAEED MCLEOD Sex: F : 1975 Age: 45y Time Seen: 15:50 02/13/2020. Arrived- By private vehicle. Historian- patient.HISTORY OF PRESENT ILLNESS Chief Complaint: DIZZINESS and WEAKNESS. ( Pt was here for a MRI without contrast of the neck and feels "funny." Last 15 min of MRI got warm, chest tightness, SOB, weakness. Now globally week. Other sxs resolved.). Not described as a sense of rotation, movement, falling or confusion or feeling off balance. Described as feeling mildly light-headed (not positional). Described as feeling faint and weak all over. This started just prior to arrival and is still present (global weakness still present, other sxs resolved). Severity described as moderate at its maximum. When seen in the E.D., it was almost gone. No nausea, vomiting, hearing loss, tinnitus or ear pain. Similar symptoms previously. None. Recent medical care: Not recently seen/assess ed.REVIEW OF SYSTEMSLast normal menstrual period- Jan 19. No headache, double vision, fainting episodes, head injury orpalpitations. No black stools, abnormal vaginal bleeding, numbness, bloody stools or fever. No sorethroat, cough, abdominal pain, diarrhea or difficulty with urination. No skin rash, enlarged lymph nodes,chills or joint pain. The patient has had new onset of constant, generalized weakness. No difficultywalking. She has had mild, pressure-like central chest pain, currently gone, associated with shortness ofbreath. No associated nausea, vomiting or diaphoresis. She has had mild difficulty breathing at rest.PAST HISTORYSee nurses notes. Problems: Endometriosis. Thoracic back pain. Neck Pain. Additional Surgeries: Back Surgery. Endorsal Column Stimulator. Leap. Pnuemothorax. Medications: Naproxen Oral, daily. HYDROcodone-Acetaminophen Oral (Tablet 10-325 mg), 2x a day as needed. 2 Clinical Report - Physicians/Mid Levels [facility] Emergency Department [address] [place] [address] Phone #: ext- [phone] 02/13/2020 15:19 Patient: SAEED MCLEOD Sex: F : 1975 Age: 45y Allergies: ASA.SOCIAL HISTORYCurrent every day light tobacco smoker- less than 1/2 a pack per day. Occasional alcohol use. No druguse. No recent travel .ADDITIONAL NOTESThe nursing notes have been reviewed with agreement regarding the chief complaint, HPI, ROS, PMH andpatient medications and allergies.PHYSICAL EXAMVital Signs: 02/13/2020 15:25 BP: 135/78. MAP: 97. HR: 67. RR: 16. O2 saturation: 99% on room air.Temp: 98 F. Pain level now: 0/10. Have been reviewed as normal. Oxygen saturation normal.Appearance: Alert. No acute distress. Anxious.Eyes: Pupils equal, round and reactive to light. No nystagmus.ENT: Normal ENT inspection. TM's normal. Moist mucous membranes. Pharynx normal.Neck: Normal inspection. Neck supple.CVS: Normal heart rate and rhythm. Heart sounds normal. Pulses normal.Respiratory: No respiratory distress. Painless inspiration. Breath sounds normal.Abdomen: Soft and nontender. No organomegaly.Back: Normal inspection.Skin: Skin warm and dry. Normal skin color. No rash. Normal skin turgor.Extremities: Extremities exhibit normal ROM. No lower extremity edema.Neuro: Alert. Oriented X 3. Mood/affect normal. Speech normal. Cranial nerves normal (as tested).No cerebellar findings. No motor deficit. No sensory deficit. Reflexes normal.LABS, X-RAYS, AND EKGChest X-ray: No acute disease. Views: PA and lateral. The X-rays were interpreted by the radiologistand contemporaneously by me. Interpretation time: 16:56 02/13/2020.Laboratory Tests: Laboratory tests have been ordered, with results reviewed and considered in themedical decision making process. CBC w Diff: (NOEL: 02/13/2020 16:08) ( MsgRcvd 02/13/2020 16:27) Final results Test Result Flag Units (Reference) CBC W/AUTOMATED DIFF COMPLETE BLOOD COUNT WBC 7.1 10/uL (4.2 - 11.0) RBC 4.30 10/uL (4.20 - 5.40) HEMOGLOBIN 14.1 g/dL (12.0 - 16.0) HEMATOCRIT 40.9 % (37.0 - 47.0) MCV 95.1 fL (81.0 - 101) MCH 32.8 pg (27.0 - 34.0) MCHC 34.5 g/dL (31.0 - 36.0) RDW 11.7 % (11.5 - 14.5) PLATELETS 261 10/uL (150 - 450) MPV 9.2 fL (7.4 - 10.4) NEUT 61.8 % (37.0 - 80.0) 3 Clinical Report - Physicians/Mid Levels [facility] Emergency Department [address] [place] [address] Phone #: [phone]- [phone] 02/13/2020 15:19 Patient: SAEED MCLEOD Sex: F : 1975 Age: 45y LYMPH 28.7 % (25.0 - 40.0) MONO 7.6 % (3.0 - 8.0) EOS 1.0 % (0.0 - 7.0) BASO 0.6 % (0.0 - 2.5) %IG 0.3 H % (0.0 - 0.0) %NRBC 0.0 % (0.0 - 0.0) #NEUT 4.41 10/uL (2.00 - 6.90) #LYMPH 2.04 10/uL (0.60 - 3.40) #MONO 0.54 10/uL (0.00 - 0.90) #EOS 0.07 10/uL (0.00 - 0.70) #BASO 0.04 10/uL (0.00 - 0.20) #IG 0.02 10/uL (0.00 - 0.10) #NRBC 0.00 10/uL (0.00 - 0.00) MANUAL DIFF NOT INDICATED RBC MORPH NOT INDICATEDCMP: (NOEL: 02/13/2020 16:08) ( MsgRcvd 02/13/2020 17:03) Final results Test Result Flag Units (Reference) COMPREHENSIVE METABOLIC PANEL COMPREHENSIVE METABOLIC PANEL SODIUM 138 mEq/L (134 - 153) POTASSIUM 3.7 mEq/L (3.6 - 5.0) CHLORIDE 101 mEq/L (98 - 107) CO2 31 H MEQ/L (22 - 30) GLUCOSE 86 MG/DL (65 - 110) BUN 10 MG/DL (7 - 21) CREATININE 0.6 L MG/DL (0.7 - 1.5) BUN/CREAT 17 (8 - 27) TOTAL PROTEIN 7.3 G/DL (6.3 - 8.2) ALBUMIN 4.4 G/DL (3.9 - 5.0) GLOBULIN 2.9 GM/DL (2.4 - 3.2) A/G RATIO 1.5 (0.8 - 2.0) CALCIUM 9.4 MG/DL (8.4 - 10.2) TOTAL BILI <0.7 MG/DL (0.2 - 1.3) ALKALINE PHOS 80 U/L (38 - 126) SGOT/AST 16 U/L (5 - 40) SGPT/ALT 15 U/L (7 - 56) ANION GAP 6.0 L mmol/L (8.0 - 16.0) AGE 45 yrs NON-AA GFR >60 mL/min AFR AMER GFR >60 mL/min Male GFR Interprentation 20-49 yrs >60 mL/min Fiycjf20-52 yrs >56 mL/min Normal 60-69 yrs >49 mL/min Normal 70-79yrs>42 mL/min Normal 80 and above >35 mL/min Normal Female GFRInterpretation 20-39 yrs >60 mL/min Normal 40-49 yrs >58 mL/minNormal 50-59 yrs >51 mL/min Normal 60-69 yrs >45 mL/min Edqdmx74-56 yrs >39 mL/min Normal 80 and above >32 mL/min NormalTSH: (NOEL: 02/13/2020 16:08) ( MsgRcvd 02/13/2020 17:03) Final results Test Result Flag Units (Reference) TSH 1.47 uIU/mL (0.47 - 5.01)Urinalysis: (NOEL: 02/13/2020 16:00) ( MsgRcvd 02/13/2020 16:10) Final results Test Result Flag Units (Reference) URINALYSIS URINALYSIS 4 Clinical Report - Physicians/Mid Levels [facility] Emergency Department [address] [place] [address] Phone #: ext- [phone] 02/13/2020 15:19 Patient: SAEED MCLEOD Sex: F : 1975 Age: 45y SOURCE R COLOR yellow (NORMAL: Yello CLARITY clear (NORMAL: Clear SPEC GRAVITY 1.010 (1.001 - 1.030 pH 8 (5 - 9) GLUCOSE NORM (NORMAL: Negat BILIRUBIN NEG (NORMAL: Negat KETONE NEG (NORMAL: Negat PROTEIN NEG (NORMAL: Negat NITRITE NEG (NORMAL: Negat BLOOD 10 A (NORMAL: Negat LEUK EST NEG (NORMAL: Negat UROBILINOGEN NOR (less than 1.0 MICROSCOPIC See Below WBC 0 - 1 (NORMAL: NONE RBC 0 - 1 (NORMAL: NONE EPITHELIAL FEW (NORMAL: NONE BACTERIA Trace (NORMAL: NONE PT/PTT: (NOEL: 02/13/2020 16:08) ( IngRcvd 02/13/2020 16:35) Final results Test Result Flag Units (Reference) PROTIME 12.3 SECONDS (11.0 - 15.5) INR 0.91 L (0.93 - 1.23) PTT 32.3 SECONDS (24.8 - 36.7) \\BLDo\\INR INTERPRETATION\\BLDx\\ Therapeutic range for Coumadin and related oral anticoagulants. -International Normalized Ratio (INR): 2.0 - 3.0 for Venous Thrombosis, Pulmonary Embolus, Tissue heart valves, Acute HI Atrial Fibrillation, Valvular heart disease and recurrent Systemic Embolism. - International Normalized Ratio (INR): 2.5 - 3.5 for Mechanical Prosthetic valve. Chest 2 View: (NOEL: 02/13/2020 15:58) ( MsgRcvd 02/13/2020 17:02) In Progress CHEST 2 VIEWS Reason(s): Shortness of Breath TRANSPORTATION: IV? O2? Oxygen?(No) Room: ED.PROGRESS AND PROCEDURESCourse of Care: :Feb 13 2020. (Discussed risks, benefits, options and pt is agreeable with dx and tx plan.). Patient counseled in person regarding the patient's stable condition, test results, diagnosis and need for follow-up. Patient agrees with plan of care. 17:Feb 13 2020. Disposition: Discharged home in good and improved condition (:Feb 13 2020). CLINICAL IMPRESSION Acute dizziness 5 Clinical Report - Physicians/Mid Levels [facility] Emergency Department [address] [place] [address] Phone #: ext- [phone] 02/13/2020 15:19 Patient: SAEED MCLEOD Sex: F : 1975 Age: 45yINSTRUCTIONS Warnings: Further evaluation is necessary. Your Current Medications: Your current home medications have been reviewed. CONTINUE TAKING THE FOLLOWING MEDICATIONS: HYDROcodone-Acetaminophen Oral : Tablet 10-325 mg, 2x a day, prn. Naproxen Oral : daily. Follow-up: Follow up with your doctor. Reason for referral: evaluation, treatment and refer to Cardiology if symptoms persist. Summary of care provided to patient. Understanding of the discharge instructions verbalized by patient.(Electronically signed by ALEX Holt 02/13/2020 22:12) Name Value Range Interpretation Code Description Data Quyen rce(s) Supporting Document(s) ID Date Data Source [id number] 02/13/2020 07:44:00 [place] [address] RESPIRATORY CARE REPORT ==== ---------NAME------- NUMBER SEX AGE ADMIT DISC. XRAY# F/C TYPEPARODY SAEED Lovell [id number] F 45 02/13/20 02/13/20 [id number] JONATHAN E/R DATE OF : 1975 M/R# [id number] #: [id number] TR-07 LOCATION: [place] [address] COMPLE TE:02/13/20 16:12 [facility] [id number] PHYSICIAN: JEFF WHITLEY Name Value Range Interpretation Code Description Data Quyen rce(s) Supporting Document(s) ID Date Data Source [id number] 02/13/2020 05:03:00 PM EDT [facility] Name Value Range Interpretation Code Description Data Quyen rce(s) Supporting Document(s) Thyrotropin [Units/volume] in Serum or Plasma by Detec tion limit <= 0.05 mIU/L 1.47 uIU/mL 0.47 - 5.01 [facility] ID Date Data Source [id number] 02/13/2020 05:03:00 PM EDT [facility] Name Value Range Interpretation Code Description Data Quyen rce(s) Supporting Document(s) COMPREHENSIVE METABOLIC PANEL [facility] COMPREHENSIVE METABOLIC PANEL Sodium [Moles/volume] in Serum or Plasma 138 mEq/L 134 - 153 [facility] Potassium [Moles/volume] in Serum or Plasma 3.7 mEq/L 3.6 - 5.0 [facility] Chloride [Moles/volume] in Serum or Plasma 101 mEq/L 98 - 107 [facility] Carbon dioxide, total [Moles/volume] in Serum or Plasma 31 MEQ/L 22 - 30 H [facility] Glucose [Mass/volume] in Serum or Plasma 86 MG/DL 65 - 110 [facility] BUN 10 MG/DL 7 - 21 [facility] Creatinine [Mass/volume] in Serum or Plasma 0.6 MG/DL 0.7 - 1.5 L [facility] BUN/CREAT 17 8 - 27 [facility] Protein [Mass/volume] in Serum or Plasma 7.3 G/DL 6.3 - 8.2 [facility] Albumin [Mass/volume] in Serum or Plasma 4.4 G/DL 3.9 - 5.0 [facility] Globulin [Mass/volume] in Serum by calculation 2.9 GM/DL 2.4 - 3.2 [facility] A/G RATIO 1.5 0.8 - 2.0 [facility] Calcium [Mass/volume] in Serum or Plasma 9.4 MG/DL 8.4 - 10.2 [facility] Bilirubin.total [Mass/volume] in Serum or Plasma <0.7 MG/DL 0.2 - 1.3 [facility] Alkaline phosphatase [Enzymatic activity/volume] in Serum or Plasma 80 U/L 38 - 126 [facility] Aspartate aminotransferase [Enzymatic activity/volume] in Serum or Plasma 16 U/L 5 - 40 [facility] Alanine aminotransferase [Enzymatic activity/volume] in Seru m or Plasma 15 U/L 7 - 56 [facility] Anion gap 3 in Serum or Plasma 6.0 mmol/L 8.0 - 16.0 L [facility] AGE 45 yrs [facility] NON-AA GFR >60 mL/min [facility] ital AFR AMER GFR >60 mL/min [facility] Male GFR In terprentation 20-49 yrs >60 mL/min Normal 50-59 yrs >56 mL/min Normal 60-69 yrs >49 mL/min Normal 70-79yrs >42 mL/min Normal 80 and above >35 mL/min Normal Female GFR Interpretation 20-39 yrs >60 mL/min Normal 40-49 yrs >58 mL/min Normal 50-59 yrs >51 mL/min Normal 60-69 yrs >45 mL/min Normal 70-79 yrs >39 mL/min Normal 80 and above >32 mL/min Normal ID Date Data Source [id number] 02/13/2020 04:35:00 PM EDT [facility] Name Value Range Interpretation Code Description Data Quyen rce(s) Supporting Document(s) Prothrombin time (PT) 12.3 SECONDS 11.0 - 15.5 [facility] INR in Platelet poor plasma by Coagulation assay 0.91 0.93 - 1. 23 L [facility] aPTT in Blood by Coagulation assay 32.3 SECONDS 24.8 - 36.7 [facility] \\BLDo\\INR INTERPRETATION\\BLDx\\ Therapeutic range for Coumadin and related oral anticoagulants. - International Normalized Ratio (INR): 2.0 - 3.0 for Venous Thrombosis, Pulmonary Embolus, Tissue heart valves, Acute HI Atrial Fibrillation, Valvular heart disease and recurrent Systemic Embolism. - International Normalized Ratio (INR): 2.5 - 3.5 for Mechanical Prosthetic valve. ID Date Data Source [id number] 02/13/2020 04:26:00 PM EDT [facility] Name Value Range Interpretation Code Description Data Quyen rce(s) Supporting Document(s) CBC W/AUTOMATED DIFF [facility] COMPLETE BLOOD COUNT Leukocytes [#/volume] in Blood by Automated count 7.1 10^3/uL 4.2 - 1 1.0 [facility] Erythrocytes [#/volume] in Blood by Automated count 4.30 10^6/uL 4. 20 - 5.40 [facility] Hemoglobin [Mass/volume] in Blood 14.1 g/dL 12.0 - 16.0 [facility] Hematocrit [Volume Fraction] of Blood by Automated count 40.9 % 3 7.0 - 47.0 [facility] Erythrocyte mean corpuscular volume [Entitic volume] by Auto mated count 95.1 fL 81.0 - 101 [facility] Erythrocyte mean corpuscular hemoglobin [Entitic mass] by Automated count 32.8 pg 27.0 - 34.0 [facility] Erythrocyte mean corpuscular hemoglobin concentration [Mass/volume] by Automated count 34.5 g/dL 31.0 - 36.0 [facility] Erythrocyte distribution width [Ratio] by Automated count 11.7 % 11.5 - 14.5 [facility] Platelets [#/volume] in Blood by Automated count 261 10^3/uL 150 - 45 0 [facility] Platelet mean volume [Entitic volume] in Blood by Automated count 9.2 fL 7.4 - 10.4 [facility] Neutrophils/100 leukocytes in Blood by Automated count 61.8 % 37. 0 - 80.0 [facility] Lymphocytes/100 leukocytes in Blood by Manual count 28.7 % 25.0 - 40.0 [facility] Monocytes/100 leukocytes in Blood by Automated count 7.6 % 3.0 - 8.0 [facility] Eosinophils/100 leukocytes in Blood by Automated count 1.0 % 0.0 - 7.0 [facility] Basophils/100 leukocytes in Blood by Automated count 0.6 % 0.0 - 2.5 [facility] %IG 0.3 % 0.0 - 0.0 [facility] %NRBC 0.0 % 0.0 - 0.0 [facility] Neutrophils [#/volume] in Blood by Automated count 4.41 10^3/uL 2.00 - 6.90 [facility] Lymphocytes [#/volume] in Blood by Automated count 2.04 10^3/uL 0.60 - 3.40 [facility] Monocytes [#/volume] in Blood by Automated count 0.54 10^3/uL 0.00 - 0.90 [facility] Eosinophils [#/volume] in Blood by Automated count 0.07 10^3/uL 0.00 - 0.70 [facility] Basophils [#/volume] in Blood by Automated count 0.04 10^3/uL 0.00 - 0.20 [facility] #IG 0.02 10^3/uL 0.00 - 0.10 [facility] #NRBC 0.00 10^3/uL 0.00 - 0.00 [facility] MANUAL DIFF NOT INDICATED [facility] RBC MORPH NOT INDICATED [facility] ID Date Data Source [id number] 02/13/2020 04:08:00 PM EDT [facility] Name Value Range Interpretation Code Description Data Quyen rce(s) Supporting Document(s) [facility] UR[facility]ALYSIS SOURCE R [facility] COLOR yellow NORMAL: Yellow [facility] CLARITY clear NORMAL: Clear [facility] Specific gravity of Urine by Test strip 1.010 1.001 - 1.030 [facility] pH 8 5 - 9 [facility] Glucose [Mass/volume] in Urine by Test strip NORM NORMAL: [facility]at [facility] Bilirubin.total [Presence] in Urine by Test strip NEG NORMAL: Negative [facility] Ketones [Presence] in Urine by Test strip NEG NORMAL: Negative [facility] Protein [Mass/volume] in Urine by Test strip NEG NORMAL: Negat [facility] Nitrite [Presence] in Urine by Test strip NEG NORMAL: Negative [facility] BLOOD 10 NORMAL: Negative A [facility] Leukocyte esterase [Presence] in Urine by Test strip NEG WILLIAM L: Negative [facility] Urobilinogen [Mass/volume] in Urine by Test strip NOR less aixa n 1.0 mg/dL [facility] MICROSCOPIC See Below [facility] ital WBC 0 - 1 NORMAL: NONE SEEN [facility] Erythrocytes [#/volume] in Urine by Test strip 0 - 1 NORMAL: NON E SEEN [facility] EPITHELIAL FEW NORMAL: NONE SEEN [facility] Bacteria [Presence] in Urine sediment by Light microscopy Tr thomas NORMAL: NONE SEEN [facility] Procedure Social History Code Duration Value Status Description Data Source(s ) Smoking 01/05/2021 12:00:00 AM EDT Current Smoker completed Curre nt Smoker eCW1 ([facility]) Smoking 01/05/2021 12:00:00 AM EDT Current Smoker completed Curre nt Smoker eCW1 ([facility]) Smoking 01/05/2021 12:00:00 AM EDT Current Smoker completed Curre nt Smoker eCW1 ([facility]) Smoking 01/05/2021 12:00:00 AM EDT Current Smoker completed Curre nt Smoker eCW1 ([facility]) Smoking 01/05/2021 12:00:00 AM EDT Current Smoker completed Curre nt Smoker eCW1 ([facility]) Smoking 01/05/2021 12:00:00 AM EDT Current Smoker completed Curre nt Smoker eCW1 ([facility]) Smoking 12/18/2020 12:00:00 AM EDT Current Smoker completed Curre nt Smoker eCW1 ([facility]) Smoking 12/18/2020 12:00:00 AM EDT Current Smoker completed Curre nt Smoker eCW1 ([facility]) Smoking 12/18/2020 12:00:00 AM EDT Current Smoker completed Curre nt Smoker eCW1 ([facility]) Smoking 12/04/2020 12:00:00 AM EDT Current Smoker completed Curre nt Smoker eCW1 ([facility]) Smoking 11/04/2020 12:00:00 AM EDT Current Smoker completed Curre nt Smoker eCW1 ([facility]) Smoking 08/19/2020 12:00:00 AM EDT Current Smoker completed Curre nt Smoker eCW1 ([facility]) Smoking 08/19/2020 12:00:00 AM EDT Current Smoker completed Curre nt Smoker eCW1 ([facility]) Smoking 08/19/2020 12:00:00 AM EDT Current Smoker completed Curre nt Smoker eCW1 ([facility]) Smoking 08/19/2020 12:00:00 AM EDT Current Smoker completed Curre nt Smoker eCW1 ([facility]) Smoking 08/19/2020 12:00:00 AM EDT Current Smoker completed Curre nt Smoker eCW1 ([facility]) Smoking 08/19/2020 12:00:00 AM EDT Current Smoker completed Curre nt Smoker eCW1 ([facility]) Smoking 08/13/2020 12:00:00 AM EDT Current Smoker completed Curre nt Smoker eCW1 ([facility]) Smoking 08/03/2020 12:00:00 AM EDT Current Smoker completed Curre nt Smoker eCW1 ([facility]) Smoking 08/03/2020 12:00:00 AM EDT Current Smoker completed Curre nt Smoker eCW1 ([facility]) Smoking 07/28/2020 12:00:00 AM EDT Current Smoker completed Curre nt Smoker eCW1 ([facility]) Smoking 07/02/2020 12:00:00 AM EST Current Smoker completed Curre nt Smoker eCW1 ([facility]) Smoking 07/02/2020 12:00:00 AM EST Current Smoker completed Curre nt Smoker eCW1 ([facility]) Smoking 07/02/2020 12:00:00 AM EST Current Smoker completed Curre nt Smoker eCW1 ([facility]) Smoking 07/02/2020 12:00:00 AM EST Current Smoker completed Curre nt Smoker eCW1 ([facility]) Smoking 06/25/2020 12:00:00 AM EST Current Smoker completed Curre nt Smoker eCW1 ([facility]) Smoking 06/04/2020 12:00:00 AM EST Current Smoker completed Curre nt Smoker eCW1 ([facility]) Smoking 06/04/2020 12:00:00 AM EST Current Smoker completed Curre nt Smoker eCW1 ([facility]) Smoking 06/04/2020 12:00:00 AM EST Current Smoker completed Curre nt Smoker eCW1 ([facility]) Smoking 06/04/2020 12:00:00 AM EST Current Smoker completed Curre nt Smoker eCW1 ([facility]) Smoking 05/12/2020 12:00:00 AM EST Current Smoker completed Curre nt Smoker eCW1 ([facility]) Smoking 05/12/2020 12:00:00 AM EST Current Smoker completed Curre nt Smoker eCW1 ([facility]) Smoking 04/15/2020 12:00:00 AM EST Current Smoker completed Curre nt Smoker eCW1 ([facility]) Smoking 04/10/2020 12:00:00 AM EST Current Smoker completed Curre nt Smoker eCW1 ([facility]) Smoking 04/03/2020 12:00:00 AM EST Current Smoker completed Curre nt Smoker eCW1 ([facility]) Smoking 04/03/2020 12:00:00 AM EST Current Smoker completed Curre nt Smoker eCW1 ([facility]) Smoking 03/31/2020 12:00:00 AM EST Current Smoker completed Curre nt Smoker eCW1 ([facility]) Smoking 03/18/2020 12:00:00 AM EST Current Smoker completed Curre nt Smoker eCW1 ([facility]) Smoking 03/13/2020 12:00:00 AM EST Current Smoker completed Curre nt Smoker eCW1 ([facility]) Smoking 03/03/2020 12:00:00 AM EST Current Smoker completed Curre nt Smoker eCW1 ([facility]) Smoking 03/03/2020 12:00:00 AM EST Current Smoker completed Curre nt Smoker eCW1 ([facility]) Smoking 03/03/2020 12:00:00 AM EST Current Smoker completed Curre nt Smoker eCW1 ([facility]) Smoking 02/26/2020 12:00:00 AM EDT Current Smoker completed Curre nt Smoker eCW1 ([facility]) Smoking 02/26/2020 12:00:00 AM EDT Current Smoker completed Curre nt Smoker eCW1 ([facility]) Smoking 02/26/2020 12:00:00 AM EDT Current Smoker completed Curre nt Smoker eCW1 ([facility]) Smoking 02/26/2020 12:00:00 AM EDT Current Smoker completed Curre nt Smoker eCW1 ([facility]) Smoking 02/21/2020 12:00:00 AM EDT Current Smoker completed Curre nt Smoker eCW1 ([facility]) Smoking 02/21/2020 12:00:00 AM EDT Current Smoker completed Curre nt Smoker eCW1 ([facility]) Vital Signs ID Date Data Source UNK Name Value Range Interpretation Code Description Data Source(s) Diastolic blood pressure 78 mm[Hg] 78 mm[Hg] MEDENT ([facility], ) Systolic blood pressure 122 mm[Hg] 122 mm[Hg] M EDENT ([facility], ) Heart rate 84 /min 84 /min MEDENT ([facility], ) Res[facility] 16 /min 16 /[facility] Body weight 122.0 [lb_av] 122.0 [lb_av] W ([facility]) Body weight 55.34 kg 55.34 kg [facility] ([facility]) Body height 64 [in_i] 64 [in_i] [facility] ([facility]) Body mass index (BMI) [Ratio] 20.94 kg/m2 20.94 kg/m2 eCW1 ([facility]) Heart rate 70 /min 70 /min eCW1 ([facility]) Respiratory rate 18 /min 18 /min eCW1 ([facility]) Body temperature 99.0 [degF] 99.0 [degF] eCW1 ( [facility]) Systolic blood pressure 132 mm[Hg] 132 mm[Hg] e CW1 ([facility]) Diastolic blood pressure 71 mm[Hg] 71 mm[Hg] eCW1 ([facility]) Body weight 122.8 [lb_av] 122.8 [lb_av] eCW1 ([facility]) Body weight 55.7 kg 55.7 kg eCW1 ([facility]) Body height 64 [in_i] 64 [in_i] eCW1 ([facility]) Body mass index (BMI) [Ratio] 21.08 kg/m2 21.08 kg/m2 eCW1 ([facility]) Heart rate 72 /min 72 /min eCW1 ([facility]) Respiratory rate 18 /min 18 /min eCW1 ([facility]) Body temperature 98.7 [degF] 98.7 [degF] eCW1 ( [facility]) Systolic blood pressure 128 mm[Hg] 128 mm[Hg] e CW1 ([facility]) Diastolic blood pressure 56 mm[Hg] 56 mm[Hg] eCW1 ([facility]) Body height 64 [in_i] 64 [in_i] eCW1 ([facility]) Body mass index (BMI) [Ratio] 21.04 kg/m2 21.04 kg/m2 eCW1 ([facility]) Heart rate 83 /min 83 /min eCW1 ([facility]) Respiratory rate 18 /min 18 /min eCW1 ([facility]) Body weight 122.6 [lb_av] 122.6 [lb_av] eCW1 ([facility]) Body weight 55.61 kg 55.61 kg eCW1 ([facility]) Body temperature 98.1 [degF] 98.1 [degF] eCW1 ( [facility]) Systolic blood pressure 139 mm[Hg] 139 mm[Hg] e CW1 ([facility]) Diastolic blood pressure 79 mm[Hg] 79 mm[Hg] eCW1 ([facility]) Body weight 124 [lb_av] 124 [lb_av] eCW1 ([facility]) Body height 64 [in_i] 64 [in_i] eCW1 ([facility]) Body mass index (BMI) [Ratio] 21.28 kg/m2 21.28 kg/m2 eCW1 ([facility]) Heart rate 64 /min 64 /min eCW1 ([facility]) Respiratory rate 18 /min 18 /min eCW1 ([facility]) Systolic blood pressure 124 mm[Hg] 124 mm[Hg] e CW1 ([facility]) Diastolic blood pressure 62 mm[Hg] 62 mm[Hg] eCW1 ([facility]) Body height 64 [in_i] 64 [in_i] MEDENT ([facility]) 5'4" Body weight 123.00 [lb_av] 123.00 [lb_av] MEDEN T ([facility]) Body mass index (BMI) [Ratio] 21.1 kg/m2 21.1 k g/m2 MEDENT ([facility]) Systolic blood pressure 122 mm[Hg] 122 mm[Hg] M EDENT ([facility]) Diastolic blood pressure 74 mm[Hg] 74 mm[Hg] MEDENT ([facility]) Heart rate 74 /min 74 /min MEDENT ([facility]) Body temperature 98.6 [degF] 98.6 [degF] MEDENT ([facility]) Body temperature 37.0 Dodie 37.0 Dodie MEDENT ( [facility]) Respiratory rate 18 /min 18 /min MEDENT ( [facility]) Body weight 121.6 [lb_av] 121.6 [lb_av] eCW1 ([facility]) Body height 64 [in_i] 64 [in_i] eCW1 ([facility]) Body mass index (BMI) [Ratio] 20.87 kg/m2 20.87 kg/m2 eCW1 ([facility]) Heart rate 85 /min 85 /min eCW1 ([facility]) Respiratory rate 18 /min 18 /min eCW1 ([facility]) Body temperature 98.2 [degF] 98.2 [degF] eCW1 ( [facility]) Systolic blood pressure 112 mm[Hg] 112 mm[Hg] e CW1 ([facility]) Diastolic blood pressure 70 mm[Hg] 70 mm[Hg] eCW1 ([facility]) Body weight 122 [lb_av] 122 [lb_av] eCW1 ([facility]) Body height 64 [in_i] 64 [in_i] eCW1 ([facility]) Body mass index (BMI) [Ratio] 20.94 kg/m2 20.94 kg/m2 eCW1 ([facility]) Heart rate 75 /min 75 /min eCW1 ([facility]) Respiratory rate 18 /min 18 /min eCW1 ([facility]) Body temperature 97.6 [degF] 97.6 [degF] eCW1 ( [facility]) Systolic blood pressure 121 mm[Hg] 121 mm[Hg] e CW1 ([facility]) Diastolic blood pressure 67 mm[Hg] 67 mm[Hg] eCW1 ([facility]) Body weight 122.6 [lb_av] 122.6 [lb_av] eCW1 ([facility]) Body height 64 [in_i] 64 [in_i] eCW1 ([facility]) Body mass index (BMI) [Ratio] 21.04 kg/m2 21.04 kg/m2 eCW1 ([facility]) Heart rate 87 /min 87 /min eCW1 ([facility]) Respiratory rate 18 /min 18 /min eCW1 ([facility]) Body temperature 98.4 [degF] 98.4 [degF] eCW1 ( [facility]) Systolic blood pressure 123 mm[Hg] 123 mm[Hg] e CW1 ([facility]) Diastolic blood pressure 64 mm[Hg] 64 mm[Hg] eCW1 ([facility]) Body weight 122.6 [lb_av] 122.6 [lb_av] eCW1 ([facility]) Body height 64 [in_i] 64 [in_i] eCW1 ([facility]) Body mass index (BMI) [Ratio] 21.04 kg/m2 21.04 kg/m2 eCW1 ([facility]) Heart rate 77 /min 77 /min eCW1 ([facility]) Respiratory rate 18 /min 18 /min eCW1 ([facility]) Body temperature 99.9 [degF] 99.9 [degF] eCW1 ( [facility]) Systolic blood pressure 131 mm[Hg] 131 mm[Hg] e CW1 ([facility]) Diastolic blood pressure 76 mm[Hg] 76 mm[Hg] eCW1 ([facility]) Body weight 120.6 [lb_av] 120.6 [lb_av] eCW1 ([facility]) Body height 64 [in_i] 64 [in_i] eCW1 ([facility]) Body mass index (BMI) [Ratio] 20.70 kg/m2 20.70 kg/m2 eCW1 ([facility]) Heart rate 87 /min 87 /min eCW1 ([facility]) Respiratory rate 18 /min 18 /min eCW1 ([facility]) Body temperature 98.6 [degF] 98.6 [degF] eCW1 ( [facility]) Systolic blood pressure 131 mm[Hg] 131 mm[Hg] e CW1 ([facility]) Diastolic blood pressure 64 mm[Hg] 64 mm[Hg] eCW1 ([facility]) Body weight 120.6 [lb_av] 120.6 [lb_av] eCW1 ([facility]) Body height 64 [in_i] 64 [in_i] eCW1 ([facility]) Body mass index (BMI) [Ratio] 20.70 kg/m2 20.70 kg/m2 eCW1 ([facility]) Heart rate 87 /min 87 /min eCW1 ([facility]) Respiratory rate 18 /min 18 /min eCW1 ([facility]) Body temperature 99.3 [degF] 99.3 [degF] eCW1 ( [facility]) Systolic blood pressure 110 mm[Hg] 110 mm[Hg] e CW1 ([facility]) Diastolic blood pressure 70 mm[Hg] 70 mm[Hg] eCW1 ([facility]) Body weight 121.0 [lb_av] 121.0 [lb_av] eCW1 ([facility]) Body height 64 [in_i] 64 [in_i] eCW1 ([facility]) Body mass index (BMI) [Ratio] 20.77 kg/m2 20.77 kg/m2 eCW1 ([facility]) Heart rate 70 /min 70 /min eCW1 ([facility]) Respiratory rate 18 /min 18 /min eCW1 ([facility]) Body temperature 98.2 [degF] 98.2 [degF] eCW1 ( [facility]) Systolic blood pressure 128 mm[Hg] 128 mm[Hg] e CW1 ([facility]) Diastolic blood pressure 74 mm[Hg] 74 mm[Hg] eCW1 ([facility]) Body weight 120.6 [lb_av] 120.6 [lb_av] eCW1 ([facility]) Body height 64 [in_i] 64 [in_i] eCW1 ([facility]) Body mass index (BMI) [Ratio] 20.70 kg/m2 20.70 kg/m2 eCW1 ([facility]) Heart rate 77 /min 77 /min eCW1 ([facility]) Respiratory rate 18 /min 18 /min eCW1 ([facility]) Body temperature 98.7 [degF] 98.7 [degF] eCW1 ( [facility]) Systolic blood pressure 131 mm[Hg] 131 mm[Hg] e CW1 ([facility]) Diastolic blood pressure 87 mm[Hg] 87 mm[Hg] eCW1 ([facility]) Systolic blood pressure 129 mm[Hg] 129 mm[Hg] M EDENT ([facility]) Diastolic blood pressure 79 mm[Hg] 79 mm[Hg] MEDENT ([facility]) Heart rate 68 /min 68 /min MEDENT ([facility]) Body temperature 98.4 [degF] 98.4 [degF] MEDENT ([facility]) Respiratory rate 16 /min 16 /min [facility] Oxygen saturation in Arterial blood by Pulse oximetry 97 % 97 % MEDENT ([facility]) Body weight 120.00 [lb_av] 120.00 [lb_av] MEDEN T ([facility]) Body weight 54.432 kg 54.432 kg MEDENT ([facility]) Body height 64 [in_i] 64 [in_i] MEDENT ([facility]) 5'4" Body mass index (BMI) [Ratio] 20.6 kg/m2 20.6 k g/m2 [facility] ([facility]) Body surface area Derived from formula 1.57 m2 1.57 m2 [facility] ([facility]) Body weight 119.8 [lb_av] 119.8 [lb_av] eCW1 ([facility]) Body height 64 [in_i] 64 [in_i] eCW1 ([facility]) Body mass index (BMI) [Ratio] 20.56 kg/m2 20.56 kg/m2 eCW1 ([facility]) Heart rate 68 /min 68 /min eCW1 ([facility]) Respiratory rate 18 /min 18 /min eCW1 ([facility]) Body temperature 98.0 [degF] 98.0 [degF] eCW1 ( [facility]) Systolic blood pressure 128 mm[Hg] 128 mm[Hg] e CW1 ([facility]) Diastolic blood pressure 68 mm[Hg] 68 mm[Hg] eCW1 ([facility]) Body weight 119.2 [lb_av] 119.2 [lb_av] eCW1 ([facility]) Body height 64 [in_i] 64 [in_i] eCW1 ([facility]) Body mass index (BMI) [Ratio] 20.46 kg/m2 20.46 kg/m2 eCW1 ([facility]) Heart rate 75 /min 75 /min eCW1 ([facility]) Respiratory rate 18 /min 18 /min eCW1 ([facility]) Body temperature 98 [degF] 98 [degF] eCW1 ([facility]) Systolic blood pressure 144 mm[Hg] 144 mm[Hg] e CW1 ([facility]) Diastolic blood pressure 76 mm[Hg] 76 mm[Hg] eCW1 ([facility]) Body weight 120.6 [lb_av] 120.6 [lb_av] eCW1 ([facility]) Body height 64 [in_i] 64 [in_i] eCW1 ([facility]) Body mass index (BMI) [Ratio] 20.70 kg/m2 20.70 kg/m2 eCW1 ([facility]) Heart rate 78 /min 78 /min eCW1 ([facility]) Respiratory rate 18 /min 18 /min eCW1 ([facility]) Body temperature 98.0 [degF] 98.0 [degF] eCW1 ( [facility]) Systolic blood pressure 133 mm[Hg] 133 mm[Hg] e CW1 ([facility]) Diastolic blood pressure 70 mm[Hg] 70 mm[Hg] eCW1 ([facility]) Patient Treatment Plan of Care Planned Activity Planned Date Details Description Data Source (s) Morphine Sulfate 15 MG Extended Release Oral Tablet 02/03/20 12:00:00 AM EDT eCW1 ([facility]) Morphine Sulfate 15 MG Oral Tablet 02/02/2021 12:00:00 AM EDT eCW1 ([facility]) Morphine Sulfate 15 MG Oral Tablet 12/18/2020 12:00:00 AM EDT eCW1 ([facility]) Morphine Sulfate 15 MG Extended Release Oral Tablet 12/19/19 12:00:00 AM EDT eCW1 ([facility]) Morphine Sulfate 15 MG Oral Tablet 12/18/2020 12:00:00 AM EDT eCW1 ([facility]) Morphine Sulfate 15 MG Extended Release Oral Tablet 12/19/19 12:00:00 AM EDT eCW1 ([facility]) Morphine Sulfate 15 MG Oral Tablet 12/18/2020 12:00:00 AM EDT eCW1 ([facility]) Morphine Sulfate 15 MG Extended Release Oral Tablet 12/19/19 12:00:00 AM EDT eCW1 ([facility]) Morphine Sulfate 15 MG Extended Release Oral Tablet 12/05/19 12:00:00 AM EDT eCW1 ([facility]) Morphine Sulfate 15 MG Oral Tablet 12/04/2020 12:00:00 AM EDT eCW1 ([facility]) Morphine Sulfate 15 MG Oral Tablet 11/04/2020 12:00:00 AM EDT eCW1 ([facility]) Morphine Sulfate 15 MG Extended Release Oral Tablet 11/05/19 12:00:00 AM EDT eCW1 ([facility]) Morphine Sulfate 15 MG Extended Release Oral Tablet 10/07/19 12:00:00 AM EDT eCW1 ([facility]) Morphine Sulfate 15 MG Oral Tablet 10/06/2020 12:00:00 AM EDT eCW1 ([facility]) Morphine Sulfate 15 MG Extended Release Oral Tablet 10/07/19 12:00:00 AM EDT eCW1 ([facility]) Morphine Sulfate 15 MG Oral Tablet 10/06/2020 12:00:00 AM EDT eCW1 ([facility]) Morphine Sulfate 15 MG Oral Tablet 09/07/2020 12:00:00 AM EDT eCW1 ([facility]) Morphine Sulfate 15 MG Extended Release Oral Tablet 09/08/19 12:00:00 AM EDT eCW1 ([facility]) Morphine Sulfate 15 MG Oral Tablet 09/07/2020 12:00:00 AM EDT eCW1 ([facility]) Morphine Sulfate 15 MG Extended Release Oral Tablet 09/08/19 12:00:00 AM EDT eCW1 ([facility]) Morphine Sulfate 15 MG Oral Tablet 09/07/2020 12:00:00 AM EDT eCW1 ([facility]) Morphine Sulfate 15 MG Extended Release Oral Tablet 09/08/19 12:00:00 AM EDT eCW1 ([facility]) Morphine Sulfate 15 MG Oral Tablet 09/07/2020 12:00:00 AM EDT eCW1 ([facility]) Morphine Sulfate 15 MG Extended Release Oral Tablet 09/08/19 12:00:00 AM EDT eCW1 ([facility]) Morphine Sulfate 15 MG Extended Release Oral Tablet 08/04/19 12:00:00 AM EDT eCW1 ([facility]) Morphine Sulfate 15 MG Oral Tablet 08/03/2020 12:00:00 AM EDT eCW1 ([facility]) Morphine Sulfate 15 MG Extended Release Oral Tablet 08/04/19 12:00:00 AM EDT eCW1 ([facility]) Morphine Sulfate 15 MG Oral Tablet 08/03/2020 12:00:00 AM EDT eCW1 ([facility]) Morphine Sulfate 15 MG Oral Tablet 07/13/2020 12:00:00 AM EDT eCW1 ([facility]) Morphine Sulfate 15 MG Oral Tablet 07/13/2020 12:00:00 AM EDT eCW1 ([facility]) Morphine Sulfate 15 MG Extended Release Oral Tablet 07/09/19 12:00:00 AM EST eCW1 ([facility]) Morphine Sulfate 15 MG Extended Release Oral Tablet 07/09/19 12:00:00 AM EST eCW1 ([facility]) Morphine Sulfate 15 MG Extended Release Oral Tablet 07/09/19 12:00:00 AM EST eCW1 ([facility]) Morphine Sulfate 15 MG Extended Release Oral Tablet 07/09/19 12:00:00 AM EST eCW1 ([facility]) Morphine Sulfate 15 MG Oral Tablet 06/15/2020 12:00:00 AM EST eCW1 ([facility]) Morphine Sulfate 15 MG Oral Tablet 06/15/2020 12:00:00 AM EST eCW1 ([facility]) Morphine Sulfate 15 MG Extended Release Oral Tablet 06/04/19 12:00:00 AM EST eCW1 ([facility]) Morphine Sulfate 15 MG Extended Release Oral Tablet 06/04/19 12:00:00 AM EST eCW1 ([facility]) Morphine Sulfate 15 MG Extended Release Oral Tablet 06/04/19 12:00:00 AM EST eCW1 ([facility]) Morphine Sulfate 15 MG Oral Tablet 06/04/2020 12:00:00 AM EST eCW1 ([facility]) Morphine Sulfate 15 MG Extended Release Oral Tablet 06/04/19 12:00:00 AM EST eCW1 ([facility]) Morphine Sulfate 15 MG Oral Tablet 06/04/2020 12:00:00 AM EST eCW1 ([facility]) Morphine Sulfate 15 MG Oral Tablet 05/13/2020 12:00:00 AM EST eCW1 ([facility]) Morphine Sulfate 15 MG Oral Tablet 05/13/2020 12:00:00 AM EST eCW1 ([facility]) Morphine Sulfate 15 MG Oral Tablet 04/15/2020 12:00:00 AM EST eCW1 ([facility]) Morphine Sulfate 15 MG Oral Tablet 04/10/2020 12:00:00 AM EST eCW1 ([facility]) Lidocaine 4 % 03/31/2020 12:00:00 AM EST eCW1 ([facility]) Acetaminophen 325 MG / Hydrocodone Bitartrate 10 MG Or al Tablet 03/24/2020 12:00:00 AM EST eCW1 ([facility]) Acetaminophen 325 MG / Hydrocodone Bitartrate 10 MG Or al Tablet 03/24/2020 12:00:00 AM EST eCW1 ([facility]) Lidocaine Hydrochloride 0.05 MG/MG Transdermal Patch [ Lidoderm] 02/28/2020 12:00:00 AM EDT eCW1 ([facility]) Lidocaine Hydrochloride 0.05 MG/MG Transdermal Patch [ Lidoderm] 02/28/2020 12:00:00 AM EDT eCW1 ([facility]) Lidocaine Hydrochloride 0.05 MG/MG Transdermal Patch [ Lidoderm] 02/28/2020 12:00:00 AM EDT eCW1 ([facility]) Acetaminophen 325 MG / Hydrocodone Bitartrate 10 MG Or al Tablet 02/21/2020 12:00:00 AM EDT eCW1 ([facility]) Acetaminophen 325 MG / Hydrocodone Bitartrate 10 MG Or al Tablet 02/21/2020 12:00:00 AM EDT eCW1 ([facility]) Acetaminophen 325 MG / Hydrocodone Bitartrate 5 MG Ora l Tablet [[place]] 02/12/2020 12:00:00 AM EDT eCW1 ([facility])
[2021-03-15] MEDS ORDERED: MIDAZOLAM INJ 2MG/2ML VIAL (J2250 PER 1MG) As Ordered ONE ×2 (11:53→13:48)
[2021-03-15] MEDS ORDERED: THROMBIN SOLN 20,000 UNITS KIT As Ordered ONE (11:53)
[2021-03-15] MEDS ORDERED: LIDOCAINE W/EPINEPHRINE 1% 20ML VIAL As Ordered ONE (11:53)
[2021-03-15] MEDS ORDERED: ONDANSETRON 4MG/2ML VIAL As Ordered ONE (11:53)
[2021-03-15] MEDS ORDERED: dexameTHASONE 4 MG/ML 1ML VIAL (J1100 PER 1MG) As Ordered ONE (11:53)
[2021-03-15] MEDS ORDERED: fentaNYL 100 MCG/2 ML INJECTION (J3010) As Ordered ONE ×2 (11:53→12:48)
[2021-03-15] MEDS ORDERED: GENTAMICIN SULF 80MG/2ML VIAL As Ordered ONE (12:06)
--- NOTE | 2021-03-15 15:00 | REP ---
INDICATION: LUMBAR POST LAMINECTOMY SYNDROME FAILED STIMULATOR. COMPARISON: None. TECHNIQUE: Ten fluoroscopic spot views. 48.7 seconds fluoroscopy time provided FINDINGS: The tips of the dorsal column stimulator are seen at the T8 level. Consider plain radiographic follow-up. IMPRESSION: As above <Electronically signed by Zackary Fraga > 03/15/21 [id number]
[2021-03-15 15:53] VITALS: BP 102/52
== END 2021-03-15 15:54 | disposition home or self-care (01) ==
LOC: M SDC 09:59
PROVIDERS: ATTEND Anesthesiology
DX: M96.1 Postlaminectomy syndrome, not elsewhere classified (principal); T85.192D Other mechanical complication of implanted electronic neurostimulator of spinal cord electrode (lead), subsequent encounter; G89.29 Other chronic pain; K21.9 Gastro-esophageal reflux disease without esophagitis; F17.218 Nicotine dependence, cigarettes, with other nicotine-induced disorders; Z79.899 Other long term (current) drug therapy; Z88.0 Allergy status to penicillin; Z88.5 Allergy status to narcotic agent; Z88.8 Allergy status to other drugs, medicaments and biological substances
CPT/HCPCS: 63661; 76000; 81025; 88300; J1100; J1580; J2250; J2405; J3010

== ENCOUNTER → 2021-03-19 | Outpatient (CLI) | payer MEDICARE ==
[~2021-03-19] MED LIST changes: -CLINDAMYCIN 900 MG in IV 1 EA IV ONE; -LR 1,000 ML IV ONE
== END ==
LOC: M PAIN 15:45
PROVIDERS: ATTEND Anesthesiology
DX: M96.1 Postlaminectomy syndrome, not elsewhere classified (principal); F17.210 Nicotine dependence, cigarettes, uncomplicated; Z96.89 Presence of other specified functional implants; Z88.0 Allergy status to penicillin; Z88.1 Allergy status to other antibiotic agents; Z88.6 Allergy status to analgesic agent; Z88.8 Allergy status to other drugs, medicaments and biological substances; Z79.891 Long term (current) use of opiate analgesic; Z79.899 Other long term (current) drug therapy

== ENCOUNTER → 2021-03-31 | Outpatient (CLI) | payer MEDICARE | LOC: M PAIN 14:45 | PROVIDERS: ATTEND Anesthesiology | DX: M96.1 Postlaminectomy syndrome, not elsewhere classified (principal); F17.210 Nicotine dependence, cigarettes, uncomplicated; Z88.0 Allergy status to penicillin; Z88.1 Allergy status to other antibiotic agents; Z88.6 Allergy status to analgesic agent; Z88.8 Allergy status to other drugs, medicaments and biological substances; Z79.891 Long term (current) use of opiate analgesic; Z79.899 Other long term (current) drug therapy ==

== ENCOUNTER → 2021-05-18 | Outpatient (CLI) | payer MEDICARE | LOC: M TMPAIN 14:15 → M PAIN 14:15 | PROVIDERS: ATTEND Anesthesiology | DX: M96.1 Postlaminectomy syndrome, not elsewhere classified (principal); F17.210 Nicotine dependence, cigarettes, uncomplicated; Z88.0 Allergy status to penicillin; Z88.1 Allergy status to other antibiotic agents; Z88.6 Allergy status to analgesic agent; Z88.8 Allergy status to other drugs, medicaments and biological substances; Z79.891 Long term (current) use of opiate analgesic; Z79.899 Other long term (current) drug therapy ==

== ENCOUNTER 2021-06-01 22:18 | Emergency (ER) | payer MEDICARE ==
[~2021-06-01] VITALS: Ht 162.6 cm; Wt 57.3 kg
[2021-06-01 22:19] VITALS: BP 133/79
== END 2021-06-01 22:49 | disposition left against medical advice (07) ==
LOC: M ED 22:18
DX: Z53.21 Procedure and treatment not carried out due to patient leaving prior to being seen by health care provider (principal)

== ENCOUNTER → 2021-06-16 | Outpatient (REF) | payer MEDICARE | LOC: M LAB REF 12:17 | PROVIDERS: ATTEND Physician Assistant Medical | DX: S40.862A Insect bite (nonvenomous) of left upper arm, initial encounter (principal); W57.XXXA Bitten or stung by nonvenomous insect and other nonvenomous arthropods, initial encounter; Y92.9 Unspecified place or not applicable; Y99.9 Unspecified external cause status; Y93.9 Activity, unspecified ==

== ENCOUNTER → 2021-08-26 | Outpatient (CLI) | payer MEDICARE | LOC: M PAIN 11:00 | PROVIDERS: ATTEND Anesthesiology | DX: M96.1 Postlaminectomy syndrome, not elsewhere classified (principal); F17.210 Nicotine dependence, cigarettes, uncomplicated; Z88.0 Allergy status to penicillin; Z88.1 Allergy status to other antibiotic agents; Z88.6 Allergy status to analgesic agent; Z88.8 Allergy status to other drugs, medicaments and biological substances; Z79.891 Long term (current) use of opiate analgesic; Z79.899 Other long term (current) drug therapy ==

== ENCOUNTER → 2021-12-06 | Outpatient (CLI) | payer MEDICARE, MEDICAID | LOC: M PAIN 10:45 | PROVIDERS: ATTEND Anesthesiology | DX: M96.1 Postlaminectomy syndrome, not elsewhere classified (principal); M54.2 Cervicalgia; M79.603 Pain in arm, unspecified; G89.29 Other chronic pain; F17.210 Nicotine dependence, cigarettes, uncomplicated; Z88.0 Allergy status to penicillin; Z88.1 Allergy status to other antibiotic agents; Z88.6 Allergy status to analgesic agent; Z88.8 Allergy status to other drugs, medicaments and biological substances; Z79.891 Long term (current) use of opiate analgesic; Z79.899 Other long term (current) drug therapy ==

== ENCOUNTER → 2021-12-13 | Outpatient (CLI) | payer MEDICARE, MEDICAID | LOC: M PAIN 13:30 | PROVIDERS: ATTEND Nurse Practitioner Family | DX: Z79.891 Long term (current) use of opiate analgesic (principal) ==

== ENCOUNTER → 2022-02-08 | Outpatient (CLI) | payer MEDICARE, MEDICAID | LOC: M PAIN 11:15 | PROVIDERS: ATTEND Anesthesiology | DX: M96.1 Postlaminectomy syndrome, not elsewhere classified (principal); G89.29 Other chronic pain; F17.210 Nicotine dependence, cigarettes, uncomplicated; Z88.0 Allergy status to penicillin; Z88.1 Allergy status to other antibiotic agents; Z88.6 Allergy status to analgesic agent; Z88.8 Allergy status to other drugs, medicaments and biological substances; Z79.891 Long term (current) use of opiate analgesic; Z79.899 Other long term (current) drug therapy ==

== ENCOUNTER → 2022-03-02 | Outpatient (CLI) | payer MEDICARE, MEDICAID | LOC: M PAIN 11:15 | PROVIDERS: ATTEND Anesthesiology | DX: M96.1 Postlaminectomy syndrome, not elsewhere classified (principal); M54.2 Cervicalgia; M79.603 Pain in arm, unspecified; M79.606 Pain in leg, unspecified; F17.210 Nicotine dependence, cigarettes, uncomplicated; Z79.891 Long term (current) use of opiate analgesic; Z79.899 Other long term (current) drug therapy; Z88.6 Allergy status to analgesic agent; Z88.0 Allergy status to penicillin; Z88.8 Allergy status to other drugs, medicaments and biological substances ==

== ENCOUNTER → 2022-04-21 | Outpatient (CLI) | payer MEDICARE, MEDICAID | LOC: M PAIN 15:30 | PROVIDERS: ATTEND Anesthesiology | DX: M96.1 Postlaminectomy syndrome, not elsewhere classified (principal); G89.29 Other chronic pain; M54.2 Cervicalgia; M79.603 Pain in arm, unspecified; F17.210 Nicotine dependence, cigarettes, uncomplicated; Z88.0 Allergy status to penicillin; Z88.1 Allergy status to other antibiotic agents; Z88.6 Allergy status to analgesic agent; Z88.8 Allergy status to other drugs, medicaments and biological substances; Z79.891 Long term (current) use of opiate analgesic; Z79.899 Other long term (current) drug therapy ==

== ENCOUNTER → 2022-06-28 | Outpatient (CLI) | payer MEDICARE, MEDICAID | LOC: M PAIN 15:15 | PROVIDERS: ATTEND Anesthesiology | DX: M96.1 Postlaminectomy syndrome, not elsewhere classified (principal); M79.603 Pain in arm, unspecified; M54.2 Cervicalgia; G89.29 Other chronic pain; F17.210 Nicotine dependence, cigarettes, uncomplicated; Z88.0 Allergy status to penicillin; Z88.1 Allergy status to other antibiotic agents; Z88.6 Allergy status to analgesic agent; Z88.8 Allergy status to other drugs, medicaments and biological substances; Z79.891 Long term (current) use of opiate analgesic; Z79.899 Other long term (current) drug therapy ==

== ENCOUNTER → 2022-08-16 | Outpatient (CLI) | payer MEDICARE, MEDICAID | LOC: M PAIN 13:00 | PROVIDERS: ATTEND Anesthesiology | DX: Z53.21 Procedure and treatment not carried out due to patient leaving prior to being seen by health care provider (principal) ==

== ENCOUNTER → 2022-08-18 | Outpatient (CLI) | payer MEDICARE, MEDICAID | LOC: M PAIN 15:15 | PROVIDERS: ATTEND Anesthesiology | DX: M79.603 Pain in arm, unspecified (principal); M54.2 Cervicalgia; G89.29 Other chronic pain; F17.210 Nicotine dependence, cigarettes, uncomplicated; Z88.0 Allergy status to penicillin; Z88.1 Allergy status to other antibiotic agents; Z88.6 Allergy status to analgesic agent; Z88.8 Allergy status to other drugs, medicaments and biological substances; Z79.891 Long term (current) use of opiate analgesic; Z79.899 Other long term (current) drug therapy ==

== ENCOUNTER → 2022-10-27 | Outpatient (CLI) | payer MEDICARE, MEDICAID | LOC: M TMPAIN 09:30 → M PAIN 09:30 | PROVIDERS: ATTEND Anesthesiology | DX: M51.17 Intervertebral disc disorders with radiculopathy, lumbosacral region (principal); M96.1 Postlaminectomy syndrome, not elsewhere classified; M54.2 Cervicalgia; F17.210 Nicotine dependence, cigarettes, uncomplicated; Z88.0 Allergy status to penicillin; Z88.1 Allergy status to other antibiotic agents; Z88.6 Allergy status to analgesic agent; Z88.8 Allergy status to other drugs, medicaments and biological substances; Z79.891 Long term (current) use of opiate analgesic; Z79.899 Other long term (current) drug therapy ==

== ENCOUNTER → 2022-11-25 | Outpatient (CLI) | payer MEDICARE, MEDICAID | LOC: M PAIN 15:30 | PROVIDERS: ATTEND Anesthesiology | DX: M96.1 Postlaminectomy syndrome, not elsewhere classified (principal); M54.2 Cervicalgia; G89.29 Other chronic pain; M79.2 Neuralgia and neuritis, unspecified; F17.210 Nicotine dependence, cigarettes, uncomplicated; Z88.0 Allergy status to penicillin; Z88.1 Allergy status to other antibiotic agents; Z88.6 Allergy status to analgesic agent; Z88.8 Allergy status to other drugs, medicaments and biological substances; Z79.891 Long term (current) use of opiate analgesic; Z79.899 Other long term (current) drug therapy ==

== ENCOUNTER → 2022-12-16 | Outpatient (CLI) | payer MEDICARE, MEDICAID | LOC: M PAIN 14:30 | PROVIDERS: ATTEND Anesthesiology | DX: M51.16 Intervertebral disc disorders with radiculopathy, lumbar region (principal); G89.29 Other chronic pain; M79.603 Pain in arm, unspecified; F17.210 Nicotine dependence, cigarettes, uncomplicated; Z88.0 Allergy status to penicillin; Z88.1 Allergy status to other antibiotic agents; Z88.6 Allergy status to analgesic agent; Z88.8 Allergy status to other drugs, medicaments and biological substances; Z79.891 Long term (current) use of opiate analgesic; Z79.899 Other long term (current) drug therapy ==

== ENCOUNTER → 2023-04-12 | Outpatient (CLI) | payer MEDICARE, MEDICAID | LOC: M PAIN 17:00 | PROVIDERS: ATTEND Anesthesiology | DX: M51.16 Intervertebral disc disorders with radiculopathy, lumbar region (principal); M96.1 Postlaminectomy syndrome, not elsewhere classified; M79.603 Pain in arm, unspecified; F17.210 Nicotine dependence, cigarettes, uncomplicated; Z80.8 Family history of malignant neoplasm of other organs or systems; Z88.0 Allergy status to penicillin; Z88.1 Allergy status to other antibiotic agents; Z88.6 Allergy status to analgesic agent; Z88.8 Allergy status to other drugs, medicaments and biological substances; Z79.891 Long term (current) use of opiate analgesic; Z79.899 Other long term (current) drug therapy ==

== ENCOUNTER → 2023-07-26 | Outpatient (CLI) | payer MEDICARE, MEDICAID | LOC: M PAIN 11:30 | PROVIDERS: ATTEND Anesthesiology | DX: M51.16 Intervertebral disc disorders with radiculopathy, lumbar region (principal); Z79.891 Long term (current) use of opiate analgesic; M54.2 Cervicalgia; M96.1 Postlaminectomy syndrome, not elsewhere classified; G89.29 Other chronic pain; F17.210 Nicotine dependence, cigarettes, uncomplicated; Z79.899 Other long term (current) drug therapy; Z88.0 Allergy status to penicillin; Z88.6 Allergy status to analgesic agent; Z88.8 Allergy status to other drugs, medicaments and biological substances ==

== ENCOUNTER → 2023-08-18 | Outpatient (REF) | payer MEDICARE, MEDICAID ==
[2023-08-18 12:38] LABS: APPEARANCE, URINE HAZY (CLEAR); BACTERIA, URINE AUTO 1+ (NEGATIVE); BILIRUBIN, URINE AUTO NEGATIVE (NEGATIVE); BLOOD, URINE BLOOD NEGATIVE (NEGATIVE); COLOR, URINE YELLOW (YELLOW); GLUCOSE, URINE (UA) AUTO NEGATIVE (NEGATIVE); KETONE, URINE AUTO NEGATIVE (NEGATIVE); LEUKOCYTE ESTERASE, URINE AUTO NEGATIVE (NEGATIVE); MUCUS, URINE SMALL (NEGATIVE); NITRITE, URINE AUTO NEGATIVE (NEGATIVE); PROTEIN, URINE AUTO NEGATIVE (NEGATIVE); RBC, URINE AUTO 0 /HPF (0-3); SPECIFIC GRAVITY URINE AUTO 1.006 (1.002-1.035); SQUAMOUS EPITHELIAL CELL UR AU 2 /HPF (0-6); UROBILINOGEN, URINE AUTO 0.2 mg/dL (0.0-2.0); WBC, URINE AUTO 1 /HPF (0-3)
[2023-08-18 13:59] LABS: Trichomonas vaginalis (AMP) NOT DETECTED (NEGATIVE)
[2023-08-18 14:23] LABS: GC DNA AMPLIFICATION NEGATIVE (NEGATIVE)
== END ==
LOC: M LAB REF 11:34
PROVIDERS: ATTEND Physician Assistant
DX: N39.0 Urinary tract infection, site not specified (principal); Z11.3 Encounter for screening for infections with a predominantly sexual mode of transmission; Z72.89 Other problems related to lifestyle

== ENCOUNTER → 2023-09-11 | Outpatient (REF) | payer MEDICARE, MEDICAID | LOC: M SFHCPLAZ 17:14 | PROVIDERS: ATTEND Student in an Organized Health Care Education/Training Program | DX: Z12.4 Encounter for screening for malignant neoplasm of cervix (principal) ==

== ENCOUNTER → 2023-11-21 | Outpatient (REF) | payer MEDICARE, MEDICAID | LOC: M SFHCWAGY 16:53 | PROVIDERS: ATTEND Nurse Practitioner Family | DX: R30.0 Dysuria (principal) ==

== ENCOUNTER → 2023-11-24 | Outpatient (CLI) | payer MEDICARE | LOC: M PAIN 17:00 | PROVIDERS: ATTEND Nurse Practitioner Family | DX: M47.816 Spondylosis without myelopathy or radiculopathy, lumbar region (principal); Z79.891 Long term (current) use of opiate analgesic; M51.17 Intervertebral disc disorders with radiculopathy, lumbosacral region; M96.1 Postlaminectomy syndrome, not elsewhere classified; F17.210 Nicotine dependence, cigarettes, uncomplicated; Z79.899 Other long term (current) drug therapy; Z88.6 Allergy status to analgesic agent; Z88.0 Allergy status to penicillin; Z88.8 Allergy status to other drugs, medicaments and biological substances ==

== ENCOUNTER → 2023-12-29 | Outpatient (REF) | payer MEDICARE, MEDICAID ==
[2023-12-29 17:14] LABS: APPEARANCE, URINE CLEAR (CLEAR); BACTERIA, URINE AUTO NEGATIVE (NEGATIVE); BILIRUBIN, URINE AUTO NEGATIVE (NEGATIVE); BLOOD, URINE BLOOD 1+ (NEGATIVE); COLOR, URINE YELLOW (YELLOW); GLUCOSE, URINE (UA) AUTO NEGATIVE (NEGATIVE); KETONE, URINE AUTO NEGATIVE (NEGATIVE); LEUKOCYTE ESTERASE, URINE AUTO NEGATIVE (NEGATIVE); NITRITE, URINE AUTO NEGATIVE (NEGATIVE); PROTEIN, URINE AUTO NEGATIVE (NEGATIVE); RBC, URINE AUTO 1 /HPF (0-3); SPECIFIC GRAVITY URINE AUTO 1.013 (1.002-1.035); SQUAMOUS EPITHELIAL CELL UR AU 1 /HPF (0-6); UROBILINOGEN, URINE AUTO 0.2 mg/dL (0.0-2.0); WBC, URINE AUTO 0 /HPF (0-3)
== END ==
LOC: M LAB REF 16:08
PROVIDERS: ATTEND Physician Assistant
DX: N39.0 Urinary tract infection, site not specified (principal)

== ENCOUNTER → 2024-01-28 | Outpatient (REF) | payer MEDICARE, MEDICAID | LOC: M LAB REF 19:40 | PROVIDERS: ATTEND Physician Assistant Medical | DX: B34.9 Viral infection, unspecified (principal) ==

== ENCOUNTER → 2024-03-06 | Outpatient (CLI) | payer MEDICARE | LOC: M PAIN 14:30 | PROVIDERS: ATTEND Anesthesiology | DX: M79.601 Pain in right arm (principal); M79.602 Pain in left arm; Z79.891 Long term (current) use of opiate analgesic; M96.1 Postlaminectomy syndrome, not elsewhere classified; M54.6 Pain in thoracic spine; M79.10 Myalgia, unspecified site; M79.18 Myalgia, other site; M54.16 Radiculopathy, lumbar region; M54.2 Cervicalgia; G89.29 Other chronic pain; F17.210 Nicotine dependence, cigarettes, uncomplicated; Z79.899 Other long term (current) drug therapy; Z88.0 Allergy status to penicillin; Z88.6 Allergy status to analgesic agent; Z88.8 Allergy status to other drugs, medicaments and biological substances ==

== ENCOUNTER → 2024-06-14 | Outpatient (CLI) | payer MEDICARE | LOC: M PAIN 16:30 | PROVIDERS: ATTEND Anesthesiology | DX: M51.16 Intervertebral disc disorders with radiculopathy, lumbar region (principal); M54.2 Cervicalgia; G89.29 Other chronic pain; F17.210 Nicotine dependence, cigarettes, uncomplicated; Z79.891 Long term (current) use of opiate analgesic; Z79.899 Other long term (current) drug therapy; Z88.0 Allergy status to penicillin; Z88.6 Allergy status to analgesic agent; Z88.8 Allergy status to other drugs, medicaments and biological substances ==

== ENCOUNTER → 2024-07-25 | Outpatient (REF) | payer MEDICARE, MEDICAID ==
[2024-07-25 21:48] LABS: APPEARANCE, URINE HAZY (CLEAR); BACTERIA, URINE AUTO NEGATIVE (NEGATIVE); BILIRUBIN, URINE AUTO NEGATIVE (NEGATIVE); BLOOD, URINE BLOOD NEGATIVE (NEGATIVE); COLOR, URINE YELLOW (YELLOW); GLUCOSE, URINE (UA) AUTO NEGATIVE (NEGATIVE); KETONE, URINE AUTO NEGATIVE (NEGATIVE); LEUKOCYTE ESTERASE, URINE AUTO 2+ (NEGATIVE); MUCUS, URINE SMALL (NEGATIVE); NITRITE, URINE AUTO NEGATIVE (NEGATIVE); PROTEIN, URINE AUTO NEGATIVE (NEGATIVE); RBC, URINE AUTO 1 /HPF (0-3); SPECIFIC GRAVITY URINE AUTO 1.013 (1.002-1.035); SQUAMOUS EPITHELIAL CELL UR AU 2 /HPF (0-6); UROBILINOGEN, URINE AUTO 0.2 mg/dL (0.0-2.0); WBC, URINE AUTO 27 /HPF (0-3)
[2024-07-25 22:54] LABS: Trichomonas vaginalis (AMP) NOT DETECTED (NEGATIVE)
[2024-07-25 23:18] LABS: GC DNA AMPLIFICATION NEGATIVE (NEGATIVE)
== END ==
LOC: M LAB REF 21:01
PROVIDERS: ATTEND Physician Assistant
DX: N39.0 Urinary tract infection, site not specified (principal); Z11.3 Encounter for screening for infections with a predominantly sexual mode of transmission

== ENCOUNTER 2024-07-28 19:07 | Emergency (ER) | payer MEDICARE, MEDICAID ==
[~2024-07-28] VITALS: Ht 162.6 cm; Wt 54.7 kg
[2024-07-28 19:12] VITALS: BP 132/70; TEMP 99; O2SAT 100
[2024-07-28 20:41] LABS: HCG, SERUM QUALITATIVE NEGATIVE (NEGATIVE)
[2024-07-28 20:43] LABS: Trichomonas vaginalis (AMP) NOT DETECTED (NEGATIVE)
[2024-07-28 21:07] LABS: HEPATITIS B SURFACE ANTIBODY NEGATIVE (POSITIVE)
[2024-07-28 21:07] LABS: GC DNA AMPLIFICATION NEGATIVE (NEGATIVE)
[2024-07-28 21:19] LABS: HEPATITIS B SURFACE ANTIGEN NEGATIVE (NEGATIVE)
[2024-07-28 21:32] LABS: HIV 1&2 SCREEN NEGATIVE (NEGATIVE)
[2024-07-28 21:33] LABS: KETONE, URINE AUTO RFX NEGATIVE (NEGATIVE); LEUKOCYTE ESTERASE UR AUTO RFX NEGATIVE (NEGATIVE); MUCUS, URINE RFX SMALL (NEGATIVE); NITRITE, URINE AUTO RFX NEGATIVE (NEGATIVE); RBC, URINE AUTO RFX 1 /HPF (0-3); SQUAM EPITHELIAL CELL UR AURFX 0 /HPF (0-6); WBC, URINE AUTO RFX 0 /HPF (0-3)
[2024-07-28 21:41] LABS: HEPATITIS C VIRUS ABY INDEX 0.05 INDEX (<0.8)
== END 2024-07-28 22:26 | disposition home or self-care (01) ==
LOC: M ED 19:07
DX: R30.0 Dysuria (principal); N94.89 Other specified conditions associated with female genital organs and menstrual cycle; Z88.0 Allergy status to penicillin; Z88.8 Allergy status to other drugs, medicaments and biological substances; Z88.6 Allergy status to analgesic agent; Z79.899 Other long term (current) drug therapy

== ENCOUNTER → 2024-09-10 | Outpatient (REF) ==
[~2024-09-10] MED LIST changes: -CLOT10TR; +CLOT10TR11
== END ==
LOC: M PLAIMG 13:07
PROVIDERS: ATTEND Internal Medicine
DX: R52 Pain, unspecified (principal)